=== PATIENT | female | born 1960 | race Caucasian/White ===

== ENCOUNTER 2020-01-15 00:27 | Day surgery (SDC) | payer OTHER, SELFPAY ==
[2020-01-13 16:15] VITALS: BMI 21.2
[2020-01-15 09:57] VITALS: BP 93/55; PULSE 82; RESP 16; TEMP 36.7; O2SAT 98
[2020-01-15] MEDS: LACTATED RINGERS 1,000 ML 150 ML IV CONT (10:14)
--- NOTE | 2020-01-15 10:28 | PM.HPGS ---
History of Present Illness History of Present Illness Consent: Risks, benefits, and alternatives have been discussed and questions answered. Patient agrees to proceed with procedure. Chief complaint: neoplasm screening Narrative: Jagdeep Barr is a 59 year old female for colon cancer screening [facility] Past Medical History Medical History (Updated 01/15/20 @ 10:30 by Alfa Zuñiga MD) CAD (coronary artery disease) GERD (gastroesophageal reflux disease) Hyperlipidemia Hypertension Non-Hodgkin lymphoma in remission Surgical History Surgical History (Updated 01/15/20 @ 10:28 by Parish Tafoya MD) S/P CABG x 3 Meds Home Medications and Allergies Home Medications Medication Instructions Recorded Confirmed Type B.subtil-B.bqftqw-Gsngzl-iesyv 1 cap PO DAILY 01/13/20 01/13/20 History [Provad] aspirin [Aspir-81] 81 mg PO DAILY 01/13/20 01/13/20 History evolocumab [Repatha SureClick] See Rx Instructions .ROUTE .COMPLEX 01/13/20 01/13/20 History isosorbide mononitrate 30 mg PO DAILY 01/13/20 01/13/20 History metoprolol succinate 50 mg PO DAILY 01/13/20 01/13/20 History [id number] 1 tablet PO BID 01/13/20 01/15/20 History [Xyzbac] omeprazole magnesium [Prilosec OTC] 20 mg PO DAILY 01/13/20 01/13/20 History oxycodone 5 mg PO Q4H PRN 01/13/20 01/13/20 History vitamin D3-folic acid [Ortho DF] 1 cap PO DAILY 01/13/20 01/13/20 History Allergies Allergy/AdvReac Type Severity Reaction Status Date / Time No Known Allergies Allergy Verified 01/15/20 09:54 Vital Signs Vital Signs - 24 hr 01/15/20 09:57 Temperature 36.7 C Pulse Rate 82 Respiratory Rate 16 Blood Pressure 93/55 L Pulse Oximetry 98 Exam Resp: Auscultation: clear to auscultation bilaterally Cardio: Rate: regular rate Rhythm: regular rhythm GI: GI Palp: Yes Soft to palpation and No Tenderness to palpation present (GI) Assessment and Plan Assessment and plan (1) Colon cancer screening: Code(s): Z12.11 - Encounter for screening for malignant neoplasm of colon Status: Acute
--- NOTE | 2020-01-15 10:29 | WPDANESEPPF ---
Anes - Initial Pre Proc Eval Procedure: Operation Date: 01/15/20 10:30 Proposed Procedures p Screening Colonoscopy - Alfa Zuñiga MD Date/Time: 01/15/20 10:29 Surgeon: Alfa Zuñiga MD Pre Op Diagnosis: neoplasm screening Patient Data Age: 59 Gender: F Height: 5 ft 3 in Weight: 54.6 kg Last Vital Signs Temp 98.1 F 01/15/20 09:57 Pulse 82 01/15/20 09:57 Resp 16 01/15/20 09:57 BP 93/55 L 01/15/20 09:57 Pulse Ox 98 01/15/20 09:57 Allergies Allergy/AdvReac Type Severity Reaction Status Date / Time No Known Allergies Allergy Verified 01/15/20 09:54 Home Medications Medication Instructions Recorded Confirmed Type B.subtil-B.nbnyqs-Oviejd-knmlt 1 cap PO DAILY 01/13/20 01/13/20 History [Provad] aspirin [Aspir-81] 81 mg PO DAILY 01/13/20 01/13/20 History evolocumab [Repatha SureClick] See Rx Instructions .ROUTE .COMPLEX 01/13/20 01/13/20 History isosorbide mononitrate 30 mg PO DAILY 01/13/20 01/13/20 History metoprolol succinate 50 mg PO DAILY 01/13/20 01/13/20 History [id number] [id number] 1 tablet PO BID 01/13/20 01/15/20 History [Xyzbac] omeprazole magnesium [Prilosec OTC] 20 mg PO DAILY 01/13/20 01/13/20 History oxycodone 5 mg PO Q4H PRN 01/13/20 01/13/20 History vitamin D3-folic acid [Ortho DF] 1 cap PO DAILY 01/13/20 01/13/20 History Patient hx anesthesia problems: none Family hx anesthesia problems: none PMFSH Past Medical History Medical History (Updated 01/15/20 @ 10:28 by Parish Tafoya MD) CAD (coronary artery disease) GERD (gastroesophageal reflux disease) Hyperlipidemia Hypertension Non-Hodgkin lymphoma in remission Surgical History Surgical History (Updated 01/15/20 @ 10:28 by Parish Tafoya MD) S/P CABG x 3 Anes - Eval Final PreProcedure Day of Procedure 01/15/20 10:29 Patient weight: normal Heart: regular rate and rhythm Lungs: clear to auscultation Airway: Mallampati scale class II Neurological: alert and oriented Last oral intake: >/= 8 hours ASA classification: III Emergent: no Anesthetic plan: proceed Anesthesia type and monitoring: general GIVS and standard monitoring Informed Consent: The patient's anesthetic plan and its attendant risks and benefits were discussed with the patient/family/POA. Questions were solicited and answers provided to the satisfaction of the patient/family/POA.
[2020-01-15 11:00] VITALS: BP 92/49; PULSE 64; RESP 16; O2SAT 98
[2020-01-15 11:10] VITALS: BP 85/54; PULSE 63; RESP 16; O2SAT 98
[2020-01-15 11:20] VITALS: BP 89/54; PULSE 53; RESP 22; O2SAT 99
== END 2020-01-15 11:39 | disposition home or self-care (01) ==
PROVIDERS: PCP Family Medicine; Referring Provider Obstetrics & Gynecology Gynecology; Visit Provider Internal Medicine Gastroenterology
PROC: 0DJD8ZZ Inspection of Lower Intestinal Tract, Via Natural or Artificial Opening Endoscopic (ICD-10-PCS; CPT 45378; principal; 2020-01-15 10:30)
DX: Z12.11 Encounter for screening for malignant neoplasm of colon (principal); Z80.0 Family history of malignant neoplasm of digestive organs; I10 Essential (primary) hypertension; I25.10 Atherosclerotic heart disease of native coronary artery without angina pectoris; E78.5 Hyperlipidemia, unspecified; K21.9 Gastro-esophageal reflux disease without esophagitis; Z85.72 Personal history of non-Hodgkin lymphomas; Z95.1 Presence of aortocoronary bypass graft; Z79.82 Long term (current) use of aspirin
CPT/HCPCS: 45378; J2001; J2704; J7120

== ENCOUNTER → 2020-09-16 09:18 | Outpatient (CLI) | payer OTHER, SELFPAY ==
--- NOTE | ~2020-09-16 | DEXA_ITS ---
Bone Density Report Name: Jagdeep Barr Age: 60 Sex: Female Ethnicity: White Date of : 1960 Indication: osteopenia; hysterectomy; postmenopausal Referring Provider: ROWDY, LAURIE Study: Bone densitometry was performed. Exam Date: September 16, 2020 Accession number: [id number] Bone Density: Region BMD T-score Z-score Classification AP Spine (L1-L4) 0.944 -0.9 0.6 Normal Femoral Neck (Left) 0.701 -1.3 0.0 Osteopenia Total Hip (Left) 0.866 -0.6 0.4 Normal Femoral Neck (Right) 0.605 -2.2 -0.8 Osteopenia Total Hip (Right) 0.866 -0.6 0.4 Normal Total Hip Mean 0.866 -0.6 0.4 Normal World Health Organization criteria for BMD impression classify patients as: Normal (T-score at or above -1.0), Osteopenia (T-score between -1.0 and -2.5), or Osteoporosis (T-score at or below -2.5). 10-year Fracture Risk(1): Major Osteoporotic Fracture 10% Hip Fracture 1.6% Reported Risk Factors: [place] (), Neck BMD=0.605, BMI=24.1 (1) FRAX(R) Version 3.08. Fracture probability calculated for an untreated patient. Fracture probability may be lower if the patient has received treatment. Previous Exams: Region Exam Age BMD T-score BMD Change BMD Change Date g/cm2 vs Baseline vs Previous AP Spine(L1-L4) 09/16/2020 60 0.944 -0.9 0.087* 0.037* 09/12/2018 58 0.907 -1.3 0.051* 0.044* 11/18/2015 55 0.864 -1.7 0.007 0.007 10/16/2013 53 0.857 -1.7 Total Hip(Left) 09/16/2020 60 0.866 -0.6 -0.020 -0.007 09/12/2018 58 0.873 -0.6 -0.012 -0.020 11/18/2015 55 0.893 -0.4 0.007 0.007 10/16/2013 53 0.885 -0.5 Total Hip(Right) 09/16/2020 60 0.866 -0.6 0.003 -0.035* 09/12/2018 58 0.901 -0.3 0.037* 0.003 11/18/2015 55 0.898 -0.4 0.034* 0.034* 10/16/2013 53 0.864 -0.6 *Denotes significance at 95% confidence level, LSC for AP Spine = 0.022 g/cm2, LSC for Total Hip = 0.027 g/cm2 Clinical Information Provided by Patient: Has the following medical conditions: Hysterectomy Patient maximum height was 62 Menopause Age: 38 Does not regularly consume dairy products Drinks caffeinated beverages Onset of menses at age 11 Number of children 2 Impression: The patient has low bone mass, based on the Right Femoral Neck T-score. The patient has a
== END ==
PROVIDERS: Visit Provider Nurse Practitioner
DX: M85.88 Other specified disorders of bone density and structure, other site (principal); M85.852 Other specified disorders of bone density and structure, left thigh; M85.851 Other specified disorders of bone density and structure, right thigh
CPT/HCPCS: 77080

== ENCOUNTER → 2020-11-25 07:16 | Outpatient (CLI) | payer OTHER, SELFPAY ==
--- NOTE | ~2020-11-25 | MM_ITS ---
EXAMINATION: MM screening ly BI w rox HISTORY: Screening mammogram TECHNIQUE: Craniocaudal and mediolateral oblique 3-D tomosynthesis images were obtained and synthetic 2-D images were generated. CAD analysis was submitted and interpreted. COMPARISON: 11/21/2019, 09/12/2018, 09/01/2017 bilateral digital screening mammogram examinations BREAST PARENCHYMAL COMPOSITION: There are scattered areas of fibroglandular density. FINDINGS: There are scattered bilateral benign calcifications. Stable mild fibroglandular asymmetry. There is no evidence of suspicious mass, calcification, or architectural distortion to suggest malign ned in either breast. There has been no suspicious interval change. IMPRESSION: 1. No mammographic evidence of malignancy. 2. Recommend routine screening mammography in one year. BI-RADS Category 2: Benign finding(s). Reviewed, dictated and finalized at location A. ID INTERN
== END ==
PROVIDERS: Visit Provider Nurse Practitioner
DX: Z12.31 Encounter for screening mammogram for malignant neoplasm of breast (principal)
CPT/HCPCS: 77063; 77067

== ENCOUNTER → 2020-12-16 10:46 | Outpatient (CLI) | payer OTHER, SELFPAY ==
--- NOTE | ~2020-12-16 | US_ITS ---
EXAMINATION: US transvaginal DATE: 12/16/2020 11:19 INDICATION: Left pelvic mass Comparison: Comparison to multiple prior studies sequentially, with oldest reviewed study dated 10/06. TECHNIQUE: Multiple transabdominal and endovaginal sonographic images of the pelvis performed. FINDINGS: The uterus is surgically absent. The ovaries are not visualized. No adnexal masses or fluid collections. There is no free fluid in the pelvis. There are no abnormal masses seen on either side . IMPRESSION: 1. Unremarkable pelvic ultrasound post hysterectomy. Reviewed, dictated and finalized at location B. OPERATOR
== END ==
PROVIDERS: Visit Provider Nurse Practitioner
DX: R10.2 Pelvic and perineal pain (principal); Z90.49 Acquired absence of other specified parts of digestive tract
CPT/HCPCS: 76830

== ENCOUNTER 2021-05-07 09:24 | Outpatient (CLI) | payer OTHER, SELFPAY ==
--- NOTE | ~2021-05-07 | MR_ITS ---
EXAMINATION: MR lumbar spine wo con DATE: 05/07/2021 10:11 INDICATION: Other spondylosis with myelopathy. TECHNIQUE: Magnetic resonance imaging (MRI) of the lumbar spine was performed without intravenous con trast. Sequences included sagittal T2-weighted FSE, sagittal T2-weighted FS FSE, sagittal T1-weighted FSE, and axial T2-weighted FSE. COMPARISON: Lumbar spine MRI 12/03/2014 FINDINGS: There is 11 degrees levoscoliosis of lumbar spine. There is 4 mm retrolisthesis of L1 on L2 and 3 mm retrolisthesis of L2 on L3 and L3 on L4. Vertebral body heights are normal. There is severe ly decreased disc height at L1-L2, moderately decreased disc height from L2-L3 through L4-L5, and sev erely decreased disc height at L5-S1 with endplate remodeling. The distal spinal cord signal intensit y is normal. The conus medullaris is at L1. The following disc levels are specifically discussed: L1-L2: The disc is bulging. There is no facet joint osteoarthritis. There is mild right and moderate left neural foraminal stenosis. There is mild central canal stenosis. L2-L3: The disc is bulging. There is moderate right and mild left facet joint osteoarthritis. There i s mild bilateral neural foraminal stenosis. There is mild central canal stenosis. L3-L4: The disc is bulging and has an annular fissure. There is mild bilateral facet joint osteoarthr itis. There is moderate right and mild left neural foraminal stenosis. There is mild central canal st enosis. L4-L5: The disc is bulging and has an annular fissure. There is severe bilateral facet joint osteoart hritis. There is moderate right and mild left neural foraminal stenosis. There is mild central canal stenosis. L5-S1: The disc is bulging. There is severe bilateral facet joint osteoarthritis. There is moderate b ilateral neural foraminal stenosis. There is mild central canal stenosis. IMPRESSION: 1. Severe lumbar spondylosis, worsened from 12/03/2014. 2. Lumbar levoscoliosis. Reviewed, dictated and finalized at location A.
== END 2021-05-07 09:25 | disposition home or self-care (01) ==
PROVIDERS: PCP Family Medicine; Visit Provider Nurse Practitioner
DX: M47.16 Other spondylosis with myelopathy, lumbar region (principal); M48.061 Spinal stenosis, lumbar region without neurogenic claudication; M47.817 Spondylosis without myelopathy or radiculopathy, lumbosacral region; M48.07 Spinal stenosis, lumbosacral region
CPT/HCPCS: 72148

== ENCOUNTER → 2021-12-01 10:13 | Outpatient (CLI) | payer OTHER, SELFPAY ==
--- NOTE | ~2021-12-01 | MM_ITS ---
EXAMINATION: MM screening [facility] BI w rox HISTORY: Screening mammogram TECHNIQUE: Craniocaudal and mediolateral oblique 3-D tomosynthesis images were obtained and synthetic 2-D images were generated. CAD analysis was submitted and interpreted. COMPARISON: 11/25/2020, 11/20/2019, 09/12/2018 BREAST PARENCHYMAL COMPOSITION: There are scattered areas of fibroglandular density. FINDINGS: Stable masses in the upper outer quadrants of the breasts likely represent intramammary lym ph nodes and are considered benign given the lack of interval change. There is no evidence of suspici ous mass, calcification, or architectural distortion to suggest malignancy in either breast. There currie s been no suspicious interval change. IMPRESSION: 1. No mammographic evidence of malignancy. 2. Recommend routine screening mammography in one year. BI-RADS Category 2: Benign finding(s). Reviewed, dictated and finalized at location A. R TAILER
== END ==
PROVIDERS: PCP Family Medicine; Visit Provider Nurse Practitioner
DX: Z12.31 Encounter for screening mammogram for malignant neoplasm of breast (principal)
CPT/HCPCS: 77063; 77067

== ENCOUNTER 2022-09-30 07:14 | Observation (INO) | payer OTHER, SELFPAY ==
[2022-09-30] VITALS (14 sets, daily range): BP systolic 134–176; BP diastolic 59–87; PULSE 67–88; RESP 15–20; TEMP 36.6–37; O2SAT 98–100; BMI 21.0
--- NOTE | ~2022-09-30 | CT_ITS ---
EXAMINATION: CT abdomen pelvis w con DATE: 09/30/2022 08:59 INDICATION: Bloody stool, vomiting, abdominal cramping TECHNIQUE: Computed tomography (CT) of the abdomen and pelvis was performed with 100 CC Omnipaque 350 intravenous contrast. Automated exposure control and iterative reconstruction technique were employe d. Exam dose: 193.50 mGy-cm total exam DLP. COMPARISON: None. FINDINGS: Status post sternotomy. Normal heart size. No pericardial or pleural effusion. The lung bas es are clear of infiltrate or consolidation. Minimal discoid atelectasis or scarring at the base of t he lingula. Hepatic steatosis. Possible small hemangioma of the posterior lateral aspect of the hepatic dome. The gallbladder appears unremarkable. No bile duct or pancreatic duct dilatation. No pancreatic mass les ion or calcification is detected. Normal splenic size. Normal morphology of the adrenal glands. 2 cm left renal cyst. The kidneys are otherwise unremarkable. Normal caliber of the abdominal aorta. No intraperitoneal or retroperitoneal or pelvic mass lesion or adenopathy or ascites. The urinary bladder is unremarkable. The uterus is absent. There is thickening of the wall of the colon in the sigmoid and descending colon particularly, with p ericolic soft tissue thickening, particularly prominent along the descending colon. Findings are cons istent with colitis. Consider infectious, inflammatory or ischemic colitis. No significant stenosis o f the celiac or superior mesenteric arteries is noted. There is prominent calcification at the origin of the inferior mesenteric artery. No bowel obstruction or intraperitoneal free air. Small fat-containing left inguinal hernia. There is degenerative disc disease throughout the lumbar spine, particular severe at L1-2, L4-5 and L 5-S1. There is associated minimal retrolisthesis at L1-2, L2-3 and L5-S1. IMPRESSION: Thickening of the wall of the colon, particularly sigmoid and descending colon, with per icolic stranding. Findings are consistent with colitis. Consider infectious, inflammatory or ischemic colitis. Hepatic steatosis Possible small hepatic hemangioma 2 cm left renal cyst Reviewed, dictated and finalized at [facility]. Reviewed, dictated and finalized at location A. GHT CLERK IMPRESSION: Thickening of the wall of the colon, particularly sigmoid and desc ending colon, with pericolic stranding. Findings are consistent with colitis. C onsider infectious, inflammatory or ischemic colitis. Hepatic steatosis Possible small hepatic hemangioma 2 cm left renal cyst
[2022-09-30 08:07] LABS: Basophils Percent Auto 0.2 % (0.2-1.2); Eosinophils Percent Auto 0.3 % (0-4.4); Hematocrit 37.4 % (37.0-47.0); Hemoglobin 12.6 g/dL (12.0-15.0); Immature Granulocyte Absolute 0.05 K/mm3 (0.00-0.031); Immature Granulocyte Percent A 0.4 % (0-0.5); Lymphocytes Absolute Auto 1.07 K/mm3 (0.9-3.2); Lymphocytes Percent Auto 7.7 % (18.3-44.2); Mean Corpuscular HGB Conc 33.7 g/dl (32-36); Mean Corpuscular Hemoglobin 32.1 pg (26-34); Mean Corpuscular Volume 95.4 fl (80-100); Mean Platelet Volume 9.3 fl (7.4-10.4); Monocytes Absolute Auto 1.8 K/mm3 (0.1-0.6); Monocytes Percent Auto 13.3 % (2.6-8.5); Neutrophils Absolute Auto 10.8 K/mm3 (1.3-6.7); Neutrophils Percent Auto 78.1 % (45.5-73.1); Platelet Count Result 304 k/mm3 (150-375); Red Blood Count 3.92 M/mm3 (4.2-5.4); Red Cell Distribution Width 12.8 % (11.5-14.5); White Blood Count 13.8 K/mm3 (4.5-10.0)
[2022-09-30 08:20] LABS: Alanine Aminotransferase 25 U/L (6-35); Albumin Level 4.9 g/dL (3.5-5.1); Alkaline Phosphatase 85 U/L (38-126); Anion Gap 11 mmol/L (8-16); Aspartate Amino Transferase 34 U/L (14-36); Bilirubin,Total 0.5 mg/dL (0.2-1.3); Blood Urea Nitrogen 23 mg/dL (7-17); Calcium 9.8 mg/dL (8.4-10.2); Carbon Dioxide 25 mmol/L (22-30); Chloride 104 mmol/L (98-107); Estimated CRCL calculation 58 ml/min; Estimated Glomerular Filt Rate > 60; Glucose 119 mg/dL (65-110); Lipase 128 U/L (23-300); Potassium 4.1 mmol/L (3.4-5.0); Sodium 140 mmol/L (137-145)
[2022-09-30 08:27] LABS: Partial Thromboplastin Time 27.1 SECONDS (22.3-36.8); Prothrombin Time 13.1 Seconds (11.1-14.7)
--- NOTE | 2022-09-30 09:39 | ED.GENADULT ---
HPI - General Adult General Chief complaint: GI Bleed Stated complaint: BLOOD IN STOOL Time Seen by Provider: 09/30/22 08:27 Source: patient and RN notes reviewed Mode of arrival: ambulatory Limitations: no limitations History of Present Illness HPI narrative: This is a 62 year old female who presents for evaluation of rectal bleeding. She states last night she developed lower abdominal cramping and this morning she developed diarrhea. She initially had nonbloody watery diarrhea, and this morning she developed bright red per rectum. Her last episode started 2 hours ago. She still continues to have mild lower abdominal cramping. She denies nausea, vomiting, fever, or chills. She denies recent antibiotics use. She denies history of similar episodes. Related Data Home Medications Medication Instructions Recorded Confirmed aspirin 81 mg tablet,delayed 81 mg PO DAILY 01/13/20 09/30/22 release (Aspir-) evolocumab 140 mg/mL subcutaneous See Rx Instructions .Route .COMPLEX 01/13/20 09/30/22 pen injector ([employer]) isosorbide mononitrate 30 mg 30 mg PO DAILY 01/13/20 09/30/22 tablet,extended release 24 hr metoprolol succinate 50 mg 50 mg PO DAILY 01/13/20 09/30/22 tablet,extended release 24 hr vitamin D3 94.38 mcg (3,775 1 cap PO DAILY 01/13/20 09/30/22 unit)-folic acid 1 mg capsule (Ortho DF) ascorbic acid (vitamin C) 500 mg PO DAILY 09/30/22 09/30/22 co M00-dzlb oil-omega 3-E 2,400 mg PO DAILY 09/30/22 09/30/22 cyanocobalamin (vitamin B-12) 1,000 mg PO DAILY 09/30/22 09/30/22 lisinopril 10 mg tablet 10 mg PO DAILY 09/30/22 09/30/22 multivitamin with minerals-folic 1 tablet PO DAILY 09/30/22 09/30/22 acid 0.4 mg tablet Allergies Allergy/AdvReac Type Severity Reaction Status Date / Time No Known Allergies Allergy Verified 01/15/20 09:54 Review of Systems Review of Systems: All systems reviewed & are unremarkable except as noted in HPI and below Constitutional: Constitutional: Denies chills, Denies fatigue and Denies fever(s) Respiratory: Respiratory: Denies chest congestion, Denies cough and Denies dyspnea Gastrointestinal: Gastrointestinal: Reports abdominal pain, Reports diarrhea, Denies nausea and Denies vomiting Genitourinary: Genitourinary: Denies abnormal vaginal bleeding Musculoskeletal: Musculoskeletal: Denies back pain [facility] Past Medical History Medical History (Updated 09/30/22 @ 18:18 by Romelia Gilbert MD) Abdominal pain Blood in stool CAD (coronary artery disease) GERD (gastroesophageal reflux disease) Hyperlipidemia Hypertension Leukocytosis Non-Hodgkin lymphoma in remission s/p chemotherapy tx in 2004 Surgical History Surgical History (Updated 09/30/22 @ 16:25 by Gregg Mckeon MD) S/P CABG x 3 2017 S/P HATTIE (total abdominal hysterectomy) Family History Family History (Updated 09/30/22 @ 16:26 by Gregg Mckeon MD) Father Heart disease Mother Heart disease Sibling ALS (amyotrophic lateral sclerosis) Social History Social History (Updated 09/30/22 @ 16:27 by Gregg Mckeon MD) Social History: lives at home with her . She quit tobacco in 1977 after smoking 1 pack per week 4 years. She drinks 2 alcoholic drinks per week. No drug use but used acid and marijuana when she was young. Full code. She nominates her to be the one who would make medical decisions for her if she is unable. Smoking packs per day: 1 Smoking cigarettes per day: 20.0 Years smoked: 4 Smoking pack-years: 4.00 Smoking status: Former smoker Tobacco type: cigarettes Alcohol intake: current Drinks per week: 2 Substance use: never Substance use type: does not use Lack of Transportation: No Lack of Food: Never True Current Housing: I Have Housing Concerned About Future Housing: No Difficulty Paying Gas/Electric Bills: No Difficulty Paying for Meds: No Currently Unemployed: No Education: High School Diploma/GED D
[2022-09-30] MEDS: SODIUM CHLORIDE 0.9% IV 1,000 ML 999 ML IV CONT (09:46)
--- NOTE | 2022-09-30 09:49 | PC.NURSE ---
RN to bedside to start fluids, pt had episode stool incontinence. Pt stood up and approx 8 in diameter puddle of bright red blood dripped onto floor from rectum, no clots present, on bedding was smears. RN replaced bed linens, pt cleaned herself up and given clean gown. MD Gilbert made aware. IV fluids infusing, call light in reach.
[2022-09-30 11:32] LABS: Hematocrit 34.2 % (37.0-47.0); Hemoglobin 11.5 g/dL (12.0-15.0)
[2022-09-30 11:57] LABS: Influenza A QL RT-PCR Negative (Negative); Influenza B QL RT-PCR Negative (Negative); SARS-CoV-2 RNA PCR Negative
[2022-09-30] MEDS: SODIUM CHLORIDE 0.9% IV 1,000 ML 125 ML IV CONT (14:01)
[2022-09-30 16:03] LABS: Hematocrit 34.8 % (37.0-47.0); Hemoglobin 11.6 g/dL (12.0-15.0)
--- NOTE | 2022-09-30 16:12 | PM.IMHP ---
H&P: HPI History of Present Illness Date/Time: 09/30/22 16:12 Chief Complaint: Rectal bleeding Narrative: 62yo female with HTN, CAD and GERD presents to the ED with complaints of nausea, vomiting, diarrhea with rectal bleeding. Pateint was feeling well until after dinner when she developed crampy abdominal pain then nausea, comiting and diarrhea. She had about 3 episodes of emesis without bleeding. No fever but with chills. She had about 4 diarrheal stools with some improvement initially but then with recurrent crampy abd pain with bright red blood per rectum. Crampy pain would resolve after the BM. She was up frequently overnight with these symptoms. The nausea and vomiting resolved. She had about 8 bloody BMs prior to admission. No history of IBS or IBD. Her last colonoscopy was in January 2020 which was normal. She has never had this before. No sick contacts. No recent antibiotics. She has city water. No recent travel. She denies any headaches, chest pain, palpitations, shortness of breath, cough, dysuria or hematuria. No new medications. This morning her symptoms worsened and she presented to the hospital for evaluation. In the ED, blood pressure was elevated at 150 8/78 otherwise was hemodynamically stable. WBC 13.8K and Hgb 12.6. CT A/P showing colonic wall thickening in the sigmoid and descending colon with pericolic stranding. She was started on IV fluids and Zosyn. Serial HH ordered. She was admitted for further care. Review of Systems Review of Systems: All systems reviewed & are unremarkable except as noted in HPI and below PMFSH Past Medical History Medical History (Updated 09/30/22 @ 18:18 by Romelia Gilbert MD) Abdominal pain Blood in stool CAD (coronary artery disease) GERD (gastroesophageal reflux disease) Hyperlipidemia Hypertension Leukocytosis Non-Hodgkin lymphoma in remission s/p chemotherapy tx in 2004 Surgical History Surgical History (Updated 09/30/22 @ 16:25 by Gregg Mckeon MD) S/P CABG x 3 2017 S/P HATTIE (total abdominal hysterectomy) Family History Family History (Updated 09/30/22 @ 16:26 by Gregg Mckeon MD) Father Heart disease Mother Heart disease Sibling ALS (amyotrophic lateral sclerosis) Social History Social History (Updated 09/30/22 @ 16:27 by Gregg Mckeon MD) Social History: lives at home with her . She quit tobacco in 1977 after smoking 1 pack per week 4 years. She drinks 2 alcoholic drinks per week. No drug use but used acid and marijuana when she was young. Full code. She nominates her to be the one who would make medical decisions for her if she is unable. Smoking packs per day: 1 Smoking cigarettes per day: 20.0 Years smoked: 4 Smoking pack-years: 4.00 Smoking status: Former smoker Tobacco type: cigarettes Alcohol intake: current Drinks per week: 2 Substance use: never Substance use type: does not use Lack of Transportation: No Lack of Food: Never True Current Housing: I Have Housing Concerned About Future Housing: No Difficulty Paying Gas/Electric Bills: No Difficulty Paying for Meds: No Currently Unemployed: No Education: High School Diploma/GED Difficulty w/ Childcare or Family Care: No Spiritual care concerns: No Meds Home Medications and Allergies Home Medications Medication Instructions Recorded Confirmed Type aspirin 81 mg tablet,delayed 81 mg PO DAILY 01/13/20 09/30/22 History release (Aspir-) evolocumab 140 mg/mL subcutaneous See Rx Instructions .Route .COMPLEX 01/13/20 09/30/22 History pen injector (Yoanna Villatoro) isosorbide mononitrate 30 mg 30 mg PO DAILY 01/13/20 09/30/22 History tablet,extended release 24 hr metoprolol succinate 50 mg 50 mg PO DAILY 01/13/20 09/30/22 History tablet,extended release 24 hr vitamin D3 94.38 mcg (3,775 1 cap PO DAILY 01/13/20 09/30/22 History unit)-folic acid 1 mg capsule (Ortho DF) ascorbic
--- NOTE | 2022-09-30 17:52 | WPDGICN ---
Assessment and Plan Assessment and plan (1) Colitis: Code(s): K52.9 - Noninfective gastroenteritis and colitis, unspecified Status: Acute Assessment and Plan: differential could be infectious vs ischemic but already doing better, no more pain supportive care with iv fluids and antibiotics exam benign today stool sample pending liquid diet and then advance as tolerated (2) Blood in stool: Code(s): K92.1 - Melena Status: Acute Assessment and Plan: h/h stable from colitis may need colonoscopy in 4-6 weeks after fully recovered (3) Leukocytosis: Code(s): D72.829 - Elevated white blood cell count, unspecified Status: Acute Assessment and Plan: trending no fever (4) Abdominal pain: Code(s): R10.9 - Unspecified abdominal pain Status: Acute Assessment and Plan: almost gone (5) Hypertension: Code(s): I10 - Essential (primary) hypertension Status: Acute GI Consult Note Consult date/time: 09/30/22 17:52 Reason for consult: colitis, bloody stools HPI: Jagdeep Barr is a 62 year old female with history of?HTN, CAD and GERD how came to the ED with new onset of nausea, vomiting, diarrhea with rectal bleeding that started yesterday. She developed crampy abdominal pain then nausea, vomiting and diarrhea, no fever but had chills, then noted loose stools with bright red blood per rectum. Her last colonoscopy was in January 2020 which was normal. Denies sick contacts, no recent antibiotics, no recent travel.? Labs showed WBC 13.8K and Hgb 12.6. CT A/P reviewed and showed colonic wall thickening in the sigmoid and descending colon with pericolic stranding. She was started on IV fluids and Zosyn. Today already feeling better and denies pain. Review of Systems Review of Systems: All systems reviewed & are unremarkable except as noted in HPI and below Constitutional: Constitutional: Reports chills, Denies fatigue and Denies fever(s) Eyes: Eyes: Denies blurry vision ENT: Reports Normal hearing present Cardiovascular: Cardiovascular: Denies chest pain Respiratory: Respiratory: Denies chest congestion, Denies cough and Denies dyspnea Gastrointestinal: Gastrointestinal: Reports abdominal pain, Reports diarrhea, Denies nausea and Denies vomiting Genitourinary: Genitourinary: Denies abnormal vaginal bleeding Musculoskeletal: Musculoskeletal: Denies back pain Integumentary/Breasts: Skin/Breast: Denies rash Neurologic: Denies Abnormal speech present Psychiatric: Psychiatric: Denies anxiety [facility] Past Medical History Medical History (Updated 09/30/22 @ 17:56 by Shantanu Kuhn MD) Abdominal pain Blood in stool CAD (coronary artery disease) GERD (gastroesophageal reflux disease) Hyperlipidemia Hypertension Leukocytosis Non-Hodgkin lymphoma in remission s/p chemotherapy tx in 2004 Surgical History Surgical History (Updated 09/30/22 @ 16:25 by Gregg Mckeon MD) S/P CABG x 3 2017 S/P HATTIE (total abdominal hysterectomy) Family History Family History (Updated 09/30/22 @ 16:26 by Gregg Mckeon MD) Father Heart disease Mother Heart disease Sibling ALS (amyotrophic lateral sclerosis) Social History Social History (Updated 09/30/22 @ 16:27 by Gregg Mckeon MD) Social History: lives at home with her . She quit tobacco in 1977 after smoking 1 pack per week 4 years. She drinks 2 alcoholic drinks per week. No drug use but used acid and marijuana when she was young. Full code. She nominates her to be the one who would make medical decisions for her if she is unable. Smoking packs per day: 1 Smoking cigarettes per day: 20.0 Years smoked: 4 Smoking pack-years: 4.00 Smoking status: Former smoker Tobacco type: cigarettes Alcohol intake: current Drinks per week: 2 Substance use: never Substance use type: does not use Lack of Transportation: No Lack of Food: Never
[2022-09-30 19:13] LABS: Toxigenic C. Diff NEGATIVE (NEGATIVE)
--- NOTE | 2022-09-30 19:17 | ADMGEN ---
This patient, Jagdeep Barr, was admitted to 2 Medical Room 251-01. Patient/family oriented to hospital policies and general routines including ID bracelet, bed and alarms, visiting hours, pain management, procedures, bathroom and other care routines, personal items, smoking policy, room service/diet, and visiting hours. Information on how to activate the Rapid Response Team has been discussed. Patient/Family are encouraged to report perceived risks to care and to ask questions if they do not understand what they are told or what they should do.
[2022-09-30 22:14] LABS: Hematocrit 33.4 % (37.0-47.0); Hemoglobin 11.2 g/dL (12.0-15.0)
[2022-10-01] MEDS: SODIUM CHLORIDE 0.9% IV 1,000 ML 125 ML IV CONT (02:35)
[2022-10-01 05:47] LABS: Basophils Percent Auto 0.3 % (0.2-1.2); Eosinophils Absolute Auto 0.1 K/mm3 (0-0.3); Eosinophils Percent Auto 1.4 % (0-4.4); Hematocrit 33.9 % (37.0-47.0); Hemoglobin 11.2 g/dL (12.0-15.0); Immature Granulocyte Absolute 0.03 K/mm3 (0.00-0.031); Immature Granulocyte Percent A 0.3 % (0-0.5); Lymphocytes Absolute Auto 1.15 K/mm3 (0.9-3.2); Lymphocytes Percent Auto 13.2 % (18.3-44.2); Mean Corpuscular Hemoglobin 31.9 pg (26-34); Mean Corpuscular Volume 96.6 fl (80-100); Mean Platelet Volume 9.3 fl (7.4-10.4); Monocytes Absolute Auto 1.2 K/mm3 (0.1-0.6); Neutrophils Absolute Auto 6.2 K/mm3 (1.3-6.7); Neutrophils Percent Auto 70.8 % (45.5-73.1); Platelet Count Result 238 k/mm3 (150-375); Red Blood Count 3.51 M/mm3 (4.2-5.4); Red Cell Distribution Width 12.9 % (11.5-14.5); White Blood Count 8.7 K/mm3 (4.5-10.0)
[2022-10-01 05:59] LABS: Alanine Aminotransferase 17 U/L (6-35); Albumin Level 3.5 g/dL (3.5-5.1); Alkaline Phosphatase 51 U/L (38-126); Anion Gap 3 mmol/L (8-16); Aspartate Amino Transferase 32 U/L (14-36); Bilirubin,Total 0.7 mg/dL (0.2-1.3); Blood Urea Nitrogen 8 mg/dL (7-17); Calcium 8.2 mg/dL (8.4-10.2); Carbon Dioxide 22 mmol/L (22-30); Chloride 111 mmol/L (98-107); Estimated CRCL calculation 78 ml/min; Estimated Glomerular Filt Rate > 60; Glucose 105 mg/dL (65-110); Sodium 136 mmol/L (137-145)
[2022-10-01 06:00] VITALS: BP 114/54; PULSE 63; RESP 20; TEMP 36.3; O2SAT 98
[2022-10-01] MEDS: CYANOCOBALAMIN 1,000 MCG TABLET 1000 MCG PO (09:12)
[2022-10-01 09:13] VITALS: PULSE 80
[2022-10-01] MEDS: lisinopriL 10 MG TABLET PO (09:13)
[2022-10-01] MEDS: METOPROLOL SUCCINATE EXT REL 50 MG TABCR PO (09:13)
[2022-10-01] MEDS: ISOSORBIDE MONONITRATE 30 MG TAB.ER.24H PO (09:15)
--- NOTE | 2022-10-01 09:40 | WPDGIPROGNO ---
Progress Note: A&P Assessment and Plan (1) Colitis: Code(s): K52.9 - Noninfective gastroenteritis and colitis, unspecified Status: Acute Assessment and Plan: CT scan shows: There is thickening of the wall of the colon in the sigmoid and descending colon particularly, with pericolic soft tissue thickening, particularly prominent along the descending colon. Findings are consistent with colitis. Consider infectious, inflammatory or ischemic colitis. No significant stenosis of the celiac or superior mesenteric arteries is noted. There is prominent calcification at the origin of the inferior mesenteric artery. No bowel obstruction or intraperitoneal free air. I think this is most consistent with ischemic colitis. Stools for enteric pathogens have been sent. (2) Bright red rectal bleeding: Code(s): K62.5 - Hemorrhage of anus and rectum Status: Acute Assessment and Plan: It appears that this has stopped for now. History of coronary artery disease and coronary bypass, triple. (3) CAD (coronary artery disease): Code(s): I25.10 - Atherosclerotic heart disease of [place] coronary artery without angina pectoris Status: Acute (4) Leukocytosis: Code(s): D72.829 - Elevated white blood cell count, unspecified Status: Acute Assessment and Plan: White blood count was elevated at 13,800 but now is down to 8,700. currently on Zosyn. (5) Nausea and vomiting: Code(s): R11.2 - Nausea with vomiting, unspecified Status: Acute Assessment and Plan: No further emesis, but she is not very interested in her clear liquid diet tray. She does not like lemon popsicles. She has tried some broth and kept it down. Will advance diet when she is ready. Subjective Date/time seen: 10/01/22 09:40 Jagdeep states that she felt well until she had some broccoli at Thanksgiving dinner. She then became warm and sweaty and developed nausea. She had cramping. She went to the bathroom and had a bowel movement. Because she was so warm and diaphoretic she tried to take a shower and was incontinent in the shower. A short time later she began to have bloody stools multiple times. She also was nauseated and vomited at least once. She is feeling somewhat better. She has had no emesis during the night and is tolerating some clear liquids but not particularly hungry yet Exam Const: General: alert Orientation/consciousness: patient oriented x3 Resp: Auscultation: clear to auscultation bilaterally Cardio: Rhythm: regular rhythm GI: GI Palp: Yes Soft to palpation, Yes Tenderness to palpation present (GI) ( diffusely and mildly tender left lower quadrant and left mid abdomen) and Yes No hepatosplenomegaly present Auscultation: normal bowel sounds Neuro: General: patient oriented x3 Objective Data Vital Signs Vital Signs: Vital Signs - 24 hr 09/30/22 12:23 09/30/22 10:06 09/30/22 10:16 Temperature Pulse Rate 74 Respiratory Rate 16 Blood Pressure 150/76 H Pulse Oximetry 99 100 99 Oxygen Delivery 09/30/22 12:44 09/30/22 15:01 09/30/22 20:51 Temperature 37.0 C 36.8 C Pulse Rate 77 71 Respiratory Rate 18 20 Blood Pressure 142/67 H 134/59 L Pulse Oximetry 100 98 Oxygen Delivery Room Air 10/01/22 06:00 10/01/22 09:13 Temperature 36.3 C L Pulse Rate 63 80 Respiratory Rate 20 Blood Pressure 114/54 L Pulse Oximetry 98 Oxygen Delivery Intake/Output Intake/Output: Intake & Output 09/28/22 09/29/22 09/30/22 10/01/22 23:59 23:59 23:59 23:59 Intake Total 2200 700 Balance 2200 700 Meds/Results Medications: Active Medications Generic Name Dose Route Start Last Admin Trade Name Freq PRN Reason Stop Dose Admin Ascorbic Acid 500 mg 10/01/22 09:00 Ascorbic Acid 500 Mg Tablet PO DAILY SANDRA Cyanocobalamin 1,000 mcg 10/01/22 09:00 10/01/22 09:12 Cyanocobalamin 1,000 Mcg Tablet PO 1,000 mcg DAILY SANDRA A
[2022-10-01] MEDS: ASCORBIC ACID 500 MG TABLET PO (10:51)
[2022-10-01] MEDS: SODIUM CHLORIDE 0.9% IV 1,000 ML 70 ML IV CONT ×2 (10:53→23:13)
--- NOTE | 2022-10-01 12:33 | PM.IMPN ---
Progress Note: A&P Assessment and Plan (1) Colitis: Code(s): K52.9 - Noninfective gastroenteritis and colitis, unspecified Status: Acute Assessment and Plan: Patient develops abdominal cramping and bright red blood per rectum prior to admission. CT of the abdomen and pelvis showed thickening of the colon particularly sigmoid and descending colon with pericolonic stranding. Findings are consistent with colitis. Infectious versus ischemic colitis. She was started on Zosyn on admission. White count was elevated on admission but now normal. CDiff negative. Stool cultures pending. She is having clinical improvement with resolving symptoms. Advance diet per GI. Appreciate GI input. (2) Bright red rectal bleeding: Code(s): K62.5 - Hemorrhage of anus and rectum Status: Acute Assessment and Plan: As above. Hemoglobin has dropped to 11.2 but overall stable. Continue to follow. (3) CAD (coronary artery disease): Code(s): I25.10 - Atherosclerotic heart disease of [place] coronary artery without angina pectoris Status: Acute Assessment and Plan: No complaints of chest pain or shortness of breath. Continue mTOR, lisinopril and Toprol. Aspirin is on hold. (4) Hypertension: Code(s): I10 - Essential (primary) hypertension Status: Acute Assessment and Plan: Patient's blood pressure was reviewed on 10/01 Blood pressure was mildly elevated yesterday but has improved since resuming oral medications. Will continue current medications. (5) Hyperlipidemia: Code(s): E78.5 - Hyperlipidemia, unspecified Status: Acute Assessment and Plan: Stable. LFTs normal. Repatha remains on hold. Subjective Date/time seen: 10/01/22 12:33 Interval history: 62yo female with HTN and CAD here for BRBPR and found to have colitis. No problems overnight. Tolerated the liquid diet this morning. No CP or SOB, No cough. No n/v. Still with crampy abd pain with resulting BM. Had 12 BMs yesterday and 2 so far since midnight. Still having bloody stools but seems to be fading. Exam Narrative: AF 97.4 114/54 80 20 98% ra Gen - NARD Chest - CTA bilaterally, nml RR CV - RRR S1/s2 Abd - soft, minimal left sided abd pain. No guarding or rebound. Ext - no pedal edema. Neuro - nonfocal Psych - normal mood and affect. Skin - warm and dry. Objective Data Vital Signs Vital Signs: Vital Signs - 24 hr 09/30/22 12:44 09/30/22 15:01 09/30/22 20:51 Temperature 98.6 F 98.3 F Pulse Rate 77 71 Respiratory Rate 18 20 Blood Pressure 142/67 H 134/59 L Pulse Oximetry 100 98 Oxygen Delivery Room Air 10/01/22 06:00 10/01/22 09:13 Temperature 97.4 F L Pulse Rate 63 80 Respiratory Rate 20 Blood Pressure 114/54 L Pulse Oximetry 98 Oxygen Delivery Intake/Output Intake/Output: Intake & Output 09/28/22 09/29/22 09/30/22 10/01/22 23:59 23:59 23:59 23:59 Intake Total 2200 2200 Balance 2200 2200 Meds/Results Medications: Active Medications Generic Name Dose Route Start Last Admin Trade Name Freq PRN Reason Stop Dose Admin Ascorbic Acid 500 mg 10/01/22 09:00 10/01/22 10:51 Ascorbic Acid 500 Mg Tablet PO 500 mg DAILY SANDRA Administration Cyanocobalamin 1,000 mcg 10/01/22 09:00 10/01/22 09:12 Cyanocobalamin 1,000 Mcg Tablet PO 1,000 mcg DAILY SANDRA Administration Piperacillin/Tazobactam/Dextrose 3.375 gm in 50 mls @ 100 mls/hr 09/30/22 18:00 10/01/22 07:44 Zosyn 3.375 Gm/D5w 50ml Pm IVPB Infused Q6HR SANDRA Infusion Sodium Chloride 1,000 mls @ 70 mls/hr 09/30/22 10:25 10/01/22 10:53 Normal Saline Iv IV CONT 70 mls/hr .[id number] SANDRA Administration Isosorbide Mononitrate 30 mg 10/01/22 09:00 10/01/22 09:15 Isosorbide Mononitrate 30 Mg Tab.Er.24h PO 30 mg DAILY SANDRA Administration Lisinopril 10 mg 10/01/22 09:00 10/01/22 09:13 Lisinopril 10 Mg Tablet PO 10
[2022-10-01 14:00] VITALS: BP 95/53; PULSE 67; RESP 18; TEMP 37.1; O2SAT 98
[2022-10-01 19:35] VITALS: BP 122/60; PULSE 67; RESP 18; TEMP 36.3; O2SAT 100
--- NOTE | 2022-10-02 03:16 | PC.NURSE ---
Patient IV site infiltrated. Pt difficult stick. Several attempts to restart- unable. Notified Dr Graham of such , as well pt with lower left abdominal pain. D?C IVF and IV abx Meds started as ordered... Diet advance regular after day tolerated cl liq... no N/V decreased bloody stool- since 1899 - 1 stool pink and then 4 brown. Continue to monitor closely.
[2022-10-02] MEDS: ACETAMINOPHEN 500 MG TABLET 1000 MG PO (03:49)
[2022-10-02 04:15] VITALS: BP 124/68; PULSE 67; RESP 18; TEMP 36.6; O2SAT 100
[2022-10-02 06:07] LABS: Hematocrit 31.4 % (37.0-47.0); Hemoglobin 10.6 g/dL (12.0-15.0); Mean Corpuscular HGB Conc 33.8 g/dl (32-36); Mean Corpuscular Volume 97.8 fl (80-100); Mean Platelet Volume 9.4 fl (7.4-10.4); Platelet Count Result 262 k/mm3 (150-375); Red Blood Count 3.21 M/mm3 (4.2-5.4); Red Cell Distribution Width 12.5 % (11.5-14.5)
[2022-10-02 06:24] LABS: Anion Gap 10 mmol/L (8-16); Blood Urea Nitrogen 5 mg/dL (7-17); Calcium 8.7 mg/dL (8.4-10.2); Carbon Dioxide 22 mmol/L (22-30); Chloride 110 mmol/L (98-107); Estimated CRCL calculation 78 ml/min; Estimated Glomerular Filt Rate > 60; Glucose 96 mg/dL (65-110); Potassium 3.4 mmol/L (3.4-5.0); Sodium 142 mmol/L (137-145)
[2022-10-02] MEDS: metroNIDAZOLE 250 MG TABLET 500 MG PO ×2 (06:32→13:28)
[2022-10-02 08:30] VITALS: PULSE 61; RESP 18; O2SAT 99
[2022-10-02] MEDS: ISOSORBIDE MONONITRATE 30 MG TAB.ER.24H PO (08:32)
[2022-10-02 08:33] VITALS: PULSE 61
[2022-10-02] MEDS: ASCORBIC ACID 500 MG TABLET PO (08:33)
[2022-10-02] MEDS: predniSONE 20 MG TABLET 40 MG PO (08:33)
[2022-10-02] MEDS: levoFLOXacin 750 MG TABLET PO (08:33)
[2022-10-02] MEDS: METOPROLOL SUCCINATE EXT REL 50 MG TABCR PO (08:33)
[2022-10-02] MEDS: CYANOCOBALAMIN 1,000 MCG TABLET 1000 MCG PO (08:34)
[2022-10-02] MEDS: lisinopriL 10 MG TABLET PO (08:34)
[2022-10-02 08:37] VITALS: BP 118/62; PULSE 61; O2SAT 99
--- NOTE | 2022-10-02 09:59 | WPDGIPROGNO ---
Progress Note: A&P Assessment and Plan (1) Colitis: Code(s): K52.9 - Noninfective gastroenteritis and colitis, unspecified Status: Acute Assessment and Plan: CT scan shows: There is thickening of the wall of the colon in the sigmoid and descending colon particularly, with pericolic soft tissue thickening, particularly prominent along the descending colon. Findings are consistent with colitis. Consider infectious, inflammatory or ischemic colitis. No significant stenosis of the celiac or superior mesenteric arteries is noted. There is prominent calcification at the origin of the inferior mesenteric artery. No bowel obstruction or intraperitoneal free air. I think this is most consistent with ischemic colitis. Stools for enteric pathogens have been sent. (2) Bright red rectal bleeding: Code(s): K62.5 - Hemorrhage of anus and rectum Status: Acute Assessment and Plan: It appears that this has stopped for now. History of coronary artery disease and coronary bypass, For which she is on aspirin. (3) CAD (coronary artery disease): Code(s): I25.10 - Atherosclerotic heart disease of [place] coronary artery without angina pectoris Status: Acute (4) Leukocytosis: Code(s): D72.829 - Elevated white blood cell count, unspecified Status: Acute Assessment and Plan: White blood count was elevated at 13,800 but now is down to 8,700. currently on Zosyn. (5) Nausea and vomiting: Code(s): R11.2 - Nausea with vomiting, unspecified Status: Acute Assessment and Plan: No further emesis, but she is not very interested in her clear liquid diet tray. She does not like lemon popsicles. She has tried some broth and kept it down. Will advance diet when she is ready. 10/02/22 she feels much better and is tolerating a regular diet. Plan If she continues to feel good today, I think she can be discharged on oral antibiotics for 5 more days. I would have her call me to schedule an outpatient colonoscopy in a month or so Subjective Date/time seen: 10/02/22 09:59 She is feeling much better today. She had pancakes for breakfast and it did not cause any increase in pain. Her problems with her IV infiltrating. She therefore has been switched to oral antibiotics. She has not had any bowel movement since yesterday and only passed a scant bit of blood at that time. Exam Const: General: comfortable, no acute distress and alert Orientation/consciousness: patient oriented x3 HENMT: Face/Nose/Sinus: Normal nares present Eyes: General: appearance normal, both eyes and all related structures Neck: Neck: no JVD Resp: Auscultation: clear to auscultation bilaterally Cardio: Rate: regular rate Rhythm: regular rhythm GI: Inspection: non-distended GI Palp: Yes abdominal tenderness ( Left lower quadrant, but much better) and Yes No hepatosplenomegaly present Percussion: Yes normal to percussion Auscultation: normal bowel sounds Skin: General skin exam: normal color Neuro: General: patient oriented x3 Cranial nerves: Yes Normal hearing present Speech: normal speech and No Abnormal speech present Motor exam (neuro): 5/5 motor strength present throughout Extrem: General: normal to inspection Psych: Mental Status: mental status grossly normal Objective Data Vital Signs Vital Signs: Vital Signs - 24 hr 10/01/22 14:00 10/01/22 19:35 10/02/22 04:15 Temperature 37.1 C 36.3 C L 36.6 C Pulse Rate 67 67 67 Respiratory Rate 18 18 18 Blood Pressure 95/53 L 122/60 124/68 Pulse Oximetry 98 100 100 10/02/22 08:33 10/02/22 08:37 Temperature Pulse Rate 61 61 Respiratory Rate Blood Pressure 118/62 Pulse Oximetry 99 Intake/Output Intake/Output: Intake & Output 09/29/22 09/30/22 10/01/22 10/02/22 23:59 23:59 23:59 23:59 Intake Total 2200 4600 560 Balance 2200 4600 560 Meds/Results Medications: Active Medications Generic Name D
[2022-10-02 14:00] VITALS: BP 130/67; PULSE 74; RESP 20; TEMP 36.4; O2SAT 100
--- NOTE | 2022-10-02 14:24 | PM.DS ---
DS: Admitting Diagnosis Discharge Date 10/02/22 Admitting Diagnosis Rectal bleeding DS: Discharge Diagnosis Discharge Diagnosis (1) Colitis: Code(s): K52.9 - Noninfective gastroenteritis and colitis, unspecified Status: Acute (2) Bright red rectal bleeding: Code(s): K62.5 - Hemorrhage of anus and rectum Status: Acute (3) CAD (coronary artery disease): Code(s): I25.10 - Atherosclerotic heart disease of [place] coronary artery without angina pectoris Status: Acute (4) Hypertension: Code(s): I10 - Essential (primary) hypertension Status: Acute (5) Hyperlipidemia: Code(s): E78.5 - Hyperlipidemia, unspecified Status: Acute DS: Summary Hospital Course Reason for hospitalization: 62yo female with HTN and CAD here for BRBPR and found to have colitis. Please see H&P for details Hospital Course: Patient developed abdominal cramping and bright red blood per rectum prior to admission.? CT of the abdomen and pelvis showed thickening of the colon particularly sigmoid and descending colon with pericolonic stranding.? Findings are consistent with colitis.? Infectious versus ischemic colitis.? GI consulted. She was started on Zosyn on admission.? White count was elevated on admission but then normalized.? CDiff negative. Stool cultures pending. She had clinical improvement. Rectal bleeding stopped but still having diarrhea. As diet was advanced, her diarrhea slowed. She overall did well and was able to be discharged home on 10/02/22 Status at Discharge Cognitive/behavioral status at discharge: Stable Time Spent with Patient Time attestation: Total time spent providing and/or coordinating discharge services: 34 minutes Time spent: Greater than 30 minutes Exam Narrative: AF 97.6 130/67 74 20 100% ra Gen - NARD Chest - CTA bilaterally, nml RR CV - RRR S1/s2 Abd - soft, minimal left sided abd pain. No guarding or rebound. Ext - no pedal edema. Psych - normal mood and affect. Skin - warm and dry. DS: Data Data Completed and Pending Labs on day of discharge: Labs from last 24 hours 10/02/22 10/02/22 05:32 05:32 WBC 7.0 RBC 3.21 L Hgb 10.6 L Hct 31.4 L MCV 97.8 MCH 33.0 MCHC 33.8 RDW 12.5 Plt Count 262 MPV 9.4 Sodium 142 Potassium 3.4 Chloride 110 H Carbon Dioxide 22 Anion Gap 10 BUN 5 L Creatinine 0.50 L Estim Creat Clear Calc 78 Estimated GFR > 60 Glucose 96 Calcium 8.7 Discharge Plan Discharge Attending physician on discharge: Gregg Mckeon Consulting providers: Shantanu Kuhn Discharging Clinician: Gregg Mckeon Anticipated Discharge Date/Time: 10/02/22 14:29 Patient Disposition: Home, Self-Care Activity: as tolerated Diet: low fiber Discharge Instructions: Please complete your antibiotic course even if you are starting to feel well. Take precautions to avoid falls. Rise slowly from a lying or sitting position. Pause before standing or walking. Contact your doctor or call 911 and come to the Emergency Room if you have recurrent symptoms, fevers or other worrisome symptoms. Avoid NSAIDs (ibuprofen, naproxen, Aleve). Tylenol is safe to take. Follow-up with your primary care provider in 1-2 weeks. Please call for appointment. Follow-up with GI doctor in 3-4 weeks to schedule a colonoscopy. Please call to arrange. Thank you for using [facility] for your health care needs. Patient Instructions: Antibiotic Form Stand Alone Forms: General Discharge Information Follow-up/Referrals: Alfa Zuñiga MD [Physician] - Call for Appointment Drwe Cannon MD [Primary Care Provider] - Call for Appointment Discharge Medications: New metronidazole 250 mg Tablet 500 mg PO Q8HR Qty: 16 0RF levofloxacin 750 mg tablet 750 mg PO DAILY Qty: 5 0RF Continued metoprolol succinate 50 mg Tablet Extended Relea
[2022-10-02 15:04] VITALS: O2SAT 94
--- NOTE | 2022-10-05 09:21 | PC.NURSE ---
Stool cx is negative. Dr. Mckeon is aware.
== END 2022-10-02 15:07 | disposition home or self-care (01) ==
LOC: ANHED 08:27 → ANH2MED 11:53
PROVIDERS: Admitting Provider Internal Medicine; Emergency Provider General Practice; PCP Family Medicine; Visit Provider Internal Medicine
DX: K52.9 Noninfective gastroenteritis and colitis, unspecified (principal); D72.829 Elevated white blood cell count, unspecified; K62.5 Hemorrhage of anus and rectum; R11.2 Nausea with vomiting, unspecified; I25.10 Atherosclerotic heart disease of native coronary artery without angina pectoris; I10 Essential (primary) hypertension; E78.5 Hyperlipidemia, unspecified; K21.9 Gastro-esophageal reflux disease without esophagitis; Z85.72 Personal history of non-Hodgkin lymphomas; Z92.21 Personal history of antineoplastic chemotherapy; Z95.1 Presence of aortocoronary bypass graft; Z87.891 Personal history of nicotine dependence; Z79.82 Long term (current) use of aspirin
CPT/HCPCS: 36415; 74177; 80048; 80053; 83605; 83690; 85014; 85018; 85025; 85027; 85610; 85730; 86850; 86900; 86901; 87045; 87269; 87272; 87427; 87493; 87636; 96361; 96365; 96366; 96375; 96376; 99285; A9270; G0378; J0131; J2543; J7030; J7512; Q9967

== ENCOUNTER → 2022-12-07 12:19 | Outpatient (CLI) | payer OTHER, SELFPAY ==
--- NOTE | ~2022-12-07 | MM_ITS ---
EXAMINATION: MM screening ly BI w rox HISTORY: Screening TECHNIQUE: Craniocaudal and mediolateral oblique 3-D tomosynthesis images were obtained and synthetic 2-D images were generated. CAD analysis was submitted and interpreted. COMPARISON: Comparison to multiple prior studies sequentially, with oldest reviewed study dated 08/03. BREAST PARENCHYMAL COMPOSITION: Breast composed of scattered areas of fibroglandular density FINDINGS: There is no evidence of suspicious mass, calcification, or architectural distortion to sugg est malignancy in either breast. There has been no suspicious interval change. IMPRESSION: 1. No mammographic evidence of malignancy. 2. Recommend routine screening mammography in one year. BI-RADS Category 1: Negative Reviewed, dictated and finalized at location A. EX THREAD WINDER
--- NOTE | ~2022-12-07 | DEXA_ITS ---
Bone Density Report Name: Jagdeep Barr Age: 62 Sex: Female Ethnicity: White Date of : 1960 Indication: postmenopausal; screening for osteoporosis; height loss; hysterectomy; Referring Provider: ROWDY, LAURIE Study: Bone densitometry was performed. Exam Date: December 07, 2022 Accession number: [id number] Bone Density: Region BMD T-score Z-score Classification AP Spine (L1-L4) 0.987 -0.5 1.2 Normal Femoral Neck (Left) 0.682 -1.5 0.0 Osteopenia Total Hip (Left) 0.864 -0.6 0.5 Normal Femoral Neck (Right) 0.588 -2.3 -0.9 Osteopenia Total Hip (Right) 0.831 -0.9 0.3 Normal Total Hip Mean 0.848 -0.8 0.4 Normal World Health Organization criteria for BMD impression classify patients as: Normal (T-score at or above -1.0), Osteopenia (T-score between -1.0 and -2.5), or Osteoporosis (T-score at or below -2.5). 10-year Fracture Risk(1): Major Osteoporotic Fracture 11% Hip Fracture 2.0% Reported Risk Factors: [place] (), Neck BMD=0.588, BMI=23.6 (1) FRAX(R) Version 3.08. Fracture probability calculated for an untreated patient. Fracture probability may be lower if the patient has received treatment. Previous Exams: Region Exam Age BMD T-score BMD Change BMD Change Date g/cm2 vs Baseline vs Previous AP Spine(L1-L4) 12/07/2022 62 0.987 -0.5 0.130* 0.042* 09/16/2020 60 0.944 -0.9 0.087* 0.037* 09/12/2018 58 0.907 -1.3 0.051* 0.044* 11/18/2015 55 0.864 -1.7 0.007 0.007 10/16/2013 53 0.857 -1.7 Total Hip(Left) 12/07/2022 62 0.864 -0.6 -0.021 -0.001 09/16/2020 60 0.866 -0.6 -0.020 -0.007 09/12/2018 58 0.873 -0.6 -0.012 -0.020 11/18/2015 55 0.893 -0.4 0.007 0.007 10/16/2013 53 0.885 -0.5 Total Hip(Right) 12/07/2022 62 0.831 -0.9 -0.033* -0.035* 09/16/2020 60 0.866 -0.6 0.003 -0.035* 09/12/2018 58 0.901 -0.3 0.037* 0.003 11/18/2015 55 0.898 -0.4 0.034* 0.034* 10/16/2013 53 0.864 -0.6 *Denotes significance at 95% confidence level, LSC for AP Spine = 0.022 g/cm2, LSC for Total Hip = 0.027 g/cm2 Clinical Information Provided by Patient: Has used the following medications: Vitamin D, MTV Has the following medical conditions: Hysterectomy, HX OF LYMPHOMA IN 2004 WITH 6 MONTHS OF CHEMO Patient maximum he
== END ==
PROVIDERS: PCP Nurse Practitioner; Visit Provider Nurse Practitioner
DX: Z12.31 Encounter for screening mammogram for malignant neoplasm of breast (principal); Z78.0 Asymptomatic menopausal state; M85.852 Other specified disorders of bone density and structure, left thigh; M85.851 Other specified disorders of bone density and structure, right thigh
CPT/HCPCS: 77063; 77067; 77080

== ENCOUNTER → 2022-12-21 12:52 | Outpatient (CLI) | payer OTHER, SELFPAY ==
--- NOTE | ~2022-12-21 | US_ITS ---
EXAMINATION: US transvaginal DATE: 12/21/2022 13:14 INDICATION: Left lower quadrant pain Comparison:12/16/2020 TECHNIQUE: Multiple transabdominal and endovaginal sonographic images of the pelvis performed. FINDINGS: The uterus is surgically absent. The ovaries are not identified. There is no free fluid in the pelvis. There are no abnormal masses seen on either side. IMPRESSION: 1. Unremarkable pelvic ultrasound post hysterectomy. Reviewed, dictated and finalized at location A. GLOVE CLEANER
== END ==
PROVIDERS: PCP Family Medicine; Visit Provider Nurse Practitioner
DX: R10.2 Pelvic and perineal pain (principal); R19.09 Other intra-abdominal and pelvic swelling, mass and lump
CPT/HCPCS: 76830

== ENCOUNTER → 2023-12-11 10:48 | Outpatient (CLI) | payer OTHER, SELFPAY ==
--- NOTE | ~2023-12-11 | MM_ITS ---
EXAMINATION: MM screening [facility] BI w rox HISTORY: Screening mammogram TECHNIQUE: Craniocaudal and mediolateral oblique 3-D tomosynthesis images were obtained and synthetic 2-D images were generated. CAD analysis was submitted and interpreted. COMPARISON: 12/07/2022, 12/01/2021, 11/25/2020 BREAST PARENCHYMAL COMPOSITION: The breasts are heterogeneously dense, which may obscure small masses . FINDINGS: No suspicious mass, calcification, or architectural distortion are identified in either letty ast to suggest malignancy. There has been no suspicious interval change. IMPRESSION: 1. No mammographic evidence of malignancy. 2. Recommend routine screening mammography in one year. BI-RADS Category 1: Negative Reviewed, dictated and finalized at location A. RUMENT REPAIR TECHNICIAN
== END ==
PROVIDERS: PCP Nurse Practitioner; Visit Provider Nurse Practitioner
DX: Z12.31 Encounter for screening mammogram for malignant neoplasm of breast (principal)
CPT/HCPCS: 77063; 77067

== ENCOUNTER 2024-10-20 11:48 | Emergency (ER) | payer OTHER, SELFPAY ==
--- NOTE | ~2024-10-20 | CT_ITS ---
EXAMINATION: CT sinus wo con DATE: 10/20/2024 14:28 INDICATION: Congestion, pain, chronic sinusitis. TECHNIQUE: Computed tomography (CT) of the paranasal sinuses was performed without intravenous contra st. The dose-length product (DLP) was 319.20 mGy-cm. Iterative reconstruction was used. COMPARISON: None FINDINGS: There is normal development and pneumatization of the paranasal sinuses. The frontal, sphen oid, ethmoid, and maxillary sinuses are clear. The bilateral ostiomeatal complexes are patent. Visual ized soft tissues are unremarkable. IMPRESSION: Normal CT sinus findings. Reviewed, dictated and finalized at location [facility] IMPRESSION: Normal CT sinus findings.
--- NOTE | ~2024-10-20 | XR_ITS ---
Clinical Indication: Shortness of breath PA and lateral views of the chest: Comparison: 02/01/2018 Findings: The lungs are clear, without evidence of focal consolidation or pleural effusion. Cardiome diastinal silhouette is stable, status post interval median sternotomy. Bones and soft tissues are un remarkable. Impression: Clear lungs. Reviewed, dictated and finalized at location . [employer] Impression: Clear lungs.
[2024-10-20 11:54] VITALS: BP 126/66; PULSE 72; RESP 18; O2SAT 100
--- NOTE | 2024-10-20 11:54 | ECG_ITS ---
Test Date: 2024-10-20 11:56:42 Measurements Intervals [place] Rate: 71 P: 56 VT: 142 QRS: 61 QRSD: 88 T: 48 QT: 374 QTc: 409 Interpretive Statements SINUS RHYTHM MINIMAL ST DEPRESSION [0.025+ mV ST DEPRESSION] No previous ECG available for comparison Electronically Signed On 10-20-2024 21:53:59 MARKETING COMMUNICATION MANAGER by Dennis Christopher M.D.
[2024-10-20 12:27] VITALS: PULSE 71; O2SAT 98
[2024-10-20 12:46] LABS: Basophils Percent Auto 0.8 % (0.2-1.2); Eosinophils Absolute Auto 0.1 K/mm3 (0-0.3); Eosinophils Percent Auto 1.3 % (0-4.4); Hematocrit 39.6 % (37.0-47.0); Hemoglobin 13.5 g/dL (12.0-15.0); Immature Granulocyte Absolute 0.01 K/mm3 (0.00-0.031); Immature Granulocyte Percent A 0.2 % (0-0.5); Lymphocytes Absolute Auto 1.24 K/mm3 (0.9-3.2); Lymphocytes Percent Auto 23.6 % (18.3-44.2); Mean Corpuscular HGB Conc 34.1 g/dl (32-36); Mean Corpuscular Hemoglobin 32.9 pg (26-34); Mean Corpuscular Volume 96.6 fl (80-100); Mean Platelet Volume 9.6 fl (7.4-10.4); Monocytes Absolute Auto 0.7 K/mm3 (0.1-0.6); Monocytes Percent Auto 14.1 % (2.6-8.5); Neutrophils Absolute Auto 3.2 K/mm3 (1.3-6.7); Platelet Count Result 280 k/mm3 (150-375); Red Cell Distribution Width 12.5 % (11.5-14.5); White Blood Count 5.3 K/mm3 (4.5-10.0)
[2024-10-20 12:51] LABS: Alanine Aminotransferase 21 U/L (6-35); Albumin Level 4.4 g/dL (3.5-5.1); Alkaline Phosphatase 62 U/L (38-126); Anion Gap 3 mmol/L (4-12); Aspartate Amino Transferase 34 U/L (14-36); Bilirubin,Total 0.4 mg/dL (0.2-1.3); Blood Urea Nitrogen 22 mg/dL (7-17); Calcium 9.7 mg/dL (8.4-10.2); Carbon Dioxide 26 mmol/L (22-30); Chloride 111 mmol/L (98-107); Estimated CRCL calculation 56 ml/min; Estimated Glomerular Filt Rate > 60; Glucose 103 mg/dL (65-110); Potassium 4.4 mmol/L (3.4-5.0); Sodium 140 mmol/L (137-145)
--- NOTE | 2024-10-20 13:59 | ED_ITS ---
HPI - SOB/Dyspnea General Chief Complaint: Shortness of Breath/Dyspnea Stated Complaint: dyspnea with exertion Time Seen by Provider: 10/20/24 12:49 History of Present Illness HPI Narrative: 64-year-old female with a history of CAD, hypertension, hyperlipidemia presenting with nasal congestion. Patient states that she has been dealing with a dry cough for the last several months but this has finally resolved after her doctor changed 1 of her medications. States that now she is dealing with a lot of nasal congestion. States that she works out a lot and she feels short of breath at the beginning of her workouts due to the thick nasal congestion. States that the congestion thins out after she has been working out for a while and then she can breathe better. Denies chest pain, lightheadedness, leg swelling. No further complaints. Related Data Home Medications ?Medication ?Instructions ?Recorded ?Confirmed ?Last Taken ?Type aspirin 81 mg tablet,delayed 81 mg PO DAILY 01/13/20 09/30/22 01/14/20 History release (Aspir-) evolocumab 140 mg/mL subcutaneous See Rx Instructions .Route .COMPLEX 01/13/20 09/30/22 01/14/20 History pen injector (Yoanna Villatoro) isosorbide mononitrate 30 mg 30 mg PO DAILY 01/13/20 09/30/22 01/15/20 06:00 History tablet,extended release 24 hr metoprolol succinate 50 mg 50 mg PO DAILY 01/13/20 09/30/22 01/15/20 06:00 History tablet,extended release 24 hr vitamin D3 94.38 mcg (3,775 1 cap PO DAILY 01/13/20 09/30/22 01/14/20 History unit)-folic acid 1 mg capsule (Ortho DF) ascorbic acid (vitamin C) 500 mg PO DAILY 09/30/22 09/30/22 Unknown History co [id number] oil-omega 3-E 2,400 mg PO DAILY 09/30/22 09/30/22 Unknown History cyanocobalamin (vitamin B-12) 1,000 mg PO DAILY 09/30/22 09/30/22 Unknown History lisinopril 10 mg tablet 10 mg PO DAILY 09/30/22 09/30/22 Unknown History multivitamin with minerals-folic 1 tablet PO DAILY 11/25/22 11/25/22 Unknown History acid 0.4 mg tablet Allergies Allergy/AdvReac Type Severity Reaction Status Date / Time No Known Allergies Allergy Verified 01/15/20 09:54 Review of Systems 2 Review of Systems: All systems reviewed & are unremarkable except as noted in HPI and below [facility] Past Medical History Medical History Abdominal pain Leukocytosis Blood in stool Non-Hodgkin lymphoma in remission s/p chemotherapy tx in 2004 GERD (gastroesophageal reflux disease) Hyperlipidemia Hypertension CAD (coronary artery disease) Surgical History Surgical History S/P HATTIE (total abdominal hysterectomy) S/P CABG x 3 2017 Family History Family History Father Heart disease Mother Heart disease Sibling ALS (amyotrophic lateral sclerosis) Social History Social History Social History: lives at home with her . She quit tobacco in 1977 after smoking 1 pack per week 4 years. She drinks 2 alcoholic drinks per week. No drug use but used acid and marijuana when she was young. Full code. She nominates her to be the one who would make medical decisions for her if she is unable. Smoking packs per day: 1 Smoking cigarettes per day: 20.0 Years smoked: 4 Smoking pack-years: 4.00 Smoking status: Former smoker Tobacco type: cigarettes Alcohol intake: current Drinks per week: 2 Substance use: never Substance use type: does not use Lack of Transportation: No Lack of Food: Never True Current Housing: I Have Housing Concerned About Future Housing: No Difficulty Paying Gas/Electric Bills: No Difficulty Paying for Meds: No Currently Unemployed: No Education: High School Diploma/GED Difficulty w/ Childcare or Family Care: No Spiritual care concerns: No Exam 2 Narrative: GENERAL: Nontoxic, no acute distress, pleasant and cooperative HEAD: Normocephalic, atraumatic. EYES: PERRLA and EOMI. ENT: +nasal congestion NECK: Supple. CHEST: Clear to auscultation. No respiratory distress. HEART: Regular rate and rhythm ABDOMEN: Soft, nontender, nondistended EXTREMITIES: Normal range of motion SKIN: Warm, dry, no rash. NEURO: Alert and oriented x3. PSYCH: Normal mood and affect. Course Vital Signs Vital signs: Vital Signs Pulse Rate 72 10/20/24 11:54 Respiratory Rate 18 10/20/24 11:54 Blood Pressure 126/66 10/20/24 11:54 Pulse Oximetry 100 10/20/24 11:54 Oxygen Delivery Room Air 10/20/24 11:54 Pulse Rate 71 10/20/24 12:27 Respiratory Rate 18 10/20/24 11:54 Blood Pressure 126/66 10/20/24 11:54 Pulse Oximetry 98 10/20/24 12:27 Oxygen Delivery Room Air 10/20/24 12:27 MDM - SOB/Dyspnea MDM Narrative Medical decision making narrative: 64-year-old female presenting with several months of thick nasal congestion. Vitals within normal limits. Exam remarkable for the above. EKG per my interpretation shows normal sinus rhythm, no ST elevations or depressions. Blood work without acute abnormalities. Chest x-ray without acute abnormalities. Patient is negative for influenza, COVID, RSV. CT sinus shows no significant abnormalities. Will treat with Flonase. Recommend close PCP follow-up. Appropriate return precautions given. Discharged in stable condition. Differential Diagnosis Differential diagnosis: Likely acute exacerbation of chronic obstructive airways disease, community acquired pneumonia and other (Allergic rhinitis, nasal congestion) Medical Records Attestation: I reviewed the patient's medical records. Lab Data Attestation: I reviewed the patient's lab results. 10/20/24 12:35 10/20/24 12:35 Labs: Lab Results 10/20/24 10/20/24 Range/Units 12:35 14:16 WBC 5.3 (4.5-10.0) K/mm3 RBC 4.10 L (4.2-5.4) M/mm3 Hgb 13.5 (12.0-15.0) g/dL Hct 39.6 (37.0-47.0) % MCV 96.6 (80-100) fl MCH 32.9 (26-34) pg MCHC 34.1 (32-36) g/dl RDW 12.5 (11.5-14.5) % Plt Count 280 (150-375) k/mm3 MPV 9.6 (7.4-10.4) fl Immature Gran % (Auto) 0.2 (0-0.5) % Neut % (Auto) 60.0 (45.5-73.1) % Lymph % (Auto) 23.6 (18.3-44.2) % Garrard % (Auto) 14.1 H (2.6-8.5) % Eos % (Auto) 1.3 (0-4.4) % Baso % (Auto) 0.8 (0.2-1.2) % Lymph # (Auto) 1.24 (0.9-3.2) K/mm3 Garrard # (Auto) 0.7 H (0.1-0.6) K/mm3 Eos # (Auto) 0.1 (0-0.3) K/mm3 Baso # (Auto) 0.0 (0.0-0.1) K/mm3 Abs Immat Gran (auto) 0.01 (0.00-0.031) K/mm3 Absolute Neuts (auto) 3.2 (1.3-6.7) K/mm3 Absolute Nucleated RBC 0.000 (0.0-0.012) K/mm3 Nucleated RBC % 0.0 (0.0-0.2) % Sodium 140 (137-145) mmol/L Potassium 4.4 (3.4-5.0) mmol/L Chloride 111 H (98-107) mmol/L Carbon Dioxide 26 (22-30) mmol/L Anion Gap 3 L (4-12) mmol/L BUN 22 H D (7-17) mg/dL Creatinine 0.70 (0.7-1.0) mg/dL Estim Creat Clear Calc 56 ml/min Estimated GFR > 60 (59 - ) Glucose 103 (65-110) mg/dL Calcium 9.7 (8.4-10.2) mg/dL Total Bilirubin 0.4 (0.2-1.3) mg/dL AST 34 (14-36) U/L ALT 21 (6-35) U/L Alkaline Phosphatase 62 (38-126) U/L Total Protein 7.0 (6.3-8.2) g/dL Albumin 4.4 (3.5-5.1) g/dL Influenza A (RT-PCR) Negative (Negative) Influenza B (RT-PCR) Negative (Negative) RSV (RT-PCR) Negative (Negative) SARS-CoV-2 RNA (RT-PCR) Negative (Negative) Imaging Data Radiologist's impression: ITS Impressions Chest X-Ray 10/20/24 12:22 Impression: Clear lungs. Sinuses CT 10/20/24 14:59 IMPRESSION: Normal CT sinus findings. Critical Care Time Critical Care Time Critical Care Time: No Discharge Plan Discharge Clinical Impression: Dyspnea, Chronic nasal congestion Patient Disposition: Home, Self-Care Condition: Stable Instructions: Antibiotic Form, Rhinosinusitis (DC) Additional Instructions: We are treating you with a nasal spray for chronic nasal congestion. Please follow-up closely with your PCP. If your symptoms worsen or other concerning symptoms arise, please return to the ER. Patient Language: Ivorian Prescriptions: New Flonase Sensimist 27.5 mcg/actuation spray,suspension 2 spray intranasal DAILY Qty: 9.1 0RF Rx Instructions: into each nostril No Action metoprolol succinate 50 mg Tablet Extended Release 24 Hr 50 mg PO DAILY isosorbide mononitrate 30 mg Tablet Extended Release 24 Hr 30 mg PO DAILY aspirin [Aspir-81] 81 mg Tablet,Delayed Release (Dr/Ec) 81 mg PO DAILY Ortho DF 3,775 unit- 1 mg Capsule 1 cap PO DAILY Repatha SureClick 140 mg/mL pen injector See Rx Instructions .ROUTE .COMPLEX Rx Instructions: EVERY 2 WEEKS. Pt states she administered on 09/22/22. lisinopril 10 mg Tablet 10 mg PO DAILY multivit with min-folic acid 0.4 mg Tablet 1 tablet PO DAILY ascorbic acid (vitamin C) 500 mg PO DAILY co [id number] oil-omega 3-E 2,400 mg PO DAILY cyanocobalamin (vitamin B-12) 1,000 mg PO DAILY metronidazole 250 mg Tablet 500 mg PO Q8HR Qty: 16 0RF levofloxacin 750 mg tablet 750 mg PO DAILY Qty: 5 0RF Follow-up/Referrals: Drew Cannon MD [Primary Care Provider] -
[2024-10-20 14:57] LABS: Influenza A QL RT-PCR Negative (Negative); Influenza B QL RT-PCR Negative (Negative); RSV RNA, RT-PCR Negative (Negative); SARS-CoV-2 RNA PCR Negative (Negative)
[2024-10-20 16:00] VITALS: BP 110/78; PULSE 79; RESP 17; O2SAT 98
[2024-10-20 17:13] VITALS: BP 108/56; PULSE 73; RESP 20; TEMP 36.7; O2SAT 99
--- OUTSIDE RECORDS SUMMARY | 2024-10-25 03:07 | XMS_ITS | Data Portability ---
Author Organization [facility] OFFICE Address [address] [place] [address] Care Team Providers Care Cleaner Name Role Phone AMBER MAC Primary Care Provider [phone] Assessment Encounter Date Assessment Date Assessment LastModified by Organization Details LastModified Time 08/25/2021 08/25/2021 Discussed with patient findings, diagnosis, and prognosis. Discussed evaluation and treatment options including risks and benefits with patient, and patient expressed understanding. The following interventions were recommended: heart healthy low-fat, low-sodium diet, continue regular exercise, maintain appropriate weight, continue current medications, and medical follow-up as noted. [email or web address] Not available 08/12/2021 15:59:53 11/03/2021 11/03/2021 Discussed with patient findings, diagnosis, and prognosis. Discussed evaluation and treatment options including risks and benefits with patient, and patient expressed understanding. The following interventions were recommended: heart healthy low-fat, low-sodium diet, continue regular exercise, maintain appropriate weight, continue current medications, and medical follow-up as noted. [email or web address] Not available 11/03/2021 10:53:22 03/02/2022 03/02/2022 Discussed with patient findings, diagnosis, and prognosis. Discussed evaluation and treatment options including risks and benefits with patient, and patient expressed understanding. The following interventions were recommended: heart healthy low-fat, low-sodium diet, continue regular exercise, maintain appropriate weight, continue current medications, and medical follow-up as noted. [email or web address] Not available 03/02/2022 12:02:09 06/15/2022 06/15/2022 Discussed with patient findings, diagnosis, and prognosis. Discussed evaluation and treatment options including risks and benefits with patient, and patient expressed understanding. The following interventions were recommended: heart healthy low-fat, low-sodium diet, continue regular exercise, maintain appropriate weight, continue current medications, and medical follow-up as noted. [email or web address] Not available 06/15/2022 12:40:38 12/14/2022 12/14/2022 Discussed with patient findings, diagnosis, and prognosis. Discussed evaluation and treatment options including risks and benefits with patient, and patient expressed understanding. The following interventions were recommended: heart healthy low-fat, low-sodium diet, continue regular exercise, maintain appropriate weight, continue current medications, and medical follow-up as noted. [email or web address] Not available 12/14/2022 13:43:31 Plan of Treatment Reminders Order Date Submit Date Provider Last Modified By Organization Details Last Modified Time Details Appointments None recorded. Lab None recorded. Referral None recorded. Procedures None recorded. Surgeries None recorded. Imaging None recorded. Medication Orders Zetia 10 mg tablet 2020 021 [email or web address] [facility] [id number], [address], 12:19:54 icosapent ethyl 1 gram capsule 2021 022 [facility] [address], [address], 12:40:31 lisinopril 10 mg tablet 2021 022 CLIO [facility] [address], [address], 12:50:09 Patient TargetsNo targets recorded. Patient Instructions Encounter Date Encounter Id Patient Instructions Last Modified By Organization Details Last Modified Time 08/25/2021 [id number] elevated blood pressure: care instructions [email or web address] Not available 08/25/2021 12:53:24 high cholesterol : care instructions [email or web address] Not available 08/25/2021 12:53:24 low sodium diet (2,000 milligram): care instructions [email or web address] Not available 08/25/2021 12:53:24 11/03/2021 [id number] elevated blood pressure: care instructions [email or web address] Not available 11/03/2021 13:06:00 high cholesterol : care instructions [email or web address] Not available 11/03/2021 13:06:00 low sodium diet (2,000 milligram): care instructions [email or web address] Not available 11/03/2021 13:06:00 03/02/2022 [id number] elevated blood pressure: care instructions Not available 03/02/2022 12:27:40 high cholesterol : care instructions [email or web address] Not available 03/02/2022 12:27:40 low sodium diet (2,000 milligram): care instructions [email or web address] Not available 03/02/2022 12:27:40 06/15/2022 [id number] elevated blood pressure: care instructions [email or web address] Not available 06/15/2022 12:50:07 high cholesterol : care instructions [email or web address] Not available 06/15/2022 12:50:07 low sodium diet (2,000 milligram): care instructions [email or web address] Not available 06/15/2022 12:50:07 12/14/2022 [id number] elevated blood pressure: care instructions [email or web address] Not available 12/14/2022 13:47:20 high cholesterol : care instructions [email or web address] Not available 12/14/2022 13:47:20 low sodium diet (2,000 milligram): care instructions [email or web address] Not available 12/14/2022 13:47:20 Reason for Referral None Reported. Results Created Date Observation Date Name Description Value Unit Range Abnormal Flag Note LastModifiedBy Organization Detail LastModifiedTime 08/09/2008/09/2021 , echoc ardio gram No observ ation record ed. [facility] [address], [place], [address], 09/06/2021 16:40:07 08/26/2008/09/2021 , echoc ardio gram No observ ation record ed. [email or web address] Not Available 2020 18:32:47 09/01/2008/09/2021 , echoc ardio gram No observ ation record ed. Not Available 2020 12:55:36 11/04/20 21 11/03/2021 elect sarika diogr am No observ ation record ed. Not Available 2020 12:44:35 06/02/20 22 05/24/2022 exerc nathan thomas s test No observ ation record ed. Not Available 2021 10:00:34 02/22/20 23 01/10/2023 US, carot id arter y No observ ation record ed. Not Available 2022 10:07:33 Result Notes Documentation Provider Name and Address Organization Details Recorded Time Cmp, Serum Or Plasma : 05/25/22:Na 142,K 4.1,CL 106,CO2 22,GLU 104,BUN 19,Cr 0.62. 05/25/22:WBC 3.9,RBC 4.16,HB 13.2,HCT 39.0,PLT 306. Radha mooney [place] - [facility] 06/01/2022 17:38:15 Problems Name Problem SNOMED Code Status Onset Date Resolution Date Notes Provider Name and Address Organization Details Recorded Time Tricuspid valve regurgitat ion 054665158 Active 2020 Ayaan mooney [place] - [facility] 1 16:49:13 Dyspnea on exertion 76048922 Active 2021 Ayaan mooney [place] - [facility] 2 12:09:22 Coronary arterioscl erosis 48375762 Active 2017 s/p Had CABG x 3 done in ([place] to anterior desending coronary artery, left radial artery to obtuse marginal coronary artery, reverse saphenous vein graft to second diagonal coronary artery. Radha mooney [place] - [facility] 8 17:29:49 Hyperlipid emia 61138930 Active 2017 Keena mooney [place] - [facility] 8 03:34:50 Gastroesop hageal reflux disease 647326657 Active 2017 Keena mooney [place] - [facility] 8 03:34:57 Arthritis 9399154 Active 2017 DONALD [place] - [facility] 8 03:35:18 High troponin I level 644549990 Active 2017 Keena mo[place], [place] - [facility] 8 03:36:26 Migraine 66839280 Active 2017 Radha Singhdell [place], [place] - [facility] 8 17:15:42 Osteoarthr itis 220424100 Active 2017 Radha [place] - [facility] 8 17:16:08 Malignant neoplastic disease 283492545 Active 2017 Darianadorie Lebron [facility], [place] - [facility] 8 13:41:51 Cramp in lower limb 978411711 Active 2017 Dariana Lebron [facility], [place] - [facility] 8 13:42:01 Tight chest 81936152 Active 2017 Dariana Lebron [place], [place] - [facility] 8 13:42:11 Increased blood pressure 43836024 Active 2017 Ayaan [place] - [facility] 8 14:14:34 On examinatio n - carotid bruit Active 2017 Ayaan Wiggins [facility] 8 12:25:38 Peripheral arterial occlusive disease 130403253 [facility] 8 12:59:59 Acute non-ST segment elevation myocardial infarction 370735048 Active 2017 Garcia Samanthadell [facility] 8 13:00:32 Problem Notes None recorded. Procedures Surgical History Date Name Laterality Status Provider Name and Address Organization Details Recorded Time Cabg vein three completed Garcia Samanthadell [facility] 03/12/2018 17:28:10 Imaging Results Imaging Date Name Status LastModified by Organization Details LastModified Time 08/09/2021 US, echocardiogram completed [facility] [address], [place], [address], 09/06/2021 16:40:07 08/09/2021 US, echocardiogram completed [email or web address] Inform ation not available 08/26/2021 18:32:47 08/09/2021 US, echocardiogram completed Inform ation not available 09/01/2021 12:55:36 11/03/2021 electrocardiogram completed Informa tion not available 11/04/2021 12:44:35 05/24/2022 exercise stress test completed Info rmation not available 06/02/2022 10:00:34 01/10/2023 US, carotid artery completed Inform ation not available 02/21/2023 10:07:33 Procedure Notes None recorded. Medical Equipment None Reported. Allergies No known drug allergies Medications Name Sig Start Date Stop Date Status Note LastModified by Organization Details LastModified Time Prescripti on - Prior Authorizat ion Request 05/27 completed Not Available Not Available Not Available atorvastat in 40 mg tablet Take 1 tablet every day by oral route at bedtime. 04/18 completed Not Available Not Available Not Available metoprolol succinate ER 50 mg tablet,ext ended release 24 hr TAKE 1 TABLET BY MOUTH EVERY DAY active Not Available Not Available No t Available hydrocodon e 5 mg-acetami nophen 325 mg tablet Take 1 tablet every day by oral route as needed. 12/24 completed As needed 9 : [place] Not Available Not Available Not Available meloxicam 15 mg tablet Take 1 tablet every day by oral route. 06/15 completed Not Available Not Available Not Available metronidaz ole 0.75 % (37.5 mg/5 gram) vaginal gel VAGINAL INSERT 1 APPLICAT OR FULL PER VAGINA AT BEDTIME FOR 5 DAYS 11/18 completed pt not taking 11/18/20 Not Available Not Available Not Available ondansetro n HCl 4 mg tablet Take 1 tablet every 4 hours by oral route as needed. 05/16 completed NOT ON MED LIST Not Available Not Available Not Available famotidine 40 mg tablet TAKE 1 TABLET BY MOUTH EVERY DAY IN THE EVENING active Not Available Not Available No t Available isosorbide mononitrat e ER 30 mg tablet,ext ended release 24 hr TAKE 1 TABLET BY MOUTH DAILY 2022 active Not Available Not Available Not Avai lable terconazol e 0.8 % vaginal cream VAGINAL INSERT 1 APPLICAT OR FULL PER VAGINA AT BEDTIME FOR 3 DAYS 11/18 completed pt not taking 11/18/20 Not Available Not Available Not Available metronidaz ole 250 mg tablet TAKE 2 TABLETS BY MOUTH EVERY 8 HOURS active Not Available Not Available No t Available tramadol 50 mg tablet TAKE 1 TABLET BY MOUTH TWICE A DAY active Not Available Not Available No t Available pantoprazo le 40 mg tablet,del ayed release TAKE 1 TABLET BY MOUTH EVERY MORNING PRIOR TO BREAKFAS T. TAKE THE FAMOTIDI NE 40MG IN THE EVENING active Not Available Not Available No t Available clotrimazo le-betamet hasone 1 %-0.05 % topical cream APPLY TO AFFECTED AREA TWICE DAILY FOR 2 WEEKS active Not Available Not Available No t Available lisinopril 10 mg tablet TAKE 1 TABLET BY MOUTH EVERY DAY active Not Available Not Available No t Available isosorbide dinitrate 40 mg tablet Take 1 tablet every day by oral route as directed . 04/18 completed Not Available Not Available Not Available metoprolol tartrate 50 mg tablet Take 0.5 tablets twice a day by oral route. 04/18 completed Not Available Not Available Not Available nitroglyce rin 0.[address] 1 tablet as needed by sublingu al route. 12/24 completed NEEDED 9: MA Not Available Not Available Not Available aspirin 81 mg chewable tablet Chew 1 tablet every day by oral route. active Not Available Not Available No t Available raloxifene 60 mg tablet Take 1 tablet every day by oral route as directed . 03/06 completed No longer take it 9 : MA Not Available Not Available Not Available levofloxac in 750 mg tablet TAKE 1 TABLET BY MOUTH DAILY FOR 5 DAYS active Not Available Not Available No t Available Vitamin C 500 mg capsule,ex tended release Take 1 capsule every day by oral route as directed . 12/24 completed pt. no longer takes 11/27/19 20 FH Not Available Not Available Not Available voriconazo le 200 mg tablet TAKE 1 TABLET BY MOUTH TWICE A DAY active Not Available Not Available No t Available ezetimibe 10 mg tablet Take 1 tablet every day by oral route. 03/02 completed Not Available Not Available Not Available rosuvastat in 10 mg tablet Take 1 tablet every day by oral route at bedtime. active Not Available Not Available No t Available rosuvastat in 20 mg tablet Take 1 tablet every day by oral route at bedtime. 09/05 completed Not Available Not Available Not Available omeprazole 1 TAB QD 40 mg 12/24 completed No longer take it 9 : MA Not Available Not Available Not Available naproxen 1 tab bid 12/24 completed No longer take it 9 : MA Not Available Not Available Not Available Vitamin D 1qd active Not Available Not Rahel ilable Not Available Livalo 4 mg tablet Take 1 tablet every day by oral route at bedtime. 06/20 completed Not Available Not Available Not Available Livalo 2 mg tablet Take 1 tablet every day by oral route at bedtime. 05/16 completed Not Available Not Available Not Available icosapent ethyl 1 gram capsule Take 2 capsules twice a day by oral route. active Not Available Not Available No t Available Multi Vitamin 1 tab qd 12/24 completed No longer take it 9 : MA Not Available Not Available Not Available Nuvessa 1.3 % (65 mg/5 gram) vaginal gel INSERT 1 APPLICAT OR FULL IN VAGINA AT BEDTIME active Not Available Not Available No t Available Vitamin B12 1000mg 1 tab qd active Not Available Not Available No t Available Repatha SureClick 140 mg/mL subcutaneo us pen injector INJECT 1 ML (140 MG TOTAL) UNDER THE SKIN EVERY 14 DAYS. 2022 active Not Available Not Available Not Avai lable Xyzbac 1 mg-5 mg-50 mg tablet TAKE 1 TWO TIMES DAILY 05/27 completed Not Available Not Available Not Available Fish Oil 1,000 mg (120 mg-180 mg) capsule Take 2 capsules twice a day by oral route. active Not Available Not Available No t Available Ortho DF 94.38 mcg (3,775 unit)-1 mg capsule TAKE 1-2 TABLETS BY MOUTH ONCE DAILY. 05/27 completed Not Available Not Available Not Available Provad 30 billion cell capsule TAKE 1-2 CAPSULES 2 TIMES DAILY 12/24 completed pt. no longer takes 11/27/19 20 FH Not Available Not Available Not Available Provad 12/24 completed pt. no longer takes 11/27/19 20 FH Not Available Not Available Not Available Vitals Date Recorded Body height Body mass index (BMI) Body weight Heart rate Oxygen saturation Oxygen saturation in Arterial blood by Pulse oximetry Systolic blood pressure Diastolic blood pressure Provider Name and Address Organization Details Last Updated DateTime 1 160.02 cm 22.7 kg/m2 95338.8 2 g 67 /min 98 % 98 % 118 mm[Hg] 70 mm[Hg] Bety [facility] 1 12:02:33 Date Recorded Body height Body mass index (BMI) Body weight Heart rate Oxygen saturation Oxygen saturation in Arterial blood by Pulse oximetry Systolic blood pressure Diastolic blood pressure Provider Name and Address Organization Details Last Updated DateTime 1 160.02 cm 23.6 kg/m2 40180.7 9 g 78 /min 97 % 97 % 109 mm[Hg] 71 mm[Hg] Bety Barrientos [facility] 1 12:01:57 Date Recorded Body height Body mass index (BMI) Body weight Heart rate Oxygen saturation Oxygen saturation in Arterial blood by Pulse oximetry Systolic blood pressure Diastolic blood pressure Provider Name and Address Organization Details Last Updated DateTime 2 160.02 cm 22 kg/m2 75628.4 5 g 71 /min 98 % 98 % 110 mm[Hg] 72 mm[Hg] Julio César Butts [facility] 2 11:51:39 Date Recorded Body height Body mass index (BMI) Body weight Heart rate Respiratory rate Oxygen saturation Oxygen saturation in Arterial blood by Pulse oximetry Systolic blood pressure Diastolic blood pressure Provider Name and Address Organization Details Last Updated DateTime 2 160.02 cm 21.4 kg/m2 37546.6 8 g 78 /min 16 /min 93 % 93 % 116 mm[Hg] 68 mm[Hg] Julio César Butts [facility] 2 11:54:31 Date Recorded Body height Provider Name an d Address Organization Details Last Updated DateTime 12/14/2022 160.02 cm Julio César Butts [facility] 12/14/2022 12:47:59 Date Recorded Heart rate Oxygen saturation Oxygen saturation in Arterial blood by Pulse oximetry Body mass index (BMI) Body weight Systolic blood pressure Diastolic blood pressure Provider Name and Address Organization Details Last Updated DateTime 3 71 /min 94 % 94 % 22.1 kg/m2 07755.0 5 g 116 mm[Hg] 78 mm[Hg] Ayaan Wiggins [facility] 3 13:41:02 Social History Question Answer Notes LastModified by Ariisto Details LastModified Time Tobacco Smoking Status Former Smoker Not Available [facility] 09/08/2020 03:30:40 What Is Your Level Of Alcohol Consumption? Occasional [id number] Information not available 09/08/2020 What Is Your Level Of Caffeine Consumption? None [id number] Information not available 09/08/2020 How Much Tobacco Do You Chew? None [id number] Information not available 09/08/2020 What Type Of Diet Are You Following? REGULAR [id number] Information not available 09/08/2020 Which Illicit Or Recreational Drugs Have You Used? No [id number] Information not available 09/08/2020 Do You Or Have You Ever Used E-cigarettes Or Vape? Never Used Electronic Cigarettes [id number] Information not available 09/08/2020 Live Alone Or With Others? With Others [email or web address] Information not available 03/14/2018 Marital Status [email or web address] Informatio n not available 03/14/2018 What Was The Date Of Your Most Recent Tobacco Screening? 03/06/2019 [id number] Information not available 09/08/2020 How Many Children Do You Have? 2 [id number] Information not available 09/08/2020 Do You Or Have You Ever Used Smokeless Tobacco? Former Smokeless Tobacco User [id number] Information not available 09/08/2020 How Much Tobacco Do You Smoke? No [id number] Information not available 09/08/2020 General Stress Level Low [email or web address] Information not available 03/14/2018 How Many Years Have You Smoked Tobacco? 6 Quit 1977 [id number] Information not available 09/08/2020 Sex: Unknown Functional Status Question Answer Note LastModified by Ariisto Details LastModified Time What is your exercise level? Occasional [id number] Information not available 09/08/2020 Mental Status None recorded. Family History Relationship Description Onset Age of this Age Resolved Age Notes LastModified by Organization Details LastModified Time Sister Coronary artery bypass graft [email or web address] Not available 05/2018 17:15:10 Sister Coronary arterioscler osis deceas ed [place] Not available 03/12/2018 17:17:20 Sister Amyotrophic lateral sclerosis [email or web address] Not available 2017 17:16:34 Mother Myocardial infarction 59 deceas ed hm[place] Not available 03/12/2018 17:17:48 Mother Congestive heart failure deceas ed hmesto Not available 03/12/2018 17:18:28 Mother Diabetes mellitus deceas ed hm[place] Not available 03/12/2018 17:18:51 Mother Heart disease [email or web address] Not available 2017 13:37:34 Father Cerebrovascu lar accident deceas ed hmesto Not available 03/12/2018 17:18:01 Maternal Grandmother Heart disease [email or web address] Not available 2017 13:37:34 Maternal Aunt Hypertensive disorder [email or web address] Not available 2017 13:37:59 Medical History Condition Response Coronary Artery Disease Y Hyperlipidemia Y Cancer Y GERD/Reflux Y Gynecological HistoryNo gynecological history recorded. Obstetrics History GPAL:G 0 P 0 0 0 0 Past Encounters Encounter ID Performer Location Encounter Start Date Encounter Closed Date Diagnosis/Indication Diagnosis SNOMED-CT Code Diagnosis ICD10 Code [id number] Ayaan [facility] OFFICE [facility] [place] [address] 03/14/2018 12:39:12 03/14/2018 15:44:06 Coronary arteriosclerosis 63947345 I25.10 Hyperlipidemia 88734556 E78.5 Acute non- ST segment elevation myocardial infarction 758464308 I21.4 Increased blood pressure 03062162 R03.0 [id number] Marc Pabon MD [place] OFFICE [address] [place] [address] 04/03/2018 13:48:49 04/04/2018 11:06:13 Coronary arteriosclerosis 24415233 I25.10 Hyperlipidemia 82211303 E78.5 Acute non- ST segment elevation myocardial infarction 410676591 I21.4 Increased blood pressure 29661692 R03.0 Peripheral arterial occlusive disease 150287177 I73.9 [id number] Ayaan Duvallhman [place] OFFICE [address] [place] [address] 04/18/2018 11:05:26 04/19/2018 11:39:30 Edema 230505807 R60.9 Coronary arteriosclerosis 50971403 I25.10 Hyperlipidemia 08481886 E78.5 Acute non- ST segment elevation myocardial infarction 151979631 I21.4 Increased blood pressure 56907612 R03.0 Peripheral arterial occlusive disease 215223639 I73.9 Cramp in lower limb 4499 25378 R25.2 On examina tion - carotid bruit 368922658 R09.89 [id number] [facility] OFFICE [address] [place] [address] 05/16/2018 14:00:36 05/18/2018 10:46:30 Coronary arteriosclerosis 08824581 I25.10 Hyperlipidemia 46941080 E78.5 Increased blood pressure 05604991 R03.0 Cramp in lower limb 4499 64020 R25.2 Edema 723593065 R60.9 Acute non- ST segment elevation myocardial infarction 421700401 I21.4 Peripheral arterial occlusive disease 866883880 I73.9 On examina tion - carotid bruit 667609638 R09.89 [id number] [facility] OFFICE [address] [place] [address] 06/20/2018 12:18:32 11/09/2018 10:31:48 Coronary arteriosclerosis 84446678 I25.10 Hyperlipidemia 97758962 E78.5 Increased blood pressure 75094578 R03.0 Cramp in lower limb 4499 96179 R25.2 Edema 260796994 R60.9 Acute non- ST segment elevation myocardial infarction 519449804 I21.4 Peripheral arterial occlusive disease 270748155 I73.9 On examina tion - carotid bruit 309497480 R09.89 [id number] [facility] OFFICE [address] [place] [address] 08/01/2018 12:05:46 08/01/2018 13:59:36 Coronary arteriosclerosis 02207075 I25.10 Hyperlipidemia 37986901 E78.5 Increased blood pressure 07892344 R03.0 Cramp in lower limb 4499 16430 R25.2 Edema 262934367 R60.9 Acute non- ST segment elevation myocardial infarction 020125153 I21.4 Peripheral arterial occlusive disease 768516536 I73.9 On examina tion - carotid bruit 782280425 R09.89 [id number] [facility] OFFICE [address] [place] [address] 09/05/2018 11:58:44 09/05/2018 13:15:17 Coronary arteriosclerosis 71351399 I25.10 Hyperlipidemia 94768127 E78.5 Increased blood pressure 90082965 R03.0 Cramp in lower limb 4499 02841 R25.2 Edema 537757502 R60.9 Acute non- ST segment elevation myocardial infarction 495479306 I21.4 Peripheral arterial occlusive disease 157886899 I73.9 On examina tion - carotid bruit 333007530 R09.89 [id number] [facility] OFFICE [address] [place] [address] 10/24/2018 14:15:50 11/02/2018 13:02:39 Coronary arteriosclerosis 80855470 I25.10 Hyperlipidemia 29771094 E78.5 Increased blood pressure 06003284 R03.0 Cramp in lower limb 4499 40472 R25.2 Edema 840543084 R60.9 Acute non- ST segment elevation myocardial infarction 749645190 I21.4 Peripheral arterial occlusive disease 794601761 I73.9 On examina tion - carotid bruit 712844522 R09.89 [id number] [facility] [address] [place] [address] 01/21/2019 15:45:03 01/21/2019 17:49:00 Coronary arteriosclerosis 55040137 I25.10 Hyperlipidemia 99355364 E78.5 Increased blood pressure 75814841 R03.0 Cramp in lower limb 4499 37474 R25.2 Edema 340114706 R60.9 Acute non- ST segment elevation myocardial infarction 204990425 I21.4 Peripheral arterial occlusive disease 737981939 I73.9 On examina tion - carotid bruit 373291982 R09.89 [id number] [facility] OFFICE [address] [place] [address] 03/06/2019 10:44:08 03/06/2019 11:51:17 Coronary arteriosclerosis 94136677 I25.10 Hyperlipidemia 23415436 E78.5 Increased blood pressure 20227717 R03.0 Cramp in lower limb 4499 57281 R25.2 Edema 344971013 R60.9 Acute non- ST segment elevation myocardial infarction 673466234 I21.4 Peripheral arterial occlusive disease 072636045 I73.9 On examina tion - carotid bruit [id number] R09.89 [id number] [facility] OFFICE [address] [place] [address] 05/22/2019 11:35:56 05/22/2019 13:42:34 Coronary arteriosclerosis [id number] I25.10 Hyperlipidemia 15696322 E78.5 Increased blood pressure 87096713 R03.0 Cramp in lower limb 4499 97948 R25.2 Edema 540938262 R60.9 Acute non- ST segment elevation myocardial infarction 109398558 I21.4 Peripheral arterial occlusive disease 947658292 I73.9 On examina tion - carotid bruit 959120742 R09.89 09148 [facility] OFFICE [address] [place] [address] 11/27/2019 10:15:55 11/27/2019 11:28:22 Coronary arteriosclerosis 23457527 I25.10 Hyperlipidemia 50095149 E78.5 Increased blood pressure 70235932 R03.0 Cramp in lower limb 4499 79017 R25.2 Edema 501190755 R60.9 Acute non- ST segment elevation myocardial infarction 950020216 I21.4 Peripheral arterial occlusive disease 442180940 I73.9 On examina tion - carotid bruit 638011177 R09.89 [id number] [facility] OFFICE [address] [place] [address] 02/26/2020 12:12:45 02/26/2020 14:50:50 Coronary arteriosclerosis 04093500 I25.10 Hyperlipidemia 39098129 E78.5 Increased blood pressure 57216856 R03.0 Cramp in lower limb 4499 19276 R25.2 Edema 207343504 R60.9 Acute non- ST segment elevation myocardial infarction 673459692 I21.4 Peripheral arterial occlusive disease 848989366 I73.9 On examina tion - carotid bruit 955473523 R09.89 95639 [facility] OFFICE [address] [place] [address] 05/27/2020 11:34:54 05/27/2020 12:21:35 Coronary arteriosclerosis 87903417 I25.10 Hyperlipidemia 73858064 E78.5 Increased blood pressure 45571047 R03.0 Cramp in lower limb 4499 71180 R25.2 Edema 872314137 R60.9 Acute non- ST segment elevation myocardial infarction 266964457 I21.4 Peripheral arterial occlusive disease 112030462 I73.9 On examina tion - carotid bruit 635592373 R09.89 30375 [facility] OFFICE [address] [place] [address] 11/18/2020 11:19:45 11/18/2020 12:59:55 Coronary arteriosclerosis 28670075 I25.10 Hyperlipidemia 48685501 E78.5 Increased blood pressure 33556691 R03.0 Cramp in lower limb 4499 41907 R25.2 Edema 224920921 R60.9 Acute non- ST segment elevation myocardial infarction 142200725 I21.4 Peripheral arterial occlusive disease 203173829 I73.9 On examina tion - carotid bruit 332589831 R09.89 61622 [facility] OFFICE [address] [place] [address] 06/16/2021 15:24:25 06/16/2021 17:02:40 Coronary arteriosclerosis 59240274 I25.10 Hyperlipidemia 00868426 E78.5 Increased blood pressure 50356776 R03.0 Cramp in lower limb 4499 56738 R25.2 Edema 263739131 R60.9 Acute non- ST segment elevation myocardial infarction 673719188 I21.4 Peripheral arterial occlusive disease 201085786 I73.9 On examina tion - carotid bruit 902558043 R09.89 Tricuspid valve regurgitation 912155878 I07.1 59675 [facility] OFFICE [address] [place] [address] 08/25/2021 11:52:14 08/25/2021 12:55:54 Coronary arteriosclerosis 19287348 I25.10 Hyperlipidemia 62978648 E78.5 Increased blood pressure 58135450 R03.0 Cramp in lower limb 4499 71486 R25.2 Edema 995518631 R60.9 Acute non- ST segment elevation myocardial infarction 920854676 I21.4 Peripheral arterial occlusive disease 094382832 I73.9 On examina tion - carotid bruit 846175184 R09.89 Tricuspid valve regurgitation 710039662 I07.1 50065 [facility] OFFICE [address] [place] [address] 11/03/2021 11:35:50 11/03/2021 13:15:13 Coronary arteriosclerosis 84183284 I25.10 Hyperlipidemia 10441098 E78.5 Increased blood pressure 02073912 R03.0 Cramp in lower limb 4499 33386 R25.2 Edema 270961427 R60.9 Acute non- ST segment elevation myocardial infarction 885493597 I21.4 Peripheral arterial occlusive disease 231295740 I73.9 On examina tion - carotid bruit 582967934 R09.89 Tricuspid valve regurgitation 096771920 I07.1 44364 [facility] OFFICE [address] [place] [address] 03/02/2022 11:41:31 03/02/2022 12:32:31 Coronary arteriosclerosis 03321566 I25.10 Hyperlipidemia 56415811 E78.5 Increased blood pressure 79266062 R03.0 Cramp in lower limb 4499 98826 R25.2 Edema 067552187 R60.9 Acute non- ST segment elevation myocardial infarction 201008723 I21.4 Peripheral arterial occlusive disease 451019193 I73.9 On examina tion - carotid bruit 268797910 R09.89 Tricuspid valve regurgitation 205786199 I07.1 Dyspnea on exertion 6084 5006 R06.09 13842 [facility] OFFICE [address] [place] [address] 06/15/2022 11:49:53 06/15/2022 12:52:40 Coronary arteriosclerosis 34483892 I25.10 Hyperlipidemia 89517086 E78.5 Increased blood pressure 53950435 R03.0 Cramp in lower limb 4499 54378 R25.2 Edema 306400201 R60.9 Acute non- ST segment elevation myocardial infarction 140156144 I21.4 Peripheral arterial occlusive disease 330054336 I73.9 On examina tion - carotid bruit 546797713 R09.89 Tricuspid valve regurgitation 774701213 I07.1 Dyspnea on exertion 6084 5006 R06.09 31613 [facility] [address] [place] [address] 12/14/2022 11:53:49 12/14/2022 13:52:46 Coronary arteriosclerosis 35887161 I25.10 Hyperlipidemia 92356453 E78.5 Increased blood pressure 83173207 R03.0 Cramp in lower limb 4499 36838 R25.2 Edema 341689986 R60.9 Acute non- ST segment elevation myocardial infarction 406538843 I21.4 Peripheral arterial occlusive disease 751225339 I73.9 On examina tion - carotid bruit 177378045 R09.89 Tricuspid valve regurgitation 878721421 I07.1 Dyspnea on exertion 6084 5006 R06.09 Health Concerns Section Related Observation LastModified by Organization Detai ls LastModified Time None Recorded Concern Status LastModified by Organization Details LastModified Time None Recorded Advance Directives Directive None Recorded Payers Encounter Date Sequence Insurance Name Policy Number Policy Will Covered Member ID Will Member ID Guarantor Name 08/25/2021 1 [employer] [id number] Jadgeep Barr [id number] Jagdeep Barr 11/03/2021 1 [employer] [id number] Jagdeep Barr [id number] Jagdeep Barr 03/02/2022 1 [employer] [id number] Jagdeep Barr [id number] Jagdeep Barr 06/15/2022 1 [employer] [id number] Jagdeep Barr [id number] Jagdeep Barr 12/14/2022 1 [employer] [id number] Jagdeep Barr [id number] Jagdeep Barr Notes Date Note Type Note Provider Name and Address Organization Details Recorded Time 08/25/2021 text/html 08/25/21 CC: Chest pain 61 year-old woman with h/o coronary artery disease s/p CABG x3 (02/05/18), dyslipidemia, cancer (lymphoma, s/p chemo 2004), family history of premature GA, is here for follow up coronary artery disease, chest pain. She was last seen in 2020. She denies ER visits and hospitalizations since she was last seen. Reports no chest pain. No arm pain. No neck pain. No nausea and vomiting. No diaphoresis. No shortness of breath at rest. No dyspnea on exertion. No fatigue.No orthopnea. No PND. No leg swelling. Reports leg cramping has overall resolved. No palpitation. Reports dizziness. No syncope. No pre-syncope. No claudication. No major bleeding events. No side effects from medications. Complete ROS negative except as stated in the HPI and ROS. She reports that she exercises daily with body weight strength training and walking for exercise and indoor bike. She swims. Home BP has been in the 120-130/70s. She takes metoprolol 25 mg AM and PM. Previously,She had NSTEMI at [place] on 02/02/18 and was transferred to [facility] where she had CABG x 3 on 02/05/[address] Galan (ANDREW to anterior descending coronary artery, left radial artery to obtuse marginal coronary artery, reverse saphenous vein graft to second diagonal coronary artery) for severe left main and 2 vessel CAD. She is feeling well since her CABG surgery and has completed cardiac rehab. She is active and walks 4 miles every day and swims. She denies chest pain with walking 4 miles. Had CATH done in 02/03/18 revealed Left main severe coronary artery disease and severe disease LAD and LCx. Normal left ventricular systolic function exertional dyspnea which can be an anginal equivalent Had echo 08/09/21: normal LV size and thickness, LVEF 65-70%, grade 2 DD, trace TR. Had ECHO done in 02/02/18 showed EF 55% , Mild to moderate tricuspid regurgitation. Mild mitral valve regurgitation . Had ARTERIAL DOPPLER on 04/10/18 with normal ankle branchial index. No significant lower extremity peripheral arterial disease detected. Had EKG 07/31/18 :Possible right atrial enlargement Non-Specific ST depression inferolateral leads. Had US, carotid artery 02/08/21 CAROTID US: Antegrade flow noted in both vertebral arteries. Mild right internal carotid artery stenosis with less than 50% diameter stenosis. Very mild left internal carotid artery stenosis with less than 15% diameter stenosis. Obtained carotid U/S 05/16/19: Antegrade flow noted in both vertebral arteries. Very mild left internal carotid artery stenosis with less than 15% diameter stenosis. Mild right bilateral carotid artery stenosis with less than 50% diameter stenosis. Compared to last study in 04/23, there are no changes. Had Carotid US done in 05/03/18 showed Antegrade flow noted in both vertebral arteries. Very mild left internal carotid artery stenosis with less than 15% diameter stenosis. Mild right internal carotid artery stenosis with less than 50% diameter stenosis. Had treadmill nuclear stress test (PROC) 02/05/20 Stress test: Negative stress test for ischemia. Normal LV function. Abnormal stress test. No previous study to compare. Artifact noted. Average exercise tolerance. Results from this visit, or from the past: 08/18/21: NA 142, K 5.3, CL 106, CO2 23, BUN 18, CR 0.67, GLU 104, AST 26, ALT 20 08/18/21: LIPID PANEL/TSH/MG: TC 167, TR 225, HDL 52, LDL 78, TSH 0.707. MG 2.1 lipid panel, blood :Na 143,K 4.5,Cl 106,CO2 22,GLU 87,BUN 18,Cr 0.74,AST 29,ALT 22,TC 162,TG 91,LDL 72,HDL 73.lipid panel, blood 05-20-2020 LIPID 05/20/2020 CH 141 TR 118 HDL 54 LDL 63 CMP, serum or plasma 02-19-2020 02/19/20: Na 140 ,K 4.5 , CL 102 ,CO2 25, GLU 95. ,BUN 18 , CR 0.69 ,AST 30,ALT 27 05/15/19: TC 113, TG 73, HDL 66, LDL [id number] Glucose 117,BUN 23,Creati 0.64,Na 141,K 4.4,Cl 103,CO2 23,Ca 9.5,Mag 1.: Na 143 ,K 5.4, CL 104 ,CO2 24, GLU 94 , BUN 18 , CR 0.68, AST 25 ,ALT : TC 242 ,TG 229 ,HDL 51 ,LDL 145 ,CK : TC 179 ,TG 112 , HDL 63, LDL 94,CK 5446208/29/18: NA 145 ,K 4.9 ,CL 103, CO2 22 , GLU 91 , BUN 14 , CR 0.53 ,AST 34 ,ALT 21, Mg 2. TC: 171, TR: 141, HDL: 54, LDL: 89 07/25/18: M.2 07/25/18: NA: 142, K: 4.8, CL: 106, CO2: 19, GL: 94, BUN: 19, AST: 28, ALT: 20, CR: 0.60 06/13/18: M.2 06/13/18: NA: 142, K: 5.1, CL: 106, CO2: 22, GLU: 95, BUN: 18, AST: 26, ALT: 18, CR: 0.61 06/13/18: TR: 162, TC: 188, HDL: 54, LDL: 102 06/13/18: CK: 139 05/11/18: TC 213, TG 266, HDL 52, LDL 108 04/03/18 : CK 65 02/09/18 CBC: WBC 9.3, RBC 3.01, HGB 9.4, HCT 28.5, PLT 343 02/09/18 BMP: SOD 137, K 4.6, CL 98, CO2 26, GL 107, BUN 20, CR 0.5 02/09/18 Lipid: TR 150, TC 112, LDL 48, HDL 34 02/04/18 FACTOR Xa HEPARIN : 0.67 02/02/2018: TC 141, LDL 64, TR 285, HDL 30 02/02/2018: SOD 141, K 4.1, CL 105, CO2 29, GL 99, BUN 18, CR 0.60,calcium 8.6 02/01/2018: WBC 13, HGB 10.2, HCT 31.5, PLT 808 02/01/2018: PT 12, INR 1.0, PTT 29 US, carotid artery 02-08-2021 EKG 06/16/2021: Sinus Rhythm BSLNA,NSST changes11/27/2019 EKG: Normal sinus rhythm within normal limitsEK01/21/19 Normal sinus rhythm. Within normal limits.EK10/24/18 Normal sinus rhythm.EKG 07/31/18 :Possible right atrial enlargement Non-Specific ST depression inferolateral leads02/06/18 EKG: Normal sinus rhythm. NSST changes. No previous ECGs available CXR 02/01/2018: No acute cardiopulmonary disease02/07/18 Chest XR: Interval pleural tube removal no acute findings Obtained carotid U/S 05/16/19: Antegrade flow noted in both vertebral arteries. Very mild left internal carotid artery stenosis with less than 15% diameter stenosis. Mild right bilateral carotid artery stenosis with less than 50% diameter stenosis. Compared to last study in 04/23, there are no changes. US, Carotid Artery 05/03/18 : Antegrade flow noted in both vertebral arteries. Very mild left internal carotid artery stenosis with less than 15% diameter stenosis. Mild right internal carotid artery stenosis with less than 50% diameter stenosis. Recommended follow-up study in 12 months. 04/10/18 ARTERIAL DOPPLER STUDY: Normal ankle branchial index. No significant lower extremity peripheral arterial disease detected. ECHO 02/02/2018: Normal left ventricular size. Ejection fraction is visually estimated at 55%; Estimated peak RVSP is 34 mmHg. Mild to moderate tricuspid regurgitation; Mild mitral valve regurgitation Had treadmill nuclear stress test (PROC)02/05/20 Stress test: Negative stress test for ischemia. Normal LV function. Abnormal stress test. No previous study to compare. Artifact noted. Average exercise tolerance. Ayaan mooney [place] [facility] 08/25/2021 12:53:46 11/03/2021 text/html 11/03/21 CC: Chest pain 61 year-old woman with h/o coronary artery disease s/p CABG x3 (02/05/18), dyslipidemia, cancer (lymphoma, s/p chemo 2004), family history of premature GA, is here for follow up coronary artery disease, chest pain. She was last seen in 2020. She denies ER visits and hospitalizations since she was last seen. Reports no chest pain. No arm pain. No neck pain. No nausea and vomiting. No diaphoresis. No shortness of breath at rest. No dyspnea on exertion. No fatigue.No orthopnea. No PND. No leg swelling. Reports increased bilateral resting leg cramping. No palpitation. Reports dizziness. No syncope. No pre-syncope. No claudication. No major bleeding events. No side effects from medications. Complete ROS negative except as stated in the HPI and ROS. She reports that she exercises daily with body weight strength training and walking for exercise and indoor bike. She swims. Home BP has been in the 120-130/70s. She takes metoprolol 25 mg AM and PM. Previously,She had NSTEMI at [place] on 02/02/18 and was transferred to [facility] where she had CABG x 3 on 02/05/[address] Galan (ANDREW to anterior descending coronary artery, left radial artery to obtuse marginal coronary artery, reverse saphenous vein graft to second diagonal coronary artery) for severe left main and 2 vessel CAD. She is feeling well since her CABG surgery and has completed cardiac rehab. She is active and walks 4 miles every day and swims. She denies chest pain with walking 4 miles. Had CATH done in 02/03/18 revealed Left main severe coronary artery disease and severe disease LAD and LCx. Normal left ventricular systolic function exertional dyspnea which can be an anginal equivalent Had echo 08/09/21: normal LV size and thickness, LVEF 65-70%, grade 2 DD, trace TR. Had ECHO done in 02/02/18 showed EF 55% , Mild to moderate tricuspid regurgitation. Mild mitral valve regurgitation . Had ARTERIAL DOPPLER on 04/10/18 with normal ankle branchial index. No significant lower extremity peripheral arterial disease detected. Had EKG 07/31/18 :Possible right atrial enlargement Non-Specific ST depression inferolateral leads. Had US, carotid artery 02/08/21 CAROTID US: Antegrade flow noted in both vertebral arteries. Mild right internal carotid artery stenosis with less than 50% diameter stenosis. Very mild left internal carotid artery stenosis with less than 15% diameter stenosis. Obtained carotid U/S 05/16/19: Antegrade flow noted in both vertebral arteries. Very mild left internal carotid artery stenosis with less than 15% diameter stenosis. Mild right bilateral carotid artery stenosis with less than 50% diameter stenosis. Compared to last study in 04/23, there are no changes. Had Carotid US done in 05/03/18 showed Antegrade flow noted in both vertebral arteries. Very mild left internal carotid artery stenosis with less than 15% diameter stenosis. Mild right internal carotid artery stenosis with less than 50% diameter stenosis. Had treadmill nuclear stress test (PROC) 02/05/20 Stress test: Negative stress test for ischemia. Normal LV function. Abnormal stress test. No previous study to compare. Artifact noted. Average exercise tolerance. Results from this visit, or from the past: 08/18/21 WBC-4.1. hemoglobin-13.5. Hematocrit-40.5. platelete-329.08/18/21 : NA 142, K 5.3, CL 106, CO2 23, BUN 18, CR 0.67, GLU 104, AST 26, ALT 20 08/18/21: LIPID PANEL/TSH/MG: TC 167, TR 225, HDL 52, LDL 78, TSH 0.707. MG 2.1 lipid panel, blood 83-29-508114/06/21:Na 143,K 4.5,Cl 106,CO2 22,GLU 87,BUN 18,Cr 0.74,AST 29,ALT 22,TC 162,TG 91,LDL 72,HDL 73.lipid panel, blood 05-20-2020 LIPID 05/20/2020 CH 141 TR 118 HDL 54 LDL 63 CMP, serum or plasma 02-19-2020 02/19/20: Na 140 ,K 4.5 , CL 102 ,CO2 25, GLU 95. ,BUN 18 , CR 0.69 ,AST 30,ALT 27 05/15/19: TC 113, TG 73, HDL 66, LDL [id number] Glucose 117,BUN 23,Creati 0.64,Na 141,K 4.4,Cl 103,CO2 23,Ca 9.5,Mag 1.9001/09/19: Na 143 ,K 5.4, CL 104 ,CO2 24, GLU 94 , BUN 18 , CR 0.68, AST 25 ,ALT : TC 242 ,TG 229 ,HDL 51 ,LDL 145 ,CK : TC 179 ,TG 112 , HDL 63, LDL 94,CK 0168008/29/18: NA 145 ,K 4.9 ,CL 103, CO2 22 , GLU 91 , BUN 14 , CR 0.53 ,AST 34 ,ALT 21, Mg 2. TC: 171, TR: 141, HDL: 54, LDL: 89 07/25/18: M.2 07/25/18: NA: 142, K: 4.8, CL: 106, CO2: 19, GL: 94, BUN: 19, AST: 28, ALT: 20, CR: 0.60 06/13/18: M.2 06/13/18: NA: 142, K: 5.1, CL: 106, CO2: 22, GLU: 95, BUN: 18, AST: 26, ALT: 18, CR: 0.61 06/13/18: TR: 162, TC: 188, HDL: 54, LDL: 102 06/13/18: CK: 139 05/11/18: TC 213, TG 266, HDL 52, LDL 108 04/03/18 : CK 65 02/09/18 CBC: WBC 9.3, RBC 3.01, HGB 9.4, HCT 28.5, PLT 343 02/09/18 BMP: SOD 137, K 4.6, CL 98, CO2 26, GL 107, BUN 20, CR 0.5 02/09/18 Lipid: TR 150, TC 112, LDL 48, HDL 34 02/04/18 FACTOR Xa HEPARIN : 0.67 02/02/2018: TC 141, LDL 64, TR 285, HDL 30 02/02/2018: SOD 141, K 4.1, CL 105, CO2 29, GL 99, BUN 18, CR 0.60,calcium 8.6 02/01/2018: WBC 13, HGB 10.2, HCT 31.5, PLT 808 02/01/2018: PT 12, INR 1.0, PTT 29 US, carotid artery 02-08-2021 EKG 06/16/2021: Sinus Rhythm BSLNA,NSST changes11/27/2019 EKG: Normal sinus rhythm within normal limitsEK01/21/19 Normal sinus rhythm. Within normal limits.EK10/24/18 Normal sinus rhythm.EKG 07/31/18 :Possible right atrial enlargement Non-Specific ST depression inferolateral leads02/06/18 EKG: Normal sinus rhythm. NSST changes. No previous ECGs available CXR 02/01/2018: No acute cardiopulmonary disease02/07/18 Chest XR: Interval pleural tube removal no acute findings Obtained carotid U/S 05/16/19: Antegrade flow noted in both vertebral arteries. Very mild left internal carotid artery stenosis with less than 15% diameter stenosis. Mild right bilateral carotid artery stenosis with less than 50% diameter stenosis. Compared to last study in 04/23, there are no changes. US, Carotid Artery 05/03/18 : Antegrade flow noted in both vertebral arteries. Very mild left internal carotid artery stenosis with less than 15% diameter stenosis. Mild right internal carotid artery stenosis with less than 50% diameter stenosis. Recommended follow-up study in 12 months. 04/10/18 ARTERIAL DOPPLER STUDY: Normal ankle branchial index. No significant lower extremity peripheral arterial disease detected. 08/09/21 ECHO: Study quality: Technically difficult. Technical limitations- poor acoustic window. LV chamber size is normal. LV wall thickness is normal. The estimated left ventricle ejection fraction is 65-70% (normal). There is increased left atrial pressure and Grade 11 diastolic dysfunction. The aortic valve is mildly calcified. There is mild thickening of the mitral valve anterior leaflet. There is trace triscupid regurgitation. ECHO 02/02/2018: Normal left ventricular size. Ejection fraction is visually estimated at 55%; Estimated peak RVSP is 34 mmHg. Mild to moderate tricuspid regurgitation; Mild mitral valve regurgitation Had treadmill nuclear stress test (PROC)02/05/20 Stress test: Negative stress test for ischemia. Normal LV function. Abnormal stress test. No previous study to compare. Artifact noted. Average exercise tolerance. [facility] [place] [facility] 11/03/2021 13:10:38 03/02/2022 text/html 03/02/22 CC: chest pain 61 year-old woman with h/o coronary artery disease s/p CABG x3 (02/05/18), dyslipidemia, cancer (lymphoma, s/p chemo 2004), family history of premature GA, is here for follow up coronary artery disease, chest pain. She was last seen in 2020. She denies ER visits and hospitalizations since she was last seen. Reports no chest pain. No arm pain. No neck pain. No nausea and vomiting. No diaphoresis. No shortness of breath at rest. Reports increased dyspnea on exertion climbing stairs since early 02/2022. No fatigue. No orthopnea. No PND. No leg swelling. Reports increased bilateral resting leg cramping. No palpitation. Reports no dizziness. No syncope. No pre-syncope. No claudication. No major bleeding events. No side effects from medications. Complete ROS negative except as stated in the HPI and ROS. She reports that she exercises daily with body weight strength training and walking for exercise and indoor bike. She swims. Home BP has been in the 120-130/70s. She takes metoprolol 25 mg AM and PM. Previously,She had NSTEMI at [place] on 02/02/18 and was transferred to [facility] where she had CABG x 3 on 02/05/[address] Galan (ANDREW to anterior descending coronary artery, left radial artery to obtuse marginal coronary artery, reverse saphenous vein graft to second diagonal coronary artery) for severe left main and 2 vessel CAD. She is feeling well since her CABG surgery and has completed cardiac rehab. She is active and walks 4 miles every day and swims. She denies chest pain with walking 4 miles. Had CATH done in 02/03/18 revealed Left main severe coronary artery disease and severe disease LAD and LCx. Normal left ventricular systolic function exertional dyspnea which can be an anginal equivalent Had echo 08/09/21: normal LV size and thickness, LVEF 65-70%, grade 2 DD, trace TR. Had ECHO done in 02/02/18 showed EF 55% , Mild to moderate tricuspid regurgitation. Mild mitral valve regurgitation . Had ARTERIAL DOPPLER on 04/10/18 with normal ankle branchial index. No significant lower extremity peripheral arterial disease detected. Had EKG 07/31/18 :Possible right atrial enlargement Non-Specific ST depression inferolateral leads. Had US, carotid artery 02/08/21 CAROTID US: Antegrade flow noted in both vertebral arteries. Mild right internal carotid artery stenosis with less than 50% diameter stenosis. Very mild left internal carotid artery stenosis with less than 15% diameter stenosis. Obtained carotid U/S 05/16/19: Antegrade flow noted in both vertebral arteries. Very mild left internal carotid artery stenosis with less than 15% diameter stenosis. Mild right bilateral carotid artery stenosis with less than 50% diameter stenosis. Compared to last study in 04/23, there are no changes. Had Carotid US done in 05/03/18 showed Antegrade flow noted in both vertebral arteries. Very mild left internal carotid artery stenosis with less than 15% diameter stenosis. Mild right internal carotid artery stenosis with less than 50% diameter stenosis. Had treadmill nuclear stress test (PROC) 02/05/20 Stress test: Negative stress test for ischemia. Normal LV function. Abnormal stress test. No previous study to compare. Artifact noted. Average exercise tolerance. Results from this visit, or from the past: 10/28/21: CMP: GL 85 BUN 20 CR 0.65 NA 141 POT 5.0 CL 104 CA 10.6 MAG 2.3LIPID: CHOL 241 TRIG 107 HDL 69 LDL 153 08/18/21 WBC-4.1. hemoglobin-13.5. Hematocrit-40.5. platelete-329.08/18/21 : NA 142, K 5.3, CL 106, CO2 23, BUN 18, CR 0.67, GLU 104, AST 26, ALT : LIPID PANEL/TSH/MG: TC 167, TR 225, HDL 52, LDL 78, TSH 0.707. MG 2.1 lipid panel, blood 65-56-216706/06/21:Na 143,K 4.5,Cl 106,CO2 22,GLU 87,BUN 18,Cr 0.74,AST 29,ALT 22,TC 162,TG 91,LDL 72,HDL 73.lipid panel, blood 05-20-2020 LIPID 05/20/2020 CH 141 TR 118 HDL 54 LDL 63 CMP, serum or plasma 02-19-2020 02/19/20: Na 140 ,K 4.5 , CL 102 ,CO2 25, GLU 95. ,BUN 18 , CR 0.69 ,AST 30,ALT 27 05/15/19: TC 113, TG 73, HDL 66, LDL [id number] Glucose 117,BUN 23,Creati 0.64,Na 141,K 4.4,Cl 103,CO2 23,Ca 9.5,Mag 1.9001/09/19: Na 143 ,K 5.4, CL 104 ,CO2 24, GLU 94 , BUN 18 , CR 0.68, AST 25 ,ALT : TC 242 ,TG 229 ,HDL 51 ,LDL 145 ,CK : TC 179 ,TG 112 , HDL 63, LDL 94,CK 2059308/29/18: NA 145 ,K 4.9 ,CL 103, CO2 22 , GLU 91 , BUN 14 , CR 0.53 ,AST 34 ,ALT 21, Mg 2. TC: 171, TR: 141, HDL: 54, LDL: : M.: NA: 142, K: 4.8, CL: 106, CO2: 19, GL: 94, BUN: 19, AST: 28, ALT: 20, CR: 0.: M.208: NA: 142, K: 5.1, CL: 106, CO2: 22, GLU: 95, BUN: 18, AST: 26, ALT: 18, CR: 0.: TR: 162, TC: 188, HDL: 54, LDL: 37959: CK: 90624: TC 213, TG 266, HDL 52, LDL 73139 : CK 654 CBC: WBC 9.3, RBC 3.01, HGB 9.4, HCT 28.5, PLT 3434 BMP: SOD 137, K 4.6, CL 98, CO2 26, GL 107, BUN 20, CR 0.54 Lipid: TR 150, TC 112, LDL 48, HDL FACTOR Xa HEPARIN : 0.6703: TC 141, LDL 64, TR 285, HDL 3003: SOD 141, K 4.1, CL 105, CO2 29, GL 99, BUN 18, CR 0.60,calcium 8.603: WBC 13, HGB 10.2, HCT 31.5, PLT 31922: PT 12, INR 1.0, PTT 29 US, carotid artery 02-08-2021 11-03-2021 Electrode misplacement, warning; V2- V3 electrodes possibly reversed, sinus rhythm,P; normal, QRS, normal, ST-T; normal, conclusion: normal ECG.EKG 06/16/2021: Sinus Rhythm BSLNA,NSST changes11/27/2019 EKG: Normal sinus rhythm within normal limitsEK01/21/19 Normal sinus rhythm. Within normal limits.EK10/24/18 Normal sinus rhythm.EKG 07/31/18 :Possible right atrial enlargement Non-Specific ST depression inferolateral leads02/06/18 EKG: Normal sinus rhythm. NSST changes. No previous ECGs available CXR 02/01/2018: No acute cardiopulmonary disease02/07/18 Chest XR: Interval pleural tube removal no acute findings Obtained carotid U/S 05/16/19: Antegrade flow noted in both vertebral arteries. Very mild left internal carotid artery stenosis with less than 15% diameter stenosis. Mild right bilateral carotid artery stenosis with less than 50% diameter stenosis. Compared to last study in 04/23, there are no changes. US, Carotid Artery 05/03/18 : Antegrade flow noted in both vertebral arteries. Very mild left internal carotid artery stenosis with less than 15% diameter stenosis. Mild right internal carotid artery stenosis with less than 50% diameter stenosis. Recommended follow-up study in 12 months. 04/10/18 ARTERIAL DOPPLER STUDY: Normal ankle branchial index. No significant lower extremity peripheral arterial disease detected. 08/09/21 ECHO: Study quality: Technically difficult. Technical limitations- poor acoustic window. LV chamber size is normal. LV wall thickness is normal. The estimated left ventricle ejection fraction is 65-70% (normal). There is increased left atrial pressure and Grade 11 diastolic dysfunction. The aortic valve is mildly calcified. There is mild thickening of the mitral valve anterior leaflet. There is trace triscupid regurgitation. ECHO 02/02/2018: Normal left ventricular size. Ejection fraction is visually estimated at 55%; Estimated peak RVSP is 34 mmHg. Mild to moderate tricuspid regurgitation; Mild mitral valve regurgitation Had treadmill nuclear stress test (PROC)02/05/20 Stress test: Negative stress test for ischemia. Normal LV function. Abnormal stress test. No previous study to compare. Artifact noted. Average exercise tolerance. [place] - [facility] 03/02/2022 12:28:00 06/15/2022 text/html 06/15/22 CC: chest pain 61 year-old woman with h/o coronary artery disease s/p CABG x3 (02/05/18), dyslipidemia, cancer (lymphoma, s/p chemo 2004), family history of premature GA, is here for follow up coronary artery disease, chest pain. She was last seen in 02/2022. She denies ER visits and hospitalizations since she was last seen. Reports no chest pain. No arm pain. No neck pain. No nausea and vomiting. No diaphoresis. No shortness of breath at rest. Reports increased dyspnea on exertion climbing stairs since early 02/2022, improving. No fatigue. No orthopnea. No PND. No leg swelling. Reports increased bilateral resting leg cramping. No palpitation. Reports no dizziness. No syncope. No pre-syncope. No claudication. No major bleeding events. No side effects from medications. Complete ROS negative except as stated in the HPI and ROS. She reports that she exercises daily with body weight strength training and walking for exercise and indoor bike. She swims. Home BP has been in the 120-130/70s. She takes metoprolol 25 mg AM and PM. Previously,She had NSTEMI at [place] on 02/02/18 and was transferred to [facility] where she had CABG x 3 on 02/05/[address] Galan (ANDREW to anterior descending coronary artery, left radial artery to obtuse marginal coronary artery, reverse saphenous vein graft to second diagonal coronary artery) for severe left main and 2 vessel CAD. She is feeling well since her CABG surgery and has completed cardiac rehab. She is active and walks 4 miles every day and swims. She denies chest pain with walking 4 miles. Had CATH done in 02/03/18 revealed Left main severe coronary artery disease and severe disease LAD and LCx. Normal left ventricular systolic function exertional dyspnea which can be an anginal equivalent Had echo 08/09/21: normal LV size and thickness, LVEF 65-70%, grade 2 DD, trace TR. Had ECHO done in 02/02/18 showed EF 55% , Mild to moderate tricuspid regurgitation. Mild mitral valve regurgitation . Had ARTERIAL DOPPLER on 04/10/18 with normal ankle branchial index. No significant lower extremity peripheral arterial disease detected. Had EKG 07/31/18 :Possible right atrial enlargement Non-Specific ST depression inferolateral leads. Had US, carotid artery 02/08/21 CAROTID US: Antegrade flow noted in both vertebral arteries. Mild right internal carotid artery stenosis with less than 50% diameter stenosis. Very mild left internal carotid artery stenosis with less than 15% diameter stenosis. Obtained carotid U/S 05/16/19: Antegrade flow noted in both vertebral arteries. Very mild left internal carotid artery stenosis with less than 15% diameter stenosis. Mild right bilateral carotid artery stenosis with less than 50% diameter stenosis. Compared to last study in 04/23, there are no changes. Had Carotid US done in 05/03/18 showed Antegrade flow noted in both vertebral arteries. Very mild left internal carotid artery stenosis with less than 15% diameter stenosis. Mild right internal carotid artery stenosis with less than 50% diameter stenosis. Had exercise nuclear stress test 05/24/22: Negative stress test for ischemia . Normal LV systolic function. Compared to the last study in 02/05/20, there are no changes. Exercise tolerance: Average. Had treadmill nuclear stress test (PROC) 02/05/20 Stress test: Negative stress test for ischemia. Normal LV function. Abnormal stress test. No previous study to compare. Artifact noted. Average exercise tolerance. Results from this visit, or from the past: 05/25/22:Na 142,K 4.1,CL 106,CO2 22,GLU 104,BUN 19,Cr 0.62, Mg 2.:WBC 3.9,RBC 4.16,HB 13.2,HCT 39.0,PLT 306. 10/28/21: CMP: GL 85 BUN 20 CR 0.65 NA 141 POT 5.0 CL 104 CA 10.6 MAG 2.3LIPID: CHOL 241 TRIG 107 HDL 69 LDL 153 08/18/21 WBC-4.1. hemoglobin-13.5. Hematocrit-40.5. platelete-329.08/18/21 : NA 142, K 5.3, CL 106, CO2 23, BUN 18, CR 0.67, GLU 104, AST 26, ALT : LIPID PANEL/TSH/MG: TC 167, TR 225, HDL 52, LDL 78, TSH 0.707. MG 2.1 lipid panel, blood 86-51-846913/06/21:Na 143,K 4.5,Cl 106,CO2 22,GLU 87,BUN 18,Cr 0.74,AST 29,ALT 22,TC 162,TG 91,LDL 72,HDL 73.lipid panel, blood 05-20-2020 LIPID 05/20/2020 CH 141 TR 118 HDL 54 LDL 63 CMP, serum or plasma 02-19-2020 02/19/20: Na 140 ,K 4.5 , CL 102 ,CO2 25, GLU 95. ,BUN 18 , CR 0.69 ,AST 30,ALT 27 05/15/19: TC 113, TG 73, HDL 66, LDL [id number] Glucose 117,BUN 23,Creati 0.64,Na 141,K 4.4,Cl 103,CO2 23,Ca 9.5,Mag 1.903: Na 143 ,K 5.4, CL 104 ,CO2 24, GLU 94 , BUN 18 , CR 0.68, AST 25 ,ALT : TC 242 ,TG 229 ,HDL 51 ,LDL 145 ,CK : TC 179 ,TG 112 , HDL 63, LDL 94,CK 6874408/29/18: NA 145 ,K 4.9 ,CL 103, CO2 22 , GLU 91 , BUN 14 , CR 0.53 ,AST 34 ,ALT 21, Mg 2. TC: 171, TR: 141, HDL: 54, LDL: : M.: NA: 142, K: 4.8, CL: 106, CO2: 19, GL: 94, BUN: 19, AST: 28, ALT: 20, CR: 0.: M.: NA: 142, K: 5.1, CL: 106, CO2: 22, GLU: 95, BUN: 18, AST: 26, ALT: 18, CR: 0.: TR: 162, TC: 188, HDL: 54, LDL: 70035: CK: 0454105/11/18: TC 213, TG 266, HDL 52, LDL 41627 : CK 654 CBC: WBC 9.3, RBC 3.01, HGB 9.4, HCT 28.5, PLT 3434 BMP: SOD 137, K 4.6, CL 98, CO2 26, GL 107, BUN 20, CR 0.54 Lipid: TR 150, TC 112, LDL 48, HDL FACTOR Xa HEPARIN : 0.6703: TC 141, LDL 64, TR 285, HDL 3003: SOD 141, K 4.1, CL 105, CO2 29, GL 99, BUN 18, CR 0.60,calcium 8.603: WBC 13, HGB 10.2, HCT 31.5, PLT 20456: PT 12, INR 1.0, PTT 29 US, carotid artery 02-08-2021 11-03-2021 Electrode misplacement, warning; V2- V3 electrodes possibly reversed, sinus rhythm,P; normal, QRS, normal, ST-T; normal, conclusion: normal ECG.EKG 06/16/2021: Sinus Rhythm BSLNA,NSST changes11/27/2019 EKG: Normal sinus rhythm within normal limitsEK01/21/19 Normal sinus rhythm. Within normal limits.EK10/24/18 Normal sinus rhythm.EKG 07/31/18 :Possible right atrial enlargement Non-Specific ST depression inferolateral leads02/06/18 EKG: Normal sinus rhythm. NSST changes. No previous ECGs available CXR 02/01/2018: No acute cardiopulmonary disease02/07/18 Chest XR: Interval pleural tube removal no acute findings Obtained carotid U/S 05/16/19: Antegrade flow noted in both vertebral arteries. Very mild left internal carotid artery stenosis with less than 15% diameter stenosis. Mild right bilateral carotid artery stenosis with less than 50% diameter stenosis. Compared to last study in 04/23, there are no changes. US, Carotid Artery 05/03/18 : Antegrade flow noted in both vertebral arteries. Very mild left internal carotid artery stenosis with less than 15% diameter stenosis. Mild right internal carotid artery stenosis with less than 50% diameter stenosis. Recommended follow-up study in 12 months. 04/10/18 ARTERIAL DOPPLER STUDY: Normal ankle branchial index. No significant lower extremity peripheral arterial disease detected. 08/09/21 ECHO: Study quality: Technically difficult. Technical limitations- poor acoustic window. LV chamber size is normal. LV wall thickness is normal. The estimated left ventricle ejection fraction is 65-70% (normal). There is increased left atrial pressure and Grade 11 diastolic dysfunction. The aortic valve is mildly calcified. There is mild thickening of the mitral valve anterior leaflet. There is trace triscupid regurgitation. ECHO 02/02/2018: Normal left ventricular size. Ejection fraction is visually estimated at 55%; Estimated peak RVSP is 34 mmHg. Mild to moderate tricuspid regurgitation; Mild mitral valve regurgitation Had treadmill nuclear stress test (PROC)02/05/20 Stress test: Negative stress test for ischemia. Normal LV function. Abnormal stress test. No previous study to compare. Artifact noted. Average exercise tolerance. DONALD Velázquez - [facility] 06/15/2022 12:50:25 12/14/2022 text/html 12/14/22 CC: chest pain 62 year-old woman with h/o coronary artery disease s/p CABG x3 (02/05/18), dyslipidemia, cancer (lymphoma, s/p chemo 2004), family history of premature GA, is here for follow up coronary artery disease, chest pain. She was last seen in 06/2022. She denies ER visits and hospitalizations since she was last seen except for colitis 09/2022. Reports no chest pain. No arm pain. No neck pain. No nausea and vomiting. No diaphoresis. No shortness of breath at rest. Reports increased dyspnea on exertion climbing stairs since early 02/2022, improving. No fatigue. No orthopnea. No PND. No leg swelling. Reports increased bilateral resting leg cramping. No palpitation. Reports no dizziness. No syncope. No pre-syncope. No claudication. No major bleeding events. No side effects from medications. Complete ROS negative except as stated in the HPI and ROS. She reports that she exercises daily with body weight strength training and walking for exercise and indoor bike. She swims. Home BP has been in the 120-130/70s. She takes metoprolol 25 mg AM and PM. Previously,She had NSTEMI at [place] on 02/02/18 and was transferred to [facility] where she had CABG x 3 on 02/05/[address] Galan (ANDREW to anterior descending coronary artery, left radial artery to obtuse marginal coronary artery, reverse saphenous vein graft to second diagonal coronary artery) for severe left main and 2 vessel CAD. She is feeling well since her CABG surgery and has completed cardiac rehab. She is active and walks 4 miles every day and swims. She denies chest pain with walking 4 miles. Had CATH done in 02/03/18 revealed Left main severe coronary artery disease and severe disease LAD and LCx. Normal left ventricular systolic function exertional dyspnea which can be an anginal equivalent Had echo 08/09/21: normal LV size and thickness, LVEF 65-70%, grade 2 DD, trace TR. Had ECHO done in 02/02/18 showed EF 55% , Mild to moderate tricuspid regurgitation. Mild mitral valve regurgitation . Had ARTERIAL DOPPLER on 04/10/18 with normal ankle branchial index. No significant lower extremity peripheral arterial disease detected. Had EKG 07/31/18 :Possible right atrial enlargement Non-Specific ST depression inferolateral leads. Had US, carotid artery 02/08/21 CAROTID US: Antegrade flow noted in both vertebral arteries. Mild right internal carotid artery stenosis with less than 50% diameter stenosis. Very mild left internal carotid artery stenosis with less than 15% diameter stenosis. Obtained carotid U/S 05/16/19: Antegrade flow noted in both vertebral arteries. Very mild left internal carotid artery stenosis with less than 15% diameter stenosis. Mild right bilateral carotid artery stenosis with less than 50% diameter stenosis. Compared to last study in 04/23, there are no changes. Had Carotid US done in 05/03/18 showed Antegrade flow noted in both vertebral arteries. Very mild left internal carotid artery stenosis with less than 15% diameter stenosis. Mild right internal carotid artery stenosis with less than 50% diameter stenosis. Had exercise nuclear stress test 05/24/22: Negative stress test for ischemia . Normal LV systolic function. Compared to the last study in 02/05/20, there are no changes. Exercise tolerance: Average. Had treadmill nuclear stress test (PROC) 02/05/20 Stress test: Negative stress test for ischemia. Normal LV function. Abnormal stress test. No previous study to compare. Artifact noted. Average exercise tolerance. Results from this visit, or from the past: 2CMP-GL 94 BUN 23 CR 0.65 NA 143 K 4.3 CA 9.7LIPID-CHOL 147 TRIG 110 HDL 65 LDL 62MAG-2.1 05/25/22:Na 142,K 4.1,CL 106,CO2 22,GLU 104,BUN 19,Cr 0.62, Mg 2.:WBC 3.9,RBC 4.16,HB 13.2,HCT 39.0,PLT 306. 10/28/21: CMP: GL 85 BUN 20 CR 0.65 NA 141 POT 5.0 CL 104 CA 10.6 MAG 2.3LIPID: CHOL 241 TRIG 107 HDL 69 LDL 153 08/18/21 WBC-4.1. hemoglobin-13.5. Hematocrit-40.5. platelete-329.08/18/21 : NA 142, K 5.3, CL 106, CO2 23, BUN 18, CR 0.67, GLU 104, AST 26, ALT : LIPID PANEL/TSH/MG: TC 167, TR 225, HDL 52, LDL 78, TSH 0.707. MG 2.1 lipid panel, blood 80-78-173066/06/21:Na 143,K 4.5,Cl 106,CO2 22,GLU 87,BUN 18,Cr 0.74,AST 29,ALT 22,TC 162,TG 91,LDL 72,HDL 73.lipid panel, blood 05-20-2020 LIPID 05/20/2020 CH 141 TR 118 HDL 54 LDL 63 CMP, serum or plasma 02-19-2020 02/19/20: Na 140 ,K 4.5 , CL 102 ,CO2 25, GLU 95. ,BUN 18 , CR 0.69 ,AST 30,ALT 27 05/15/19: TC 113, TG 73, HDL 66, LDL 1129-51-5266 Glucose 117,BUN 23,Creati 0.64,Na 141,K 4.4,Cl 103,CO2 23,Ca 9.5,Mag 1.9001/09/19: Na 143 ,K 5.4, CL 104 ,CO2 24, GLU 94 , BUN 18 , CR 0.68, AST 25 ,ALT : TC 242 ,TG 229 ,HDL 51 ,LDL 145 ,CK : TC 179 ,TG 112 , HDL 63, LDL 94,CK 0550508/29/18: NA 145 ,K 4.9 ,CL 103, CO2 22 , GLU 91 , BUN 14 , CR 0.53 ,AST 34 ,ALT 21, Mg 2. TC: 171, TR: 141, HDL: 54, LDL: : M.: NA: 142, K: 4.8, CL: 106, CO2: 19, GL: 94, BUN: 19, AST: 28, ALT: 20, CR: 0.: M.208: NA: 142, K: 5.1, CL: 106, CO2: 22, GLU: 95, BUN: 18, AST: 26, ALT: 18, CR: 0.: TR: 162, TC: 188, HDL: 54, LDL: 38688: CK: 24451: TC 213, TG 266, HDL 52, LDL 79134 : CK 654 CBC: WBC 9.3, RBC 3.01, HGB 9.4, HCT 28.5, PLT 3434/04/23 BMP: SOD 137, K 4.6, CL 98, CO2 26, GL 107, BUN 20, CR 0.54 Lipid: TR 150, TC 112, LDL 48, HDL FACTOR Xa HEPARIN : 0.67002/02/2018: TC 141, LDL 64, TR 285, HDL 3003: SOD 141, K 4.1, CL 105, CO2 29, GL 99, BUN 18, CR 0.60,calcium 8.603: WBC 13, HGB 10.2, HCT 31.5, PLT 55812: PT 12, INR 1.0, PTT 29 US, carotid artery 02-08-2021 11-03-2021 Electrode misplacement, warning; V2- V3 electrodes possibly reversed, sinus rhythm,P; normal, QRS, normal, ST-T; normal, conclusion: normal ECG.EKG 06/16/2021: Sinus Rhythm BSLNA,NSST changes11/27/2019 EKG: Normal sinus rhythm within normal limitsEK01/21/19 Normal sinus rhythm. Within normal limits.EK10/24/18 Normal sinus rhythm.EKG 07/31/18 :Possible right atrial enlargement Non-Specific ST depression inferolateral leads02/06/18 EKG: Normal sinus rhythm. NSST changes. No previous ECGs available CXR 02/01/2018: No acute cardiopulmonary disease02/07/18 Chest XR: Interval pleural tube removal no acute findings Obtained carotid U/S 05/16/19: Antegrade flow noted in both vertebral arteries. Very mild left internal carotid artery stenosis with less than 15% diameter stenosis. Mild right bilateral carotid artery stenosis with less than 50% diameter stenosis. Compared to last study in 04/23, there are no changes. US, Carotid Artery 05/03/18 : Antegrade flow noted in both vertebral arteries. Very mild left internal carotid artery stenosis with less than 15% diameter stenosis. Mild right internal carotid artery stenosis with less than 50% diameter stenosis. Recommended follow-up study in 12 months. 04/10/18 ARTERIAL DOPPLER STUDY: Normal ankle branchial index. No significant lower extremity peripheral arterial disease detected. 10/04/21 ECHO: Study quality: Technically difficult. Technical limitations- poor acoustic window. LV chamber size is normal. LV wall thickness is normal. The estimated left ventricle ejection fraction is 65-70% (normal). There is increased left atrial pressure and Grade 11 diastolic dysfunction. The aortic valve is mildly calcified. There is mild thickening of the mitral valve anterior leaflet. There is trace triscupid regurgitation. ECHO 02/02/2018: Normal left ventricular size. Ejection fraction is visually estimated at 55%; Estimated peak RVSP is 34 mmHg. Mild to moderate tricuspid regurgitation; Mild mitral valve regurgitation Had treadmill nuclear stress test (PROC)02/05/20 Stress test: Negative stress test for ischemia. Normal LV function. Abnormal stress test. No previous study to compare. Artifact noted. Average exercise tolerance. DONALD Velázquez - [facility] 12/14/2022 13:47:34 OBGyn Episode No OBEpisode recorded.
--- OUTSIDE RECORDS SUMMARY | 2024-10-25 03:07 | XMS_ITS | Encounter Summary ---
Author Organization [facility] Address [address] [place] [address]. 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
--- OUTSIDE RECORDS SUMMARY | 2024-10-25 03:07 | XMS_ITS | Clinical Summary ---
Author Organization [facility] Address [address] [place] [address]. 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 Gender Identity Not on file Sexual Orientation Not on file Plan of Treatment Health Maintenance Due Date Last Done Comments Colorectal Cancer Screening Colonoscopy (10 Years) 1958 Hepatitis C 1976 DTaP, Tdap and Td Vaccines ( 1 - Tdap) 1977 Mammogram Screening 1998 Zoster Vaccines (1 of 2) 2008 RSV Immunization or 60+ Years (1 - 1-dose 60+ series) 2018 Dexa Scan (General) 2023 Pneumococcal Vaccine: 65+ Ye ars (1 of 1 - PCV) 2023 COVID-19 Vaccine ( - 2023-2 5 season) 2024 Influenza Adult (#1) 2024 Meningococcal Vaccine Aged Out No vaishali any eligible based on patient's age to complete this topic Pneumococcal Vaccine: Pediat rics (0 to 5 Years) and At-Risk Patients (6 to 64 Years) Aged Out No longer eligible b ased on patient's age to complete this topic RSV Immunizations Under 20 Months Aged Out No longer eligible based on patient's age to complete this topic
--- OUTSIDE RECORDS SUMMARY | 2024-10-25 03:08 | XMS_ITS | Clinical Summary ---
Author Organization [facility] Address [address] [place] [address] Phone Care Team Providers Care Certified Phlebotomy Technician Name Role Phone Liberty Hernandez MD Primary Care Provider [phone] Allergies No known active allergies Medications Medication Sig Dispensed Refills Start Date End Date Status evolocumab (REPATHA SURECLICK) 140 mg/mL Pen Injector Inject 140 mg by subcutaneous injection. Active raloxifene (EVISTA) 60 mg tablet Take 50 mg by mouth daily. Active ascorbic acid, vitamin C, (VITAMIN C) 100 mg Tablet Take 100 mg by mouth daily. Active cyanocobalamin (VITAMIN B-12) 100 mcg tablet Take 100 mcg by mouth daily. Active metoprolol succinate (TOPROL XL) 25 mg Extended Release 24 hour tablet Take 50 mg by mouth daily. 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 Active HYDROcodone-homatrop ine (HYCODAN) 5-1.5 mg Tablet Take 1 Tablet by mouth every 4 hours as needed for Cough. Active HYDROcodone-acetamin ophen (XODOL) 10-300 mg Tablet Take 0.5 Tablets by mouth every 4 hours as needed for Pain, Moderate. Active aspirin (NEREIDA CHEWABLE) 81 mg Tablet, Chewable Take 81 mg by mouth daily. Active Immunizations Name Administration Dates Next Due (ADACEL/BOOSTRIX)(10 YR UP) TDAP VACCINE, 0.5ML, IM 07/04/2019 Social History Tobacco Use Types Packs/Day Years Used Date Smoking Tobacco: Never Smokeless Tobacco: Never Alcohol Use Standard Drinks/Week Comments Yes 0 (1 standard drink = 0.6 oz pur e alcohol) drinks on weekends Sex and Gender Information Value Date Recorded Sex Assigned at Not on file Gender Identity Not on file Sexual Orientation Not on file Last Filed Vital Signs Vital Sign Reading Time Taken Comments Blood Pressure 126/71 07/04/2019 3:00 AM CDT Pulse 61 07/04/2019 3:00 AM CDT Temperature 36.7 ??C (98.1 ??F) 07/04/2019 2:13 AM CD T Respiratory Rate 18 07/04/2019 2:13 AM CDT Oxygen Saturation 98% 07/04/2019 3:00 AM CDT Inhaled Oxygen Concentration - - Weight 54.4 kg (120 lb) 07/04/2019 2:13 AM CDT Height 160 cm (5' 3 ) 07/04/2019 2:13 AM CDT Body Mass Index 21.26 07/04/2019 2:13 AM CDT Plan of Treatment Health Maintenance Due Date Last Done Comments BREAST CANCER SCREENING 1998 COLORECTAL SCREENING 2003 Colorectal Cancer Screening 2003 FIT-DNA Q 3 years 2003 FIT/FOBT Q 1 year 2003 Flex Sig/CT Colonography Q 5 years 2003 ZOSTER VACCINE (1 of 2) 2008 OSTEOPOROSIS SCREENING 2023 PNEUMOCOCCAL VACCINE 65+ YEARS (1 of 1 - PCV) 08/14/20 23 INFLUENZA VACCINE (#1) 2024 DTAP/TDAP/TD VACCINES (2 - Td or Tdap) 07/04/2029 RSV VACCINE (60+ or ) (1 - 1-dose 75+ series) 2033 Care Teams Certified Phlebotomy Technician Relationship Specialty [place] [address] [place] [address] PCP - General 07/14/04
--- OUTSIDE RECORDS SUMMARY | 2024-10-25 03:08 | XMS_ITS | Encounter Summary ---
Author Organization [employer] [facility] Address [address] [place] [address] Care Team Providers Care Topographic Computator Name Role Phone Liberty Hernandez MD Primary Care Provider [phone] Encounter Details Date Type Department Care Team (Latest Contact Info) Description 09/13/2005 Outpatient Historical [facility] Wallace Anthony MD NO ADDRESS ON FILE LYMPHOMA UNSP SITE XTRNOD/SOLID ORG (Primary Dx) Social History Tobacco Use Types Packs/Day Years Used Date Smoking Tobacco: Never Assessed Sex and Gender Information Value Date Recorded Sex Assigned at Not on file Gender Identity Not on file Sexual Orientation Not on file documented as of this encounter Plan of Treatment Not on file documented as of this encounter Procedures Procedure Name Priority Date/Time Associated Diagnosis Comments CBC WITH DIFFERENTIAL Routine 10/05/2005 8:28 AM OBSERVATION ASSISTANT CBC WITH DIFFERENTIAL Routine 10/05/2005 8:28 AM OBSERVATION ASSISTANT COMPREHENSIVE METABOLIC PANEL Routine 10/05/2005 8:28 AM OBSERVATION ASSISTANT CBC WITH DIFFERENTIAL Routine 09/28/2005 2:20 PM OBSERVATION ASSISTANT CBC WITH DIFFERENTIAL Routine 09/28/2005 2:20 PM OBSERVATION ASSISTANT CBC WITH DIFFERENTIAL Routine 09/14/2005 11:06 AM OBSERVATION ASSISTANT CBC WITH DIFFERENTIAL Routine 09/14/2005 11:06 AM OBSERVATION ASSISTANT documented in this encounter Results * (ABNORMAL) CBC WITH DIFFERENTIAL (10/05/2005 8:28 AM OBSERVATION ASSISTANT) NEUTROPHILS 46 45 - 70 % INTERFAC E SYSTEM LYMPHOCYTES 29 16 - 45 % INTERFAC E SYSTEM MONOCYTES 22(H) 3 - 13 % INTERFACE SYSTEM EOSINOPHILS 3 0 - 7 % INTERFAC E SYSTEM BASOPHILS 1 0 - 2 % INTERFACE SYSTEM NEUTROPHIL ABSOLUTE 1.51(L) 1.90 - 7.00 K/uL INTERFACE SYSTEM LYMPHOCYTE ABSOLUTE 0.96 0.70 - 4.50 K/uL INTERFACE SYSTEM MONOCYTE ABSOLUTE 0.71 0.10 - 1.30 K/uL INTERFACE SYSTEM EOSINOPHIL ABSOLUTE 0.10 0.00 - 0.70 K/uL INTERFACE SYSTEM BASOPHILS ABSOLUTE 0.02 0.00 - 0.20 K/uL INTERFACE SYSTEM 10/05/2005 8:28 AM OBSERVATION ASSISTANT Wallace Anthony MD HEMATOLOGY ORDERABLE S Performing Organization Address [facility] Phone Number INTERFACE SYSTEM Refer to clinic/hospital department * (ABNORMAL) CBC WITH DIFFERENTIAL (10/05/2005 8:28 AM OBSERVATION ASSISTANT) Pathologist [facility] WBC 3.3(L) 4.0 - 9.8 K/uL INTERFACE SYSTEM RBC 3.78(L) 3.90 - 4.90 M/uL INTERFACE SYSTEM HEMOGLOBIN 12.4 11.8 - 14.8 g/dL INTERFACE SYSTEM HEMATOCRIT 34.4(L) 35.5 - 44.0 % INTERFACE SYSTEM MCV 91.0 82.0 - 99.0 fL INTERFACE SYSTEM MCH 32.8(H) 27.2 - 32.6 pg INTERFACE SYSTEM MCHC 36.0(H) 31.5 - 35.5 % INTERFACE SYSTEM RDW 12.1 11.5 - 14.5 % INTERFACE SYSTEM RDW-STDEV 38.9 37.1 - 48.7 fL INTERFACE SYSTEM PLATELETS 345 140 - 350 K/uL INTERFACE SYSTEM MPV 8.6(L) 9.3 - 12.4 fL INTERFACE SYSTEM 10/05/2005 8:28 AM OBSERVATION ASSISTANT Wallace Anthony MD HEMATOLOGY ORDERABLE S Performing Organization Address [facility] [place] Phone Number INTERFACE SYSTEM Refer to clinic/hospital department * (ABNORMAL) COMPREHENSIVE METABOLIC PANEL (10/05/2005 8:28 AM OBSERVATION ASSISTANT) GLUCOSE 94 65 - 109 mg/dL INTERFACE SYSTEM CREATININE 0.7 0.4 - 1.2 mg/dL INTERFACE SYSTEM CALCIUM 9.1 8.6 - 10.2 mg/dL INTERFACE SYSTEM AST 26 12 - 32 U/L INTERFACE SYSTEM ALKALINE PHOSPHATASE 60 35 - 104 U/L INTERFACE SYSTEM BILIRUBIN TOTAL 0.2 0.2 - 1.0 mg/dL INTERFACE SYSTEM ALBUMIN 4.2 3.4 - 4.8 g/dL INTERFACE SYSTEM TOTAL PROTEIN 6.9 6.3 - 8.6 g/dL INTERFACE SYSTEM ALT 21 0 - 31 U/L INTERFACE SYSTEM BUN 23(H) 6 - 20 mg/dL INTERFACE SYSTEM SODIUM 142 135 - 145 mmol/L INTERFACE SYSTEM POTASSIUM 4.0 3.5 - 4.9 mmol/L INTERFACE SYSTEM CHLORIDE 107 96 - 108 mmol/L INTERFACE SYSTEM CO2 24 22 - 30 mmol/L INTERFACE SYSTEM 10/05/2005 8:28 AM OBSERVATION ASSISTANT Wallace Anthony MD CHEMISTRY ORDERABLES Performing Organization Address [facility] Phone Number INTERFACE SYSTEM Refer to clinic/hospital department * (ABNORMAL) CBC WITH DIFFERENTIAL (09/28/2005 2:20 PM OBSERVATION ASSISTANT) Pathologist [facility] NEUTROPHIL ABSOLUTE 1.56(L) 1.90 - 7.00 K/uL INTERFACE SYSTEM LYMPHOCYTE ABSOLUTE 1.12 0.70 - 4.50 K/uL INTERFACE SYSTEM MONOCYTE ABSOLUTE 0.65 0.10 - 1.30 K/uL INTERFACE SYSTEM EOSINOPHIL ABSOLUTE 0.03 0.00 - 0.70 K/uL INTERFACE SYSTEM BASOPHILS ABSOLUTE 0.00 0.00 - 0.20 K/uL INTERFACE SYSTEM NEUTROPHILS, SEG 45 45 - 70 % INT ERFACE SYSTEM BANDS 1 0 - 5 % INTERFACE SYSTEM LYMPHOCYTES 32 16 - 45 % INTERFAC E SYSTEM MONOCYTES 19(H) 3 - 13 % INTERFACE SYSTEM EOSINOPHILS 1 0 - 7 % INTERFAC E SYSTEM BASOPHILS 0 0 - 2 % INTERFACE SYSTEM MYELOCYTES 1(H) <=0 % INTERFACE SYSTEM ATYPICAL LYMPHOCYTE 1 0 - 5 % INTERFACE SYSTEM PLATELET EST. Normal Normal INTERF QUINN SYSTEM ANISOCYTOSIS Slight INTERFA CE SYSTEM 09/28/2005 2:20 PM OBSERVATION ASSISTANT Wallace Anthony MD HEMATOLOGY ORDERABLE S Performing Organization Address City/[facility] de Phone Number INTERFACE SYSTEM Refer to clinic/hospital department * (ABNORMAL) CBC WITH DIFFERENTIAL (09/28/2005 2:20 PM OBSERVATION ASSISTANT) WBC 3.4(L) 4.0 - 9.8 K/uL INTERFACE SYSTEM RBC 3.78(L) 3.90 - 4.90 M/uL INTERFACE SYSTEM HEMOGLOBIN 12.3 11.8 - 14.8 g/dL INTERFACE SYSTEM HEMATOCRIT 34.1(L) 35.5 - 44.0 % INTERFACE SYSTEM MCV 90.2 82.0 - 99.0 fL INTERFACE SYSTEM MCH 32.5 27.2 - 32.6 pg INTERFACE SYSTEM MCHC 36.1(H) 31.5 - 35.5 % INTERFACE SYSTEM RDW 12.1 11.5 - 14.5 % INTERFACE SYSTEM RDW-STDEV 38.6 37.1 - 48.7 fL INTERFACE SYSTEM PLATELETS 341 140 - 350 K/uL INTERFACE SYSTEM MPV 8.0(L) 9.3 - 12.4 fL INTERFACE SYSTEM 09/28/2005 2:20 PM OBSERVATION ASSISTANT Wallace Anthony MD HEMATOLOGY ORDERABLE S Performing Organization Address [facility] de Phone Number INTERFACE SYSTEM Refer to clinic/hospital department * (ABNORMAL) CBC WITH DIFFERENTIAL (09/14/2005 11:06 AM OBSERVATION ASSISTANT) NEUTROPHIL ABSOLUTE 3.06 1.90 - 7.00 K/uL INTERFACE SYSTEM LYMPHOCYTE ABSOLUTE 1.27 0.70 - 4.50 K/uL INTERFACE SYSTEM MONOCYTE ABSOLUTE 0.71 0.10 - 1.30 K/uL INTERFACE SYSTEM EOSINOPHIL ABSOLUTE 0.00 0.00 - 0.70 K/uL INTERFACE SYSTEM BASOPHILS ABSOLUTE 0.05 0.00 - 0.20 K/uL INTERFACE SYSTEM NEUTROPHILS, SEG 60 45 - 70 % INTERFACE SYSTEM LYMPHOCYTES 22 16 - 45 % INTERFAC E SYSTEM MONOCYTES 14(H) 3 - 13 % INTERFACE SYSTEM EOSINOPHILS 0 0 - 7 % INTERFAC E SYSTEM BASOPHILS 1 0 - 2 % INTERFACE SYSTEM ATYPICAL LYMPHOCYTE 3 0 - 5 % INTERFACE SYSTEM PLATELET EST. Slt. Increased( A) Normal INTERFACE SYSTEM RBC MORPHOLOGY Normal Normal INTER FACE SYSTEM TOXIC GRANULATION Slight INTERFACE SYSTEM 09/14/2005 11:0 6 AM OBSERVATION ASSISTANT Wallace Anthony MD HEMATOLOGY ORDERABLE S INTERFACE SYSTEM Refer to clinic/hospital department * (ABNORMAL) CBC WITH DIFFERENTIAL (09/14/2005 11:06 AM OBSERVATION ASSISTANT) WBC 5.1 4.0 - 9.8 K/uL INTERFACE SYSTEM RBC 3.97 3.90 - 4.90 M/uL INTERFACE SYSTEM HEMOGLOBIN 12.9 11.8 - 14.8 g/dL INTERFACE SYSTEM HEMATOCRIT 36.5 35.5 - 44.0 % INTERFACE SYSTEM MCV 91.9 82.0 - 99.0 fL INTERFACE SYSTEM MCH 32.5 27.2 - 32.6 pg INTERFACE SYSTEM MCHC 35.3 31.5 - 35.5 % INTERFACE SYSTEM RDW 12.9 11.5 - 14.5 % INTERFACE SYSTEM RDW-STDEV 42.1 37.1 - 48.7 fL INTERFACE SYSTEM PLATELETS 429(H) 140 - 350 K/uL INTERFACE SYSTEM MPV 8.7(L) 9.3 - 12.4 fL INTERFACE SYSTEM 09/14/2005 11:0 6 AM OBSERVATION ASSISTANT Wallace Anthony MD HEMATOLOGY ORDERABLE S Performing Organization Address [facility] de Phone Number INTERFACE SYSTEM Refer to clinic/hospital department documented in this encounter Visit Diagnoses Diagnosis Other malignant lymphomas, unspecified site, extranodal and solid organ sites- Primary documented in this encounter Care Teams Topographic Computator Relationship Specialty [place] [address] [place] [address] PCP - General 07/14/04 documented as of this encounter
--- OUTSIDE RECORDS SUMMARY | 2024-10-25 03:08 | XMS_ITS | Encounter Summary ---
Author Organization [facility] Address [address] [place] [address] Care Team Providers Care Supervisor Concrete Pipe Plant Name Role Phone Liberty Hernandez MD Primary Care Provider [phone] Reason for Visit * Reason Comments Finger laceration Patient arrives to E 23 d/t cutting her finger with a pocketknife. Patient takes daily ASA. Encounter Details Date Type Department Care Team (Late st Contact Info) Description 07/04/2019 2:08 AM CDT - 07/04/2019 4:14 AM CDT Emergency [facility] Emergency Department [address] [place] [address] Aretha Chaparro MD NO ADDRESS ON FILE Laceration of left index finger without foreign body without damage to nail, initial encounter (Primary Dx) Discharge Disposition: Home or Self Care Social History Tobacco Use Types Packs/Day Years Used Date Smoking Tobacco: Never Smokeless Tobacco: Never Alcohol Use Standard Drinks/Week Comments Yes 0 (1 standard drink = 0.6 oz pur e alcohol) drinks on weekends Sex and Gender Information Value Date Recorded Sex Assigned at Not on file Gender Identity Not on file Sexual Orientation Not on file documented as of this encounter Last Filed Vital Signs Vital Sign Reading [...] Mass Index 21.26 07/04/2019 2:13 AM CDT documented in this encounter Discharge Instructions * Discharge Instructions* Aretha Chaparro MD - 07/04/2019 3:26 AM CDT Leave the first dressing in place for 24-36 hours. Keep it clean and dry. Change the dressing if itgets dirty or wet. Then clean the laceration daily and apply a new dressing until healed. * Attachments The following attachments cannot be sent through Care Everywhere. * Hand Laceration: Stitches (Salvadorean) documented in this encounter Medications at Time of Discharge Medication Sig Dispensed Refills Start Date End Date evolocumab (REPATHA SURECLICK) 140 mg/mL Pen Injector Inject 140 mg by subcutaneous injection. raloxifene (EVISTA) 60 mg tablet Take 50 mg by mouth daily. ascorbic acid, vitamin C, (VITAMIN C) 100 mg Tablet Take 100 mg by mouth daily. cyanocobalamin (VITAMIN B-12) 100 mcg tablet Take 100 mcg by mouth daily. metoprolol succinate (TOPROL XL) 25 mg Extended Release 24 hour tablet Take 50 mg by mouth daily. 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 HYDROcodone-homatropine (HYCODAN) 5-1.5 mg Tablet Take 1 Tablet by mouth every 4 hours as needed for Cough. HYDROcodone-acetaminoph en (XODOL) 10-300 mg Tablet Take 0.5 Tablets by mouth every 4 hours as needed for Pain, Moderate. aspirin (NEREIDA CHEWABLE) 81 mg Tablet, Chewable Take 81 mg by mouth daily. documented as of this encounter ED Notes * Jane Patel RN - 07/04/2019 3:58 AM CDT Guardian at bedside * Jane Patel RN - 07/04/2019 3:02 AM CDT Patient medicated per JAN. Patient/family has been informed about benefits and any potential clinically significant side effects or other concerns regarding the administration of the drug they have just been given. MD Chaparro finished with suturing. Patient educated on holding pressure to stop bleeding. * Jane Patel RN - 07/04/2019 2:45 AM CDT Guardian contacted on behalf of patient * Jane Patel RN - 07/04/2019 2:41 AM CDT Pocketknife checked by security. * Jane Patel RN - 07/04/2019 2:21 AM CDT Patient arrives to ER 23 d/t cutting her finger with a pocketknife. Patient takes daily ASA. Picture of fingers uploaded to [employer]. Patient is Aox4, respirations even and unlabored, equal rise and fall of the chest. Patient's finger cleaned with sterile water. Suture tray set up for MD. * Aretha Chaparro MD - 07/04/2019 2:08 AM CDT Images from the original note were not included. Emergency Department Attending Physician Note History of Present Illness Primary Care Doctor: Liberty Hernandez MD Documented Triage Chief Complaint: Finger laceration Provider was at the bedside at 2:25 AM Jagdeep Barr is a 58 y.o. 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 Patient states she was at work and accidentally cut her finger with a pocket knife. She is right handed. Tetanus updated ~5 years ago, but patient is not certain. Onset: Sudden Severity: Mild Duration: Minutes Frequency/Progression: Unchanged Quality: None Radiation: N/A Modifiers: None Associated symptoms: None Patient information was obtained primarily from the patient. History/Exam limitations: None I reviewed prior records and noted a pertinent history of HTN. Relevant Medical History Past Medical History: Past Medical History: Diagnosis Date ??? Cancer lymphomia ??? HTN (hypertension) ??? S/P triple vessel bypass Past Surgical History: Past Surgical History: Procedure Laterality Date ??? HX HYSTERECTOMY Home Medications: Discharge Medication List as of 07/04/2019 3:26 AM CONTINUE these medications which have NOT CHANGED Details evolocumab (REPATHA SURECLICK) 140 mg/mL Pen Injector Inject 140 mg by subcutaneous injection. raloxifene (EVISTA) 60 mg tablet Take 50 mg by mouth daily. ascorbic acid, vitamin C, (VITAMIN C) 100 mg Tablet Take 100 mg by mouth daily. cyanocobalamin (VITAMIN B-12) 100 mcg tablet Take 100 mcg by mouth daily. metoprolol succinate (TOPROL XL) 25 mg Extended Release 24 hour tablet Take 50 mg by mouth daily. 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 HYDROcodone-homatropine (HYCODAN) 5-1.5 mg Tablet Take 1 Tablet by mouth every 4 hours as needed for Cough. HYDROcodone-acetaminophen (XODOL) 10-300 mg Tablet Take 0.5 Tablets by mouth every 4 hours as needed for Pain, Moderate. aspirin (NEREIDA CHEWABLE) 81 mg Tablet, Chewable Take 81 mg by mouth daily. Allergies: Patient has no known allergies. Social History: reports that she has never smoked. She has never used smokeless tobacco. She reports that she drinks alcohol. She reports that she does not use drugs. Family History: family history is not on file. Review of Systems ?? A comprehensive review of systems was completed. All other systems negative except as marked. ?? See HPI for additional ROS Constitutional: No fever, no chills ENT: No rhinorrhea, no sore throat Eyes: No vision change, no photophobia Respiratory: No cough, no shortness of breath Cardiac: No chest pain, no palpitations, no edema GI: No abdominal pain, no nausea, no vomiting, no diarrhea : No dysuria, no hematuria Musculoskeletal: No joint pain, no muscle aches Skin: No rash, + left index finger laceration Heme: No spontaneous bleeding, no bruising Neuro: No headache, no weakness, no numbness/tingling Psych: No hallucinations, no acute change in mood Physical Exam BP: 126/71 (07/04/19 0300), Pulse: 61 (07/04/19 0300), Resp: 18 (07/04/19212), Temp: 98.1 ??F (36.7 ??C) (07/04/19212), Temp src: Oral (07/04/19212) Constitutional: Alert, middle-aged female in mild discomfort HEENT: Normocephalic, atraumatic, PERRLA, EOMI, no throat erythema, mucous membranes moist Extremities: No edema, no calf tenderness, distal pulses intact V-shaped flat type 2 cm laceration to her left index finger along the dorsal radial side along the proximal phalanx. The extensor tendon is intact. Sensation intact to the tip of her finger. Motor 5/5 for flexion and extension at the MCP, PIP, and DIP joints. Pulses: 2+ radial = bilat Skin: No rash, no erythema Neuro: No facial droop, motor 5/5 for all extremities, sensation grossly intact to touch Psychiatric: Normal affect and mood Studies and Interpretation Pulse Oximetry Interpretation: Saturation: 99% Oxygen Delivery: Room Air Interpretation: No hypoxia at this time Imaging (all imaging was independently reviewed by me): No orders to display Lab: (Reviewed by me), Significant for: Medical Decision Making and ED Course Summary: 58 y.o. female who presented with a complaint of accidentally cutting her finger with a knife whileworking. Differential diagnosis: After reviewing triage note, vital signs, and my initial encounter/exam of the patient, I had considered at least at one time in the differential: finger laceration, tendon laceration, digital arteryinjury Plan: Will give tetanus vaccination and repair finger laceration --Laceration repaired. Patient is stable for discharge. Should follow up with occupational med in 1day for recheck and follow up for suture removal in 8-10 days. Updates Laceration repaired. Discussed wound care and f/u recommendations. ED provider and ED nurse verbally discussed patient plan of care. Medications Given Medications Administered During the ED Stay from 07/04/2019 0208 to 07/04/2019 0542 Date/Time Order Dose Route Action 07/04/2019 0245 lidocaine 2 % (XYLOCAINE) injection 5 mL 5 mL Infiltration Admin by Another Clinician (Comment) 07/04/2019 0300 tetanus and diphtheria toxoids and acellular pertussis vaccine PF (adult) (Tdap) (ADACEL) injection syringe 0.5 mL 0.5 mL IM Given Amount and/or Complexity of Data Reviewed --I reviewed the labs and/or radiology studies, vital signs, and nursing notes. I agree with the nursing notes except as noted in the body of this record. --Clinical lab tests: ordered and reviewed --Independent visualization of images, tracings, or specimens (including EKGs): yes --Previous electrocardiograms reviewed: no --Reviewed and summarized past medical records: yes --Discussed the patient with other providers: no Critical Care / Procedures Laceration Repair Procedure Note: Location: finger Length: 2 cm Shape: v-shaped Depth: clean appearing, through dermis Laceration repair: The wound area was anesthetized with Lidocaine 2% without epinephrine. The wound area was cleansed with povidone iodine, irrigated with sterile saline and draped in a sterile fashion. The wound was explored with the following results: No foreign bodies found. Wound edges revised/debrided: no The wound was repaired with 5-0 Nylon; 6 sutures were used. Suture technique used was interrupted and simple. The wound was repaired in one layer. Tetanus status: more than 5 years ago Laceration Care Plan: Suture removal in 8-10 days. No critical care time was provided for the patient. Disposition 2:58 AM: I updated the patient on findings, diagnosis, and plan for discharge. Any prescriptions given are listed below and they were instructed to follow up with the given provider. Pt agrees with the plan and is comfortable going home. The patient is clinically well; my impression is that, at this time, they are safe for discharge. I have spent time counseling the patient on their diagnosis, findings, results, and plan including strict return to the Emergency Dept instructions for this diagnosis and follow up as directed on the discharge instructions. Vitals at Discharge: BP 126/71 Pulse 61 Temp 98.1 ??F (36.7 ??C) (Oral) Resp 18 Ht 5' 3 (1.6 m) Wt 54.4 kg (120 lb) SpO2 98% BMI 21.26 kg/m?? New Prescriptions: Discharge Medication List as of 07/04/2019 3:26 AM CONTINUE these medications which have NOT CHANGED Details evolocumab (REPATHA SURECLICK) 140 mg/mL Pen Injector Inject 140 mg by subcutaneous injection. raloxifene (EVISTA) 60 mg tablet Take 50 mg by mouth daily. ascorbic acid, vitamin C, (VITAMIN C) 100 mg Tablet Take 100 mg by mouth daily. cyanocobalamin (VITAMIN B-12) 100 mcg tablet Take 100 mcg by mouth daily. metoprolol succinate (TOPROL XL) 25 mg Extended Release 24 hour tablet Take 50 mg by mouth daily. 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 HYDROcodone-homatropine (HYCODAN) 5-1.5 mg Tablet Take 1 Tablet by mouth every 4 hours as needed for Cough. HYDROcodone-acetaminophen (XODOL) 10-300 mg Tablet Take 0.5 Tablets by mouth every 4 hours as needed for Pain, Moderate. aspirin (NEREIDA CHEWABLE) 81 mg Tablet, Chewable Take 81 mg by mouth daily. Follow Up: [facility] Occupational Medicine [facility] [address] [place] [id number] Schedule an appointment as soon as possible for a visit with Occupational Medicine in 1 day (check with your boss at work for the correct doctor to see) and then follow up for suture removal in 8-10 days. Diagnosis: Encounter Diagnoses Code Name Primary? S61.211A Laceration of left index finger without foreign body without damage to nail, initial encounter Yes Disposition: Discharged Note: This H+P was created with the aid of dictation software, thus there may be some word substitutions or errors. This note has been prepared by Emely Alvarez acting as a scribe for Dr. Aretha Chaparro on 07/04/2019 at 3:30 AM. The scribe's documentation has been prepared under my direction and personally reviewed by me, Sury Chaparro MD, in its entirety on 07/04/19 at 5:42 AM. I confirm that the note above accurately reflects all work, treatment, procedures, and medical decision making performed by me. documented in this encounter Plan of Treatment Not on file documented as of this encounter Visit Diagnoses Diagnosis Laceration of left index finger without foreign body without damage to nail, initial encounter- Primary documented in this encounter Administered Medications Inactive Administered Medications - up to 3 most recent administrations Medication Order MAR Action Action Date Dose Rate Site lidocaine 2 % (XYLOCAINE) injection 5 mL 5 mL, Infiltration, ONE TIME ONLY, 1 dose, On Faye 07/04/19 at 0245, Routine Admin by Another Clinician (Comment) 07/04/2019 2:45 AM CDT 5 mL LIDOCAINE 20 MG/ML (2 %) INJECTION SOLUTION (CABINET OVERRIDE) 1 dose, Starting on Faye 07/04/19 at 0230, Until Faye 07/04/19 at 0245, Maksim CHERISELL: cabinet override documented in this encounter Active and Recently Administered Medications Times are shown in CDT. Scheduled Medication Order 07/02/2019 07/03/2019 07/04/2019 lidocaine 2 % (XYLOCAINE) injection 5 mL (COMPLETED) 5 mL, Infiltration, ONE TIME ONLY, 1 dose, On Faye 07/04/19 at 0245, Routine 0245 (Admin by [facility] Clinician (Comment) - Provider: Jane Patel RN) documented in this encounter Care Teams Supervisor [employer] Relationship Specialty [place] [address] [place] [address] PCP - General 07/14/04 documented as of this encounter
--- OUTSIDE RECORDS SUMMARY | 2024-10-25 03:08 | XMS_ITS | Encounter Summary ---
Author Organization [employer] Address [address] [place] [address] Care Team Providers Care Social Media Community Manager Name Role Phone Liberty Hernandez MD Primary Care Provider [phone] Encounter Details Date Type Department Care Team (Latest Contact Info) Description 06/08/2005 Outpatient Historical [facility] Wallace Anthony MD NO ADDRESS [...] as of this encounter Visit Diagnoses Diagnosis Other malignant lymphomas, unspecified site, extranodal and solid organ sites- Primary documented in this encounter Care Teams Social Media Community Manager Relationship Specialty [place] [address] [place] [address] PCP - General 07/14/04 documented as of this encounter
--- OUTSIDE RECORDS SUMMARY | 2024-10-25 03:08 | XMS_ITS | Encounter Summary ---
Author Organization [facility] Address [address] [place] [address] Care Team Providers Care Senior Net Developer Name Role Phone Liberty Hernandez MD Primary Care Provider [phone] Encounter Details Date Type Department Care Team (Late st Contact Info) Description 06/07/2006 Outpatient Historical [facility] Wallace Anthony MD NO ADDRESS ON FILE Social History Tobacco Use Types Packs/Day Years Used Date Smoking Tobacco: Never Assessed Sex and Gender Information Value Date Recorded Sex Assigned at Not on file Gender Identity Not on file Sexual Orientation Not on file documented as of this encounter Plan of Treatment Not on file documented as of this encounter Visit Diagnoses Not on filedocumented in this encounter Care Teams Senior Net Developer Relationship Specialty [place] [address] [place] [address] PCP - General 07/14/04 documented as of this encounter
--- OUTSIDE RECORDS SUMMARY | 2024-10-25 03:08 | XMS_ITS | Encounter Summary ---
Author Organization [facility] Address [address] [place] [address] Care Team Providers Care Director Airport Operations Name Role Phone Liberty Hernandez MD Primary Care Provider [phone] Encounter Details Date Type Department Care Team (Latest Contact Info) Description 12/27/2011 1:25 PM POLITICAL SCIENCE FACULTY MEMBER - 12/27/2011 11:59 PM POLITICAL SCIENCE FACULTY MEMBER Hospital Encounter [facility] Laboratory Services [facility] [address] [facility] [address] [place] [address] Wallace Anthony MD NO ADDRESS ON FILE Discharge Disposition: Home or Self Care Social [...] Date/Time Associated Diagnosis Comments CBC WITH DIFFERENTIAL Stat 12/27/2011 1:29 PM POLITICAL SCIENCE FACULTY MEMBER Lymphomas NEC extranodal/NOS COMPREHENSIVE METABOLIC PANEL Stat 12/27/2011 1:29 PM POLITICAL SCIENCE FACULTY MEMBER Lymphomas NEC extranodal/NOS documented in this encounter Results * COMPREHENSIVE METABOLIC PANEL (12/27/2011 1:29 PM POLITICAL SCIENCE FACULTY MEMBER) SODIUM 138 135 - 145 mmol/L [facility] POTASSIUM 4.1 3.5 - 4.9 mmol/L [facility] CHLORIDE 102 96 - 108 mmol/L [facility] CO2 27 22 - 30 mmol/L [facility] CALCIUM 9.7 8.6 - 10.2 mg/dL [facility] BUN 14 6 - 20 mg/dL [facility] CREATININE 0.66 0.51 - 0.95 mg/dL [facility] GLUCOSE 92 65 - 99 mg/dL [facility] TOTAL PROTEIN 7.5 6.3 - 8.6 g/dL [facility] ALBUMIN 4.8 3.4 - 4.8 g/dL [facility] BILIRUBIN TOTAL 0.4 0.2 - 1.0 mg/dL [facility] ALKALINE PHOSPHATASE 77 35 - 104 U/L [facility] AST 31 12 - 32 U/L [facility] ALT 23 0 - 31 U/L [facility] GFR, >60 >=60 mL/min/1. 7 sq meter [facility] GFR >60 >=60 mL/min/1. 7 sq meter [facility] Comment: GFR is calculated using the IDMS-Traceable Modification of Diet in Renal Disease (MDRD) Study formula and is only valid for patients 18 years or older. Further interpretative information is available in the Laboratory Services Policy Manual on the [facility] Intranet at: [email or web address]/ Blood specimen (specimen) 12/27/2011 1:29 PM POLITICAL SCIENCE FACULTY MEMBER 12/27/2011 1:46 PM POLITICAL SCIENCE FACULTY MEMBER Wallace Anthony MD CHEMISTRY ORDERABLES [facility] CLIA# [id number] [address] [place] [address] * (ABNORMAL) CBC WITH DIFFERENTIAL (12/27/2011 1:29 PM POLITICAL SCIENCE FACULTY MEMBER) WBC 6.1 4.0 - 9.8 K/uL [facility] RBC 3.95 3.90 - 4.90 M/uL [facility] HEMOGLOBIN 12.6 11.8 - 14.8 g/dL [facility] HEMATOCRIT 36.5 35.5 - 44.0 % [facility] MCV 92.4 82.0 - 99.0 fL [facility] MCH 31.9 27.2 - 32.6 pg [facility] MCHC 34.5 31.5 - 35.5 % [facility] PLATELETS 322 140 - 350 K/uL [facility] MPV 9.1(L) 9.3 - 12.4 fL [facility] RDW 12.3 11.5 - 14.5 % [facility] RDW-STDEV 42.1 37.1 - 48.7 fL [facility] NEUTROPHILS 46 45 - 70 % [facility] LYMPHOCYTES 42 16 - 45 % [facility] MONOCYTES 11 3 - 13 % [facility] EOSINOPHILS 1 0 - 7 % [facility] BASOPHILS 0 0 - 2 % [facility] NEUTROPHIL ABSOLUTE 2.81 1.90 - 7.00 K/uL [facility] LYMPHOCYTE ABSOLUTE 2.57 0.70 - 4.50 K/uL [facility] MONOCYTE ABSOLUTE 0.65 0.10 - 1.30 K/uL [facility] EOSINOPHIL ABSOLUTE 0.05 0.00 - 0.70 K/uL [facility] BASOPHILS ABSOLUTE 0.02 0.00 - 0.20 K/uL [facility] Blood specimen (specimen) 12/27/2011 1:29 PM POLITICAL SCIENCE FACULTY MEMBER 12/27/2011 1:37 PM POLITICAL SCIENCE FACULTY MEMBER Wallace Anthony MD HEMATOLOGY ORDERABLE S [facility] CLIA# [id number] [address] [place], [place] [address] documented in this encounter Visit Diagnoses Diagnosis Other malignant lymphomas, unspecified site, extranodal and solid organ sites documented in this encounter Care Teams Director Airport Operations Relationship Specialty [place] [address] [place] [address] PCP - General 07/14/04 documented as of this encounter
--- OUTSIDE RECORDS SUMMARY | 2024-10-25 03:08 | XMS_ITS | Encounter Summary ---
Author Organization [facility] Address [address] [place] [address] Care Team Providers Care Pastry Sous Chef Name Role Phone Liberty Hernandez MD Primary Care Provider [phone] Encounter Details Date Type Department Care Team (Late st Contact Info) Description 01/14/2007 Outpatient Historical [facility] Wallace Anthony MD [...] on filedocumented in this encounter Care Teams Pastry Sous Chef Relationship Specialty [place] [address] [place] [address] PCP - General 07/14/04 documented as of this encounter
--- OUTSIDE RECORDS SUMMARY | 2024-10-25 03:08 | XMS_ITS | Encounter Summary ---
Author Organization [facility] Address 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 Social History Tobacco Use Types Packs/Day Years [...] Associated Diagnosis Comments CBC WITH DIFFERENTIAL Stat 04/16/2008 1:55 PM CDT COMPREHENSIVE METABOLIC PANEL Stat 04/16/2008 1:55 PM CDT documented in this encounter Results * COMPREHENSIVE METABOLIC PANEL (04/16/2008 1:55 PM CDT) GLUCOSE 95 65 - 99 mg/dL [facility] AST 26 12 - 32 U/L [facility] BUN 18 6 - 20 mg/dL [facility] CO2 26 22 - 30 mmol/L [facility] CALCIUM 9.0 8.4 - 10.2 mg/dL [facility] ALBUMIN 4.6 3.4 - 4.8 g/dL [facility] CHLORIDE 103 96 - 108 mmol/L [facility] CREATININE 0.75 0.51 - 0.95 mg/dL [facility] ALT 17 0 - 31 U/L [facility] SODIUM 139 135 - 145 mmol/L [facility] ALKALINE PHOSPHATASE 70 35 - 104 U/L [facility] BILIRUBIN TOTAL 0.2 0.2 - 1.0 mg/dL [facility] POTASSIUM 3.6 3.5 - 4.9 mmol/L [facility] TOTAL PROTEIN 7.0 6.3 - 8.6 g/dL [facility] GFR, >60 >=60 mL/min/1.7 sq meter [facility] GFR >60 >=60 mL/min/1.7 sq meter [facility] Comment: Modification of Diet in Renal Disease (MDRD) study formula. Estimated GFR rate interpretative information for both Americans and non- Americans is available on the [facility] Intranet at: [email or web address] Select: Lab Policies and Procedures Select: Reference Ranges - GFR Blood specimen (specimen) 04/16/2008 1:55 PM CDT 04/16/2008 2:11 PM CDT Wallace Anthony MD CHEMISTRY ORDERABLES [facility] CLIA# [id number] [address] [place] [address] * (ABNORMAL) CBC WITH DIFFERENTIAL (04/16/2008 1:55 PM CDT) HEMOGLOBIN 12.9 11.8 - 14.8 g/dL [facility] RDW 12.2 11.5 - 14.5 % [facility] WBC 6.9 4.0 - 9.8 K/uL [facility] MCH 32.8(H) 27.2 - 32.6 pg [facility] MPV 9.2(L) 9.3 - 12.4 fL [facility] HEMATOCRIT 36.5 35.5 - 44.0 % [facility] RDW-STDEV 40.2 37.1 - 48.7 fL [facility] RBC 3.93 3.90 - 4.90 M/uL [facility] MCHC 35.3 31.5 - 35.5 % [facility] MCV 92.9 82.0 - 99.0 fL [facility] PLATELETS 326 140 - 350 K/uL [facility] BASOPHILS 0 0 - 2 % [facility] LYMPHOCYTES 27 16 - 45 % [facility] BASOPHILS ABSOLUTE 0.02 0.00 - 0.20 K/uL [facility] MONOCYTE ABSOLUTE 0.81 0.10 - 1.30 K/uL [facility] NEUTROPHIL ABSOLUTE 4.14 1.90 - 7.00 K/uL [facility] MONOCYTES 12 3 - 13 % [facility] EOSINOPHILS 1 0 - 7 % [facility] EOSINOPHIL ABSOLUTE 0.05 0.00 - 0.70 K/uL [facility] NEUTROPHILS 60 45 - 70 % [facility] LYMPHOCYTE ABSOLUTE 1.89 0.70 - 4.50 K/uL [facility] Blood specimen (specimen) 04/16/2008 1:55 PM CDT 04/16/2008 2:15 PM CDT Wallace Antohny MD HEMATOLOGY ORDERABLE S INTERFACE SYSTEM Refer to clinic/hospital department [facility] CLIA# [id number] [address] [place] [address] documented in this encounter Visit Diagnoses Diagnosis 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
--- OUTSIDE RECORDS SUMMARY | 2024-10-25 03:08 | XMS_ITS | Encounter Summary ---
Author Organization [email or web address] [facility] Address [address] [place] [address] Care Team Providers Care Teacher Asst Name Role Phone Liberty Hernandez MD Primary Care Provider [phone] Encounter Details Date Type Department Care Team (Latest Contact Info) Description 07/01/2009 Outpatient Historical [facility] Wallace Anthony [...] Associated Diagnosis Comments CBC WITH DIFFERENTIAL Stat 07/01/2009 9:26 AM CDT COMPREHENSIVE METABOLIC PANEL Stat 07/01/2009 9:26 AM CDT documented in this encounter Results * COMPREHENSIVE METABOLIC PANEL (07/01/2009 9:26 AM CDT) POTASSIUM 3.9 3.5 - 4.9 mmol/L [facility] TOTAL PROTEIN 6.7 6.3 - 8.6 g/dL [facility] GLUCOSE 65 65 - 99 mg/dL [facility] AST 26 12 - 32 U/L [facility] BUN 17 6 - 20 mg/dL [facility] CALCIUM 9.6 8.6 - 10.2 mg/dL [facility] ALBUMIN 4.2 3.4 - 4.8 g/dL [facility] CHLORIDE 104 96 - 108 mmol/L [facility] CREATININE 0.70 0.51 - 0.95 mg/dL [facility] ALT 18 0 - 31 U/L [facility] SODIUM 138 135 - 145 mmol/L [facility] ALKALINE PHOSPHATASE 55 35 - 104 U/L [facility] CO2 25 22 - 30 mmol/L [facility] BILIRUBIN TOTAL 0.2 0.2 - 1.0 mg/dL [facility] GFR, >60 >=60 mL/min/1.7 sq meter [facility] GFR >60 >=60 mL/min/1.7 sq meter [facility] Comment: Modification of Diet in Renal Disease (MDRD) study formula. Estimated GFR rate interpretative information for both Americans and non- Americans is available on the [facility] Intranet at: [email or web address] for womenPunch [email or web address] Social/[email or web address] Select: Lab Policies and Procedures Select: Reference Ranges - GFR Blood specimen (specimen) 07/01/2009 9:26 AM CDT 07/01/2009 9:26 AM CDT Wallace Anthony MD CHEMISTRY ORDERABLES [facility] CLIA# [id number] [address] [place] [address] * (ABNORMAL) CBC WITH DIFFERENTIAL (07/01/2009 9:26 AM CDT) HEMATOCRIT 35.7 35.5 - 44.0 % [facility] RDW-STDEV 41.7 37.1 - 48.7 fL [facility] RBC 3.83(L) 3.90 - 4.90 M/uL [facility] MCHC 34.2 31.5 - 35.5 % [facility] MCV 93.2 82.0 - 99.0 fL [facility] PLATELETS 274 140 - 350 K/uL [facility] HEMOGLOBIN 12.2 11.8 - 14.8 g/dL [facility] RDW 12.3 11.5 - 14.5 % [facility] WBC 4.8 4.0 - 9.8 K/uL [facility] MCH 31.9 27.2 - 32.6 pg [facility] MPV 9.1(L) 9.3 - 12.4 fL [facility] LYMPHOCYTES 34 16 - 45 % [facility] LYMPHOCYTE ABSOLUTE 1.62 0.70 - 4.50 K/uL [facility] BASOPHILS 0 0 - 2 % [facility] BASOPHILS ABSOLUTE 0.02 0.00 - 0.20 K/uL [facility] MONOCYTES 11 3 - 13 % [facility] MONOCYTE ABSOLUTE 0.54 0.10 - 1.30 K/uL [facility] NEUTROPHILS 54 45 - 70 % [facility] NEUTROPHIL ABSOLUTE 2.60 1.90 - 7.00 K/uL [facility] EOSINOPHILS 1 0 - 7 % [facility] EOSINOPHIL ABSOLUTE 0.05 0.00 - 0.70 K/uL [facility] Blood specimen (specimen) 07/01/2009 9:26 AM CDT 07/01/2009 9:26 AM CDT Wallace Anthony MD HEMATOLOGY ORDERABLE S [facility] CLIA# [id number] [address] [place] [address] documented in this encounter Visit Diagnoses Diagnosis 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
--- OUTSIDE RECORDS SUMMARY | 2024-10-25 03:08 | XMS_ITS | Encounter Summary ---
Author Organization [employer] [facility] Address [address] [place] [address] Care Team Providers Care Psychiatry Adult Physician Name Role Phone Liberty Hernandez MD Primary Care Provider [phone] Encounter Details Date Type Department Care Team (Latest Contact Info) Description 12/13/2006 Outpatient Historical [facility] Wallace Anthony MD NO ADDRESS ON FILE Lymphomas NEC Extranodal/NOS (Primary Dx) Social History Tobacco Use Types [...] Associated Diagnosis Comments CBC WITH DIFFERENTIAL Routine 12/20/2006 8:44 AM THREADING MACHINE SETTER CBC WITH DIFFERENTIAL Routine 12/20/2006 8:44 AM THREADING MACHINE SETTER COMPREHENSIVE METABOLIC PANEL Routine 12/20/2006 8:44 AM THREADING MACHINE SETTER documented in this encounter Results * (ABNORMAL) CBC WITH DIFFERENTIAL (12/20/2006 8:44 AM THREADING MACHINE SETTER) NEUTROPHILS 57 45 - 70 % INTERFAC E SYSTEM LYMPHOCYTES 24 16 - 45 % INTERFAC E SYSTEM MONOCYTES 17(H) 3 - 13 % INTERFACE SYSTEM EOSINOPHILS 2 0 - 7 % INTERFAC E SYSTEM BASOPHILS 0 0 - 2 % INTERFACE SYSTEM NEUTROPHIL ABSOLUTE 2.13 1.90 - 7.00 K/uL INTERFACE SYSTEM LYMPHOCYTE ABSOLUTE 0.90 0.70 - 4.50 K/uL INTERFACE SYSTEM MONOCYTE ABSOLUTE 0.63 0.10 - 1.30 K/uL INTERFACE SYSTEM EOSINOPHIL ABSOLUTE 0.07 0.00 - 0.70 K/uL INTERFACE SYSTEM BASOPHILS ABSOLUTE 0.01 0.00 - 0.20 K/uL INTERFACE SYSTEM 12/20/2006 8:44 AM THREADING MACHINE SETTER Wallace Anthony MD HEMATOLOGY ORDERABLE S Performing Organization Address [facility] Phone Number INTERFACE SYSTEM Refer to clinic/hospital department * (ABNORMAL) CBC WITH DIFFERENTIAL (12/20/2006 8:44 AM THREADING MACHINE SETTER) WBC 3.7(L) 4.0 - 9.8 K/uL INTERFACE SYSTEM RBC 4.11 3.90 - 4.90 M/uL INTERFACE SYSTEM HEMOGLOBIN 13.0 11.8 - 14.8 g/dL INTERFACE SYSTEM HEMATOCRIT 37.2 35.5 - 44.0 % INTERFACE SYSTEM MCV 90.5 82.0 - 99.0 fL INTERFACE SYSTEM MCH 31.6 27.2 - 32.6 pg INTERFACE SYSTEM MCHC 34.9 31.5 - 35.5 % INTERFACE SYSTEM RDW 12.3 11.5 - 14.5 % INTERFACE SYSTEM RDW-STDEV 39.9 37.1 - 48.7 fL INTERFACE SYSTEM PLATELETS 327 140 - 350 K/uL INTERFACE SYSTEM MPV 8.9(L) 9.3 - 12.4 fL INTERFACE SYSTEM 12/20/2006 8:44 AM THREADING MACHINE SETTER Wallace Anthony MD HEMATOLOGY ORDERABLE S Performing Organization Address [facility] Phone Number INTERFACE SYSTEM Refer to clinic/hospital department * COMPREHENSIVE METABOLIC PANEL (12/20/2006 8:44 AM THREADING MACHINE SETTER) GLUCOSE 80 65 - 99 mg/dL INTERFACE SYSTEM CREATININE 0.62 0.51 - 0.95 mg/dL INTERFACE SYSTEM CALCIUM 9.1 8.4 - 10.2 mg/dL INTERFACE SYSTEM ALKALINE PHOSPHATASE 81 35 - 104 U/L INTERFACE SYSTEM AST 23 12 - 32 U/L INTERFACE SYSTEM ALT 18 0 - 31 U/L INTERFACE SYSTEM TOTAL PROTEIN 7.0 6.3 - 8.6 g/dL INTERFACE SYSTEM ALBUMIN 4.3 3.4 - 4.8 g/dL INTERFACE SYSTEM BILIRUBIN TOTAL 0.3 0.2 - 1.0 mg/dL INTERFACE SYSTEM BUN 16 6 - 20 mg/dL INTERFACE SYSTEM SODIUM 143 135 - 145 mmol/L INTERFACE SYSTEM POTASSIUM 3.9 3.5 - 4.9 mmol/L INTERFACE SYSTEM CHLORIDE 107 96 - 108 mmol/L INTERFACE SYSTEM CO2 27 22 - 30 mmol/L INTERFACE SYSTEM GFR, >60 >=60 mL/min/1.7 sq meter INTERFACE SYSTEM GFR >60 >=60 mL/min/1.7 sq meter INTERFACE SYSTEM Comment: Estimated GFR rate interpretative information for both Americans and non- Americans is available on the [facility] Intranet at: [email or web address] Select: Lab Policies and Procedures Select: Reference Ranges - GFR 12/20/2006 8:44 AM THREADING MACHINE SETTER Wallace Anthony MD CHEMISTRY ORDERABLES INTERFACE SYSTEM Refer to clinic/hospital department documented in this encounter Visit Diagnoses Diagnosis Other malignant lymphomas, unspecified site, extranodal and solid organ sites- Primary documented in this encounter Care Teams Psychiatry Adult Physician Relationship Specialty [place] [address] [place] [address] PCP - General 07/14/04 documented as of this encounter
--- OUTSIDE RECORDS SUMMARY | 2024-10-25 03:08 | XMS_ITS | Encounter Summary ---
Author Organization [email or web address] Address [address] [place] [address] Care Team Providers Care Line Maintainer Section Name Role Phone Liberty Hernandez MD Primary Care Provider [phone] Encounter Details Date Type Department Care Team (Late st Contact Info) Description 07/14/2004 Outpatient Historical [facility] Ant Bowling MD [address] [address] ENLARGEMENT LYMPH NODES (Primary Dx) Social History Tobacco Use Types Packs/Day Years Used Date Smoking Tobacco: Never Assessed Sex and Gender Information Value Date Recorded Sex Assigned at Not on file Gender Identity Not on file Sexual Orientation Not on file documented as of this encounter Plan of Treatment Not on file documented as of this encounter Visit Diagnoses Diagnosis Enlargement of lymph nodes- Primary documented in this encounter Care Teams Line Maintainer Section Relationship Specialty [place] [address] [place] [address] PCP - General 07/14/04 documented as of this encounter
--- OUTSIDE RECORDS SUMMARY | 2024-10-25 03:08 | XMS_ITS | Encounter Summary ---
Author Organization [facility] Address [address] [place] [address] Care Team Providers Care Supervisor Wet End Name Role Phone Liberty Hernandez MD Primary Care Provider [phone] Encounter Details Date Type Department Care Team (Latest Contact Info) Description 12/22/2008 Outpatient Historical [facility] Wallace Anthony [...] Associated Diagnosis Comments CBC WITH DIFFERENTIAL Stat 12/22/2008 3:01 PM UTILITY PERSON COMPREHENSIVE METABOLIC PANEL Stat 12/22/2008 3:01 PM UTILITY PERSON documented in this encounter Results * COMPREHENSIVE METABOLIC PANEL (12/22/2008 3:01 PM UTILITY PERSON) GLUCOSE 96 65 - 99 mg/dL [facility] AST 32 12 - 32 U/L [facility] BUN 14 6 - 20 mg/dL [facility] CALCIUM 9.5 8.6 - 10.2 mg/dL [facility] ALBUMIN 4.4 3.4 - 4.8 g/dL [facility] CHLORIDE 100 96 - 108 mmol/L [facility] CREATININE 0.71 0.51 - 0.95 mg/dL [facility] ALT 24 0 - 31 U/L [facility] SODIUM 136 135 - 145 mmol/L [facility] ALKALINE PHOSPHATASE 70 35 - 104 U/L [facility] CO2 30 22 - 30 mmol/L [facility] BILIRUBIN TOTAL 0.2 0.2 - 1.0 mg/dL [facility] POTASSIUM 3.5 3.5 - 4.9 mmol/L [facility] TOTAL PROTEIN 7.1 6.3 - 8.6 g/dL [facility] GFR, >60 >=60 mL/min/1.7 sq meter [facility] GFR >60 >=60 mL/min/1.7 sq meter [facility] Comment: Modification of Diet in Renal Disease (MDRD) study formula. Estimated GFR rate interpretative information for both Americans and non- Americans is available on the [facility] [place], [place] Intranet at: [email or web address] Select: Lab Policies and Procedures Select: Reference Ranges - GFR Blood specimen (specimen) 12/22/2008 3:01 PM UTILITY PERSON 12/22/2008 3:02 PM UTILITY PERSON Wallace Anthony MD CHEMISTRY ORDERABLES INTERFACE SYSTEM Refer to clinic/hospital department [facility] CLIA# [id number] [address] [place], [place] [address] * (ABNORMAL) CBC WITH DIFFERENTIAL (12/22/2008 3:01 PM UTILITY PERSON) HEMATOCRIT 34.4(L) 35.5 - 44.0 % [facility] RDW-STDEV 40.0 37.1 - 48.7 fL [facility] RBC 3.82(L) 3.90 - 4.90 M/uL [facility] MCHC 35.5 31.5 - 35.5 % [facility] MCV 90.1 82.0 - 99.0 fL [facility] PLATELETS 285 140 - 350 K/uL [facility] HEMOGLOBIN 12.2 11.8 - 14.8 g/dL [facility] RDW 12.3 11.5 - 14.5 % [facility] WBC 6.6 4.0 - 9.8 K/uL [facility] MCH 31.9 27.2 - 32.6 pg [facility] MPV 8.8(L) 9.3 - 12.4 fL [facility] BASOPHILS ABSOLUTE 0.03 0.00 - 0.20 K/uL [facility] MONOCYTES 13 3 - 13 % [facility] MONOCYTE ABSOLUTE 0.87 0.10 - 1.30 K/uL [facility] NEUTROPHILS 47 45 - 70 % [facility] NEUTROPHIL ABSOLUTE 3.13 1.90 - 7.00 K/uL [facility] EOSINOPHILS 1 0 - 7 % [facility] EOSINOPHIL ABSOLUTE 0.08 0.00 - 0.70 K/uL [facility] LYMPHOCYTES 38 16 - 45 % [facility] LYMPHOCYTE ABSOLUTE 2.51 0.70 - 4.50 K/uL [facility] BASOPHILS 1 0 - 2 % [facility] Blood specimen (specimen) 12/22/2008 3:01 PM UTILITY PERSON 12/22/2008 3:02 PM UTILITY PERSON Wallace Anthony MD HEMATOLOGY ORDERABLE S INTERFACE SYSTEM Refer to clinic/hospital department [facility] CLIA# [id number] [address] [place] [address] documented in this encounter Visit Diagnoses Diagnosis 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
--- OUTSIDE RECORDS SUMMARY | 2024-10-25 03:08 | XMS_ITS | Encounter Summary ---
Author Organization [facility] Address [address] [place] [address] Care Team Providers Care Mechanic Sound Technician Name Role Phone Liberty Hernandez MD Primary Care Provider [phone] Encounter Details Date Type Department Care Team (Late st Contact Info) Description 11/16/2005 Outpatient Historical [facility] Wallace Anthony MD NO ADDRESS [...] on filedocumented in this encounter Care Teams Mechanic Sound Technician Relationship Specialty [place] [address] [place] [address] PCP - General 07/14/04 documented as of this encounter
--- OUTSIDE RECORDS SUMMARY | 2024-10-25 03:08 | XMS_ITS | Encounter Summary ---
Author Organization [employer] [facility] Address [address] [place] [address] Care Team Providers Care Irrigation Equipment Installer Name Role Phone Liberty Hernandez MD Primary Care Provider [phone] Encounter Details Date Type Department Care Team (Latest Contact Info) Description 06/07/2006 Outpatient Historical [facility] Wallace Anthony [...] Associated Diagnosis Comments CBC WITH DIFFERENTIAL Routine 06/14/2006 10:26 AM CDT CBC WITH DIFFERENTIAL Routine 06/14/2006 10:26 AM CDT COMPREHENSIVE METABOLIC PANEL Routine 06/14/2006 10:26 AM CDT documented in this encounter Results * (ABNORMAL) CBC WITH DIFFERENTIAL (06/14/2006 10:26 AM CDT) NEUTROPHILS 76(H) 45 - 70 % INTERFAC E SYSTEM LYMPHOCYTES 10(L) 16 - 45 % INTERFAC E SYSTEM MONOCYTES 13 3 - 13 % INTERFACE SYSTEM EOSINOPHILS 1 0 - 7 % INTERFAC E SYSTEM BASOPHILS 1 0 - 2 % INTERFACE SYSTEM NEUTROPHIL ABSOLUTE 4.80 1.90 - 7.00 K/uL INTERFACE SYSTEM LYMPHOCYTE ABSOLUTE 0.64(L) 0.70 - 4.50 K/uL INTERFACE SYSTEM MONOCYTE ABSOLUTE 0.84 0.10 - 1.30 K/uL INTERFACE SYSTEM EOSINOPHIL ABSOLUTE 0.04 0.00 - 0.70 K/uL INTERFACE SYSTEM BASOPHILS ABSOLUTE 0.03 0.00 - 0.20 K/uL INTERFACE SYSTEM 06/14/2006 10:2 6 AM CDT Wallace Anthony MD HEMATOLOGY ORDERABLE S Performing Organization Address [facility] de Phone Number INTERFACE SYSTEM Refer to clinic/hospital department * (ABNORMAL) CBC WITH DIFFERENTIAL (06/14/2006 10:26 AM CDT) WBC 6.4 4.0 - 9.8 K/uL INTERFACE SYSTEM RBC 4.27 3.90 - 4.90 M/uL INTERFACE SYSTEM HEMOGLOBIN 14.0 11.8 - 14.8 g/dL INTERFACE SYSTEM HEMATOCRIT 38.1 35.5 - 44.0 % INTERFACE SYSTEM MCV 89.2 82.0 - 99.0 fL INTERFACE SYSTEM MCH 32.8(H) 27.2 - 32.6 pg INTERFACE SYSTEM MCHC 36.7(H) 31.5 - 35.5 % INTERFACE SYSTEM RDW 12.1 11.5 - 14.5 % INTERFACE SYSTEM RDW-STDEV 39.3 37.1 - 48.7 fL INTERFACE SYSTEM PLATELETS 316 140 - 350 K/uL INTERFACE SYSTEM MPV 9.2(L) 9.3 - 12.4 fL INTERFACE SYSTEM 06/14/2006 10:2 6 AM CDT Wallace Anthony MD HEMATOLOGY ORDERABLE S Performing Organization Address [facility] de Phone Number INTERFACE SYSTEM Refer to clinic/hospital department * (ABNORMAL) COMPREHENSIVE METABOLIC PANEL (06/14/2006 10:26 AM CDT) GLUCOSE 75 65 - 99 mg/dL INTERFACE SYSTEM CREATININE 0.8 0.4 - 1.2 mg/dL INTERFACE SYSTEM CALCIUM 9.8 8.6 - 10.2 mg/dL INTERFACE SYSTEM ALKALINE PHOSPHATASE 97 35 - 104 U/L INTERFACE SYSTEM AST 29 12 - 32 U/L INTERFACE SYSTEM ALT 19 0 - 31 U/L INTERFACE SYSTEM TOTAL PROTEIN 7.8 6.3 - 8.6 g/dL INTERFACE SYSTEM ALBUMIN 4.9(H) 3.4 - 4.8 g/dL INTERFACE SYSTEM BILIRUBIN TOTAL 0.4 0.2 - 1.0 mg/dL INTERFACE SYSTEM BUN 11 6 - 20 mg/dL INTERFACE SYSTEM SODIUM 140 135 - 145 mmol/L INTERFACE SYSTEM POTASSIUM 4.0 3.5 - 4.9 mmol/L INTERFACE SYSTEM CHLORIDE 103 96 - 108 mmol/L INTERFACE SYSTEM CO2 27 22 - 30 mmol/L INTERFACE SYSTEM 06/14/2006 10:2 6 AM CDT Wallace Anthony MD CHEMISTRY ORDERABLES INTERFACE SYSTEM Refer to clinic/hospital department documented in this encounter Visit Diagnoses Diagnosis Other malignant lymphomas, unspecified site, extranodal and solid organ sites- Primary documented in this encounter Care Teams Irrigation Equipment Installer Relationship Specialty [place] [address] [place] [address] PCP - General 07/14/04 documented as of this encounter
--- OUTSIDE RECORDS SUMMARY | 2024-10-25 03:08 | XMS_ITS | Encounter Summary ---
Author Organization [employer] [facility] Address [address] [place] [address] Care Team Providers Care Educational Administrator Name Role Phone Liberty Hernandez MD Primary Care Provider [phone] Encounter Details Date Type Department Care Team (Latest Contact Info) Description 08/12/2005 Outpatient Historical [facility] Wallace Anthony [...] Associated Diagnosis Comments CBC WITH DIFFERENTIAL Routine 09/07/2005 9:17 AM INSTRUCTOR WEAVING CBC WITH DIFFERENTIAL Routine 09/07/2005 9:17 AM INSTRUCTOR WEAVING COMPREHENSIVE METABOLIC PANEL Routine 09/07/2005 9:17 AM INSTRUCTOR WEAVING CBC WITH DIFFERENTIAL Routine 08/24/2005 8:02 AM CDT CBC WITH DIFFERENTIAL Routine 08/24/2005 8:02 AM CDT CBC WITH DIFFERENTIAL Routine 08/17/2005 8:22 AM CDT CBC WITH DIFFERENTIAL Routine 08/17/2005 8:22 AM CDT documented in this encounter Results * (ABNORMAL) CBC WITH DIFFERENTIAL (09/07/2005 9:17 AM INSTRUCTOR WEAVING) NEUTROPHILS 56 45 - 70 % INTERFAC E SYSTEM LYMPHOCYTES 19 16 - 45 % INTERFAC E SYSTEM MONOCYTES 22(H) 3 - 13 % INTERFACE SYSTEM EOSINOPHILS 2 0 - 7 % INTERFAC E SYSTEM BASOPHILS 1 0 - 2 % INTERFACE SYSTEM NEUTROPHIL ABSOLUTE 2.49 1.90 - 7.00 K/uL INTERFACE SYSTEM LYMPHOCYTE ABSOLUTE 0.85 0.70 - 4.50 K/uL INTERFACE SYSTEM MONOCYTE ABSOLUTE 0.98 0.10 - 1.30 K/uL INTERFACE SYSTEM EOSINOPHIL ABSOLUTE 0.08 0.00 - 0.70 K/uL INTERFACE SYSTEM BASOPHILS ABSOLUTE 0.03 0.00 - 0.20 K/uL INTERFACE SYSTEM 09/07/2005 9:17 AM INSTRUCTOR WEAVING Wallace Anthony MD HEMATOLOGY ORDERABLE S Performing Organization Address [facility] Phone Number INTERFACE SYSTEM Refer to clinic/hospital department * (ABNORMAL) CBC WITH DIFFERENTIAL (09/07/2005 9:17 AM INSTRUCTOR WEAVING) WBC 4.4 4.0 - 9.8 K/uL INTERFACE SYSTEM RBC 3.93 3.90 - 4.90 M/uL INTERFACE SYSTEM HEMOGLOBIN 12.8 11.8 - 14.8 g/dL INTERFACE SYSTEM HEMATOCRIT 36.4 35.5 - 44.0 % INTERFACE SYSTEM MCV 92.6 82.0 - 99.0 fL INTERFACE SYSTEM MCH 32.6 27.2 - 32.6 pg INTERFACE SYSTEM MCHC 35.2 31.5 - 35.5 % INTERFACE SYSTEM RDW 13.1 11.5 - 14.5 % INTERFACE SYSTEM RDW-STDEV 43.0 37.1 - 48.7 fL INTERFACE SYSTEM PLATELETS 385(H) 140 - 350 K/uL INTERFACE SYSTEM MPV 8.3(L) 9.3 - 12.4 fL INTERFACE SYSTEM 09/07/2005 9:17 AM INSTRUCTOR WEAVING Wallace Anthony MD HEMATOLOGY ORDERABLE S Performing Organization Address [facility] de Phone Number INTERFACE SYSTEM Refer to clinic/hospital department * (ABNORMAL) COMPREHENSIVE METABOLIC PANEL (09/07/2005 9:17 AM INSTRUCTOR WEAVING) GLUCOSE 64(L) 65 - 109 mg/dL INTERFACE SYSTEM CREATININE 0.6 0.4 - 1.2 mg/dL INTERFACE SYSTEM CALCIUM 9.8 8.6 - 10.2 mg/dL INTERFACE SYSTEM AST 59(H) 12 - 32 U/L INTERFACE SYSTEM ALKALINE PHOSPHATASE 65 35 - 104 U/L INTERFACE SYSTEM BUN 11 6 - 20 mg/dL INTERFACE SYSTEM BILIRUBIN TOTAL 0.4 0.2 - 1.0 mg/dL INTERFACE SYSTEM ALBUMIN 4.4 3.4 - 4.8 g/dL INTERFACE SYSTEM TOTAL PROTEIN 7.2 6.3 - 8.6 g/dL INTERFACE SYSTEM ALT 51(H) 0 - 31 U/L INTERFACE SYSTEM SODIUM 142 135 - 145 mmol/L INTERFACE SYSTEM POTASSIUM 3.9 3.5 - 4.9 mmol/L INTERFACE SYSTEM CHLORIDE 104 96 - 108 mmol/L INTERFACE SYSTEM CO2 31(H) 22 - 30 mmol/L INTERFACE SYSTEM 09/07/2005 9:17 AM INSTRUCTOR WEAVING Wallace Anthony MD CHEMISTRY ORDERABLES Performing Organization Address [facility] Phone Number INTERFACE SYSTEM Refer to clinic/hospital department * (ABNORMAL) CBC WITH DIFFERENTIAL (08/24/2005 8:02 AM CDT) NEUTROPHILS 63 45 - 70 % INTERFAC E SYSTEM LYMPHOCYTES 16 16 - 45 % INTERFAC E SYSTEM MONOCYTES 20(H) 3 - 13 % INTERFACE SYSTEM EOSINOPHILS 1 0 - 7 % INTERFAC E SYSTEM BASOPHILS 0 0 - 2 % INTERFACE SYSTEM NEUTROPHIL ABSOLUTE 3.10 1.90 - 7.00 K/uL INTERFACE SYSTEM LYMPHOCYTE ABSOLUTE 0.77 0.70 - 4.50 K/uL INTERFACE SYSTEM MONOCYTE ABSOLUTE 1.00 0.10 - 1.30 K/uL INTERFACE SYSTEM EOSINOPHIL ABSOLUTE 0.07 0.00 - 0.70 K/uL INTERFACE SYSTEM BASOPHILS ABSOLUTE 0.02 0.00 - 0.20 K/uL INTERFACE SYSTEM 08/24/2005 8:02 AM CDT Wallace Anthony MD HEMATOLOGY ORDERABLE S Performing Organization Address [facility] Phone Number INTERFACE SYSTEM Refer to clinic/hospital department * (ABNORMAL) CBC WITH DIFFERENTIAL (08/24/2005 8:02 AM CDT) WBC 5.0 4.0 - 9.8 K/uL INTERFACE SYSTEM RBC 3.95 3.90 - 4.90 M/uL INTERFACE SYSTEM HEMOGLOBIN 13.1 11.8 - 14.8 g/dL INTERFACE SYSTEM HEMATOCRIT 36.4 35.5 - 44.0 % INTERFACE SYSTEM MCV 92.2 82.0 - 99.0 fL INTERFACE SYSTEM MCH 33.2(H) 27.2 - 32.6 pg INTERFACE SYSTEM MCHC 36.0(H) 31.5 - 35.5 % INTERFACE SYSTEM RDW 12.9 11.5 - 14.5 % INTERFACE SYSTEM RDW-STDEV 42.8 37.1 - 48.7 fL INTERFACE SYSTEM PLATELETS 369(H) 140 - 350 K/uL INTERFACE SYSTEM MPV 8.5(L) 9.3 - 12.4 fL INTERFACE SYSTEM 08/24/2005 8:02 AM CDT Wallace Anthony MD HEMATOLOGY ORDERABLE S Performing Organization Address [facility] Phone Number INTERFACE SYSTEM Refer to clinic/hospital department * (ABNORMAL) CBC WITH DIFFERENTIAL (08/17/2005 8:22 AM CDT) Pathologist [facility] NEUTROPHILS 45 45 - 70 % INTERFAC E SYSTEM LYMPHOCYTES 28 16 - 45 % INTERFAC E SYSTEM MONOCYTES 24(H) 3 - 13 % INTERFACE SYSTEM EOSINOPHILS 2 0 - 7 % INTERFAC E SYSTEM BASOPHILS 1 0 - 2 % INTERFACE SYSTEM NEUTROPHIL ABSOLUTE 1.50(L) 1.90 - 7.00 K/uL INTERFACE SYSTEM LYMPHOCYTE ABSOLUTE 0.95 0.70 - 4.50 K/uL INTERFACE SYSTEM MONOCYTE ABSOLUTE 0.80 0.10 - 1.30 K/uL INTERFACE SYSTEM EOSINOPHIL ABSOLUTE 0.08 0.00 - 0.70 K/uL INTERFACE SYSTEM BASOPHILS ABSOLUTE 0.02 0.00 - 0.20 K/uL INTERFACE SYSTEM 08/17/2005 8:22 AM CDT Wallace Anthony MD HEMATOLOGY ORDERABLE S Performing Organization Address [facility] Phone Number INTERFACE SYSTEM Refer to clinic/hospital department * (ABNORMAL) CBC WITH DIFFERENTIAL (08/17/2005 8:22 AM CDT) WBC 3.4(L) 4.0 - 9.8 K/uL INTERFACE SYSTEM RBC 3.89(L) 3.90 - 4.90 M/uL INTERFACE SYSTEM HEMOGLOBIN 12.7 11.8 - 14.8 g/dL INTERFACE SYSTEM HEMATOCRIT 35.4(L) 35.5 - 44.0 % INTERFACE SYSTEM MCV 91.0 82.0 - 99.0 fL INTERFACE SYSTEM MCH 32.6 27.2 - 32.6 pg INTERFACE SYSTEM MCHC 35.9(H) 31.5 - 35.5 % INTERFACE SYSTEM RDW 12.9 11.5 - 14.5 % INTERFACE SYSTEM RDW-STDEV 41.5 37.1 - 48.7 fL INTERFACE SYSTEM PLATELETS 398(H) 140 - 350 K/uL INTERFACE SYSTEM MPV 8.1(L) 9.3 - 12.4 fL INTERFACE SYSTEM 08/17/2005 8:22 AM CDT Wallace Anthony MD HEMATOLOGY ORDERABLE S INTERFACE SYSTEM Refer to clinic/hospital department documented in this encounter Visit Diagnoses Diagnosis Other malignant lymphomas, unspecified site, extranodal and solid organ sites- Primary documented in this encounter Care Teams Educational Administrator Relationship Specialty [place] [address] [place] [address] PCP - General 07/14/04 documented as of this encounter
--- OUTSIDE RECORDS SUMMARY | 2024-10-25 03:08 | XMS_ITS | Encounter Summary ---
Author Organization [employer] Address [address] [place] [address] Care Team Providers Care Film Spooler Name Role Phone Liberty Hernandez MD Primary Care Provider [phone] Encounter Details Date Type Department Care Team (Latest Contact Info) Description 10/15/2005 Outpatient Historical [facility] Wallace Anthony [...] Associated Diagnosis Comments CBC WITH DIFFERENTIAL Routine 11/10/2005 2:21 PM INCOME TAX EXPERT CBC WITH DIFFERENTIAL Routine 11/10/2005 2:21 PM INCOME TAX EXPERT COMPREHENSIVE METABOLIC PANEL Routine 11/10/2005 2:21 PM INCOME TAX EXPERT documented in this encounter Results * (ABNORMAL) CBC WITH DIFFERENTIAL (11/10/2005 2:21 PM INCOME TAX EXPERT) NEUTROPHILS 50 45 - 70 % INTERFAC E SYSTEM LYMPHOCYTES 25 16 - 45 % INTERFAC E SYSTEM MONOCYTES 22(H) 3 - 13 % INTERFACE SYSTEM EOSINOPHILS 3 0 - 7 % INTERFAC E SYSTEM BASOPHILS 0 0 - 2 % INTERFACE SYSTEM NEUTROPHIL ABSOLUTE 2.52 1.90 - 7.00 K/uL INTERFACE SYSTEM LYMPHOCYTE ABSOLUTE 1.24 0.70 - 4.50 K/uL INTERFACE SYSTEM MONOCYTE ABSOLUTE 1.10 0.10 - 1.30 K/uL INTERFACE SYSTEM EOSINOPHIL ABSOLUTE 0.14 0.00 - 0.70 K/uL INTERFACE SYSTEM BASOPHILS ABSOLUTE 0.02 0.00 - 0.20 K/uL INTERFACE SYSTEM 11/10/2005 2:21 PM INCOME TAX EXPERT Wallace Anthony MD HEMATOLOGY ORDERABLE S Performing Organization Address [facility] de Phone Number INTERFACE SYSTEM Refer to clinic/hospital department * (ABNORMAL) CBC WITH DIFFERENTIAL (11/10/2005 2:21 PM INCOME TAX EXPERT) WBC 5.0 4.0 - 9.8 K/uL INTERFACE SYSTEM RBC 3.94 3.90 - 4.90 M/uL INTERFACE SYSTEM HEMOGLOBIN 12.7 11.8 - 14.8 g/dL INTERFACE SYSTEM HEMATOCRIT 35.7 35.5 - 44.0 % INTERFACE SYSTEM MCV 90.6 82.0 - 99.0 fL INTERFACE SYSTEM MCH 32.2 27.2 - 32.6 pg INTERFACE SYSTEM MCHC 35.6(H) 31.5 - 35.5 % INTERFACE SYSTEM RDW 12.2 11.5 - 14.5 % INTERFACE SYSTEM RDW-STDEV 39.8 37.1 - 48.7 fL INTERFACE SYSTEM PLATELETS 391(H) 140 - 350 K/uL INTERFACE SYSTEM MPV 8.4(L) 9.3 - 12.4 fL INTERFACE SYSTEM 11/10/2005 2:21 PM INCOME TAX EXPERT Wallace Anthony MD HEMATOLOGY ORDERABLE S Performing Organization Address [facility] de Phone Number INTERFACE SYSTEM Refer to clinic/hospital department * (ABNORMAL) COMPREHENSIVE METABOLIC PANEL (11/10/2005 2:21 PM INCOME TAX EXPERT) GLUCOSE 107 65 - 109 mg/dL INTERFACE SYSTEM CREATININE 0.7 0.4 - 1.2 mg/dL INTERFACE SYSTEM CALCIUM 9.3 8.6 - 10.2 mg/dL INTERFACE SYSTEM AST 25 12 - 32 U/L INTERFACE SYSTEM ALKALINE PHOSPHATASE 56 35 - 104 U/L INTERFACE SYSTEM BILIRUBIN TOTAL 0.3 0.2 - 1.0 mg/dL INTERFACE SYSTEM ALBUMIN 4.3 3.4 - 4.8 g/dL INTERFACE SYSTEM TOTAL PROTEIN 6.8 6.3 - 8.6 g/dL INTERFACE SYSTEM ALT 24 0 - 31 U/L INTERFACE SYSTEM BUN 22(H) 6 - 20 mg/dL INTERFACE SYSTEM SODIUM 141 135 - 145 mmol/L INTERFACE SYSTEM POTASSIUM 4.0 3.5 - 4.9 mmol/L INTERFACE SYSTEM CHLORIDE 105 96 - 108 mmol/L INTERFACE SYSTEM CO2 28 22 - 30 mmol/L INTERFACE SYSTEM 11/10/2005 2:21 PM INCOME TAX EXPERT Wallace Anthony MD CHEMISTRY ORDERABLES INTERFACE SYSTEM Refer to clinic/hospital department documented in this encounter Visit Diagnoses Diagnosis Other malignant lymphomas, unspecified site, extranodal and solid organ sites- Primary documented in this encounter Care Teams Film Spooler Relationship Specialty [place] [address] [place] [address] PCP - General 07/14/04 documented as of this encounter
--- OUTSIDE RECORDS SUMMARY | 2024-10-25 03:08 | XMS_ITS | Encounter Summary ---
Author Organization [email or web address] Address [address] [place] [address] Care Team Providers Care Auto Design Detailer Name Role Phone Liberty Hernandez MD Primary Care Provider [phone] Encounter Details Date Type Department Care Team (Late st Contact Info) Description 05/04/2005 Outpatient Historical [facility] ([facility]) [address] [place] [id number] Yuri Leyva Social History Tobacco Use Types Packs/Day Years Used Date Smoking Tobacco: Never Assessed Sex and Gender Information Value Date Recorded Sex Assigned at Not on file Gender Identity Not on file Sexual Orientation Not on file documented as of this encounter Plan of Treatment Not on file documented as of this encounter Visit Diagnoses Not on filedocumented in this encounter Care Teams Auto Design Detailer Relationship Specialty [place] [address] [place] [address] PCP - General 07/14/04 documented as of this encounter
--- OUTSIDE RECORDS SUMMARY | 2024-10-25 03:08 | XMS_ITS | Encounter Summary ---
Author Organization [facility] Address [address] [place] [address] Care Team Providers Care Tomato Pulper Operator Name Role Phone Liberty Hernandez MD Primary Care Provider [phone] Encounter Details Date Type Department Care Team (Latest Contact Info) Description 08/13/2008 Outpatient Historical [facility] Wallace Anthony [...] Associated Diagnosis Comments CBC WITH DIFFERENTIAL Stat 08/13/2008 1:13 PM CDT COMPREHENSIVE METABOLIC PANEL Stat 08/13/2008 1:13 PM CDT documented in this encounter Results * (ABNORMAL) COMPREHENSIVE METABOLIC PANEL (08/13/2008 1:13 PM CDT) SODIUM 140 135 - 145 mmol/L [facility] ALT 19 0 - 31 U/L [facility] ALKALINE PHOSPHATASE 70 35 - 104 U/L [facility] BILIRUBIN TOTAL 0.3 0.2 - 1.0 mg/dL [facility] CO2 25 22 - 30 mmol/L [facility] TOTAL PROTEIN 7.3 6.3 - 8.6 g/dL [facility] POTASSIUM 3.5 3.5 - 4.9 mmol/L [facility] GLUCOSE 105(H) 65 - 99 mg/dL [facility] AST 28 12 - 32 U/L [facility] BUN 17 6 - 20 mg/dL [facility] CALCIUM 9.5 8.6 - 10.2 mg/dL [facility] CHLORIDE 103 96 - 108 mmol/L [facility] ALBUMIN 4.7 3.4 - 4.8 g/dL [facility] CREATININE 0.66 0.51 - 0.95 mg/dL [facility] GFR, >60 >=60 mL/min/1. 7 sq meter [facility] GFR >60 >=60 mL/min/1. 7 sq meter [facility] Comment: Modification of Diet in Renal Disease (MDRD) study formula. Estimated GFR rate interpretative information for both Americans and non- Americans is available on the [facility] Intranet at: [email or web address] Select: Lab Policies and Procedures Select: Reference Ranges - GFR Blood specimen (specimen) 08/13/2008 1:13 PM CDT 08/13/2008 1:13 PM CDT Wallace Anthony MD CHEMISTRY ORDERABLES INTERFACE SYSTEM Refer to clinic/hospital department [facility] CLIA# [id number] [address] [place], [place] [address] * (ABNORMAL) CBC WITH DIFFERENTIAL (08/13/2008 1:13 PM CDT) RBC 4.21 3.90 - 4.90 M/uL [facility] MCHC 35.7(H) 31.5 - 35.5 % [facility] MCV 89.1 82.0 - 99.0 [facility] PLATELETS 309 140 - 350 K/uL [facility] HEMOGLOBIN 13.4 11.8 - 14.8 g/dL [facility] RDW 12.3 11.5 - 14.5 % [facility] WBC 8.1 4.0 - 9.8 K/uL [facility] MCH 31.8 27.2 - 32.6 pg [facility] MPV 8.9(L) 9.3 - 12.4 fL [facility] HEMATOCRIT 37.5 35.5 - 44.0 % [facility] RDW-STDEV 39.9 37.1 - 48.7 fL [facility] EOSINOPHILS 1 0 - 7 % [facility] EOSINOPHIL ABSOLUTE 0.10 0.00 - 0.70 K/uL [facility] LYMPHOCYTES 32 16 - 45 % [facility] LYMPHOCYTE ABSOLUTE 2.59 0.70 - 4.50 K/uL [facility] BASOPHILS 0 0 - 2 % [facility] BASOPHILS ABSOLUTE 0.03 0.00 - 0.20 K/uL [facility] MONOCYTES 12 3 - 13 % [facility] MONOCYTE ABSOLUTE 0.99 0.10 - 1.30 K/uL [facility] NEUTROPHILS 54 45 - 70 % [facility] NEUTROPHIL ABSOLUTE 4.34 1.90 - 7.00 K/uL [facility] Blood specimen (specimen) 08/13/2008 1:13 PM CDT 08/13/2008 1:13 PM CDT Wallace Anthony MD HEMATOLOGY ORDERABLE S INTERFACE SYSTEM Refer to clinic/hospital department [facility] CLIA# [id number] [address] [place] [address] documented in this encounter Visit Diagnoses Diagnosis 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
--- OUTSIDE RECORDS SUMMARY | 2024-10-25 03:08 | XMS_ITS | Encounter Summary ---
Author Organization [facility] Address [address] [place] [address] Care Team Providers Care Hospitalist Program Director Name Role Phone Liberty Hernandez MD Primary Care Provider [phone] Encounter Details Date Type Department Care Team (Late st Contact Info) Description 12/30/2009 Orders Only [facility] Laboratory Services [facility] [address], [facility] [address] [place] [address] Wallace Anthony MD NO ADDRESS ON FILE 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 (Primary Dx) Social History Tobacco Use Types Packs/Day Years Used Date Smoking Tobacco: Never Assessed Sex and Gender Information Value Date Recorded Sex Assigned at Not on file Gender Identity Not on file Sexual Orientation Not on file documented as of this encounter Plan of Treatment Not on file documented as of this encounter Results * (ABNORMAL) CBC WITH DIFFERENTIAL (12/30/2009 9:30 AM LEARNING AND DEVELOPMENT ADMINISTRATOR) WBC 6.7 4.0 - 9.8 K/uL [facility] RBC 4.15 3.90 - 4.90 M/uL [facility] HEMOGLOBIN 13.2 11.8 - 14.8 g/dL [facility] HEMATOCRIT 38.8 35.5 - 44.0 % [facility] MCV 93.5 82.0 - 99.0 fL [facility] MCH 31.8 27.2 - 32.6 pg [facility] MCHC 34.0 31.5 - 35.5 % [facility] PLATELETS 297 140 - 350 K/uL [facility] MPV 9.1(L) 9.3 - 12.4 fL [facility] RDW 12.5 11.5 - 14.5 % [facility] RDW-STDEV 43.1 37.1 - 48.7 fL [facility] NEUTROPHILS 60 45 - 70 % [facility] LYMPHOCYTES 29 16 - 45 % [facility] MONOCYTES 10 3 - 13 % [facility] EOSINOPHILS 1 0 - 7 % [facility] BASOPHILS 0 0 - 2 % [facility] NEUTROPHIL ABSOLUTE 4.01 1.90 - 7.00 K/uL [facility] LYMPHOCYTE ABSOLUTE 1.92 0.70 - 4.50 K/uL [facility] MONOCYTE ABSOLUTE 0.70 0.10 - 1.30 K/uL [facility] EOSINOPHIL ABSOLUTE 0.04 0.00 - 0.70 K/uL [facility] BASOPHILS ABSOLUTE 0.03 0.00 - 0.20 K/uL [facility] Blood specimen (specimen) 12/30/2009 9:30 AM LEARNING AND DEVELOPMENT ADMINISTRATOR 12/30/2009 9:37 AM LEARNING AND DEVELOPMENT ADMINISTRATOR Wallace Anthony MD HEMATOLOGY ORDERABLE S [facility] CLIA# [id number] [address] [place], [place] [address] * (ABNORMAL) COMPREHENSIVE METABOLIC PANEL (12/30/2009 9:30 AM LEARNING AND DEVELOPMENT ADMINISTRATOR) SODIUM 142 135 - 145 mmol/L [facility] POTASSIUM 3.8 3.5 - 4.9 mmol/L [facility] CHLORIDE 105 96 - 108 mmol/L [facility] CO2 28 22 - 30 mmol/L [facility] CALCIUM 9.5 8.6 - 10.2 mg/dL [facility] BUN 17 6 - 20 mg/dL [facility] CREATININE 0.68 0.51 - 0.95 mg/dL [facility] GLUCOSE 64(L) 65 - 99 mg/dL [facility] TOTAL PROTEIN 7.1 6.3 - 8.6 g/dL [facility] ALBUMIN 4.7 3.4 - 4.8 g/dL [facility] BILIRUBIN TOTAL 0.3 0.2 - 1.0 mg/dL [facility] ALKALINE PHOSPHATASE 66 35 - 104 U/L [facility] AST 29 12 - 32 U/L [facility] ALT 22 0 - 31 U/L [facility] GFR, >60 >=60 mL/min/1.7 sq meter [facility] GFR >60 >=60 mL/min/1.7 sq meter [facility] Comment: Modification of Diet in Renal Disease (MDRD) study formula. Estimated GFR rate interpretative information for both Americans and non- Americans is available on the [facility] Intranet at: [email or web address] Select: Lab Policies and Procedures Select: Reference Ranges - GFR Blood specimen (specimen) 12/30/2009 9:30 AM LEARNING AND DEVELOPMENT ADMINISTRATOR 12/30/2009 9:37 AM LEARNING AND DEVELOPMENT ADMINISTRATOR Wallace Anthony MD CHEMISTRY ORDERABLES [facility] CLIA# [id number] [address] [facility] [address] [place] [address] documented in this encounter Visit Diagnoses Diagnosis 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
--- OUTSIDE RECORDS SUMMARY | 2024-10-25 03:08 | XMS_ITS | Encounter Summary ---
Author Organization [employer] [facility] Address [address] [place] [address] Care Team Providers Care Woods Laborer Name Role Phone Liberty Hernandez MD Primary Care Provider [phone] Encounter Details Date Type Department Care Team (Latest Contact Info) Description 12/28/2004 Outpatient Historical [facility] ANIKA Meyer, Donell Roche MD NO ADDRESS ON FILE ENLARGEMENT LYMPH NODES (Primary Dx) Social History [...] Procedure Name Priority Date/Time Associated Diagnosis Comments TULAREMIA ANTIBODY Routine 12/28/2004 4: 17 PM SLOOP CAPTAIN CMV IGM Routine 12/28/2004 4:17 PM SLOOP CAPTAIN CMV IGG Routine 12/28/2004 4:17 PM SLOOP CAPTAIN CORTISOL LEVEL Routine 12/28/2004 4:17 PM SLOOP CAPTAIN documented in this encounter Results * CORTISOL LEVEL (12/28/2004 4:17 PM SLOOP CAPTAIN) CORTISOL LEVEL 3.1 ug/dL INTER FACE SYSTEM Comment: Cortisol Reference Range: 7 - 10 AM: ?? 6.2 - 19.4 ug/dL 4 - ??8 PM: ?? 2.3 - 12.3 ug/dL 12/28/2004 4:17 PM SLOOP CAPTAIN Donell Meyer MD CHEMISTRY ORDERABL ES Performing Organization Address [facility] de Phone Number INTERFACE SYSTEM Refer to clinic/hospital department * TULAREMIA ANTIBODY (12/28/2004 4:17 PM SLOOP CAPTAIN) FRANCISELLA AB <20 INTER FACE SYSTEM Comment: Reference Range: ?<20 ??NEGATIVE A single titer of greater than 80 or a four-fold rise in titer is considered significant. ??Cross-reactions may occur between Francisella and Brucella antigens and antisera. Parallel testing is recommended for positive agglutinations. ? Lab test performed by: [employer] [id number] [place] [address] Pj BUTLER MD 12/28/2004 4:17 PM SLOOP CAPTAIN Donell Meyer MD CHEMISTRY ORDERABL ES Performing Organization Address [facility] de Phone Number INTERFACE SYSTEM Refer to clinic/hospital department * CMV IGM (12/28/2004 4:17 PM SLOOP CAPTAIN) CMV IGM 0.24 EIA Value INTERFACE SYSTEM Comment: INDEX VALUE ?? EXPLANATION OF TEST RESULTS ? < 0.90 ?NEGATIVE - NO CMV IGM ANTIBODY DETECTED 0.90 - 1.10 ?EQUIVOCAL > OR = 1.11 ?POSITIVE - CMV IGM ANTIBODY DETECTED RESULTS FROM ANY ONE IGM ASSAY SHOULD NOT BE USED A SOLE DETERMINANT OF A CURRENT OR RECENT INFECTION. ?? BECAUSE IGM TESTS CAN YIELD FALSE POSITIVE RESULTS AND LOW LEVELS OF IGM ANTIBODY MAY PERSIST FOR MORE THAN 12 MONTHS POST INFECTION, RELIANCE ON A SINGLE TEST RESULT COULD BE MISLEADING. ??IF AN ACUTE INFECTION IS SUSPECTED, CONSIDER OBTAINING A NEW SPECIMEN AND SUBMIT FOR BOTH IGG AND IGM TESTING IN TWO OR MORE WEEKS. ? Lab test performed by: [facility] [address] [place] [address] MARQUISE LAWSON MD 12/28/2004 4:17 PM SLOOP CAPTAIN Donell Meyer MD CHEMISTRY ORDERABL ES Performing Organization Address [facility] de Phone Number INTERFACE SYSTEM Refer to clinic/hospital department * (ABNORMAL) CMV IGG (12/28/2004 4:17 PM SLOOP CAPTAIN) CMV IGG >5.00(H) EIA Value INTERFACE SYSTEM Comment: EIA VALUE ? EXPLANATION OF TEST RESULTS --------- ? < OR = 0.90 ?NEGATIVE - NO CMV IGG ANTIBODY DETECTED 0.91 - 1.09 ?EQUIVOCAL > OR = 1.10 ?POSITIVE - CMV IGG ANTIBODY DETECTED THE PRESENCE OF CYTOMEGALOVIRUS (CMV) IGG ANTIBODY SUGGESTS A CURRENT OR PAST INFECTION WITH CMV. ??SERA COLLECTED EARLY IN THE COURSE OF INFECTION MAY NOT HAVE DETECTABLE LEVELS OF IGG ANTIBODY. IF A CURRENT OR RECENT INFECTION IS SUSPECTED, PERFORMING A CMV IGM TEST ON A SINGLE SERUM MAY YIELD CLINICALLY USEFUL INFORMATION. ? Lab test performed by: [employer] [address] MARQUISE LAWSON MD 12/28/2004 4:17 PM SLOOP CAPTAIN Donell Meyer MD CHEMISTRY ORDERABL ES Performing Organization Address [facility] Phone Number INTERFACE SYSTEM Refer to clinic/hospital department documented in this encounter Visit Diagnoses Diagnosis Enlargement of lymph nodes- Primary documented in this encounter Care Teams Woods Laborer Relationship Specialty [place] [address] [place] [address] PCP - General 07/14/04 documented as of this encounter
--- OUTSIDE RECORDS SUMMARY | 2024-10-25 03:08 | XMS_ITS | Encounter Summary ---
Author Organization [facility] Address [address] [place] [address] Care Team Providers Care Stage Rigger Name Role Phone Liberty Hernandez MD Primary Care Provider [phone] Encounter Details Date Type Department Care Team (Late st Contact Info) Description 12/06/2004 Outpatient Historical HIS [facility] Ant Huang MD [address] [phone] ENLARGEMENT LYMPH NODES (Primary Dx) Social History [...] Procedure Name Priority Date/Time Associated Diagnosis Comments TOXOPLASMOSIS IGM Routine 12/06/2004 2:5 2 PM BUSINESS SYSTEMS ARCHITECT PARVOVIRUS B19 AB IGG/IGM Routine 12/06/2004 2:52 PM BUSINESS SYSTEMS ARCHITECT EBV IGM, VCA Routine 12/06/2004 2:52 PM BUSINESS SYSTEMS ARCHITECT EBV IGG, VCA Routine 12/06/2004 2:52 PM BUSINESS SYSTEMS ARCHITECT CBC WITH DIFFERENTIAL Routine 12/06/2004 2:52 PM BUSINESS SYSTEMS ARCHITECT CBC WITH DIFFERENTIAL Routine 12/06/2004 2:52 PM BUSINESS SYSTEMS ARCHITECT CMV IGG Routine 12/06/2004 2:52 PM BUSINESS SYSTEMS ARCHITECT AMELIA SCREEN W/REFLEX Routine 12/06/2004 2 :52 PM BUSINESS SYSTEMS ARCHITECT documented in this encounter Results * (ABNORMAL) CBC WITH DIFFERENTIAL (12/06/2004 2:52 PM BUSINESS SYSTEMS ARCHITECT) NEUTROPHILS 59 45 - 70 % INTERFAC E SYSTEM LYMPHOCYTES 24 16 - 45 % INTERFAC E SYSTEM MONOCYTES 15(H) 3 - 13 % INTERFACE SYSTEM EOSINOPHILS 2 0 - 7 % INTERFAC E SYSTEM BASOPHILS 0 0 - 2 % INTERFACE SYSTEM NEUTROPHIL ABSOLUTE 3.56 1.90 - 7.00 K/uL INTERFACE SYSTEM LYMPHOCYTE ABSOLUTE 1.41 0.70 - 4.50 K/uL INTERFACE SYSTEM MONOCYTE ABSOLUTE 0.91 0.10 - 1.30 K/uL INTERFACE SYSTEM EOSINOPHIL ABSOLUTE 0.11 0.00 - 0.70 K/uL INTERFACE SYSTEM BASOPHILS ABSOLUTE 0.02 0.00 - 0.20 K/uL INTERFACE SYSTEM 12/06/2004 2:52 PM BUSINESS SYSTEMS ARCHITECT Ant Bowling MD HEMATOLOGY ORDERABLE S INTERFACE SYSTEM Refer to clinic/hospital department * (ABNORMAL) CBC WITH DIFFERENTIAL (12/06/2004 2:52 PM BUSINESS SYSTEMS ARCHITECT) Pathologist [facility] WBC 6.0 4.0 - 9.8 K/uL INTERFACE SYSTEM RBC 3.92 3.90 - 4.90 M/uL INTERFACE SYSTEM HEMOGLOBIN 12.8 11.8 - 14.8 g/dL INTERFACE SYSTEM HEMATOCRIT 37.0 35.5 - 44.0 % INTERFACE SYSTEM MCV 94.4 82.0 - 99.0 fL INTERFACE SYSTEM MCH 32.7(H) 27.2 - 32.6 pg INTERFACE SYSTEM MCHC 34.6 31.5 - 35.5 % INTERFACE SYSTEM RDW 12.5 11.5 - 14.5 % INTERFACE SYSTEM RDW-STDEV 42.9 37.1 - 48.7 fL INTERFACE SYSTEM PLATELETS 350 140 - 350 K/uL INTERFACE SYSTEM MPV 9.2(L) 9.3 - 12.4 fL INTERFACE SYSTEM 12/06/2004 2:52 PM BUSINESS SYSTEMS ARCHITECT Ant Bwoling MD HEMATOLOGY ORDERABLE S INTERFACE SYSTEM Refer to clinic/hospital department * (ABNORMAL) PARVOVIRUS B19 AB IGG/IGM (12/06/2004 2:52 PM BUSINESS SYSTEMS ARCHITECT) PARVOVIRUS B19 IGG ABS 4.2(H) <0.9 Index INTERFACE SYSTEM PARVOVIRUS B19 IGM ABS 0.1 <0.9 Index INTERFACE SYSTEM Comment: Reference range: ??IgG and IgM Index ?<0.9 ?? Negative 0.9-1.1 ?? Equivocal ?>1.1 ?? Positive Interpretation: NEGATIVE: ??No antibody detected. ??This ? individual may be susceptible to ? parvovirus B-19 infection. POSITIVE: ??Indicative of exposure to ? parvovirus B-19. EQUIVOCAL results are those results too close to the cut-off values to interpret. ??A second sample should be drawn in two weeks, if clinically indicated. ? Specific IgG persists for years, and provides lifetime immunity. ??A majority of adults show evidence of past infection. ??If definitive diagnosis of acute parvovirus infection is desired, a parvovirus B-19 IgM should be obtained. Due to the poor humoral immune response in the immunocompromised, the chronically anemic, and the fetus, both antibody and DNA PCR tests are recommended for definitive diagnosis of parvovirus B-19 infection in these patients. ? Lab test performed by: [employer] [facility] [address] [place], [place] MISSY VALLADARES MD 12/06/2004 2:52 PM BUSINESS SYSTEMS ARCHITECT Ant Bowling MD CHEMISTRY ORDERABLES Performing Organization Address [facility] de Phone Number INTERFACE SYSTEM Refer to clinic/hospital department * TOXOPLASMOSIS IGM (12/06/2004 2:52 PM BUSINESS SYSTEMS ARCHITECT) TOXOPLASMOSIS IGG 0.20 EIA Value IN TERFACE SYSTEM Comment: EIA VALUE ? EXPLANATION OF TEST RESULTS --------- ? < OR = 0.90 ?NEGATIVE - NO TOXOPLASMA IGG ANTIBODY ?DETECTED 0.91 - 1.09 ?EQUIVOCAL > OR = 1.10 ?POSITIVE - TOXOPLASMA IGG ANTIBODY DETECTED THE PRESENCE OF TOXOPLASMA IGG ANTIBODY SUGGESTS A CURRENT OR PAST INFECTION WITH TOXOPLASMA GONDII. ??SERA COLLECTED EARLY IN THE COURSE OF INFECTION MAY NOT HAVE DETECTABLE LEVELS OF IGG ANTIBODY. DETERMINATION OF CURRENT INFECTION MAY REQUIRE ADDITIONAL TESTING FOR TOXOPLASMA IGM. ? Lab test performed by: [facility] [address] MARQUISE LAWSON MD TOXOPLASMOSIS IGM IN TERFACE SYSTEM Comment:NEGATIVE: NO IGM ANT IBODY TOXOPLASMOSIS IGM INTERP INTERFACE SYSTEM Comment: NO SEROLOGIC EVIDENCE OF INFECTION WITH TOXOPLASMA GONDII. ??CONSIDER RETESTING IN 3 WEEKS IF ACUTE INFECTION IS SUSPECTED.See Result Comment TOXOPLASMOSIS IGM COMMENT INTERFACE SYSTEM Comment: THIS INTERPRETATION CANNOT BE APPLIED TO INFANTS 15 MONTHS OF AGE OR LESS. ? Lab test performed by: [facility] [address] MARQUISE LAWSON MD See Result Comment 12/06/2004 2:52 PM BUSINESS SYSTEMS ARCHITECT Ant Bowling MD CHEMISTRY ORDERABLES INTERFACE SYSTEM Refer to clinic/hospital department * EBV IGM, VCA (12/06/2004 2:52 PM BUSINESS SYSTEMS ARCHITECT) Pathologist [facility] EBV IGM, VCA 0.00 EIA Value INTERFA CE SYSTEM EBV REFERENCE RANGE INTERFACE SYSTEM Comment: EIA VALUE ? INTERPRETATION < OR = 0.90 ? NEGATIVE - NO ANTIBODY DETECTED 0.91 - 1.09 ? EQUIVOCAL > OR = 1.10 ? POSITIVE - ANTIBODY DETECTED ? Lab test performed by: [facility] [facility] [address] MARQUISE LAWSON MD See Result Comment 12/06/2004 2:52 PM BUSINESS SYSTEMS ARCHITECT Ant Bowling MD CHEMISTRY ORDERABLES COM Performing Organization Address [facility] Phone Number INTERFACE SYSTEM Refer to clinic/hospital department * (ABNORMAL) EBV IGG, VCA (12/06/2004 2:52 PM BUSINESS SYSTEMS ARCHITECT) EBV IGG, VCA 3.76(H) EIA Value INTERFA CE SYSTEM EBV REFERENCE RANGE INTERFACE SYSTEM Comment: EIA VALUE ? INTERPRETATION < OR = 0.90 ? NEGATIVE - NO ANTIBODY DETECTED 0.91 - 1.09 ? EQUIVOCAL > OR = 1.10 ? POSITIVE - ANTIBODY DETECTED ? Lab test performed by: [facility] [facility] [address] MARQUISE LAWSON MD See Result Comment 12/06/2004 2:52 PM BUSINESS SYSTEMS ARCHITECT Ant Bowling MD CHEMISTRY ORDERABLES Performing Organization Address [facility] Phone Number INTERFACE SYSTEM Refer to clinic/hospital department * (ABNORMAL) CMV IGG (12/06/2004 2:52 PM BUSINESS SYSTEMS ARCHITECT) CMV IGG >5.00(H) EIA Value INTERFACE SYSTEM [...] USEFUL INFORMATION. ? [facility] [address] [place] [address] MARQUISE LAWSON MD 12/06/2004 2:52 PM BUSINESS SYSTEMS ARCHITECT Ant Bowling MD CHEMISTRY ORDERABLES Performing Organization Address [facility] Phone Number INTERFACE SYSTEM Refer to clinic/hospital department * (ABNORMAL) AMELIA (12/06/2004 2:52 PM BUSINESS SYSTEMS ARCHITECT) AMELIA SCREEN POSITIVE( A) NEGATIVE INTERFACE SYSTEM AMELIA TITER <1:40 Titer INTERFACE SYSTEM Comment: A POSITIVE AMELIA-EIA SCREEN ASSOCIATED WITH A NEGATIVE AMELIA-IFA RESULT MAY SUGGEST THE POSSIBILITY OF CLINICALLY SIGNIFICANT ANTIBODIES OR NON-SPECIFIC ANTIBODIES. ??IF CLINICALLY INDICATED, ASSESSMENT FOR OTHER SYSTEMIC AUTOIMMUNITY SHOULD BE CONSIDERED. ? REFERENCE RANGE: ? <1:40 ?NEGATIVE ? 1:40 - 1:80 ?LOW ANTIBODY LEVEL ? >1:80 ?ELEVATED ANTIBODY LEVEL ? Lab test performed by: [facility] [id number] [place] [address] MARQUISE LAWSON MD 12/06/2004 2:52 PM BUSINESS SYSTEMS ARCHITECT Ant Bowling MD CHEMISTRY ORDERABLES Performing Organization Address [facility] Phone Number INTERFACE SYSTEM Refer to clinic/hospital department documented in this encounter Visit Diagnoses Diagnosis Enlargement of lymph nodes- Primary documented in this encounter Care Teams Stage Rigger Relationship Specialty [place] [address] [place] [address] PCP - General 07/14/04 documented as of this encounter
--- OUTSIDE RECORDS SUMMARY | 2024-10-25 03:08 | XMS_ITS | Encounter Summary ---
Author Organization [employer] Address [address] [place] [address] Care Team Providers Care Packer Inspector Name Role Phone Liberty Hernandez MD Primary Care Provider [phone] Encounter Details Date Type Department Care Team (Latest Contact Info) Description 06/08/[address] [facility] Wallace Anthony MD NO [...] Primary documented in this encounter Care Teams Packer Inspector Relationship Specialty [place] [address] [place] [address] PCP - General 07/14/04 documented as of this encounter
--- OUTSIDE RECORDS SUMMARY | 2024-10-25 03:08 | XMS_ITS | Encounter Summary ---
Author Organization [facility] Address [address] [place] [address] Care Team Providers Care Graphic Art Designer Name Role Phone Liberty Hernandez MD Primary Care Provider [phone] Encounter Details Date Type Department Care Team (Latest Contact Info) Description 06/09/2005 Outpatient Historical [facility] Wallace Anthony [...] Associated Diagnosis Comments CBC WITH DIFFERENTIAL Routine 07/05/2005 4:01 PM CDT CBC WITH DIFFERENTIAL Routine 07/05/2005 4:01 PM CDT URINALYSIS W/REFLEX MICROSCOPIC Routine 06/09/2005 2:48 PM CDT BONE MARROW COLLECTION Routine 5 2:21 PM CDT TSH REFLEXIVE Routine 06/09/2005 1:23 PM CDT CBC WITH DIFFERENTIAL Routine 06/09/2005 1:23 PM CDT CBC WITH DIFFERENTIAL Routine 06/09/2005 1:23 PM CDT URIC ACID Routine 06/09/2005 1:23 PM CDT LACTATE DEHYDROGENASE Routine 06/09/2005 1:23 PM CDT BETA 2 MICROGLOBULIN, SERUM Routine 06/09/2005 1:23 PM CDT COMPREHENSIVE METABOLIC PANEL Routine 06/09/2005 1:23 PM CDT documented in this encounter Results * CBC WITH DIFFERENTIAL (07/05/2005 4:01 PM CDT) Pathologist [facility] NEUTROPHIL ABSOLUTE 4.42 1.90 - 7.00 K/uL INTERFACE SYSTEM LYMPHOCYTE ABSOLUTE 1.63 0.70 - 4.50 K/uL INTERFACE SYSTEM MONOCYTE ABSOLUTE 0.39 0.10 - 1.30 K/uL INTERFACE SYSTEM EOSINOPHIL ABSOLUTE 0.07 0.00 - 0.70 K/uL INTERFACE SYSTEM BASOPHILS ABSOLUTE 0.00 0.00 - 0.20 K/uL INTERFACE SYSTEM NEUTROPHILS, SEG 68 45 - 70 % INT ERFACE SYSTEM LYMPHOCYTES 25 16 - 45 % INTERFAC E SYSTEM MONOCYTES 6 3 - 13 % INTERFACE SYSTEM EOSINOPHILS 1 0 - 7 % INTERFAC E SYSTEM BASOPHILS 0 0 - 2 % INTERFACE SYSTEM PLATELET EST. Normal Normal INTERF QUINN SYSTEM POIKILOCYTES Slight INTERFA CE SYSTEM OVALOCYTES Slight INTERFACE SYSTEM 07/05/2005 4:01 PM CDT Wallace Anthony MD HEMATOLOGY ORDERABLE S INTERFACE SYSTEM Refer to clinic/hospital department * (ABNORMAL) CBC WITH DIFFERENTIAL (07/05/2005 4:01 PM CDT) Pathologist [facility] WBC 6.5 4.0 - 9.8 K/uL INTERFACE SYSTEM RBC 3.86(L) 3.90 - 4.90 M/uL INTERFACE SYSTEM HEMOGLOBIN 12.5 11.8 - 14.8 g/dL INTERFACE SYSTEM HEMATOCRIT 35.0(L) 35.5 - 44.0 % INTERFACE SYSTEM MCV 90.7 82.0 - 99.0 fL INTERFACE SYSTEM MCH 32.4 27.2 - 32.6 pg INTERFACE SYSTEM MCHC 35.7(H) 31.5 - 35.5 % INTERFACE SYSTEM RDW 12.5 11.5 - 14.5 % INTERFACE SYSTEM RDW-STDEV 41.1 37.1 - 48.7 fL INTERFACE SYSTEM PLATELETS 337 140 - 350 K/uL INTERFACE SYSTEM MPV 8.9(L) 9.3 - 12.4 fL INTERFACE SYSTEM 07/05/2005 4:01 PM CDT Wallace Anthony MD HEMATOLOGY ORDERABLE S Performing Organization Address City/[facility] Co de Phone Number INTERFACE SYSTEM Refer to clinic/hospital department * (ABNORMAL) URINALYSIS (06/09/2005 2:48 PM CDT) COLOR UA Yellow INTERFACE SYSTEM CLARITY UA Clear Clear INTERFACE SYSTEM SPECIFIC GRAVITY UA 1.020 1.001 - 1.035 INTERFACE SYSTEM PH UA 6.0 5.0 - 8.0 INTERFACE SYSTEM LEUKOCYTE ESTERASE UA Negative Negative INTERFACE SYSTEM NITRITE UA Negative Negative INTERFACE SYSTEM PROTEIN UA Trace(A) Negative INTERFACE SYSTEM GLUCOSE UA Negative Negative INTERFACE SYSTEM KETONES UA Negative Negative INTERFACE SYSTEM UROBILINOGEN UA <1 <1 mg/dL INTE RFACE SYSTEM Comment: Effective 04/20/05, Urobilinogen will be reported in mg/dL resulting in a n increased sensitivity at lower urobilinogen levels. ??Previously, results were reported in Angela unit(EU)/dL. ??1+ results previously reported as 1 EU/dL (normal) will become 2 mg/dL (abnormal). BILIRUBIN UA Negative Negative INTERFA CE SYSTEM BLOOD UA Negative Negative INTERFACE SYSTEM WBC UA 2 0 - 5 /HPF INTERFACE SYSTEM RBC UA 1 0 - 4 /HPF INTERFACE SYSTEM BACTERIA UA 1+(A) None Seen /HPF INTERFACE SYSTEM EPITHELIAL CELLS, URINE 5-10 /HPF INTERFACE SYSTEM 06/09/2005 2:48 PM CDT Wallace Anthony MD URINE ORDERABLES Performing Organization Address City/[facility]/ZIP Co de Phone Number INTERFACE SYSTEM Refer to clinic/hospital department * BONE MARROW COLLECTION (06/09/2005 2:21 PM CDT) BONE MARROW See Pathology Report INTERFACE SYSTEM 06/09/2005 2:21 PM CDT Wallace Anthony MD PATHOLOGY/CYTOLOGY O RDERABLES Performing Organization Address [facility] Phone Number INTERFACE SYSTEM Refer to clinic/hospital department * TSH REFLEXIVE (06/09/2005 1:23 PM CDT) TSH 0.85 0.27 - 4.20 uU/mL INTERFACE SYSTEM 06/09/2005 1:23 PM CDT Wallace Anthony MD CHEMISTRY ORDERABLES Performing Organization Address [facility] Phone Number INTERFACE SYSTEM Refer to clinic/hospital department * (ABNORMAL) CBC WITH DIFFERENTIAL (06/09/2005 1:23 PM CDT) NEUTROPHILS 69 45 - 70 % INTERFAC E SYSTEM LYMPHOCYTES 16 16 - 45 % INTERFAC E SYSTEM MONOCYTES 14(H) 3 - 13 % INTERFACE SYSTEM EOSINOPHILS 1 0 - 7 % INTERFAC E SYSTEM BASOPHILS 0 0 - 2 % INTERFACE SYSTEM NEUTROPHIL ABSOLUTE 4.52 1.90 - 7.00 K/uL INTERFACE SYSTEM LYMPHOCYTE ABSOLUTE 1.05 0.70 - 4.50 K/uL INTERFACE SYSTEM MONOCYTE ABSOLUTE 0.92 0.10 - 1.30 K/uL INTERFACE SYSTEM EOSINOPHIL ABSOLUTE 0.05 0.00 - 0.70 K/uL INTERFACE SYSTEM BASOPHILS ABSOLUTE 0.02 0.00 - 0.20 K/uL INTERFACE SYSTEM 06/09/2005 1:23 PM CDT Wallace Anthony MD HEMATOLOGY ORDERABLE S Performing Organization Address [facility] Phone Number INTERFACE SYSTEM Refer to clinic/hospital department * (ABNORMAL) CBC WITH DIFFERENTIAL (06/09/2005 1:23 PM CDT) WBC 6.6 4.0 - 9.8 K/uL INTERFACE SYSTEM RBC 3.97 3.90 - 4.90 M/uL INTERFACE SYSTEM HEMOGLOBIN 12.8 11.8 - 14.8 g/dL INTERFACE SYSTEM HEMATOCRIT 36.2 35.5 - 44.0 % INTERFACE SYSTEM MCV 91.2 82.0 - 99.0 fL INTERFACE SYSTEM MCH 32.2 27.2 - 32.6 pg INTERFACE SYSTEM MCHC 35.4 31.5 - 35.5 % INTERFACE SYSTEM RDW 12.1 11.5 - 14.5 % INTERFACE SYSTEM RDW-STDEV 39.4 37.1 - 48.7 fL INTERFACE SYSTEM PLATELETS 347 140 - 350 K/uL INTERFACE SYSTEM MPV 8.8(L) 9.3 - 12.4 fL INTERFACE SYSTEM 06/09/2005 1:23 PM CDT Wallace Anthony MD HEMATOLOGY ORDERABLE S Performing Organization Address [facility] Phone Number INTERFACE SYSTEM Refer to clinic/hospital department * URIC ACID (06/09/2005 1:23 PM CDT) URIC ACID 2.9 2.3 - 6.6 mg/dL INTERFACE SYSTEM 06/09/2005 1:23 PM CDT Wallace Anthony MD CHEMISTRY ORDERABLES Performing Organization Address [facility] Phone Number INTERFACE SYSTEM Refer to clinic/hospital department * (ABNORMAL) LACTATE DEHYDROGENASE (06/09/2005 1:23 PM CDT) LD (LACTATE DEHYDROGENASE) 219(H) 135 - 214 U/L INTERFACE SYSTEM 06/09/2005 1:23 PM CDT Wallace Anthony MD CHEMISTRY ORDERABLES Performing Organization Address [facility] Phone Number INTERFACE SYSTEM Refer to clinic/hospital department * COMPREHENSIVE METABOLIC PANEL (06/09/2005 1:23 PM CDT) GLUCOSE 87 65 - 109 mg/dL INTERFACE SYSTEM CREATININE 0.7 0.4 - 1.2 mg/dL INTERFACE SYSTEM CALCIUM 9.5 8.6 - 10.2 mg/dL INTERFACE SYSTEM AST 31 12 - 32 U/L INTERFACE SYSTEM ALKALINE PHOSPHATASE 60 35 - 104 U/L INTERFACE SYSTEM BUN 17 6 - 20 mg/dL INTERFACE SYSTEM BILIRUBIN TOTAL 0.2 0.2 - 1.0 mg/dL INTERFACE SYSTEM ALBUMIN 4.7 3.4 - 4.8 g/dL INTERFACE SYSTEM TOTAL PROTEIN 7.7 6.3 - 8.6 g/dL INTERFACE SYSTEM ALT 21 0 - 31 U/L INTERFACE SYSTEM SODIUM 142 135 - 145 mmol/L INTERFACE SYSTEM POTASSIUM 3.9 3.5 - 4.9 mmol/L INTERFACE SYSTEM CHLORIDE 106 96 - 108 mmol/L INTERFACE SYSTEM CO2 29 22 - 30 mmol/L INTERFACE SYSTEM 06/09/2005 1:23 PM CDT Wallace Anthony MD CHEMISTRY ORDERABLES INTERFACE SYSTEM Refer to clinic/hospital department * BETA 2 MICROGLOBULIN, SERUM (06/09/2005 1:23 PM CDT) BETA 2 MICROGLOBULIN, SERUM 1.71 < OR = 1.85 mg/L INTERFACE SYSTEM Comment: Lab test performed by: [facility] [address] MARQUISE LAWSON MD 06/09/2005 1:23 PM CDT Wallace Anthony MD CHEMISTRY ORDERABLES Performing Organization Address City/[facility] Co de Phone Number INTERFACE SYSTEM Refer to clinic/hospital department documented in this encounter Visit Diagnoses Diagnosis Other malignant lymphomas, unspecified site, extranodal and solid organ sites- Primary documented in this encounter Care Teams Graphic Art Designer Relationship Specialty [place] [address] [place] [address] PCP - General 07/14/04 documented as of this encounter
--- OUTSIDE RECORDS SUMMARY | 2024-10-25 03:08 | XMS_ITS | Encounter Summary ---
Author Organization [facility] Address [address] [place] [address] Care Team Providers Care Hand Roller Engraver Name Role Phone Liberty Hernandez MD Primary Care Provider [phone] Encounter Details Date Type Department Care Team (Latest Contact Info) Description 06/30/2010 9:11 AM CDT - 06/30/2010 11:59 PM CDT Hospital Encounter 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 documented in this encounter Results * COMPREHENSIVE METABOLIC PANEL (06/30/2010 9:17 AM CDT) SODIUM 138 135 - 145 mmol/L [facility] POTASSIUM 4.2 3.5 - 4.9 mmol/L [facility] CHLORIDE 105 96 - 108 mmol/L [facility] CO2 24 22 - 30 mmol/L [facility] CALCIUM 9.7 8.6 - 10.2 mg/dL [facility] BUN 20 6 - 20 mg/dL [facility] CREATININE 0.71 0.51 - 0.95 mg/dL [facility] GLUCOSE 68 65 - 99 mg/dL [facility] TOTAL PROTEIN 7.0 6.3 - 8.6 g/dL [facility] ALBUMIN 4.5 3.4 - 4.8 g/dL [facility] BILIRUBIN TOTAL 0.2 0.2 - 1.0 mg/dL [facility] ALKALINE PHOSPHATASE 65 35 - 104 U/L [facility] AST 27 12 - 32 U/L [facility] ALT 19 0 - 31 U/L [facility] GFR, >60 >=60 mL/min/1.7 sq meter [facility] GFR >60 >=60 mL/min/1.7 sq meter [facility] Comment: Modification of Diet in Renal Disease (MDRD) study formula. Estimated GFR rate interpretative information for both Americans and non- Americans is available on the [facility] Intranet at: [email or web address] Select: Lab Policies and Procedures Select: Reference Ranges - GFR Blood specimen (specimen) 06/30/2010 9:17 AM CDT 06/30/2010 9:22 AM CDT Wallace Anthony MD CHEMISTRY ORDERABLES [facility] CLIA# [id number] [address] [facility] [address] [place] [address] * (ABNORMAL) CBC WITH DIFFERENTIAL (06/30/2010 9:17 AM CDT) WBC 7.0 4.0 - 9.8 K/uL [facility] RBC 3.96 3.90 - 4.90 M/uL [facility] HEMOGLOBIN 12.7 11.8 - 14.8 g/dL [facility] HEMATOCRIT 36.8 35.5 - 44.0 % [facility] MCV 92.9 82.0 - 99.0 fL [facility] MCH 32.1 27.2 - 32.6 pg [facility] MCHC 34.5 31.5 - 35.5 % [facility] PLATELETS 270 140 - 350 K/uL [facility] MPV 9.1(L) 9.3 - 12.4 fL [facility] RDW 12.3 11.5 - 14.5 % [facility] RDW-STDEV 41.6 37.1 - 48.7 fL [facility] NEUTROPHILS 56 45 - 70 % [facility] LYMPHOCYTES 31 16 - 45 % [facility] MONOCYTES 11 3 - 13 % [facility] EOSINOPHILS 1 0 - 7 % [facility] BASOPHILS 0 0 - 2 % [facility] NEUTROPHIL ABSOLUTE 3.92 1.90 - 7.00 K/uL [facility] LYMPHOCYTE ABSOLUTE 2.18 0.70 - 4.50 K/uL [facility] MONOCYTE ABSOLUTE 0.78 0.10 - 1.30 K/uL [facility] EOSINOPHIL ABSOLUTE 0.08 0.00 - 0.70 K/uL [facility] BASOPHILS ABSOLUTE 0.02 0.00 - 0.20 K/uL [facility] Blood specimen (specimen) 06/30/2010 9:17 AM CDT 06/30/2010 9:22 AM CDT Wallace Anthony MD HEMATOLOGY ORDERABLE S [facility] CLIA# [id number] [address] [place] [address] documented in this encounter Visit Diagnoses Diagnosis 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
--- OUTSIDE RECORDS SUMMARY | 2024-10-25 03:08 | XMS_ITS | Encounter Summary ---
Author Organization [facility] Address [address] [place] [address] Care Team Providers Care Spring Former Hand Name Role Phone Liberty Hernandez MD Primary Care Provider [phone] Encounter Details Date Type Department Care Team (Late st Contact Info) Description 03/05/2006 Outpatient Historical [facility] Wallace Anthony MD NO ADDRESS [...] on filedocumented in this encounter Care Teams Spring Former Hand Relationship Specialty [place] [address] [place] [address] PCP - General 07/14/04 documented as of this encounter
--- OUTSIDE RECORDS SUMMARY | 2024-10-25 03:08 | XMS_ITS | Encounter Summary ---
Author Organization [facility] Address [address] [place] [address] Care Team Providers Care Emergency Department Physician Name Role Phone Liberty Hernandez MD Primary Care Provider [phone] Encounter Details Date Type Department Care Team (Latest Contact Info) Description 12/14/2010 2:09 PM BAR GAUGER AND LUBRICATOR TENDER - 12/14/2010 11:59 PM BAR GAUGER AND LUBRICATOR TENDER Hospital Encounter [facility] Laboratory Services [facility] [address] [facility] [address] [place] [address] Wallace Anthony MD NO ADDRESS [...] Associated Diagnosis Comments CBC WITH DIFFERENTIAL Stat 12/14/2010 2:17 PM BAR GAUGER AND LUBRICATOR TENDER Lymphomas NEC extranodal/NOS COMPREHENSIVE METABOLIC PANEL Stat 12/14/2010 2:17 PM BAR GAUGER AND LUBRICATOR TENDER Lymphomas NEC extranodal/NOS documented in this encounter Results * COMPREHENSIVE METABOLIC PANEL (12/14/2010 2:17 PM BAR GAUGER AND LUBRICATOR TENDER) SODIUM 136 135 - 145 mmol/L [facility] POTASSIUM 4.0 3.5 - 4.9 mmol/L [facility] CHLORIDE 102 96 - 108 mmol/L [facility] CO2 27 22 - 30 mmol/L [facility] CALCIUM 9.8 8.6 - 10.2 mg/dL [facility] BUN 20 6 - 20 mg/dL [facility] CREATININE 0.65 0.51 - 0.95 mg/dL [facility] GLUCOSE 89 65 - 99 mg/dL [facility] TOTAL PROTEIN 7.4 6.3 - 8.6 g/dL [facility] ALBUMIN 4.8 3.4 - 4.8 g/dL [facility] BILIRUBIN TOTAL 0.2 0.2 - 1.0 mg/dL [facility] ALKALINE PHOSPHATASE 67 35 - 104 U/L [facility] AST 31 12 - 32 U/L [facility] ALT 27 0 - 31 U/L [facility] GFR, >60 >=60 mL/min/1.7 sq meter [facility] GFR >60 >=60 mL/min/1.7 sq meter [facility] Comment: Modification of Diet in Renal Disease (MDRD) study formula. Estimated GFR rate interpretative information for both Americans and non- Americans is available on the [facility] Intranet at: [email or web address] Select: Lab Policies and Procedures Select: Reference Ranges - GFR Blood specimen (specimen) 12/14/2010 2:17 PM BAR GAUGER AND LUBRICATOR TENDER 12/14/2010 2:28 PM BAR GAUGER AND LUBRICATOR TENDER Wallace Anthony MD CHEMISTRY ORDERABLES [facility] CLIA# [id number] [address] [place] [address] * (ABNORMAL) CBC WITH DIFFERENTIAL (12/14/2010 2:17 PM BAR GAUGER AND LUBRICATOR TENDER) WBC 6.6 4.0 - 9.8 K/uL [facility] RBC 4.06 3.90 - 4.90 M/uL [facility] HEMOGLOBIN 12.9 11.8 - 14.8 g/dL [facility] HEMATOCRIT 37.7 35.5 - 44.0 % [facility] MCV 92.9 82.0 - 99.0 fL [facility] MCH 31.8 27.2 - 32.6 pg [facility] MCHC 34.2 31.5 - 35.5 % [facility] PLATELETS 317 140 - 350 K/uL [facility] MPV 9.1(L) 9.3 - 12.4 fL [facility] RDW 12.6 11.5 - 14.5 % [facility] RDW-STDEV 42.9 37.1 - 48.7 fL [facility] NEUTROPHILS 47 45 - 70 % [facility] LYMPHOCYTES 40 16 - 45 % [facility] MONOCYTES 12 3 - 13 % [facility] EOSINOPHILS 1 0 - 7 % [facility] BASOPHILS 1 0 - 2 % [facility] NEUTROPHIL ABSOLUTE 3.13 1.90 - 7.00 K/uL [facility] LYMPHOCYTE ABSOLUTE 2.62 0.70 - 4.50 K/uL [facility] MONOCYTE ABSOLUTE 0.77 0.10 - 1.30 K/uL [facility] EOSINOPHIL ABSOLUTE 0.05 0.00 - 0.70 K/uL [facility] BASOPHILS ABSOLUTE 0.03 0.00 - 0.20 K/uL [facility] Blood specimen (specimen) 12/14/2010 2:17 PM BAR GAUGER AND LUBRICATOR TENDER 12/14/2010 2:28 PM BAR GAUGER AND LUBRICATOR TENDER Wallace Anthony MD HEMATOLOGY ORDERABLE S [facility] CLIA# [id number] [address] [place] [address] documented in this encounter Visit Diagnoses Diagnosis Other malignant lymphomas, unspecified site, extranodal and solid organ sites documented in this encounter Care Teams Emergency Department Physician Relationship Specialty [place] [address] [place] [address] PCP - General 07/14/04 documented as of this encounter
--- OUTSIDE RECORDS SUMMARY | 2024-10-25 03:08 | XMS_ITS | Encounter Summary ---
Author Organization [facility] Address [address] [place] [address] Care Team Providers Care Edge Grinder Name Role Phone Liberty Hernandez MD Primary Care Provider [phone] Encounter Details Date Type Department Care Team (Late st Contact Info) Description 07/09/2006 Outpatient Historical [facility] Wallace Anthony MD [...] on filedocumented in this encounter Care Teams Edge Grinder Relationship Specialty [place] [address] [place] [address] PCP - General 07/14/04 documented as of this encounter
--- OUTSIDE RECORDS SUMMARY | 2024-10-25 03:08 | XMS_ITS | Encounter Summary ---
Author Organization [employer] Address [address] [place] [address] Care Team Providers Care Composing Room Machinist Name Role Phone Liberty Hernandez MD Primary Care Provider [phone] Encounter Details Date Type Department Care Team (Latest Contact Info) Description 06/28/2011 1:57 PM CDT - 06/28/2011 11:59 PM CDT Hospital Encounter [facility] Laboratory Services [facility] [address] [facility] [facility], [facility] [address] [place] [address] Wallace Anthony MD NO ADDRESS [...] Associated Diagnosis Comments CBC WITH DIFFERENTIAL Stat 06/28/2011 2:03 PM CDT Lymphomas NEC extranodal/NOS COMPREHENSIVE METABOLIC PANEL Stat 06/28/2011 2:03 PM CDT Lymphomas NEC extranodal/NOS documented in this encounter Results * COMPREHENSIVE METABOLIC PANEL (06/28/2011 2:03 PM CDT) SODIUM 142 135 - 145 mmol/L [facility] POTASSIUM 3.8 3.5 - 4.9 mmol/L [facility] CHLORIDE 104 96 - 108 mmol/L [facility] CO2 28 22 - 30 mmol/L [facility] CALCIUM 9.8 8.6 - 10.2 mg/dL [facility] BUN 14 6 - 20 mg/dL [facility] CREATININE 0.65 0.51 - 0.95 mg/dL [facility] GLUCOSE 89 65 - 99 mg/dL [facility] TOTAL PROTEIN 7.3 6.3 - 8.6 g/dL [facility] ALBUMIN 4.7 3.4 - 4.8 g/dL [facility] BILIRUBIN TOTAL 0.3 0.2 - 1.0 mg/dL [facility] ALKALINE PHOSPHATASE 74 35 - 104 U/L [facility] AST 31 12 - 32 U/L [facility] ALT 21 0 - 31 U/L [facility] GFR, >60 >=60 mL/min/1. 7 sq meter [facility] GFR >60 >=60 mL/min/1. 7 sq meter [facility] Comment: GFR is calculated using the IDMS-Traceable Modification of Diet in Renal Disease (MDRD) Study formula and is only valid for patients 18 years or older. Further interpretative information is available in the Laboratory Services Policy Manual on the [facility] Intranet at: [email or web address]/ Blood specimen (specimen) 06/28/2011 2:03 PM CDT 06/28/2011 2:16 PM CDT Wallace Anthony MD CHEMISTRY ORDERABLES [facility] CLIA# [id number] [address] [facility] [place] [address] * (ABNORMAL) CBC WITH DIFFERENTIAL (06/28/2011 2:03 PM CDT) WBC 6.5 4.0 - 9.8 K/uL [facility] RBC 3.91 3.90 - 4.90 M/uL [facility] HEMOGLOBIN 12.6 11.8 - 14.8 g/dL [facility] HEMATOCRIT 35.0(L) 35.5 - 44.0 % [facility] MCV 89.5 82.0 - 99.0 fL [facility] MCH 32.2 27.2 - 32.6 pg [facility] MCHC 36.0(H) 31.5 - 35.5 % [facility] PLATELETS 299 140 - 350 K/uL [facility] MPV 8.8(L) 9.3 - 12.4 fL [facility] RDW 12.4 11.5 - 14.5 % [facility] RDW-STDEV 40.2 37.1 - 48.7 fL [facility] NEUTROPHILS 52 45 - 70 % [facility] LYMPHOCYTES 36 16 - 45 % [facility] MONOCYTES 10 3 - 13 % [facility] EOSINOPHILS 2 0 - 7 % [facility] BASOPHILS 0 0 - 2 % [facility] NEUTROPHIL ABSOLUTE 3.41 1.90 - 7.00 K/uL [facility] LYMPHOCYTE ABSOLUTE 2.33 0.70 - 4.50 K/uL [facility] MONOCYTE ABSOLUTE 0.67 0.10 - 1.30 K/uL [facility] EOSINOPHIL ABSOLUTE 0.11 0.00 - 0.70 K/uL [facility] BASOPHILS ABSOLUTE 0.02 0.00 - 0.20 K/uL [facility] Blood specimen (specimen) 06/28/2011 2:03 PM CDT 06/28/2011 2:03 PM CDT Wallace Anthony MD HEMATOLOGY ORDERABLE S [facility] CLIA# [id number] [address] [place], [place] [address] documented in this encounter Visit Diagnoses Diagnosis Other malignant lymphomas, unspecified site, extranodal and solid organ sites documented in this encounter Care Teams Composing Room Machinist Relationship Specialty [place] [address] [place] [address] PCP - General 07/14/04 documented as of this encounter
--- OUTSIDE RECORDS SUMMARY | 2024-10-25 03:08 | XMS_ITS | Encounter Summary ---
Author Organization [facility] Address [address] [place] [address] Care Team Providers Care Potline Monitor Name Role Phone Liberty Hernandez MD Primary Care Provider [phone] Encounter Details Date Type Department Care Team (Latest Contact Info) Description 08/15/2007 Outpatient Historical [facility] Wallace Anthony [...] Associated Diagnosis Comments CBC WITH DIFFERENTIAL Routine 08/15/2007 9:42 AM CDT CBC WITH DIFFERENTIAL Routine 08/15/2007 9:42 AM CDT COMPREHENSIVE METABOLIC PANEL Routine 08/15/2007 9:42 AM CDT documented in this encounter Results * (ABNORMAL) CBC WITH DIFFERENTIAL (08/15/2007 9:42 AM CDT) NEUTROPHILS 59 45 - 70 % INTERFAC E SYSTEM LYMPHOCYTES 23 16 - 45 % [facility] MONOCYTES 16(H) 3 - 13 % INTERFACE SYSTEM EOSINOPHILS 1 0 - 7 % INTERFAC E SYSTEM BASOPHILS 1 0 - 2 % INTERFACE SYSTEM NEUTROPHIL ABSOLUTE 3.12 1.90 - 7.00 K/uL INTER[facility] SYSTEM LYMPHOCYTE ABSOLUTE 1.24 0.70 - 4.50 K/uL [facility] SYSTEM MONOCYTE ABSOLUTE 0.86 0.10 - 1.30 K/uL INTER[facility] SYSTEM EOSINOPHIL ABSOLUTE 0.07 0.00 - 0.70 K/uL INTERFACE SYSTEM BASOPHILS ABSOLUTE 0.03 0.00 - 0.20 K/uL INTERFACE SYSTEM 08/15/2007 9:42 AM CDT Wallace Anthony MD HEMATOLOGY ORDERABLE S Performing Organization Address [facility] Phone Number INTERFACE SYSTEM Refer to clinic/hospital department * (ABNORMAL) CBC WITH DIFFERENTIAL (08/15/2007 9:42 AM CDT) WBC 5.3 4.0 - 9.8 K/uL [facility] RBC 4.30 3.90 - 4.90 M/uL [facility] HEMOGLOBIN 13.9 11.8 - 14.8 g/dL [facility] HEMATOCRIT 39.5 35.5 - 44.0 % INTER[facility] SYSTEM MCV 91.9 82.0 - 99.0 fL [facility] MCH 32.3 27.2 - 32.6 pg INTERFACE SYSTEM MCHC 35.2 31.5 - 35.5 % INTERFACE SYSTEM RDW 12.3 11.5 - 14.5 % INTERFACE SYSTEM RDW-STDEV 40.5 37.1 - 48.7 fL INTER[facility] SYSTEM PLATELETS 323 140 - 350 K/uL INTER[facility] MPV 8.9(L) 9.3 - 12.4 fL INTERFACE SYSTEM 08/15/2007 9:42 AM CDT Wallace Anthony MD HEMATOLOGY ORDERABLE S Performing Organization Address [facility] Phone Number INTERFACE SYSTEM Refer to clinic/hospital department * (ABNORMAL) COMPREHENSIVE METABOLIC PANEL (08/15/2007 9:42 AM CDT) GLUCOSE 62(L) 65 - 99 mg/dL [facility] CREATININE 0.67 0.51 - 0.95 mg/dL [facility] CALCIUM 9.2 8.4 - 10.2 mg/dL [facility] ALKALINE PHOSPHATASE 74 35 - 104 U/L [facility] AST 29 12 - 32 U/L [facility] ALT 22 0 - 31 U/L [facility] TOTAL PROTEIN 7.3 6.3 - 8.6 g/dL [facility] ALBUMIN 4.6 3.4 - 4.8 g/dL [facility] BILIRUBIN TOTAL 0.3 0.2 - 1.0 mg/dL [facility] BUN 19 6 - 20 mg/dL INTER[facility] SYSTEM SODIUM 143 135 - 145 mmol/L INTER[facility] POTASSIUM 4.4 3.5 - 4.9 mmol/L [facility] CHLORIDE 107 96 - 108 mmol/L [facility] CO2 29 22 - 30 mmol/L INTER[facility] SYSTEM GFR, >60 >=60 mL/min/1.7 sq meter INTERFACE SYSTEM GFR >60 >=60 mL/min/1.7 sq meter INTERFACE SYSTEM Comment: Estimated GFR rate interpretative information for both Americans and non- Americans is available on the [facility] Intranet at: [email or web address] Select: Lab Policies and Procedures Select: Reference Ranges - GFR 08/15/2007 9:42 AM CDT Wallace Anthony MD CHEMISTRY ORDERABLES INTERFACE SYSTEM Refer to clinic/hospital department documented in this encounter Visit Diagnoses Diagnosis Other malignant lymphomas, unspecified site, extranodal and solid organ sites- Primary documented in this encounter Care Teams Potline Monitor Relationship Specialty [place] [address] [place] [address] PCP - General 07/14/04 documented as of this encounter
--- OUTSIDE RECORDS SUMMARY | 2024-10-25 03:08 | XMS_ITS | Encounter Summary ---
Author Organization [facility] Address [address] [place] [address] Care Team Providers Care Non Destructive Evaluation Manager Name Role Phone Liberty Hernandez MD Primary Care Provider [phone] Encounter Details Date Type Department Care Team (Latest Contact Info) Description 12/19/2007 Outpatient Historical [facility] Wallace Anthony MD NO ADDRESS ON FILE Lymphomas NEC Extranodal/NOS Social History Tobacco Use Types Packs/Day Years [...] Associated Diagnosis Comments CBC WITH DIFFERENTIAL Stat 12/19/2007 2:09 PM RELATIONSHIP ADVISOR COMPREHENSIVE METABOLIC PANEL Stat 12/19/2007 2:09 PM RELATIONSHIP ADVISOR documented in this encounter Results * COMPREHENSIVE METABOLIC PANEL (12/19/2007 2:09 PM RELATIONSHIP ADVISOR) BUN 14 6 - 20 mg/dL [facility] CALCIUM 8.8 8.4 - 10.2 mg/dL [facility] CHLORIDE 104 96 - 108 mmol/L [facility] ALBUMIN 4.4 3.4 - 4.8 g/dL [facility] CREATININE 0.66 0.51 - 0.95 mg/dL [facility] SODIUM 140 135 - 145 mmol/L [facility] ALT 22 0 - 31 U/L [facility] ALKALINE PHOSPHATASE 65 35 - 104 U/L [facility] BILIRUBIN TOTAL 0.3 0.2 - 1.0 mg/dL [facility] CO2 27 22 - 30 mmol/L [facility] TOTAL PROTEIN 6.7 6.3 - 8.6 g/dL [facility] POTASSIUM 3.6 3.5 - 4.9 mmol/L [facility] GLUCOSE 93 65 - 99 mg/dL [facility] AST 26 12 - 32 U/L [facility] GFR, >60 >=60 mL/min/1.7 sq meter [facility] GFR >60 >=60 mL/min/1.7 sq meter [facility] Comment: Estimated GFR rate interpretative information for both Americans and non- Americans is available on the [facility] Intranet at: [email or web address] Select: Lab Policies and Procedures Select: Reference Ranges - GFR Blood specimen (specimen) 12/19/2007 2:09 PM RELATIONSHIP ADVISOR 12/19/2007 2:11 PM RELATIONSHIP ADVISOR Wallace Anthony MD CHEMISTRY ORDERABLES [facility] [address] [place] [address] * (ABNORMAL) CBC WITH DIFFERENTIAL (12/19/2007 2:09 PM RELATIONSHIP ADVISOR) MCHC 34.9 31.5 - 35.5 % [facility] MCV 93.2 82.0 - 99.0 fL [facility] PLATELETS 286 140 - 350 K/uL [facility] HEMOGLOBIN 12.5 11.8 - 14.8 g/dL [facility] RDW 12.4 11.5 - 14.5 % [facility] WBC 5.6 4.0 - 9.8 K/uL [facility] MCH 32.6 27.2 - 32.6 pg [facility] MPV 8.8(L) 9.3 - 12.4 fL [facility] HEMATOCRIT 35.8 35.5 - 44.0 % [facility] RDW-STDEV 40.9 37.1 - 48.7 fL [facility] RBC 3.84(L) 3.90 - 4.90 M/uL [facility] NEUTROPHILS 47 45 - 70 % [facility] NEUTROPHIL ABSOLUTE 2.61 1.90 - 7.00 K/uL [facility] EOSINOPHILS 1 0 - 7 % [facility] EOSINOPHIL ABSOLUTE 0.08 0.00 - 0.70 K/uL [facility] LYMPHOCYTES 39 16 - 45 % [facility] LYMPHOCYTE ABSOLUTE 2.14 0.70 - 4.50 K/uL [facility] BASOPHILS 1 0 - 2 % [facility] BASOPHILS ABSOLUTE 0.03 0.00 - 0.20 K/uL [facility] MONOCYTES 13 3 - 13 % [facility] MONOCYTE ABSOLUTE 0.70 0.10 - 1.30 K/uL [facility] Blood specimen (specimen) 12/19/2007 2:09 PM RELATIONSHIP ADVISOR 12/19/2007 2:11 PM RELATIONSHIP ADVISOR Wallace Anthony MD HEMATOLOGY ORDERABLE S INTERFACE SYSTEM Refer to clinic/hospital department [facility] [address] [place] [address] documented in this encounter Visit Diagnoses Diagnosis Other malignant lymphomas, unspecified site, extranodal and solid organ sites documented in this encounter Care Teams Non Destructive Evaluation Manager Relationship Specialty [place] [address] [place] [address] PCP - General 07/14/04 documented as of this encounter
--- OUTSIDE RECORDS SUMMARY | 2024-10-25 03:08 | XMS_ITS | Encounter Summary ---
Author Organization [facility] Address [address] [place] [address] Care Team Providers Care Barrel Assembly Inspector Name Role Phone Liberty Hernandez MD Primary Care Provider [phone] Encounter Details Date Type Department Care Team (Late st Contact Info) Description 05/18/2005 Outpatient Historical [facility] Ant Bowling MD [address] [address] LYMPHOMAS NEC HEAD (Primary Dx) Social History Tobacco Use Types Packs/Day Years Used Date Smoking Tobacco: Never Assessed Sex and Gender Information Value Date Recorded Sex Assigned at Not on file Gender Identity Not on file Sexual Orientation Not on file documented as of this encounter Plan of Treatment Not on file documented as of this encounter Procedures Procedure Name Priority Date/Time Associated Diagnosis Comments HEMOGLOBIN AND HEMATOCRIT Routine 05/04/2005 9:33 AM CDT documented in this encounter Results * HEMOGLOBIN AND HEMATOCRIT (05/04/2005 9:33 AM CDT) HEMOGLOBIN 12.7 11.8 - 14.8 g/dL INTERFACE SYSTEM HEMATOCRIT 36.5 35.5 - 44.0 % INTERFACE SYSTEM 05/04/2005 9:33 AM CDT Ant Bowling MD HEMATOLOGY ORDERABLE S INTERFACE SYSTEM Refer to clinic/hospital department documented in this encounter Visit Diagnoses Diagnosis 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
--- OUTSIDE RECORDS SUMMARY | 2024-10-25 03:08 | XMS_ITS | Encounter Summary ---
Author Organization [facility] Address [address] [place] [address] Care Team Providers Care Cost And Sales Record Supervisor Name Role Phone Liberty Hernandez MD Primary Care Provider [phone] Encounter Details Date Type Department Care Team (Latest Contact Info) Description 04/18/2007 Outpatient Historical [facility] Wallace Anthony [...] Associated Diagnosis Comments CBC WITH DIFFERENTIAL Routine 04/18/2007 9:30 AM CDT CBC WITH DIFFERENTIAL Routine 04/18/2007 9:30 AM CDT COMPREHENSIVE METABOLIC PANEL Routine 04/18/2007 9:30 AM CDT documented in this encounter Results * (ABNORMAL) CBC WITH DIFFERENTIAL (04/18/2007 9:30 AM CDT) NEUTROPHILS 57 45 - 70 % INTERFAC E SYSTEM LYMPHOCYTES 26 16 - 45 % INTERFAC E SYSTEM MONOCYTES 14(H) 3 - 13 % INTERFACE SYSTEM EOSINOPHILS 2 0 - 7 % INTERFAC E SYSTEM BASOPHILS 1 0 - 2 % INTERFACE SYSTEM NEUTROPHIL ABSOLUTE 2.49 1.90 - 7.00 K/uL INTERFACE SYSTEM LYMPHOCYTE ABSOLUTE 1.14 0.70 - 4.50 K/uL INTERFACE SYSTEM MONOCYTE ABSOLUTE 0.61 0.10 - 1.30 K/uL INTERFACE SYSTEM EOSINOPHIL ABSOLUTE 0.08 0.00 - 0.70 K/uL INTERFACE SYSTEM BASOPHILS ABSOLUTE 0.02 0.00 - 0.20 K/uL INTERFACE SYSTEM 04/18/2007 9:30 AM CDT Wallace Anthony MD HEMATOLOGY ORDERABLE S Performing Organization Address [facility] Phone Number INTERFACE SYSTEM Refer to clinic/hospital department * (ABNORMAL) CBC WITH DIFFERENTIAL (04/18/2007 9:30 AM CDT) WBC 4.3 4.0 - 9.8 K/uL INTERFACE SYSTEM RBC 3.87(L) 3.90 - 4.90 M/uL INTERFACE SYSTEM HEMOGLOBIN 12.5 11.8 - 14.8 g/dL INTERFACE SYSTEM HEMATOCRIT 35.5 35.5 - 44.0 % INTERFACE SYSTEM MCV 91.7 82.0 - 99.0 fL INTERFACE SYSTEM MCH 32.3 27.2 - 32.6 pg INTERFACE SYSTEM MCHC 35.2 31.5 - 35.5 % INTERFACE SYSTEM RDW 12.3 11.5 - 14.5 % INTERFACE SYSTEM RDW-STDEV 40.7 37.1 - 48.7 fL INTERFACE SYSTEM PLATELETS 285 140 - 350 K/uL INTERFACE SYSTEM MPV 8.9(L) 9.3 - 12.4 fL INTERFACE SYSTEM 04/18/2007 9:30 AM CDT Wallace Anthony MD HEMATOLOGY ORDERABLE S Performing Organization Address [facility] Phone Number INTERFACE SYSTEM Refer to clinic/hospital department * (ABNORMAL) COMPREHENSIVE METABOLIC PANEL (04/18/2007 9:30 AM CDT) GLUCOSE 83 65 - 99 mg/dL INTERFACE SYSTEM CREATININE 0.62 0.51 - 0.95 mg/dL INTERFACE SYSTEM CALCIUM 9.1 8.4 - 10.2 mg/dL INTERFACE SYSTEM ALKALINE PHOSPHATASE 73 35 - 104 U/L INTERFACE SYSTEM AST 23 12 - 32 U/L INTERFACE SYSTEM ALT 23 0 - 31 U/L INTERFACE SYSTEM TOTAL PROTEIN 6.6 6.3 - 8.6 g/dL INTERFACE SYSTEM ALBUMIN 4.0 3.4 - 4.8 g/dL INTERFACE SYSTEM BILIRUBIN TOTAL 0.1(L) 0.2 - 1.0 mg/dL INTERFACE SYSTEM BUN 14 6 - 20 mg/dL INTERFACE SYSTEM SODIUM 140 135 - 145 mmol/L INTERFACE SYSTEM POTASSIUM 4.3 3.5 - 4.9 mmol/L INTERFACE SYSTEM CHLORIDE 105 96 - 108 mmol/L INTERFACE SYSTEM CO2 27 22 - 30 mmol/L INTERFACE SYSTEM GFR, >60 >=60 mL/min/1. 7 sq meter INTERFACE SYSTEM GFR >60 >=60 mL/min/1. 7 sq meter INTERFACE SYSTEM Comment: Estimated GFR rate interpretative information for both Americans and non- Americans is available on the [facility] Intranet at: [email or web address] Select: Lab Policies and Procedures Select: Reference Ranges - GFR 04/18/2007 9:30 AM CDT Wallace Anthony MD CHEMISTRY ORDERABLES INTERFACE SYSTEM Refer to clinic/hospital department documented in this encounter Visit Diagnoses Diagnosis Other malignant lymphomas, unspecified site, extranodal and solid organ sites- Primary documented in this encounter Care Teams Cost And Sales Record Supervisor Relationship Specialty [place] [address] [place] [address] PCP - General 07/14/04 documented as of this encounter
--- OUTSIDE RECORDS SUMMARY | 2024-10-25 03:08 | XMS_ITS | Encounter Summary ---
Author Organization [employer] [facility] Address [address] [place] [address] Care Team Providers Care Atm Technician Name Role Phone Liberty Hernandez MD Primary Care Provider [phone] Encounter Details Date Type Department Care Team (Latest Contact Info) Description 07/11/2005 Outpatient Historical [facility] Wallace Anthony [...] Associated Diagnosis Comments CBC WITH DIFFERENTIAL Routine 08/03/2005 8:31 AM CDT CBC WITH DIFFERENTIAL Routine 08/03/2005 8:31 AM CDT COMPREHENSIVE METABOLIC PANEL Routine 08/03/2005 8:31 AM CDT CBC WITH DIFFERENTIAL Routine 07/26/2005 2:42 PM CDT CBC WITH DIFFERENTIAL Routine 07/26/2005 2:42 PM CDT CBC WITH DIFFERENTIAL Routine 07/14/2005 12:05 PM CDT CBC WITH DIFFERENTIAL Routine 07/14/2005 12:05 PM CDT COMPREHENSIVE METABOLIC PANEL Routine 07/14/2005 12:05 PM CDT documented in this encounter Results * (ABNORMAL) CBC WITH DIFFERENTIAL (08/03/2005 8:31 AM CDT) NEUTROPHILS 48 45 - 70 % INTERFAC E SYSTEM LYMPHOCYTES 26 16 - 45 % INTERFAC E SYSTEM MONOCYTES 23(H) 3 - 13 % INTERFACE SYSTEM EOSINOPHILS 2 0 - 7 % INTERFAC E SYSTEM BASOPHILS 1 0 - 2 % INTERFACE SYSTEM NEUTROPHIL ABSOLUTE 1.81(L) 1.90 - 7.00 K/uL INTERFACE SYSTEM LYMPHOCYTE ABSOLUTE 0.96 0.70 - 4.50 K/uL INTERFACE SYSTEM MONOCYTE ABSOLUTE 0.86 0.10 - 1.30 K/uL INTERFACE SYSTEM EOSINOPHIL ABSOLUTE 0.08 0.00 - 0.70 K/uL INTERFACE SYSTEM BASOPHILS ABSOLUTE 0.04 0.00 - 0.20 K/uL INTERFACE SYSTEM 08/03/2005 8:31 AM CDT Wallace Anthony MD HEMATOLOGY ORDERABLE S Performing Organization Address [facility] Phone Number INTERFACE SYSTEM Refer to clinic/hospital department * (ABNORMAL) CBC WITH DIFFERENTIAL (08/03/2005 8:31 AM CDT) WBC 3.8(L) 4.0 - 9.8 K/uL INTERFACE SYSTEM RBC 4.21 3.90 - 4.90 M/uL INTERFACE SYSTEM HEMOGLOBIN 13.7 11.8 - 14.8 g/dL INTERFACE SYSTEM HEMATOCRIT 38.5 35.5 - 44.0 % INTERFACE SYSTEM MCV 91.4 82.0 - 99.0 fL INTERFACE SYSTEM MCH 32.5 27.2 - 32.6 pg INTERFACE SYSTEM MCHC 35.6(H) 31.5 - 35.5 % INTERFACE SYSTEM RDW 12.9 11.5 - 14.5 % INTERFACE SYSTEM RDW-STDEV 41.9 37.1 - 48.7 fL INTERFACE SYSTEM PLATELETS 439(H) 140 - 350 K/uL INTERFACE SYSTEM MPV 8.4(L) 9.3 - 12.4 fL INTERFACE SYSTEM 08/03/2005 8:31 AM CDT Wallace Anthony MD HEMATOLOGY ORDERABLE S Performing Organization Address [facility] de Phone Number INTERFACE SYSTEM Refer to clinic/hospital department * COMPREHENSIVE METABOLIC PANEL (08/03/2005 8:31 AM CDT) Pathologist [facility] GLUCOSE 72 65 - 109 mg/dL INTERFACE SYSTEM CREATININE 0.7 0.4 - 1.2 mg/dL INTERFACE SYSTEM CALCIUM 9.5 8.6 - 10.2 mg/dL INTERFACE SYSTEM AST 25 12 - 32 U/L INTERFACE SYSTEM ALKALINE PHOSPHATASE 61 35 - 104 U/L INTERFACE SYSTEM BUN 15 6 - 20 mg/dL INTERFACE SYSTEM BILIRUBIN TOTAL 0.5 0.2 - 1.0 mg/dL INTERFACE SYSTEM ALBUMIN 4.4 3.4 - 4.8 g/dL INTERFACE SYSTEM TOTAL PROTEIN 7.3 6.3 - 8.6 g/dL INTERFACE SYSTEM ALT 21 0 - 31 U/L INTERFACE SYSTEM SODIUM 141 135 - 145 mmol/L INTERFACE SYSTEM POTASSIUM 4.2 3.5 - 4.9 mmol/L INTERFACE SYSTEM CHLORIDE 107 96 - 108 mmol/L INTERFACE SYSTEM CO2 30 22 - 30 mmol/L INTERFACE SYSTEM 08/03/2005 8:31 AM CDT Wallace Anthony MD CHEMISTRY ORDERABLES Performing Organization Address [facility] Phone Number INTERFACE SYSTEM Refer to clinic/hospital department * (ABNORMAL) CBC WITH DIFFERENTIAL (07/26/2005 2:42 PM CDT) Pathologist [facility] NEUTROPHILS 50 45 - 70 % INTERFAC E SYSTEM LYMPHOCYTES 24 16 - 45 % INTERFAC E SYSTEM MONOCYTES 24(H) 3 - 13 % INTERFACE SYSTEM EOSINOPHILS 1 0 - 7 % INTERFAC E SYSTEM BASOPHILS 1 0 - 2 % INTERFACE SYSTEM NEUTROPHIL ABSOLUTE 2.16 1.90 - 7.00 K/uL INTERFACE SYSTEM LYMPHOCYTE ABSOLUTE 1.05 0.70 - 4.50 K/uL INTERFACE SYSTEM MONOCYTE ABSOLUTE 1.02 0.10 - 1.30 K/uL INTERFACE SYSTEM EOSINOPHIL ABSOLUTE 0.05 0.00 - 0.70 K/uL INTERFACE SYSTEM BASOPHILS ABSOLUTE 0.03 0.00 - 0.20 K/uL INTERFACE SYSTEM 07/26/2005 2:42 PM CDT Wallace Anthony MD HEMATOLOGY ORDERABLE S Performing Organization Address [facility] Phone Number INTERFACE SYSTEM Refer to clinic/hospital department * (ABNORMAL) CBC WITH DIFFERENTIAL (07/26/2005 2:42 PM CDT) [facility] WBC 4.3 4.0 - 9.8 K/uL INTERFACE SYSTEM RBC 3.49(L) 3.90 - 4.90 M/uL INTERFACE SYSTEM HEMOGLOBIN 11.2(L) 11.8 - 14.8 g/dL INTERFACE SYSTEM HEMATOCRIT 31.9(L) 35.5 - 44.0 % INTERFACE SYSTEM MCV 91.4 82.0 - 99.0 fL INTERFACE SYSTEM MCH 32.1 27.2 - 32.6 pg INTERFACE SYSTEM MCHC 35.1 31.5 - 35.5 % INTERFACE SYSTEM RDW 12.7 11.5 - 14.5 % INTERFACE SYSTEM RDW-STDEV 40.5 37.1 - 48.7 fL INTERFACE SYSTEM PLATELETS 422(H) 140 - 350 K/uL INTERFACE SYSTEM MPV 8.4(L) 9.3 - 12.4 fL INTERFACE SYSTEM 07/26/2005 2:42 PM CDT Wallace Anthony MD HEMATOLOGY ORDERABLE S Performing Organization Address [facility] Phone Number INTERFACE SYSTEM Refer to clinic/hospital department * (ABNORMAL) CBC WITH DIFFERENTIAL (07/14/2005 12:05 PM CDT) [facility] NEUTROPHILS 60 45 - 70 % INTERFAC E SYSTEM LYMPHOCYTES 20 16 - 45 % INTERFAC E SYSTEM MONOCYTES 18(H) 3 - 13 % INTERFACE SYSTEM EOSINOPHILS 1 0 - 7 % INTERFAC E SYSTEM BASOPHILS 1 0 - 2 % INTERFACE SYSTEM NEUTROPHIL ABSOLUTE 3.61 1.90 - 7.00 K/uL INTERFACE SYSTEM LYMPHOCYTE ABSOLUTE 1.19 0.70 - 4.50 K/uL INTERFACE SYSTEM MONOCYTE ABSOLUTE 1.09 0.10 - 1.30 K/uL INTERFACE SYSTEM EOSINOPHIL ABSOLUTE 0.04 0.00 - 0.70 K/uL INTERFACE SYSTEM BASOPHILS ABSOLUTE 0.04 0.00 - 0.20 K/uL INTERFACE SYSTEM 07/14/2005 12:0 5 PM CDT Wallace Anthony MD HEMATOLOGY ORDERABLE S Performing Organization Address [facility] Phone Number INTERFACE SYSTEM Refer to clinic/hospital department * (ABNORMAL) CBC WITH DIFFERENTIAL (07/14/2005 12:05 PM CDT) WBC 6.0 4.0 - 9.8 K/uL INTERFACE SYSTEM RBC 4.09 3.90 - 4.90 M/uL INTERFACE SYSTEM HEMOGLOBIN 13.2 11.8 - 14.8 g/dL INTERFACE SYSTEM HEMATOCRIT 37.0 35.5 - 44.0 % INTERFACE SYSTEM MCV 90.5 82.0 - 99.0 fL INTERFACE SYSTEM MCH 32.3 27.2 - 32.6 pg INTERFACE SYSTEM MCHC 35.7(H) 31.5 - 35.5 % INTERFACE SYSTEM RDW 12.5 11.5 - 14.5 % INTERFACE SYSTEM RDW-STDEV 40.4 37.1 - 48.7 fL INTERFACE SYSTEM PLATELETS 377(H) 140 - 350 K/uL INTERFACE SYSTEM MPV 8.6(L) 9.3 - 12.4 fL INTERFACE SYSTEM 07/14/2005 12:0 5 PM CDT Wallace Anthony MD HEMATOLOGY ORDERABLE S INTERFACE SYSTEM Refer to clinic/hospital department * COMPREHENSIVE METABOLIC PANEL (07/14/2005 12:05 PM CDT) GLUCOSE 86 65 - 109 mg/dL INTERFACE SYSTEM CREATININE 0.8 0.4 - 1.2 mg/dL INTERFACE SYSTEM CALCIUM 9.5 8.6 - 10.2 mg/dL INTERFACE SYSTEM AST 25 12 - 32 U/L INTERFACE SYSTEM ALKALINE PHOSPHATASE 58 35 - 104 U/L INTERFACE SYSTEM BUN 17 6 - 20 mg/dL INTERFACE SYSTEM BILIRUBIN TOTAL 0.4 0.2 - 1.0 mg/dL INTERFACE SYSTEM ALBUMIN 4.6 3.4 - 4.8 g/dL INTERFACE SYSTEM TOTAL PROTEIN 7.5 6.3 - 8.6 g/dL INTERFACE SYSTEM ALT 19 0 - 31 U/L INTERFACE SYSTEM SODIUM 138 135 - 145 mmol/L INTERFACE SYSTEM POTASSIUM 4.2 3.5 - 4.9 mmol/L INTERFACE SYSTEM CHLORIDE 105 96 - 108 mmol/L INTERFACE SYSTEM CO2 26 22 - 30 mmol/L INTERFACE SYSTEM 07/14/2005 12:0 5 PM CDT Wallace Anthony MD CHEMISTRY ORDERABLES INTERFACE SYSTEM Refer to clinic/hospital department documented in this encounter Visit Diagnoses Diagnosis Other malignant lymphomas, unspecified site, extranodal and solid organ sites- Primary documented in this encounter Care Teams Atm Technician Relationship Specialty [place] [address] [place] [address] PCP - General 07/14/04 documented as of this encounter
--- OUTSIDE RECORDS SUMMARY | 2024-10-25 03:08 | XMS_ITS | Encounter Summary ---
Author Organization [facility] Address [address] [place] [address] Care Team Providers Care Client Care Consultant Name Role Phone Liberty Hernandez MD Primary Care Provider [phone] Encounter Details Date Type Department Care Team (Latest Contact Info) Description 02/01/2006 Outpatient Historical [facility] Wallace Anthony MD NO ADDRESS ON FILE Hemangioma of Other Sites (Primary Dx) Social History Tobacco Use [...] Associated Diagnosis Comments CBC WITH DIFFERENTIAL Routine 02/08/2006 11:05 AM CDT CBC WITH DIFFERENTIAL Routine 02/08/2006 11:05 AM CDT LACTATE DEHYDROGENASE Routine 02/08/2006 11:05 AM CDT COMPREHENSIVE METABOLIC PANEL Routine 02/08/2006 11:05 AM CDT documented in this encounter Results * (ABNORMAL) CBC WITH DIFFERENTIAL (02/08/2006 11:05 AM CDT) NEUTROPHILS 66 45 - 70 % INTERFAC E SYSTEM LYMPHOCYTES 16 16 - 45 % INTERFAC E SYSTEM MONOCYTES 17(H) 3 - 13 % INTERFACE SYSTEM EOSINOPHILS 1 0 - 7 % INTERFAC E SYSTEM BASOPHILS 0 0 - 2 % INTERFACE SYSTEM NEUTROPHIL ABSOLUTE 3.53 1.90 - 7.00 K/uL INTERFACE SYSTEM LYMPHOCYTE ABSOLUTE 0.83 0.70 - 4.50 K/uL INTERFACE SYSTEM MONOCYTE ABSOLUTE 0.88 0.10 - 1.30 K/uL INTERFACE SYSTEM EOSINOPHIL ABSOLUTE 0.07 0.00 - 0.70 K/uL INTERFACE SYSTEM BASOPHILS ABSOLUTE 0.02 0.00 - 0.20 K/uL INTERFACE SYSTEM 02/08/2006 11:0 5 AM CDT Wallace Anthony MD HEMATOLOGY ORDERABLE S Performing Organization Address [facility] Phone Number INTERFACE SYSTEM Refer to clinic/hospital department * (ABNORMAL) CBC WITH DIFFERENTIAL (02/08/2006 11:05 AM CDT) WBC 5.3 4.0 - 9.8 K/uL INTERFACE SYSTEM RBC 3.93 3.90 - 4.90 M/uL INTERFACE SYSTEM HEMOGLOBIN 12.8 11.8 - 14.8 g/dL INTERFACE SYSTEM HEMATOCRIT 35.9 35.5 - 44.0 % INTERFACE SYSTEM MCV 91.3 82.0 - 99.0 fL INTERFACE SYSTEM MCH 32.6 27.2 - 32.6 pg INTERFACE SYSTEM MCHC 35.7(H) 31.5 - 35.5 % INTERFACE SYSTEM RDW 12.2 11.5 - 14.5 % INTERFACE SYSTEM RDW-STDEV 40.5 37.1 - 48.7 fL INTERFACE SYSTEM PLATELETS 312 140 - 350 K/uL INTERFACE SYSTEM MPV 9.1(L) 9.3 - 12.4 fL INTERFACE SYSTEM 02/08/2006 11:0 5 AM CDT Wallace Anthony MD HEMATOLOGY ORDERABLE S Performing Organization Address [facility] Phone Number INTERFACE SYSTEM Refer to clinic/hospital department * (ABNORMAL) LACTATE DEHYDROGENASE (02/08/2006 11:05 AM CDT) LD (LACTATE DEHYDROGENASE) 217(H) 135 - 214 U/L INTERFACE SYSTEM 02/08/2006 11:0 5 AM CDT Wallace Anthony MD CHEMISTRY ORDERABLES Performing Organization Address [facility] Phone Number INTERFACE SYSTEM Refer to clinic/hospital department * (ABNORMAL) COMPREHENSIVE METABOLIC PANEL (02/08/2006 11:05 AM CDT) GLUCOSE 65 65 - 109 mg/dL INTERFACE SYSTEM CREATININE 0.7 0.4 - 1.2 mg/dL INTERFACE SYSTEM CALCIUM 9.6 8.6 - 10.2 mg/dL INTERFACE SYSTEM AST 58(H) 12 - 32 U/L INTERFACE SYSTEM ALKALINE PHOSPHATASE 70 35 - 104 U/L INTERFACE SYSTEM ALT 59(H) 0 - 31 U/L INTERFACE SYSTEM BILIRUBIN TOTAL 0.2 0.2 - 1.0 mg/dL INTERFACE SYSTEM ALBUMIN 4.4 3.4 - 4.8 g/dL INTERFACE SYSTEM TOTAL PROTEIN 6.9 6.3 - 8.6 g/dL INTERFACE SYSTEM BUN 18 6 - 20 mg/dL INTERFACE SYSTEM SODIUM 144 135 - 145 mmol/L INTERFACE SYSTEM POTASSIUM 4.2 3.5 - 4.9 mmol/L INTERFACE SYSTEM CHLORIDE 106 96 - 108 mmol/L INTERFACE SYSTEM CO2 28 22 - 30 mmol/L INTERFACE SYSTEM 02/08/2006 11:0 5 AM CDT Wallace Anthony MD CHEMISTRY ORDERABLES INTERFACE SYSTEM Refer to clinic/hospital department documented in this encounter Visit Diagnoses Diagnosis Hemangioma of other sites- Primary documented in this encounter Care Teams Client Care Consultant Relationship Specialty [place] [address] [place] [address] PCP - General 07/14/04 documented as of this encounter
--- OUTSIDE RECORDS SUMMARY | 2024-10-25 03:08 | XMS_ITS | Encounter Summary ---
Author Organization [facility] Address [address] [place] [address] Care Team Providers Care Inspector Welded Parts Name Role Phone Liberty Hernandez MD Primary Care Provider [phone] Encounter Details Date Type Department Care Team (Latest Contact Info) Description 12/30/2009 9:25 AM [facility] - 12/30/2009 11:59 PM [facility] Hospital Encounter [facility] [address] [facility], [facility] [address] [place] [address] Wallace Anthony MD NO ADDRESS [...] Associated Diagnosis Comments CBC WITH DIFFERENTIAL Stat 12/30/2009 9:30 AM [facility] 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 COMPREHENSIVE METABOLIC PANEL Stat 12/30/2009 9:30 AM [facility] 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 documented in this encounter Results * (ABNORMAL) COMPREHENSIVE METABOLIC PANEL (12/30/2009 9:30 AM [facility]) SODIUM 142 135 - 145 mmol/L [facility] POTASSIUM 3.8 3.5 - 4.9 mmol/L [facility] CHLORIDE 105 96 - 108 mmol/L [facility] CO2 28 22 - 30 mmol/L [facility] CALCIUM 9.5 8.6 - 10.2 mg/dL [facility] BUN 17 6 - 20 mg/dL [facility] CREATININE 0.68 0.51 - 0.95 mg/dL [facility] GLUCOSE 64(L) 65 - 99 mg/dL [facility] TOTAL PROTEIN 7.1 6.3 - 8.6 g/dL [facility] ALBUMIN 4.7 3.4 - 4.8 g/dL [facility] BILIRUBIN TOTAL 0.3 0.2 - 1.0 mg/dL [facility] ALKALINE PHOSPHATASE 66 35 - 104 U/L [facility] AST 29 12 - 32 U/L [facility] ALT 22 0 - 31 U/L [facility] GFR, >60 >=60 mL/min/1.7 sq meter [facility] GFR >60 >=60 mL/min/1.7 sq meter [facility] Comment: Modification of Diet in Renal Disease (MDRD) study formula. Estimated GFR rate interpretative information for both Americans and non- Americans is available on the [facility] Intranet at: [email or web address] Select: Lab Policies and Procedures Select: Reference Ranges - GFR Blood specimen (specimen) 12/30/2009 9:30 AM [facility] 12/30/2009 9:37 AM [facility] Wallace Anthony MD CHEMISTRY ORDERABLES [facility] CLIA# [id number] [address] [place] [address] * (ABNORMAL) CBC WITH DIFFERENTIAL (12/30/2009 9:30 AM [facility]) WBC 6.7 4.0 - 9.8 K/uL [facility] RBC 4.15 3.90 - 4.90 M/uL [facility] HEMOGLOBIN 13.2 11.8 - 14.8 g/dL [facility] HEMATOCRIT 38.8 35.5 - 44.0 % [facility] MCV 93.5 82.0 - 99.0 fL [facility] MCH 31.8 27.2 - 32.6 pg [facility] MCHC 34.0 31.5 - 35.5 % [facility] PLATELETS 297 140 - 350 K/uL [facility] MPV 9.1(L) 9.3 - 12.4 fL [facility] RDW 12.5 11.5 - 14.5 % [facility] RDW-STDEV 43.1 37.1 - 48.7 fL [facility] NEUTROPHILS 60 45 - 70 % [facility] LYMPHOCYTES 29 16 - 45 % [facility] MONOCYTES 10 3 - 13 % [facility] EOSINOPHILS 1 0 - 7 % [facility] BASOPHILS 0 0 - 2 % [facility] NEUTROPHIL ABSOLUTE 4.01 1.90 - 7.00 K/uL [facility] LYMPHOCYTE ABSOLUTE 1.92 0.70 - 4.50 K/uL [facility] MONOCYTE ABSOLUTE 0.70 0.10 - 1.30 K/uL [facility] EOSINOPHIL ABSOLUTE 0.04 0.00 - 0.70 K/uL [facility] BASOPHILS ABSOLUTE 0.03 0.00 - 0.20 K/uL [facility] Blood specimen (specimen) 12/30/2009 9:30 AM [facility] 12/30/2009 9:37 AM [facility] Wallace Anthony MD HEMATOLOGY ORDERABLE S [facility] CLIA# [id number] [address] [place] [address] documented in this encounter Visit Diagnoses Diagnosis 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
--- OUTSIDE RECORDS SUMMARY | 2024-10-25 03:08 | XMS_ITS | Encounter Summary ---
Author Organization [facility] Address [address] [place] [address] Care Team Providers Care Pallet Stone Positioner Name Role Phone Liberty Hernandez MD Primary Care Provider [phone] Encounter Details Date Type Department Care Team (Latest Contact Info) Description 12/11/2004 Outpatient Historical [facility] ANIKA Meyer, Donell Roche MD NO [...] Procedure Name Priority Date/Time Associated Diagnosis Comments AMELIA PANEL Routine 12/11/2004 11:57 AM RUBBER CUTTER HEPATITIS B SURFACE ANTIGEN Routine 12/11/2004 11:57 AM RUBBER CUTTER BARTONELLA AB IGG/IGM W REFLEX TITER Routine 12/11/2004 11:57 AM RUBBER CUTTER RPR Routine 12/11/2004 11:57 AM RUBBER CUTTER RHEUMATOID FACTOR Routine 12/11/2004 11: 57 AM RUBBER CUTTER COMPLEMENT C3 Routine 12/11/2004 11:57 AM RUBBER CUTTER COMPLEMENT C4 Routine 12/11/2004 11:57 AM RUBBER CUTTER TSH Routine 12/11/2004 11:57 AM RUBBER CUTTER LACTATE DEHYDROGENASE Routine 12/11/2004 11:57 AM RUBBER CUTTER documented in this encounter Results * TSH (12/11/2004 11:57 AM RUBBER CUTTER) TSH 0.89 0.27 - 4.20 uU/mL INTERFACE SYSTEM 12/11/2004 11:5 7 AM RUBBER CUTTER Donell Meyer MD CHEMISTRY ORDERABL ES Performing Organization Address [facility] Phone Number INTERFACE SYSTEM Refer to clinic/hospital department * LACTATE DEHYDROGENASE (12/11/2004 11:57 AM RUBBER CUTTER) LD (LACTATE DEHYDROGENASE) 189 135 - 214 U/L INTERFACE SYSTEM 12/11/2004 11:5 7 AM RUBBER CUTTER Donell Meyer MD CHEMISTRY ORDERABL ES Performing Organization Address [facility] Phone Number INTERFACE SYSTEM Refer to clinic/hospital department * COMPLEMENT C4 (12/11/2004 11:57 AM RUBBER CUTTER) COMPLEMENT C4 23 16 - 47 mg/dL INTERFACE SYSTEM Comment: Lab test performed by: [employer] [address] MARQUISE LAWSON MD 12/11/2004 11:5 7 AM RUBBER CUTTER Donell Meyer MD CHEMISTRY ORDERABL ES Performing Organization Address [facility] Phone Number INTERFACE SYSTEM Refer to clinic/hospital department * COMPLEMENT C3 (12/11/2004 11:57 AM RUBBER CUTTER) COMPLEMENT C3 118 90 - 180 mg/dL INTERFACE SYSTEM Comment: Lab test performed by: [facility] [id number] [place] [address] MARQUISE LAWSON MD 12/11/2004 11:5 7 AM RUBBER CUTTER Donell Meyer MD CHEMISTRY ORDERABL ES Performing Organization Address [facility] Co de Phone Number INTERFACE SYSTEM Refer to clinic/hospital department * AMELIA PANEL (12/11/2004 11:57 AM RUBBER CUTTER) DNA AUTOABS DOUBLE STRANDED <30 IU/mL INTERFACE SYSTEM Comment: IU/ML ?INTERPRETATION ? < 30 ? NEGATIVE ? 30-60 ?LOW POSITIVE ? 61-200 ?? POSITIVE ? > 200 ?STRONG POSITIVE ? Lab test performed by: [employer] [address] MARQUISE LAWSON MD SCLERODERMA AB SCL 70 <1.00 Index INTERFACE SYSTEM Comment: REFERENCE RANGE ?? INDEX VALUES < OR = 1.00 ?= NEGATIVE ?? INDEX VALUES > 1.00 ? = POSITIVE ? Lab test performed by: [employer] [address] MARQUISE LAWSON MD NILES ABS, SM AB <1.00 Index INTER FACE SYSTEM Comment: REFERENCE RANGE ?? INDEX VALUES < OR = 1.00 ?= NEGATIVE ?? INDEX VALUES > 1.00 ? = POSITIVE ?THE PRESENCE OF SM ANTIBODIES IS HIGHLY SPECIFIC FOR SLE. ?SM ANTIBODIES ARE PRESENT IN 30% OF SLE PATIENTS. NILES ABS, SM/BUSINESS SALES CONSULTANT AB <1.00 Index I NTERFACE SYSTEM Comment: REFERENCE RANGE ?? INDEX VALUES < OR = 1.00 ?= NEGATIVE ?? INDEX VALUES > 1.00 ? = POSITIVE ? BUSINESS SALES CONSULTANT ANTIBODIES ARE FOUND IN MIXED CONNECTIVE TISSUE ? DISEASE (MCTD), SLE, RA, SJOGREN'S SYNDROME, ? PROGRESSIVE SYSTEMIC SCLEROSIS, AND DRUG INDUCED LE. ? THE PRESENCE OF BUSINESS SALES CONSULTANT ANTIBODIES AND THE ABSENCE OF SM ? AND DS DNA ANTIBODIES STRONGLY SUGGESTS MCTD, WHILE ? THE ABSENCE OF BUSINESS SALES CONSULTANT USUALLY RULES OUT MCTD. ? Lab test performed by: [employer] [address] MARQUISE LAWSON MD SJOGRENS ABS (SSA) <1.00 Index I NTERFACE SYSTEM Comment: REFERENCE RANGE ?? INDEX VALUES < OR = 1.00 ?= NEGATIVE ?? INDEX VALUES > 1.00 ? = POSITIVE SJOGRENS ABS (SSB) <1.00 Index I NTERFACE SYSTEM Comment: REFERENCE RANGE ?? INDEX VALUES < OR = 1.00 ?= NEGATIVE ?? INDEX VALUES > 1.00 ? = POSITIVE ANTIBODIES TO SSA (RO) AND SSB (LA) ARE OBSERVED WITH THE HIGHEST FREQUENCY IN SJOGREN'S SYNDROME, ALTHOUGH THESE ANTIBODIES ARE ALSO FOUND IN A SIGNIFICANT PERCENTAGE OF PATIENTS WITH SLE. ? Lab test performed by: [place] [address] MARQUISE LAWSON MD AMELIA SCREEN NEGATIVE NEGATIVE INTERFACE SYSTEM Comment: Lab test performed by: [place] [address] MARQUISE LAWSON MD 12/11/2004 11:5 7 AM RUBBER CUTTER Donell Meyer MD CHEMISTRY ORDERABL ES INTERFACE SYSTEM Refer to clinic/hospital department * BARTONELLA AB IGG/IGM W REFLEX TITER (12/11/2004 11:57 AM RUBBER CUTTER) B. HENSELAE IGG SCREEN NEGATIVE INTERFACE SYSTEM Comment: Reference Range: ?NEGATIVE ? Lab test performed by: [employer]/[facility] [address] [place] [address] Pj BUTLER MD BARTONELLA HENSELAE IGG TITER Not Performed Titer INTERFACE SYSTEM Comment: Reference Range: ?<1:64 TNP-Screening test negative. Titer not performed. ? Lab test performed by: [employer]/[facility] [address] [place] [address] Pj BUTLER MD B. LEUNG IGG SCREEN NEGATIVE INTERFACE SYSTEM Comment: Reference Range: ?NEGATIVE ? Lab test performed by: [employer]/[facility] [address] [place] [address] Pj BUTELR MD BARTONELLA LEUNG IGG TITER Not Performed Titer INTERFACE SYSTEM Comment: Reference Range: ?<1:64 TNP-Screening test negative. Titer not performed. ?Reference Range: ?<1:64 TNP-Screening test negative. Titer not performed. ? Lab test performed by: [employer]/[facility] [address] [place] [address] Pj BUTLER MD B. HENSELAE IGM SCREEN NEGATIVE INTERFACE SYSTEM Comment: Reference Range: ?NEGATIVE ? Lab test performed by: [employer]/[facility] [address] [place] [address] Pj BUTLER MD BARTONELLA HENSELAE IGM TITER Not Performed Titer INTERFACE SYSTEM Comment: Reference Range: ?<1:64 TNP-Screening test negative. Titer not performed. ?Reference Range: ?<1:64 TNP-Screening test negative. Titer not performed. ?Reference Range: ?<1:16 TNP-Screening test negative. Titer not performed. ? Lab test performed by: [facility] [employer] [address] [facility] [place] [address] Pj BUTLER MD B. LEUNG IGM SCREEN NEGATIVE INTERFACE SYSTEM Comment: Reference Range: ?NEGATIVE ? Lab test performed by: [employer]/[facility] [address] [place] [address] Pj BUTLER MD BARTONELLA LEUNG IGM TITER Not Performed Titer INTERFACE SYSTEM Comment: Reference Range: ?<1:64 TNP-Screening test negative. Titer not performed. ?Reference Range: ?<1:64 TNP-Screening test negative. Titer not performed. ?Reference Range: ?<1:16 TNP-Screening test negative. Titer not performed. ?Reference Range: ?<1:16 TNP-Screening test negative. Titer not performed. Demonstration of a significant IgM titer and/or a four fold rise in IgG between acute and convalescent sera is necessary to establish evidence of a recent or acute infection. IgM titers of 1:16 or higher are very specific for a recent Bartonella infection. An IgG titer of >=1:256 is usually, but not always, associated with a recent infection. Unchanging titers of >=1:64 - <1:256 suggests a past infection. Titers <1:64 suggest that the patient does not have a current infection. However, if the patient is symptomatic and/or the clinical suspicion is high, it is recommended that a second specimen be submitted in 2-4 weeks to see if an increasing IgG or the presence of IgM can be detected. Since occasionally healthy control patients have demonstrated a positive IgG titer of >=1:256, clinical correlations are necessary for diagnosis. IgG crossreactivity at any titer occurs between Bartonella henselae and Bartonella leung. IgM crossreactivity between these two species is limited and is typically not seen. This test was developed and its performance characteristics determined by [facility]. It has not been cleared or approved by the U.S. Food and Drug Administration. The FDA has determined that such clearance or approval is not necessary. Performance characteristics refer to the analytical performance of the test. ? Lab test performed by: [employer]/[facility] [address] [place] [address] Pj BUTLER MD 12/11/2004 11:5 7 AM RUBBER CUTTER Donell Meyer MD CHEMISTRY ORDERABL ES Performing Organization Address [facility] Co de Phone Number INTERFACE SYSTEM Refer to clinic/hospital department * RPR (12/11/2004 11:57 AM RUBBER CUTTER) RPR NON-REACT SHONDA NON-REACT SHONDA INTERFACE SYSTEM Comment: Lab test performed by: [employer] [address] MARQUISE LAWSON MD 12/11/2004 11:5 7 AM RUBBER CUTTER Donell Meyer MD CHEMISTRY ORDERABL ES Performing Organization Address [facility] Phone Number INTERFACE SYSTEM Refer to clinic/hospital department * RHEUMATOID FACTOR (12/11/2004 11:57 AM RUBBER CUTTER) RHEUMATOID FACTOR 6 <14 IU/mL IN TERFACE SYSTEM Comment: Lab test performed by: [employer] [address] MARQUISE LAWSON MD 12/11/2004 11:5 7 AM RUBBER CUTTER Donell Meyer MD CHEMISTRY ORDERABL ES Performing Organization Address [facility] Phone Number INTERFACE SYSTEM Refer to clinic/hospital department * HEPATITIS B SURFACE ANTIGEN (12/11/2004 11:57 AM RUBBER CUTTER) HEPATITIS B SURFACE AG NON-REACT SHONDA NON-REACT SHONDA INTERFACE SYSTEM Comment: Lab test performed by: [employer] [address] MARQUISE LAWSON MD 12/11/2004 11:5 7 AM RUBBER CUTTER Donell Meyer MD CHEMISTRY ORDERABL ES Performing Organization Address [facility] Co de Phone Number INTERFACE SYSTEM Refer to clinic/hospital department documented in this encounter Visit Diagnoses Diagnosis Enlargement of lymph nodes- Primary documented in this encounter Care Teams Pallet Stone Positioner Relationship Specialty [place] [address] [place] [address] PCP - General 07/14/04 documented as of this encounter
--- OUTSIDE RECORDS SUMMARY | 2024-10-25 03:08 | XMS_ITS | Encounter Summary ---
Author Organization [facility] Address [address] [place] [address] Care Team Providers Care Senior Research Manager Name Role Phone Liberty Hernandez MD Primary Care Provider [phone] Encounter Details Date Type Department Care Team (Late st Contact Info) Description 12/14/2010 Orders Only [facility] Laboratory Services [facility] [address], [facility] [address] [place] [address] Wallace Anthony MD NO ADDRESS ON FILE Lymphomas NEC extranodal/NOS (Primary Dx) Social History Tobacco Use Types Packs/Day Years Used Date Smoking Tobacco: Never Assessed Sex and Gender Information Value Date Recorded Sex Assigned at Not on file Gender Identity Not on file Sexual Orientation Not on file documented as of this encounter Plan of Treatment Not on file documented as of this encounter Results * (ABNORMAL) CBC WITH DIFFERENTIAL (12/14/2010 2:17 PM FINANCIAL RISK MANAGER) WBC 6.6 4.0 - 9.8 K/uL [facility] RBC 4.06 3.90 - 4.90 M/uL [facility] HEMOGLOBIN 12.9 11.8 - 14.8 g/dL [facility] HEMATOCRIT 37.7 35.5 - 44.0 % [facility] MCV 92.9 82.0 - 99.0 fL [facility] MCH 31.8 27.2 - 32.6 pg [facility] MCHC 34.2 31.5 - 35.5 % [facility] PLATELETS 317 140 - 350 K/uL [facility] MPV 9.1(L) 9.3 - 12.4 fL [facility] RDW 12.6 11.5 - 14.5 % [facility] RDW-STDEV 42.9 37.1 - 48.7 fL [facility] NEUTROPHILS 47 45 - 70 % [facility] LYMPHOCYTES 40 16 - 45 % [facility] MONOCYTES 12 3 - 13 % [facility] EOSINOPHILS 1 0 - 7 % [facility] BASOPHILS 1 0 - 2 % [facility] NEUTROPHIL ABSOLUTE 3.13 1.90 - 7.00 K/uL [facility] LYMPHOCYTE ABSOLUTE 2.62 0.70 - 4.50 K/uL [facility] MONOCYTE ABSOLUTE 0.77 0.10 - 1.30 K/uL [facility] EOSINOPHIL ABSOLUTE 0.05 0.00 - 0.70 K/uL [facility] BASOPHILS ABSOLUTE 0.03 0.00 - 0.20 K/uL [facility] Blood specimen (specimen) 12/14/2010 2:17 PM FINANCIAL RISK MANAGER 12/14/2010 2:28 PM FINANCIAL RISK MANAGER Wallace Anthony MD HEMATOLOGY ORDERABLE S [facility] CLIA# [id number] [address] [place], [place] [address] * COMPREHENSIVE METABOLIC PANEL (12/14/2010 2:17 PM FINANCIAL RISK MANAGER) SODIUM 136 135 - 145 mmol/L [facility] POTASSIUM 4.0 3.5 - 4.9 mmol/L [facility] CHLORIDE 102 96 - 108 mmol/L [facility] CO2 27 22 - 30 mmol/L [facility] CALCIUM 9.8 8.6 - 10.2 mg/dL [facility] BUN 20 6 - 20 mg/dL [facility] CREATININE 0.65 0.51 - 0.95 mg/dL [facility] GLUCOSE 89 65 - 99 mg/dL [facility] TOTAL PROTEIN 7.4 6.3 - 8.6 g/dL [facility] ALBUMIN 4.8 3.4 - 4.8 g/dL [facility] BILIRUBIN TOTAL 0.2 0.2 - 1.0 mg/dL [facility] ALKALINE PHOSPHATASE 67 35 - 104 U/L [facility] AST 31 12 - 32 U/L [facility] ALT 27 0 - 31 U/L [facility] GFR, >60 >=60 mL/min/1.7 sq meter [facility] GFR >60 >=60 mL/min/1.7 sq meter [facility] Comment: Modification of Diet in Renal Disease (MDRD) study formula. Estimated GFR rate interpretative information for both Americans and non- Americans is available on the [facility] Intranet at: [email or web address] Select: Lab Policies and Procedures Select: Reference Ranges - GFR Blood specimen (specimen) 12/14/2010 2:17 PM FINANCIAL RISK MANAGER 12/14/2010 2:28 PM FINANCIAL RISK MANAGER Wallace Anthony MD CHEMISTRY ORDERABLES [facility] CLIA# [id number] [address]IGU[address] MATTHEWSLE[place] [address] documented in this encounter Visit Diagnoses Diagnosis Other malignant lymphomas, unspecified site, extranodal and solid organ sites Other malignant lymphomas, unspecified site, extranodal and solid organ sites- Primary documented in this encounter Care Teams Senior Research Manager Relationship Specialty [place] [address] [place] [address] PCP - General 07/14/04 documented as of this encounter
--- OUTSIDE RECORDS SUMMARY | 2024-10-25 03:08 | XMS_ITS | Encounter Summary ---
Author Organization [facility] Address [address] [place] [address] Care Team Providers Care Jacker Feeder Name Role Phone Liberty Hernandez MD Primary Care Provider [phone] Encounter Details Date Type Department Care Team (Late st Contact Info) Description 06/30/2010 Orders Only [facility] Laboratory Services [facility] [address], [facility] [address] [place] [address] Wallace Anthony MD NO ADDRESS [...] encounter Results * (ABNORMAL) CBC WITH DIFFERENTIAL (06/30/2010 9:17 AM CDT) WBC 7.0 4.0 - 9.8 K/uL [facility] RBC 3.96 3.90 - 4.90 M/uL [facility] HEMOGLOBIN 12.7 11.8 - 14.8 g/dL [facility] HEMATOCRIT 36.8 35.5 - 44.0 % [facility] MCV 92.9 82.0 - 99.0 fL [facility] MCH 32.1 27.2 - 32.6 pg [facility] MCHC 34.5 31.5 - 35.5 % [facility] PLATELETS 270 140 - 350 K/uL [facility] MPV 9.1(L) 9.3 - 12.4 fL [facility] RDW 12.3 11.5 - 14.5 % [facility] RDW-STDEV 41.6 37.1 - 48.7 fL [facility] NEUTROPHILS 56 45 - 70 % [facility] LYMPHOCYTES 31 16 - 45 % [facility] MONOCYTES 11 3 - 13 % [facility] EOSINOPHILS 1 0 - 7 % [facility] BASOPHILS 0 0 - 2 % [facility] NEUTROPHIL ABSOLUTE 3.92 1.90 - 7.00 K/uL [facility] LYMPHOCYTE ABSOLUTE 2.18 0.70 - 4.50 K/uL [facility] MONOCYTE ABSOLUTE 0.78 0.10 - 1.30 K/uL [facility] EOSINOPHIL ABSOLUTE 0.08 0.00 - 0.70 K/uL [facility] BASOPHILS ABSOLUTE 0.02 0.00 - 0.20 K/uL [facility] Blood specimen (specimen) 06/30/2010 9:17 AM CDT 06/30/2010 9:22 AM CDT Wallace Anthony MD HEMATOLOGY ORDERABLE S [facility] CLIA# [id number] [address] [place], [place] [address] * COMPREHENSIVE METABOLIC PANEL (06/30/2010 9:17 AM CDT) SODIUM 138 135 - 145 mmol/L [facility] POTASSIUM 4.2 3.5 - 4.9 mmol/L [facility] CHLORIDE 105 96 - 108 mmol/L [facility] CO2 24 22 - 30 mmol/L [facility] CALCIUM 9.7 8.6 - 10.2 mg/dL [facility] BUN 20 6 - 20 mg/dL [facility] CREATININE 0.71 0.51 - 0.95 mg/dL [facility] GLUCOSE 68 65 - 99 mg/dL [facility] TOTAL PROTEIN 7.0 6.3 - 8.6 g/dL [facility] ALBUMIN 4.5 3.4 - 4.8 g/dL [facility] BILIRUBIN TOTAL 0.2 0.2 - 1.0 mg/dL [facility] ALKALINE PHOSPHATASE 65 35 - 104 U/L [facility] AST 27 12 - 32 U/L [facility] ALT 19 0 - 31 U/L [facility] GFR, >60 >=60 mL/min/1.7 sq meter [facility] GFR >60 >=60 mL/min/1.7 sq meter [facility] Comment: Modification of Diet in Renal Disease (MDRD) study formula. Estimated GFR rate interpretative information for both Americans and non- Americans is available on the [facility] Intranet at: [email or web address] Select: Lab Policies and Procedures Select: Reference Ranges - GFR Blood specimen (specimen) 06/30/2010 9:17 AM CDT 06/30/2010 9:22 AM CDT Wallace Anthony MD CHEMISTRY ORDERABLES [facility] CLIA# [id number] [facility] [address] MIGUEL A MATTHEWSLEAH [place] [address] documented in this encounter Visit Diagnoses Diagnosis 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
--- OUTSIDE RECORDS SUMMARY | 2024-10-25 05:56 | XMS_ITS | Encounter Summary ---
Author Organization [facility] Address [address] [place] [address] Care Team Providers Care Cash Register Mechanic Name Role Phone Liberty Hernandez MD Primary Care Provider [phone] Reason for Visit * Reason Comments Finger laceration Patient arrives to [address] d/t cutting her finger with a pocketknife. Patient takes daily ASA. Encounter Details Date Type Department Care Team (Late st Contact Info) Description 07/04/2019 2:08 AM CDT - 07/04/2019 4:14 AM CDT Emergency [facility] Emergency Department [address] [place] [address] Aretha Chaparro MD NO ADDRESS ON FILE [...] through Care Everywhere. * Hand Laceration: Stitches ([place] Islander) documented in this encounter Medications at Time [...] tablet Take 30 mg by mouth daily home health outreach coordinator. HYDROcodone-homatropine (HYCODAN) 5-1.5 mg Tablet Take 1 [...] daily ASA. Picture of fingers uploaded to [employer]. Patient is Aox4, respirations even and unlabored, [...] to left index finger that occurred just WEB OFFSET PRESS FEEDER. Patient states she was at work and [...] tablet Take 30 mg by mouth daily home health outreach coordinator. HYDROcodone-homatropine (HYCODAN) 5-1.5 mg Tablet Take 1 [...] tablet Take 30 mg by mouth daily home health outreach coordinator. HYDROcodone-homatropine (HYCODAN) 5-1.5 mg Tablet Take 1 Tablet by mouth every 4 hours as needed for Cough. HYDROcodone-acetaminophen (XODOL) 10-300 mg Tablet Take 0.5 Tablets by mouth every 4 hours as needed for Pain, Moderate. aspirin (NEREIDA CHEWABLE) 81 mg Tablet, Chewable Take 81 mg by mouth daily. Follow Up: [facility] Occupational Medicine [facility] [address] [place] [address] Schedule an appointment as soon as [...] 07/04/19 at 0245, Routine 0245 (Admin by [facility] Clinician (Comment) - Provider: Jane Patel RN) documented in this encounter Care Teams Cash Register Mechanic Relationship Specialty [place] [address] [place] [address] PCP - General 07/14/04 documented as of this encounter
--- OUTSIDE RECORDS SUMMARY | 2024-10-25 05:56 | XMS_ITS | Encounter Summary ---
Author Organization [employer] [facility] Address [address] [place] [address] Care Team Providers Care Exhibition Carver Name Role Phone Liberty Hernandez MD Primary Care Provider [phone] Encounter Details Date Type Department Care Team [...] CBC WITH DIFFERENTIAL Routine 12/20/2006 8:44 AM TECHNICAL SALES MANAGER CBC WITH DIFFERENTIAL Routine 12/20/2006 8:44 AM TECHNICAL SALES MANAGER COMPREHENSIVE METABOLIC PANEL Routine 12/20/2006 8:44 AM TECHNICAL SALES MANAGER documented in this encounter Results * (ABNORMAL) CBC WITH DIFFERENTIAL (12/20/2006 8:44 AM TECHNICAL SALES MANAGER) NEUTROPHILS 57 45 - 70 % INTERFAC [...] 0.20 K/uL INTERFACE SYSTEM 12/20/2006 8:44 AM TECHNICAL SALES MANAGER Wallace Anthony MD HEMATOLOGY ORDERABLE S Performing Organization Address [facility] [address] [facility] Phone Number INTERFACE SYSTEM Refer to clinic/hospital department * (ABNORMAL) CBC WITH DIFFERENTIAL (12/20/2006 8:44 AM TECHNICAL SALES MANAGER) WBC 3.7(L) 4.0 - 9.8 K/uL INTERFACE [...] 12.4 fL INTERFACE SYSTEM 12/20/2006 8:44 AM TECHNICAL SALES MANAGER Wallace Anthony MD HEMATOLOGY ORDERABLE S Performing Organization Address [facility] [address]/[facility] Phone Number INTERFACE SYSTEM Refer to clinic/hospital department * COMPREHENSIVE METABOLIC PANEL (12/20/2006 8:44 AM TECHNICAL SALES MANAGER) GLUCOSE 80 65 - 99 mg/dL INTERFACE [...] and non- Americans is available on the [facility] Intranet at: [email or web address] Select: Lab Policies and Procedures Select: Reference Ranges - GFR 12/20/2006 8:44 AM TECHNICAL SALES MANAGER Wallace Anthony MD CHEMISTRY ORDERABLES INTERFACE SYSTEM Refer to clinic/hospital department documented in this encounter Visit Diagnoses Diagnosis Other malignant lymphomas, unspecified site, extranodal and solid organ sites- Primary documented in this encounter Care Teams Exhibition Carver Relationship Specialty [place] [address] [place] [address] PCP - General 07/14/04 documented as of this encounter
--- OUTSIDE RECORDS SUMMARY | 2024-10-25 05:56 | XMS_ITS | Encounter Summary ---
Author Organization [facility] Address [address] [place] [address] Care Team Providers Care Real Estate Photographer Name Role Phone Liberty Hernandez MD Primary Care Provider [phone] Encounter Details Date Type Department Care Team (Latest Contact Info) Description 12/14/2010 2:09 PM SIGNAL MANAGER - 12/14/2010 11:59 PM SIGNAL MANAGER Hospital Encounter [facility] [address] [facility] [address] [place] [address] Wallace Anthony MD NO ADDRESS [...] CBC WITH DIFFERENTIAL Stat 12/14/2010 2:17 PM SIGNAL MANAGER Lymphomas NEC extranodal/NOS COMPREHENSIVE METABOLIC PANEL Stat 12/14/2010 2:17 PM SIGNAL MANAGER Lymphomas NEC extranodal/NOS documented in this encounter Results * COMPREHENSIVE METABOLIC PANEL (12/14/2010 2:17 PM SIGNAL MANAGER) SODIUM 136 135 - 145 mmol/L [facility] POTASSIUM 4.0 3.5 - 4.9 mmol/L [facility] CHLORIDE 102 96 - 108 mmol/L [facility] CO2 27 22 - 30 mmol/L [facility] CALCIUM 9.8 8.6 - 10.2 mg/dL [facility] BUN 20 6 - 20 mg/dL [facility] CREATININE 0.65 0.51 - 0.95 mg/dL [facility] GLUCOSE 89 65 - 99 mg/dL [facility] TOTAL PROTEIN 7.4 6.3 - 8.6 g/dL [facility] ALBUMIN 4.8 3.4 - 4.8 g/dL [facility] BILIRUBIN TOTAL 0.2 0.2 - 1.0 mg/dL [facility] ALKALINE PHOSPHATASE 67 35 - 104 U/L [facility] AST 31 12 - 32 U/L [facility] ALT 27 0 - 31 U/L [facility] GFR, >60 >=60 mL/min/1.7 sq meter [facility] GFR >60 >=60 mL/min/1.7 sq meter [facility] Comment: Modification of Diet in Renal Disease (MDRD) study formula. Estimated GFR rate interpretative information for both Americans and non- Americans is available on the [facility] Intranet at: [email or web address] Select: Lab Policies and Procedures Select: Reference Ranges - GFR Blood specimen (specimen) 12/14/2010 2:17 PM SIGNAL MANAGER 12/14/2010 2:28 PM SIGNAL MANAGER Wallace Anthony MD CHEMISTRY ORDERABLES [facility] CLIA# [id number] [address] [place] [address] * (ABNORMAL) CBC WITH DIFFERENTIAL (12/14/2010 2:17 PM SIGNAL MANAGER) WBC 6.6 4.0 - 9.8 K/uL [facility] RBC 4.06 3.90 - 4.90 M/uL [facility] HEMOGLOBIN 12.9 11.8 - 14.8 g/dL [facility] HEMATOCRIT 37.7 35.5 - 44.0 % [facility] MCV 92.9 82.0 - 99.0 fL [facility] MCH 31.8 27.2 - 32.6 pg [facility] MCHC 34.2 31.5 - 35.5 % [facility] PLATELETS 317 140 - 350 K/uL [facility] MPV 9.1(L) 9.3 - 12.4 fL [facility] RDW 12.6 11.5 - 14.5 % [facility] RDW-STDEV 42.9 37.1 - 48.7 fL [facility] NEUTROPHILS 47 45 - 70 % [facility] LYMPHOCYTES 40 16 - 45 % [facility] MONOCYTES 12 3 - 13 % [facility] EOSINOPHILS 1 0 - 7 % [facility] BASOPHILS 1 0 - 2 % [facility] NEUTROPHIL ABSOLUTE 3.13 1.90 - 7.00 K/uL [facility] LYMPHOCYTE ABSOLUTE 2.62 0.70 - 4.50 K/uL [facility] MONOCYTE ABSOLUTE 0.77 0.10 - 1.30 K/uL [facility] EOSINOPHIL ABSOLUTE 0.05 0.00 - 0.70 K/uL [facility] BASOPHILS ABSOLUTE 0.03 0.00 - 0.20 K/uL [facility] Blood specimen (specimen) 12/14/2010 2:17 PM SIGNAL MANAGER 12/14/2010 2:28 PM SIGNAL MANAGER Wallace Anthony MD HEMATOLOGY ORDERABLE S [facility] CLIA# [id number] [address] [place] [address] documented in this encounter Visit Diagnoses Diagnosis Other malignant lymphomas, unspecified site, extranodal and solid organ sites documented in this encounter Care Teams Real Estate Photographer Relationship Specialty [place] [address] [place] [address] PCP - General 07/14/04 documented as of this encounter
--- OUTSIDE RECORDS SUMMARY | 2024-10-25 05:56 | XMS_ITS | Encounter Summary ---
Author Organization [employer] [facility] Address [address] [place] [address] Care Team Providers Care Emergency Room Specialist Name Role Phone Liberty Hernandez MD Primary Care Provider [phone] Encounter Details Date Type Department Care Team [...] HEMATOLOGY ORDERABLE S Performing Organization Address [facility] de Phone Number INTERFACE SYSTEM Refer to [...] MD HEMATOLOGY ORDERABLE S Performing Organization Address [facility] de Phone Number INTERFACE SYSTEM Refer to [...] Primary documented in this encounter Care Teams Emergency Room Specialist Relationship Specialty [place] [address] [place] [address] PCP - General 07/14/04 documented as of this encounter
--- OUTSIDE RECORDS SUMMARY | 2024-10-25 05:56 | XMS_ITS | Encounter Summary ---
Author Organization [facility] Address [address] [place] [address] Care Team Providers Care Apprentice Painter Hand Name Role Phone Liberty Hernandez MD Primary Care Provider [phone] Encounter Details Date Type Department Care Team [...] CBC WITH DIFFERENTIAL Stat 12/19/2007 2:09 PM RIM FIRE PRIMING OPERATOR COMPREHENSIVE METABOLIC PANEL Stat 12/19/2007 2:09 PM RIM FIRE PRIMING OPERATOR documented in this encounter Results * COMPREHENSIVE METABOLIC PANEL (12/19/2007 2:09 PM RIM FIRE PRIMING OPERATOR) BUN 14 6 - 20 mg/dL [facility] CALCIUM 8.8 8.4 - 10.2 mg/dL [facility] CHLORIDE 104 96 - 108 mmol/L [facility] ALBUMIN 4.4 3.4 - 4.8 g/dL [facility] CREATININE 0.66 0.51 - 0.95 mg/dL [facility] SODIUM 140 135 - 145 mmol/L [facility] ALT 22 0 - 31 U/L [facility] ALKALINE PHOSPHATASE 65 35 - 104 U/L [facility] BILIRUBIN TOTAL 0.3 0.2 - 1.0 mg/dL [facility] CO2 27 22 - 30 mmol/L [facility] TOTAL PROTEIN 6.7 6.3 - 8.6 g/dL [facility] POTASSIUM 3.6 3.5 - 4.9 mmol/L [facility] GLUCOSE 93 65 - 99 mg/dL [facility] AST 26 12 - 32 U/L [facility] GFR, >60 >=60 mL/min/1.7 sq meter [facility] GFR >60 >=60 mL/min/1.7 sq meter [facility] Comment: Estimated GFR rate interpretative information for both Americans and non- Americans is available on the [facility] Intranet at: [email or web address] Select: Lab Policies and Procedures Select: Reference Ranges - GFR Blood specimen (specimen) 12/19/2007 2:09 PM RIM FIRE PRIMING OPERATOR 12/19/2007 2:11 PM RIM FIRE PRIMING OPERATOR Wallace Anthony MD CHEMISTRY ORDERABLES [facility] [address] [address] * (ABNORMAL) CBC WITH DIFFERENTIAL (12/19/2007 2:09 PM RIM FIRE PRIMING OPERATOR) MCHC 34.9 31.5 - 35.5 % [facility] MCV 93.2 82.0 - 99.0 fL [facility] PLATELETS 286 140 - 350 K/uL [facility] HEMOGLOBIN 12.5 11.8 - 14.8 g/dL [facility] RDW 12.4 11.5 - 14.5 % [facility] WBC 5.6 4.0 - 9.8 K/uL [facility] MCH 32.6 27.2 - 32.6 pg [facility] MPV 8.8(L) 9.3 - 12.4 fL [facility] HEMATOCRIT 35.8 35.5 - 44.0 % [facility] RDW-STDEV 40.9 37.1 - 48.7 fL [facility] RBC 3.84(L) 3.90 - 4.90 M/uL [facility] NEUTROPHILS 47 45 - 70 % [facility] NEUTROPHIL ABSOLUTE 2.61 1.90 - 7.00 K/uL [facility] EOSINOPHILS 1 0 - 7 % [facility] EOSINOPHIL ABSOLUTE 0.08 0.00 - 0.70 K/uL [facility] LYMPHOCYTES 39 16 - 45 % [facility] LYMPHOCYTE ABSOLUTE 2.14 0.70 - 4.50 K/uL [facility] BASOPHILS 1 0 - 2 % [facility] BASOPHILS ABSOLUTE 0.03 0.00 - 0.20 K/uL [facility] MONOCYTES 13 3 - 13 % [facility] MONOCYTE ABSOLUTE 0.70 0.10 - 1.30 K/uL [facility] Blood specimen (specimen) 12/19/2007 2:09 PM RIM FIRE PRIMING OPERATOR 12/19/2007 2:11 PM RIM FIRE PRIMING OPERATOR Wallace Anthony MD HEMATOLOGY ORDERABLE S INTERFACE SYSTEM Refer to clinic/hospital department [facility] [address] [place] [address] documented in this encounter Visit Diagnoses Diagnosis Other malignant lymphomas, unspecified site, extranodal and solid organ sites documented in this encounter Care Teams Apprentice Painter Hand Relationship Specialty [place] [address] [place] [address] PCP - General 07/14/04 documented as of this encounter
--- OUTSIDE RECORDS SUMMARY | 2024-10-25 05:56 | XMS_ITS | Encounter Summary ---
Author Organization [facility] Address [address] [place] [address] Care Team Providers Care Fireproof Door Maker Name Role Phone Liberty Hernandez MD Primary Care Provider [phone] Encounter Details Date Type Department Care Team [...] MD HEMATOLOGY ORDERABLE S Performing Organization Address [facility] [place] [facility] Phone Number INTERFACE SYSTEM Refer to [...] MD HEMATOLOGY ORDERABLE S Performing Organization Address [facility] [place] [facility] Phone Number INTERFACE SYSTEM Refer to [...] [facility] Intranet at: [email or web address] Select: Lab Policies and Procedures Select: Reference Ranges - GFR 04/18/2007 9:30 AM CDT Wallace Anthony MD CHEMISTRY ORDERABLES INTERFACE SYSTEM Refer to clinic/hospital department documented in this encounter Visit Diagnoses Diagnosis Other malignant lymphomas, unspecified site, extranodal and solid organ sites- Primary documented in this encounter Care Teams Fireproof Door Maker Relationship Specialty [place] [address] [place] [address] PCP - General 07/14/04 documented as of this encounter
--- OUTSIDE RECORDS SUMMARY | 2024-10-25 05:56 | XMS_ITS | Clinical Summary ---
Author Organization [facility] Address [address] [place] [address]. [place], [place] [address] [place] [address] Care Team Providers Care Rod Greaser Name Role Phone Unavailable Primary Care Provider Unavailabl e Social History Tobacco Use Types Packs/Day Years Used Date Smoking Tobacco: Never Assessed Comments Unknown Sex and Gender Information Value Date Recorded Sex Assigned at Not on file Legal Sex Female 5:52 PM MIDDLE CARD TENDER Gender Identity Not on file Sexual Orientation [...]
--- OUTSIDE RECORDS SUMMARY | 2024-10-25 05:56 | XMS_ITS | Encounter Summary ---
Author Organization [facility] Address [address] [place] [address] Care Team Providers Care Round Boner Name Role Phone Liberty Hernandez MD Primary Care Provider [phone] Encounter Details Date Type Department Care Team [...] CDT) GLUCOSE 95 65 - 99 mg/dL [facility] AST 26 12 - 32 U/L [facility] BUN 18 6 - 20 mg/dL [facility] CO2 26 22 - 30 mmol/L [facility] CALCIUM 9.0 8.4 - 10.2 mg/dL [facility] ALBUMIN 4.6 3.4 - 4.8 g/dL [facility] CHLORIDE 103 96 - 108 mmol/L [facility] CREATININE 0.75 0.51 - 0.95 mg/dL [facility] ALT 17 0 - 31 U/L [facility] SODIUM 139 135 - 145 mmol/L [facility] ALKALINE PHOSPHATASE 70 35 - 104 U/L [facility] BILIRUBIN TOTAL 0.2 0.2 - 1.0 mg/dL [facility] POTASSIUM 3.6 3.5 - 4.9 mmol/L [facility] TOTAL PROTEIN 7.0 6.3 - 8.6 g/dL [facility] GFR, >60 >=60 mL/min/1.7 sq meter [facility] GFR >60 >=60 mL/min/1.7 sq meter [facility] Comment: Modification of Diet in Renal Disease (MDRD) study formula. Estimated GFR rate interpretative information for both Americans and non- Americans is available on the [facility] Intranet at: [email or web address] Select: Lab Policies and Procedures Select: Reference Ranges - GFR Blood specimen (specimen) 04/16/2008 1:55 PM CDT 04/16/2008 2:11 PM CDT Wallace Anthony MD CHEMISTRY ORDERABLES [facility] CLIA# [id number] [facility] [address] [address] [address] [address] [place] [address] * (ABNORMAL) CBC WITH DIFFERENTIAL (04/16/2008 1:55 PM CDT) HEMOGLOBIN 12.9 11.8 - 14.8 g/dL [facility] RDW 12.2 11.5 - 14.5 % [facility] WBC 6.9 4.0 - 9.8 K/uL [facility] MCH 32.8(H) 27.2 - 32.6 pg [facility] MPV 9.2(L) 9.3 - 12.4 fL [facility] HEMATOCRIT 36.5 35.5 - 44.0 % [facility] RDW-STDEV 40.2 37.1 - 48.7 fL [facility] RBC 3.93 3.90 - 4.90 M/uL [facility] MCHC 35.3 31.5 - 35.5 % [facility] MCV 92.9 82.0 - 99.0 fL [facility] PLATELETS 326 140 - 350 K/uL [facility] BASOPHILS 0 0 - 2 % [facility] LYMPHOCYTES 27 16 - 45 % [facility] BASOPHILS ABSOLUTE 0.02 0.00 - 0.20 K/uL [facility] MONOCYTE ABSOLUTE 0.81 0.10 - 1.30 K/uL [facility] NEUTROPHIL ABSOLUTE 4.14 1.90 - 7.00 K/uL [facility] MONOCYTES 12 3 - 13 % [facility] EOSINOPHILS 1 0 - 7 % [facility] EOSINOPHIL ABSOLUTE 0.05 0.00 - 0.70 K/uL [facility] NEUTROPHILS 60 45 - 70 % [facility] LYMPHOCYTE ABSOLUTE 1.89 0.70 - 4.50 K/uL [facility] Blood specimen (specimen) 04/16/2008 1:55 PM CDT 04/16/2008 2:15 PM CDT Wallace Anthony MD HEMATOLOGY ORDERABLE S INTERFACE SYSTEM Refer to clinic/hospital department [facility] CLIA# [id number] [address] [place] [address] documented in this encounter Visit Diagnoses Diagnosis 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
--- OUTSIDE RECORDS SUMMARY | 2024-10-25 05:56 | XMS_ITS | Encounter Summary ---
Author Organization [facility] Address [address] [place] [address] Care Team Providers Care Airplane Cabin Attendant Name Role Phone Liberty Hernandez MD Primary Care Provider [phone] Encounter Details Date Type Department Care Team (Late st Contact Info) Description 11/16/2005 Outpatient Historical [facility] Wallace Anthony MD NO ADDRESS [...] on filedocumented in this encounter Care Teams Airplane Cabin Attendant Relationship Specialty [place] [address] [place] [address] PCP - General 07/14/04 documented as of this encounter
--- OUTSIDE RECORDS SUMMARY | 2024-10-25 05:56 | XMS_ITS | Encounter Summary ---
Author Organization [facility] Address [address] [place] [address] Care Team Providers Care Procurement Manager Name Role Phone Liberty Hernandez MD Primary Care Provider [phone] Encounter Details Date Type Department Care Team (Late st Contact Info) Description 12/30/2009 Orders Only [facility] Laboratory Services [facility] [address], [facility] [address] [place] [address] Wallace Anthony MD NO ADDRESS [...] (ABNORMAL) CBC WITH DIFFERENTIAL (12/30/2009 9:30 AM DRYWALL FINISHER) WBC 6.7 4.0 - 9.8 K/uL [facility] RBC 4.15 3.90 - 4.90 M/uL [facility] HEMOGLOBIN 13.2 11.8 - 14.8 g/dL [facility] HEMATOCRIT 38.8 35.5 - 44.0 % [facility] MCV 93.5 82.0 - 99.0 fL [facility] MCH 31.8 27.2 - 32.6 pg [facility] MCHC 34.0 31.5 - 35.5 % [facility] PLATELETS 297 140 - 350 K/uL [facility] MPV 9.1(L) 9.3 - 12.4 fL [facility] RDW 12.5 11.5 - 14.5 % [facility] RDW-STDEV 43.1 37.1 - 48.7 fL [facility] NEUTROPHILS 60 45 - 70 % [facility] LYMPHOCYTES 29 16 - 45 % [facility] MONOCYTES 10 3 - 13 % [facility] EOSINOPHILS 1 0 - 7 % [facility] BASOPHILS 0 0 - 2 % [facility] NEUTROPHIL ABSOLUTE 4.01 1.90 - 7.00 K/uL [facility] LYMPHOCYTE ABSOLUTE 1.92 0.70 - 4.50 K/uL [facility] MONOCYTE ABSOLUTE 0.70 0.10 - 1.30 K/uL [facility] EOSINOPHIL ABSOLUTE 0.04 0.00 - 0.70 K/uL [facility] BASOPHILS ABSOLUTE 0.03 0.00 - 0.20 K/uL [facility] Blood specimen (specimen) 12/30/2009 9:30 AM DRYWALL FINISHER 12/30/2009 9:37 AM DRYWALL FINISHER Wallace Anthony MD HEMATOLOGY ORDERABLE S [facility] CLIA# [id number] [address] [place], [place] [address] * (ABNORMAL) COMPREHENSIVE METABOLIC PANEL (12/30/2009 9:30 AM DRYWALL FINISHER) SODIUM 142 135 - 145 mmol/L [facility] POTASSIUM 3.8 3.5 - 4.9 mmol/L [facility] CHLORIDE 105 96 - 108 mmol/L [facility] CO2 28 22 - 30 mmol/L [facility] CALCIUM 9.5 8.6 - 10.2 mg/dL [facility] BUN 17 6 - 20 mg/dL [facility] CREATININE 0.68 0.51 - 0.95 mg/dL [facility] GLUCOSE 64(L) 65 - 99 mg/dL [facility] TOTAL PROTEIN 7.1 6.3 - 8.6 g/dL [facility] ALBUMIN 4.7 3.4 - 4.8 g/dL [facility] BILIRUBIN TOTAL 0.3 0.2 - 1.0 mg/dL [facility] ALKALINE PHOSPHATASE 66 35 - 104 U/L [facility] AST 29 12 - 32 U/L [facility] ALT 22 0 - 31 U/L [facility] GFR, >60 >=60 mL/min/1.7 sq meter [facility] GFR >60 >=60 mL/min/1.7 sq meter [facility] Comment: Modification of Diet in Renal Disease (MDRD) study formula. Estimated GFR rate interpretative information for both Americans and non- Americans is available on the [facility] Intranet at: [email or web address] Select: Lab Policies and Procedures Select: Reference Ranges - GFR Blood specimen (specimen) 12/30/2009 9:30 AM DRYWALL FINISHER 12/30/2009 9:37 AM DRYWALL FINISHER Wallace Anthony MD CHEMISTRY ORDERABLES [facility] CLIA# [id number] [address] [facility] [address] [place] [place] [address] documented in this encounter Visit Diagnoses Diagnosis 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
--- OUTSIDE RECORDS SUMMARY | 2024-10-25 05:56 | XMS_ITS | Encounter Summary ---
Author Organization [facility] Address [address] [place] [address] Care Team Providers Care Marina Dry Dock Manager Name Role Phone Liberty Hernandez MD Primary Care Provider [phone] Encounter Details Date Type Department Care Team (Late st Contact Info) Description 07/09/2006 Outpatient Historical [facility] Wallace Anthony MD NO ADDRESS [...] on filedocumented in this encounter Care Teams Marina Dry Dock Manager Relationship Specialty [place] [address] [place] [address] PCP - General 07/14/04 documented as of this encounter
--- OUTSIDE RECORDS SUMMARY | 2024-10-25 05:56 | XMS_ITS | Encounter Summary ---
Author Organization [facility] Address [address] [place] [address] Care Team Providers Care Dietary Assistant Name Role Phone Liberty Hernandez MD Primary Care Provider [phone] Encounter Details Date Type Department Care Team (Latest Contact Info) Description 02/01/2006 Outpatient Historical [facility] Wallace Anthony MD NO [...] MD HEMATOLOGY ORDERABLE S Performing Organization Address [facility] Phone Number INTERFACE SYSTEM Refer to [...] MD HEMATOLOGY ORDERABLE S Performing Organization Address [facility] Phone Number INTERFACE SYSTEM Refer to clinic/hospital department * (ABNORMAL) LACTATE DEHYDROGENASE (02/08/2006 11:05 AM CDT) LD (LACTATE DEHYDROGENASE) 217(H) 135 - 214 U/L INTERFACE SYSTEM 02/08/2006 11:0 5 AM CDT Wallace Anthony MD CHEMISTRY ORDERABLES Performing Organization Address [facility] Phone Number INTERFACE SYSTEM Refer to [...] Primary documented in this encounter Care Teams Dietary Assistant Relationship Specialty [place] [address] [place] [address] PCP - General 07/14/04 documented as of this encounter
--- OUTSIDE RECORDS SUMMARY | 2024-10-25 05:56 | XMS_ITS | Clinical Summary ---
Author Organization [facility] Address [address] [place] [address] Phone Care Team Providers Care Automation And Controls Manager Name Role Phone Liberty Hernandez MD Primary Care Provider [phone] Allergies No known active allergies Medications Medication [...] tablet Take 30 mg by mouth daily transportation services representative. Active HYDROcodone-homatrop ine (HYCODAN) 5-1.5 mg Tablet [...] - 1-dose 75+ series) 2033 Care Teams Automation And Controls Manager Relationship Specialty [place] [address] [place] [address] PCP - General 07/14/04
--- OUTSIDE RECORDS SUMMARY | 2024-10-25 05:56 | XMS_ITS | Encounter Summary ---
Author Organization [facility] Address [address] [place] [address] Care Team Providers Care Lvn Name Role Phone Liberty Hernandez MD Primary Care Provider Encounter Details Date Type Department Care Team (Late st Contact Info) Description 01/14/2007 Outpatient Historical [facility] Wallace Anthony MD [...] on filedocumented in this encounter Care Teams Lvn Relationship Specialty [place] [address] [place] [address] PCP - General 07/14/04 documented as of this encounter
--- OUTSIDE RECORDS SUMMARY | 2024-10-25 05:56 | XMS_ITS | Encounter Summary ---
Author Organization [facility] Address [address] [place] [address] Care Team Providers Care Passenger Rate Clerk Name Role Phone Liberty Hernandez MD Primary Care Provider [phone] Encounter Details Date Type Department Care Team [...] MD HEMATOLOGY ORDERABLE S Performing Organization Address [facility] Phone Number INTERFACE SYSTEM [...] MD HEMATOLOGY ORDERABLE S Performing Organization Address [facility] Phone Number INTERFACE SYSTEM [...] and non- Americans is available on the [facility] Intranet at: [email or web address] Select: Lab Policies and Procedures Select: Reference Ranges - GFR 08/15/2007 9:42 AM CDT Wallace Anthony MD CHEMISTRY ORDERABLES INTERFACE SYSTEM Refer to clinic/hospital department documented in this encounter Visit Diagnoses Diagnosis Other malignant lymphomas, unspecified site, extranodal and solid organ sites- Primary documented in this encounter Care Teams Passenger Rate Clerk Relationship Specialty [place] [address] [place] [address] PCP - General 07/14/04 documented as of this encounter
--- OUTSIDE RECORDS SUMMARY | 2024-10-25 05:56 | XMS_ITS | Encounter Summary ---
Author Organization [facility] Address [address] [place] [address] Care Team Providers Care Wallpaper Remover Steam Name Role Phone Liberty Hernandez MD Primary Care Provider [phone] Encounter Details Date Type Department Care Team [...] CBC WITH DIFFERENTIAL Stat 12/22/2008 3:01 PM BLOCK SAWYER COMPREHENSIVE METABOLIC PANEL Stat 12/22/2008 3:01 PM BLOCK SAWYER documented in this encounter Results * COMPREHENSIVE METABOLIC PANEL (12/22/2008 3:01 PM BLOCK SAWYER) GLUCOSE 96 65 - 99 mg/dL [facility] AST 32 12 - 32 U/L [facility] BUN 14 6 - 20 mg/dL [facility] CALCIUM 9.5 8.6 - 10.2 mg/dL [facility] ALBUMIN 4.4 3.4 - 4.8 g/dL [facility] CHLORIDE 100 96 - 108 mmol/L [facility] CREATININE 0.71 0.51 - 0.95 mg/dL [facility] ALT 24 0 - 31 U/L [facility] SODIUM 136 135 - 145 mmol/L [facility] ALKALINE PHOSPHATASE 70 35 - 104 U/L [facility] CO2 30 22 - 30 mmol/L [facility] BILIRUBIN TOTAL 0.2 0.2 - 1.0 mg/dL [facility] POTASSIUM 3.5 3.5 - 4.9 mmol/L [facility] TOTAL PROTEIN 7.1 6.3 - 8.6 g/dL [facility] GFR, >60 >=60 mL/min/1.7 sq meter [facility] GFR >60 >=60 mL/min/1.7 sq meter [facility] Comment: Modification of Diet in Renal Disease (MDRD) study formula. Estimated GFR rate interpretative information for both Americans and non- Americans is available on the [facility] Intranet at: [email or web address] Select: Lab Policies and Procedures Select: Reference Ranges - GFR Blood specimen (specimen) 12/22/2008 3:01 PM BLOCK SAWYER 12/22/2008 3:02 PM BLOCK SAWYER Wallace Anthony MD CHEMISTRY ORDERABLES INTERFACE SYSTEM Refer to clinic/hospital department [facility] CLIA# [id number] [address] [place], [place] [address] * (ABNORMAL) CBC WITH DIFFERENTIAL (12/22/2008 3:01 PM BLOCK SAWYER) HEMATOCRIT 34.4(L) 35.5 - 44.0 % [facility] RDW-STDEV 40.0 37.1 - 48.7 fL [facility] RBC 3.82(L) 3.90 - 4.90 M/uL [facility] MCHC 35.5 31.5 - 35.5 % [facility] MCV 90.1 82.0 - 99.0 fL [facility] PLATELETS 285 140 - 350 K/uL [facility] HEMOGLOBIN 12.2 11.8 - 14.8 g/dL [facility] RDW 12.3 11.5 - 14.5 % [facility] WBC 6.6 4.0 - 9.8 K/uL [facility] MCH 31.9 27.2 - 32.6 pg [facility] MPV 8.8(L) 9.3 - 12.4 fL [facility] BASOPHILS ABSOLUTE 0.03 0.00 - 0.20 K/uL [facility] MONOCYTES 13 3 - 13 % [facility] MONOCYTE ABSOLUTE 0.87 0.10 - 1.30 K/uL [facility] NEUTROPHILS 47 45 - 70 % [facility] NEUTROPHIL ABSOLUTE 3.13 1.90 - 7.00 K/uL [facility] EOSINOPHILS 1 0 - 7 % [facility] EOSINOPHIL ABSOLUTE 0.08 0.00 - 0.70 K/uL [facility] LYMPHOCYTES 38 16 - 45 % [facility] LYMPHOCYTE ABSOLUTE 2.51 0.70 - 4.50 K/uL [facility] BASOPHILS 1 0 - 2 % [facility] Blood specimen (specimen) 12/22/2008 3:01 PM BLOCK SAWYER 12/22/2008 3:02 PM BLOCK SAWYER Wallace Anthony MD HEMATOLOGY ORDERABLE S INTERFACE SYSTEM Refer to clinic/hospital department [facility] CLIA# [id number] [address] [place] [address] documented in this encounter Visit Diagnoses 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
--- OUTSIDE RECORDS SUMMARY | 2024-10-25 05:56 | XMS_ITS | Encounter Summary ---
Author Organization [facility] Address [address] [place] [address] Care Team Providers Care Trash Collector Truck Driver Name Role Phone Liberty Hernandez MD Primary Care Provider [phone] Encounter Details Date Type Department Care Team [...] CDT) SODIUM 140 135 - 145 mmol/L [facility] ALT 19 0 - 31 U/L [facility] ALKALINE PHOSPHATASE 70 35 - 104 U/L [facility] BILIRUBIN TOTAL 0.3 0.2 - 1.0 mg/dL [facility] CO2 25 22 - 30 mmol/L [facility] TOTAL PROTEIN 7.3 6.3 - 8.6 g/dL [facility] POTASSIUM 3.5 3.5 - 4.9 mmol/L [facility] GLUCOSE 105(H) 65 - 99 mg/dL [facility] AST 28 12 - 32 U/L [facility] BUN 17 6 - 20 mg/dL [facility] CALCIUM 9.5 8.6 - 10.2 mg/dL [facility] CHLORIDE 103 96 - 108 mmol/L [facility] ALBUMIN 4.7 3.4 - 4.8 g/dL [facility] CREATININE 0.66 0.51 - 0.95 mg/dL [facility] GFR, >60 >=60 mL/min/1. 7 sq meter [facility] GFR >60 >=60 mL/min/1. 7 sq meter [facility] Comment: Modification of Diet in Renal Disease (MDRD) study formula. Estimated GFR rate interpretative information for both Americans and non- Americans is available on the [facility] Intranet at: [email or web address] Select: Lab Policies and Procedures Select: Reference Ranges - GFR Blood specimen (specimen) 08/13/2008 1:13 PM CDT 08/13/2008 1:13 PM CDT Wallace Anthony MD CHEMISTRY ORDERABLES INTERFACE SYSTEM Refer to clinic/hospital department [facility] CLIA# [id number] [address] [place], [place] [address] * (ABNORMAL) CBC WITH DIFFERENTIAL (08/13/2008 1:13 PM CDT) RBC 4.21 3.90 - 4.90 M/uL [facility] MCHC 35.7(H) 31.5 - 35.5 % [facility] MCV 89.1 82.0 - 99.0 [facility] PLATELETS 309 140 - 350 K/uL [facility] HEMOGLOBIN 13.4 11.8 - 14.8 g/dL [facility] RDW 12.3 11.5 - 14.5 % [facility] WBC 8.1 4.0 - 9.8 K/uL [facility] MCH 31.8 27.2 - 32.6 pg [facility] MPV 8.9(L) 9.3 - 12.4 fL [facility] HEMATOCRIT 37.5 35.5 - 44.0 % [facility] RDW-STDEV 39.9 37.1 - 48.7 fL [facility] EOSINOPHILS 1 0 - 7 % [facility] EOSINOPHIL ABSOLUTE 0.10 0.00 - 0.70 K/uL [facility] LYMPHOCYTES 32 16 - 45 % [facility] LYMPHOCYTE ABSOLUTE 2.59 0.70 - 4.50 K/uL [facility] BASOPHILS 0 0 - 2 % [facility] BASOPHILS ABSOLUTE 0.03 0.00 - 0.20 K/uL [facility] MONOCYTES 12 3 - 13 % [facility] MONOCYTE ABSOLUTE 0.99 0.10 - 1.30 K/uL [facility] NEUTROPHILS 54 45 - 70 % [facility] NEUTROPHIL ABSOLUTE 4.34 1.90 - 7.00 K/uL [facility] Blood specimen (specimen) 08/13/2008 1:13 PM CDT 08/13/2008 1:13 PM CDT Wallace Anthony MD HEMATOLOGY ORDERABLE S INTERFACE SYSTEM Refer to clinic/hospital department [facility] CLIA# [id number] [address] [place] [address] documented in this encounter Visit Diagnoses Diagnosis 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
--- OUTSIDE RECORDS SUMMARY | 2024-10-25 05:56 | XMS_ITS | Encounter Summary ---
Author Organization [facility] Address [address] [place] [address]. [place] [address] [place] [address] Care Team Providers Care Concrete Tile Machine Operator Name Role Phone Unavailable Primary Care Provider Unavailabl e Encounter Details Date Type Department Care Team (Late st Contact Info) Description 03/17/2007 Abstract [facility] [address] [place], [place] [id number] Charlie Pineda MD [address] [place] [address] Social History Tobacco Use Types Packs/Day Years Used Date Smoking Tobacco: Never Assessed Comments Unknown Sex and Gender Information Value Date Recorded Sex Assigned at Not on file Legal Sex Female 5:52 PM PHARMACY TECHNICIAN Gender Identity Not on file Sexual Orientation Not on file documented as of this encounter Plan of Treatment Not on file documented as of this encounter Visit Diagnoses Not on filedocumented in this encounter
--- OUTSIDE RECORDS SUMMARY | 2024-10-25 05:56 | XMS_ITS | Encounter Summary ---
Author Organization [facility] Address [address] [place] [address] Care Team Providers Care Oil Well Logging Engineer Name Role Phone Liberty Hernandez MD Primary Care Provider [phone] Encounter Details Date Type Department Care Team (Late st Contact Info) Description 03/05/2006 Outpatient Historical [facility] Wallace Anthony MD NO [...] on filedocumented in this encounter Care Teams Oil Well Logging Engineer Relationship Specialty [place] [address] [place] [address] PCP - General 07/14/04 documented as of this encounter
--- OUTSIDE RECORDS SUMMARY | 2024-10-25 05:56 | XMS_ITS | Encounter Summary ---
Author Organization [employer] [facility] Address [address] [place] [address] Care Team Providers Care Calendering Machine Operator Name Role Phone Liberty Hernandez MD Primary Care Provider [phone] Encounter Details Date Type Department Care Team (Late st Contact Info) Description 12/27/2011 Orders Only [facility] Laboratory Services [facility] [address], [facility] [address] [place] [address] Wallace Anthony MD NO ADDRESS [...] encounter Results * (ABNORMAL) CBC WITH DIFFERENTIAL (12/27/2011 1:29 PM DELIVERY TECH) WBC 6.1 4.0 - 9.8 K/uL [facility] RBC 3.95 3.90 - 4.90 M/uL [facility] HEMOGLOBIN 12.6 11.8 - 14.8 g/dL [facility] HEMATOCRIT 36.5 35.5 - 44.0 % [facility] MCV 92.4 82.0 - 99.0 fL [facility] MCH 31.9 27.2 - 32.6 pg [facility] MCHC 34.5 31.5 - 35.5 % [facility] PLATELETS 322 140 - 350 K/uL [facility] MPV 9.1(L) 9.3 - 12.4 fL [facility] RDW 12.3 11.5 - 14.5 % [facility] RDW-STDEV 42.1 37.1 - 48.7 fL [facility] NEUTROPHILS 46 45 - 70 % [facility] LYMPHOCYTES 42 16 - 45 % [facility] MONOCYTES 11 3 - 13 % [facility] EOSINOPHILS 1 0 - 7 % [facility] BASOPHILS 0 0 - 2 % [facility] NEUTROPHIL ABSOLUTE 2.81 1.90 - 7.00 K/uL [facility] LYMPHOCYTE ABSOLUTE 2.57 0.70 - 4.50 K/uL [facility] MONOCYTE ABSOLUTE 0.65 0.10 - 1.30 K/uL [facility] EOSINOPHIL ABSOLUTE 0.05 0.00 - 0.70 K/uL [facility] BASOPHILS ABSOLUTE 0.02 0.00 - 0.20 K/uL [facility] Blood specimen (specimen) 12/27/2011 1:29 PM DELIVERY TECH 12/27/2011 1:37 PM DELIVERY TECH Wallace Anthony MD HEMATOLOGY ORDERABLE S [facility]# [id number] [address] [place] [address] * COMPREHENSIVE METABOLIC PANEL (12/27/2011 1:29 PM DELIVERY TECH) SODIUM 138 135 - 145 mmol/L [facility] POTASSIUM 4.1 3.5 - 4.9 mmol/L [facility] CHLORIDE 102 96 - 108 mmol/L [facility] CO2 27 22 - 30 mmol/L [facility] CALCIUM 9.7 8.6 - 10.2 mg/dL [facility] BUN 14 6 - 20 mg/dL [facility] CREATININE 0.66 0.51 - 0.95 mg/dL [facility] GLUCOSE 92 65 - 99 mg/dL [facility] TOTAL PROTEIN 7.5 6.3 - 8.6 g/dL [facility] ALBUMIN 4.8 3.4 - 4.8 g/dL [facility] BILIRUBIN TOTAL 0.4 0.2 - 1.0 mg/dL [facility] ALKALINE PHOSPHATASE 77 35 - 104 U/L [facility] AST 31 12 - 32 U/L [facility] ALT 23 0 - 31 U/L [facility] GFR, >60 >=60 mL/min/1. 7 sq meter [facility] GFR >60 >=60 mL/min/1. 7 sq meter [facility] Comment: GFR is calculated using the IDMS-Traceable Modification of Diet in Renal Disease (MDRD) Study formula and is only valid for patients 18 years or older. Further interpretative information is available in the Laboratory Services Policy Manual on the [facility] Intranet at: [email or web address]-[employer] Re[employer] Managementet.[facility] vin[facility] physicians medical centerGoIP Internationalgood samaritan hospital.[facility]/ Blood specimen (specimen) 12/27/2011 1:29 PM DELIVERY TECH 12/27/2011 1:46 PM DELIVERY TECH Wallace Anthony MD CHEMISTRY ORDERABLES [facility]# [id number] [address] [place] [address] documented in this encounter Visit Diagnoses Diagnosis Other malignant lymphomas, unspecified site, extranodal and solid organ sites Other malignant lymphomas, unspecified site, extranodal and solid organ sites- Primary documented in this encounter Care Teams Calendering Machine Operator Relationship Specialty [place] [address] [place] [address] PCP - General 07/14/04 documented as of this encounter
--- OUTSIDE RECORDS SUMMARY | 2024-10-25 05:56 | XMS_ITS | Encounter Summary ---
Author Organization [facility] Address [address] [place] [address] Care Team Providers Care Propagation Manager Name Role Phone Liberty Hernandez MD Primary Care Provider [phone] Encounter Details Date Type Department Care Team (Latest Contact Info) Description 06/30/2010 9:11 AM CDT - 06/30/2010 11:59 PM CDT Hospital Encounter [facility] Laboratory Services [facility] [address] [facility], [facility] [address] [place] [address] Wallace Anthony MD NO ADDRESS [...] - 145 mmol/L [facility] POTASSIUM 4.2 3.5 - 4.9 mmol/L [facility] CHLORIDE 105 96 - 108 mmol/L [facility] CO2 24 22 - 30 mmol/L [facility] CALCIUM 9.7 8.6 - 10.2 mg/dL [facility] BUN 20 6 - 20 mg/dL [facility] CREATININE 0.71 0.51 - 0.95 mg/dL [facility] GLUCOSE 68 65 - 99 mg/dL [facility] TOTAL PROTEIN 7.0 6.3 - 8.6 g/dL [facility] ALBUMIN 4.5 3.4 - 4.8 g/dL [facility] BILIRUBIN TOTAL 0.2 0.2 - 1.0 mg/dL [facility] ALKALINE PHOSPHATASE 65 35 - 104 U/L [facility] AST 27 12 - 32 U/L [facility] ALT 19 0 - 31 U/L [facility] GFR, >60 >=60 mL/min/1.7 sq meter [facility] GFR >60 >=60 mL/min/1.7 sq meter [facility] Comment: Modification of Diet in Renal Disease (MDRD) study formula. Estimated GFR rate interpretative information for both Americans and non- Americans is available on the [facility] Intranet at: [email or web address] Select: Lab Policies and Procedures Select: Reference Ranges - GFR Blood specimen (specimen) 06/30/2010 9:17 AM CDT 06/30/2010 9:22 AM CDT Wallace Anthony MD CHEMISTRY ORDERABLES [facility] CLIA# [id number] [address] [facility] [place] [address] * (ABNORMAL) CBC WITH DIFFERENTIAL (06/30/2010 9:17 AM CDT) WBC 7.0 4.0 - 9.8 K/uL [facility] RBC 3.96 3.90 - 4.90 M/uL [facility] HEMOGLOBIN 12.7 11.8 - 14.8 g/dL [facility] HEMATOCRIT 36.8 35.5 - 44.0 % [facility] MCV 92.9 82.0 - 99.0 fL [facility] MCH 32.1 27.2 - 32.6 pg [facility] MCHC 34.5 31.5 - 35.5 % [facility] PLATELETS 270 140 - 350 K/uL [facility] MPV 9.1(L) 9.3 - 12.4 fL [facility] RDW 12.3 11.5 - 14.5 % [facility] RDW-STDEV 41.6 37.1 - 48.7 fL [facility] NEUTROPHILS 56 45 - 70 % [facility] LYMPHOCYTES 31 16 - 45 % [facility] MONOCYTES 11 3 - 13 % [facility] EOSINOPHILS 1 0 - 7 % [facility] BASOPHILS 0 0 - 2 % [facility] NEUTROPHIL ABSOLUTE 3.92 1.90 - 7.00 K/uL [facility] LYMPHOCYTE ABSOLUTE 2.18 0.70 - 4.50 K/uL [facility] MONOCYTE ABSOLUTE 0.78 0.10 - 1.30 K/uL [facility] EOSINOPHIL ABSOLUTE 0.08 0.00 - 0.70 K/uL [facility] BASOPHILS ABSOLUTE 0.02 0.00 - 0.20 K/uL [facility] Blood specimen (specimen) 06/30/2010 9:17 AM CDT 06/30/2010 9:22 AM CDT Wallace Anthony MD HEMATOLOGY ORDERABLE S [facility] CLIA# [id number] [address] [place] [place] [address] documented in this encounter Visit Diagnoses Diagnosis 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
--- OUTSIDE RECORDS SUMMARY | 2024-10-25 05:56 | XMS_ITS | Encounter Summary ---
Author Organization [email or web address] Address [address] [place] [address] Care Team Providers Care Snaker Name Role Phone Liberty Hernandez MD Primary Care Provider [phone] Encounter Details Date Type Department Care Team [...] CDT) POTASSIUM 3.9 3.5 - 4.9 mmol/L [facility] TOTAL PROTEIN 6.7 6.3 - 8.6 g/dL [facility] GLUCOSE 65 65 - 99 mg/dL [facility] AST 26 12 - 32 U/L [facility] BUN 17 6 - 20 mg/dL [facility] CALCIUM 9.6 8.6 - 10.2 mg/dL [facility] ALBUMIN 4.2 3.4 - 4.8 g/dL [facility] CHLORIDE 104 96 - 108 mmol/L [facility] CREATININE 0.70 0.51 - 0.95 mg/dL [facility] ALT 18 0 - 31 U/L [facility] SODIUM 138 135 - 145 mmol/L [facility] ALKALINE PHOSPHATASE 55 35 - 104 U/L [facility] CO2 25 22 - 30 mmol/L [facility] BILIRUBIN TOTAL 0.2 0.2 - 1.0 mg/dL [facility] GFR, >60 >=60 mL/min/1.7 sq meter [facility] GFR >60 >=60 mL/min/1.7 sq meter [facility] Comment: Modification of Diet in Renal Disease (MDRD) study formula. Estimated GFR rate interpretative information for both Americans and non- Americans is available on the [facility] Intranet at: [email or web address] Select: Lab Policies and Procedures Select: Reference Ranges - GFR Blood specimen (specimen) 07/01/2009 9:26 AM CDT 07/01/2009 9:26 AM CDT Wallace Anthony MD CHEMISTRY ORDERABLES [facility] CLIA# [id number] [address] [place] [address] * (ABNORMAL) CBC WITH DIFFERENTIAL (07/01/2009 9:26 AM CDT) HEMATOCRIT 35.7 35.5 - 44.0 % [facility] RDW-STDEV 41.7 37.1 - 48.7 fL [facility] RBC 3.83(L) 3.90 - 4.90 M/uL [facility] MCHC 34.2 31.5 - 35.5 % [facility] MCV 93.2 82.0 - 99.0 fL [facility] PLATELETS 274 140 - 350 K/uL [facility] HEMOGLOBIN 12.2 11.8 - 14.8 g/dL [facility] RDW 12.3 11.5 - 14.5 % [facility] WBC 4.8 4.0 - 9.8 K/uL [facility] MCH 31.9 27.2 - 32.6 pg [facility] MPV 9.1(L) 9.3 - 12.4 fL [facility] LYMPHOCYTES 34 16 - 45 % [facility] LYMPHOCYTE ABSOLUTE 1.62 0.70 - 4.50 K/uL [facility] BASOPHILS 0 0 - 2 % [facility] BASOPHILS ABSOLUTE 0.02 0.00 - 0.20 K/uL [facility] MONOCYTES 11 3 - 13 % [facility] MONOCYTE ABSOLUTE 0.54 0.10 - 1.30 K/uL [facility] NEUTROPHILS 54 45 - 70 % [facility] NEUTROPHIL ABSOLUTE 2.60 1.90 - 7.00 K/uL [facility] EOSINOPHILS 1 0 - 7 % [facility] EOSINOPHIL ABSOLUTE 0.05 0.00 - 0.70 K/uL [facility] Blood specimen (specimen) 07/01/2009 9:26 AM CDT 07/01/2009 9:26 AM CDT Wallace Anthony MD HEMATOLOGY ORDERABLE S [facility] CLIA# [id number] [address] [place] [address] documented in this encounter Visit Diagnoses Diagnosis 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
--- OUTSIDE RECORDS SUMMARY | 2024-10-25 05:56 | XMS_ITS | Encounter Summary ---
Author Organization [facility] Address [address] [place] [address] Care Team Providers Care Fabrication Inspector Name Role Phone Liberty Hernandez MD Primary Care Provider [phone] Encounter Details Date Type Department Care Team (Late st Contact Info) Description 06/30/2010 Orders Only [facility] Laboratory Services [facility] [address] [facility] [facility], [facility] [address] [place] [address] Wallace Anthony MD NO ADDRESS [...] CDT) WBC 7.0 4.0 - 9.8 K/uL [facility] RBC 3.96 3.90 - 4.90 M/uL [facility] HEMOGLOBIN 12.7 11.8 - 14.8 g/dL [facility] HEMATOCRIT 36.8 35.5 - 44.0 % [facility] MCV 92.9 82.0 - 99.0 fL [facility] MCH 32.1 27.2 - 32.6 pg [facility] MCHC 34.5 31.5 - 35.5 % [facility] PLATELETS 270 140 - 350 K/uL [facility] MPV 9.1(L) 9.3 - 12.4 fL [facility] RDW 12.3 11.5 - 14.5 % [facility] RDW-STDEV 41.6 37.1 - 48.7 fL [facility] NEUTROPHILS 56 45 - 70 % [facility] LYMPHOCYTES 31 16 - 45 % [facility] MONOCYTES 11 3 - 13 % [facility] EOSINOPHILS 1 0 - 7 % [facility] BASOPHILS 0 0 - 2 % [facility] NEUTROPHIL ABSOLUTE 3.92 1.90 - 7.00 K/uL [facility] LYMPHOCYTE ABSOLUTE 2.18 0.70 - 4.50 K/uL [facility] MONOCYTE ABSOLUTE 0.78 0.10 - 1.30 K/uL [facility] EOSINOPHIL ABSOLUTE 0.08 0.00 - 0.70 K/uL [facility] BASOPHILS ABSOLUTE 0.02 0.00 - 0.20 K/uL [facility] Blood specimen (specimen) 06/30/2010 9:17 AM CDT 06/30/2010 9:22 AM CDT Wallace Anthony MD HEMATOLOGY ORDERABLE S [facility] CLIA# [id number] [address] [facility] [place], [place] [address] * COMPREHENSIVE METABOLIC PANEL (06/30/2010 9:17 AM CDT) SODIUM 138 135 - 145 mmol/L [facility] POTASSIUM 4.2 3.5 - 4.9 mmol/L [facility] CHLORIDE 105 96 - 108 mmol/L [facility] CO2 24 22 - 30 mmol/L [facility] CALCIUM 9.7 8.6 - 10.2 mg/dL [facility] BUN 20 6 - 20 mg/dL [facility] CREATININE 0.71 0.51 - 0.95 mg/dL [facility] GLUCOSE 68 65 - 99 mg/dL [facility] TOTAL PROTEIN 7.0 6.3 - 8.6 g/dL [facility] ALBUMIN 4.5 3.4 - 4.8 g/dL [facility] BILIRUBIN TOTAL 0.2 0.2 - 1.0 mg/dL [facility] ALKALINE PHOSPHATASE 65 35 - 104 U/L [facility] AST 27 12 - 32 U/L [facility] ALT 19 0 - 31 U/L [facility] GFR, >60 >=60 mL/min/1.7 sq meter [facility] GFR >60 >=60 mL/min/1.7 sq meter [facility] Comment: Modification of Diet in Renal Disease (MDRD) study formula. Estimated GFR rate interpretative information for both Americans and non- Americans is available on the [facility] Intranet at: [email or web address] Select: Lab Policies and Procedures Select: Reference Ranges - GFR Blood specimen (specimen) 06/30/2010 9:17 AM CDT 06/30/2010 9:22 AM CDT Wallace Anthony MD CHEMISTRY ORDERABLES [facility] CLIA# [id number] [address] [facility] [address] [place] [address] documented in this encounter Visit Diagnoses 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
--- OUTSIDE RECORDS SUMMARY | 2024-10-25 05:56 | XMS_ITS | Encounter Summary ---
Author Organization [facility] Address [address] [place] [address] Care Team Providers Care Rust Proofer Name Role Phone Liberty Hernandez MD Primary Care Provider [phone] Encounter Details Date Type Department Care Team (Latest Contact Info) Description 12/27/2011 1:25 PM PNEUMATIC DEICER INSPECTOR - 12/27/2011 11:59 PM PNEUMATIC DEICER INSPECTOR Hospital Encounter [facility] Laboratory Services [facility] [address], [facility] [address] [place] [address] Wallace Anthony MD NO ADDRESS [...] CBC WITH DIFFERENTIAL Stat 12/27/2011 1:29 PM PNEUMATIC DEICER INSPECTOR Lymphomas NEC extranodal/NOS COMPREHENSIVE METABOLIC PANEL Stat 12/27/2011 1:29 PM PNEUMATIC DEICER INSPECTOR Lymphomas NEC extranodal/NOS documented in this encounter Results * COMPREHENSIVE METABOLIC PANEL (12/27/2011 1:29 PM PNEUMATIC DEICER INSPECTOR) SODIUM 138 135 - 145 mmol/L [facility] POTASSIUM 4.1 3.5 - 4.9 mmol/L [facility] CHLORIDE 102 96 - 108 mmol/L [facility] CO2 27 22 - 30 mmol/L [facility] CALCIUM 9.7 8.6 - 10.2 mg/dL [facility] LABORATORY [facility] BUN 14 6 - 20 mg/dL [facility] CREATININE 0.66 0.51 - 0.95 mg/dL [facility] GLUCOSE 92 65 - 99 mg/dL [facility] TOTAL PROTEIN 7.5 6.3 - 8.6 g/dL [facility] ALBUMIN 4.8 3.4 - 4.8 g/dL [facility] BILIRUBIN TOTAL 0.4 0.2 - 1.0 mg/dL [facility] LABORATORY [facility] ALKALINE PHOSPHATASE 77 35 - 104 U/L [facility] AST 31 12 - 32 U/L [facility] ALT 23 0 - 31 U/L [facility] GFR, >60 >=60 mL/min/1. 7 sq meter [facility] LABORATORY [facility] GFR >60 >=60 mL/min/1. 7 sq meter [facility] Comment: GFR is calculated using the IDMS-Traceable Modification of Diet in Renal Disease (MDRD) Study formula and is only valid for patients 18 years or older. Further interpretative information is available in the Laboratory Services Policy Manual on the [facility] Intranet at: http://[facility] hospital[facility]/ Blood specimen (specimen) 12/27/2011 1:29 PM PNEUMATIC DEICER INSPECTOR 12/27/2011 1:46 PM PNEUMATIC DEICER INSPECTOR Wallace Anthony MD CHEMISTRY ORDERABLES [facility] CLIA# [id number] [address] [place] [address] * (ABNORMAL) CBC WITH DIFFERENTIAL (12/27/2011 1:29 PM PNEUMATIC DEICER INSPECTOR) WBC 6.1 4.0 - 9.8 K/uL [facility] LABORATORY [facility] RBC 3.95 3.90 - 4.90 M/uL [facility] HEMOGLOBIN 12.6 11.8 - 14.8 g/dL [facility] HEMATOCRIT 36.5 35.5 - 44.0 % [facility] MCV 92.4 82.0 - 99.0 fL [facility] MCH 31.9 27.2 - 32.6 pg [facility] MCHC 34.5 31.5 - 35.5 % [facility] PLATELETS 322 140 - 350 K/uL [facility] MPV 9.1(L) 9.3 - 12.4 fL [facility] RDW 12.3 11.5 - 14.5 % [facility] RDW-STDEV 42.1 37.1 - 48.7 fL [facility] NEUTROPHILS 46 45 - 70 % [facility] LYMPHOCYTES 42 16 - 45 % [facility] MONOCYTES 11 3 - 13 % [facility] EOSINOPHILS 1 0 - 7 % [facility] BASOPHILS 0 0 - 2 % [facility] NEUTROPHIL ABSOLUTE 2.81 1.90 - 7.00 K/uL [facility] LYMPHOCYTE ABSOLUTE 2.57 0.70 - 4.50 K/uL [facility] MONOCYTE ABSOLUTE 0.65 0.10 - 1.30 K/uL [facility] EOSINOPHIL ABSOLUTE 0.05 0.00 - 0.70 K/uL [facility] BASOPHILS ABSOLUTE 0.02 0.00 - 0.20 K/uL [facility] Blood specimen (specimen) 12/27/2011 1:29 PM PNEUMATIC DEICER INSPECTOR 12/27/2011 1:37 PM PNEUMATIC DEICER INSPECTOR Wallace Anthony MD HEMATOLOGY ORDERABLE S [facility] LABORATORY SERVICES [facility] CLIA# [id number] [address] [place], [place] [address] documented in this encounter Visit Diagnoses Diagnosis Other malignant lymphomas, unspecified site, extranodal and solid organ sites documented in this encounter Care Teams Rust Proofer Relationship Specialty [place] [address] [place] [address] PCP - General 07/14/04 documented as of this encounter
--- OUTSIDE RECORDS SUMMARY | 2024-10-25 05:56 | XMS_ITS | Encounter Summary ---
Author Organization [facility] Address [address] [place] [address] Care Team Providers Care Powder Worker Tnt Name Role Phone Liberty Hernandez MD Primary Care Provider Encounter Details Date Type Department Care Team (Late st Contact Info) Description 12/14/2010 Orders Only [facility] Laboratory Services [facility] [address], [facility] [address] [place] [address] Wallace Anthony MD NO ADDRESS [...] (ABNORMAL) CBC WITH DIFFERENTIAL (12/14/2010 2:17 PM HOT STICK MAN) WBC 6.6 4.0 - 9.8 K/uL [facility] RBC 4.06 3.90 - 4.90 M/uL [facility] HEMOGLOBIN 12.9 11.8 - 14.8 g/dL [facility] HEMATOCRIT 37.7 35.5 - 44.0 % [facility] MCV 92.9 82.0 - 99.0 fL [facility] MCH 31.8 27.2 - 32.6 pg [facility] MCHC 34.2 31.5 - 35.5 % [facility] PLATELETS 317 140 - 350 K/uL [facility] MPV 9.1(L) 9.3 - 12.4 fL [facility] RDW 12.6 11.5 - 14.5 % [facility] RDW-STDEV 42.9 37.1 - 48.7 fL [facility] NEUTROPHILS 47 45 - 70 % [facility] LYMPHOCYTES 40 16 - 45 % [facility] MONOCYTES 12 3 - 13 % [facility] EOSINOPHILS 1 0 - 7 % [facility] BASOPHILS 1 0 - 2 % [facility] NEUTROPHIL ABSOLUTE 3.13 1.90 - 7.00 K/uL [facility] LYMPHOCYTE ABSOLUTE 2.62 0.70 - 4.50 K/uL [facility] MONOCYTE ABSOLUTE 0.77 0.10 - 1.30 K/uL [facility] EOSINOPHIL ABSOLUTE 0.05 0.00 - 0.70 K/uL [facility] BASOPHILS ABSOLUTE 0.03 0.00 - 0.20 K/uL [facility] Blood specimen (specimen) 12/14/2010 2:17 PM HOT STICK MAN 12/14/2010 2:28 PM HOT STICK MAN Wallace Anthony MD HEMATOLOGY ORDERABLE S [facility] CLIA# [id number] [address] [place], [place] [address] * COMPREHENSIVE METABOLIC PANEL (12/14/2010 2:17 PM HOT STICK MAN) SODIUM 136 135 - 145 mmol/L [facility] POTASSIUM 4.0 3.5 - 4.9 mmol/L [facility] CHLORIDE 102 96 - 108 mmol/L [facility] CO2 27 22 - 30 mmol/L [facility] CALCIUM 9.8 8.6 - 10.2 mg/dL [facility] BUN 20 6 - 20 mg/dL [facility] CREATININE 0.65 0.51 - 0.95 mg/dL [facility] GLUCOSE 89 65 - 99 mg/dL [facility] TOTAL PROTEIN 7.4 6.3 - 8.6 g/dL [facility] ALBUMIN 4.8 3.4 - 4.8 g/dL [facility] BILIRUBIN TOTAL 0.2 0.2 - 1.0 mg/dL [facility] ALKALINE PHOSPHATASE 67 35 - 104 U/L [facility] AST 31 12 - 32 U/L [facility] ALT 27 0 - 31 U/L [facility] GFR, >60 >=60 mL/min/1.7 sq meter [facility] GFR >60 >=60 mL/min/1.7 sq meter [facility] Comment: Modification of Diet in Renal Disease (MDRD) study formula. Estimated GFR rate interpretative information for both Americans and non- Americans is available on the [facility] Intranet at: [email or web address] Select: Lab Policies and Procedures Select: Reference Ranges - GFR Blood specimen (specimen) 12/14/2010 2:17 PM HOT STICK MAN 12/14/2010 2:28 PM HOT STICK MAN Wallace Anthony MD CHEMISTRY ORDERABLES [facility] CLIA# [id number] [address] [place] [place] [address] documented in this encounter Visit Diagnoses Diagnosis Other malignant lymphomas, unspecified site, extranodal and solid organ sites Other malignant lymphomas, unspecified site, extranodal and solid organ sites- Primary documented in this encounter Care Teams Powder Worker Tnt Relationship Specialty [place] [address] [place] [address] PCP - General 07/14/04 documented as of this encounter
--- OUTSIDE RECORDS SUMMARY | 2024-10-25 05:56 | XMS_ITS | Encounter Summary ---
Author Organization [employer] Address [address] [place] [address] Care Team Providers Care Tennis Racket Repairer Name Role Phone Liberty Hernandez MD Primary Care Provider [phone] Encounter Details Date Type Department Care Team (Late st Contact Info) Description 06/28/2011 Orders Only [facility] Laboratory Services [facility] [address], [facility] [address] [place] [address] Wallace Anthony MD NO ADDRESS [...] encounter Results * (ABNORMAL) CBC WITH DIFFERENTIAL (06/28/2011 2:03 PM CDT) WBC 6.5 4.0 - 9.8 K/uL [employer] LABORATORY SERVICES [facility] RBC 3.91 3.90 - 4.90 M/uL [employer] LABORATORY SERVICES [facility] HEMOGLOBIN 12.6 11.8 - 14.8 g/dL [employer] LABORATORY SERVICES [facility] HEMATOCRIT 35.0(L) 35.5 - 44.0 % [employer] LABORATORY SERVICES [facility] MCV 89.5 82.0 - 99.[address] [employer] [address] [facility] MCH 32.2 27.2 - 32.6 pg [employer] LABORATORY SERVICES [facility] MCHC 36.0(H) 31.5 - 35.5 % [employer] [facility] PLATELETS 299 140 - 350 K/uL [employer] [facility] MPV 8.8(L) 9.3 - 12.4 DE [facility] RDW 12.4 11.5 - 14.5 % [facility] RDW-STDEV 40.2 37.1 - 48.7 [facility] NEUTROPHILS 52 45 - 70 % [facility] LYMPHOCYTES 36 16 - 45 % [facility] MONOCYTES 10 3 - 13 % [facility] EOSINOPHILS 2 0 - 7 % [facility] BASOPHILS 0 0 - 2 % [facility] NEUTROPHIL ABSOLUTE 3.41 1.90 - 7.00 K/uL [facility] LYMPHOCYTE ABSOLUTE 2.33 0.70 - 4.50 K/uL [facility] MONOCYTE ABSOLUTE 0.67 0.10 - 1.30 K/uL [facility] EOSINOPHIL ABSOLUTE 0.11 0.00 - 0.70 K/uL [employer] [facility]ORATORY SERVICES [facility] BASOPHILS ABSOLUTE 0.02 0.00 - 0.20 K/uL [facility] Blood specimen (specimen) 06/28/2011 2:03 PM CDT 06/28/2011 2:03 PM CDT Wallace Anthony MD HEMATOLOGY ORDERABLE S [employer] LABORATORY SERVICES [facility]# [id number] [address] [place] [address] * COMPREHENSIVE METABOLIC PANEL (06/28/2011 2:03 PM CDT) SODIUM 142 135 - 145 mmol/L [employer] [facility]ORAT[facility] POTASSIUM 3.8 3.5 - 4.9 mmol/L [employer] [facility]ATORY [facility] CHLORIDE 104 96 - 108 mmol/L [facility] CO2 28 22 - 30 mmol/L [facility] CALCIUM 9.8 8.6 - 10.2 mg/dL [employer] [facility] BUN 14 6 - 20 mg/dL [employer] [facility] CREATININE 0.65 0.51 - 0.95 mg/dL [facility] LABORATORY [facility] GLUCOSE 89 65 - 99 mg/dL [facility] LABORATORY [facility] TOTAL PROTEIN 7.3 6.3 - 8.6 g/dL [facility] LABORATORY [facility] ALBUMIN 4.7 3.4 - 4.8 g/dL [facility] LABORATORY [facility] BILIRUBIN TOTAL 0.3 0.2 - 1.0 mg/dL [facility] LABORATORY [facility] ALKALINE PHOSPHATASE 74 35 - 104 U/L [facility]ORATORY [facility] AST 31 12 - 32 U/L [facility]ORATORY [facility] ALT 21 0 - 31 U/L [facility]ORATORY [facility] GFR, >60 >=60 mL/min/1. 7 sq meter [facility]ORATORY [facility] GFR >60 >=60 mL/min/1. 7 sq meter [facility] LABORATORY [facility] Comment: GFR is calculated using the IDMS-Traceable Modification of Diet in Renal Disease (MDRD) Study formula and is only valid for patients 18 years or older. Further interpretative information is available in the Laboratory Services Policy Manual on the [facility] Intranet at: http://[facility]iversity [facility] centeret.[facility]/ Blood specimen (specimen) 06/28/2011 2:03 PM CDT 06/28/2011 2:16 PM CDT Wallace Anthony MD CHEMISTRY ORDERABLES [facility] [id number] [address] [place] [address] documented in this encounter Visit Diagnoses Diagnosis Other malignant lymphomas, unspecified site, extranodal and solid organ sites Other malignant lymphomas, unspecified site, extranodal and solid organ sites- Primary documented in this encounter Care Teams Tennis Racket Repairer Relationship Specialty [place] [address] [place] [address] PCP - General 07/14/04 documented as of this encounter
--- OUTSIDE RECORDS SUMMARY | 2024-10-25 05:56 | XMS_ITS | Encounter Summary ---
Author Organization [employer] Address [address] [place] [address] Care Team Providers Care Pillow Filler Name Role Phone Liberty Hernandez MD Primary Care Provider [phone] Encounter Details Date Type Department Care Team (Latest Contact Info) Description 06/28/2011 1:57 PM CDT - 06/28/2011 11:59 PM CDT Hospital Encounter [facility] Laboratory Services [facility] [address], [facility] [address] [place] [address] Wallace Anthony MD NO ADDRESS [...] - 145 mmol/L [facility] POTASSIUM 3.8 3.5 - 4.9 mmol/L [facility] CHLORIDE 104 96 - 108 mmol/L [facility] CO2 28 22 - 30 mmol/L [facility] CALCIUM 9.8 8.6 - 10.2 mg/dL [facility] BUN 14 6 - 20 mg/dL [facility] CREATININE 0.65 0.51 - 0.95 mg/dL [facility] GLUCOSE 89 65 - 99 mg/dL [facility] TOTAL PROTEIN 7.3 6.3 - 8.6 g/dL [facility] ALBUMIN 4.7 3.4 - 4.8 g/dL [facility] BILIRUBIN TOTAL 0.3 0.2 - 1.0 mg/dL [facility] ALKALINE PHOSPHATASE 74 35 - 104 U/L [facility] AST 31 12 - 32 U/L [facility] [facility] ALT 21 0 - 31 U/L [facility] GFR, >60 >=60 mL/min/1. 7 sq meter [facility] GFR >60 >=60 mL/min/1. 7 sq meter [facility] Comment: GFR is calculated using the IDMS-Traceable Modification of Diet in Renal Disease (MDRD) Study formula and is only valid for patients 18 years or older. Further interpretative information is available in the Laboratory Services Policy Manual on the [facility] Intranet at: http://[facility]-intranet.[facility]/ Blood specimen (specimen) 06/28/2011 2:03 PM CDT 06/28/2011 2:16 PM CDT Wallace Anthony MD CHEMISTRY ORDERABLES [facility] CLIA# [id number] [address] [place] [address] * (ABNORMAL) CBC WITH DIFFERENTIAL (06/28/2011 2:03 PM CDT) WBC 6.5 4.0 - 9.8 K/uL [facility] RBC 3.91 3.90 - 4.90 M/uL [facility] [facility] HEMOGLOBIN 12.6 11.8 - 14.8 g/dL [facility] [facility] HEMATOCRIT 35.0(L) 35.5 - 44.0 % [facility] MCV 89.5 82.0 - 99.0 fL [facility] MCH 32.2 27.2 - 32.6 pg [facility] MCHC 36.0(H) 31.5 - 35.5 % [facility] PLATELETS 299 140 - 350 K/uL [facility] MPV 8.8(L) 9.3 - 12.4 fL [facility] RDW 12.4 11.5 - 14.5 % [facility] RDW-STDEV 40.2 37.1 - 48.7 fL [facility] NEUTROPHILS 52 45 - 70 % [facility] LYMPHOCYTES 36 16 - 45 % [facility] MONOCYTES 10 3 - 13 % [facility] EOSINOPHILS 2 0 - 7 % [facility] BASOPHILS 0 0 - 2 % [facility] NEUTROPHIL ABSOLUTE 3.41 1.90 - 7.00 K/uL [facility] LYMPHOCYTE ABSOLUTE 2.33 0.70 - 4.50 K/uL [facility] MONOCYTE ABSOLUTE 0.67 0.10 - 1.30 K/uL [facility] EOSINOPHIL ABSOLUTE 0.11 0.00 - 0.70 K/uL [facility] BASOPHILS ABSOLUTE 0.02 0.00 - 0.20 K/uL [employer] LABORATORY SERVICES [facility] Blood specimen (specimen) 06/28/2011 2:03 PM CDT 06/28/2011 2:03 PM CDT Wallace Anthony MD HEMATOLOGY ORDERABLE S [facility] [facility] CLIA# [id number] [address] [place], [place] [address] documented in this encounter Visit Diagnoses Diagnosis Other malignant lymphomas, unspecified site, extranodal and solid organ sites documented in this encounter Care Teams Pillow Filler Relationship Specialty [place] [address] [place] [address] PCP - General 07/14/04 documented as of this encounter
--- OUTSIDE RECORDS SUMMARY | 2024-10-25 05:56 | XMS_ITS | Encounter Summary ---
Author Organization [facility] Address [address] [place] [address] Care Team Providers Care Pharmacologist Name Role Phone Liberty Hernandez MD Primary Care Provider [phone] Encounter Details Date Type Department Care Team (Latest Contact Info) Description 12/30/2009 9:25 AM TRAINING REPRESENTATIVE - 12/30/2009 11:59 PM TRAINING REPRESENTATIVE Hospital Encounter [facility] [address] [place], [facility] [address] [place] [address] Wallace Anthony MD NO ADDRESS [...] CBC WITH DIFFERENTIAL Stat 12/30/2009 9:30 AM TRAINING REPRESENTATIVE 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 COMPREHENSIVE METABOLIC PANEL Stat 12/30/2009 9:30 AM TRAINING REPRESENTATIVE 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 documented in this encounter Results * (ABNORMAL) COMPREHENSIVE METABOLIC PANEL (12/30/2009 9:30 AM TRAINING REPRESENTATIVE) SODIUM 142 135 - 145 mmol/L [facility] POTASSIUM 3.8 3.5 - 4.9 mmol/L [facility] CHLORIDE 105 96 - 108 mmol/L [facility] CO2 28 22 - 30 mmol/L [facility] CALCIUM 9.5 8.6 - 10.2 mg/dL [facility] BUN 17 6 - 20 mg/dL [facility] CREATININE 0.68 0.51 - 0.95 mg/dL [facility] GLUCOSE 64(L) 65 - 99 mg/dL [facility] TOTAL PROTEIN 7.1 6.3 - 8.6 g/dL [facility] ALBUMIN 4.7 3.4 - 4.8 g/dL [facility] BILIRUBIN TOTAL 0.3 0.2 - 1.0 mg/dL [facility] ALKALINE PHOSPHATASE 66 35 - 104 U/L [facility] AST 29 12 - 32 U/L [facility] ALT 22 0 - 31 U/L [facility] GFR, >60 >=60 mL/min/1.7 sq meter [facility] GFR >60 >=60 mL/min/1.7 sq meter [facility] Comment: Modification of Diet in Renal Disease (MDRD) study formula. Estimated GFR rate interpretative information for both Americans and non- Americans is available on the [facility] Intranet at: [email or web address] Select: Lab Policies and Procedures Select: Reference Ranges - GFR Blood specimen (specimen) 12/30/2009 9:30 AM TRAINING REPRESENTATIVE 12/30/2009 9:37 AM TRAINING REPRESENTATIVE Wallace Anthony MD CHEMISTRY ORDERABLES [facility] CLIA# [id number] [address] [place] [address] * (ABNORMAL) CBC WITH DIFFERENTIAL (12/30/2009 9:30 AM TRAINING REPRESENTATIVE) WBC 6.7 4.0 - 9.8 K/uL [facility] RBC 4.15 3.90 - 4.90 M/uL [facility] HEMOGLOBIN 13.2 11.8 - 14.8 g/dL [facility] HEMATOCRIT 38.8 35.5 - 44.0 % [facility] MCV 93.5 82.0 - 99.0 fL [facility] MCH 31.8 27.2 - 32.6 pg [facility] MCHC 34.0 31.5 - 35.5 % [facility] PLATELETS 297 140 - 350 K/uL [facility] MPV 9.1(L) 9.3 - 12.4 fL [facility] RDW 12.5 11.5 - 14.5 % [facility] RDW-STDEV 43.1 37.1 - 48.7 fL [facility] NEUTROPHILS 60 45 - 70 % [facility] LYMPHOCYTES 29 16 - 45 % [facility] MONOCYTES 10 3 - 13 % [facility] EOSINOPHILS 1 0 - 7 % [facility] BASOPHILS 0 0 - 2 % [facility] NEUTROPHIL ABSOLUTE 4.01 1.90 - 7.00 K/uL [facility] LYMPHOCYTE ABSOLUTE 1.92 0.70 - 4.50 K/uL [facility] MONOCYTE ABSOLUTE 0.70 0.10 - 1.30 K/uL [facility] EOSINOPHIL ABSOLUTE 0.04 0.00 - 0.70 K/uL [facility] BASOPHILS ABSOLUTE 0.03 0.00 - 0.20 K/uL [facility] Blood specimen (specimen) 12/30/2009 9:30 AM TRAINING REPRESENTATIVE 12/30/2009 9:37 AM TRAINING REPRESENTATIVE Wallace Anthony MD HEMATOLOGY ORDERABLE S [facility] CLIA# [id number] [address] [place] [address] documented in this encounter Visit 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
--- OUTSIDE RECORDS SUMMARY | 2024-10-25 05:56 | XMS_ITS | Encounter Summary ---
Author Organization [facility] Address [address] [place] [address] Care Team Providers Care Physical Trainer Name Role Phone Liberty Hernandez MD Primary Care Provider [phone] Encounter Details Date Type Department Care Team (Late st Contact Info) Description 06/07/2006 Outpatient Historical [facility] Wallace Anthony MD NO [...] on filedocumented in this encounter Care Teams Physical Trainer Relationship Specialty [place] [address] [place] [address] PCP - General 07/14/04 documented as of this encounter
--- OUTSIDE RECORDS SUMMARY | 2024-10-25 05:57 | XMS_ITS | Encounter Summary ---
Author Organization [address] [facility] Address [address] [place] [address] Care Team Providers Care Banquet Server Name Role Phone Liberty Hernandez MD Primary Care Provider [phone] Encounter Details Date Type Department Care Team (Latest Contact Info) Description 06/09/2005 Outpatient Historical [facility] Wallace nAthony MD NO ADDRESS ON FILE [place] UNSP [...] WITH DIFFERENTIAL (07/05/2005 4:01 PM CDT) Pathologist [facility] NEUTROPHIL ABSOLUTE 4.42 1.90 - 7.00 K/uL [...] WITH DIFFERENTIAL (07/05/2005 4:01 PM CDT) Pathologist [facility] WBC 6.5 4.0 - 9.8 K/uL INTERFACE [...] MD HEMATOLOGY ORDERABLE S Performing Organization Address City/[facility] Co de Phone Number INTERFACE SYSTEM Refer [...] Anthony MD URINE ORDERABLES Performing Organization Address City/[facility]/ZIP Co de Phone Number INTERFACE SYSTEM Refer to clinic/hospital department * BONE MARROW COLLECTION (06/09/2005 2:21 PM CDT) BONE MARROW See Pathology Report INTERFACE SYSTEM 06/09/2005 2:21 PM CDT Wallace Anthony MD PATHOLOGY/CYTOLOGY O RDERABLES Performing Organization Address [facility] Phone Number INTERFACE SYSTEM Refer to clinic/hospital department * TSH REFLEXIVE (06/09/2005 1:23 PM CDT) TSH 0.85 0.27 - 4.20 uU/mL INTERFACE SYSTEM 06/09/2005 1:23 PM CDT Wallace Anthony MD CHEMISTRY ORDERABLES Performing Organization Address [facility] Phone Number INTERFACE SYSTEM Refer to [...] HEMATOLOGY ORDERABLE S Performing Organization Address [facility] Phone Number INTERFACE SYSTEM Refer to [...] HEMATOLOGY ORDERABLE S Performing Organization Address [facility] Phone Number INTERFACE SYSTEM Refer to clinic/hospital department * URIC ACID (06/09/2005 1:23 PM CDT) URIC ACID 2.9 2.3 - 6.6 mg/dL INTERFACE SYSTEM 06/09/2005 1:23 PM CDT Wallace Anthony MD CHEMISTRY ORDERABLES Performing Organization Address [facility] Phone Number INTERFACE SYSTEM Refer to clinic/hospital department * (ABNORMAL) LACTATE DEHYDROGENASE (06/09/2005 1:23 PM CDT) LD (LACTATE DEHYDROGENASE) 219(H) 135 - 214 U/L INTERFACE SYSTEM 06/09/2005 1:23 PM CDT Wallace Anthony MD CHEMISTRY ORDERABLES Performing Organization Address [facility] Phone Number INTERFACE SYSTEM Refer to [...] INTERFACE SYSTEM Comment: Lab test performed by: [employer] [address] MARQUISE LAWSON MD 06/09/2005 1:23 PM CDT Wallace Anthony MD CHEMISTRY ORDERABLES Performing Organization Address City/[facility] Co de Phone Number INTERFACE SYSTEM Refer to clinic/hospital department documented in this encounter Visit Diagnoses Diagnosis Other malignant lymphomas, unspecified site, extranodal and solid organ sites- Primary documented in this encounter Care Teams Banquet Server Relationship Specialty [place] [address] [place] [address] PCP - General 07/14/04 documented as of this encounter
--- OUTSIDE RECORDS SUMMARY | 2024-10-25 05:57 | XMS_ITS | Encounter Summary ---
Author Organization [facility] Address [address] [place] [address] Care Team Providers Care Tire Fabric Impregnating Range Tender Name Role Phone Liberty Hernandez MD Primary [...] MD HEMATOLOGY ORDERABLE S Performing Organization Address [facility] Phone Number INTERFACE SYSTEM Refer to [...] MD HEMATOLOGY ORDERABLE S Performing Organization Address [facility] de Phone Number INTERFACE SYSTEM Refer [...] Anthony MD CHEMISTRY ORDERABLES Performing Organization Address [facility] Phone Number INTERFACE SYSTEM Refer to [...] MD HEMATOLOGY ORDERABLE S Performing Organization Address [facility] Phone Number INTERFACE SYSTEM Refer to clinic/hospital department * (ABNORMAL) CBC WITH DIFFERENTIAL (07/26/2005 2:42 PM CDT) [facility] WBC 4.3 4.0 - 9.8 K/uL INTERFACE [...] MD HEMATOLOGY ORDERABLE S Performing Organization Address [facility] Phone Number INTERFACE SYSTEM Refer to clinic/hospital department * (ABNORMAL) CBC WITH DIFFERENTIAL (07/14/2005 12:05 PM CDT) [facility] NEUTROPHILS 60 45 - 70 % INTERFAC [...] MD HEMATOLOGY ORDERABLE S Performing Organization Address [facility] Phone Number INTERFACE SYSTEM Refer to [...] Primary documented in this encounter Care Teams Tire Fabric Impregnating Range Tender Relationship Specialty [place] [address] [place] [address] PCP - General 07/14/04 documented as of this encounter
--- OUTSIDE RECORDS SUMMARY | 2024-10-25 05:57 | XMS_ITS | Encounter Summary ---
Author Organization [email or web address] Address [address] [place] [address] Care Team Providers Care Field Ring Assembler Name Role Phone Liberty Hernandez MD Primary Care Provider [phone] Encounter Details Date Type Department Care Team (Latest Contact Info) Description 12/11/2004 Outpatient Historical [facility] ANIKA Meyer, Donell Roche MD NO ADDRESS [...] Comments AMELIA PANEL Routine 12/11/2004 11:57 AM TIER IN HEPATITIS B SURFACE ANTIGEN Routine 12/11/2004 11:57 AM TIER IN BARTONELLA AB IGG/IGM W REFLEX TITER Routine 12/11/2004 11:57 AM TIER IN RPR Routine 12/11/2004 11:57 AM TIER IN RHEUMATOID FACTOR Routine 12/11/2004 11: 57 AM TIER IN COMPLEMENT C3 Routine 12/11/2004 11:57 AM TIER IN COMPLEMENT C4 Routine 12/11/2004 11:57 AM TIER IN TSH Routine 12/11/2004 11:57 AM TIER IN LACTATE DEHYDROGENASE Routine 12/11/2004 11:57 AM TIER IN documented in this encounter Results * TSH (12/11/2004 11:57 AM TIER IN) TSH 0.89 0.27 - 4.20 uU/mL INTERFACE SYSTEM 12/11/2004 11:5 7 AM TIER IN Donell Meyer MD CHEMISTRY ORDERABL ES Performing Organization Address [facility] Phone Number INTERFACE SYSTEM Refer to clinic/hospital department * LACTATE DEHYDROGENASE (12/11/2004 11:57 AM TIER IN) LD (LACTATE DEHYDROGENASE) 189 135 - 214 U/L INTERFACE SYSTEM 12/11/2004 11:5 7 AM TIER IN Donell Meyer MD CHEMISTRY ORDERABL ES Performing Organization Address [facility] Phone Number INTERFACE SYSTEM Refer to clinic/hospital department * COMPLEMENT C4 (12/11/2004 11:57 AM TIER IN) COMPLEMENT C4 23 16 - 47 mg/dL INTERFACE SYSTEM Comment: Lab test performed by: [employer] [address] MRAQUISE LAWSON MD 12/11/2004 11:5 7 AM TIER IN Donell Meyer MD CHEMISTRY ORDERABL ES Performing Organization Address [facility] Phone Number INTERFACE SYSTEM Refer to clinic/hospital department * COMPLEMENT C3 (12/11/2004 11:57 AM TIER IN) COMPLEMENT C3 118 90 - 180 mg/dL INTERFACE SYSTEM Comment: [facility] performed by: [facility] [id number] [place] [address] MARQUISE LAWSON MD 12/11/2004 11:5 7 AM TIER IN Donell Meyer MD CHEMISTRY ORDERABL ES Performing Organization Address [facility] Co de Phone Number INTERFACE SYSTEM Refer to clinic/hospital department * AMELIA PANEL (12/11/2004 11:57 AM TIER IN) DNA AUTOABS DOUBLE STRANDED <30 IU/mL INTERFACE SYSTEM Comment: IU/ML ?INTERPRETATION ? < 30 ? NEGATIVE ? 30-60 ?LOW POSITIVE ? 61-200 ?? POSITIVE ? > 200 ?STRONG POSITIVE ? Lab test performed by: [employer] [address] MARQUISE LAWSON MD SCLERODERMA AB SCL 70 <1.00 Index INTERFACE SYSTEM Comment: REFERENCE RANGE ?? INDEX VALUES < OR = 1.00 ?= NEGATIVE ?? INDEX VALUES > 1.00 ? = POSITIVE ? Lab test performed by: [employer] [address] MARQUISE LAWSON MD NILES ABS, SM AB <1.00 Index INTER FACE SYSTEM Comment: REFERENCE RANGE ?? INDEX VALUES < OR = 1.00 ?= NEGATIVE ?? INDEX VALUES > 1.00 ? = POSITIVE ?THE PRESENCE OF SM ANTIBODIES IS HIGHLY SPECIFIC FOR SLE. ?SM ANTIBODIES ARE PRESENT IN 30% OF SLE PATIENTS. NILES ABS, SM/SCIENCE TEACHER AB <1.00 Index I NTERFACE SYSTEM Comment: REFERENCE RANGE ?? INDEX VALUES < OR = 1.00 ?= NEGATIVE ?? INDEX VALUES > 1.00 ? = POSITIVE ? SCIENCE TEACHER ANTIBODIES ARE FOUND IN MIXED CONNECTIVE TISSUE ? DISEASE (MCTD), SLE, RA, SJOGREN'S SYNDROME, ? PROGRESSIVE SYSTEMIC SCLEROSIS, AND DRUG INDUCED LE. ? THE PRESENCE OF SCIENCE TEACHER ANTIBODIES AND THE ABSENCE OF SM ? AND DS DNA ANTIBODIES STRONGLY SUGGESTS MCTD, WHILE ? THE ABSENCE OF SCIENCE TEACHER USUALLY RULES OUT MCTD. ? Lab test performed by: [employer] [address] MARQUISE LAWSON MD SJOGRENS ABS (SSA) <1.00 [...] WITH SLE. ? Lab test performed by: [place] [address] MARQUISE LAWSON MD AMELIA SCREEN NEGATIVE NEGATIVE INTERFACE SYSTEM Comment: Lab test performed by: [place] [address] MARQUISE LAWSON MD 12/11/2004 11:5 7 AM TIER IN Donell Meyer MD CHEMISTRY ORDERABL ES INTERFACE SYSTEM Refer to clinic/hospital department * BARTONELLA AB IGG/IGM W REFLEX TITER (12/11/2004 11:57 AM TIER IN) B. HENSELAE IGG SCREEN NEGATIVE INTERFACE SYSTEM Comment: Reference Range: ?NEGATIVE ? Lab test performed by: [employer] [address] [place] [address] Pj BUTLER MD BARTONELLA HENSELAE IGG TITER Not Performed Titer INTERFACE SYSTEM Comment: Reference Range: ?<1:64 TNP-Screening test negative. Titer not performed. ? Lab test performed by: [employer] [address] [place] [address] Pj BUTLER MD B. LEUNG IGG SCREEN NEGATIVE INTERFACE SYSTEM Comment: Reference Range: ?NEGATIVE ? Lab test performed by: [employer] [address] [place] [address] Pj BUTLER MD BARTONELLA LEUNG IGG TITER Not Performed Titer INTERFACE SYSTEM Comment: Reference Range: ?<1:64 TNP-Screening test negative. Titer not performed. ?Reference Range: ?<1:64 TNP-Screening test negative. Titer not performed. ? Lab test performed by: [employer] [address] [place] [address] Pj BUTLER MD B. HENSELAE IGM SCREEN NEGATIVE INTERFACE SYSTEM Comment: Reference Range: ?NEGATIVE ? Lab test performed by: [employer] [address] [place] [address] Pj BUTLER MD BARTONELLA HENSELAE IGM TITER Not Performed Titer INTERFACE SYSTEM Comment: Reference Range: ?<1:64 TNP-Screening test negative. Titer not performed. ?Reference Range: ?<1:64 TNP-Screening test negative. Titer not performed. ?Reference Range: ?<1:16 TNP-Screening test negative. Titer not performed. ? Lab test performed by: [employer] [id number] [facility] [address] Pj BUTLER MD B. LEUNG IGM SCREEN NEGATIVE INTERFACE SYSTEM Comment: Reference Range: ?NEGATIVE ? Lab test performed by: [employer] [address] [place] [address] Pj BUTLER MD BARTONELLA LEUNG IGM TITER [...] developed and its performance characteristics determined by [facility]. It has not been cleared or approved by the U.S. Food and Drug Administration. The FDA has determined that such clearance or approval is not necessary. Performance characteristics refer to the analytical performance of the test. ? Lab test performed by: [employer] [address] [place] [address] Pj BUTLER MD 12/11/2004 11:5 7 AM TIER IN Donell Meyer MD CHEMISTRY ORDERABL ES Performing Organization Address City/[facility] Co de Phone Number INTERFACE SYSTEM Refer to clinic/hospital department * RPR (12/11/2004 11:57 AM TIER IN) RPR NON-REACT SHONDA NON-REACT SHONDA INTERFACE SYSTEM Comment: Lab test performed by: [employer] [address] MARQUISE LAWSON MD 12/11/2004 11:5 7 AM TIER IN Donell Meyer MD CHEMISTRY ORDERABL ES Performing Organization Address [facility] Phone Number INTERFACE SYSTEM Refer to clinic/hospital department * RHEUMATOID FACTOR (12/11/2004 11:57 AM TIER IN) RHEUMATOID FACTOR 6 <14 IU/mL IN TERFACE SYSTEM Comment: Lab test performed by: [employer] [address] MARQUISE LAWSON MD 12/11/2004 11:5 7 AM TIER IN Donell Meyer MD CHEMISTRY ORDERABL ES Performing Organization Address [facility] Phone Number INTERFACE SYSTEM Refer to clinic/hospital department * HEPATITIS B SURFACE ANTIGEN (12/11/2004 11:57 AM TIER IN) HEPATITIS B SURFACE AG NON-REACT SHONDA NON-REACT SHONDA INTERFACE SYSTEM Comment: Lab test performed by: [facility] [address] MARQUISE LAWSON MD 12/11/2004 11:5 7 AM TIER IN Donell Meyer MD CHEMISTRY ORDERABL ES Performing Organization Address [facility] Co de Phone Number INTERFACE SYSTEM Refer to clinic/hospital department documented in this encounter Visit Diagnoses Diagnosis Enlargement of lymph nodes- Primary documented in this encounter Care Teams Field Ring Assembler Relationship Specialty [place] [address] [place] [address] PCP - General 07/14/04 documented as of this encounter
--- OUTSIDE RECORDS SUMMARY | 2024-10-25 05:57 | XMS_ITS | Encounter Summary ---
Author Organization [employer] Address [address] [place] [address] Care Team Providers Care Pump Rebuilder Name Role Phone Liberty Hernandez MD Primary Care Provider [phone] Encounter Details Date Type Department Care Team (Latest Contact Info) Description 06/08/2005 Outpatient Historical [facility] CANCER [...] Primary documented in this encounter Care Teams Pump Rebuilder Relationship Specialty [place] [address] [place] [address] PCP - General 07/14/04 documented as of this encounter
--- OUTSIDE RECORDS SUMMARY | 2024-10-25 05:57 | XMS_ITS | Encounter Summary ---
Author Organization [facility] Address [address] [place] [address] Care Team Providers Care Wind Tunnel Mechanic Name Role Phone Liberty Hernandez MD Primary Care Provider [phone] Encounter Details Date Type Department Care Team (Late st Contact Info) Description 12/06/2004 Outpatient Historical HIS [facility] Ant Huang MD [address] [id number] ENLARGEMENT LYMPH NODES (Primary Dx) Social History [...] TOXOPLASMOSIS IGM Routine 12/06/2004 2:5 2 PM WOOD LATHER PARVOVIRUS B19 AB IGG/IGM Routine 12/06/2004 2:52 PM WOOD LATHER EBV IGM, VCA Routine 12/06/2004 2:52 PM WOOD LATHER EBV IGG, VCA Routine 12/06/2004 2:52 PM WOOD LATHER CBC WITH DIFFERENTIAL Routine 12/06/2004 2:52 PM WOOD LATHER CBC WITH DIFFERENTIAL Routine 12/06/2004 2:52 PM WOOD LATHER CMV IGG Routine 12/06/2004 2:52 PM WOOD LATHER AMELIA SCREEN W/REFLEX Routine 12/06/2004 2 :52 PM WOOD LATHER documented in this encounter Results * (ABNORMAL) CBC WITH DIFFERENTIAL (12/06/2004 2:52 PM WOOD LATHER) NEUTROPHILS 59 45 - 70 % INTERFAC [...] 0.20 K/uL INTERFACE SYSTEM 12/06/2004 2:52 PM WOOD LATHER Ant Bowling MD HEMATOLOGY ORDERABLE S INTERFACE SYSTEM Refer to clinic/hospital department * (ABNORMAL) CBC WITH DIFFERENTIAL (12/06/2004 2:52 PM WOOD LATHER) Pathologist [facility] WBC 6.0 4.0 - 9.8 K/uL INTERFACE [...] 12.4 fL INTERFACE SYSTEM 12/06/2004 2:52 PM WOOD LATHER Ant Bowling MD HEMATOLOGY ORDERABLE S INTERFACE SYSTEM Refer to clinic/hospital department * (ABNORMAL) PARVOVIRUS B19 AB IGG/IGM (12/06/2004 2:52 PM WOOD LATHER) PARVOVIRUS B19 IGG ABS 4.2(H) <0.9 Index [...] these patients. ? Lab test performed by: [facility] [address] [place], [place] MISSY VALLADARES MD 12/06/2004 2:52 PM WOOD LATHER Ant Bowling MD CHEMISTRY ORDERABLES Performing Organization Address [facility] de Phone Number INTERFACE SYSTEM Refer to clinic/hospital department * TOXOPLASMOSIS IGM (12/06/2004 2:52 PM WOOD LATHER) TOXOPLASMOSIS IGG 0.20 EIA Value IN TERFACE [...] TOXOPLASMA IGM. ? Lab test performed by: [facility] [address] MARQUISE LAWSON MD TOXOPLASMOSIS IGM IN TERFACE SYSTEM Comment:NEGATIVE: NO IGM ANT IBODY TOXOPLASMOSIS IGM INTERP INTERFACE SYSTEM Comment: NO SEROLOGIC EVIDENCE OF INFECTION WITH TOXOPLASMA GONDII. ??CONSIDER RETESTING IN 3 WEEKS IF ACUTE INFECTION IS SUSPECTED.See Result Comment TOXOPLASMOSIS IGM COMMENT INTERFACE SYSTEM Comment: THIS INTERPRETATION CANNOT BE APPLIED TO INFANTS 15 MONTHS OF AGE OR LESS. ? Lab test performed by: [email or web address] [address] MARQUISE LAWSON MD See Result Comment 12/06/2004 2:52 PM WOOD LATHER Ant Bowling MD CHEMISTRY ORDERABLES INTERFACE SYSTEM Refer to clinic/hospital department * EBV IGM, VCA (12/06/2004 2:52 PM WOOD LATHER) Pathologist [facility] EBV IGM, VCA 0.00 EIA Value INTERFA CE SYSTEM EBV REFERENCE RANGE INTERFACE SYSTEM Comment: EIA VALUE ? INTERPRETATION < OR = 0.90 ? NEGATIVE - NO ANTIBODY DETECTED 0.91 - 1.09 ? EQUIVOCAL > OR = 1.10 ? POSITIVE - ANTIBODY DETECTED ? Lab test performed by: [id number] [address] MARQUISE LAWSON MD See Result Comment 12/06/2004 2:52 PM WOOD LATHER Ant Bowling MD CHEMISTRY ORDERABLES COM Performing Organization Address [facility] Phone Number INTERFACE SYSTEM Refer to clinic/hospital department * (ABNORMAL) EBV IGG, VCA (12/06/2004 2:52 PM WOOD LATHER) EBV IGG, VCA 3.76(H) EIA Value INTERFA CE SYSTEM EBV REFERENCE RANGE INTERFACE SYSTEM Comment: EIA VALUE ? INTERPRETATION < OR = 0.90 ? NEGATIVE - NO ANTIBODY DETECTED 0.91 - 1.09 ? EQUIVOCAL > OR = 1.10 ? POSITIVE - ANTIBODY DETECTED ? Lab test performed by: [facility] [address] MARQUISE LAWSON MD See Result Comment 12/06/2004 2:52 PM WOOD LATHER Ant Bowling MD CHEMISTRY ORDERABLES Performing Organization Address [facility] Phone Number INTERFACE SYSTEM Refer to clinic/hospital department * (ABNORMAL) CMV IGG (12/06/2004 2:52 PM WOOD LATHER) CMV IGG >5.00(H) EIA Value INTERFACE SYSTEM [...] USEFUL INFORMATION. ? [facility] [address] [place] [address] MARQUISE LAWSON MD 12/06/2004 2:52 PM WOOD LATHER Ant Bowling MD CHEMISTRY ORDERABLES Performing Organization Address [facility] Phone Number INTERFACE SYSTEM Refer to clinic/hospital department * (ABNORMAL) AMELIA (12/06/2004 2:52 PM WOOD LATHER) AMELIA SCREEN POSITIVE( A) NEGATIVE INTERFACE SYSTEM [...] ANTIBODY LEVEL ? [facility] [id number] [place] [address] MARQUISE LAWSON MD 12/06/2004 2:52 PM WOOD LATHER Ant Bowling MD CHEMISTRY ORDERABLES Performing Organization Address [facility] Phone Number INTERFACE SYSTEM Refer to clinic/hospital department documented in this encounter Visit Diagnoses Diagnosis Enlargement of lymph nodes- Primary documented in this encounter Care Teams Wind Tunnel Mechanic Relationship Specialty [place] [address] [place] [address] PCP - General 07/14/04 documented as of this encounter
--- OUTSIDE RECORDS SUMMARY | 2024-10-25 05:57 | XMS_ITS | Encounter Summary ---
Author Organization [facility] Address [address] [place] [address] Care Team Providers Care Nurse Quality Name Role Phone Liberty Hernandez MD Primary Care Provider [phone] Encounter Details Date Type Department Care Team (Latest Contact Info) Description 12/28/2004 Outpatient Historical HIS [facility] ANIKA Meyer, Donell Roche MD NO [...] TULAREMIA ANTIBODY Routine 12/28/2004 4: 17 PM DIRECTOR OF DANCE CMV IGM Routine 12/28/2004 4:17 PM DIRECTOR OF DANCE CMV IGG Routine 12/28/2004 4:17 PM DIRECTOR OF DANCE CORTISOL LEVEL Routine 12/28/2004 4:17 PM DIRECTOR OF DANCE documented in this encounter Results * CORTISOL LEVEL (12/28/2004 4:17 PM DIRECTOR OF DANCE) CORTISOL LEVEL 3.1 ug/dL INTER FACE SYSTEM Comment: Cortisol Reference Range: 7 - 10 AM: ?? 6.2 - 19.4 ug/dL 4 - ??8 PM: ?? 2.3 - 12.3 ug/dL 12/28/2004 4:17 PM DIRECTOR OF DANCE Donell Meyer MD CHEMISTRY ORDERABL ES Performing Organization Address [facility] de Phone Number INTERFACE SYSTEM Refer to clinic/hospital department * TULAREMIA ANTIBODY (12/28/2004 4:17 PM DIRECTOR OF DANCE) FRANCISELLA AB <20 INTER FACE SYSTEM Comment: Reference Range: ?<20 ??NEGATIVE A single titer of greater than 80 or a four-fold rise in titer is considered significant. ??Cross-reactions may occur between Francisella and Brucella antigens and antisera. Parallel testing is recommended for positive agglutinations. ? Lab test performed by: [facility] [address] [place] [address] Pj BUTLER MD 12/28/2004 4:17 PM DIRECTOR OF DANCE Donell Meyer MD CHEMISTRY ORDERABL ES Performing Organization Address [facility] de Phone Number INTERFACE SYSTEM Refer to clinic/hospital department * CMV IGM (12/28/2004 4:17 PM DIRECTOR OF DANCE) CMV IGM 0.24 EIA Value INTERFACE SYSTEM [...] MORE WEEKS. ? [facility] test [facility]: [facility] [address] [facility] [place] [address] MARQUISE LAWSON MD 12/28/2004 4:17 PM DIRECTOR OF DANCE Donell Meyer MD CHEMISTRY ORDERABL ES Performing Organization Address [facility] de Phone Number INTERFACE SYSTEM Refer to clinic/hospital department * (ABNORMAL) CMV IGG (12/28/2004 4:17 PM DIRECTOR OF DANCE) CMV IGG >5.00(H) EIA Value INTERFACE SYSTEM [...] USEFUL INFORMATION. ? Lab test performed by: [facility] [address] MARQUISE LAWSON MD 12/28/2004 4:17 PM DIRECTOR OF DANCE Donell Meyer MD CHEMISTRY ORDERABL ES Performing Organization Address [facility] Phone Number INTERFACE SYSTEM Refer to clinic/hospital department documented in this encounter Visit Diagnoses Diagnosis Enlargement of lymph nodes- Primary documented in this encounter Care Teams Nurse Quality Relationship Specialty [place] [address] [place] [address] PCP - General 07/14/04 documented as of this encounter
--- OUTSIDE RECORDS SUMMARY | 2024-10-25 05:57 | XMS_ITS | Encounter Summary ---
Author Organization [facility] Address [address] [place] [address] Care Team Providers Care Nuclear Plant Operator Name Role Phone Liberty Hernandez MD Primary Care Provider [phone] Encounter Details Date Type Department Care Team (Late st Contact Info) Description 05/18/2005 Outpatient Historical [facility] Ant Bowling MD [address] [address] LYMPHOMAS NEC HEAD (Primary Dx) Social History [...] Primary documented in this encounter Care Teams Nuclear Plant Operator Relationship Specialty [place] [address] [place] [address] PCP - General 07/14/04 documented as of this encounter
--- OUTSIDE RECORDS SUMMARY | 2024-10-25 05:57 | XMS_ITS | Encounter Summary ---
Author Organization [facility] Address [address] [place] [address] Care Team Providers Care Global Cto Name Role Phone Liberty Hernandez MD Primary Care Provider [phone] Encounter Details Date Type Department Care Team (Late st Contact Info) Description 06/09/2005 Outpatient Historical [facility] Social History Tobacco Use Types Packs/Day Years Used Date Smoking Tobacco: Never Assessed Sex and Gender Information Value Date Recorded Sex Assigned at Not on file Gender Identity Not on file Sexual Orientation Not on file documented as of this encounter Plan of Treatment Not on file documented as of this encounter Visit Diagnoses Not on filedocumented in this encounter Care Teams Global Cto Relationship Specialty [place] [address] [place] [address] PCP - General 07/14/04 documented as of this encounter
--- OUTSIDE RECORDS SUMMARY | 2024-10-25 05:57 | XMS_ITS | Encounter Summary ---
Author Organization [employer] Address [address] [place] [address] Care Team Providers Care Recycling Technician Name Role Phone Liberty Hernandez MD Primary Care Provider [phone] Encounter Details Date Type Department Care Team (Late st Contact Info) Description 05/04/2005 Outpatient Historical [facility] [address] [place] [id number] Yuri Leyav Social History Tobacco Use Types Packs/Day Years Used Date Smoking Tobacco: Never Assessed Sex and Gender Information Value Date Recorded Sex Assigned at Not on file Gender Identity Not on file Sexual Orientation Not on file documented as of this encounter Plan of Treatment Not on file documented as of this encounter Visit Diagnoses Not on filedocumented in this encounter Care Teams Recycling Technician Relationship Specialty [place] [address] [place] [address] PCP - General 07/14/04 documented as of this encounter
--- OUTSIDE RECORDS SUMMARY | 2024-10-25 05:57 | XMS_ITS | Encounter Summary ---
Author Organization [email or web address] Address [address] [place] [address] Care Team Providers Care Charger Operator Helper Name Role Phone Liberty Hernandez MD Primary Care Provider [phone] Encounter Details Date Type Department Care Team [...] CBC WITH DIFFERENTIAL Routine 11/10/2005 2:21 PM CASCADE OPERATOR CBC WITH DIFFERENTIAL Routine 11/10/2005 2:21 PM CASCADE OPERATOR COMPREHENSIVE METABOLIC PANEL Routine 11/10/2005 2:21 PM CASCADE OPERATOR documented in this encounter Results * (ABNORMAL) CBC WITH DIFFERENTIAL (11/10/2005 2:21 PM CASCADE OPERATOR) NEUTROPHILS 50 45 - 70 % INTERFAC [...] 0.20 K/uL INTERFACE SYSTEM 11/10/2005 2:21 PM CASCADE OPERATOR Wallace Anthony MD HEMATOLOGY ORDERABLE S Performing Organization Address [facility] de Phone Number INTERFACE SYSTEM Refer to clinic/hospital department * (ABNORMAL) CBC WITH DIFFERENTIAL (11/10/2005 2:21 PM CASCADE OPERATOR) WBC 5.0 4.0 - 9.8 K/uL INTERFACE [...] 12.4 fL INTERFACE SYSTEM 11/10/2005 2:21 PM CASCADE OPERATOR Wallace Anthony MD HEMATOLOGY ORDERABLE S Performing Organization Address [facility] de Phone Number INTERFACE SYSTEM Refer to clinic/hospital department * (ABNORMAL) COMPREHENSIVE METABOLIC PANEL (11/10/2005 2:21 PM CASCADE OPERATOR) GLUCOSE 107 65 - 109 mg/dL INTERFACE [...] 30 mmol/L INTERFACE SYSTEM 11/10/2005 2:21 PM CASCADE OPERATOR Wallace Anthony MD CHEMISTRY ORDERABLES INTERFACE SYSTEM Refer to clinic/hospital department documented in this encounter Visit Diagnoses Diagnosis Other malignant lymphomas, unspecified site, extranodal and solid organ sites- Primary documented in this encounter Care Teams Charger Operator Helper Relationship Specialty [place] [address] [place] [address] PCP - General 07/14/04 documented as of this encounter
--- OUTSIDE RECORDS SUMMARY | 2024-10-25 05:57 | XMS_ITS | Encounter Summary ---
Author Organization [employer] Address [address] [place] [address] Care Team Providers Care Roller Printing Supervisor Name Role Phone Liberty Hernandez MD Primary Care Provider [phone] Encounter Details Date Type Department Care Team (Latest Contact Info) Description 06/08/2005 Outpatient Historical [facility] Wallace Anthony MD NO [...] Primary documented in this encounter Care Teams Roller Printing Supervisor Relationship Specialty [place] [address] [place] [address] PCP - General 07/14/04 documented as of this encounter
--- OUTSIDE RECORDS SUMMARY | 2024-10-25 05:57 | XMS_ITS | Encounter Summary ---
Author Organization [email or web address] Address [address] [place] [address] Care Team Providers Care Cook Tortilla Name Role Phone Liberty Hernandez MD Primary Care Provider [phone] Encounter Details Date Type Department Care Team [...] CBC WITH DIFFERENTIAL Routine 10/05/2005 8:28 AM PHYSICAL ANTHROPOLOGIST CBC WITH DIFFERENTIAL Routine 10/05/2005 8:28 AM PHYSICAL ANTHROPOLOGIST COMPREHENSIVE METABOLIC PANEL Routine 10/05/2005 8:28 AM PHYSICAL ANTHROPOLOGIST CBC WITH DIFFERENTIAL Routine 09/28/2005 2:20 PM PHYSICAL ANTHROPOLOGIST CBC WITH DIFFERENTIAL Routine 09/28/2005 2:20 PM PHYSICAL ANTHROPOLOGIST CBC WITH DIFFERENTIAL Routine 09/14/2005 11:06 AM PHYSICAL ANTHROPOLOGIST CBC WITH DIFFERENTIAL Routine 09/14/2005 11:06 AM PHYSICAL ANTHROPOLOGIST documented in this encounter Results * (ABNORMAL) CBC WITH DIFFERENTIAL (10/05/2005 8:28 AM PHYSICAL ANTHROPOLOGIST) NEUTROPHILS 46 45 - 70 % INTERFAC [...] 0.20 K/uL INTERFACE SYSTEM 10/05/2005 8:28 AM PHYSICAL ANTHROPOLOGIST Wallace Anthony MD HEMATOLOGY ORDERABLE S Performing Organization Address [facility] Phone Number INTERFACE SYSTEM Refer to clinic/hospital department * (ABNORMAL) CBC WITH DIFFERENTIAL (10/05/2005 8:28 AM PHYSICAL ANTHROPOLOGIST) Pathologist [facility] WBC 3.3(L) 4.0 - 9.8 K/uL INTERFACE [...] 12.4 fL INTERFACE SYSTEM 10/05/2005 8:28 AM PHYSICAL ANTHROPOLOGIST Wallace Anthony MD HEMATOLOGY ORDERABLE S Performing Organization Address [facility] [place] Phone Number INTERFACE SYSTEM Refer to clinic/hospital department * (ABNORMAL) COMPREHENSIVE METABOLIC PANEL (10/05/2005 8:28 AM PHYSICAL ANTHROPOLOGIST) GLUCOSE 94 65 - 109 mg/dL INTERFACE [...] 30 mmol/L INTERFACE SYSTEM 10/05/2005 8:28 AM PHYSICAL ANTHROPOLOGIST Wallace Anthony MD CHEMISTRY ORDERABLES Performing Organization Address [facility] Phone Number INTERFACE SYSTEM Refer to clinic/hospital department * (ABNORMAL) CBC WITH DIFFERENTIAL (09/28/2005 2:20 PM PHYSICAL ANTHROPOLOGIST) Pathologist [facility] NEUTROPHIL ABSOLUTE 1.56(L) 1.90 - 7.00 K/uL [...] Slight INTERFA CE SYSTEM 09/28/2005 2:20 PM PHYSICAL ANTHROPOLOGIST Wallace Anthony MD HEMATOLOGY ORDERABLE S Performing Organization Address City/[facility] de Phone Number INTERFACE SYSTEM Refer to clinic/hospital department * (ABNORMAL) CBC WITH DIFFERENTIAL (09/28/2005 2:20 PM PHYSICAL ANTHROPOLOGIST) WBC 3.4(L) 4.0 - 9.8 K/uL INTERFACE [...] 12.4 fL INTERFACE SYSTEM 09/28/2005 2:20 PM PHYSICAL ANTHROPOLOGIST Wallace Anthony MD HEMATOLOGY ORDERABLE S Performing Organization Address [facility] de Phone Number INTERFACE SYSTEM Refer to clinic/hospital department * (ABNORMAL) CBC WITH DIFFERENTIAL (09/14/2005 11:06 AM PHYSICAL ANTHROPOLOGIST) NEUTROPHIL ABSOLUTE 3.06 1.90 - 7.00 K/uL [...] Slight INTERFACE SYSTEM 09/14/2005 11:0 6 AM PHYSICAL ANTHROPOLOGIST Wallace Anthony MD HEMATOLOGY ORDERABLE S INTERFACE SYSTEM Refer to clinic/hospital department * (ABNORMAL) CBC WITH DIFFERENTIAL (09/14/2005 11:06 AM PHYSICAL ANTHROPOLOGIST) WBC 5.1 4.0 - 9.8 K/uL INTERFACE [...] fL INTERFACE SYSTEM 09/14/2005 11:0 6 AM PHYSICAL ANTHROPOLOGIST Wallace Anthony MD HEMATOLOGY ORDERABLE S Performing Organization Address [facility] de Phone Number INTERFACE SYSTEM Refer to clinic/hospital department documented in this encounter Visit Diagnoses Diagnosis Other malignant lymphomas, unspecified site, extranodal and solid organ sites- Primary documented in this encounter Care Teams Cook Tortilla Relationship Specialty [place] [address] [place] [address] PCP - General 07/14/04 documented as of this encounter
--- OUTSIDE RECORDS SUMMARY | 2024-10-25 05:57 | XMS_ITS | Encounter Summary ---
Author Organization [facility] Address [address] [place] [address] Care Team Providers Care Knockout Worker Name Role Phone Liberty Hernandez MD Primary Care Provider [phone] Encounter Details Date Type Department Care Team (Late st Contact Info) Description 07/14/2004 Outpatient Historical [facility] Ant Bowling MD [address] [address] ENLARGEMENT LYMPH NODES (Primary Dx) Social History [...] Primary documented in this encounter Care Teams Knockout Worker Relationship Specialty [place] [address] [place] [address] PCP - General 07/14/04 documented as of this encounter
--- OUTSIDE RECORDS SUMMARY | 2024-10-25 05:57 | XMS_ITS | Encounter Summary ---
Author Organization [facility] Address [address] [place] [address] Care Team Providers Care Wet Suit Gluer Name Role Phone Liberty Hernandez MD Primary Care Provider [phone] Encounter Details Date Type Department Care Team [...] CBC WITH DIFFERENTIAL Routine 09/07/2005 9:17 AM DRY HOUSE WORKER CBC WITH DIFFERENTIAL Routine 09/07/2005 9:17 AM DRY HOUSE WORKER COMPREHENSIVE METABOLIC PANEL Routine 09/07/2005 9:17 AM DRY HOUSE WORKER CBC WITH DIFFERENTIAL Routine 08/24/2005 8:02 AM CDT CBC WITH DIFFERENTIAL Routine 08/24/2005 8:02 AM CDT CBC WITH DIFFERENTIAL Routine 08/17/2005 8:22 AM CDT CBC WITH DIFFERENTIAL Routine 08/17/2005 8:22 AM CDT documented in this encounter Results * (ABNORMAL) CBC WITH DIFFERENTIAL (09/07/2005 9:17 AM DRY HOUSE WORKER) NEUTROPHILS 56 45 - 70 % INTERFAC [...] 0.20 K/uL INTERFACE SYSTEM 09/07/2005 9:17 AM DRY HOUSE WORKER Wallace Anthony MD HEMATOLOGY ORDERABLE S Performing Organization Address [facility] Phone Number INTERFACE SYSTEM Refer to clinic/hospital department * (ABNORMAL) CBC WITH DIFFERENTIAL (09/07/2005 9:17 AM DRY HOUSE WORKER) WBC 4.4 4.0 - 9.8 K/uL INTERFACE [...] 12.4 fL INTERFACE SYSTEM 09/07/2005 9:17 AM DRY HOUSE WORKER Wallace Anthony MD HEMATOLOGY ORDERABLE S Performing Organization Address [facility] de Phone Number INTERFACE SYSTEM Refer to clinic/hospital department * (ABNORMAL) COMPREHENSIVE METABOLIC PANEL (09/07/2005 9:17 AM DRY HOUSE WORKER) GLUCOSE 64(L) 65 - 109 mg/dL INTERFACE [...] 30 mmol/L INTERFACE SYSTEM 09/07/2005 9:17 AM DRY HOUSE WORKER Wallace Anthony MD CHEMISTRY ORDERABLES Performing Organization Address [facility] Phone Number INTERFACE SYSTEM Refer to clinic/hospital [...] Organization Address [facility] Phone Number INTERFACE SYSTEM Refer to clinic/hospital [...] Organization Address [facility] Phone Number INTERFACE SYSTEM Refer to clinic/hospital department * (ABNORMAL) CBC WITH DIFFERENTIAL (08/17/2005 8:22 AM CDT) Pathologist [facility] NEUTROPHILS 45 45 - 70 % INTERFAC [...] Organization Address [facility] Phone Number INTERFACE SYSTEM Refer to clinic/hospital [...] Primary documented in this encounter Care Teams Wet Suit Gluer Relationship Specialty [place] [address] [place] [address] PCP - General 07/14/04 documented as of this encounter
== END 2024-10-20 17:16 | disposition home or self-care (01) ==
PROVIDERS: Emergency Provider Emergency Medicine; PCP Family Medicine
DX: R06.00 Dyspnea, unspecified (principal); R09.81 Nasal congestion; Z20.822 Contact with and (suspected) exposure to COVID-19; I25.10 Atherosclerotic heart disease of native coronary artery without angina pectoris; I10 Essential (primary) hypertension; E78.5 Hyperlipidemia, unspecified; K21.9 Gastro-esophageal reflux disease without esophagitis; Z95.1 Presence of aortocoronary bypass graft; Z85.72 Personal history of non-Hodgkin lymphomas; Z92.21 Personal history of antineoplastic chemotherapy; Z87.891 Personal history of nicotine dependence; Z90.710 Acquired absence of both cervix and uterus
CPT/HCPCS: 36415; 70486; 71046; 80053; 85025; 87637; 93005; 99284

== ENCOUNTER 2025-01-15 10:42 | Outpatient (CLI) | payer OTHER, SELFPAY ==
--- NOTE | ~2025-01-15 | DEXA_ITS ---
Bone Density Report Name: MARY BULL Age: 64 Sex: Female Ethnicity: White Date of : 1960 Indication: postmenopausal; screening for osteoporosis; height loss; cancer; hysterectomy; Referring Provider: ROWDY, LAURIE Study: Bone densitometry was performed. Exam Date: January 15, 2025 Accession number: [id number] Bone Density: Region BMD T-score Z-score Classification AP Spine(L1-L4) 0.989 -0.5 1.3 Normal Femoral Neck (Left) 0.663 -1.7 -0.1 Osteopenia Total Hip (Left) 0.773 -1.4 -0.1 Osteopenia Femoral Neck (Right) 0.555 -2.6 -1.1 Osteoporosis Total Hip (Right) 0.762 -1.5 -0.2 Osteopenia Total Hip Mean 0.767 -1.5 -0.2 Osteopenia World Health Organization criteria for BMD impression classify patients as: Normal (T-score at or above -1.0), Osteopenia (T-score between -1.0 and -2.5), or Osteoporosis (T-score at or below -2.5). 10-year Fracture Risk: FRAX not reported because: Some T-score for Spine Total or Hip Total or Femoral Neck at or below -2.5 Clinical Information Provided by Patient: Has used the following medications: Vitamin D Has the following medical conditions: Cancer, Hysterectomy, lymphoma Patient maximum height was 63 Menopause Age: 38 Does not regularly consume dairy products Drinks caffeinated beverages Onset of menses at age 11 Number of children 2 Impression: The patient has osteoporosis, based on the Right Femoral Neck T-score. Discussion: INCREASED RISK OF FRACTURE. BONE DENSITY IS UNDESIRABLY LOW AT ONE OR MORE SKELETAL SITES, CONSISTENT WITH POSTMENOPAUSAL OSTEOPOROSIS. This patient's lowest T-score meets the World Health Organization's (WHO) criteria for osteoporosis at one or more sites (T-score -2.5 or below). In untreated patients, the risk of osteoporotic fracture increases approximately two-fold for each 1.0 SD decrease in T-score. Low bone density is not the only risk factor for fracture; also consider factors such as patient's age, frailty or poor health, risk of falling, risk of injury, previous osteoporotic fracture, family history of osteoporosis, cigarette smoking, low body weight, etc. Not everyone with low bone mineral density has osteoporosis; osteomalacia and other metabolic bone disorders should also be considered. Patients who have osteoporosis should be evaluated for specific diseases and conditions (secondary causes) that may cause or contribute to bone loss. The [place] Association of Clinical Endocrinologists (AACE) and National Osteoporosis Foundation (NOF) recommend pharmacologic intervention for all postmenopausal women whose T-score is in this range. The patient should follow a healthful lifestyle (good nutrition with adequate calcium and vitamin D, and appropriate weight-bearing exercise). Follow-Up: Consider a repeat BMD and Vertebral Fracture Assessment (VFA) exam in 2 years or sooner if medically necessary, to reassess this patient's status. Reported by: LULA on 01/15/2025 11:20:00 AM. Reviewed, dictated and finalized at location A. GREG
--- OUTSIDE RECORDS SUMMARY | 2025-01-15 12:20 | XMS_ITS | Encounter Summary ---
Author Organization [facility] Address [address] [place] [address] Care Team Providers Care Pipe Line Maintenance Supervisor Name Role Phone Liberty Hernandez MD Primary Care Provider [phone] Encounter Details Date Type Department Care Team (Latest Contact Info) Description 06/08/2005 Outpatient Historical [facility] Wallace Anthony MD NO ADDRESS ON FILE LYMPHOMA UNSP SITE XTRNOD/SOLID ORG (CMS/HCC) (Primary Dx) Social History Tobacco Use Types Packs/Day Years Used Date Smoking Tobacco: Never Assessed Comments Unknown Sex and Gender Information Value Date Recorded Sex Assigned at Not on file Legal Sex Female 5:10 AM 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
--- OUTSIDE RECORDS SUMMARY | 2025-01-15 12:20 | XMS_ITS | Encounter Summary ---
Author Organization [facility] Address [address] [place] [address] Care Team Providers Care Larry Car Operator Name Role Phone Liberty Hernandez MD Primary Care Provider Encounter Details Date Type Department Care Team (Late st Contact Info) Description 06/07/2006 Outpatient Historical [facility] Wallace Anthony MD NO ADDRESS ON FILE Social History Tobacco Use Types Packs/Day Years Used Date Smoking Tobacco: Never Assessed Comments Unknown Sex and Gender Information Value Date Recorded Sex Assigned at Not on file Legal Sex Female 5:10 AM LAUNDRY FOLDER Gender Identity Not on file Sexual Orientation Not on file documented as of this encounter Plan of Treatment Not on file documented as of this encounter Visit Diagnoses Not on filedocumented in this encounter Care Teams Larry Car Operator Relationship Specialty [place] [address] [place] [address] PCP - General 07/14/04 documented as of this encounter
--- OUTSIDE RECORDS SUMMARY | 2025-01-15 12:20 | XMS_ITS | Encounter Summary ---
Author Organization [facility] Address [address] [place] [address] Care Team Providers Care Alarm Technician Name Role Phone Liberty Hernandez MD Primary Care Provider [phone] Encounter Details Date Type Department Care Team (Late st Contact Info) Description 06/09/2005 Outpatient Historical [facility] Social History Tobacco Use Types Packs/Day Years Used Date Smoking Tobacco: Never Assessed Comments Unknown Sex and Gender Information Value Date Recorded Sex Assigned at Not on file Legal Sex Female 5:10 AM BRANCH ASSOCIATE TELLER Gender Identity Not on file Sexual Orientation Not on file documented as of this encounter Plan of Treatment Not on file documented as of this encounter Visit Diagnoses Not on filedocumented in this encounter Care Teams Alarm Technician Relationship Specialty [place] [address] [place] [address] PCP - General 07/14/04 documented as of this encounter
--- OUTSIDE RECORDS SUMMARY | 2025-01-15 12:20 | XMS_ITS | Encounter Summary ---
Author Organization [facility] Address [address] [place] [address] Care Team Providers Care Licensed Occupational Therapy Assistant Name Role Phone Liberty Hernandez MD Primary Care Provider [phone] Encounter Details Date Type Department Care Team (Latest Contact Info) Description 02/01/2006 Outpatient Historical [facility] Wallace Anthony MD NO ADDRESS ON FILE Hemangioma of Other Sites (Primary Dx) Social History Tobacco Use Types Packs/Day Years Used Date Smoking Tobacco: Never Assessed Comments Unknown Sex and Gender Information Value Date Recorded Sex Assigned at Not on file Legal Sex Female 5:10 AM SPARK PLUG TESTER Gender Identity Not on file Sexual Orientation [...] 5 AM CDT Wallace Anthony MD HEMATOLOGY ORDERABLES Final Result Performing Organization Address [facility] Phone Number INTERFACE SYSTEM Refer [...] 5 AM CDT Wallace Anthony MD HEMATOLOGY ORDERABLES Final Result Performing Organization Address [facility] de Phone Number INTERFACE SYSTEM Refer to clinic/hospital department * (ABNORMAL) LACTATE DEHYDROGENASE (02/08/2006 11:05 AM CDT) LD (LACTATE DEHYDROGENASE) 217(H) 135 - 214 U/L INTERFACE SYSTEM 02/08/2006 11:0 5 AM CDT Wallace Anthony MD CHEMISTRY ORDERABLES Final R esult INTERFACE SYSTEM Refer to clinic/hospital department * [...] INTERFACE SYSTEM 02/08/2006 11:0 5 AM CDT us Wallace Anthony MD CHEMISTRY ORDERABLES Final R esult Performing Organization Address [facility] Co de Phone Number INTERFACE SYSTEM Refer to clinic/hospital department documented in this encounter Visit Diagnoses Diagnosis Hemangioma of other sites- Primary documented in this encounter Care Teams Licensed Occupational Therapy Assistant Relationship Specialty [place] [address] [place] [address] PCP - General 07/14/04 documented as of this encounter
--- OUTSIDE RECORDS SUMMARY | 2025-01-15 12:20 | XMS_ITS | Encounter Summary ---
Author Organization [facility] Address 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
--- OUTSIDE RECORDS SUMMARY | 2025-01-15 12:20 | XMS_ITS | Encounter Summary ---
Author Organization [employer] [facility] Address [address] [place] [address] Care Team Providers Care Switching Operator Name Role Phone Liberty Hernandez MD Primary Care Provider [phone] Encounter Details Date Type Department Care Team [...] on file Legal Sex Female 5:10 AM ELECTRIC MOTOR REPAIRMAN Gender Identity Not on file Sexual Orientation [...] K/uL INTERFACE SYSTEM 08/03/2005 8:31 AM CDT us Wallace Anthony MD HEMATOLOGY ORDERABLES Final Result INTERFACE SYSTEM Refer to clinic/hospital department * (ABNORMAL) CBC WITH DIFFERENTIAL (08/03/2005 8:31 AM CDT) Pathologist [facility] WBC 3.8(L) 4.0 - 9.8 K/uL INTERFACE [...] fL INTERFACE SYSTEM 08/03/2005 8:31 AM CDT us Wallace Anthony MD HEMATOLOGY ORDERABLES Final Result Performing Organization Address [facility] de Phone Number INTERFACE SYSTEM Refer to clinic/hospital department * COMPREHENSIVE METABOLIC PANEL (08/03/2005 8:31 AM CDT) GLUCOSE 72 65 - 109 mg/dL INTERFACE [...] ORDERABLES Final R esult Performing Organization Address [facility] de Phone Number INTERFACE SYSTEM Refer to clinic/hospital department * (ABNORMAL) CBC WITH DIFFERENTIAL (07/26/2005 2:42 PM CDT) NEUTROPHILS 50 45 - 70 % INTERFAC [...] 2:42 PM CDT Wallace Anthony MD HEMATOLOGY ORDERABLES Final Result Performing Organization Address [facility] de Phone Number INTERFACE SYSTEM Refer to clinic/hospital department * (ABNORMAL) CBC WITH DIFFERENTIAL (07/26/2005 2:42 PM CDT) WBC 4.3 4.0 - 9.8 K/uL [...] 2:42 PM CDT Wallace Anthony MD HEMATOLOGY ORDERABLES Final Result Performing Organization Address [facility] Phone Number INTERFACE SYSTEM Refer to clinic/hospital department * (ABNORMAL) CBC WITH DIFFERENTIAL (07/14/2005 12:05 PM CDT) NEUTROPHILS 60 45 - 70 % INTERFAC [...] INTERFACE SYSTEM 07/14/2005 12:0 5 PM CDT us Wallace Anthony MD HEMATOLOGY ORDERABLES Final Result Performing Organization Address [facility] Phone Number INTERFACE SYSTEM Refer [...] INTERFACE SYSTEM 07/14/2005 12:0 5 PM CDT us Wallace Anthony MD HEMATOLOGY ORDERABLES Final Result Performing Organization Address [facility] Phone Number INTERFACE SYSTEM Refer [...] INTERFACE SYSTEM 07/14/2005 12:0 5 PM CDT us Wallace Anthony MD CHEMISTRY ORDERABLES Final R esult INTERFACE SYSTEM Refer to clinic/hospital department documented in this encounter Visit Diagnoses Diagnosis Other malignant lymphomas, unspecified site, extranodal and solid organ sites (CMS/HCC)- Primary Other malignant lymphomas, unspecified site, extranodal and solid organ sites documented in this encounter Care Teams Switching Operator Relationship Specialty [place] [address] [place] [address] PCP - General 07/14/04 documented as of this encounter
--- OUTSIDE RECORDS SUMMARY | 2025-01-15 12:20 | XMS_ITS | Encounter Summary ---
Author Organization [employer] [facility] Address 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
--- OUTSIDE RECORDS SUMMARY | 2025-01-15 12:20 | XMS_ITS | Encounter Summary ---
Author Organization [facility] Address [address] [place] [address] Care Team Providers Care Sand Mixer Name Role Phone Liberty Hernandez MD Primary Care Provider [phone] Encounter Details Date Type Department Care Team [...] on file Legal Sex Female 5:10 AM ANTIQUE FURNITURE REPRODUCER Gender Identity Not on file Sexual Orientation Not on file documented as of this encounter Plan of Treatment Not on file documented as of this encounter Procedures Procedure Name Priority Date/Time Associated Diagnosis Comments CBC WITH DIFFERENTIAL Routine 09/07/2005 9:17 AM ANTIQUE FURNITURE REPRODUCER CBC WITH DIFFERENTIAL Routine 09/07/2005 9:17 AM ANTIQUE FURNITURE REPRODUCER COMPREHENSIVE METABOLIC PANEL Routine 09/07/2005 9:17 AM ANTIQUE FURNITURE REPRODUCER CBC WITH DIFFERENTIAL Routine 08/24/2005 8:02 AM CDT CBC WITH DIFFERENTIAL Routine 08/24/2005 8:02 AM CDT CBC WITH DIFFERENTIAL Routine 08/17/2005 8:22 AM CDT CBC WITH DIFFERENTIAL Routine 08/17/2005 8:22 AM CDT documented in this encounter Results * (ABNORMAL) CBC WITH DIFFERENTIAL (09/07/2005 9:17 AM ANTIQUE FURNITURE REPRODUCER) NEUTROPHILS 56 45 - 70 % INTERFAC [...] 0.20 K/uL INTERFACE SYSTEM 09/07/2005 9:17 AM ANTIQUE FURNITURE REPRODUCER us Wallace Anthony MD HEMATOLOGY ORDERABLES Final Result Performing Organization Address [facility] de Phone Number INTERFACE SYSTEM Refer to clinic/hospital department * (ABNORMAL) CBC WITH DIFFERENTIAL (09/07/2005 9:17 AM ANTIQUE FURNITURE REPRODUCER) Pathologist [facility] WBC 4.4 4.0 - 9.8 K/uL INTERFACE [...] 12.4 fL INTERFACE SYSTEM 09/07/2005 9:17 AM ANTIQUE FURNITURE REPRODUCER us Wallace Anthony MD HEMATOLOGY ORDERABLES Final Result Performing Organization Address [facility] de Phone Number INTERFACE SYSTEM Refer to clinic/hospital department * (ABNORMAL) COMPREHENSIVE METABOLIC PANEL (09/07/2005 9:17 AM ANTIQUE FURNITURE REPRODUCER) GLUCOSE 64(L) 65 - 109 mg/dL INTERFACE [...] 30 mmol/L INTERFACE SYSTEM 09/07/2005 9:17 AM ANTIQUE FURNITURE REPRODUCER Wallace Anthony MD CHEMISTRY ORDERABLES Final R esult Performing Organization Address [facility] de Phone Number INTERFACE SYSTEM Refer to clinic/hospital department * (ABNORMAL) CBC WITH DIFFERENTIAL (08/24/2005 8:02 AM CDT) Pathologist [facility] NEUTROPHILS 63 45 - 70 % INTERFAC [...] K/uL INTERFACE SYSTEM 08/24/2005 8:02 AM CDT us Wallace Anthony MD HEMATOLOGY ORDERABLES Final Result Performing Organization Address [facility]/ZIP Co de Phone Number INTERFACE SYSTEM Refer to clinic/hospital department * (ABNORMAL) CBC WITH DIFFERENTIAL (08/24/2005 8:02 AM CDT) Pathologist [facility] WBC 5.0 4.0 - 9.8 K/uL INTERFACE [...] fL INTERFACE SYSTEM 08/24/2005 8:02 AM CDT us Wallace Anthony MD HEMATOLOGY ORDERABLES Final Result Performing Organization Address [facility] Phone Number INTERFACE SYSTEM Refer to clinic/hospital department * (ABNORMAL) CBC WITH DIFFERENTIAL (08/17/2005 8:22 AM CDT) Pathologist [facility] NEUTROPHILS 45 45 - 70 % INTERFAC [...] K/uL INTERFACE SYSTEM 08/17/2005 8:22 AM CDT us Wallace Anthony MD HEMATOLOGY ORDERABLES Final Result Performing Organization Address [facility] de Phone Number INTERFACE SYSTEM Refer [...] 8:22 AM CDT Wallace Anthony MD HEMATOLOGY ORDERABLES Final Result Performing Organization Address [facility] Phone Number INTERFACE SYSTEM Refer to clinic/hospital department documented in this encounter Visit Diagnoses Diagnosis Other malignant lymphomas, unspecified site, extranodal and solid organ sites (CMS/HCC)- Primary Other malignant lymphomas, unspecified site, extranodal and solid organ sites documented in this encounter Care Teams Sand Mixer Relationship Specialty [place] [address] [place] [address] PCP - General 07/14/04 documented as of this encounter
--- OUTSIDE RECORDS SUMMARY | 2025-01-15 12:20 | XMS_ITS | Clinical Summary ---
Author Organization [facility] Address [address] [place] [address] Phone Care Team Providers Care Bridge Operator Slip Name Role Phone Liberty Hernandez MD Primary Care Provider [phone] Allergies No known active allergies Medications evolocumab (REPATHA SURECLICK) 140 mg/mL Pen Injector [...] tablet Take 30 mg by mouth daily manager relationship. Active HYDROcodone-ryan atropine (HYCODAN) 5-1.5 mg Tablet Take 1 Tablet by mouth every 4 hours as needed for Cough. Active HYDROcodone-meche taminophen (XODOL) 10-300 mg Tablet Take 0.5 Tablets by mouth every 4 hours as needed for Pain, Moderate. Active aspirin (NEREIDA CHEWABLE) 81 mg Tablet, Chewable Take 81 mg by mouth daily. 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 Gender Identity Not on file Sexual Orientation Not on file Last Filed Vital Signs Vital Sign Reading Time Taken Comments Blood Pressure 126/71 07/04/2019 3:00 AM CDT Pulse 61 07/04/2019 3:00 AM CDT Temperature 36.7 C (98.1 F) 07/04/2019 2:13 AM CDT Respiratory Rate 18 07/04/2019 2:13 AM CDT [...] Flex Sig/CT Colonography Q 5 years 2003 PNEUMOCOCCAL VACCINE 50+ YEARS (1 of 1 - PCV) 08/14/20 08 ZOSTER VACCINE (1 of 2) 2008 OSTEOPOROSIS SCREENING 2023 INFLUENZA VACCINE (#1) 2024 DTAP/TDAP/TD VACCINES (2 - Td or Tdap) 07/04/2029 RSV VACCINE (60+ or ) (1 - 1-dose 75+ series) 2033 Care Teams Bridge Operator Slip Relationship Specialty [place] [address] [place] [address] PCP - General 07/14/04
--- OUTSIDE RECORDS SUMMARY | 2025-01-15 12:20 | XMS_ITS | Encounter Summary ---
Author Organization [facility] Address [address] [place] [address] Care Team Providers Care Photograph Retoucher Name Role Phone Liberty Hernandez MD Primary Care Provider [phone] Encounter Details Date Type Department Care Team (Latest Contact Info) Description 06/07/2006 Outpatient Historical [facility] Wallace Anthony MD NO ADDRESS ON FILE Lymphomas NEC Extranodal/NOS (CMS/HCC) (Primary Dx) Social History Tobacco Use Types Packs/Day Years Used Date Smoking Tobacco: Never Assessed Comments Unknown Sex and Gender Information Value Date Recorded Sex Assigned at Not on file Legal Sex Female 5:10 AM POULTRY PINNER Gender Identity Not on file Sexual Orientation [...] 6 AM CDT Wallace Anthony MD HEMATOLOGY ORDERABLES Final Result Performing Organization Address [facility] Phone Number INTERFACE SYSTEM [...] 6 AM CDT Wallace Anthony MD HEMATOLOGY ORDERABLES Final Result Performing Organization Address [facility] Phone Number INTERFACE SYSTEM [...] INTERFACE SYSTEM 06/14/2006 10:2 6 AM CDT us Wallace Anthony MD CHEMISTRY ORDERABLES Final R esult INTERFACE SYSTEM Refer to clinic/hospital department documented in this encounter Visit Diagnoses Diagnosis Other malignant lymphomas, unspecified site, extranodal and solid organ sites (CMS/HCC)- Primary Other malignant lymphomas, unspecified site, extranodal and solid organ sites documented in this encounter Care Teams Photograph Retoucher Relationship Specialty [place] [address] [place] [address] PCP - General 07/14/04 documented as of this encounter
--- OUTSIDE RECORDS SUMMARY | 2025-01-15 12:20 | XMS_ITS | Encounter Summary ---
Author Organization [facility] Address 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 CUTTER Gender Identity Not on file Sexual Orientation Not on file documented as of this encounter Plan of Treatment Not on file documented as of this encounter Procedures Procedure Name Priority Date/Time Associated Diagnosis Comments CBC WITH DIFFERENTIAL Routine 10/05/2005 8:28 AM BOLT CUTTER CBC WITH DIFFERENTIAL Routine 10/05/2005 8:28 AM BOLT CUTTER COMPREHENSIVE METABOLIC PANEL Routine 10/05/2005 8:28 AM BOLT CUTTER CBC WITH DIFFERENTIAL Routine 09/28/2005 2:20 PM BOLT CUTTER CBC WITH DIFFERENTIAL Routine 09/28/2005 2:20 PM BOLT CUTTER CBC WITH DIFFERENTIAL Routine 09/14/2005 11:06 AM BOLT CUTTER CBC WITH DIFFERENTIAL Routine 09/14/2005 11:06 AM BOLT CUTTER documented in this encounter Results * (ABNORMAL) CBC WITH DIFFERENTIAL (10/05/2005 8:28 AM BOLT CUTTER) NEUTROPHILS 46 45 - 70 % INTERFAC [...] 0.20 K/uL INTERFACE SYSTEM 10/05/2005 8:28 AM BOLT CUTTER us Wallace Anthony MD HEMATOLOGY ORDERABLES Final Result Performing Organization Address [facility] de Phone Number INTERFACE SYSTEM Refer to clinic/hospital department * (ABNORMAL) CBC WITH DIFFERENTIAL (10/05/2005 8:28 AM BOLT CUTTER) Pathologist [facility] WBC 3.3(L) 4.0 - 9.8 K/uL INTERFACE [...] 12.4 fL INTERFACE SYSTEM 10/05/2005 8:28 AM BOLT CUTTER us Wallace Anthony MD HEMATOLOGY ORDERABLES Final Result Performing Organization Address [facility] de Phone Number INTERFACE SYSTEM Refer to clinic/hospital department * (ABNORMAL) COMPREHENSIVE METABOLIC PANEL (10/05/2005 8:28 AM BOLT CUTTER) Pathologist [facility] GLUCOSE 94 65 - 109 mg/dL INTERFACE [...] 30 mmol/L INTERFACE SYSTEM 10/05/2005 8:28 AM BOLT CUTTER us Wallace Anthony MD CHEMISTRY ORDERABLES Final R esult INTERFACE SYSTEM Refer to clinic/hospital department * (ABNORMAL) CBC WITH DIFFERENTIAL (09/28/2005 2:20 PM BOLT CUTTER) Pathologist [facility] NEUTROPHIL ABSOLUTE 1.56(L) 1.90 - 7.00 K/uL [...] Slight INTERFA CE SYSTEM 09/28/2005 2:20 PM BOLT CUTTER us Wallace Anthony MD HEMATOLOGY ORDERABLES Final Result Performing Organization Address [facility] de Phone Number INTERFACE SYSTEM Refer to clinic/hospital department * (ABNORMAL) CBC WITH DIFFERENTIAL (09/28/2005 2:20 PM BOLT CUTTER) WBC 3.4(L) 4.0 - 9.8 K/uL INTERFACE [...] 12.4 fL INTERFACE SYSTEM 09/28/2005 2:20 PM BOLT CUTTER us Wallace Anthony MD HEMATOLOGY ORDERABLES Final Result Performing Organization Address [facility] Phone Number INTERFACE SYSTEM Refer to clinic/hospital department * (ABNORMAL) CBC WITH DIFFERENTIAL (09/14/2005 11:06 AM BOLT CUTTER) NEUTROPHIL ABSOLUTE 3.06 1.90 - 7.00 K/uL [...] Slight INTERFACE SYSTEM 09/14/2005 11:0 6 AM BOLT CUTTER Wallace Anthony MD HEMATOLOGY ORDERABLES Final Result Performing Organization Address [facility] Co de Phone Number INTERFACE SYSTEM Refer to clinic/hospital department * (ABNORMAL) CBC WITH DIFFERENTIAL (09/14/2005 11:06 AM BOLT CUTTER) WBC 5.1 4.0 - 9.8 K/uL INTERFACE [...] fL INTERFACE SYSTEM 09/14/2005 11:0 6 AM BOLT CUTTER Wallace Anthony MD HEMATOLOGY ORDERABLES Final Result Performing Organization Address [facility] Co de Phone Number INTERFACE SYSTEM Refer to clinic/hospital department documented in this encounter Visit Diagnoses Diagnosis Other malignant lymphomas, unspecified site, 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
--- OUTSIDE RECORDS SUMMARY | 2025-01-15 12:20 | XMS_ITS | Encounter Summary ---
Author Organization [employer] Address [address] [place] [address] Care Team Providers Care Tube Blower Name Role Phone Liberty Hernandez MD Primary Care Provider [phone] Encounter Details Date Type Department Care Team [...] on file Legal Sex Female 5:10 AM QUALITY ASSURANCE INTERN Gender Identity Not on file Sexual Orientation Not on file documented as of this encounter Plan of Treatment Not on file documented as of this encounter Procedures Procedure Name Priority Date/Time Associated Diagnosis Comments CBC WITH DIFFERENTIAL Routine 11/10/2005 2:21 PM QUALITY ASSURANCE INTERN CBC WITH DIFFERENTIAL Routine 11/10/2005 2:21 PM QUALITY ASSURANCE INTERN COMPREHENSIVE METABOLIC PANEL Routine 11/10/2005 2:21 PM QUALITY ASSURANCE INTERN documented in this encounter Results * (ABNORMAL) CBC WITH DIFFERENTIAL (11/10/2005 2:21 PM QUALITY ASSURANCE INTERN) NEUTROPHILS 50 45 - 70 % INTERFAC [...] 0.20 K/uL INTERFACE SYSTEM 11/10/2005 2:21 PM QUALITY ASSURANCE INTERN Wallace Anthony MD HEMATOLOGY ORDERABLES Final Result Performing Organization Address City/[facility] de Phone Number INTERFACE SYSTEM Refer to clinic/hospital department * (ABNORMAL) CBC WITH DIFFERENTIAL (11/10/2005 2:21 PM QUALITY ASSURANCE INTERN) WBC 5.0 4.0 - 9.8 K/uL INTERFACE [...] 12.4 fL INTERFACE SYSTEM 11/10/2005 2:21 PM QUALITY ASSURANCE INTERN Wallace Anthony MD HEMATOLOGY ORDERABLES Final Result Performing Organization Address City/[facility] de Phone Number INTERFACE SYSTEM Refer to clinic/hospital department * (ABNORMAL) COMPREHENSIVE METABOLIC PANEL (11/10/2005 2:21 PM QUALITY ASSURANCE INTERN) GLUCOSE 107 65 - 109 mg/dL INTERFACE [...] 30 mmol/L INTERFACE SYSTEM 11/10/2005 2:21 PM QUALITY ASSURANCE INTERN us Wallace Anthony MD CHEMISTRY ORDERABLES Final R esult INTERFACE SYSTEM Refer to clinic/hospital department documented in this encounter Visit Diagnoses Diagnosis Other malignant lymphomas, unspecified site, extranodal and solid organ sites (CMS/HCC)- Primary Other malignant lymphomas, unspecified site, extranodal and solid organ sites documented in this encounter Care Teams Tube Blower Relationship Specialty [place] [address] [place] [address] PCP - General 07/14/04 documented as of this encounter
--- OUTSIDE RECORDS SUMMARY | 2025-01-15 12:20 | XMS_ITS | Encounter Summary ---
Author Organization [facility] Address 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) Social History Tobacco Use Types Packs/Day Years Used Date Smoking Tobacco: Never Assessed Comments Unknown Sex and Gender Information Value Date Recorded Sex Assigned at Not on file Legal Sex Female 5:10 AM CERTIFIED ORTHOTIST PRACTICE MANAGER Gender Identity Not on file Sexual Orientation Not on file documented as of this encounter Plan of Treatment Not on file documented as of this encounter Procedures Procedure Name Priority Date/Time Associated Diagnosis Comments CBC WITH DIFFERENTIAL Stat 12/22/2008 3:01 PM CERTIFIED ORTHOTIST PRACTICE MANAGER COMPREHENSIVE METABOLIC PANEL Stat 12/22/2008 3:01 PM CERTIFIED ORTHOTIST PRACTICE MANAGER documented in this encounter Results * COMPREHENSIVE METABOLIC PANEL (12/22/2008 3:01 PM CERTIFIED ORTHOTIST PRACTICE MANAGER) GLUCOSE 96 65 - 99 mg/dL [facility] AST 32 12 - 32 U/L [facility] BUN 14 6 - 20 mg/dL [facility] CALCIUM 9.5 8.6 - 10.2 mg/dL [facility] ALBUMIN 4.4 3.4 - 4.8 g/dL [facility] CHLORIDE 100 96 - 108 mmol/L [facility] CREATININE 0.71 0.51 - 0.95 mg/dL [facility] ALT 24 0 - 31 U/L [facility] SODIUM 136 135 - 145 mmol/L [facility] ALKALINE PHOSPHATASE 70 35 - 104 U/L [facility] CO2 30 22 - 30 mmol/L [facility] BILIRUBIN TOTAL 0.2 0.2 - 1.0 mg/dL [facility] POTASSIUM 3.5 3.5 - 4.9 mmol/L [facility] TOTAL PROTEIN 7.1 6.3 - 8.6 g/dL [facility] GFR, >60 >=60 mL/min/1.7 sq meter [facility] GFR >60 >=60 mL/min/1.7 sq meter [facility] Comment: Modification of Diet in Renal Disease (MDRD) study formula. Estimated GFR rate interpretative information for both Americans and non- Americans is available on the [facility] Intranet at: [email or web address] Select: Lab Policies and Procedures Select: Reference Ranges - GFR Blood specimen (specimen) 12/22/2008 3:01 PM CERTIFIED ORTHOTIST PRACTICE MANAGER 12/22/2008 3:02 PM CERTIFIED ORTHOTIST PRACTICE MANAGER us Wallace Anthony MD CHEMISTRY ORDERABLES Edited INTERFACE SYSTEM Refer to clinic/hospital department [facility] CLIA# [id number] [address] [place] [address] * (ABNORMAL) CBC WITH DIFFERENTIAL (12/22/2008 3:01 PM CERTIFIED ORTHOTIST PRACTICE MANAGER) HEMATOCRIT 34.4(L) 35.5 - 44.0 % [facility] RDW-STDEV 40.0 37.1 - 48.7 fL [facility] RBC 3.82(L) 3.90 - 4.90 M/uL [facility] MCHC 35.5 31.5 - 35.5 % [facility] MCV 90.1 82.0 - 99.0 fL [facility] PLATELETS 285 140 - 350 K/uL [facility] HEMOGLOBIN 12.2 11.8 - 14.8 g/dL [facility] RDW 12.3 11.5 - 14.5 % [facility] WBC 6.6 4.0 - 9.8 K/uL [facility] MCH 31.9 27.2 - 32.6 pg [facility] MPV 8.8(L) 9.3 - 12.4 fL [facility] BASOPHILS ABSOLUTE 0.03 0.00 - 0.20 K/uL [facility] MONOCYTES 13 3 - 13 % [facility] MONOCYTE ABSOLUTE 0.87 0.10 - 1.30 K/uL [facility] NEUTROPHILS 47 45 - 70 % [facility] NEUTROPHIL ABSOLUTE 3.13 1.90 - 7.00 K/uL [facility] EOSINOPHILS 1 0 - 7 % [facility] EOSINOPHIL ABSOLUTE 0.08 0.00 - 0.70 K/uL [facility] LYMPHOCYTES 38 16 - 45 % [facility] LYMPHOCYTE ABSOLUTE 2.51 0.70 - 4.50 K/uL [facility] BASOPHILS 1 0 - 2 % [facility] Blood specimen (specimen) 12/22/2008 3:01 PM CERTIFIED ORTHOTIST PRACTICE MANAGER 12/22/2008 3:02 PM CERTIFIED ORTHOTIST PRACTICE MANAGER us Wallace Anthony MD HEMATOLOGY ORDERABLES Edited INTERFACE SYSTEM Refer to clinic/hospital department [facility] CLIA# [id number] [address] [place] [address] documented in this encounter Visit Diagnoses Diagnosis 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
--- OUTSIDE RECORDS SUMMARY | 2025-01-15 12:20 | XMS_ITS | Encounter Summary ---
Author Organization [facility] Address 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 Gender Identity Not on file Sexual Orientation [...] CDT) POTASSIUM 3.9 3.5 - 4.9 mmol/L [facility] TOTAL PROTEIN 6.7 6.3 - 8.6 g/dL [facility] GLUCOSE 65 65 - 99 mg/dL [facility] AST 26 12 - 32 U/L [facility] BUN 17 6 - 20 mg/dL [facility] CALCIUM 9.6 8.6 - 10.2 mg/dL [facility] ALBUMIN 4.2 3.4 - 4.8 g/dL [facility] CHLORIDE 104 96 - 108 mmol/L [facility] CREATININE 0.70 0.51 - 0.95 mg/dL [facility] ALT 18 0 - 31 U/L [facility] SODIUM 138 135 - 145 mmol/L [facility] ALKALINE PHOSPHATASE 55 35 - 104 U/L [facility] CO2 25 22 - 30 mmol/L [facility] BILIRUBIN TOTAL 0.2 0.2 - 1.0 mg/dL [facility] GFR, >60 >=60 mL/min/1.7 sq meter [facility] GFR >60 >=60 mL/min/1.7 sq meter [facility] Comment: Modification of Diet in Renal Disease (MDRD) study formula. Estimated GFR rate interpretative information for both Americans and non- Americans is available on the [facility] Intranet at: [email or web address] Select: Lab Policies and Procedures Select: Reference Ranges - GFR Blood specimen (specimen) 07/01/2009 9:26 AM CDT 07/01/2009 9:26 AM CDT us Wallace Anthony MD CHEMISTRY ORDERABLES Edited [facility] CLIA# [id number] [address] [place] [address] * (ABNORMAL) CBC WITH DIFFERENTIAL (07/01/2009 9:26 AM CDT) HEMATOCRIT 35.7 35.5 - 44.0 % [facility] RDW-STDEV 41.7 37.1 - 48.7 fL [facility] RBC 3.83(L) 3.90 - 4.90 M/uL [facility] MCHC 34.2 31.5 - 35.5 % [facility] MCV 93.2 82.0 - 99.0 fL [facility] PLATELETS 274 140 - 350 K/uL [facility] HEMOGLOBIN 12.2 11.8 - 14.8 g/dL [facility] RDW 12.3 11.5 - 14.5 % [facility] WBC 4.8 4.0 - 9.8 K/uL [facility] MCH 31.9 27.2 - 32.6 pg [facility] MPV 9.1(L) 9.3 - 12.4 fL [facility] LYMPHOCYTES 34 16 - 45 % [facility] LYMPHOCYTE ABSOLUTE 1.62 0.70 - 4.50 K/uL [facility] BASOPHILS 0 0 - 2 % [facility] BASOPHILS ABSOLUTE 0.02 0.00 - 0.20 K/uL [facility] MONOCYTES 11 3 - 13 % [facility] MONOCYTE ABSOLUTE 0.54 0.10 - 1.30 K/uL [facility] NEUTROPHILS 54 45 - 70 % [facility] NEUTROPHIL ABSOLUTE 2.60 1.90 - 7.00 K/uL [facility] EOSINOPHILS 1 0 - 7 % [facility] EOSINOPHIL ABSOLUTE 0.05 0.00 - 0.70 K/uL [facility] Blood specimen (specimen) 07/01/2009 9:26 AM CDT 07/01/2009 9:26 AM CDT us Wallace Anthony MD HEMATOLOGY ORDERABLES Edited [facility] CLIA# [id number] [address] [place] [address] documented in this encounter Visit Diagnoses Diagnosis 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
--- OUTSIDE RECORDS SUMMARY | 2025-01-15 12:20 | XMS_ITS | Encounter Summary ---
Author Organization [facility] Address 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 Gender Identity Not on file Sexual Orientation [...] % INTERFACE SYSTEM 05/04/2005 9:33 AM CDT us Ant Bowling MD HEMATOLOGY ORDERABLES Final Re sult INTERFACE SYSTEM Refer to clinic/hospital department documented in this encounter Visit Diagnoses Diagnosis 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
--- OUTSIDE RECORDS SUMMARY | 2025-01-15 12:20 | XMS_ITS | Encounter Summary ---
Author Organization [employer] [facility] Address 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 Gender Identity Not on file Sexual Orientation [...] CBC WITH DIFFERENTIAL (07/05/2005 4:01 PM CDT) NEUTROPHIL ABSOLUTE 4.42 1.90 - 7.00 K/uL [...] Slight INTERFACE SYSTEM 07/05/2005 4:01 PM CDT us Wallace Anthony MD HEMATOLOGY ORDERABLES Final Result INTERFACE SYSTEM Refer to clinic/hospital department * (ABNORMAL) CBC WITH DIFFERENTIAL (07/05/2005 4:01 PM CDT) WBC 6.5 4.0 - 9.8 K/uL INTERFACE [...] 4:01 PM CDT Wallace Anthony MD HEMATOLOGY ORDERABLES Final Result Performing Organization Address [facility] de Phone Number [...] n increased sensitivity at lower urobilinogen levels. Previously, results were reported in Angela unit(EU)/dL. 1+ results previously reported as 1 EU/dL (normal) will become 2 mg/dL (abnormal). BILIRUBIN UA Negative Negative INTERFA CE SYSTEM BLOOD UA Negative Negative INTERFACE SYSTEM WBC UA 2 0 - 5 /HPF INTERFACE SYSTEM RBC UA 1 0 - 4 /HPF INTERFACE SYSTEM BACTERIA UA 1+(A) None Seen /HPF INTERFACE SYSTEM EPITHELIAL CELLS, URINE 5-10 /HPF INTERFACE SYSTEM 06/09/2005 2:48 PM CDT us Wallace Anthony MD URINE ORDERABLES Final Resul t Performing Organization Address [facility] de Phone Number INTERFACE SYSTEM Refer to clinic/hospital department * BONE MARROW COLLECTION (06/09/2005 2:21 PM CDT) BONE MARROW See Pathology Report INTERFACE SYSTEM 06/09/2005 2:21 PM CDT us Wallace Anthony MD PATHOLOGY/CYTOLOGY ORDERABLE S Final Result Performing Organization Address [facility] Phone Number INTERFACE SYSTEM Refer to clinic/hospital department * TSH REFLEXIVE (06/09/2005 1:23 PM CDT) TSH 0.85 0.27 - 4.20 uU/mL INTERFACE SYSTEM 06/09/2005 1:23 PM CDT us Wallace Anthony MD CHEMISTRY ORDERABLES Final R esult Performing Organization Address [facility] Phone Number INTERFACE SYSTEM Refer to [...] K/uL INTERFACE SYSTEM 06/09/2005 1:23 PM CDT us Wallace Anthony MD HEMATOLOGY ORDERABLES Final Result Performing Organization Address [facility] Phone Number INTERFACE SYSTEM Refer to [...] fL INTERFACE SYSTEM 06/09/2005 1:23 PM CDT us Wallace Anthony MD HEMATOLOGY ORDERABLES Final Result Performing Organization Address [facility] Phone Number INTERFACE SYSTEM Refer to clinic/hospital department * URIC ACID (06/09/2005 1:23 PM CDT) URIC ACID 2.9 2.3 - 6.6 mg/dL INTERFACE SYSTEM 06/09/2005 1:23 PM CDT Wallace Anthony MD CHEMISTRY ORDERABLES Final R esult Performing Organization Address [facility] Phone Number INTERFACE SYSTEM Refer to clinic/hospital department * (ABNORMAL) LACTATE DEHYDROGENASE (06/09/2005 1:23 PM CDT) LD (LACTATE DEHYDROGENASE) 219(H) 135 - 214 U/L INTERFACE SYSTEM 06/09/2005 1:23 PM CDT us Wallace Anthony MD CHEMISTRY ORDERABLES Final R esult Performing Organization Address [facility] de Phone Number [...] PM CDT Wallace Anthony MD CHEMISTRY ORDERABLES Final R esult Performing Organization Address City/[facility]/ZIP Co de Phone Number INTERFACE SYSTEM Refer to clinic/hospital department * BETA 2 MICROGLOBULIN, SERUM (06/09/2005 1:23 PM CDT) BETA 2 MICROGLOBULIN, SERUM 1.71 < OR = 1.85 mg/L INTERFACE SYSTEM Comment: Lab test performed by: [email or web address] [address] MARQUISE LAWSON MD 06/09/2005 1:2 3 PM CDT Wallace Anthony MD CHEMISTRY ORDERABLES Final R esult Performing Organization Address City/[facility] Co de Phone Number INTERFACE SYSTEM Refer to clinic/hospital department documented in this encounter Visit Diagnoses Diagnosis Other malignant lymphomas, unspecified site, extranodal and solid organ sites (CMS/HCC)- Primary Other malignant lymphomas, unspecified site, extranodal and solid organ sites documented in this encounter Care Teams Orthotic/Prosthetic Practitioner Relationship Specialty [place] [address] [place] [address] PCP - General 07/14/04 documented as of this encounter
--- OUTSIDE RECORDS SUMMARY | 2025-01-15 12:20 | XMS_ITS | Encounter Summary ---
Author Organization [facility] Address 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
--- OUTSIDE RECORDS SUMMARY | 2025-01-15 12:20 | XMS_ITS | Encounter Summary ---
Author Organization [facility] Address 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
--- OUTSIDE RECORDS SUMMARY | 2025-01-15 12:21 | XMS_ITS | Encounter Summary ---
Author Organization [facility] Address 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 Gender Identity Not on file Sexual Orientation [...] CDT) SODIUM 140 135 - 145 mmol/L [facility] ALT 19 0 - 31 U/L [facility] ALKALINE PHOSPHATASE 70 35 - 104 U/L [facility] BILIRUBIN TOTAL 0.3 0.2 - 1.0 mg/dL [facility] CO2 25 22 - 30 mmol/L [facility] TOTAL PROTEIN 7.3 6.3 - 8.6 g/dL [facility] POTASSIUM 3.5 3.5 - 4.9 mmol/L [facility] GLUCOSE 105(H) 65 - 99 mg/dL [facility] AST 28 12 - 32 U/L [facility] BUN 17 6 - 20 mg/dL [facility] CALCIUM 9.5 8.6 - 10.2 mg/dL [facility] CHLORIDE 103 96 - 108 mmol/L [facility] ALBUMIN 4.7 3.4 - 4.8 g/dL [facility] CREATININE 0.66 0.51 - 0.95 mg/dL [facility] GFR, >60 >=60 mL/min/1. 7 sq meter [facility] GFR >60 >=60 mL/min/1. 7 sq meter [facility] Comment: Modification of Diet in Renal Disease (MDRD) study formula. Estimated GFR rate interpretative information for both Americans and non- Americans is available on the [facility] Intranet at: [email or web address] Select: Lab Policies and Procedures Select: Reference Ranges - GFR Blood specimen (specimen) 08/13/2008 1:13 PM CDT 08/13/2008 1:13 PM CDT us Wallace Anthony MD CHEMISTRY ORDERABLES Edited INTERFACE SYSTEM Refer to clinic/hospital department [facility] CLIA# [id number] [address] [place] [address] * (ABNORMAL) CBC WITH DIFFERENTIAL (08/13/2008 1:13 PM CDT) RBC 4.21 3.90 - 4.90 M/uL [facility] MCHC 35.7(H) 31.5 - 35.5 % [facility] MCV 89.1 82.0 - 99.0 fL [facility] PLATELETS 309 140 - 350 K/uL [facility] HEMOGLOBIN 13.4 11.8 - 14.8 g/dL [facility] RDW 12.3 11.5 - 14.5 % [facility] WBC 8.1 4.0 - 9.8 K/uL [facility] MCH 31.8 27.2 - 32.6 pg [facility] MPV 8.9(L) 9.3 - 12.4 fL [facility] HEMATOCRIT 37.5 35.5 - 44.0 % [facility] RDW-STDEV 39.9 37.1 - 48.7 fL [facility] EOSINOPHILS 1 0 - 7 % [facility] EOSINOPHIL ABSOLUTE 0.10 0.00 - 0.70 K/uL [facility] LYMPHOCYTES 32 16 - 45 % [facility] LYMPHOCYTE ABSOLUTE 2.59 0.70 - 4.50 K/uL [facility] BASOPHILS 0 0 - 2 % [facility] BASOPHILS ABSOLUTE 0.03 0.00 - 0.20 K/uL [facility] MONOCYTES 12 3 - 13 % [facility] MONOCYTE ABSOLUTE 0.99 0.10 - 1.30 K/uL [facility] NEUTROPHILS 54 45 - 70 % [facility] NEUTROPHIL ABSOLUTE 4.34 1.90 - 7.00 K/uL [facility] Blood specimen (specimen) 08/13/2008 1:13 PM CDT 08/13/2008 1:13 PM CDT us Wallace Anthony MD HEMATOLOGY ORDERABLES Edited INTERFACE SYSTEM Refer to clinic/hospital department [facility] CLIA# [id number] [address] [place] [address] documented in this encounter Visit Diagnoses Diagnosis 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
--- OUTSIDE RECORDS SUMMARY | 2025-01-15 12:21 | XMS_ITS | Encounter Summary ---
Author Organization [facility] Address 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
--- OUTSIDE RECORDS SUMMARY | 2025-01-15 12:21 | XMS_ITS | Encounter Summary ---
Author Organization [facility] Address 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 Gender Identity Not on file Sexual Orientation [...] CDT) GLUCOSE 95 65 - 99 mg/dL [facility] AST 26 12 - 32 U/L [facility] BUN 18 6 - 20 mg/dL [facility] CO2 26 22 - 30 mmol/L [facility] CALCIUM 9.0 8.4 - 10.2 mg/dL [facility] ALBUMIN 4.6 3.4 - 4.8 g/dL [facility] CHLORIDE 103 96 - 108 mmol/L [facility] CREATININE 0.75 0.51 - 0.95 mg/dL [facility] ALT 17 0 - 31 U/L [facility] SODIUM 139 135 - 145 mmol/L [facility] ALKALINE PHOSPHATASE 70 35 - 104 U/L [facility] BILIRUBIN TOTAL 0.2 0.2 - 1.0 mg/dL [facility] POTASSIUM 3.6 3.5 - 4.9 mmol/L [facility] TOTAL PROTEIN 7.0 6.3 - 8.6 g/dL [facility] GFR, >60 >=60 mL/min/1.7 sq meter [facility] GFR >60 >=60 mL/min/1.7 sq meter [facility] Comment: Modification of Diet in Renal Disease (MDRD) study formula. Estimated GFR rate interpretative information for both Americans and non- Americans is available on the [facility] Intranet at: [email or web address] Select: Lab Policies and Procedures Select: Reference Ranges - GFR Blood specimen (specimen) 04/16/2008 1:55 PM CDT 04/16/2008 2:11 PM CDT us Wallace Anthony MD CHEMISTRY ORDERABLES Edited [facility] CLIA# [id number] [address] [place] [address] * (ABNORMAL) CBC WITH DIFFERENTIAL (04/16/2008 1:55 PM CDT) HEMOGLOBIN 12.9 11.8 - 14.8 g/dL [facility] RDW 12.2 11.5 - 14.5 % [facility] WBC 6.9 4.0 - 9.8 K/uL [facility] MCH 32.8(H) 27.2 - 32.6 pg [facility] MPV 9.2(L) 9.3 - 12.4 fL [facility] HEMATOCRIT 36.5 35.5 - 44.0 % [facility] RDW-STDEV 40.2 37.1 - 48.7 fL [facility] RBC 3.93 3.90 - 4.90 M/uL [facility] MCHC 35.3 31.5 - 35.5 % [facility] MCV 92.9 82.0 - 99.0 fL [facility] PLATELETS 326 140 - 350 K/uL [facility] BASOPHILS 0 0 - 2 % [facility] LYMPHOCYTES 27 16 - 45 % [facility] BASOPHILS ABSOLUTE 0.02 0.00 - 0.20 K/uL [facility] MONOCYTE ABSOLUTE 0.81 0.10 - 1.30 K/uL [facility] NEUTROPHIL ABSOLUTE 4.14 1.90 - 7.00 K/uL [facility] MONOCYTES 12 3 - 13 % [facility] EOSINOPHILS 1 0 - 7 % [facility] EOSINOPHIL ABSOLUTE 0.05 0.00 - 0.70 K/uL [facility] NEUTROPHILS 60 45 - 70 % [facility] LYMPHOCYTE ABSOLUTE 1.89 0.70 - 4.50 K/uL [facility] Blood specimen (specimen) 04/16/2008 1:55 PM CDT 04/16/2008 2:15 PM CDT us Wallace Anthony MD HEMATOLOGY ORDERABLES Edited INTERFACE SYSTEM Refer to clinic/hospital department [facility] CLIA# [id number] [address] [place] [address] documented in this encounter Visit Diagnoses Diagnosis 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
--- OUTSIDE RECORDS SUMMARY | 2025-01-15 12:21 | XMS_ITS | Encounter Summary ---
Author Organization [email or web address] Address [address] [place] [address] Care Team Providers Care Acoustical Tile Patternmaker Name Role Phone Liberty Hernandez MD Primary Care Provider [phone] Encounter Details Date Type Department Care Team (Late st Contact Info) Description 05/04/2005 Outpatient Historical [facility] 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
--- OUTSIDE RECORDS SUMMARY | 2025-01-15 12:21 | XMS_ITS | Encounter Summary ---
Author Organization [facility] Address 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
--- OUTSIDE RECORDS SUMMARY | 2025-01-15 12:21 | XMS_ITS | Data Portability ---
Author Organization [facility] OFFICE Address [address] [place] [address] Care Team Providers Care Historic Sites Registrar Name Role Phone AMBER MAC Primary Care Provider Assessment Encounter Date Assessment Date Assessment LastModified [...] current medications, and medical follow-up as noted. [email or web address] Not available 03/02/2022 12:02:09 06/15/2022 06/15/2022 Discussed with patient findings, diagnosis, and prognosis. Discussed evaluation and treatment options including risks and benefits with patient, and patient expressed understanding. The following interventions were recommended: heart healthy low-fat, low-sodium diet, continue regular exercise, maintain appropriate weight, continue current medications, and medical follow-up as noted. [email or web address] Not available 06/15/2022 12:40:38 12/14/2022 12/14/2022 Discussed with patient findings, diagnosis, and prognosis. Discussed evaluation and treatment options including risks and benefits with patient, and patient expressed understanding. The following interventions were recommended: heart healthy low-fat, low-sodium diet, continue regular exercise, maintain appropriate weight, continue current medications, and medical follow-up as noted. Not available 12/14/2022 13:43:31 Plan of Treatment Reminders Order Date Submit Date Provider Last Modified By Organization Details Last Modified Time Details Appointments None recorded. Lab None recorded. Referral None recorded. Procedures None recorded. Surgeries None recorded. Imaging None recorded. Medication Orders lisinopril 10 mg tablet 2021 022 [facility] [id number], [address], 12:50:09 icosapent ethyl 1 gram capsule 2021 022 [facility] [address], [address], 12:40:31 Zetia 10 mg tablet 2020 021 [email or web address] [facility] [address], [address], 12:19:54 Patient TargetsNo targets recorded. Patient Instructions Encounter Date Encounter Id Patient Instructions Last Modified By Organization Details Last Modified Time 08/25/2021 [id number] elevated blood pressure: care instructions [email or web address] Not available 08/25/2021 12:53:24 high cholesterol : care instructions [email or web address] Not available 08/25/2021 12:53:24 low sodium diet (2,000 milligram): care instructions Not available 08/25/2021 12:53:24 11/03/2021 [id number] elevated blood pressure: care instructions [email or web address] Not available 11/03/2021 13:06:00 high cholesterol : care instructions [email or web address] Not available 11/03/2021 13:06:00 low sodium diet (2,000 milligram): care instructions Not available 11/03/2021 13:06:00 03/02/2022 [id number] elevated blood pressure: care instructions [email or web address] Not available 03/02/2022 12:27:40 high cholesterol : care instructions [email or web address] Not available 03/02/2022 12:27:40 low sodium diet (2,000 milligram): care instructions [email or web address] Not available 03/02/2022 12:27:40 06/15/2022 [id number] elevated blood pressure: care instructions [email or web address] Not available 06/15/2022 12:50:07 high cholesterol : care instructions [email or web address] Not available 06/15/2022 12:50:07 low sodium diet (2,000 milligram): care instructions Not available 06/15/2022 12:50:07 12/14/2022 [id number] elevated blood pressure: care instructions [email or web address] Not available 12/14/2022 13:47:20 high cholesterol : care instructions [email or web address] Not available 12/14/2022 13:47:20 low sodium diet (2,000 milligram): care instructions [email or web address] Not available 12/14/2022 13:47:20 Reason for Referral None Reported. Results Created Date Observation Date Name Description Value Unit Range Abnormal Flag Note LastModifiedBy Organization Detail LastModifiedTime 08/09/2008/09/2021 , echoc ardio gram No observ ation record ed. [facility] [address] [place], [place], [address], 09/06/2021 16:40:07 08/26/2008/09/2021 , echoc ardio gram [...] Details Recorded Time Tricuspid valve regurgitat ion 948384618 Active 2020 Ayaan mooney [place] - [facility] 1 16:49:13 Dyspnea on exertion 01849874 Active 2021 Ayaan mooney [place] - [facility] 2 12:09:22 Coronary arterioscl erosis 11158052 Active 2017 s/p Had CABG x 3 done in ([place] to anterior desending coronary artery, left radial artery to obtuse marginal coronary artery, reverse saphenous vein graft to second diagonal coronary artery. Radha mooney [place] - [facility] 8 17:29:49 Hyperlipid emia 14631147 Active 2017 Keena mooney [place] - [facility] 8 03:34:50 Gastroesop hageal reflux disease 085182901 Active 2017 Keena mooney [place] - [facility] 8 03:34:57 Arthritis 1942040 Active 2017 DONALD [place] - [facility] 8 03:35:18 High troponin I level 501172175 Active 2017 Keena mooney, [place] - [facility] 8 03:36:26 Migraine 88942148 Active 2017 Radha Singhdell [place], [place] - [facility] 8 17:15:42 Osteoarthr itis 334491673 Active 2017 [place] [facility] 8 17:16:08 Malignant neoplastic disease 177468368 Active 2017 Darianadorie Lebron [facility], [place] - [facility] 8 13:41:51 Cramp in lower limb 521620537 Active 2017 Dariana Lebron [facility], [place] - [facility] 8 13:42:01 Tight chest 10970230 Active 2017 Dariana Lebron [place], [place] - [facility] 8 13:42:11 Increased blood pressure 95941943 Active 2017 [place] [facility] 8 14:14:34 On examinatio n - carotid bruit Active 2017 Ayaan Wiggins [facility] 8 12:25:38 Peripheral arterial occlusive disease 260350688 [facility] 8 12:59:59 Acute non-ST segment elevation myocardial infarction 509399045 Active 2017 Garcia Samanthadell [facility] 8 13:00:32 Problem Notes None recorded. Procedures Surgical History Date Name Laterality Status Provider Name and Address Organization Details Recorded Time Cabg vein three completed Garcia Samanthadell [facility] 03/12/2018 17:28:10 Imaging Results Imaging Date Name Status LastModified by Organization Details LastModified Time 08/09/2021 US, echocardiogram completed [facility] [address] [place], [place], [address], 09/06/2021 16:40:07 08/09/2021 US, echocardiogram completed [email or web address] [...] Updated DateTime 1 160.02 cm 22.7 kg/m2 98861.8 2 g 67 /min 98 % 98 % 118 mm[Hg] 70 mm[Hg] B[facility] 1 12:02:33 Date Recorded Body height Body mass index (BMI) Body weight Heart rate Oxygen saturation Oxygen saturation in Arterial blood by Pulse oximetry Systolic blood pressure Diastolic blood pressure Provider Name and Address Organization Details Last Updated DateTime 1 160.02 cm 23.6 kg/m2 42114.7 9 g 78 /min 97 % 97 % 109 mm[Hg] 71 mm[Hg] Bety Barrientos [facility] 1 12:01:57 Date Recorded Body height Body mass index (BMI) Body weight Heart rate Oxygen saturation Oxygen saturation in Arterial blood by Pulse oximetry Systolic blood pressure Diastolic blood pressure Provider Name and Address Organization Details Last Updated DateTime 2 160.02 cm 22 kg/m2 87189.4 5 g 71 /min 98 % 98 % 110 mm[Hg] 72 mm[Hg] Julio César Butts [facility] 2 11:51:39 Date Recorded Body height Body mass index (BMI) Body weight Heart rate Respiratory rate Oxygen saturation Oxygen saturation in Arterial blood by Pulse oximetry Systolic blood pressure Diastolic blood pressure Provider Name and Address Organization Details Last Updated DateTime 2 160.02 cm 21.4 kg/m2 39875.6 8 g 78 /min 16 /min 93 % 93 % 116 mm[Hg] 68 mm[Hg] Julio César Butts [facility] 2 11:54:31 Date Recorded Body height Provider Name an d Address Organization Details Last Updated DateTime 12/14/2022 160.02 cm Julio César Butts [facility] 12/14/2022 12:47:59 Date Recorded Heart rate Oxygen saturation Oxygen saturation in Arterial blood by Pulse oximetry Body mass index (BMI) Body weight Systolic blood pressure Diastolic blood pressure Provider Name and Address Organization Details Last Updated DateTime 3 71 /min 94 % 94 % 22.1 kg/m2 44603.0 5 g 116 mm[Hg] 78 mm[Hg] Ayaan Wiggins [facility] 3 13:41:02 Social History Question Answer Notes LastModified by [employer] Details LastModified Time Tobacco Smoking Status Former Smoker Not Available [facility] 09/08/2020 03:30:40 What Is Your Level Of Alcohol Consumption? Occasional [id number] Information not available 09/08/2020 What Is Your Level Of Caffeine Consumption? None [id number] Information not available 09/08/2020 How Much Tobacco Do You Chew? None [id number] Information not available 09/08/2020 What Type Of Diet Are You Following? REGULAR [id number] Information not available 09/08/2020 Which Illicit Or Recreational Drugs Have You Used? No [id number] Information not available 09/08/2020 Do You Or Have You Ever Used E-cigarettes Or Vape? Never Used Electronic Cigarettes [id number] Information not available 09/08/2020 Live Alone Or With Others? With Others [email or web address] Information not available 03/14/2018 Marital Status Informatio n not available 03/14/2018 What Was The Date Of Your Most Recent Tobacco Screening? 03/06/2019 [id number] Information not available 09/08/2020 How Many Children Do You Have? 2 [id number] Information not available 09/08/2020 Do You Or Have You Ever Used Smokeless Tobacco? Former Smokeless Tobacco User [id number] Information not available 09/08/2020 How Much Tobacco Do You Smoke? No [id number] Information not available 09/08/2020 General Stress Level Low [email or web address] Information not available 03/14/2018 How Many Years Have You Smoked Tobacco? 6 Quit 1977 [id number] Information not available 09/08/2020 Sex: Unknown Functional Status Question Answer Note LastModified by [employer] Details LastModified Time What is your exercise level? Occasional [id number] Information not available 09/08/2020 Mental Status None recorded. Family History Relationship Description Onset Age of this Age Resolved Age Notes LastModified by Organization Details LastModified Time Sister Coronary artery bypass graft [email or web address] Not available 05/2018 17:15:10 Sister Coronary arterioscler osis dece ed hmesto Not available 03/12/2018 17:17:20 Sister Amyotrophic lateral sclerosis [email or web address] Not available 2017 17:16:34 Mother Myocardial infarction 59 dece ed hmesto Not available 03/12/2018 17:17:48 Mother Congestive heart failure dece ed hmesto Not available 03/12/2018 17:18:28 Mother Diabetes mellitus dece ed hmesto Not available 03/12/2018 17:18:51 Mother Heart disease [email or web address] Not available 2017 13:37:34 Father Cerebrovascu lar accident dece ed hmesto Not available 03/12/2018 17:18:01 Maternal Grandmother Heart disease [email or web address] Not available 2017 13:37:34 Maternal Aunt Hypertensive disorder [email or web address] Not available 2017 13:37:59 Medical History Condition Response Coronary Artery Disease Y Cancer Y Hyperlipidemia Y GERD/Reflux Y Gynecological HistoryNo gynecological history recorded. Obstetrics History GPAL:G 0 P 0 0 0 0 Past Encounters Encounter ID Performer Location Encounter Start Date Encounter Closed Date Diagnosis/Indication Diagnosis SNOMED-CT Code Diagnosis ICD10 Code Diagnosis Note [id number] Ayaan Wiggins [place] OFFICE [address] [place] [address] 03/14/2018 12:39:12 03/14/2018 15:44:06 Coronary arteriosclerosis 01043962 I25.10 s/p CABG x 3v., 02/05/18 done in ([place] to anterior desending coronary artery, left radial artery to obtuse marginal coronary artery, reverse saphenous vein graft to second diagonal coronary artery. Continue ASA, statin. Was on metoprolol tartrate 50 mg bid but was decreased to 25 mg bid due to dizziness mid February 2018. Hyperlipidemia 39978577 E78.5 LDL 48 01/2018. Continue statin. Needs to keep LDL less than 70, and HDL more than 40. Acute non- ST segment elevation myocardial infarction 880375485 I21.4 On 02/02/18 prior to CABG. Continue ASA and statin. Increased blood pressure 94015446 R03.0 Blood pressure is elevated today, but this is only one reading, will keep close follow up, and consider medication change if blood pressure is still elevated next visit. BP diary. [id number] Marc Pabon MD [place] OFFICE [address] [place] [address] 04/03/2018 13:48:49 04/04/2018 11:06:13 Coronary arteriosclerosis 25032778 I25.10 s/p CABG x 3v., 02/05/18 done in ([place] to anterior decending coronary artery, left radial artery to obtuse marginal coronary artery, reverse saphenous vein graft to second diagonal coronary artery. Continue ASA, statin. Was on metoprolol tartrate 50 mg bid but was decreased to 25 mg bid due to dizziness mid February 2018. Hyperlipidemia 85121720 E78.5 LDL 48 01/2018. Continue statin. Needs to keep LDL less than 70, and HDL more than 40.Will check CPK Acute non- ST segment elevation myocardial infarction 739191449 I21.4 On 02/02/18 prior to CABG. Continue ASA and statin. Increased blood pressure 70098534 R03.0 Well controlled . Peripheral arterial occlusive disease 244058072 I73.9 with claudicati onsWill get arterial doppler, to evaluate severity of peripheral vascular disease [id number] Ayaan Wiggins [place] OFF[facility] [address] [place] [address] 04/18/2018 11:05:26 04/19/2018 11:39:30 Edema 645225539 R60.9 Reports intermitte nt swelling. Absent on exam. Coronary arteriosclerosis 88601077 I25.10 s/p CABG x 3v., 02/05/18 ([place] to anterior decending coronary artery, left radial artery to obtuse marginal coronary artery, reverse saphenous vein graft to second diagonal coronary artery). Continue ASA, statin. Was on metoprolol tartrate 50 mg bid but was decreased to 25 mg bid due to dizziness mid February 2018. Hyperlipidemia 75904986 E78.5 LDL 48 01/2018. Needs to keep LDL less than 70, and HDL more than 40. CPK 65 on 04/03/18. Having bilateral resting leg/calf cramping, will switch Atorvastat in 40 mg to Livalo 2 mg qd 04/18/18.CM P/FLP/CPK in 1 mo. Acute non- ST segment elevation myocardial infarction 197632917 I21.4 On 02/02/18 prior to CABG. Continue ASA and statin. Increased blood pressure 32723826 R03.0 Patient's blood pressure is {{well-con trolled so mewhat well-contr olled* not well-contr olled}} on present medical therapy. Patient is {{tolerati ng, without difficulty ,* having side effects with}} the current medication s. I have {{not made made the following* }} changes to the current regimen. {{ Patient is advised to maintain a blood pressure diary.*}} Patient was advised to eat a low-sodium diet (2 grams sodium or less daily). Stopped isosorbide dinitrate which she was taking once daily in PM and replaced with isosorbide mononitrat e 30 mg qd 04/18/18. Peripheral arterial occlusive disease 849750687 I73.9 With resolved claudicati on. Had ARTERIAL DOPPLER on 04/10/18 with normal ankle branchial index. No significan t lower extremity peripheral arterial disease detected. Cramp in lower limb 4499 22395 R25.2 cramping pains. Had ARTERIAL DOPPLER on 04/10/18 with normal ankle branchial index. No significan t lower extremity peripheral arterial disease detected. Will try switching statins, Atorvastat in to Livalo. On examina tion - carotid bruit 480303475 R09.89 [place]btain [place]. [id number] Ayaan Duvallhman [place] OFFICE [address] [place] [address] 05/16/2018 14:00:36 05/18/2018 10:46:30 Coronary arteriosclerosis 55606050 I25.10 s/p CABG x 3v., 02/05/18 ([place] to anterior decending coronary artery, left radial artery to obtuse marginal coronary artery, reverse saphenous vein graft to second diagonal coronary artery). Continue ASA, statin. Was on metoprolol tartrate 50 mg bid but was decreased to 25 mg bid due to dizziness mid February 2018. Hyperlipidemia 01067296 E78.5 LDL 48 01/2018. Needs to keep LDL less than 70, and HDL more than 40. CPK 65 on 04/03/18. Having bilateral resting leg/calf cramping, switched Atorvastat in 40 mg to Livalo 2 mg qd. Had LDL 108 05/11/18. Increased Livalo to 4 mg qd 05/16/18. Obtain FLP 4 wks. Increased blood pressure 40161015 R03.0 Patient's blood pressure is {{well-con trolled* s omewhat well-contr olled not well-contr olled}} on present medical therapy. Patient is {{tolerati ng, without difficulty ,* having side effects with}} the current medication s. I have {{not made* made the following} } changes to the current regimen. {{ Patient is advised to maintain a blood pressure diary.*}} Patient was advised to eat a low-sodium diet (2 grams sodium or less daily). Stopped isosorbide dinitrate which she was taking once daily in PM and replaced with isosorbide mononitrat e 30 mg qd 04/18/18. Cramp in lower limb 4499 58901 R25.2 Cramping pains, improving. Had ARTERIAL DOPPLER on 04/10/18 with normal ankle branchial index. No significan t lower extremity peripheral arterial disease detected. Will try switching statins, Atorvastat in to Livalo; with less cramping now. Edema 523535016 R60.9 Reports intermitte nt swelling. Absent on exam. Acute non- ST segment elevation myocardial infarction 083268991 I21.4 On 02/02/18 prior to CABG. Continue ASA and statin. Peripheral arterial occlusive disease 594331488 I73.9 With resolved claudicati on. Had ARTERIAL DOPPLER on 04/10/18 with normal ankle branchial index. No significan t lower extremity peripheral arterial disease detected. On examina tion - carotid bruit 168487359 R09.89 Right carotid bruit. Had carotid U/S 05/03/18: mild right ICA stenosis with <50% stenosis and very mild <15% diameter stenosis on left ICA. F/u 12 mo. [id number] Ayaan Wiggins [place] [facility] [address] [place] [address] 06/20/2018 12:18:32 11/09/2018 10:31:48 Coronary arteriosclerosis 99808299 I25.10 s/p CABG x 3v., 02/05/18 ([place] to anterior decending coronary artery, left radial artery to obtuse marginal coronary artery, reverse saphenous vein graft to second diagonal coronary artery). Continue ASA, statin. Was on metoprolol tartrate 50 mg bid but was decreased to 25 mg bid due to dizziness mid February 2018. Hyperlipidemia 14976559 E78.5 LDL 48 01/2018. Needs to keep LDL less than 70, and HDL more than 40. CPK 65 on 04/03/18. Having bilateral resting leg/calf cramping, switched Atorvastat in 40 mg to Livalo 2 mg qd. Had LDL 108 05/11/18. Increased Livalo to 4 mg qd 05/16/18. Reports leg cramps only after increasing dose to Livalo 2 mg qd 06/20/18, but LDL was not well-contr olled on Livalo 2 mg dose at 108 and on 4 mg dose LDL 102. Also intolerant of atorvastat in with leg cramping. CK normal. Began rosuvastat in 10 mg qHS 06/20/18. Obtain FLP 4 wks. Began Repatha 140 mg SC q 2wks 06/20/18. Needs to keep LDL less than 70, and HDL more than 40 given CAD s/p CABG, and has been intolerant of statins at required doses. For increased TG, began fish oil 2 gm bid 06/20/18. Increased blood pressure 06970455 R03.0 Patient's blood pressure is {{well-con trolled* s omewhat well-contr olled not well-contr olled}} on present medical therapy. Patient is {{tolerati ng, without difficulty ,* having side effects with}} the current medication s. I have {{not made* made the following} } changes to the current regimen. {{ Patient is advised to maintain a blood pressure diary.*}} Patient was advised to eat a low-sodium diet (2 grams sodium or less daily). Stopped isosorbide dinitrate which she was taking once daily in PM and replaced with isosorbide mononitrat e 30 mg qd 04/18/18. Cramp in lower limb 4499 25103 R25.2 Cramping pains, improving. Had ARTERIAL DOPPLER on 04/10/18 with normal ankle branchial index. No significan t lower extremity peripheral arterial disease detected. Will try switching statins, Atorvastat in to Livalo to rosuvastat in. Edema 447893550 R60.9 Reports intermitte nt swelling. Absent on exam. Acute non- ST segment elevation myocardial infarction 765643486 I21.4 On 02/02/18 prior to CABG. Continue ASA and statin. Peripheral arterial occlusive disease 492297830 I73.9 With resolved claudicati on. Had ARTERIAL DOPPLER on 04/10/18 with normal ankle branchial index. No significan t lower extremity peripheral arterial disease detected. On examina tion - carotid bruit 515213168 R09.89 Right carotid bruit. Had carotid U/S 05/03/18: mild right ICA stenosis with <50% stenosis and very mild <15% diameter stenosis on left ICA. F/u 12 mo. [id number] Ayaan [facility] OFFICE [address] [place] [address] 08/01/2018 12:05:46 08/01/2018 13:59:36 Coronary arteriosclerosis 09112892 I25.10 s/p CABG x 3v., 02/05/18 ([place] to anterior decending coronary artery, left radial artery to obtuse marginal coronary artery, reverse saphenous vein graft to second diagonal coronary artery). Continue ASA, statin. Was on metoprolol tartrate 50 mg bid but was decreased to 25 mg bid due to dizziness mid February 2018. Changed to metoprolol succinate 50 mg qd 08/01/18. Hyperlipidemia 20588724 E78.5 LDL 48 01/2018. Needs to keep LDL less than 70, and HDL more than 40. CPK 65 on 04/03/18. Having bilateral resting leg/calf cramping, switched Atorvastat in 40 mg to Livalo 2 mg qd. Had LDL 108 05/11/18. Increased Livalo to 4 mg qd 05/16/18. Reports leg cramps only after increasing dose to Livalo 2 mg qd 06/20/18, but LDL was not well-contr olled on Livalo 2 mg dose at 108 and on 4 mg dose LDL 102. Also intolerant of atorvastat in with leg cramping. CK normal. Began rosuvastat in 10 mg qHS 06/20/18. Obtain FLP 4 wks. 07/25/18 TC: LDL: 89, CPK 117 normal. Needs to keep LDL less than 70, and HDL more than 40. Began Repatha 140 mg SC q 2wks 06/20/18. Needs to keep LDL less than 70, and HDL more than 40 given CAD s/p CABG, and has been intolerant of statins at required doses. For increased TG, began fish oil 2 gm bid 06/20/18. Increased rosuvastat in to 20 mg qHS 08/01/18. Has mild occasional muscle aches on 10 mg with normal CPK.Obtain FLP 1 mo. Increased blood pressure 11511474 R03.0 Patient's blood pressure is {{well-con trolled* s omewhat well-contr olled not well-contr olled}} on present medical therapy. Patient is {{tolerati ng, without difficulty ,* having side effects with}} the current medication s. I have {{not made* made the following} } changes to the current regimen. {{ Patient is advised to maintain a blood pressure diary.*}} Patient was advised to eat a low-sodium diet (2 grams sodium or less daily). Stopped isosorbide dinitrate which she was taking once daily in PM and replaced with isosorbide mononitrat e 30 mg qd 04/18/18. Cramp in lower limb 4499 54272 R25.2 Cramping pains, improving. Had ARTERIAL DOPPLER on 04/10/18 with normal ankle branchial index. No significan t lower extremity peripheral arterial disease detected. Will try switching statins, Atorvastat in to Livalo to rosuvastat in. Edema 791587551 R60.9 Reports intermitte nt swelling. Absent on exam. Acute non- ST segment elevation myocardial infarction 722955260 I21.4 On 02/02/18 prior to CABG. Continue ASA and statin. Peripheral arterial occlusive disease 370399668 I73.9 With resolved claudicati on. Had ARTERIAL DOPPLER on 04/10/18 with normal ankle branchial index. No significan t lower extremity peripheral arterial disease detected. On examina tion - carotid bruit 943238593 R09.89 Right carotid bruit. Had carotid U/S 05/03/18: mild right ICA stenosis with <50% stenosis and very mild <15% diameter stenosis on left ICA. F/u 12 mo. [id number] Ayaan Wiggins [place] [facility] [address] [place] [address] 09/05/2018 11:58:44 09/05/2018 13:15:17 Coronary arteriosclerosis 46768180 I25.10 s/p CABG x 3v., 02/05/18 ([place] to anterior decending coronary artery, left radial artery to obtuse marginal coronary artery, reverse saphenous vein graft to second diagonal coronary artery). Continue ASA, statin. Was on metoprolol tartrate 50 mg bid but was decreased to 25 mg bid due to dizziness mid February 2018. Changed to metoprolol succinate 50 mg qd 08/01/18. Hyperlipidemia 11976439 E78.5 LDL 48 01/2018. Needs to keep LDL less than 70, and HDL more than 40. CPK 65 on 04/03/18. Having bilateral resting leg/calf cramping, switched Atorvastat in 40 mg to Livalo 2 mg qd. Had LDL 108 05/11/18. Increased Livalo to 4 mg qd 05/16/18. Reports leg cramps only after increasing dose to Livalo 2 mg qd 06/20/18, but LDL was not well-contr olled on Livalo 2 mg dose at 108 and on 4 mg dose LDL 102. Also intolerant of atorvastat in with leg cramping. CK normal. Began rosuvastat in 10 mg qHS 06/20/18. Obtain FLP 4 wks. 07/25/18 TC: LDL: 89, CPK 117 normal. Needs to keep LDL less than 70, and HDL more than 40. Began Repatha 140 mg SC q 2wks 06/20/18. Needs to keep LDL less than 70, and HDL more than 40 given CAD s/p CABG, and has been intolerant of statins at required doses. For increased TG, began fish oil 2 gm bid 06/20/18. Increased rosuvastat in to 20 mg qHS 08/01/18. Has mild occasional muscle aches on 10 mg with normal CPK, worse with increase to 20 mg dose. Had 08/29/18: TC 179 ,TG 112 , HDL 63, LDL 94, CK 132 normal. Normal K and Mg. Returned to Crestor 10 mg qHS 09/05/18 as that is maximal tolerable dose for patient. Patient has been unable to start Repatha due to insurance approval still pending. Increased blood pressure [id number] R03.0 Patient's blood pressure is {{well-con trolled* s omewhat well-contr olled not well-contr olled}} on present medical therapy. Patient is {{tolerati ng, without difficulty ,* having side effects with}} the current medication s. I have {{not made* made the following} } changes to the current regimen. {{ Patient is advised to maintain a blood pressure diary.*}} Patient was advised to eat a low-sodium diet (2 grams sodium or less daily). Stopped isosorbide dinitrate which she was taking once daily in PM and replaced with isosorbide mononitrat e 30 mg qd 04/18/18. Cramp in lower limb 4499 [id number] R25.2 Cramping pains, recurrent. Had ARTERIAL DOPPLER on 04/10/18 with normal ankle branchial index. No significan t lower extremity peripheral arterial disease detected. Will try switching statins, Atorvastat in to Livalo to rosuvastat in, then back to 10 mg Crestor 09/05/18. 08/29/18: TC 179 ,TG 112 , HDL 63, LDL 94, CK 132 normal. Normal K and Mg. Edema [id number] R60.9 Reports intermitte nt swelling. Absent on exam. Acute non- ST segment elevation myocardial infarction [id number] I21.4 On 02/02/18 prior to CABG. Continue ASA and statin. Peripheral arterial occlusive disease [id number] I73.9 With resolved claudicati on. Had ARTERIAL DOPPLER on 04/10/18 with normal ankle branchial index. No significan t lower extremity peripheral arterial disease detected. On examina tion - carotid bruit [id number] R09.89 Right carotid bruit. Had carotid U/S 05/03/18: mild right ICA stenosis with <50% stenosis and very mild <15% diameter stenosis on left ICA. F/u 12 mo. Needs to keep LDL less than 70, and HDL more than 40. [id number] Ayaan Wiggins [place] OFFICE [facility] [place] [address] 10/24/2018 14:15:50 11/02/2018 13:02:39 Coronary arteriosclerosis [id number] I25.10 s/p CABG x 3v., 02/05/18 (ANDREW to anterior decending coronary artery, left radial artery to obtuse marginal coronary artery, reverse saphenous vein graft to second diagonal coronary artery). Continue ASA, statin. Was on metoprolol tartrate 50 mg bid but was decreased to 25 mg bid due to dizziness mid February 2018. Changed to metoprolol succinate 50 mg qd 08/01/18. Hyperlipidemia [id number] E78.5 LDL 48 01/2018. Needs to keep LDL less than 70, and HDL more than 40. CPK 65 on 04/03/18. Having bilateral resting leg/calf cramping, switched Atorvastat in 40 mg to Livalo 2 mg qd. Had LDL 108 05/11/18. Increased Livalo to 4 mg qd 05/16/18. Reports leg cramps only after increasing dose to Livalo 2 mg qd 06/20/18, but LDL was not well-contr olled on Livalo 2 mg dose at 108 and on 4 mg dose LDL 102. Also intolerant of atorvastat in with leg cramping. CK normal. Began rosuvastat in 10 mg qHS 06/20/18. Obtain FLP 4 wks. 07/25/18 TC: LDL: 89, CPK 117 normal. Needs to keep LDL less than 70, and HDL more than 40. Began Repatha 140 mg SC q 2wks 06/20/18. Needs to keep LDL less than 70, and HDL more than 40 given CAD s/p CABG, and has been intolerant of statins at required doses. For increased TG, began fish oil 2 gm bid 06/20/18. Increased rosuvastat in to 20 mg qHS 08/01/18. Has mild occasional muscle aches on 10 mg with normal CPK, worse with increase to 20 mg dose. Had 08/29/18: TC 179 ,TG 112 , HDL 63, LDL 94, CK 132 normal, while on rosuvastat in 20 mg . Normal K and Mg. Returned to Crestor 10 mg qHS 09/05/18 as that is maximal tolerable dose for patient, but patient is not at goal for severe CAD and moderate carotid artery stenosis. Patient has been unable to start Repatha due to insurance approval still pending. Increased blood pressure [id number] R03.0 Patient's blood pressure is {{well-con trolled* s omewhat well-contr olled not well-contr olled}} on present medical therapy. Patient is {{tolerati ng, without difficulty ,* having side effects with}} the current medication s. I have {{not made* made the following} } changes to the current regimen. {{ Patient is advised to maintain a blood pressure diary.*}} Patient was advised to eat a low-sodium diet (2 grams sodium or less daily). Stopped isosorbide dinitrate which she was taking once daily in PM and replaced with isosorbide mononitrat e 30 mg qd 04/18/18. Cramp in lower limb 4499 [id number] R25.2 Cramping pains, recurrent, improving. Had ARTERIAL DOPPLER on 04/10/18 with normal ankle branchial index. No significan t lower extremity peripheral arterial disease detected. Tried switching statins, Atorvastat in to Livalo to rosuvastat in, then back to 10 mg Crestor 09/05/18. 08/29/18: TC 179 ,TG 112 , HDL 63, LDL 94, CK 132 normal. Normal K and Mg. Edema [id number] R60.9 Reports intermitte nt swelling. Minimal on exam. Acute non- ST segment elevation myocardial infarction [id number] I21.4 On 02/02/18 prior to CABG. Continue ASA and statin. Peripheral arterial occlusive disease 103822429 I73.9 With resolved claudicati on. Had ARTERIAL DOPPLER on 04/10/18 with normal ankle branchial index. No significan t lower extremity peripheral arterial disease detected. On examina tion - carotid bruit [id number] R09.89 Right carotid bruit. Had carotid U/S 05/03/18: mild right ICA stenosis with <50% stenosis and very mild <15% diameter stenosis on left ICA. F/u 12 mo 04/2019. Needs to keep LDL less than 70, and HDL more than 40. [id number] Ayaan Wiggins [place] OFFICE [address] [place] [address] 01/21/2019 15:45:03 01/21/2019 17:49:00 Coronary arteriosclerosis [id number] I25.10 s/p CABG x 3v., 02/05/18 (ANDREW to anterior decending coronary artery, left radial artery to obtuse marginal coronary artery, reverse saphenous vein graft to second diagonal coronary artery). Continue ASA, statin. Was on metoprolol tartrate 50 mg bid but was decreased to 25 mg bid due to dizziness mid February 2018. Changed to metoprolol succinate 50 mg qd 08/01/18. Hyperlipidemia [id number] E78.5 LDL 48 01/2018. Needs to keep LDL less than 70, and HDL more than 40. CPK 65 on 04/03/18. Having bilateral resting leg/calf cramping, switched Atorvastat in 40 mg to Livalo 2 mg qd. Had LDL 108 05/11/18. Increased Livalo to 4 mg qd 05/16/18. Reports leg cramps only after increasing dose to Livalo 2 mg qd 06/20/18, but LDL was not well-contr olled on Livalo 2 mg dose at 108 and on 4 mg dose LDL 102. Also intolerant of atorvastat in with leg cramping. CK normal. Began rosuvastat in 10 mg qHS 06/20/18. Obtain FLP 4 wks. 07/25/18 TC: LDL: 89, CPK 117 normal. Needs to keep LDL less than 70, and HDL more than 40. Began Repatha 140 mg SC q 2wks 06/20/18. Needs to keep LDL less than 70, and HDL more than 40 given CAD s/p CABG, and has been intolerant of statins at required doses. For increased TG, began fish oil 2 gm bid 06/20/18. Increased rosuvastat in to 20 mg qHS 08/01/18. Has mild occasional muscle aches on 10 mg with normal CPK, worse with increase to 20 mg dose. Had 08/29/18: TC 179 ,TG 112 , HDL 63, LDL 94, CK 132 normal, while on rosuvastat in 20 mg . Normal K and Mg. Returned to Crestor 10 mg qHS 09/05/18 as that is maximal tolerable dose for patient, but patient is not at goal for severe CAD and moderate carotid artery stenosis. Patient has been unable to start Repatha due to insurance approval still pending. Had 01/09/19: TC 242 ,TG 229 ,HDL 51 ,LDL 145, while on rosuvastat in 10 mg, her maximally tolerated dose. Needs Repatha to achieve LDL <70. Increased blood pressure [id number] R03.0 Patient's blood pressure is {{well-con trolled so mewhat well-contr olled* not well-contr olled}} on present medical therapy. Patient is {{tolerati ng, without difficulty ,* having side effects with}} the current medication s. I have {{not made* made the following} } changes to the current regimen. {{ Patient is advised to maintain a blood pressure diary.*}} Patient was advised to eat a low-sodium diet (2 grams sodium or less daily). Stopped isosorbide dinitrate which she was taking once daily in PM and replaced with isosorbide mononitrat e 30 mg qd 04/18/18. Cramp in lower limb 4499 83619 R25.2 Cramping pains, recurrent, improving. Had ARTERIAL DOPPLER on 04/10/18 with normal ankle branchial index. No significan t lower extremity peripheral arterial disease detected. Tried switching statins, Atorvastat in to Livalo to rosuvastat in, then back to 10 mg Crestor 09/05/18. 08/29/18: TC 179 ,TG 112 , HDL 63, LDL 94, CK 132 normal. Normal K and Mg. Had 01/09/19: K 5.4, CR 0.68. Reduce daily banana intake. BMP, Mg in 3 weeks. Edema [id number] R60.9 Reports intermitte nt swelling. Minimal on exam. Acute non- ST segment elevation myocardial infarction [id number] I21.4 On 02/02/18 prior to CABG. Continue ASA and statin. Peripheral arterial occlusive disease [id number] I73.9 With resolved claudicati on. Had ARTERIAL DOPPLER on 04/10/18 with normal ankle branchial index. No significan t lower extremity peripheral arterial disease detected. On examina tion - carotid bruit [id number] R09.89 Right carotid bruit. Had carotid U/S 05/03/18: mild right ICA stenosis with <50% stenosis and very mild <15% diameter stenosis on left ICA. F/u 12 mo 04/2019. Needs to keep LDL less than 70, and HDL more than 40. [id number] Ayaan Wiggins [place] OFFICE [address] [id number] 03/06/2019 10:44:08 03/06/2019 11:51:17 Coronary arteriosclerosis [id number] I25.10 s/p CABG x 3v., 02/05/18 (ANDREW to anterior decending coronary artery, left radial artery to obtuse marginal coronary artery, reverse saphenous vein graft to second diagonal coronary artery). Continue ASA, statin. Was on metoprolol tartrate 50 mg bid but was decreased to 25 mg bid due to dizziness mid February 2018. Changed to metoprolol succinate 50 mg qd 08/01/18. Hyperlipidemia 17202612 E78.5 LDL 48 01/2018. Needs to keep LDL less than 70, and HDL more than 40. CPK 65 on 04/03/18. Having bilateral resting leg/calf cramping, switched Atorvastat in 40 mg to Livalo 2 mg qd. Had LDL 108 05/11/18. Increased Livalo to 4 mg qd 05/16/18. Reports leg cramps only after increasing dose to Livalo 2 mg qd 06/20/18, but LDL was not well-contr olled on Livalo 2 mg dose at 108 and on 4 mg dose LDL 102. Also intolerant of atorvastat in with leg cramping. CK normal. Began rosuvastat in 10 mg qHS 06/20/18. Obtain FLP 4 wks. 07/25/18 TC: LDL: 89, CPK 117 normal. Needs to keep LDL less than 70, and HDL more than 40. Began Repatha 140 mg SC q 2wks 06/20/18. Needs to keep LDL less than 70, and HDL more than 40 given CAD s/p CABG, and has been intolerant of statins at required doses. For increased TG, began fish oil 2 gm bid 06/20/18. Increased rosuvastat in to 20 mg qHS 08/01/18. Has mild occasional muscle aches on 10 mg with normal CPK, worse with increase to 20 mg dose. Had 08/29/18: TC 179 ,TG 112 , HDL 63, LDL 94, CK 132 normal, while on rosuvastat in 20 mg . Normal K and Mg. Returned to Crestor 10 mg qHS 09/05/18 as that is maximal tolerable dose for patient, but patient is not at goal for severe CAD and moderate carotid artery stenosis. Patient has been unable to start Repatha due to insurance approval still pending. Had 01/09/19: TC 242 ,TG 229 ,HDL 51 ,LDL 145, while on rosuvastat in 10 mg, her maximally tolerated dose. Began Repatha to achieve LDL <70. On Repatha for 1 month as of 03/06/19 but patient was wrongly told by pharmacy to stop rosuvastat in since on Repatha. Resumed rosuvastat in 10 mg 03/06/19 and continue Repatha. Obtain FLP in 1 mo. Increased blood pressure 22760116 R03.0 Patient's blood pressure is {{well-con trolled so mewhat well-contr olled* not well-contr olled}} on present medical therapy. Patient is {{tolerati ng, without difficulty ,* having side effects with}} the current medication s. I have {{not made* made the following} } changes to the current regimen. {{ Patient is advised to maintain a blood pressure diary.*}} Patient was advised to eat a low-sodium diet (2 grams sodium or less daily). Stopped isosorbide dinitrate which she was taking once daily in PM and replaced with isosorbide mononitrat e 30 mg qd 04/18/18. Consider HCTZ if BP diary elevated. Cramp in lower limb 4499 68668 R25.2 Cramping pains, recurrent, improving. Had ARTERIAL DOPPLER on 04/10/18 with normal ankle branchial index. No significan t lower extremity peripheral arterial disease detected. Tried switching statins, Atorvastat in to Livalo to rosuvastat in, then back to 10 mg Crestor 09/05/18. 08/29/18: TC 179 ,TG 112 , HDL 63, LDL 94, CK 132 normal. Normal K and Mg. Had 01/09/19: K 5.4, CR 0.68. Reduced daily banana intake. Had 02-27-2019 : Creati 0.64, K 4.4, ,Mag 1.9 Edema [id number] R60.9 Improved. Reports intermitte nt swelling. Minimal on exam. Acute non- ST segment elevation myocardial infarction [id number] I21.4 On 02/02/18 prior to CABG. Continue ASA and statin. Peripheral arterial occlusive disease [id number] I73.9 With resolved claudicati on. Had ARTERIAL DOPPLER on 04/10/18 with normal ankle branchial index. No significan t lower extremity peripheral arterial disease detected. On examina tion - carotid bruit [id number] R09.89 Right carotid bruit. Had carotid U/S 05/03/18: mild right ICA stenosis with <50% stenosis and very mild <15% diameter stenosis on left ICA. F/u 12 mo 04/2019. Needs to keep LDL less than 70, and HDL more than 40. Obtain carotid U/S F/u 12 mo 04/2019. [id number] Ayaan Wiggins [place] OFFICE [address] [place] [address] 05/22/2019 11:35:56 05/22/2019 13:42:34 Coronary arteriosclerosis [id number] I25.10 s/p CABG x 3v., 02/05/18 (ANDREW to anterior decending coronary artery, left radial artery to obtuse marginal coronary artery, reverse saphenous vein graft to second diagonal coronary artery). Continue ASA, statin, Repatha. Was on metoprolol tartrate 50 mg bid but was decreased to 25 mg bid due to dizziness mid February 2018. Changed to metoprolol succinate 50 mg qd 08/01/18. Hyperlipidemia 56012124 E78.5 LDL 48 01/2018. Needs to keep LDL less than 70, and HDL more than 40. CPK 65 on 04/03/18. Having bilateral resting leg/calf cramping, switched Atorvastat in 40 mg to Livalo 2 mg qd. Had LDL 108 05/11/18. Increased Livalo to 4 mg qd 05/16/18. Reports leg cramps only after increasing dose to Livalo 2 mg qd 06/20/18, but LDL was not well-contr olled on Livalo 2 mg dose at 108 and on 4 mg dose LDL 102. Also intolerant of atorvastat in with leg cramping. CK normal. Began rosuvastat in 10 mg qHS 06/20/18. Obtain FLP 4 wks. 07/25/18 TC: LDL: 89, CPK 117 normal. Needs to keep LDL less than 70, and HDL more than 40. Began Repatha 140 mg SC q 2wks 06/20/18. Needs to keep LDL less than 70, and HDL more than 40 given CAD s/p CABG, and has been intolerant of statins at required doses. For increased TG, began fish oil 2 gm bid 06/20/18. Increased rosuvastat in to 20 mg qHS 08/01/18. Has mild occasional muscle aches on 10 mg with normal CPK, worse with increase to 20 mg dose. Had 08/29/18: TC 179 ,TG 112 , HDL 63, LDL 94, CK 132 normal, while on rosuvastat in 20 mg . Normal K and Mg. Returned to Crestor 10 mg qHS 09/05/18 as that is maximal tolerable dose for patient, but patient is not at goal for severe CAD and moderate carotid artery stenosis. Patient has been unable to start Repatha due to insurance approval still pending. Had 01/09/19: TC 242 ,TG 229 ,HDL 51 ,LDL 145, while on rosuvastat in 10 mg, her maximally tolerated dose. Began Repatha to achieve LDL <70. On Repatha for 1 month as of 03/06/19 but patient was wrongly told by pharmacy to stop rosuvastat in since on Repatha. Resumed rosuvastat in 10 mg 03/06/19 and continue Repatha. Had 05/15/19: TC 113, TG 73, HDL 66, LDL 32. Increased blood pressure [id number] R03.0 Patient's blood pressure is {{well-con trolled* s omewhat well-contr olled not well-contr olled}} on present medical therapy. Patient is {{tolerati ng, without difficulty ,* having side effects with}} the current medication s. I have {{not made* made the following} } changes to the current regimen. {{ Patient is advised to maintain a blood pressure diary.*}} Patient was advised to eat a low-sodium diet (2 grams sodium or less daily). Stopped isosorbide dinitrate which she was taking once daily in PM and replaced with isosorbide mononitrat e 30 mg qd 04/18/18. Consider HCTZ if BP diary elevated. Cramp in lower limb 4499 38165 R25.2 Cramping pains, recurrent, improving. Had ARTERIAL DOPPLER on 04/10/18 with normal ankle branchial index. No significan t lower extremity peripheral arterial disease detected. Tried switching statins, Atorvastat in to Livalo to rosuvastat in, then back to 10 mg Crestor 09/05/18. 08/29/18: TC 179 ,TG 112 , HDL 63, LDL 94, CK 132 normal. Normal K and Mg. Had 01/09/19: K 5.4, CR 0.68. Reduced daily banana intake. Had 02-27-2019 : Creati 0.64, K 4.4, ,Mag 1.9 Edema [id number] R60.9 Improved. Reports intermitte nt swelling. Minimal on exam. Acute non- ST segment elevation myocardial infarction [id number] I21.4 On 02/02/18 prior to CABG. Continue ASA and statin. Peripheral arterial occlusive disease [id number] I73.9 With resolved claudicati on. Had ARTERIAL DOPPLER on 04/10/18 with normal ankle branchial index. No significan t lower extremity peripheral arterial disease detected. On examina tion - carotid bruit [id number] R09.89 Right carotid bruit. Had carotid U/S 05/03/18: mild right ICA stenosis with <50% stenosis and very mild <15% diameter stenosis on left ICA. F/u 12 mo 04/2019. Needs to keep LDL less than 70, and HDL more than 40. Obtained carotid U/S F/u 12 mo 04/2019, result pending. [id number] Ayaan Wiggins [place] OFFICE [facility] [place] [address] 11/27/2019 10:15:55 11/27/2019 11:28:22 Coronary arteriosclerosis [id number] I25.10 s/p CABG x 3v., 02/05/18 (ANDREW to anterior decending coronary artery, left radial artery to obtuse marginal coronary artery, reverse saphenous vein graft to second diagonal coronary artery). Given her prior CABG 02/05/18, need to obtain exercise nuclear stress test to evaluate for ischemia in February 2020 (2 years post CABG) given her continued desire for high level exercise and known severe CAD. Continue ASA, statin, Repatha. Was on metoprolol tartrate 50 mg bid but was decreased to 25 mg bid due to dizziness mid February 2018. Changed to metoprolol succinate 50 mg qd 08/01/18. Hyperlipidemia [id number] E78.5 LDL 48 01/2018. Needs to keep LDL less than 70, and HDL more than 40. CPK 65 on 04/03/18. Having bilateral resting leg/calf cramping, switched Atorvastat in 40 mg to Livalo 2 mg qd. Had LDL 108 05/11/18. Increased Livalo to 4 mg qd 05/16/18. Reports leg cramps only after increasing dose to Livalo 2 mg qd 06/20/18, but LDL was not well-contr olled on Livalo 2 mg dose at 108 and on 4 mg dose LDL 102. Also intolerant of atorvastat in with leg cramping. CK normal. Began rosuvastat in 10 mg qHS 06/20/18. Obtain FLP 4 wks. 07/25/18 TC: LDL: 89, CPK 117 normal. Needs to keep LDL less than 70, and HDL more than 40. Began Repatha 140 mg SC q 2wks 06/20/18. Needs to keep LDL less than 70, and HDL more than 40 given CAD s/p CABG, and has been intolerant of statins at required doses. For increased TG, began fish oil 2 gm bid 06/20/18. Increased rosuvastat in to 20 mg qHS 08/01/18. Has mild occasional muscle aches on 10 mg with normal CPK, worse with increase to 20 mg dose. Had 08/29/18: TC 179 ,TG 112 , HDL 63, LDL 94, CK 132 normal, while on rosuvastat in 20 mg . Normal K and Mg. Returned to Crestor 10 mg qHS 09/05/18 as that is maximal tolerable dose for patient, but patient is not at goal for severe CAD and moderate carotid artery stenosis. Patient has been unable to start Repatha due to insurance approval still pending. Had 01/09/19: TC 242 ,TG 229 ,HDL 51 ,LDL 145, while on rosuvastat in 10 mg, her maximally tolerated dose. Began Repatha to achieve LDL <70. On Repatha for 1 month as of 03/06/19 but patient was wrongly told by pharmacy to stop rosuvastat in since on Repatha. Resumed rosuvastat in 10 mg 03/06/19 and continue Repatha. Had 05/15/19: TC 113, TG 73, HDL 66, LDL 32. Increased blood pressure [id number] R03.0 Patient's blood pressure is {{well-con trolled* s omewhat well-contr olled not well-contr olled}} on present medical therapy. Patient is {{tolerati ng, without difficulty ,* having side effects with}} the current medication s. I have {{not made* made the following} } changes to the current regimen. {{ Patient is advised to maintain a blood pressure diary.*}} Patient was advised to eat a low-sodium diet (2 grams sodium or less daily). Stopped isosorbide dinitrate which she was taking once daily in PM and replaced with isosorbide mononitrat e 30 mg qd 04/18/18. Cramp in lower limb 4499 64432 R25.2 Cramping pains, recurrent, improving. Had ARTERIAL DOPPLER on 04/10/18 with normal ankle branchial index. No significan t lower extremity peripheral arterial disease detected. Tried switching statins, Atorvastat in to Livalo to rosuvastat in, then back to 10 mg Crestor 09/05/18. 08/29/18: TC 179 ,TG 112 , HDL 63, LDL 94, CK 132 normal. Normal K and Mg. Had 01/09/19: K 5.4, CR 0.68. Reduced daily banana intake. Had 02-27-2019 : Creati 0.64, K 4.4, ,Mag 1.9. Obtain BMP, Mg. Edema [id number] R60.9 Resolved. Low Na diet. Acute non- ST segment elevation myocardial infarction [id number] I21.4 On 02/02/18 prior to CABG. Continue ASA and statin. Peripheral arterial occlusive disease 910226390 I73.9 With resolved claudicati on. Had ARTERIAL DOPPLER on 04/10/18 with normal ankle branchial index. No significan t lower extremity peripheral arterial disease detected. On examina tion - carotid bruit [id number] R09.89 Right carotid bruit. Had carotid U/S 05/03/18: mild right ICA stenosis with <50% stenosis and very mild <15% diameter stenosis on left ICA. F/u 12 mo 04/2019. Needs to keep LDL less than 70, and HDL more than 40. Obtained carotid U/S 05/16/19: Antegrade flow noted in both vertebral arteries. Very mild left internal carotid artery stenosis with less than 15% diameter stenosis. Mild right bilateral carotid artery stenosis with less than 50% diameter stenosis. Compared to last study in 04/23, there are no changes. Continue ASA. [id number] Ayaan Wiggins [facility] [address] [place] [address] 02/26/2020 12:12:45 02/26/2020 14:50:50 Coronary arteriosclerosis [id number] I25.10 s/p CABG x 3v., 02/05/18 (ANDREW to anterior decending coronary artery, left radial artery to obtuse marginal coronary artery, reverse saphenous vein graft to second diagonal coronary artery). Had treadmill nuclear stress test (PROC) 02/05/20 Stress test: Negative stress test for ischemia. Normal LV function. Abnormal stress test. No previous study to compare. Artifact noted. Average exercise tolerance. Continue ASA, statin, Repatha. Was on metoprolol tartrate 50 mg bid but was decreased to 25 mg bid due to dizziness mid February 2018. Changed to metoprolol succinate 50 mg qd 08/01/18. Hyperlipidemia 14549089 E78.5 LDL 48 01/2018. Needs to keep LDL less than 70, and HDL more than 40. CPK 65 on 04/03/18. Having bilateral resting leg/calf cramping, switched Atorvastat in 40 mg to Livalo 2 mg qd. Had LDL 108 05/11/18. Increased Livalo to 4 mg qd 05/16/18. Reports leg cramps only after increasing dose to Livalo 2 mg qd 06/20/18, but LDL was not well-contr olled on Livalo 2 mg dose at 108 and on 4 mg dose LDL 102. Also intolerant of atorvastat in with leg cramping. CK normal. Began rosuvastat in 10 mg qHS 06/20/18. Obtain FLP 4 wks. 07/25/18 TC: LDL: 89, CPK 117 normal. Needs to keep LDL less than 70, and HDL more than 40. Began Repatha 140 mg SC q 2wks 06/20/18. Needs to keep LDL less than 70, and HDL more than 40 given CAD s/p CABG, and has been intolerant of statins at required doses. For increased TG, began fish oil 2 gm bid 06/20/18. Increased rosuvastat in to 20 mg qHS 08/01/18. Has mild occasional muscle aches on 10 mg with normal CPK, worse with increase to 20 mg dose. Had 08/29/18: TC 179 ,TG 112 , HDL 63, LDL 94, CK 132 normal, while on rosuvastat in 20 mg . Normal K and Mg. Returned to Crestor 10 mg qHS 09/05/18 as that is maximal tolerable dose for patient, but patient is not at goal for severe CAD and moderate carotid artery stenosis. Patient has been unable to start Repatha due to insurance approval still pending. Had 01/09/19: TC 242 ,TG 229 ,HDL 51 ,LDL 145, while on rosuvastat in 10 mg, her maximally tolerated dose. Began Repatha to achieve LDL <70. On Repatha for 1 month as of 03/06/19 but patient was wrongly told by pharmacy to stop rosuvastat in since on Repatha. Resumed rosuvastat in 10 mg 03/06/19 and continue Repatha. Had 05/15/19: TC 113, TG 73, HDL 66, LDL 32. Need to renew Repatha since pharmacy denied filling Repatha. When she was off Repatha for 1 month, had 02/19/20:T C 230 ,TG 281 ,HDL 53,LDL 121. Needs to resume Repatha since not at goal of LDL <70 with CAD s/p CABG on maximally tolerated dose of rosuvastat in. For increased TG, resumed higher dose of fish oil 2 gm bid 02/26/20. Obtain FLP in 2.5 months back on Repatha and on higher dose of fish oil. Increased blood pressure [id number] R03.0 Patient's blood pressure is {{well-con trolled so mewhat well-contr olled not well-contr olled*}} on present medical therapy. Patient is {{tolerati ng, without difficulty ,* having side effects with}} the current medication s. I have {{not made* made the following} } changes to the current regimen. {{ Patient is advised to maintain a blood pressure diary.*}} Patient was advised to eat a low-sodium diet (2 grams sodium or less daily). Stopped isosorbide dinitrate which she was taking once daily in PM and replaced with isosorbide mononitrat e 30 mg qd 04/18/18. Cramp in lower limb 4499 [id number] R25.2 Cramping pains, recurrent, improving. Had ARTERIAL DOPPLER on 04/10/18 with normal ankle branchial index. No significan t lower extremity peripheral arterial disease detected. Tried switching statins, Atorvastat in to Livalo to rosuvastat in, then back to 10 mg Crestor 09/05/18. 08/29/18: TC 179 ,TG 112 , HDL 63, LDL 94, CK 132 normal. Normal K and Mg. Had 01/09/19: K 5.4, CR 0.68. Reduced daily banana intake. Had 02-27-2019 : Creati 0.64, K 4.4, ,Mag 1.9. Had 02/19/20: Na 140 ,K 4.5 , CL 102 ,CO2 25, GLU 95. ,BUN 18 , CR 0.69 ,AST 30,ALT 27 Edema [id number] R60.9 Resolved. Low Na diet. Acute non- ST segment elevation myocardial infarction [id number] I21.4 On 02/02/18 prior to CABG. Continue ASA and statin. Peripheral arterial occlusive disease [id number] I73.9 With resolved claudicati on. Had ARTERIAL DOPPLER on 04/10/18 with normal ankle branchial index. No significan t lower extremity peripheral arterial disease detected. On examina tion - carotid bruit [id number] R09.89 Right carotid bruit. Had carotid U/S 05/03/18: mild right ICA stenosis with <50% stenosis and very mild <15% diameter stenosis on left ICA. F/u 12 mo 04/2019. Needs to keep LDL less than 70, and HDL more than 40. Obtained carotid U/S 05/16/19: Antegrade flow noted in both vertebral arteries. Very mild left internal carotid artery stenosis with less than 15% diameter stenosis. Mild right bilateral carotid artery stenosis with less than 50% diameter stenosis. Compared to last study in 04/23, there are no changes. Continue ASA. [id number] [facility] [place] [address] [place] [address] 05/27/2020 11:34:54 05/27/2020 12:21:35 Coronary arteriosclerosis [id number] I25.10 s/p CABG x 3v., 02/05/18 (ANDREW to anterior decending coronary artery, left radial artery to obtuse marginal coronary artery, reverse saphenous vein graft to second diagonal coronary artery). Had treadmill nuclear stress test (PROC) 02/05/20 Stress test: Negative stress test for ischemia. Normal LV function. Abnormal stress test. No previous study to compare. Artifact noted. Average exercise tolerance. Continue ASA, statin, Repatha. Was on metoprolol tartrate 50 mg bid but was decreased to 25 mg bid due to dizziness mid February 2018. Changed to metoprolol succinate 50 mg qd 08/01/18. Hyperlipidemia [id number] E78.5 Needs to keep LDL less than 70, and HDL more than 40. CPK 65 on 04/03/18. Having bilateral resting leg/calf cramping, switched Atorvastat in 40 mg to Livalo 2 mg qd. Had LDL 108 05/11/18. Increased Livalo to 4 mg qd 05/16/18. Reports leg cramps only after increasing dose to Livalo 2 mg qd 06/20/18, but LDL was not well-contr olled on Livalo 2 mg dose at 108 and on 4 mg dose LDL 102. Also intolerant of atorvastat in with leg cramping. CK normal. Began rosuvastat in 10 mg qHS 06/20/18. Obtain FLP 4 wks. 07/25/18 TC: LDL: 89, CPK 117 normal. Needs to keep LDL less than 70, and HDL more than 40. Began Repatha 140 mg SC q 2wks 06/20/18. Needs to keep LDL less than 70, and HDL more than 40 given CAD s/p CABG, and has been intolerant of statins at required doses. For increased TG, began fish oil 2 gm bid 06/20/18. Increased rosuvastat in to 20 mg qHS 08/01/18. Has mild occasional muscle aches on 10 mg with normal CPK, worse with increase to 20 mg dose. Had 08/29/18: TC 179 ,TG 112 , HDL 63, LDL 94, CK 132 normal, while on rosuvastat in 20 mg . Normal K and Mg. Returned to Crestor 10 mg qHS 09/05/18 as that is maximal tolerable dose for patient, but patient is not at goal for severe CAD and moderate carotid artery stenosis. Patient has been unable to start Repatha due to insurance approval still pending. Had 01/09/19: TC 242 ,TG 229 ,HDL 51 ,LDL 145, while on rosuvastat in 10 mg, her maximally tolerated dose. Began Repatha to achieve LDL <70. On Repatha for 1 month as of 03/06/19 but patient was wrongly told by pharmacy to stop rosuvastat in since on Repatha. Resumed rosuvastat in 10 mg 03/06/19 and continue Repatha. Had 05/15/19: TC 113, TG 73, HDL 66, LDL 32. Need to renew Repatha since pharmacy denied filling Repatha. When she was off Repatha for 1 month, had 02/19/20:T C 230 ,TG 281 ,HDL 53,LDL 121. Needs to resume Repatha since not at goal of LDL <70 with CAD s/p CABG on maximally tolerated dose of rosuvastat in. For increased TG, resumed higher dose of fish oil 2 gm bid 02/26/20. Obtained FLP in 2 months back on Repatha and on higher dose of fish oil: Had LIPID 05/20/2020: CH 141 TR 118 HDL 54 LDL 63. Continue Repatha and rosuvastat in. In 6 months, FLP, CMP, Mg. Increased blood pressure [id number] R03.0 Patient's blood pressure is {{well-con trolled* s omewhat well-contr olled not well-contr olled}} on present medical therapy. Patient is {{tolerati ng, without difficulty ,* having side effects with}} the current medication s. I have {{not made* made the following} } changes to the current regimen. {{ Patient is advised to maintain a blood pressure diary.*}} Patient was advised to eat a low-sodium diet (2 grams sodium or less daily). Stopped isosorbide dinitrate which she was taking once daily in PM and replaced with isosorbide mononitrat e 30 mg qd 04/18/18. Cramp in lower limb 4499 [id number] R25.2 Cramping pains, improving, rare, worse with heat. Had ARTERIAL DOPPLER on 04/10/18 with normal ankle branchial index. No significan t lower extremity peripheral arterial disease detected. Tried switching statins, Atorvastat in to Livalo to rosuvastat in, then back to 10 mg Crestor 09/05/18. 08/29/18: TC 179 ,TG 112 , HDL 63, LDL 94, CK 132 normal. Normal K and Mg. Had 01/09/19: K 5.4, CR 0.68. Reduced daily banana intake. Had 02-27-2019 : Creati 0.64, K 4.4, ,Mag 1.9. Had 02/19/20: Na 140 ,K 4.5 , CL 102 ,CO2 25, GLU 95. ,BUN 18 , CR 0.69 ,AST 30,ALT 27 Edema [id number] R60.9 Resolved. Low Na diet. Acute non- ST segment elevation myocardial infarction [id number] I21.4 On 02/02/18 prior to CABG. Continue ASA and Repatha/st atin. Peripheral arterial occlusive disease 126107627 I73.9 With resolved claudicati on. Had ARTERIAL DOPPLER on 04/10/18 with normal ankle branchial index. No significan t lower extremity peripheral arterial disease detected. On examina tion - carotid bruit [id number] R09.89 Right carotid bruit. Had carotid U/S 05/03/18: mild right ICA stenosis with <50% stenosis and very mild <15% diameter stenosis on left ICA. F/u 12 mo 04/2019. Needs to keep LDL less than 70, and HDL more than 40. Obtained carotid U/S 05/16/19: Antegrade flow noted in both vertebral arteries. Very mild left internal carotid artery stenosis with less than 15% diameter stenosis. Mild right bilateral carotid artery stenosis with less than 50% diameter stenosis. Compared to last study in 04/23, there are no changes. Continue ASA. Obtain repeat carotid U/S 05/2021. [id number] [address] [place] [place] [address] 11/18/2020 11:19:45 11/18/2020 12:59:55 Coronary arteriosclerosis [id number] I25.10 s/p CABG x 3v., 02/05/18 (ANDREW to anterior decending coronary artery, left radial artery to obtuse marginal coronary artery, reverse saphenous vein graft to second diagonal coronary artery). Had treadmill nuclear stress test (PROC) 02/05/20 Stress test: Negative stress test for ischemia. Normal LV function. Abnormal stress test. No previous study to compare. Artifact noted. Average exercise tolerance. Continue ASA, statin, Repatha. Was on metoprolol tartrate 50 mg bid but was decreased to 25 mg bid due to dizziness mid February 2018. Changed to metoprolol succinate 50 mg qd 08/01/18. Hyperlipidemia [id number] E78.5 Needs to keep LDL less than 70, and HDL more than 40. CPK 65 on 04/03/18. Having bilateral resting leg/calf cramping, switched Atorvastat in 40 mg to Livalo 2 mg qd. Had LDL 108 05/11/18. Increased Livalo to 4 mg qd 05/16/18. Reports leg cramps only after increasing dose to Livalo 2 mg qd 06/20/18, but LDL was not well-contr olled on Livalo 2 mg dose at 108 and on 4 mg dose LDL 102. Also intolerant of atorvastat in with leg cramping. CK normal. Began rosuvastat in 10 mg qHS 06/20/18. Obtain FLP 4 wks. 07/25/18 TC: LDL: 89, CPK 117 normal. Needs to keep LDL less than 70, and HDL more than 40. Began Repatha 140 mg SC q 2wks 06/20/18. Needs to keep LDL less than 70, and HDL more than 40 given CAD s/p CABG, and has been intolerant of statins at required doses. For increased TG, began fish oil 2 gm bid 06/20/18. Increased rosuvastat in to 20 mg qHS 08/01/18. Has mild occasional muscle aches on 10 mg with normal CPK, worse with increase to 20 mg dose. Had 08/29/18: TC 179 ,TG 112 , HDL 63, LDL 94, CK 132 normal, while on rosuvastat in 20 mg . Normal K and Mg. Returned to Crestor 10 mg qHS 09/05/18 as that is maximal tolerable dose for patient, but patient is not at goal for severe CAD and moderate carotid artery stenosis. Patient has been unable to start Repatha due to insurance approval still pending. Had 01/09/19: TC 242 ,TG 229 ,HDL 51 ,LDL 145, while on rosuvastat in 10 mg, her maximally tolerated dose. Began Repatha to achieve LDL <70. On Repatha for 1 month as of 03/06/19 but patient was wrongly told by pharmacy to stop rosuvastat in since on Repatha. Resumed rosuvastat in 10 mg 03/06/19 and continue Repatha. Had 05/15/19: TC 113, TG 73, HDL 66, LDL 32. Need to renew Repatha since pharmacy denied filling Repatha. When she was off Repatha for 1 month, had 02/19/20:T C 230 ,TG 281 ,HDL 53,LDL 121. Needs to resume Repatha since not at goal of LDL <70 with CAD s/p CABG on maximally tolerated dose of rosuvastat in. For increased TG, resumed higher dose of fish oil 2 gm bid 02/26/20. Obtained FLP in 2 months back on Repatha and on higher dose of fish oil: Had LIPID 05/20/2020: CH 141 TR 118 HDL 54 LDL 63. Had LIPID 11/11/2020: TG 91,LDL 72,HDL 73.Continu e Repatha and rosuvastat in. In 6 months, FLP, CMP, Mg. Increased blood pressure [id number] R03.0 Patient's blood pressure is {{well-con trolled* s omewhat well-contr olled not well-contr olled}} on present medical therapy. Patient is {{tolerati ng, without difficulty ,* having side effects with}} the current medication s. I have {{not made* made the following} } changes to the current regimen. {{ Patient is advised to maintain a blood pressure diary.*}} Patient was advised to eat a low-sodium diet (2 grams sodium or less daily). Stopped isosorbide dinitrate which she was taking once daily in PM and replaced with isosorbide mononitrat e 30 mg qd 04/18/18. Cramp in lower limb 4499 13598 R25.2 Resolved Had ARTERIAL DOPPLER on 04/10/18 with normal ankle branchial index. No significan t lower extremity peripheral arterial disease detected. Tried switching statins, Atorvastat in to Livalo to rosuvastat in, then back to 10 mg Crestor 09/05/18. 08/29/18: TC 179 ,TG 112 , HDL 63, LDL 94, CK 132 normal. Normal K and Mg. Had 01/09/19: K 5.4, CR 0.68. Reduced daily banana intake. Had 02-27-2019 : Creati 0.64, K 4.4, ,Mag 1.9. Had 02/19/20: Na 140 ,K 4.5 , CL 102 ,CO2 25, GLU 95. ,BUN 18 , CR 0.69 ,AST 30,ALT 27Had 11/11/20: Na 143,K 4.5,Cl 106, CO2 22, GLU 87,BUN 18,Cr 0.74,AST 29,ALT 22, Edema [id number] R60.9 Resolved. Low Na diet. Acute non- ST segment elevation myocardial infarction [id number] I21.4 On 02/02/18 prior to CABG. Continue ASA and Repatha/st atin. Peripheral arterial occlusive disease [id number] I73.9 With resolved claudicati on. Had ARTERIAL DOPPLER on 04/10/18 with normal ankle branchial index. No significan t lower extremity peripheral arterial disease detected. On examina tion - carotid bruit [id number] R09.89 Right carotid bruit. Had carotid U/S 05/03/18: mild right ICA stenosis with <50% stenosis and very mild <15% diameter stenosis on left ICA. F/u 12 mo 04/2019. Needs to keep LDL less than 70, and HDL more than 40. Obtained carotid U/S 05/16/19: Antegrade flow noted in both vertebral arteries. Very mild left internal carotid artery stenosis with less than 15% diameter stenosis. Mild right bilateral carotid artery stenosis with less than 50% diameter stenosis. Compared to last study in 04/23, there are no changes. Continue ASA. Obtain repeat carotid U/S 05/2021. [id number] [address] [place] OFF[facility] [place] [address] 06/16/2021 15:24:25 06/16/2021 17:02:40 Coronary arteriosclerosis [id number] I25.10 s/p CABG x 3v., 02/05/18 (ANDREW to anterior decending coronary artery, left radial artery to obtuse marginal coronary artery, reverse saphenous vein graft to second diagonal coronary artery). Had treadmill nuclear stress test (PROC) 02/05/20 Stress test: Negative stress test for ischemia. Normal LV function. Abnormal stress test. No previous study to compare. Artifact noted. Average exercise tolerance. Continue ASA, statin, Repatha. Was on metoprolol tartrate 50 mg bid but was decreased to 25 mg bid due to dizziness mid February 2018. Changed to metoprolol succinate 50 mg qd 08/01/18. Hyperlipidemia 06129789 E78.5 Needs to keep LDL less than 70, and HDL more than 40. CPK 65 on 04/03/18. Having bilateral resting leg/calf cramping, switched Atorvastat in 40 mg to Livalo 2 mg qd. Had LDL 108 05/11/18. Increased Livalo to 4 mg qd 05/16/18. Reports leg cramps only after increasing dose to Livalo 2 mg qd 06/20/18, but LDL was not well-contr olled on Livalo 2 mg dose at 108 and on 4 mg dose LDL 102. Also intolerant of atorvastat in with leg cramping. CK normal. Began rosuvastat in 10 mg qHS 06/20/18. Obtain FLP 4 wks. 07/25/18 TC: LDL: 89, CPK 117 normal. Needs to keep LDL less than 70, and HDL more than 40. Began Repatha 140 mg SC q 2wks 06/20/18. Needs to keep LDL less than 70, and HDL more than 40 given CAD s/p CABG, and has been intolerant of statins at required doses. For increased TG, began fish oil 2 gm bid 06/20/18. Increased rosuvastat in to 20 mg qHS 08/01/18. Has mild occasional muscle aches on 10 mg with normal CPK, worse with increase to 20 mg dose. Had 08/29/18: TC 179 ,TG 112 , HDL 63, LDL 94, CK 132 normal, while on rosuvastat in 20 mg . Normal K and Mg. Returned to Crestor 10 mg qHS 09/05/18 as that is maximal tolerable dose for patient, but patient is not at goal for severe CAD and moderate carotid artery stenosis. Patient has been unable to start Repatha due to insurance approval still pending. Had 01/09/19: TC 242 ,TG 229 ,HDL 51 ,LDL 145, while on rosuvastat in 10 mg, her maximally tolerated dose. Began Repatha to achieve LDL <70. On Repatha for 1 month as of 03/06/19 but patient was wrongly told by pharmacy to stop rosuvastat in since on Repatha. Resumed rosuvastat in 10 mg 03/06/19 and continue Repatha. Had 05/15/19: TC 113, TG 73, HDL 66, LDL 32. Need to renew Repatha since pharmacy denied filling Repatha. When she was off Repatha for 1 month, had 02/19/20:T C 230 ,TG 281 ,HDL 53,LDL 121. Needs to resume Repatha since not at goal of LDL <70 with CAD s/p CABG on maximally tolerated dose of rosuvastat in. For increased TG, resumed higher dose of fish oil 2 gm bid 02/26/20. Obtained FLP in 2 months back on Repatha and on higher dose of fish oil: Had LIPID 05/20/2020: CH 141 TR 118 HDL 54 LDL 63. Had LIPID 11/11/2020: TG 91,LDL 72,HDL 73.Continu e Repatha and rosuvastat in. She ran out of Repatha late 03/2021, Had 05/05/21: TC 181, TG 135, HDL 63, LDL 95, off Repatha. Renew Repatha script. Once back on Repatha for 3-4 weeks, obtain FLP, CMP, Mg, CBC, TSH. Increased blood pressure [id number] R03.0 Patient's blood pressure is {{well-con trolled* s omewhat well-contr olled not well-contr olled}} on present medical therapy. Patient is {{tolerati ng, without difficulty ,* having side effects with}} the current medication s. I have {{not made* made the following} } changes to the current regimen. {{ Patient is advised to maintain a blood pressure diary.*}} Patient was advised to eat a low-sodium diet (2 grams sodium or less daily). Stopped isosorbide dinitrate which she was taking once daily in PM and replaced with isosorbide mononitrat e 30 mg qd 04/18/18. Cramp in lower limb 4499 [id number] R25.2 Resolved Had ARTERIAL DOPPLER on 04/10/18 with normal ankle branchial index. No significan t lower extremity peripheral arterial disease detected. Tried switching statins, Atorvastat in to Livalo to rosuvastat in, then back to 10 mg Crestor 09/05/18. 08/29/18: TC 179 ,TG 112 , HDL 63, LDL 94, CK 132 normal. Normal K and Mg. Had 01/09/19: K 5.4, CR 0.68. Reduced daily banana intake. Had 02-27-2019 : Creati 0.64, K 4.4, ,Mag 1.9. Had 02/19/20: Na 140 ,K 4.5 , CL 102 ,CO2 25, GLU 95. ,BUN 18 , CR 0.69 ,AST 30,ALT 27Had 11/11/20: Na 143,K 4.5,Cl 106, CO2 22, GLU 87,BUN 18,Cr 0.74,AST 29,ALT 22, Edema [id number] R60.9 Resolved. Low Na diet. Acute non- ST segment elevation myocardial infarction [id number] I21.4 On 02/02/18 prior to CABG. Continue ASA and Repatha/st atin. Peripheral arterial occlusive disease 434394477 I73.9 With resolved claudicati on. Had ARTERIAL DOPPLER on 04/10/18 with normal ankle branchial index. No significan t lower extremity peripheral arterial disease detected. On examina tion - carotid bruit [id number] R09.89 Right carotid bruit. Had US, carotid artery 02/08/21 CAROTID US: Antegrade flow noted in both vertebral arteries. Mild right internal carotid artery stenosis with less than 50% diameter stenosis. Very mild left internal carotid artery stenosis with less than 15% diameter stenosis. Had carotid U/S 05/03/18: mild right ICA stenosis with <50% stenosis and very mild <15% diameter stenosis on left ICA. F/u 12 mo 04/2019. Needs to keep LDL less than 70, and HDL more than 40. Obtained carotid U/S 05/16/19: Antegrade flow noted in both vertebral arteries. Very mild left internal carotid artery stenosis with less than 15% diameter stenosis. Mild right bilateral carotid artery stenosis with less than 50% diameter stenosis. Compared to last study in 04/23, there are no changes. Continue ASA. Obtain repeat carotid U/S 02/2023. Tricuspid valve regurgitation [id number] I07.1 Mild-moder ate. Had ECHO done in 02/02/18 showed EF 55% , Mild to moderate tricuspid regurgitat ion. Mild mitral valve regurgitat ion. Obtain echo to evaluate for structural /functiona l disease, [place]. [id number] [facility] [address] [place] [address] 08/25/2021 11:52:14 08/25/2021 12:55:54 Coronary arteriosclerosis 42352962 I25.10 s/p CABG x 3v., 02/05/18 (ANDREW to anterior decending coronary artery, left radial artery to obtuse marginal coronary artery, reverse saphenous vein graft to second diagonal coronary artery). Had treadmill nuclear stress test (PROC) 02/05/20 Stress test: Negative stress test for ischemia. Normal LV function. Abnormal stress test. No previous study to compare. Artifact noted. Average exercise tolerance. Continue ASA, statin, Repatha. Was on metoprolol tartrate 50 mg bid but was decreased to 25 mg bid due to dizziness mid February 2018. Changed to metoprolol succinate 50 mg qd 08/01/18. Anticipate stress test 02/2022. Hyperlipidemia 90786722 E78.5 Needs to keep LDL less than 70, and HDL more than 40. Having bilateral resting leg/calf cramping, switched Atorvastat in 40 mg to Livalo 2 mg qd. Reports leg cramps only after increasing dose to Livalo 2 mg qd 06/20/18, but LDL was not well-contr olled on Livalo 2 mg dose at 108 and on 4 mg dose LDL 102. Also intolerant of atorvastat in with leg cramping. CK normal. Began rosuvastat in 10 mg qHS 06/20/18. Obtain FLP 4 wks. 07/25/18 TC: LDL: 89, CPK 117 normal. Began Repatha 140 mg SC q 2wks 06/20/18. Needs to keep LDL less than 70, and HDL more than 40 given CAD s/p CABG, and has been intolerant of statins at required doses. Increased rosuvastat in to 20 mg qHS 08/01/18. Has mild occasional muscle aches on 10 mg with normal CPK, worse with increase to 20 mg dose. Had 08/29/18: TC 179 ,TG 112 , HDL 63, LDL 94, CK 132 normal, while on rosuvastat in 20 mg . Normal K and Mg. Returned to Crestor 10 mg qHS 09/05/18 as that is maximal tolerable dose for patient, but patient is not at goal for severe CAD and moderate carotid artery stenosis. Had 01/09/19: TC 242 ,TG 229 ,HDL 51 ,LDL 145, while on rosuvastat in 10 mg, her maximally tolerated dose. Began Repatha to achieve LDL <70. On Repatha for 1 month as of 03/06/19 but patient was wrongly told by pharmacy to stop rosuvastat in since on Repatha. Resumed rosuvastat in 10 mg 03/06/19 and continue Repatha. Had 05/15/19: TC 113, TG 73, HDL 66, LDL 32. When she was off Repatha for 1 month, had 02/19/20:T C 230 ,TG 281 ,HDL 53,LDL 121. Needs to resume Repatha since not at goal of LDL <70 with CAD s/p CABG on maximally tolerated dose of rosuvastat in. For increased TG, resumed higher dose of fish oil 2 gm bid 02/26/20. Obtained FLP in 2 months back on Repatha and on higher dose of fish oil: Had LIPID 05/20/2020: CH 141 TR 118 HDL 54 LDL 63. Had LIPID 11/11/2020: TG 91,LDL 72,HDL 73.Continu e Repatha and rosuvastat in. She ran out of Repatha late 03/2021, Had 05/05/21: TC 181, TG 135, HDL 63, LDL 95, off Repatha. Was on Repatha for 3-4 weeks, then had labs:08/18: TC 167, TR 225, HDL 52, LDL 78, on maximally tolerated dose of rosuvastat in 10 mg qHS and on Repatha, with LDL now improved on Repatha but not yet at goal. Increased to fish oil 2 gm bid 08/25/21. Needs to keep LDL less than 70, and HDL more than 40 given CAD s/p CABG. Needs renewal of Repatha script with insurance approval. Began Zetia 10 mg qHS 08/25/21. Obtain FLP. Increased blood pressure [id number] R03.0 Patient's blood pressure is {{well-con trolled* s omewhat well-contr olled not well-contr olled}} on present medical therapy. Patient is {{tolerati ng, without difficulty ,* having side effects with}} the current medication s. I have {{not made* made the following} } changes to the current regimen. {{ Patient is advised to maintain a blood pressure diary.*}} Patient was advised to eat a low-sodium diet (2 grams sodium or less daily). Stopped isosorbide dinitrate which she was taking once daily in PM and replaced with isosorbide mononitrat e 30 mg qd 04/18/18. Cramp in lower limb [id number] [id number] R25.2 Intermitte nt. Had ARTERIAL DOPPLER on 04/10/18 with normal ankle branchial index. No significan t lower extremity peripheral arterial disease detected. Tried switching statins, Atorvastat in to Livalo to rosuvastat in, then back to 10 mg Crestor 09/05/18. 08/29/18: TC 179 ,TG 112 , HDL 63, LDL 94, CK 132 normal. Normal K and Mg. Had 01/09/19: K 5.4, CR 0.68. Reduced daily banana intake. Had 02-27-2019 : Creati 0.64, K 4.4, ,Mag 1.9. Had 02/19/20: Na 140 ,K 4.5 , CL 102 ,CO2 25, GLU 95. ,BUN 18 , CR 0.69 ,AST 30,ALT 27 Had 11/11/20: Na 143,K 4.5 Had 08/18/21: NA 142, K 5.3, CL 106, CO2 23, BUN 18, CR 0.67, GLU 104, AST 26, ALT 20 Given mildly increased K 5.3, reviewed list of high K foods. Already avoiding bananas, and she will cut down on whitefish and especially sports drinks. Obtain BMP, Mg. Edema [id number] R60.9 Resolved. Low Na diet. Had echo 08/09/21: normal LV size and thickness, LVEF 65-70%, grade 2 DD. trace TR, RVSP 11. Acute non- ST segment elevation myocardial infarction [id number] I21.4 On 02/02/18 prior to CABG. Continue ASA and Repatha/st atin. Peripheral arterial occlusive disease [id number] I73.9 With resolved claudicati on. Had ARTERIAL DOPPLER on 04/10/18 with normal ankle branchial index. No significan t lower extremity peripheral arterial disease detected. On examina tion - carotid bruit [id number] R09.89 Right carotid bruit. Had US, carotid artery 02/08/21 CAROTID US: Antegrade flow noted in both vertebral arteries. Mild right internal carotid artery stenosis with less than 50% diameter stenosis. Very mild left internal carotid artery stenosis with less than 15% diameter stenosis. Had carotid U/S 05/03/18: mild right ICA stenosis with <50% stenosis and very mild <15% diameter stenosis on left ICA. F/u 12 mo 04/2019. Needs to keep LDL less than 70, and HDL more than 40. Obtained carotid U/S 05/16/19: Antegrade flow noted in both vertebral arteries. Very mild left internal carotid artery stenosis with less than 15% diameter stenosis. Mild right bilateral carotid artery stenosis with less than 50% diameter stenosis. Compared to last study in 04/23, there are no changes. Continue ASA. Obtain repeat carotid U/S 02/2023. Tricuspid valve regurgitation [id number] I07.1 Mild-moder ate previously , improved to trace. Had echo 08/09/21: normal LV size and thickness, LVEF 65-70%, grade 2 DD. trace TR, RVSP 11. Had ECHO done in 02/02/18 showed EF 55% , Mild to moderate tricuspid regurgitat ion. Mild mitral valve regurgitat ion. [id number] [address] [facility] [place] [facility] [address] [place] [address] 11/03/2021 11:35:50 11/03/2021 13:15:13 Coronary arteriosclerosis [id number] I25.10 s/p CABG x 3v., 02/05/18 (ANDREW to anterior decending coronary artery, left radial artery to obtuse marginal coronary artery, reverse saphenous vein graft to second diagonal coronary artery). Had treadmill nuclear stress test (PROC) 02/05/20 Stress test: Negative stress test for ischemia. Normal LV function. Abnormal stress test. No previous study to compare. Artifact noted. Average exercise tolerance. Continue ASA, statin, Repatha. Was on metoprolol tartrate 50 mg bid but was decreased to 25 mg bid due to dizziness mid February 2018. Changed to metoprolol succinate 50 mg qd 08/01/18. Anticipate stress test 02/2022. Minimize/e liminate meloxicam. Hyperlipidemia [id number] E78.5 Needs to keep LDL less than 70, and HDL more than 40. Having bilateral resting leg/calf cramping, switched Atorvastat in 40 mg to Livalo 2 mg qd. Reports leg cramps only after increasing dose to Livalo 2 mg qd 06/20/18, but LDL was not well-contr olled on Livalo 2 mg dose at 108 and on 4 mg dose LDL 102. Also intolerant of atorvastat in with leg cramping. CK normal. Began rosuvastat in 10 mg qHS 06/20/18. Obtain FLP 4 wks. 07/25/18 TC: LDL: 89, CPK 117 normal. Began Repatha 140 mg SC q 2wks 06/20/18. Needs to keep LDL less than 70, and HDL more than 40 given CAD s/p CABG, and has been intolerant of statins at required doses. Increased rosuvastat in to 20 mg qHS 08/01/18. Has mild occasional muscle aches on 10 mg with normal CPK, worse with increase to 20 mg dose. Had 08/29/18: TC 179 ,TG 112 , HDL 63, LDL 94, CK 132 normal, while on rosuvastat in 20 mg . Normal K and Mg. Returned to Crestor 10 mg qHS 09/05/18 as that is maximal tolerable dose for patient, but patient is not at goal for severe CAD and moderate carotid artery stenosis. Had 01/09/19: TC 242 ,TG 229 ,HDL 51 ,LDL 145, while on rosuvastat in 10 mg, her maximally tolerated dose. Began Repatha to achieve LDL <70. On Repatha for 1 month as of 03/06/19 but patient was wrongly told by pharmacy to stop rosuvastat in since on Repatha. Resumed rosuvastat in 10 mg 03/06/19 and continue Repatha. Had 05/15/19: TC 113, TG 73, HDL 66, LDL 32. When she was off Repatha for 1 month, had 02/19/20:T C 230 ,TG 281 ,HDL 53,LDL 121. Needs to resume Repatha since not at goal of LDL <70 with CAD s/p CABG on maximally tolerated dose of rosuvastat in. For increased TG, resumed higher dose of fish oil 2 gm bid 02/26/20. Obtained FLP in 2 months back on Repatha and on higher dose of fish oil: Had LIPID 05/20/2020: CH 141 TR 118 HDL 54 LDL 63. Had LIPID 11/11/2020: TG 91,LDL 72,HDL 73.Continu e Repatha and rosuvastat in. She ran out of Repatha late 03/2021, Had 05/05/21: TC 181, TG 135, HDL 63, LDL 95, off Repatha. Was on Repatha for 3-4 weeks, then had labs:08/18: TC 167, TR 225, HDL 52, LDL 78, on maximally tolerated dose of rosuvastat in 10 mg qHS and on Repatha, with LDL now improved on Repatha but not yet at goal. Increased to fish oil 2 gm bid 08/25/21. Needs to keep LDL less than 70, and HDL more than 40 given CAD s/p CABG. Needs renewal of Repatha script with insurance approval. Began Zetia 10 mg qHS 08/25/21, for which she had increased leg cramping after tolerating 1st 2 weeks. She may retry. Obtained FLP when not on Zetia, results pending. Increased blood pressure [id number] R03.0 Patient's blood pressure is {{well-con trolled* s omewhat well-contr olled not well-contr olled}} on present medical therapy. Patient is {{tolerati ng, without difficulty ,* having side effects with}} the current medication s. I have {{not made* made the following} } changes to the current regimen. {{ Patient is advised to maintain a blood pressure diary.*}} Patient was advised to eat a low-sodium diet (2 grams sodium or less daily). Stopped isosorbide dinitrate which she was taking once daily in PM and replaced with isosorbide mononitrat e 30 mg qd 04/18/18. Cramp in lower limb 4499 [id number] R25.2 Intermitte nt. At rest. Had ARTERIAL DOPPLER on 04/10/18 with normal ankle branchial index. No significan t lower extremity peripheral arterial disease detected. Tried switching statins, Atorvastat in to Livalo to rosuvastat in, then back to 10 mg Crestor 09/05/18. 08/29/18: TC 179 ,TG 112 , HDL 63, LDL 94, CK 132 normal. Normal K and Mg. Had 01/09/19: K 5.4, CR 0.68. Reduced daily banana intake. Had 02-27-2019 : Creati 0.64, K 4.4, ,Mag 1.9. Had 02/19/20: Na 140 ,K 4.5 , CL 102 ,CO2 25, GLU 95. ,BUN 18 , CR 0.69 ,AST 30,ALT 27 Had 11/11/20: Na 143,K 4.5 Had 08/18/21: NA 142, K 5.3, CL 106, CO2 23, BUN 18, CR 0.67, GLU 104, AST 26, ALT 20 Given mildly increased K 5.3, reviewed list of high K foods. Already avoiding bananas, and she will cut down on whitefish and especially sports drinks. Obtain BMP, Mg. Edema [id number] R60.9 Resolved. Low Na diet. Had echo 08/09/21: normal LV size and thickness, LVEF 65-70%, grade 2 DD. trace TR, RVSP 11. Acute non- ST segment elevation myocardial infarction [id number] I21.4 On 02/02/18 prior to CABG. Continue ASA and Repatha/st atin. Peripheral arterial occlusive disease [id number] I73.9 With resolved claudicati on. Had ARTERIAL DOPPLER on 04/10/18 with normal ankle branchial index. No significan t lower extremity peripheral arterial disease detected. On examina tion - carotid bruit [id number] R09.89 Right carotid bruit. Had US, carotid artery 02/08/21 CAROTID US: Antegrade flow noted in both vertebral arteries. Mild right internal carotid artery stenosis with less than 50% diameter stenosis. Very mild left internal carotid artery stenosis with less than 15% diameter stenosis. Had carotid U/S 05/03/18: mild right ICA stenosis with <50% stenosis and very mild <15% diameter stenosis on left ICA. F/u 12 mo 04/2019. Needs to keep LDL less than 70, and HDL more than 40. Obtained carotid U/S 05/16/19: Antegrade flow noted in both vertebral arteries. Very mild left internal carotid artery stenosis with less than 15% diameter stenosis. Mild right bilateral carotid artery stenosis with less than 50% diameter stenosis. Compared to last study in 04/23, there are no changes. Continue ASA. Obtain repeat carotid U/S 02/2023. Tricuspid valve regurgitation [id number] I07.1 Mild-moder ate previously , improved to trace. Had echo 08/09/21: normal LV size and thickness, LVEF 65-70%, grade 2 DD. trace TR, RVSP 11. Had ECHO done in 02/02/18 showed EF 55% , Mild to moderate tricuspid regurgitat ion. Mild mitral valve regurgitat ion. [id number] [address]ya[address] [facility] OFFICE [facility] [place] [address] 03/02/2022 11:41:31 03/02/2022 12:32:31 Coronary arteriosclerosis [id number] I25.10 s/p CABG x 3v., 02/05/18 (ANDREW to anterior decending coronary artery, left radial artery to obtuse marginal coronary artery, reverse saphenous vein graft to second diagonal coronary artery). Had treadmill nuclear stress test (PROC) 02/05/20 Stress test: Negative stress test for ischemia. Normal LV function. Abnormal stress test. No previous study to compare. Artifact noted. Average exercise tolerance. Continue ASA, statin, Repatha. Was on metoprolol tartrate 50 mg bid but was decreased to 25 mg bid due to dizziness mid February 2018. Changed to metoprolol succinate 50 mg qd 08/01/18. Minimize/e liminate meloxicam. Hyperlipidemia [id number] E78.5 Needs to keep LDL less than 70, and HDL more than 40. Having bilateral resting leg/calf cramping, switched Atorvastat in 40 mg to Livalo 2 mg qd. Reports leg cramps only after increasing dose to Livalo 2 mg qd 06/20/18, but LDL was not well-contr olled on Livalo 2 mg dose at 108 and on 4 mg dose LDL 102. Also intolerant of atorvastat in with leg cramping. CK normal. Began rosuvastat in 10 mg qHS 06/20/18. Obtain FLP 4 wks. 07/25/18 TC: LDL: 89, CPK 117 normal. Began Repatha 140 mg SC q 2wks 06/20/18. Needs to keep LDL less than 70, and HDL more than 40 given CAD s/p CABG, and has been intolerant of statins at required doses. Increased rosuvastat in to 20 mg qHS 08/01/18. Has mild occasional muscle aches on 10 mg with normal CPK, worse with increase to 20 mg dose. Had 08/29/18: TC 179 ,TG 112 , HDL 63, LDL 94, CK 132 normal, while on rosuvastat in 20 mg . Normal K and Mg. Returned to Crestor 10 mg qHS 09/05/18 as that is maximal tolerable dose for patient, but patient is not at goal for severe CAD and moderate carotid artery stenosis. Had 01/09/19: TC 242 ,TG 229 ,HDL 51 ,LDL 145, while on rosuvastat in 10 mg, her maximally tolerated dose. Began Repatha to achieve LDL <70. On Repatha for 1 month as of 03/06/19 but patient was wrongly told by pharmacy to stop rosuvastat in since on Repatha. Resumed rosuvastat in 10 mg 03/06/19 and continue Repatha. Had 05/15/19: TC 113, TG 73, HDL 66, LDL 32. When she was off Repatha for 1 month, had 02/19/20:T C 230 ,TG 281 ,HDL 53,LDL 121. Needs to resume Repatha since not at goal of LDL <70 with CAD s/p CABG on maximally tolerated dose of rosuvastat in. For increased TG, resumed higher dose of fish oil 2 gm bid 02/26/20. Obtained FLP in 2 months back on Repatha and on higher dose of fish oil: Had LIPID 05/20/2020: CH 141 TR 118 HDL 54 LDL 63. Had LIPID 11/11/2020: TG 91,LDL 72,HDL 73.Continu e Repatha and rosuvastat in. She ran out of Repatha late 03/2021, Had 05/05/21: TC 181, TG 135, HDL 63, LDL 95, off Repatha. Was on Repatha for 3-4 weeks, then had labs:08/18: TC 167, TR 225, HDL 52, LDL 78, on maximally tolerated dose of rosuvastat in 10 mg qHS and on Repatha, with LDL now improved on Repatha but not yet at goal. Increased to fish oil 2 gm bid 08/25/21. Needs to keep LDL less than 70, and HDL more than 40 given CAD s/p CABG. Needs renewal of Repatha script with insurance approval. Began Zetia 10 mg qHS 08/25/21, for which she had increased leg cramping prompting cessation. Obtained FLP when not on Repatha:Grigsby d 10/28/21: LIPID: CHOL 241 TRIG 107 HDL 69 LDL 153 Resume Repatha with sample and needs insurance approval again as discussed with front office specialist. Increased blood pressure [id number] R03.0 Patient's blood pressure is {{well-con trolled* s omewhat well-contr olled not well-contr olled}} on present medical therapy. Patient is {{tolerati ng, without difficulty ,* having side effects with}} the current medication s. I have {{not made* made the following} } changes to the current regimen. {{ Patient is advised to maintain a blood pressure diary.*}} Patient was advised to eat a low-sodium diet (2 grams sodium or less daily). Stopped isosorbide dinitrate which she was taking once daily in PM and replaced with isosorbide mononitrat e 30 mg qd 04/18/18. Cramp in lower limb 4499 [id number] R25.2 Improved. Had ARTERIAL DOPPLER on 04/10/18 with normal ankle branchial index. No significan t lower extremity peripheral arterial disease detected. Tried switching statins, Atorvastat in to Livalo to rosuvastat in, then back to 10 mg Crestor 09/05/18. 08/29/18: TC 179 ,TG 112 , HDL 63, LDL 94, CK 132 normal. Normal K and Mg. Had 01/09/19: K 5.4, CR 0.68. Reduced daily banana intake. Had 02-27-2019 : Creati 0.64, K 4.4, ,Mag 1.9. Had 02/19/20: Na 140 ,K 4.5 , CL 102 ,CO2 25, GLU 95. ,BUN 18 , CR 0.69 ,AST 30,ALT 27 Had 11/11/20: Na 143,K 4.5 Had 08/18/21: NA 142, K 5.3, CL 106, CO2 23, BUN 18, CR 0.67, GLU 104, AST 26, ALT 20 Given mildly increased K 5.3, reviewed list of high K foods. Already avoiding bananas, and she will cut down on whitefish and especially sports drinks. Obtained 10/28/21: CMP: GL 85 BUN 20 CR 0.65 NA 141 POT 5.0 CL 104 CA 10.6 MAG 2.3 Edema [id number] R60.9 Resolved. Low Na diet. Had echo 08/09/21: normal LV size and thickness, LVEF 65-70%, grade 2 DD. trace TR, RVSP 11. Acute non- ST segment elevation myocardial infarction [id number] I21.4 On 02/02/18 prior to CABG. Continue ASA and Repatha/st atin. Peripheral arterial occlusive disease [id number] I73.9 With resolved claudicati on. Had ARTERIAL DOPPLER on 04/10/18 with normal ankle branchial index. No significan t lower extremity peripheral arterial disease detected. On examina tion - carotid bruit [id number] R09.89 Right carotid bruit. Had US, carotid artery 02/08/21 CAROTID US: Antegrade flow noted in both vertebral arteries. Mild right internal carotid artery stenosis with less than 50% diameter stenosis. Very mild left internal carotid artery stenosis with less than 15% diameter stenosis. Had carotid U/S 05/03/18: mild right ICA stenosis with <50% stenosis and very mild <15% diameter stenosis on left ICA. F/u 12 mo 04/2019. Needs to keep LDL less than 70, and HDL more than 40. Obtained carotid U/S 07/11/19: Antegrade flow noted in both vertebral arteries. Very mild left internal carotid artery stenosis with less than 15% diameter stenosis. Mild right bilateral carotid artery stenosis with less than 50% diameter stenosis. Compared to last study in 04/23, there are no changes. Continue ASA. Obtain repeat carotid U/S 02/2023. Tricuspid valve regurgitation [id number] I07.1 Mild-moder ate previously , improved to trace. Had echo 08/09/21: normal LV size and thickness, LVEF 65-70%, grade 2 DD. trace TR, RVSP 11. Had ECHO done in 02/02/18 showed EF 55% , Mild to moderate tricuspid regurgitat ion. Mild mitral valve regurgitat ion. Dyspnea on exertion 6084 5006 R06.09 Patient presents with exertional dyspnea which can be an anginal equivalent , with history of prior CABG and last stress test more than 2 years ago. Given the history, exam findings and {{high int ermediate* low}} cardiac risk factors, I {{feel* do not feel}} additional investigat ion is warranted. I have made arrangemen ts in the near future for {{an exercise stress echocardio gram to evaluate for any ischemia, structural heart disease, or exercise induced arrythmia an exercise stress nuclear test an exercise stress nuclear test (stress echo not possible due to COPD or obesity)* an exercise stress nuclear test and an echocardio gram to evaluate for any ischemia or structural heart disease a pharmacolo gic stress nuclear test due to reduced functional capacity or conduction abnormalit y cardiac catheteriz ation an echocardio gram to evaluate left ventricula r function and any structural heart disease or valvular abnormalit y}}. The procedure was discussed with the patient, and risks, benefits, and alternativ e options were explained. {{ The patient was informed about heart catheteriz ation and interventi onal procedures and agrees to proceed.}} Appropriat e labwork {{has has not*}} been performed recently, therefore I {{have not have*} } made arrangemen ts for further testing: CBC, BMP, Mg. I have asked the patient to curtail exercise and activities until our investigat ion is complete. I have {{made no made the following* }} adjustment s to the present medical regimen. {{ Patient has been started on daily aspirin.}} {{ Patient has been given a prescripti on for sublingual nitroglyce rin.}} Had treadmill nuclear stress test (PROC) 02/05/20 Stress test: Negative stress test for ischemia. Normal LV function. Abnormal stress test. No previous study to compare. Artifact noted. Average exercise tolerance. Had 10/28/21: CMP: GL 85 BUN 20 CR 0.65 NA 141 POT 5.0 CL 104 CA 10.6 MAG 2.3LIPID: CHOL 241 TRIG 107 HDL 69 LDL 153 [id number] [facility] [address] [place] [address] 06/15/2022 11:49:53 06/15/2022 12:52:40 Coronary arteriosclerosis [id number] I25.10 s/p CABG x 3v., 02/05/18 (ANDREW to anterior decending coronary artery, left radial artery to obtuse marginal coronary artery, reverse saphenous vein graft to second diagonal coronary artery). Had exercise nuclear stress test 05/24/22: Negative stress test for ischemia . Normal LV systolic function. Compared to the last study in 02/05/20, there are no changes. Exercise tolerance: Average. Had treadmill nuclear stress test (PROC) 02/05/20 Stress test: Negative stress test for ischemia. Normal LV function. Abnormal stress test. No previous study to compare. Artifact noted. Average exercise tolerance. Continue ASA, statin, Repatha. Was on metoprolol tartrate 50 mg bid but was decreased to 25 mg bid due to dizziness mid February 2018. Changed to metoprolol succinate 50 mg qd 08/01/18. Minimize/e liminate meloxicam. Began lisinopril 10 mg qd 06/15/22. Obtain CMP, Mg. Hyperlipidemia [id number] E78.5 Needs to keep LDL less than 70, and HDL more than 40. Having bilateral resting leg/calf cramping, switched Atorvastat in 40 mg to Livalo 2 mg qd. Reports leg cramps only after increasing dose to Livalo 2 mg qd 06/20/18, but LDL was not well-contr olled on Livalo 2 mg dose at 108 and on 4 mg dose LDL 102. Also intolerant of atorvastat in with leg cramping. CK normal. Began rosuvastat in 10 mg qHS 06/20/18. Obtain FLP 4 wks. 07/25/18 TC: LDL: 89, CPK 117 normal. Began Repatha 140 mg SC q 2wks 06/20/18. Needs to keep LDL less than 70, and HDL more than 40 given CAD s/p CABG, and has been intolerant of statins at required doses. Increased rosuvastat in to 20 mg qHS 08/01/18. Has mild occasional muscle aches on 10 mg with normal CPK, worse with increase to 20 mg dose. Had 08/29/18: TC 179 ,TG 112 , HDL 63, LDL 94, CK 132 normal, while on rosuvastat in 20 mg . Normal K and Mg. Returned to Crestor 10 mg qHS 09/05/18 as that is maximal tolerable dose for patient, but patient is not at goal for severe CAD and moderate carotid artery stenosis. Had 01/09/19: TC 242 ,TG 229 ,HDL 51 ,LDL 145, while on rosuvastat in 10 mg, her maximally tolerated dose. Began Repatha to achieve LDL <70. On Repatha for 1 month as of 03/06/19 but patient was wrongly told by pharmacy to stop rosuvastat in since on Repatha. Resumed rosuvastat in 10 mg 03/06/19 and continue Repatha. Had 05/15/19: TC 113, TG 73, HDL 66, LDL 32. When she was off Repatha for 1 month, had 02/19/20:T C 230 ,TG 281 ,HDL 53,LDL 121. Needs to resume Repatha since not at goal of LDL <70 with CAD s/p CABG on maximally tolerated dose of rosuvastat in. For increased TG, resumed higher dose of fish oil 2 gm bid 02/26/20. Obtained FLP in 2 months back on Repatha and on higher dose of fish oil: Had LIPID 05/20/2020: CH 141 TR 118 HDL 54 LDL 63. Had LIPID 11/11/2020: TG 91,LDL 72,HDL 73.Continu e Repatha and rosuvastat in. She ran out of Repatha late 03/2021, Had 05/05/21: TC 181, TG 135, HDL 63, LDL 95, off Repatha. Was on Repatha for 3-4 weeks, then had labs:08/18: TC 167, TR 225, HDL 52, LDL 78, on maximally tolerated dose of rosuvastat in 10 mg qHS and on Repatha, with LDL now improved on Repatha but not yet at goal. Increased to fish oil 2 gm bid 08/25/21. Needs to keep LDL less than 70, and HDL more than 40 given CAD s/p CABG. Began Zetia 10 mg qHS 08/25/21, for which she had increased leg cramping prompting cessation. Insurance denied Vascepa and she continues on OTC fish oil. Obtained FLP when not on Repatha:Grigsby d 10/28/21: LIPID: CHOL 241 TRIG 107 HDL 69 LDL 153 She began Repatha early 05/2022. Obtain FLP, CMP, Mg. Increased blood pressure 89048520 R03.0 Patient's blood pressure is {{well-con trolled* s omewhat well-contr olled not well-contr olled}} on present medical therapy. Patient is {{tolerati ng, without difficulty ,* having side effects with}} the current medication s. I have {{not made* made the following} } changes to the current regimen. {{ Patient is advised to maintain a blood pressure diary.*}} Patient was advised to eat a low-sodium diet (2 grams sodium or less daily). Stopped isosorbide dinitrate which she was taking once daily in PM and replaced with isosorbide mononitrat e 30 mg qd 04/18/18. Cramp in lower limb 4499 39317 R25.2 Improved. Had ARTERIAL DOPPLER on 04/10/18 with normal ankle branchial index. No significan t lower extremity peripheral arterial disease detected. Tried switching statins, Atorvastat in to Livalo to rosuvastat in, then back to 10 mg Crestor 09/05/18. 08/29/18: TC 179 ,TG 112 , HDL 63, LDL 94, CK 132 normal. Normal K and Mg. Had 01/09/19: K 5.4, CR 0.68. Reduced daily banana intake. Had 02-27-2019 : Creati 0.64, K 4.4, ,Mag 1.9. Had 02/19/20: Na 140 ,K 4.5 , CL 102 ,CO2 25, GLU 95. ,BUN 18 , CR 0.69 ,AST 30,ALT 27 Had 11/11/20: Na 143,K 4.5 Had 08/18/21: NA 142, K 5.3, CL 106, CO2 23, BUN 18, CR 0.67, GLU 104, AST 26, ALT 20 Given mildly increased K 5.3, reviewed list of high K foods. Already avoiding bananas, and she will cut down on whitefish and especially sports drinks. Obtained 10/28/21: CMP: GL 85 BUN 20 CR 0.65 NA 141 POT 5.0 CL 104 CA 10.6 MAG 2.3 Edema [id number] R60.9 Resolved. Low Na diet. Had echo 08/09/21: normal LV size and thickness, LVEF 65-70%, grade 2 DD. trace TR, RVSP 11. Acute non- ST segment elevation myocardial infarction [id number] I21.4 On 02/02/18 prior to CABG. Continue ASA and Repatha/st atin. Peripheral arterial occlusive disease [id number] I73.9 With resolved claudicati on. Had ARTERIAL DOPPLER on 04/10/18 with normal ankle branchial index. No significan t lower extremity peripheral arterial disease detected. On examina tion - carotid bruit [id number] R09.89 Right carotid bruit. Had US, carotid artery 02/08/21 CAROTID US: Antegrade flow noted in both vertebral arteries. Mild right internal carotid artery stenosis with less than 50% diameter stenosis. Very mild left internal carotid artery stenosis with less than 15% diameter stenosis. Had carotid U/S 05/03/18: mild right ICA stenosis with <50% stenosis and very mild <15% diameter stenosis on left ICA. F/u 12 mo 04/2019. Needs to keep LDL less than 70, and HDL more than 40. Obtained carotid U/S 05/16/19: Antegrade flow noted in both vertebral arteries. Very mild left internal carotid artery stenosis with less than 15% diameter stenosis. Mild right bilateral carotid artery stenosis with less than 50% diameter stenosis. Compared to last study in 04/23, there are no changes. Continue ASA. Obtain repeat carotid U/S 02/2023. Tricuspid valve regurgitation [id number] I07.1 Mild-moder ate previously , improved to trace. Had echo 08/09/21: normal LV size and thickness, LVEF 65-70%, grade 2 DD. trace TR, RVSP 11. Had ECHO done in 02/02/18 showed EF 55% , Mild to moderate tricuspid regurgitat ion. Mild mitral valve regurgitat ion. Dyspnea on exertion 6084 5006 R06.09 Stable. Had exercise nuclear stress test 05/24/22: Negative stress test for ischemia . Normal LV systolic function. Compared to the last study in 02/05/20, there are no changes. Exercise tolerance: Average. Had treadmill nuclear stress test (PROC) 02/05/20 Stress test: Negative stress test for ischemia. Normal LV function. Abnormal stress test. No previous study to compare. Artifact noted. Average exercise tolerance. Had 10/28/21: CMP: GL 85 BUN 20 CR 0.65 NA 141 POT 5.0 CL 104 CA 10.6 MAG 2.3LIPID: CHOL 241 TRIG 107 HDL 69 LDL 153 [address] [facility] [address] [place] [address] 12/14/2022 11:53:49 12/14/2022 13:52:46 Coronary arteriosclerosis [id number] I25.10 s/p CABG x 3v., 02/05/18 (ANDREW to anterior decending coronary artery, left radial artery to obtuse marginal coronary artery, reverse saphenous vein graft to second diagonal coronary artery). Had exercise nuclear stress test 05/24/22: Negative stress test for ischemia . Normal LV systolic function. Compared to the last study in 02/05/20, there are no changes. Exercise tolerance: Average. Had treadmill nuclear stress test (PROC) 02/05/20 Stress test: Negative stress test for ischemia. Normal LV function. Abnormal stress test. No previous study to compare. Artifact noted. Average exercise tolerance. Continue ASA, statin, Repatha. Was on metoprolol tartrate 50 mg bid but was decreased to 25 mg bid due to dizziness mid February 2018. Changed to metoprolol succinate 50 mg qd 08/01/18. Minimize/e liminate meloxicam. Began lisinopril 10 mg qd 06/15/22. Had 11/01/2022 :CMP-GL 94 BUN 23 CR 0.65 NA 143 K 4.3 CA 9.7LIPID-C HOL 147 TRIG 110 HDL 65 LDL 62MAG-2.1 Hyperlipidemia [id number] E78.5 Needs to keep LDL less than 70, and HDL more than 40. Having bilateral resting leg/calf cramping, switched Atorvastat in 40 mg to Livalo 2 mg qd. Reports leg cramps only after increasing dose to Livalo 2 mg qd 06/20/18, but LDL was not well-contr olled on Livalo 2 mg dose at 108 and on 4 mg dose LDL 102. Also intolerant of atorvastat in with leg cramping. CK normal. Began rosuvastat in 10 mg qHS 06/20/18. Obtain FLP 4 wks. 07/25/18 TC: LDL: 89, CPK 117 normal. Began Repatha 140 mg SC q 2wks 06/20/18. Needs to keep LDL less than 70, and HDL more than 40 given CAD s/p CABG, and has been intolerant of statins at required doses. Increased rosuvastat in to 20 mg qHS 08/01/18. Has mild occasional muscle aches on 10 mg with normal CPK, worse with increase to 20 mg dose. Had 08/29/18: TC 179 ,TG 112 , HDL 63, LDL 94, CK 132 normal, while on rosuvastat in 20 mg . Normal K and Mg. Returned to Crestor 10 mg qHS 09/05/18 as that is maximal tolerable dose for patient, but patient is not at goal for severe CAD and moderate carotid artery stenosis. Had 01/09/19: TC 242 ,TG 229 ,HDL 51 ,LDL 145, while on rosuvastat in 10 mg, her maximally tolerated dose. Began Repatha to achieve LDL <70. On Repatha for 1 month as of 03/06/19 but patient was wrongly told by pharmacy to stop rosuvastat in since on Repatha. Resumed rosuvastat in 10 mg 03/06/19 and continue Repatha. Had 05/15/19: TC 113, TG 73, HDL 66, LDL 32. When she was off Repatha for 1 month, had 02/19/20:T C 230 ,TG 281 ,HDL 53,LDL 121. Needs to resume Repatha since not at goal of LDL <70 with CAD s/p CABG on maximally tolerated dose of rosuvastat in. For increased TG, resumed higher dose of fish oil 2 gm bid 02/26/20. Obtained FLP in 2 months back on Repatha and on higher dose of fish oil: Had LIPID 05/20/2020: CH 141 TR 118 HDL 54 LDL 63. Had LIPID 11/11/2020: TG 91,LDL 72,HDL 73.Continu e Repatha and rosuvastat in. She ran out of Repatha late 03/2021, Had 05/05/21: TC 181, TG 135, HDL 63, LDL 95, off Repatha. Was on Repatha for 3-4 weeks, then had labs:08/18: TC 167, TR 225, HDL 52, LDL 78, on maximally tolerated dose of rosuvastat in 10 mg qHS and on Repatha, with LDL now improved on Repatha but not yet at goal. Increased to fish oil 2 gm bid 08/25/21. Needs to keep LDL less than 70, and HDL more than 40 given CAD s/p CABG. Began Zetia 10 mg qHS 08/25/21, for which she had increased leg cramping prompting cessation. Insurance denied Vascepa and she continues on OTC fish oil. Obtained FLP when not on Repatha:Grigsby d 10/28/21: LIPID: CHOL 241 TRIG 107 HDL 69 LDL 153 She began Repatha early 05/2022. Had 11/01/2022 :CMP-GL 94 BUN 23 CR 0.65 NA 143 K 4.3 CA 9.7LIPID-C HOL 147 TRIG 110 HDL 65 LDL 62MAG-2.1 Increased blood pressure [id number] R03.0 Patient's blood pressure is {{well-con trolled* s omewhat well-contr olled not well-contr olled}} on present medical therapy. Patient is {{tolerati ng, without difficulty ,* having side effects with}} the current medication s. I have {{not made* made the following} } changes to the current regimen. {{ Patient is advised to maintain a blood pressure diary.*}} Patient was advised to eat a low-sodium diet (2 grams sodium or less daily). Stopped isosorbide dinitrate which she was taking once daily in PM and replaced with isosorbide mononitrat e 30 mg qd 04/18/18. Cramp in lower limb 4499 11595 R25.2 Improved. Had ARTERIAL DOPPLER on 04/10/18 with normal ankle branchial index. No significan t lower extremity peripheral arterial disease detected. Tried switching statins, Atorvastat in to Livalo to rosuvastat in, then back to 10 mg Crestor 09/05/18. 08/29/18: TC 179 ,TG 112 , HDL 63, LDL 94, CK 132 normal. Normal K and Mg. Had 01/09/19: K 5.4, CR 0.68. Reduced daily banana intake. Had 02-27-2019 : Creati 0.64, K 4.4, ,Mag 1.9. Had 02/19/20: Na 140 ,K 4.5 , CL 102 ,CO2 25, GLU 95. ,BUN 18 , CR 0.69 ,AST 30,ALT 27 Had 11/11/20: Na 143,K 4.5 Had 08/18/21: NA 142, K 5.3, CL 106, CO2 23, BUN 18, CR 0.67, GLU 104, AST 26, ALT 20 Given mildly increased K 5.3, reviewed list of high K foods. Already avoiding bananas, and she will cut down on whitefish and especially sports drinks. Obtained 10/28/21: CMP: GL 85 BUN 20 CR 0.65 NA 141 POT 5.0 CL 104 CA 10.6 MAG 2.3 Edema [id number] R60.9 Resolved. Low Na diet. Had echo 08/09/21: normal LV size and thickness, LVEF 65-70%, grade 2 DD. trace TR, RVSP 11. Acute non- ST segment elevation myocardial infarction [id number] I21.4 On 02/02/18 prior to CABG. Continue ASA and Repatha/st atin. Peripheral arterial occlusive disease [id number] I73.9 With resolved claudicati on. Had ARTERIAL DOPPLER on 04/10/18 with normal ankle branchial index. No significan t lower extremity peripheral arterial disease detected. On examina tion - carotid bruit [id number] R09.89 Right carotid bruit. Had US, carotid artery 02/08/21 CAROTID US: Antegrade flow noted in both vertebral arteries. Mild right internal carotid artery stenosis with less than 50% diameter stenosis. Very mild left internal carotid artery stenosis with less than 15% diameter stenosis. Had carotid U/S 05/03/18: mild right ICA stenosis with <50% stenosis and very mild <15% diameter stenosis on left ICA. F/u 12 mo 04/2019. Needs to keep LDL less than 70, and HDL more than 40. Obtained carotid U/S 05/16/19: Antegrade flow noted in both vertebral arteries. Very mild left internal carotid artery stenosis with less than 15% diameter stenosis. Mild right bilateral carotid artery stenosis with less than 50% diameter stenosis. Compared to last study in 04/23, there are no changes. Continue ASA. Obtain repeat carotid U/S. Tricuspid valve regurgitation [id number] I07.1 Mild-moder ate previously , improved to trace. Had echo 08/09/21: normal LV size and thickness, LVEF 65-70%, grade 2 DD. trace TR, RVSP 11. Had ECHO done in 02/02/18 showed EF 55% , Mild to moderate tricuspid regurgitat ion. Mild mitral valve regurgitat ion. Dyspnea on exertion 6084 5006 R06.09 Stable. Had exercise nuclear stress test 05/24/22: Negative stress test for ischemia . Normal LV systolic function. Compared to the last study in 02/05/20, there are no changes. Exercise tolerance: Average. Had treadmill nuclear stress test (PROC) 02/05/20 Stress test: Negative stress test for ischemia. Normal LV function. Abnormal stress test. No previous study to compare. Artifact noted. Average exercise tolerance. Had 10/28/21: CMP: GL 85 BUN 20 CR 0.65 NA 141 POT 5.0 CL 104 CA 10.6 MAG 2.3LIPID: CHOL 241 TRIG 107 HDL 69 LDL 153 Health Concerns Section Related Observation LastModified by Organization Detai ls LastModified Time None Recorded Concern Status LastModified by Organization Details LastModified Time None Recorded Advance Directives Directive None Recorded Payers Encounter Date Sequence Insurance Name Policy Number Policy Will Covered Member ID Will Member ID Guarantor Name 08/25/2021 1 [facility] [facility] [employer] [id number] Jagdeep Barr [id number] Jagdeep Barr 11/03/2021 1 [employer] [id number] Jagdeep Barr [id number] Jagdeep Barr 03/02/2022 1 [employer] [id number] Jagdeep Barr [id number] Jagdeep Barr 06/15/2022 1 [facility] Going [employer] [id number] Jagdeep Barr [id number] Jagdeep Barr 12/14/2022 1 [facility] Going [employer] [id number] Jagdeep Barr [id number] Jagdeep Barr Notes Date Note Type Note Provider Name and Address Organization Details Recorded Time 08/25/2021 text/html 08/25/21 CC: Chest pain 61 year-old woman with h/o coronary artery disease s/p CABG x3 (02/05/18), dyslipidemia, cancer (lymphoma, s/p chemo 2004), family history of premature NE, is here for follow up coronary artery [...] AM and PM. Previously,She had NSTEMI at [facility] on 02/02/18 and was transferred to [facility] where she had CABG x 3 on [...] TC 113, TG 73, HDL 66, LDL [id number] Glucose 117,BUN 23,Creati 0.64,Na 141,K 4.4,Cl 103,CO2 23,Ca 9.5,Mag 1.9001/09/19: Na 143 ,K 5.4, CL 104 ,CO2 24, GLU 94 , BUN 18 , CR 0.68, AST 25 ,ALT : TC 242 ,TG 229 ,HDL 51 ,LDL 145 ,CK : TC 179 ,TG 112 , HDL 63, LDL 94,CK 5061108/29/18: NA 145 ,K 4.9 ,CL 103, CO2 [...] tolerance. DONALD Velázquez - [facility] 08/25/2021 12:53:46 11/03/2021 text/html 11/03/21 CC: Chest pain 61 year-old woman with h/o coronary artery disease s/p CABG x3 (02/05/18), dyslipidemia, cancer (lymphoma, s/p chemo 2004), family history of premature NE, is here for follow up coronary artery [...] AM and PM. Previously,She had NSTEMI at [facility] on 02/02/18 and was transferred to [facility] where she had CABG x 3 on [...] TSH 0.707. MG 2.1 lipid panel, blood 99-79-122844/06/21:Na 143,K 4.5,Cl 106,CO2 22,GLU 87,BUN 18,Cr 0.74,AST 29,ALT 22,TC 162,TG 91,LDL 72,HDL 73.lipid panel, blood 05-20-2020 LIPID 05/20/2020 CH 141 TR 118 HDL 54 LDL 63 CMP, serum or plasma 02-19-2020 02/19/20: Na 140 ,K 4.5 , CL 102 ,CO2 25, GLU 95. ,BUN 18 , CR 0.69 ,AST 30,ALT 27 05/15/19: TC 113, TG 73, HDL 66, LDL 5064-88-5948 Glucose 117,BUN 23,Creati 0.64,Na 141,K 4.4,Cl 103,CO2 23,Ca 9.5,Mag 1.903: Na 143 ,K 5.4, CL 104 ,CO2 24, GLU 94 , BUN 18 , CR 0.68, AST 25 ,ALT : TC 242 ,TG 229 ,HDL 51 ,LDL 145 ,CK : TC 179 ,TG 112 , HDL 63, LDL 94,CK 2282808/29/18: NA 145 ,K 4.9 ,CL 103, CO2 [...] compare. Artifact noted. Average exercise tolerance. Ayaan Wiggins [place], [place] - [facility] 11/03/2021 13:10:38 03/02/2022 text/html 03/02/22 CC: chest pain 61 year-old woman with h/o coronary artery disease s/p CABG x3 (02/05/18), dyslipidemia, cancer (lymphoma, s/p chemo 2004), family history of premature NE, is here for follow up coronary artery [...] AM and PM. Previously,She had NSTEMI at [facility] on 02/02/18 and was transferred to [facility] where she had CABG x 3 on [...] TSH 0.707. MG 2.1 lipid panel, blood [id number]/06/21:Na 143,K 4.5,Cl 106,CO2 22,GLU 87,BUN 18,Cr 0.74,AST 29,ALT 22,TC 162,TG 91,LDL 72,HDL 73.lipid panel, blood 05-20-2020 LIPID 05/20/2020 CH 141 TR 118 HDL 54 LDL 63 CMP, serum or plasma 02-19-2020 02/19/20: Na 140 ,K 4.5 , CL 102 ,CO2 25, GLU 95. ,BUN 18 , CR 0.69 ,AST 30,ALT 27 05/15/19: TC 113, TG 73, HDL 66, LDL 8466-85-6937 Glucose 117,BUN 23,Creati 0.64,Na 141,K 4.4,Cl 103,CO2 23,Ca 9.5,Mag 1.903: Na 143 ,K 5.4, CL 104 ,CO2 24, GLU 94 , BUN 18 , CR 0.68, AST 25 ,ALT : TC 242 ,TG 229 ,HDL 51 ,LDL 145 ,CK : TC 179 ,TG 112 , HDL 63, LDL 94,CK 93369: NA 145 ,K 4.9 ,CL 103, CO2 22 , GLU 91 , BUN 14 , CR 0.53 ,AST 34 ,ALT 21, Mg 2.209 TC: 171, TR: 141, HDL: 54, LDL: : M.209: NA: 142, K: 4.8, CL: 106, CO2: 19, GL: 94, BUN: 19, AST: 28, ALT: 20, CR: 0.: M.208: NA: 142, K: 5.1, CL: 106, CO2: 22, GLU: 95, BUN: 18, AST: 26, ALT: 18, CR: 0.: TR: 162, TC: 188, HDL: 54, LDL: 16623: CK: 19926: TC 213, TG 266, HDL 52, LDL 72734 : CK 654 CBC: WBC 9.3, RBC [...] WBC 13, HGB 10.2, HCT 31.5, PLT 36415: PT 12, INR 1.0, PTT 29 US, [...] tolerance. DONALD Velázquez - [facility] 03/02/2022 12:28:00 06/15/2022 text/html 06/15/22 CC: chest pain 61 year-old woman with h/o coronary artery disease s/p CABG x3 (02/05/18), dyslipidemia, cancer (lymphoma, s/p chemo 2004), family history of premature NE, is here for follow up coronary artery [...] AM and PM. Previously,She had NSTEMI at [facility] on 02/02/18 and was transferred to [facility] where she had CABG x 3 on [...] TC 113, TG 73, HDL 66, LDL [phone] Glucose 117,BUN 23,Creati 0.64,Na 141,K 4.4,Cl 103,CO2 23,Ca 9.5,Mag 1.9001/09/19: Na 143 ,K 5.4, CL 104 ,CO2 24, GLU 94 , BUN 18 , CR 0.68, AST 25 ,ALT : TC 242 ,TG 229 ,HDL 51 ,LDL 145 ,CK : TC 179 ,TG 112 , HDL 63, LDL 94,CK 8095708/29/18: NA 145 ,K 4.9 ,CL 103, CO2 [...] TR: 162, TC: 188, HDL: 54, LDL: 67352: CK: 9602605/11/18: TC 213, TG 266, HDL 52, LDL 17371 : CK 654 CBC: WBC 9.3, RBC [...] 29, GL 99, BUN 18, CR 0.60,calcium 8.6002/01/2018: WBC 13, HGB 10.2, HCT 31.5, PLT 34405: PT 12, INR 1.0, PTT 29 US, [...] compare. Artifact noted. Average exercise tolerance. [place] [facility] 06/15/2022 12:50:25 12/14/2022 text/html 12/14/22 CC: chest pain 62 year-old woman with h/o coronary artery disease s/p CABG x3 (02/05/18), dyslipidemia, cancer (lymphoma, s/p chemo 2004), family history of premature NE, is here for follow up coronary artery [...] AM and PM. Previously,She had NSTEMI at [facility] on 02/02/18 and was transferred to [facility] where she had CABG x 3 on [...] TSH 0.707. MG 2.1 lipid panel, blood 88-77-017505/06/21:Na 143,K 4.5,Cl 106,CO2 22,GLU 87,BUN 18,Cr 0.74,AST 29,ALT 22,TC 162,TG 91,LDL 72,HDL 73.lipid panel, blood 05-20-2020 LIPID 05/20/2020 CH 141 TR 118 HDL 54 LDL 63 CMP, serum or plasma 02-19-2020 02/19/20: Na 140 ,K 4.5 , CL 102 ,CO2 25, GLU 95. ,BUN 18 , CR 0.69 ,AST 30,ALT 27 05/15/19: TC 113, TG 73, HDL 66, LDL 8610-09-1044 Glucose 117,BUN 23,Creati 0.64,Na 141,K 4.4,Cl 103,CO2 23,Ca 9.5,Mag 1.903: Na 143 ,K 5.4, CL 104 ,CO2 24, GLU 94 , BUN 18 , CR 0.68, AST 25 ,ALT : TC 242 ,TG 229 ,HDL 51 ,LDL 145 ,CK : TC 179 ,TG 112 , HDL 63, LDL 94,CK 7119308/29/18: NA 145 ,K 4.9 ,CL 103, CO2 [...] TR: 162, TC: 188, HDL: 54, LDL: 75038: CK: 68275: TC 213, TG 266, HDL 52, LDL 23506 : CK 654 CBC: WBC 9.3, RBC [...] WBC 13, HGB 10.2, HCT 31.5, PLT 62045: PT 12, INR 1.0, PTT 29 US, [...]
--- OUTSIDE RECORDS SUMMARY | 2025-01-15 12:21 | XMS_ITS | Encounter Summary ---
Author Organization [facility] Address 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 Gender Identity Not on file Sexual Orientation [...] 9:42 AM CDT Wallace Anthony MD HEMATOLOGY ORDERABLES Edited Performing Organization Address [facility] Phone Number INTERFACE SYSTEM Refer to clinic/hospital [...] 9:42 AM CDT Wallace Anthony MD HEMATOLOGY ORDERABLES Edited Performing Organization Address [facility] Phone Number INTERFACE SYSTEM Refer to clinic/hospital [...] is available on the [facility] Intranet at: [email or web address] Select: Lab Policies and Procedures Select: Reference Ranges - GFR 08/15/2007 9:42 AM CDT Wallace Anthony MD CHEMISTRY ORDERABLES Edited INTERFACE SYSTEM Refer to clinic/hospital department documented in this encounter Visit Diagnoses Diagnosis Other malignant lymphomas, unspecified site, extranodal and solid organ sites (CMS/HCC)- Primary Other malignant lymphomas, unspecified site, extranodal and solid organ sites documented in this encounter Care Teams Doormaker Relationship Specialty [place] [address] [place] [address] PCP - General 07/14/04 documented as of this encounter
--- OUTSIDE RECORDS SUMMARY | 2025-01-15 12:21 | XMS_ITS | Encounter Summary ---
Author Organization [facility] Address [address] [place] [address] Care Team Providers Care Combination Machine Tool Setter Name Role Phone Liberty Hernandez MD Primary Care Provider [phone] Encounter Details Date Type Department Care Team (Latest Contact Info) Description 12/11/2004 Outpatient Historical HIS [facility] ANIKA Meyer, Donell Roche MD NO ADDRESS ON FILE ENLARGEMENT LYMPH NODES (Primary Dx) Social History Tobacco Use Types Packs/Day Years Used Date Smoking Tobacco: Never Assessed Comments Unknown Sex and Gender Information Value Date Recorded Sex Assigned at Not on file Legal Sex Female 5:10 AM RUBBER TURNER Gender Identity Not on file Sexual Orientation Not on file documented as of this encounter Plan of Treatment Not on file documented as of this encounter Procedures Procedure Name Priority Date/Time Associated Diagnosis Comments AMELIA PANEL Routine 12/11/2004 11:57 AM RUBBER TURNER HEPATITIS B SURFACE ANTIGEN Routine 12/11/2004 11:57 AM RUBBER TURNER BARTONELLA AB IGG/IGM W REFLEX TITER Routine 12/11/2004 11:57 AM RUBBER TURNER RPR Routine 12/11/2004 11:57 AM RUBBER TURNER RHEUMATOID FACTOR Routine 12/11/2004 11: 57 AM RUBBER TURNER COMPLEMENT C3 Routine 12/11/2004 11:57 AM RUBBER TURNER COMPLEMENT C4 Routine 12/11/2004 11:57 AM RUBBER TURNER TSH Routine 12/11/2004 11:57 AM RUBBER TURNER LACTATE DEHYDROGENASE Routine 12/11/2004 11:57 AM RUBBER TURNER documented in this encounter Results * TSH (12/11/2004 11:57 AM RUBBER TURNER) TSH 0.89 0.27 - 4.20 uU/mL INTERFACE SYSTEM 12/11/2004 11:5 7 AM RUBBER TURNER Donell Meyer MD CHEMISTRY ORDERABLES Final Result Performing Organization Address [facility] Phone Number INTERFACE SYSTEM Refer to clinic/hospital department * LACTATE DEHYDROGENASE (12/11/2004 11:57 AM RUBBER TURNER) LD (LACTATE DEHYDROGENASE) 189 135 - 214 U/L INTERFACE SYSTEM 12/11/2004 11:5 7 AM RUBBER TURNER Donell Meyer MD CHEMISTRY ORDERABLES Final Result Performing Organization Address [facility] Phone Number INTERFACE SYSTEM Refer to clinic/hospital department * COMPLEMENT C4 (12/11/2004 11:57 AM RUBBER TURNER) COMPLEMENT C4 23 16 - 47 mg/dL INTERFACE SYSTEM Comment: Lab test performed by: [facility] [id number] [place] [address] MARQUISE LAWSON MD 12/11/2004 11:5 7 AM RUBBER TURNER Donlel Meyer MD CHEMISTRY ORDERABLES Final Result Performing Organization Address [facility] Phone Number INTERFACE SYSTEM Refer to clinic/hospital department * COMPLEMENT C3 (12/11/2004 11:57 AM RUBBER TURNER) Pathologist [facility] COMPLEMENT C3 118 90 - 180 mg/dL INTERFACE SYSTEM Comment: Lab test performed by: [facility] [id number] [place] [address] MARQUISE LAWSON MD 12/11/2004 11:5 7 AM RUBBER TURNER Donell Meyer MD CHEMISTRY ORDERABLES Final Result INTERFACE SYSTEM Refer to clinic/hospital department * AMELIA PANEL (12/11/2004 11:57 AM RUBBER TURNER) DNA AUTOABS DOUBLE STRANDED <30 IU/mL INTERFACE SYSTEM Comment: IU/ML INTERPRETATION < 30 NEGATIVE 30-60 LOW POSITIVE 61-200 POSITIVE > 200 STRONG POSITIVE Lab test performed by: [place] [address] MARQUISE LAWSON MD SCLERODERMA AB SCL 70 <1.00 Index INTERFACE SYSTEM Comment: REFERENCE RANGE INDEX VALUES < OR = 1.00 = NEGATIVE INDEX VALUES > 1.00 = POSITIVE Lab test performed by: [place] [address] MARQUISE LAWSON MD NILES ABS, SM AB <1.00 Index INTER FACE SYSTEM Comment: REFERENCE RANGE INDEX VALUES < OR = 1.00 = NEGATIVE INDEX VALUES > 1.00 = POSITIVE THE PRESENCE OF SM ANTIBODIES IS HIGHLY SPECIFIC FOR SLE. SM ANTIBODIES ARE PRESENT IN 30% OF SLE PATIENTS. NILES ABS, SM/ELEMENTARY CLASSROOM TEACHER AB <1.00 Index I NTERFACE SYSTEM Comment: REFERENCE RANGE INDEX VALUES < OR = 1.00 = NEGATIVE INDEX VALUES > 1.00 = POSITIVE ELEMENTARY CLASSROOM TEACHER ANTIBODIES ARE FOUND IN MIXED CONNECTIVE TISSUE DISEASE (MCTD), SLE, RA, SJOGREN'S SYNDROME, PROGRESSIVE SYSTEMIC SCLEROSIS, AND DRUG INDUCED LE. THE PRESENCE OF ELEMENTARY CLASSROOM TEACHER ANTIBODIES AND THE ABSENCE OF SM AND DS DNA ANTIBODIES STRONGLY SUGGESTS MCTD, WHILE THE ABSENCE OF ELEMENTARY CLASSROOM TEACHER USUALLY RULES OUT MCTD. Lab test performed by: [facility] [address] MARQUISE LAWSON MD SJOGRENS ABS (SSA) <1.00 Index I NTERFACE SYSTEM Comment: REFERENCE RANGE INDEX VALUES < OR = 1.00 = NEGATIVE INDEX VALUES > 1.00 = POSITIVE SJOGRENS ABS (SSB) <1.00 Index I NTERFACE SYSTEM Comment: REFERENCE RANGE INDEX VALUES < OR = 1.00 = NEGATIVE INDEX VALUES > 1.00 = POSITIVE ANTIBODIES TO SSA (RO) AND SSB (LA) ARE OBSERVED WITH THE HIGHEST FREQUENCY IN SJOGREN'S SYNDROME, ALTHOUGH THESE ANTIBODIES ARE ALSO FOUND IN A SIGNIFICANT PERCENTAGE OF PATIENTS WITH SLE. Lab test performed by: [facility] [address] MARQUISE LAWSON MD AMELIA SCREEN NEGATIVE NEGATIVE INTERFACE SYSTEM Comment: Lab test performed by: [facility] [address] [place] [address] MARQUISE LAWSON MD 12/11/2004 11:5 7 AM RUBBER TURNER Donell Meyer MD CHEMISTRY ORDERABLES Final Result INTERFACE SYSTEM Refer to clinic/hospital department * BARTONELLA AB IGG/IGM W REFLEX TITER (12/11/2004 11:57 AM RUBBER TURNER) [facility] B. HENSELAE IGG SCREEN NEGATIVE INTERFACE SYSTEM Comment: Reference Range: NEGATIVE Lab test performed by: [facility] [place] [address] Pj BUTLER MD BARTONELLA HENSELAE IGG TITER Not Performed Titer INTERFACE SYSTEM Comment: Reference Range: <1:64 TNP-Screening test negative. Titer not performed. Lab test performed by: [facility] [place] [place] [address]Salome BUTLER MD B. LEUNG IGG SCREEN NEGATIVE INTERFACE SYSTEM Comment: Reference Range: NEGATIVE Lab test performed by: [facility]/[facility] [place] [address] Pj BUTLER MD BARTONELLA LEUNG IGG TITER Not Performed Titer INTERFACE SYSTEM Comment: Reference Range: <1:64 TNP-Screening test negative. Titer not performed. Reference Range: <1:64 TNP-Screening test negative. Titer not performed. Lab test performed by: [facility] [place] [address]Salome BUTLER MD B. HENSELAE IGM SCREEN NEGATIVE INTERFACE SYSTEM Comment: Reference Range: NEGATIVE Lab test performed by: [facility]ITALColl[facility] [place] [place] [address]Salome BUTLER MD BARTONELLA HENSELAE IGM TITER Not Performed Titer INTERFACE SYSTEM Comment: Reference Range: <1:64 TNP-Screening test negative. Titer not performed. Reference Range: <1:64 TNP-Screening test negative. Titer not performed. Reference Range: <1:16 TNP-Screening test negative. Titer not performed. Lab test performed by: [employer] [address] [place] [address] Pj BUTLER MD B. LEUNG IGM SCREEN NEGATIVE INTERFACE SYSTEM Comment: Reference Range: NEGATIVE Lab test performed by: [employer] [address] [place] [address] Pj BUTLER MD BARTONELLA LEUNG IGM TITER Not Performed Titer INTERFACE SYSTEM Comment: Reference Range: <1:64 TNP-Screening test negative. Titer not performed. Reference Range: <1:64 TNP-Screening test negative. Titer not performed. Reference Range: <1:16 TNP-Screening test negative. Titer not performed. Reference Range: <1:16 TNP-Screening test negative. Titer not performed. Demonstration [...] developed and its performance characteristics determined by [employer]. It has not been cleared or approved by the U.S. Food and Drug Administration. The FDA has determined that such clearance or approval is not necessary. Performance characteristics refer to the analytical performance of the test. Lab test performed by: [employer] [address] [place] [address] Pj BUTLER MD 12/11/2004 11:5 7 AM RUBBER TURNER Donell Meyer MD CHEMISTRY ORDERABLES Final Result Performing Organization Address [facility] de Phone Number INTERFACE SYSTEM Refer to clinic/hospital department * RPR (12/11/2004 11:57 AM RUBBER TURNER) RPR NON-REACT SHONDA NON-REACT SHONDA INTERFACE SYSTEM Comment: Lab test performed by: [facility] [address]Audrey LAWSON MD 12/11/2004 11:5 7 AM RUBBER TURNER Donell Meyer MD CHEMISTRY ORDERABLES Final Result Performing Organization Address [facility] Phone Number INTERFACE SYSTEM Refer to clinic/hospital department * RHEUMATOID FACTOR (12/11/2004 11:57 AM RUBBER TURNER) RHEUMATOID FACTOR 6 <14 IU/mL IN TERFACE SYSTEM Comment: Lab test performed by: [facility] [address]Audrey LAWSON MD 12/11/2004 11:5 7 AM RUBBER TURNER Donell Meyer MD CHEMISTRY ORDERABLES Final Result Performing Organization Address [facility] Phone Number INTERFACE SYSTEM Refer to clinic/hospital department * HEPATITIS B SURFACE ANTIGEN (12/11/2004 11:57 AM RUBBER TURNER) HEPATITIS B SURFACE AG NON-REACT SHONDA NON-REACT SHONDA INTERFACE SYSTEM Comment: Lab test performed by: [facility] Bridgett LAWSON MD 12/11/2004 11:5 7 AM RUBBER TURNER Donell Meyer MD CHEMISTRY ORDERABLES Final Result Performing Organization Address [facility] de Phone Number INTERFACE SYSTEM Refer to clinic/hospital department documented in this encounter Visit Diagnoses Diagnosis Enlargement of lymph nodes- Primary documented in this encounter Care Teams Combination Machine Tool Setter Relationship Specialty [place] [address] [place] [address] PCP - General 07/14/04 documented as of this encounter
--- OUTSIDE RECORDS SUMMARY | 2025-01-15 12:21 | XMS_ITS | Encounter Summary ---
Author Organization [employer] [facility] Address [address] [place] [address] Care Team Providers Care Transition Teacher Name Role Phone Liberty Hernandez MD Primary Care Provider [phone] Encounter Details Date Type Department Care Team (Latest Contact Info) Description 04/18/2007 Outpatient Historical [facility] Wallace Anthony MD NO ADDRESS ON FILE Lymphomas NEC Extranodal/NOS (CMS/HCC) (Primary Dx) Social History Tobacco Use Types Packs/Day Years Used Date Smoking Tobacco: Never Assessed Comments Unknown Sex and Gender Information Value Date Recorded Sex Assigned at Not on file Legal Sex Female 5:10 AM BUNDLE PERSON Gender Identity Not on file Sexual Orientation [...] 9:30 AM CDT Wallace Anthony MD HEMATOLOGY ORDERABLES Edited Performing Organization Address City/[facility] de Phone Number INTERFACE [...] 9:30 AM CDT Wallace Anthony MD HEMATOLOGY ORDERABLES Edited Performing Organization Address [facility] de Phone Number INTERFACE [...] is available on the [facility] Intranet at: [email or web address] Select: Lab Policies and Procedures Select: Reference Ranges - GFR 04/18/2007 9:30 AM CDT Wallace Anthoyn MD CHEMISTRY ORDERABLES Edited INTERFACE SYSTEM Refer to clinic/hospital department documented in this encounter Visit Diagnoses Diagnosis Other malignant lymphomas, unspecified site, extranodal and solid organ sites (CMS/HCC)- Primary Other malignant lymphomas, unspecified site, extranodal and solid organ sites documented in this encounter Care Teams Transition Teacher Relationship Specialty [place] [address] [place] [address] PCP - General 07/14/04 documented as of this encounter
--- OUTSIDE RECORDS SUMMARY | 2025-01-15 12:21 | XMS_ITS | Encounter Summary ---
Author Organization [facility] Address [address] [place] [address] Care Team Providers Care Brick Veneer Maker Name Role Phone Liberty Hernandez MD Primary Care Provider [phone] Encounter Details Date Type Department Care Team (Late st Contact Info) Description 12/06/2004 Outpatient Historical HIS [facility] Ant Huang MD [address] [id number] ENLARGEMENT LYMPH NODES (Primary Dx) Social History Tobacco Use Types Packs/Day Years Used Date Smoking Tobacco: Never Assessed Comments Unknown Sex and Gender Information Value Date Recorded Sex Assigned at Not on file Legal Sex Female 5:10 AM SALVAGE WORKER Gender Identity Not on file Sexual Orientation Not on file documented as of this encounter Plan of Treatment Not on file documented as of this encounter Procedures Procedure Name Priority Date/Time Associated Diagnosis Comments TOXOPLASMOSIS IGM Routine 12/06/2004 2:5 2 PM SALVAGE WORKER PARVOVIRUS B19 AB IGG/IGM Routine 12/06/2004 2:52 PM SALVAGE WORKER EBV IGM, VCA Routine 12/06/2004 2:52 PM SALVAGE WORKER EBV IGG, VCA Routine 12/06/2004 2:52 PM SALVAGE WORKER CBC WITH DIFFERENTIAL Routine 12/06/2004 2:52 PM SALVAGE WORKER CBC WITH DIFFERENTIAL Routine 12/06/2004 2:52 PM SALVAGE WORKER CMV IGG Routine 12/06/2004 2:52 PM SALVAGE WORKER AMELIA SCREEN W/REFLEX Routine 12/06/2004 2 :52 PM SALVAGE WORKER documented in this encounter Results * (ABNORMAL) CBC WITH DIFFERENTIAL (12/06/2004 2:52 PM SALVAGE WORKER) NEUTROPHILS 59 45 - 70 % INTERFAC [...] 0.20 K/uL INTERFACE SYSTEM 12/06/2004 2:52 PM SALVAGE WORKER us Ant Bowling MD HEMATOLOGY ORDERABLES Final Re sult INTERFACE SYSTEM Refer to clinic/hospital department * (ABNORMAL) CBC WITH DIFFERENTIAL (12/06/2004 2:52 PM SALVAGE WORKER) Pathologist [facility] WBC 6.0 4.0 - 9.8 K/uL INTERFACE [...] 12.4 fL INTERFACE SYSTEM 12/06/2004 2:52 PM SALVAGE WORKER Ant Bowling MD HEMATOLOGY ORDERABLES Final Re sult Performing Organization Address [facility] Co de Phone Number INTERFACE SYSTEM Refer to clinic/hospital department * (ABNORMAL) PARVOVIRUS B19 AB IGG/IGM (12/06/2004 2:52 PM SALVAGE WORKER) PARVOVIRUS B19 IGG ABS 4.2(H) <0.9 Index INTERFACE SYSTEM PARVOVIRUS B19 IGM ABS 0.1 <0.9 Index INTERFACE SYSTEM Comment: Reference range: IgG and IgM Index <0.9 Negative 0.9-1.1 Equivocal >1.1 Positive Interpretation: NEGATIVE: No antibody detected. This individual may be susceptible to parvovirus B-19 infection. POSITIVE: Indicative of exposure to parvovirus B-19. EQUIVOCAL results are those results too close to the cut-off values to interpret. A second sample should be drawn in two weeks, if clinically indicated. Specific IgG persists for years, and provides lifetime immunity. A majority of adults show evidence of past infection. If definitive diagnosis of acute parvovirus infection is desired, a parvovirus B-19 IgM should be obtained. Due to the poor humoral immune response in the immunocompromised, the chronically anemic, and the fetus, both antibody and DNA PCR tests are recommended for definitive diagnosis of parvovirus B-19 infection in these patients. Lab test performed by: [employer] [facility] [address] [place], [place] MISSY VALLADARES MD 12/06/2004 2:52 PM SALVAGE WORKER Ant Bowling MD CHEMISTRY ORDERABLES Final Res ult Performing Organization Address [facility] de Phone Number INTERFACE SYSTEM Refer to clinic/hospital department * TOXOPLASMOSIS IGM (12/06/2004 2:52 PM SALVAGE WORKER) Pathologist [facility] TOXOPLASMOSIS IGG 0.20 EIA Value IN [employer] SYSTEM Comment: EIA VALUE EXPLANATION OF TEST RESULTS --------- < OR = 0.90 NEGATIVE - NO TOXOPLASMA IGG ANTIBODY DETECTED 0.91 - 1.09 EQUIVOCAL > OR = 1.10 POSITIVE - TOXOPLASMA IGG ANTIBODY DETECTED THE PRESENCE OF TOXOPLASMA IGG ANTIBODY SUGGESTS A CURRENT OR PAST INFECTION WITH TOXOPLASMA GONDII. SERA COLLECTED EARLY IN THE COURSE OF INFECTION MAY NOT HAVE DETECTABLE LEVELS OF IGG ANTIBODY. DETERMINATION OF CURRENT INFECTION MAY REQUIRE ADDITIONAL TESTING FOR TOXOPLASMA IGM. Lab test performed by: [employer] [address] MARQUISE LAWSON MD TOXOPLASMOSIS IGM IN TERFACE SYSTEM Comment:NEGATIVE: NO IGM ANT IBODY TOXOPLASMOSIS IGM INTERP INTERFACE SYSTEM Comment: NO SEROLOGIC EVIDENCE OF INFECTION WITH TOXOPLASMA GONDII. CONSIDER RETESTING IN 3 WEEKS IF ACUTE INFECTION IS SUSPECTED.See Result Comment TOXOPLASMOSIS IGM COMMENT INTERFACE SYSTEM Comment: THIS INTERPRETATION CANNOT BE APPLIED TO INFANTS 15 MONTHS OF AGE OR LESS. Lab test performed by: [employer] [address] MARQUISE LAWSON MD See Result Comment 12/06/2004 2:52 PM SALVAGE WORKER us Ant Bowling MD CHEMISTRY ORDERABLES Final Res ult Performing Organization Address [facility] Co de Phone Number INTERFACE SYSTEM Refer to clinic/hospital department * EBV IGM, VCA (12/06/2004 2:52 PM SALVAGE WORKER) EBV IGM, VCA 0.00 EIA Value INTERFA CE SYSTEM EBV REFERENCE RANGE INTERFACE SYSTEM Comment: EIA VALUE INTERPRETATION < OR = 0.90 NEGATIVE - NO ANTIBODY DETECTED 0.91 - 1.09 EQUIVOCAL > OR = 1.10 POSITIVE - ANTIBODY DETECTED Lab test performed by: [employer] [address] MARQUISE LAWSON MD See Result Comment 12/06/2004 2:52 PM SALVAGE WORKER us Ant Bowling MD CHEMISTRY ORDERABLES COM Final Result Performing Organization Address [facility] Co de Phone Number INTERFACE SYSTEM Refer to clinic/hospital department * (ABNORMAL) EBV IGG, VCA (12/06/2004 2:52 PM SALVAGE WORKER) EBV IGG, VCA 3.76(H) EIA Value INTERFA CE SYSTEM EBV REFERENCE RANGE INTERFACE SYSTEM Comment: EIA VALUE INTERPRETATION < OR = 0.90 NEGATIVE - NO ANTIBODY DETECTED 0.91 - 1.09 EQUIVOCAL > OR = 1.10 POSITIVE - ANTIBODY DETECTED Lab test performed by: [facility] [id number] [place] [address] MARQUISE LAWSON MD See Result Comment 12/06/2004 2:52 PM SALVAGE WORKER Ant Bowling MD CHEMISTRY ORDERABLES Final Res ult Performing Organization Address [facility] Phone Number INTERFACE SYSTEM Refer to clinic/hospital department * (ABNORMAL) CMV IGG (12/06/2004 2:52 PM SALVAGE WORKER) CMV IGG >5.00(H) EIA Value INTERFACE SYSTEM Comment: EIA VALUE EXPLANATION OF TEST RESULTS --------- < OR = 0.90 NEGATIVE - NO CMV IGG ANTIBODY DETECTED 0.91 - 1.09 EQUIVOCAL > OR = 1.10 POSITIVE - CMV IGG ANTIBODY DETECTED THE PRESENCE OF CYTOMEGALOVIRUS (CMV) IGG ANTIBODY SUGGESTS A CURRENT OR PAST INFECTION WITH CMV. SERA COLLECTED EARLY IN THE COURSE OF INFECTION MAY NOT HAVE DETECTABLE LEVELS OF IGG ANTIBODY. IF A CURRENT OR RECENT INFECTION IS SUSPECTED, PERFORMING A CMV IGM TEST ON A SINGLE SERUM MAY YIELD CLINICALLY USEFUL INFORMATION. Lab test performed by: [facility] [id number] [place] [address] MARQUISE LAWSON MD 12/06/2004 2:52 PM SALVAGE WORKER Ant Bowling MD CHEMISTRY ORDERABLES Final Res ult Performing Organization Address [facility] Phone Number INTERFACE SYSTEM Refer to clinic/hospital department * (ABNORMAL) AMELIA (12/06/2004 2:52 PM SALVAGE WORKER) AMELIA SCREEN POSITIVE( A) NEGATIVE INTERFACE SYSTEM AMELIA TITER <1:40 Titer INTERFACE SYSTEM Comment: A POSITIVE AMELIA-EIA SCREEN ASSOCIATED WITH A NEGATIVE AMELIA-IFA RESULT MAY SUGGEST THE POSSIBILITY OF CLINICALLY SIGNIFICANT ANTIBODIES OR NON-SPECIFIC ANTIBODIES. IF CLINICALLY INDICATED, ASSESSMENT FOR OTHER SYSTEMIC AUTOIMMUNITY SHOULD BE CONSIDERED. REFERENCE RANGE: <1:40 NEGATIVE 1:40 - 1:80 LOW ANTIBODY LEVEL >1:80 ELEVATED ANTIBODY LEVEL Lab test performed by: [facility] [address] [place] [address] MARQUISE LAWSON MD 12/06/2004 2:52 PM SALVAGE WORKER us Ant Bowling MD CHEMISTRY ORDERABLES Final Res ult INTERFACE SYSTEM Refer to clinic/hospital department documented in this encounter Visit Diagnoses Diagnosis Enlargement of lymph nodes- Primary documented in this encounter Care Teams Brick Veneer Maker Relationship Specialty [place] [address] [place] [address] PCP - General 07/14/04 documented as of this encounter
--- OUTSIDE RECORDS SUMMARY | 2025-01-15 12:21 | XMS_ITS | Encounter Summary ---
Author Organization [employer] [facility] Address [address] [place] [address] Care Team Providers Care Oil And Gas Field Technician Name Role Phone Liberty Hernandez MD Primary Care Provider [phone] Encounter Details Date Type Department Care Team (Latest Contact Info) Description 12/28/2004 Outpatient Historical [facility] ANIKA Meyer, Donell Roche MD NO ADDRESS ON FILE ENLARGEMENT LYMPH NODES (Primary Dx) Social History Tobacco Use Types Packs/Day Years Used Date Smoking Tobacco: Never Assessed Comments Unknown Sex and Gender Information Value Date Recorded Sex Assigned at Not on file Legal Sex Female 5:10 AM RESEARCH CLERK Gender Identity Not on file Sexual Orientation Not on file documented as of this encounter Plan of Treatment Not on file documented as of this encounter Procedures Procedure Name Priority Date/Time Associated Diagnosis Comments TULAREMIA ANTIBODY Routine 12/28/2004 4: 17 PM RESEARCH CLERK CMV IGM Routine 12/28/2004 4:17 PM RESEARCH CLERK CMV IGG Routine 12/28/2004 4:17 PM RESEARCH CLERK CORTISOL LEVEL Routine 12/28/2004 4:17 PM RESEARCH CLERK documented in this encounter Results * CORTISOL LEVEL (12/28/2004 4:17 PM RESEARCH CLERK) CORTISOL LEVEL 3.1 ug/dL INTER FACE SYSTEM Comment: Cortisol Reference Range: 7 - 10 AM: 6.2 - 19.4 ug/dL 4 - 8 PM: 2.3 - 12.3 ug/dL 12/28/2004 4:17 PM RESEARCH CLERK Donell Meyer MD CHEMISTRY ORDERABLES Final Result Performing Organization Address [facility] de Phone Number INTERFACE SYSTEM Refer to clinic/hospital department * TULAREMIA ANTIBODY (12/28/2004 4:17 PM RESEARCH CLERK) FRANCISELLA AB <20 INTER FACE SYSTEM Comment: Reference Range: <20 NEGATIVE A single titer of greater than 80 or a four-fold rise in titer is considered significant. Cross-reactions may occur between Francisella and Brucella antigens and antisera. Parallel testing is recommended for positive agglutinations. Lab test performed by: [facility] [address] [place] [address] Pj BUTLER MD 12/28/2004 4:17 PM RESEARCH CLERK Donell Meyer MD CHEMISTRY ORDERABLES Final Result Performing Organization Address [facility] Phone Number INTERFACE SYSTEM Refer to clinic/hospital department * CMV IGM (12/28/2004 4:17 PM RESEARCH CLERK) CMV IGM 0.24 EIA Value INTERFACE SYSTEM Comment: INDEX VALUE EXPLANATION OF TEST RESULTS < 0.90 NEGATIVE - NO CMV IGM ANTIBODY DETECTED 0.90 - 1.10 EQUIVOCAL > OR = 1.11 POSITIVE - CMV IGM ANTIBODY DETECTED RESULTS FROM ANY ONE IGM ASSAY SHOULD NOT BE USED A SOLE DETERMINANT OF A CURRENT OR RECENT INFECTION. BECAUSE IGM TESTS CAN YIELD FALSE POSITIVE RESULTS AND LOW LEVELS OF IGM ANTIBODY MAY PERSIST FOR MORE THAN 12 MONTHS POST INFECTION, RELIANCE ON A SINGLE TEST RESULT COULD BE MISLEADING. IF AN ACUTE INFECTION IS SUSPECTED, CONSIDER OBTAINING A NEW SPECIMEN AND SUBMIT FOR BOTH IGG AND IGM TESTING IN TWO OR MORE WEEKS. Lab test performed by: [facility] [address] [facility] [address] MARQUISE LAWSON MD 12/28/2004 4:17 PM RESEARCH CLERK Donell Meyer MD CHEMISTRY ORDERABLES Final Result Performing Organization Address [facility]/State/ZIP Co de Phone Number INTERFACE SYSTEM Refer to clinic/hospital department * (ABNORMAL) CMV IGG (12/28/2004 4:17 PM RESEARCH CLERK) CMV IGG >5.00(H) EIA Value INTERFACE SYSTEM [...] CLINICALLY USEFUL INFORMATION. Lab test performed by: [facility] [address] MARQUISE LAWSON MD 12/28/2004 4:17 PM RESEARCH CLERK Donell Meyer MD CHEMISTRY ORDERABLES Final Result INTERFACE SYSTEM Refer to clinic/hospital department documented in this encounter Visit Diagnoses Diagnosis Enlargement of lymph nodes- Primary documented in this encounter Care Teams Oil And Gas Field Technician Relationship Specialty [place] [address] [place] [address] PCP - General 07/14/04 documented as of this encounter
--- OUTSIDE RECORDS SUMMARY | 2025-01-15 12:21 | XMS_ITS | Encounter Summary ---
Author Organization [employer] [facility] Address [address] [place] [address] Care Team Providers Care Mangle Catcher Name Role Phone Liberty Hernandez MD Primary Care Provider [phone] Encounter Details Date Type Department Care Team (Latest Contact Info) Description 12/13/2006 Outpatient Historical [facility] Wallace Anthony MD NO ADDRESS ON FILE Lymphomas NEC Extranodal/NOS (CMS/HCC) (Primary Dx) Social History Tobacco Use Types Packs/Day Years Used Date Smoking Tobacco: Never Assessed Comments Unknown Sex and Gender Information Value Date Recorded Sex Assigned at Not on file Legal Sex Female 5:10 AM ENGINEERING GEOLOGIST Gender Identity Not on file Sexual Orientation Not on file documented as of this encounter Plan of Treatment Not on file documented as of this encounter Procedures Procedure Name Priority Date/Time Associated Diagnosis Comments CBC WITH DIFFERENTIAL Routine 12/20/2006 8:44 AM ENGINEERING GEOLOGIST CBC WITH DIFFERENTIAL Routine 12/20/2006 8:44 AM ENGINEERING GEOLOGIST COMPREHENSIVE METABOLIC PANEL Routine 12/20/2006 8:44 AM ENGINEERING GEOLOGIST documented in this encounter Results * (ABNORMAL) CBC WITH DIFFERENTIAL (12/20/2006 8:44 AM ENGINEERING GEOLOGIST) NEUTROPHILS 57 45 - 70 % INTERFAC [...] 0.20 K/uL INTERFACE SYSTEM 12/20/2006 8:44 AM ENGINEERING GEOLOGIST Wallace Anthony MD HEMATOLOGY ORDERABLES Edited Performing Organization Address [facility] de Phone Number INTERFACE SYSTEM Refer to clinic/hospital department * (ABNORMAL) CBC WITH DIFFERENTIAL (12/20/2006 8:44 AM ENGINEERING GEOLOGIST) WBC 3.7(L) 4.0 - 9.8 K/uL INTERFACE [...] 12.4 fL INTERFACE SYSTEM 12/20/2006 8:44 AM ENGINEERING GEOLOGIST Wallace Anthony MD HEMATOLOGY ORDERABLES Edited Performing Organization Address [facility] de Phone Number INTERFACE SYSTEM Refer to clinic/hospital department * COMPREHENSIVE METABOLIC PANEL (12/20/2006 8:44 AM ENGINEERING GEOLOGIST) GLUCOSE 80 65 - 99 mg/dL INTERFACE [...] is available on the [facility] Intranet at: [email or web address] Select: Lab Policies and Procedures Select: Reference Ranges - GFR 12/20/2006 8:44 AM ENGINEERING GEOLOGIST Wallace Anthony MD CHEMISTRY ORDERABLES Edited INTERFACE SYSTEM Refer to clinic/hospital department documented in this encounter Visit Diagnoses Diagnosis Other malignant lymphomas, unspecified site, extranodal and solid organ sites (CMS/HCC)- Primary Other malignant lymphomas, unspecified site, extranodal and solid organ sites documented in this encounter Care Teams Mangle Catcher Relationship Specialty [place] [address] [place] [address] PCP - General 07/14/04 documented as of this encounter
--- OUTSIDE RECORDS SUMMARY | 2025-01-15 12:21 | XMS_ITS | Encounter Summary ---
Author Organization [facility] Address [address] [place] [address] Care Team Providers Care Supervisor [employer] Name Role Phone Liberty Hernandez MD Primary Care Provider [phone] Encounter Details Date Type Department Care Team (Latest Contact Info) Description 12/19/2007 Outpatient Historical [facility] Wallace Anthony MD NO ADDRESS ON FILE Lymphomas NEC Extranodal/NOS (CMS/HCC) Social History Tobacco Use Types Packs/Day Years Used Date Smoking Tobacco: Never Assessed Comments Unknown Sex and Gender Information Value Date Recorded Sex Assigned at Not on file Legal Sex Female 5:10 AM GOLF BALL TRIMMER Gender Identity Not on file Sexual Orientation Not on file documented as of this encounter Plan of Treatment Not on file documented as of this encounter Procedures Procedure Name Priority Date/Time Associated Diagnosis Comments CBC WITH DIFFERENTIAL Stat 12/19/2007 2:09 PM GOLF BALL TRIMMER COMPREHENSIVE METABOLIC PANEL Stat 12/19/2007 2:09 PM GOLF BALL TRIMMER documented in this encounter Results * COMPREHENSIVE METABOLIC PANEL (12/19/2007 2:09 PM GOLF BALL TRIMMER) BUN 14 6 - 20 mg/dL [facility] CALCIUM 8.8 8.4 - 10.2 mg/dL [facility] CHLORIDE 104 96 - 108 mmol/L [facility] ALBUMIN 4.4 3.4 - 4.8 g/dL [facility] CREATININE 0.66 0.51 - 0.95 mg/dL [facility] SODIUM 140 135 - 145 mmol/L [facility] ALT 22 0 - 31 U/L [facility] ALKALINE PHOSPHATASE 65 35 - 104 U/L [facility] BILIRUBIN TOTAL 0.3 0.2 - 1.0 mg/dL [facility] CO2 27 22 - 30 mmol/L [facility] TOTAL PROTEIN 6.7 6.3 - 8.6 g/dL [facility] POTASSIUM 3.6 3.5 - 4.9 mmol/L [facility] GLUCOSE 93 65 - 99 mg/dL [facility] AST 26 12 - 32 U/L [facility] GFR, >60 >=60 mL/min/1.7 sq meter [facility] GFR >60 >=60 mL/min/1.7 sq meter [facility] Comment: Estimated GFR rate interpretative information for both Americans and non- Americans is available on the [facility] Intranet at: [email or web address] Select: Lab Policies and Procedures Select: Reference Ranges - GFR Blood specimen (specimen) 12/19/2007 2:09 PM GOLF BALL TRIMMER 12/19/2007 2:11 PM GOLF BALL TRIMMER us Wallace Anthony MD CHEMISTRY ORDERABLES Edited [facility] [address] [place] [address] * (ABNORMAL) CBC WITH DIFFERENTIAL (12/19/2007 2:09 PM GOLF BALL TRIMMER) [facility] 34.9 31.5 - 35.5 % [facility] MCV 93.2 82.0 - 99.0 fL [facility] PLATELETS 286 140 - 350 K/uL [facility] HEMOGLOBIN 12.5 11.8 - 14.8 g/dL [facility] RDW 12.4 11.5 - 14.5 % [facility] WBC 5.6 4.0 - 9.8 K/uL [facility] MCH 32.6 27.2 - 32.6 pg [facility] MPV 8.8(L) 9.3 - 12.4 fL [facility] HEMATOCRIT 35.8 35.5 - 44.0 % [facility] RDW-STDEV 40.9 37.1 - 48.7 fL [facility] RBC 3.84(L) 3.90 - 4.90 M/uL [facility] NEUTROPHILS 47 45 - 70 % [facility] NEUTROPHIL ABSOLUTE 2.61 1.90 - 7.00 K/uL [facility] EOSINOPHILS 1 0 - 7 % [facility] EOSINOPHIL ABSOLUTE 0.08 0.00 - 0.70 K/uL [facility] LYMPHOCYTES 39 16 - 45 % [facility] LYMPHOCYTE ABSOLUTE 2.14 0.70 - 4.50 K/uL [facility] BASOPHILS 1 0 - 2 % [facility] BASOPHILS ABSOLUTE 0.03 0.00 - 0.20 K/uL [facility] MONOCYTES 13 3 - 13 % [facility] MONOCYTE ABSOLUTE 0.70 0.10 - 1.30 K/uL [facility] Blood specimen (specimen) 12/19/2007 2:09 PM GOLF BALL TRIMMER 12/19/2007 2:11 PM GOLF BALL TRIMMER us Wallace Anthony MD HEMATOLOGY ORDERABLES Edited INTERFACE SYSTEM Refer to clinic/hospital department [facility] [address] [place], [place] [address] documented in this encounter Visit Diagnoses Diagnosis Other malignant lymphomas, unspecified site, extranodal and solid organ sites (CMS/HCC) Other malignant lymphomas, unspecified site, extranodal and solid organ sites documented in this encounter Care Teams Supervisor [employer] Relationship Specialty [place] [address] [place] [address] PCP - General 07/14/04 documented as of this encounter
== END 2025-01-15 10:43 | disposition home or self-care (01) ==
LOC: ANHIMG 10:48
PROVIDERS: Visit Provider Nurse Practitioner
DX: M81.0 Age-related osteoporosis without current pathological fracture (principal); M85.88 Other specified disorders of bone density and structure, other site; Z78.0 Asymptomatic menopausal state
CPT/HCPCS: 77080

== ENCOUNTER 2025-01-15 11:30 | Outpatient (CLI) | payer OTHER, SELFPAY ==
--- NOTE | ~2025-01-15 | MM_ITS ---
EXAMINATION: MM screening ly BI w rox HISTORY: Screening mammogram TECHNIQUE: Craniocaudal and mediolateral oblique 3-D tomosynthesis images were obtained and synthetic 2-D images were generated. CAD analysis was submitted and interpreted. COMPARISON: 12/11/2023, 12/07/2022, 12/01/2021 BREAST PARENCHYMAL COMPOSITION:Dense: The breasts are heterogeneously dense, which may obscure small masses. FINDINGS: No suspicious mass, calcification, or architectural distortion are identified in either letty ast to suggest malignancy. There has been no suspicious interval change. IMPRESSION: No mammographic evidence of malignancy. Recommend routine screening mammography in one year. BI-RADS Category 1: Negative Reviewed, dictated and finalized at location .
== END 2025-01-15 11:31 | disposition home or self-care (01) ==
LOC: MICIMG 11:32
PROVIDERS: PCP Nurse Practitioner; Visit Provider Nurse Practitioner
DX: Z12.31 Encounter for screening mammogram for malignant neoplasm of breast (principal)
CPT/HCPCS: 77063; 77067

== ENCOUNTER 2025-04-16 01:13 | Day surgery (SDC) | payer OTHER, SELFPAY ==
[2025-04-07 08:35] VITALS: BMI 20.3
--- OUTSIDE RECORDS SUMMARY | 2025-04-16 01:16 | XMS_ITS | Encounter Summary ---
Author Organization [facility] Address 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 Gender Identity Not on file Sexual Orientation [...] CDT) POTASSIUM 3.9 3.5 - 4.9 mmol/L [facility] TOTAL PROTEIN 6.7 6.3 - 8.6 g/dL [facility] GLUCOSE 65 65 - 99 mg/dL [facility] AST 26 12 - 32 U/L [facility] BUN 17 6 - 20 mg/dL [facility] CALCIUM 9.6 8.6 - 10.2 mg/dL [facility] ALBUMIN 4.2 3.4 - 4.8 g/dL [facility] CHLORIDE 104 96 - 108 mmol/L [facility] CREATININE 0.70 0.51 - 0.95 mg/dL [facility] ALT 18 0 - 31 U/L [facility] SODIUM 138 135 - 145 mmol/L [facility] ALKALINE PHOSPHATASE 55 35 - 104 U/L [facility] CO2 25 22 - 30 mmol/L [facility] BILIRUBIN TOTAL 0.2 0.2 - 1.0 mg/dL [facility] GFR, >60 >=60 mL/min/1.7 sq meter [facility] GFR >60 >=60 mL/min/1.7 sq meter [facility] Comment: Modification of Diet in Renal Disease (MDRD) study formula. Estimated GFR rate interpretative information for both Americans and non- Americans is available on the [facility] Intranet at: [email or web address] Select: Lab Policies and Procedures Select: Reference Ranges - GFR Blood specimen (specimen) 07/01/2009 9:26 AM CDT 07/01/2009 9:26 AM CDT us Wallace Anthony MD CHEMISTRY ORDERABLES Edited [facility] CLIA# [id number] [address] [place] [address] * (ABNORMAL) CBC WITH DIFFERENTIAL (07/01/2009 9:26 AM CDT) HEMATOCRIT 35.7 35.5 - 44.0 % [facility] RDW-STDEV 41.7 37.1 - 48.7 fL [facility] RBC 3.83(L) 3.90 - 4.90 M/uL [facility] MCHC 34.2 31.5 - 35.5 % [facility] MCV 93.2 82.0 - 99.0 fL [facility] PLATELETS 274 140 - 350 K/uL [facility] HEMOGLOBIN 12.2 11.8 - 14.8 g/dL [facility] RDW 12.3 11.5 - 14.5 % [facility] WBC 4.8 4.0 - 9.8 K/uL [facility] MCH 31.9 27.2 - 32.6 pg [facility] MPV 9.1(L) 9.3 - 12.4 fL [facility] LYMPHOCYTES 34 16 - 45 % [facility] LYMPHOCYTE ABSOLUTE 1.62 0.70 - 4.50 K/uL [facility] BASOPHILS 0 0 - 2 % [facility] BASOPHILS ABSOLUTE 0.02 0.00 - 0.20 K/uL [facility] MONOCYTES 11 3 - 13 % [facility] MONOCYTE ABSOLUTE 0.54 0.10 - 1.30 K/uL [facility] NEUTROPHILS 54 45 - 70 % [facility] NEUTROPHIL ABSOLUTE 2.60 1.90 - 7.00 K/uL [facility] EOSINOPHILS 1 0 - 7 % [facility] EOSINOPHIL ABSOLUTE 0.05 0.00 - 0.70 K/uL [facility] Blood specimen (specimen) 07/01/2009 9:26 AM CDT 07/01/2009 9:26 AM CDT us Wallace Anthony MD HEMATOLOGY ORDERABLES Edited [facility] CLIA# [id number] [address] [place] [address] documented in this encounter Visit Diagnoses Diagnosis 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
--- OUTSIDE RECORDS SUMMARY | 2025-04-16 01:16 | XMS_ITS | Encounter Summary ---
Author Organization [facility] Address 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 Gender Identity Not on file Sexual Orientation [...] Result Performing Organization Address [facility] de Phone Number INTERFACE SYSTEM Refer to [...] esult Performing Organization Address [facility] de Phone Number INTERFACE SYSTEM Refer to [...] HEMATOLOGY ORDERABLES Final Result Performing Organization Address [facility] de Phone Number INTERFACE SYSTEM Refer to [...] Result Performing Organization Address [facility] Phone Number INTERFACE SYSTEM [...] Result Performing Organization Address [facility] Phone Number INTERFACE SYSTEM [...] Result Performing Organization Address [facility] Phone Number INTERFACE SYSTEM [...] documented in this encounter Care Teams Senior Receptionist Relationship Specialty [place] [address] [place] [address] PCP - General 07/14/04 documented as of this encounter
--- OUTSIDE RECORDS SUMMARY | 2025-04-16 01:16 | XMS_ITS | Encounter Summary ---
Author Organization [employer] Address [address] [place] [address] Care Team Providers Care Director Clinical Data Name Role Phone Liberty Hernandez MD Primary Care Provider [phone] Encounter Details Date Type Department Care Team [...] on file Legal Sex Female 5:10 AM CLOCK SMITH Gender Identity Not on file Sexual Orientation Not on file documented as of this encounter Plan of Treatment Not on file documented as of this encounter Visit Diagnoses Diagnosis Other malignant lymphomas, unspecified site, extranodal and solid organ sites- Primary documented in this encounter Care Teams Director Clinical Data Relationship Specialty [place] [address] [place] [address] PCP - General 07/14/04 documented as of this encounter
--- OUTSIDE RECORDS SUMMARY | 2025-04-16 01:16 | XMS_ITS | Encounter Summary ---
Author Organization [facility] Address 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
--- OUTSIDE RECORDS SUMMARY | 2025-04-16 01:16 | XMS_ITS | Encounter Summary ---
Author Organization [facility] Address [address] [place] [address] Care Team Providers Care [address] Mechanical Engineer Name Role Phone Liberty Hernandez MD Primary Care Provider [phone] Encounter Details Date Type Department Care Team [...] on file Legal Sex Female 5:10 AM GAS METER MECHANIC Gender Identity Not on file Sexual Orientation Not on file documented as of this encounter Plan of Treatment Not on file documented as of this encounter Procedures Procedure Name Priority Date/Time Associated Diagnosis Comments CBC WITH DIFFERENTIAL Routine 09/07/2005 9:17 AM GAS METER MECHANIC CBC WITH DIFFERENTIAL Routine 09/07/2005 9:17 AM GAS METER MECHANIC COMPREHENSIVE METABOLIC PANEL Routine 09/07/2005 9:17 AM GAS METER MECHANIC CBC WITH DIFFERENTIAL Routine 08/24/2005 8:02 AM CDT CBC WITH DIFFERENTIAL Routine 08/24/2005 8:02 AM CDT CBC WITH DIFFERENTIAL Routine 08/17/2005 8:22 AM CDT CBC WITH DIFFERENTIAL Routine 08/17/2005 8:22 AM CDT documented in this encounter Results * (ABNORMAL) CBC WITH DIFFERENTIAL (09/07/2005 9:17 AM GAS METER MECHANIC) NEUTROPHILS 56 45 - 70 % INTERFAC [...] 0.20 K/uL INTERFACE SYSTEM 09/07/2005 9:17 AM GAS METER MECHANIC us Wallace Anthony MD HEMATOLOGY ORDERABLES Final Result Performing Organization Address [facility] de Phone Number INTERFACE SYSTEM Refer to clinic/hospital department * (ABNORMAL) CBC WITH DIFFERENTIAL (09/07/2005 9:17 AM GAS METER MECHANIC) Pathologist [facility] WBC 4.4 4.0 - 9.8 K/uL INTERFACE [...] 12.4 fL INTERFACE SYSTEM 09/07/2005 9:17 AM GAS METER MECHANIC us Wallace Anthony MD HEMATOLOGY ORDERABLES Final Result Performing Organization Address [facility] de Phone Number INTERFACE SYSTEM Refer to clinic/hospital department * (ABNORMAL) COMPREHENSIVE METABOLIC PANEL (09/07/2005 9:17 AM GAS METER MECHANIC) GLUCOSE 64(L) 65 - 109 mg/dL INTERFACE [...] 30 mmol/L INTERFACE SYSTEM 09/07/2005 9:17 AM GAS METER MECHANIC Wallace Anthony MD CHEMISTRY ORDERABLES Final R esult Performing Organization Address [facility] de Phone Number INTERFACE SYSTEM Refer to clinic/hospital department * (ABNORMAL) CBC WITH DIFFERENTIAL (08/24/2005 8:02 AM CDT) Pathologist [facility] NEUTROPHILS 63 45 - 70 % INTERFAC [...] Final Result Performing Organization Address [facility]/ZIP Co de Phone Number INTERFACE SYSTEM Refer to clinic/hospital department * (ABNORMAL) CBC WITH DIFFERENTIAL (08/24/2005 8:02 AM CDT) Pathologist [facility] WBC 5.0 4.0 - 9.8 K/uL INTERFACE [...] Final Result Performing Organization Address [facility] Phone Number INTERFACE SYSTEM Refer to clinic/hospital department * (ABNORMAL) CBC WITH DIFFERENTIAL (08/17/2005 8:22 AM CDT) Pathologist [facility] NEUTROPHILS 45 45 - 70 % INTERFAC [...] Final Result Performing Organization Address [facility] de Phone [...] fL INTERFACE SYSTEM 08/17/2005 8:22 AM CDT us Wallace Anthony MD HEMATOLOGY ORDERABLES Final Result Performing Organization Address [facility] Phone Number INTERFACE SYSTEM Refer to clinic/hospital department documented in this encounter Visit Diagnoses Diagnosis Other malignant lymphomas, unspecified site, extranodal and solid organ sites- Primary documented in this encounter Care Teams Rd Mechanical Engineer Relationship Specialty [place] [address] [place] [address] PCP - General 07/14/04 documented as of this encounter
--- OUTSIDE RECORDS SUMMARY | 2025-04-16 01:16 | XMS_ITS | Encounter Summary ---
Author Organization [facility] Address 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 Gender Identity Not on file Sexual Orientation [...] HEMATOLOGY ORDERABLES Final Result Performing Organization Address [facility] Phone Number INTERFACE SYSTEM Refer to [...] HEMATOLOGY ORDERABLES Final Result Performing Organization Address [facility] de Phone Number INTERFACE SYSTEM [...] ORDERABLES Final R esult Performing Organization Address City/[facility] Co de Phone Number INTERFACE SYSTEM Refer to clinic/hospital department documented in this encounter Visit Diagnoses Diagnosis Hemangioma of other sites- Primary documented in this encounter Care Teams Saw Runner Relationship Specialty [place] [address] [place] [address] PCP - General 07/14/04 documented as of this encounter
--- OUTSIDE RECORDS SUMMARY | 2025-04-16 01:16 | XMS_ITS | Encounter Summary ---
Author Organization [facility] Address [address] [place] [address] Care Team Providers Care Mold Burner Name Role Phone Liberty Hernandez MD Primary Care Provider [phone] Encounter Details Date Type Department Care Team (Latest Contact Info) Description 06/07/2006 Outpatient Historical [facility] Wallace Anthony MD NO ADDRESS ON FILE Lymphomas NEC Extranodal/NOS (CMS/HCC) (Primary Dx) Social History Tobacco Use Types Packs/Day Years Used Date Smoking Tobacco: Never Assessed Comments Unknown Sex and Gender Information Value Date Recorded Sex Assigned at Not on file Legal Sex Female 5:10 AM PIT OPERATOR Gender Identity Not on file Sexual [...] HEMATOLOGY ORDERABLES Final Result Performing Organization Address [facility] Phone Number INTERFACE SYSTEM [...] HEMATOLOGY ORDERABLES Final Result Performing Organization Address [facility] Phone Number INTERFACE SYSTEM [...] Primary documented in this encounter Care Teams Mold Burner Relationship Specialty [place] [address] [place] [address] PCP - General 07/14/04 documented as of this encounter
--- OUTSIDE RECORDS SUMMARY | 2025-04-16 01:16 | XMS_ITS | Encounter Summary ---
Author Organization [facility] Address [address] [place] [address] Care Team Providers Care Sulfur Chloride Operator Name Role Phone Liberty Hernandez MD Primary Care Provider [phone] Encounter Details Date Type Department Care Team [...] on file Legal Sex Female 5:10 AM MELT SUPERINTENDANT Gender Identity Not on file Sexual Orientation Not on file documented as of this encounter Plan of Treatment Not on file documented as of this encounter Procedures Procedure Name Priority Date/Time Associated Diagnosis Comments CBC WITH DIFFERENTIAL Stat 12/22/2008 3:01 PM MELT SUPERINTENDANT COMPREHENSIVE METABOLIC PANEL Stat 12/22/2008 3:01 PM MELT SUPERINTENDANT documented in this encounter Results * COMPREHENSIVE METABOLIC PANEL (12/22/2008 3:01 PM MELT SUPERINTENDANT) GLUCOSE 96 65 - 99 mg/dL [facility] AST 32 12 - 32 U/L [facility] BUN 14 6 - 20 mg/dL [facility] CALCIUM 9.5 8.6 - 10.2 mg/dL [facility] ALBUMIN 4.4 3.4 - 4.8 g/dL [facility] CHLORIDE 100 96 - 108 mmol/L [facility] CREATININE 0.71 0.51 - 0.95 mg/dL [facility] ALT 24 0 - 31 U/L [facility] SODIUM 136 135 - 145 mmol/L [facility] ALKALINE PHOSPHATASE 70 35 - 104 U/L [facility] CO2 30 22 - 30 mmol/L [facility] BILIRUBIN TOTAL 0.2 0.2 - 1.0 mg/dL [facility] POTASSIUM 3.5 3.5 - 4.9 mmol/L [facility] TOTAL PROTEIN 7.1 6.3 - 8.6 g/dL [facility] GFR, >60 >=60 mL/min/1.7 sq meter [facility] GFR >60 >=60 mL/min/1.7 sq meter [facility] Comment: Modification of Diet in Renal Disease (MDRD) study formula. Estimated GFR rate interpretative information for both Americans and non- Americans is available on the [facility] [place] [place] Intranet at: [email or web address] Select: Lab Policies and Procedures Select: Reference Ranges - GFR Blood specimen (specimen) 12/22/2008 3:01 PM MELT SUPERINTENDANT 12/22/2008 3:02 PM MELT SUPERINTENDANT us Wallace Anthony MD CHEMISTRY ORDERABLES Edited INTERFACE SYSTEM Refer to clinic/hospital department [facility] CLIA# [id number] [address] [place] [address] * (ABNORMAL) CBC WITH DIFFERENTIAL (12/22/2008 3:01 PM MELT SUPERINTENDANT) HEMATOCRIT 34.4(L) 35.5 - 44.0 % [facility] RDW-STDEV 40.0 37.1 - 48.7 fL [facility] RBC 3.82(L) 3.90 - 4.90 M/uL [facility] MCHC 35.5 31.5 - 35.5 % [facility] MCV 90.1 82.0 - 99.0 fL [facility] PLATELETS 285 140 - 350 K/uL [facility] HEMOGLOBIN 12.2 11.8 - 14.8 g/dL [facility] RDW 12.3 11.5 - 14.5 % [facility] WBC 6.6 4.0 - 9.8 K/uL [facility] MCH 31.9 27.2 - 32.6 pg [facility] MPV 8.8(L) 9.3 - 12.4 fL [facility] BASOPHILS ABSOLUTE 0.03 0.00 - 0.20 K/uL [facility] MONOCYTES 13 3 - 13 % [facility] MONOCYTE ABSOLUTE 0.87 0.10 - 1.30 K/uL [facility] NEUTROPHILS 47 45 - 70 % [facility] NEUTROPHIL ABSOLUTE 3.13 1.90 - 7.00 K/uL [facility] EOSINOPHILS 1 0 - 7 % [facility] EOSINOPHIL ABSOLUTE 0.08 0.00 - 0.70 K/uL [facility] LYMPHOCYTES 38 16 - 45 % [facility] LYMPHOCYTE ABSOLUTE 2.51 0.70 - 4.50 K/uL [facility] BASOPHILS 1 0 - 2 % [facility] Blood specimen (specimen) 12/22/2008 3:01 PM MELT SUPERINTENDANT 12/22/2008 3:02 PM MELT SUPERINTENDANT us Wallace Anthony MD HEMATOLOGY ORDERABLES Edited INTERFACE SYSTEM Refer to clinic/hospital department [facility] CLIA# [id number] [address] [address] documented in this encounter Visit Diagnoses Diagnosis 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
--- OUTSIDE RECORDS SUMMARY | 2025-04-16 01:16 | XMS_ITS | Encounter Summary ---
Author Organization [facility] Address [address] [place] [address] Care Team Providers Care Flexographic Press Helper Name Role Phone Liberty Hernandez MD Primary Care Provider [phone] Encounter Details Date Type Department Care Team (Late st Contact Info) Description 06/07/2006 Outpatient Historical [facility] Wallace Anthony MD NO ADDRESS ON FILE Social History Tobacco Use Types Packs/Day Years Used Date Smoking Tobacco: Never Assessed Comments Unknown Sex and Gender Information Value Date Recorded Sex Assigned at Not on file Legal Sex Female 5:10 AM GLOVE TURNER Gender Identity Not on file Sexual Orientation Not on file documented as of this encounter Plan of Treatment Not on file documented as of this encounter Visit Diagnoses Not on filedocumented in this encounter Care Teams Flexographic Press Helper Relationship Specialty [place] [address] [place] [address] PCP - General 07/14/04 documented as of this encounter
--- OUTSIDE RECORDS SUMMARY | 2025-04-16 01:16 | XMS_ITS | Encounter Summary ---
Author Organization [facility] Address [address] [place] [address] Care Team Providers Care Orthopedic Nurse Name Role Phone Liberty Hernandez MD Primary Care Provider [phone] Encounter Details Date Type Department Care Team (Late st Contact Info) Description 11/16/2005 Outpatient Historical [facility] Wallace Anthony MD NO ADDRESS ON FILE Social History Tobacco Use Types Packs/Day Years Used Date Smoking Tobacco: Never Assessed Comments Unknown Sex and Gender Information Value Date Recorded Sex Assigned at Not on file Legal Sex Female 5:10 AM SANFORIZER Gender Identity Not on file Sexual Orientation Not on file documented as of this encounter Plan of Treatment Not on file documented as of this encounter Visit Diagnoses Not on filedocumented in this encounter Care Teams Orthopedic Nurse Relationship Specialty [place] [address] [place] [address] PCP - General 07/14/04 documented as of this encounter
--- OUTSIDE RECORDS SUMMARY | 2025-04-16 01:16 | XMS_ITS | Encounter Summary ---
Author Organization [facility] Address [address] [place] [address] Care Team Providers Care Plant Tender Name Role Phone Liberty Hernandez MD Primary Care Provider [phone] Encounter Details Date Type Department Care Team (Late st Contact Info) Description 07/14/2004 Outpatient Historical [facility] [place] Bowling [place] [address] [address] ENLARGEMENT LYMPH NODES (Primary Dx) Social History Tobacco Use Types Packs/Day Years Used Date Smoking Tobacco: Never Assessed Comments Unknown Sex and Gender Information Value Date Recorded Sex Assigned at Not on file Legal Sex Female 5:10 AM MOCK UP BUILDER Gender Identity Not on file Sexual Orientation Not on file documented as of this encounter Plan of Treatment Not on file documented as of this encounter Visit Diagnoses Diagnosis Enlargement of lymph nodes- Primary documented in this encounter Care Teams Plant Tender Relationship Specialty [place] [address] [place] [address] PCP - General 07/14/04 documented as of this encounter
--- OUTSIDE RECORDS SUMMARY | 2025-04-16 01:16 | XMS_ITS | Clinical Summary ---
Author Organization [facility] Address [address] [place] [address] Phone Care Team Providers Care Zone Manager Name Role Phone Liberty Hernandez MD Primary Care Provider [phone] Allergies No known active allergies Medications evolocumab [...] tablet Take 30 mg by mouth daily early breastfeeding care specialist. Active HYDROcodone-ryan atropine (HYCODAN) 5-1.5 mg Tablet [...] on file Legal Sex Female 5:10 AM FILTERING MACHINE TENDER HELPER Gender Identity Not on file Sexual Orientation [...] 2:13 AM CDT Height 160 cm (5' 3) 07/04/2019 2:13 AM CDT Body Mass Index [...] - 1-dose 75+ series) 2033 Care Teams Zone Manager Relationship Specialty [place] [address] [place] [address] PCP - General 07/14/04
--- OUTSIDE RECORDS SUMMARY | 2025-04-16 01:16 | XMS_ITS | Encounter Summary ---
Author Organization [employer] [facility] Address [address] [place] [address] Care Team Providers Care Stage Builder Name Role Phone Liberty Hernandez MD Primary Care Provider [phone] Encounter Details Date Type Department Care Team [...] on file Legal Sex Female 5:10 AM COOLER TENDER Gender Identity Not on file Sexual Orientation Not on file documented as of this encounter Plan of Treatment Not on file documented as of this encounter Procedures Procedure Name Priority Date/Time Associated Diagnosis Comments CBC WITH DIFFERENTIAL Routine 10/05/2005 8:28 AM COOLER TENDER CBC WITH DIFFERENTIAL Routine 10/05/2005 8:28 AM COOLER TENDER COMPREHENSIVE METABOLIC PANEL Routine 10/05/2005 8:28 AM COOLER TENDER CBC WITH DIFFERENTIAL Routine 09/28/2005 2:20 PM COOLER TENDER CBC WITH DIFFERENTIAL Routine 09/28/2005 2:20 PM COOLER TENDER CBC WITH DIFFERENTIAL Routine 09/14/2005 11:06 AM COOLER TENDER CBC WITH DIFFERENTIAL Routine 09/14/2005 11:06 AM COOLER TENDER documented in this encounter Results * (ABNORMAL) CBC WITH DIFFERENTIAL (10/05/2005 8:28 AM COOLER TENDER) NEUTROPHILS 46 45 - 70 % INTERFAC [...] 0.20 K/uL INTERFACE SYSTEM 10/05/2005 8:28 AM COOLER TENDER us Wallace Anthony MD HEMATOLOGY ORDERABLES Final Result Performing Organization Address [facility] de Phone Number INTERFACE SYSTEM Refer to clinic/hospital department * (ABNORMAL) CBC WITH DIFFERENTIAL (10/05/2005 8:28 AM COOLER TENDER) Pathologist [facility] WBC 3.3(L) 4.0 - 9.8 K/uL INTERFACE [...] 12.4 fL INTERFACE SYSTEM 10/05/2005 8:28 AM COOLER TENDER us Wallace Anthony MD HEMATOLOGY ORDERABLES Final Result Performing Organization Address [facility] de Phone Number INTERFACE SYSTEM Refer to clinic/hospital department * (ABNORMAL) COMPREHENSIVE METABOLIC PANEL (10/05/2005 8:28 AM COOLER TENDER) Pathologist [facility] GLUCOSE 94 65 - 109 mg/dL INTERFACE [...] 30 mmol/L INTERFACE SYSTEM 10/05/2005 8:28 AM COOLER TENDER us Wallace Anthony MD CHEMISTRY ORDERABLES Final R esult INTERFACE SYSTEM Refer to clinic/hospital department * (ABNORMAL) CBC WITH DIFFERENTIAL (09/28/2005 2:20 PM COOLER TENDER) Pathologist [facility] NEUTROPHIL ABSOLUTE 1.56(L) 1.90 - 7.00 K/uL [...] Slight INTERFA CE SYSTEM 09/28/2005 2:20 PM COOLER TENDER us Wallace Anthony MD HEMATOLOGY ORDERABLES Final Result Performing Organization Address [facility] de Phone Number INTERFACE SYSTEM Refer to clinic/hospital department * (ABNORMAL) CBC WITH DIFFERENTIAL (09/28/2005 2:20 PM COOLER TENDER) WBC 3.4(L) 4.0 - 9.8 K/uL INTERFACE [...] 12.4 fL INTERFACE SYSTEM 09/28/2005 2:20 PM COOLER TENDER us Wallace Anthony MD HEMATOLOGY ORDERABLES Final Result Performing Organization Address [facility] Phone Number INTERFACE SYSTEM Refer to clinic/hospital department * (ABNORMAL) CBC WITH DIFFERENTIAL (09/14/2005 11:06 AM COOLER TENDER) NEUTROPHIL ABSOLUTE 3.06 1.90 - 7.00 K/uL [...] Slight INTERFACE SYSTEM 09/14/2005 11:0 6 AM COOLER TENDER Wallace Anthony MD HEMATOLOGY ORDERABLES Final Result Performing Organization Address [facility] Co de Phone Number INTERFACE SYSTEM Refer to clinic/hospital department * (ABNORMAL) CBC WITH DIFFERENTIAL (09/14/2005 11:06 AM COOLER TENDER) WBC 5.1 4.0 - 9.8 K/uL INTERFACE [...] fL INTERFACE SYSTEM 09/14/2005 11:0 6 AM COOLER TENDER Wallace Anthony MD HEMATOLOGY ORDERABLES Final Result Performing Organization Address [facility] Co de Phone Number INTERFACE SYSTEM Refer to clinic/hospital department documented in this encounter Visit Diagnoses Diagnosis Other malignant lymphomas, unspecified site, extranodal and solid organ sites- Primary documented in this encounter Care Teams Stage Builder Relationship Specialty [place] [address] [place] [address] PCP - General 07/14/04 documented as of this encounter
--- OUTSIDE RECORDS SUMMARY | 2025-04-16 01:16 | XMS_ITS | Encounter Summary ---
Author Organization [facility] Address [address] [place] [address] Care Team Providers Care Principal Statistical Scientist Name Role Phone Liberty Hernandez MD Primary Care Provider [phone] Encounter Details Date Type Department Care Team (Late st Contact Info) Description 06/09/2005 Outpatient Historical [facility] Social History Tobacco Use Types Packs/Day Years Used Date Smoking Tobacco: Never Assessed Comments Unknown Sex and Gender Information Value Date Recorded Sex Assigned at Not on file Legal Sex Female 5:10 AM SLIPPER MAKER Gender Identity Not on file Sexual Orientation Not on file documented as of this encounter Plan of Treatment Not on file documented as of this encounter Visit Diagnoses Not on filedocumented in this encounter Care Teams Principal Statistical Scientist Relationship Specialty [place] [address] [place] [address] PCP - General 07/14/04 documented as of this encounter
--- OUTSIDE RECORDS SUMMARY | 2025-04-16 01:16 | XMS_ITS | Patient Health Record ---
Author Organization [employer] Address [address] [facility] [address] [address] Care Team Providers Care Manager Strategic Partnerships Name Role Phone David JAFFE, Liberty Primary Care Provider Unavail able Reason For Referral No Information Plan Of Treatment No Information Insurance Providers Payer Name Payer Address Payer Phone Subscriber Number Group Number Insured Name Patient Relationship to Insured Coverage Start Date Coverage End Date [facility] [address] [place] [address] [id number] Jagdeep Fragoso Self - patient is the insured
--- OUTSIDE RECORDS SUMMARY | 2025-04-16 01:16 | XMS_ITS | Encounter Summary ---
Author Organization [employer] [facility] Address [address] [place] [address] Care Team Providers Care Investment Accounting Clerk Name Role Phone Liberty Hernandez MD Primary Care Provider [phone] Encounter Details Date Type Department Care Team (Latest Contact Info) Description 12/13/2006 Outpatient Historical [facility] Wallace Anthony MD NO ADDRESS ON FILE Lymphomas NEC Extranodal/NOS (CMS/HCC) (Primary Dx) Social History Tobacco Use Types Packs/Day Years Used Date Smoking Tobacco: Never Assessed Comments Unknown Sex and Gender Information Value Date Recorded Sex Assigned at Not on file Legal Sex Female 5:10 AM SURVEY COORDINATOR Gender Identity Not on file Sexual Orientation Not on file documented as of this encounter Plan of Treatment Not on file documented as of this encounter Procedures Procedure Name Priority Date/Time Associated Diagnosis Comments CBC WITH DIFFERENTIAL Routine 12/20/2006 8:44 AM SURVEY COORDINATOR CBC WITH DIFFERENTIAL Routine 12/20/2006 8:44 AM SURVEY COORDINATOR COMPREHENSIVE METABOLIC PANEL Routine 12/20/2006 8:44 AM SURVEY COORDINATOR documented in this encounter Results * (ABNORMAL) CBC WITH DIFFERENTIAL (12/20/2006 8:44 AM SURVEY COORDINATOR) NEUTROPHILS 57 45 - 70 % INTERFAC [...] 0.20 K/uL INTERFACE SYSTEM 12/20/2006 8:44 AM SURVEY COORDINATOR Wallace Anthony MD HEMATOLOGY ORDERABLES Edited Performing Organization Address [facility] de Phone Number INTERFACE SYSTEM Refer to clinic/hospital department * (ABNORMAL) CBC WITH DIFFERENTIAL (12/20/2006 8:44 AM SURVEY COORDINATOR) WBC 3.7(L) 4.0 - 9.8 K/uL INTERFACE [...] 12.4 fL INTERFACE SYSTEM 12/20/2006 8:44 AM SURVEY COORDINATOR Wallace Anthony MD HEMATOLOGY ORDERABLES Edited Performing Organization Address [facility] de Phone Number INTERFACE SYSTEM Refer to clinic/hospital department * COMPREHENSIVE METABOLIC PANEL (12/20/2006 8:44 AM SURVEY COORDINATOR) GLUCOSE 80 65 - 99 mg/dL INTERFACE [...] and non- Americans is available on the [facility] [employer] at: [email or web address] Select: Lab Policies and Procedures Select: Reference Ranges - GFR 12/20/2006 8:44 AM SURVEY COORDINATOR Wallace Anthony MD CHEMISTRY ORDERABLES Edited INTERFACE SYSTEM Refer to clinic/hospital department documented in this encounter Visit Diagnoses Diagnosis Other malignant lymphomas, unspecified site, extranodal and solid organ sites- Primary documented in this encounter Care Teams Investment Accounting Clerk Relationship Specialty [place] [address] [place] [address] PCP - General 07/14/04 documented as of this encounter
--- OUTSIDE RECORDS SUMMARY | 2025-04-16 01:16 | XMS_ITS | Encounter Summary ---
Author Organization [facility] Address [address] [place] [address] Care Team Providers Care Bioinformatics Developer Name Role Phone Liberty Hernandez MD Primary Care Provider [phone] Encounter Details Date Type Department Care Team (Late st Contact Info) Description 01/14/2007 Outpatient Historical [facility] Wallace Anthony MD NO ADDRESS ON FILE Social History Tobacco Use Types Packs/Day Years Used Date Smoking Tobacco: Never Assessed Comments Unknown Sex and Gender Information Value Date Recorded Sex Assigned at Not on file Legal Sex Female 5:10 AM SHIELD INSTALLER Gender Identity Not on file Sexual Orientation Not on file documented as of this encounter Plan of Treatment Not on file documented as of this encounter Visit Diagnoses Not on filedocumented in this encounter Care Teams Bioinformatics Developer Relationship Specialty [place] [address] [place] [address] PCP - General 07/14/04 documented as of this encounter
--- OUTSIDE RECORDS SUMMARY | 2025-04-16 01:16 | XMS_ITS | Encounter Summary ---
Author Organization [facility] Address 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
--- OUTSIDE RECORDS SUMMARY | 2025-04-16 01:16 | XMS_ITS | Encounter Summary ---
Author Organization [employer] Address [address] [place] [address] Care Team Providers Care Cable Tester Name Role Phone Liberty Hernandez MD Primary Care Provider [phone] Encounter Details Date Type Department Care Team [...] on file Legal Sex Female 5:10 AM SUPERVISOR CLOTH WINDING Gender Identity Not on file Sexual Orientation Not on file documented as of this encounter Plan of Treatment Not on file documented as of this encounter Procedures Procedure Name Priority Date/Time Associated Diagnosis Comments CBC WITH DIFFERENTIAL Routine 11/10/2005 2:21 PM SUPERVISOR CLOTH WINDING CBC WITH DIFFERENTIAL Routine 11/10/2005 2:21 PM SUPERVISOR CLOTH WINDING COMPREHENSIVE METABOLIC PANEL Routine 11/10/2005 2:21 PM SUPERVISOR CLOTH WINDING documented in this encounter Results * (ABNORMAL) CBC WITH DIFFERENTIAL (11/10/2005 2:21 PM SUPERVISOR CLOTH WINDING) NEUTROPHILS 50 45 - 70 % INTERFAC [...] 0.20 K/uL INTERFACE SYSTEM 11/10/2005 2:21 PM SUPERVISOR CLOTH WINDING Wallace Anthony MD HEMATOLOGY ORDERABLES Final Result Performing Organization Address [facility] de Phone Number INTERFACE SYSTEM Refer to clinic/hospital department * (ABNORMAL) CBC WITH DIFFERENTIAL (11/10/2005 2:21 PM SUPERVISOR CLOTH WINDING) WBC 5.0 4.0 - 9.8 K/uL INTERFACE [...] 12.4 fL INTERFACE SYSTEM 11/10/2005 2:21 PM SUPERVISOR CLOTH WINDING Wallace Anthony MD HEMATOLOGY ORDERABLES Final Result Performing Organization Address [facility] de Phone Number INTERFACE SYSTEM Refer to clinic/hospital department * (ABNORMAL) COMPREHENSIVE METABOLIC PANEL (11/10/2005 2:21 PM SUPERVISOR CLOTH WINDING) GLUCOSE 107 65 - 109 mg/dL INTERFACE [...] 30 mmol/L INTERFACE SYSTEM 11/10/2005 2:21 PM SUPERVISOR CLOTH WINDING us Wallace Anthony MD CHEMISTRY ORDERABLES Final R esult INTERFACE SYSTEM Refer to clinic/hospital department documented in this encounter Visit Diagnoses Diagnosis Other malignant lymphomas, unspecified site, extranodal and solid organ sites- Primary documented in this encounter Care Teams Cable Tester Relationship Specialty [place] [address] [place] [address] PCP - General 07/14/04 documented as of this encounter
--- OUTSIDE RECORDS SUMMARY | 2025-04-16 01:16 | XMS_ITS | Encounter Summary ---
Author Organization [facility] Address [address] [place] [address] Care Team Providers Care Signal And Communications Maintainer Name Role Phone Liberty Hernandez MD Primary Care Provider [phone] Encounter Details Date Type Department Care Team (Late st Contact Info) Description 03/05/2006 Outpatient Historical [facility] Wallace Anthony MD NO ADDRESS ON FILE Social History Tobacco Use Types Packs/Day Years Used Date Smoking Tobacco: Never Assessed Comments Unknown Sex and Gender Information Value Date Recorded Sex Assigned at Not on file Legal Sex Female 5:10 AM DECONTAMINATION TECHNICIAN Gender Identity Not on file Sexual Orientation Not on file documented as of this encounter Plan of Treatment Not on file documented as of this encounter Visit Diagnoses Not on filedocumented in this encounter Care Teams Signal And Communications Maintainer Relationship Specialty [place] [address] [place] [address] PCP - General 07/14/04 documented as of this encounter
--- OUTSIDE RECORDS SUMMARY | 2025-04-16 01:16 | XMS_ITS | Data Portability ---
Author Organization [place] - [facility] OFFICE Address [address] [place] [address] Care Team Providers Care District Claims Manager Name Role Phone AMBER MAC Primary Care [...] and medical follow-up as noted. Not available 03/02/2022 12:02:09 06/15/2022 06/15/2022 Discussed with patient findings, diagnosis, and prognosis. Discussed evaluation and treatment options including risks and benefits with patient, and patient expressed understanding. The following interventions were recommended: heart healthy low-fat, low-sodium diet, continue regular exercise, maintain appropriate weight, continue current medications, and medical follow-up as noted. [email or web address] Not available 06/15/2022 12:40:38 12/14/2022 12/14/2022 Discussed with patient findings, diagnosis, and prognosis. Discussed evaluation and treatment options including risks and benefits with patient, and patient expressed understanding. The following interventions were recommended: heart healthy low-fat, low-sodium diet, continue regular exercise, maintain appropriate weight, continue current medications, and medical follow-up as noted. [email or web address] Not available 12/14/2022 13:43:31 Plan of Treatment Reminders Order Date Submit Date Provider Last Modified By Organization Details Last Modified Time Details Appointments None recorded. Lab None recorded. Referral None recorded. Procedures None recorded. Surgeries None recorded. Imaging None recorded. Medication Orders lisinopril 10 mg tablet 2021 022 [place] [facility] [id number], [address], 12:50:09 icosapent ethyl 1 gram capsule 2021 022 [place] [facility] [address], [address], 12:40:31 Zetia 10 mg tablet 2020 021 [email or web address] [facility] [id number], [address], 12:19:54 Patient TargetsNo targets recorded. Patient Instructions Encounter Date Encounter Id Patient Instructions Last Modified By Organization Details Last Modified Time 08/25/2021 [id number] elevated blood pressure: care instructions [email or web address] Not available 08/25/2021 12:53:24 high cholesterol : care instructions [email or web address] Not available 08/25/2021 12:53:24 low sodium diet (2,000 milligram): care instructions [email or web address] Not available 08/25/2021 12:53:24 11/03/2021 [id number] elevated blood pressure: care instructions Not available 11/03/2021 13:06:00 high cholesterol : care instructions [email or web address] Not available 11/03/2021 13:06:00 low sodium diet (2,000 milligram): care instructions [email or web address] Not available 11/03/2021 13:06:00 03/02/2022 [id number] elevated blood pressure: care instructions [email or web address] Not available 03/02/2022 12:27:40 high cholesterol : care instructions [email or web address] Not available 03/02/2022 12:27:40 low sodium diet (2,000 milligram): care instructions Not available 03/02/2022 12:27:40 06/15/2022 [id number] elevated blood pressure: care instructions [email or web address] Not available 06/15/2022 12:50:07 high cholesterol : care instructions [email or web address] Not available 06/15/2022 12:50:07 low sodium diet (2,000 milligram): care instructions Not available 06/15/2022 12:50:07 12/14/2022 [id number] elevated blood pressure: care instructions Not available 12/14/2022 13:47:20 high cholesterol : care instructions [email or web address] Not available 12/14/2022 13:47:20 low sodium diet (2,000 milligram): care instructions [email or web address] Not available 12/14/2022 13:47:20 Reason for Referral None Reported. Results Created Date Observation Date Name Description Value Unit Range Abnormal Flag Note LastModifiedBy Organization Detail LastModifiedTime 08/09/2008/09/2021 , echoc ardio gram No observ ation record ed. [facility] [address], [place], [address], 09/06/2021 16:40:07 08/26/2008/09/2021 , echoc ardio gram [...] Details Recorded Time Tricuspid valve regurgitat ion 379900408 Active 2020 Ayaan mooney [place] - [facility] 1 16:49:13 Dyspnea on exertion 02523279 Active 2021 Ayaan mooney [place] - [facility] 2 12:09:22 Coronary arterioscl erosis 97311097 Active 2017 s/p Had CABG x 3 done in ([place] to anterior desending coronary artery, left radial artery to obtuse marginal coronary artery, reverse saphenous vein graft to second diagonal coronary artery. Radha mooney [place] - [facility] 8 17:29:49 Hyperlipid emia 87679426 Active 2017 Keena mooney [place] - [facility] 8 03:34:50 Gastroesop hageal reflux disease 178994719 Active 2017 Keena mooney [place] - [facility] 8 03:34:57 Arthritis 7135089 Active 2017 DONALD [place] - [facility] 8 03:35:18 High troponin I level 410971759 Active 2017 Keena Snider [facility] 8 03:36:26 Migraine 85472450 Active 2017 Radha Feldman [facility] 8 17:15:42 Osteoarthr itis 087878871 Active 2017 Radha Feldman [facility] 8 17:16:08 Malignant neoplastic disease 457218499 Active 2017 [facility] [place] [facility] 8 13:41:51 Cramp in lower limb 732383600 Active 2017 [facility] [place] [facility] 8 13:42:01 Tight chest 21046912 Active 2017 [facility] [place] [facility] 8 13:42:11 Increased blood pressure 10786048 Active 2017 Ayaan Wiggins [facility] 8 14:14:34 On examinatio n - carotid bruit Active 2017 Ayaan Oneilan [facility] 8 12:25:38 Peripheral arterial occlusive disease 486702350 Active 2017 Radha Feldman [facility] 8 12:59:59 Acute non-ST segment elevation myocardial infarction 980059556 Active 2017 Radha Feldman [facility] 8 13:00:32 Problem Notes None recorded. Procedures Surgical History Date Name Laterality Status Provider Name and Address Organization Details Recorded Time Cabg vein three completed Radha Feldman [facility] 03/12/2018 17:28:10 Imaging Results None recorded. Procedure Notes None recorded. Medical Equipment None [...] Not Available Vitals Date Recorded Body height Provider Name an d Address Organization Details Last Updated DateTime 12/14/2022 160.02 cm Julio César Butts [facility] 12/14/2022 12:47:59 Date Recorded Heart rate Oxygen saturation Oxygen saturation in Arterial blood by Pulse oximetry Body mass index (BMI) Body weight Systolic blood pressure Diastolic blood pressure Provider Name and Address Organization Details Last Updated DateTime 3 71 /min 94 % 94 % 22.1 kg/m2 86288.0 5 g 116 mm[Hg] 78 mm[Hg] Ayaan Wiggins [facility] 3 13:41:02 Date Recorded Body height Body mass index (BMI) Body weight Heart rate Oxygen saturation Oxygen saturation in Arterial blood by Pulse oximetry Systolic blood pressure Diastolic blood pressure Provider Name and Address Organization Details Last Updated DateTime 2 160.02 cm 22 kg/m2 49369.4 5 g 71 /min 98 % 98 % 110 mm[Hg] 72 mm[Hg] Julio César Benjamín [facility] 2 11:51:39 Date Recorded Body height Body mass index (BMI) Body weight Heart rate Respiratory rate Oxygen saturation Oxygen saturation in Arterial blood by Pulse oximetry Systolic blood pressure Diastolic blood pressure Provider Name and Address Organization Details Last Updated DateTime 2 160.02 cm 21.4 kg/m2 99861.6 8 g 78 /min 16 /min 93 % 93 % 116 mm[Hg] 68 mm[Hg] Julio César Benjamín [facility] 2 11:54:31 Date Recorded Body height Body mass index (BMI) Body weight Heart rate Oxygen saturation Oxygen saturation in Arterial blood by Pulse oximetry Systolic blood pressure Diastolic blood pressure Provider Name and Address Organization Details Last Updated DateTime 1 160.02 cm 22.7 kg/m2 78032.8 2 g 67 /min 98 % 98 % 118 mm[Hg] 70 mm[Hg] Bety [facility] 1 12:02:33 Date Recorded Body height Body mass index (BMI) Body weight Heart rate Oxygen saturation Oxygen saturation in Arterial blood by Pulse oximetry Systolic blood pressure Diastolic blood pressure Provider Name and Address Organization Details Last Updated DateTime 1 160.02 cm 23.6 kg/m2 28079.7 9 g 78 /min 97 % 97 % 109 mm[Hg] 71 mm[Hg] [facility] 12:[facility]:57 Social History Question Answer Notes LastModified by Organizat ion Details LastModified Time Tobacco Smoking Status Former Smoker Not Available [employer] 09/08/2020 03:30:40 What Is Your Level Of Caffeine Consumption? None [id number] Information not available 09/08/2020 How Much Tobacco Do You Chew? None [id number] Information not available 09/08/2020 What Type Of Diet Are You Following? REGULAR [id number] Information not available 09/08/2020 Which Illicit Or Recreational Drugs Have You Used? No [id number] Information not available 09/08/2020 Live Alone Or With Others? With Others [email or web address] Information not available 03/14/2018 Marital Status [email or web address] Informatio n not available 03/14/2018 What Was The Date Of Your Most Recent Tobacco Screening? 03/06/2019 [id number] Information not available 09/08/2020 How Many Children Do You Have? 2 [id number] Information not available 09/08/2020 How Much Tobacco Do You Smoke? No [id number] Information not available 09/08/2020 General Stress Level Low [email or web address] Information not available 03/14/2018 How Many Years Have You Smoked Tobacco? 6 Quit 1977 [id number] Information not available 09/08/2020 Sex: Unknown Functional Status Question Answer Note LastModified by Organizat ion Details LastModified Time What is your level of alcohol consumption? Occasional [id number] Information not available 09/08/2020 Do you or have you ever used smokeless tobacco? Former smokeless tobacco user [id number] Information not available 09/08/2020 Do you or have you ever used e-cigarettes or vape? Never used electronic cigarettes [id number] Information not available 09/08/2020 What is your exercise level? Occasional [id number] Information not available 09/08/2020 Mental Status None [...] Not available 03/12/2018 17:18:51 Mother Heart disease [email or web address] Not available 2017 13:37:34 Father Cerebrovascu lar accident deceas ed [email or web address] Not available 03/12/2018 17:18:01 Maternal Grandmother Heart disease [email or web address] Not available 2017 13:37:34 Maternal Aunt Hypertensive disorder [email or web address] Not available 2017 13:37:59 Medical History Condition Response Coronary Artery Disease Y Cancer Y Hyperlipidemia Y GERD/Reflux Y Gynecological HistoryNo gynecological history recorded. Obstetrics History GPAL:G 0 P 0 0 0 0 Past Encounters Encounter ID Performer Location Encounter Start Date Encounter Closed Date Diagnosis/Indication Diagnosis SNOMED-CT Code Diagnosis ICD10 Code Diagnosis Note [id number] Ayaan Wiggins MD [place] OFFICE [address] [place] [address] 03/14/2018 12:39:12 03/14/2018 15:44:06 Coronary arteriosclerosis 78586581 I25.10 s/p CABG x 3v., 02/05/18 done in ([place] to anterior desending coronary artery, left radial artery to obtuse marginal coronary artery, reverse saphenous vein graft to second diagonal coronary artery. Continue ASA, statin. Was on metoprolol tartrate 50 mg bid but was decreased to 25 mg bid due to dizziness mid February 2018. Hyperlipidemia 25132276 E78.5 LDL 48 01/2018. Continue statin. Needs to keep LDL less than 70, and HDL more than 40. Acute non- ST segment elevation myocardial infarction 396190806 I21.4 On 02/02/18 prior to CABG. Continue ASA and statin. Increased blood pressure 87324954 R03.0 Blood pressure is elevated today, but this is only one reading, will keep close follow up, and consider medication change if blood pressure is still elevated next visit. BP diary. [id number] Marc Pabon MD [place] OFF[facility] [address] [place] [address] 04/03/2018 13:48:49 04/04/2018 11:06:13 Coronary arteriosclerosis 46959344 I25.10 s/p CABG x 3v., 02/05/18 done in ([place] to anterior decending coronary artery, left radial artery to obtuse marginal coronary artery, reverse saphenous vein graft to second diagonal coronary artery. Continue ASA, statin. Was on metoprolol tartrate 50 mg bid but was decreased to 25 mg bid due to dizziness mid February 2018. Hyperlipidemia 17912701 E78.5 LDL 48 01/2018. Continue statin. Needs to keep LDL less than 70, and HDL more than 40.Will check CPK Acute non- ST segment elevation myocardial infarction 023633197 I21.4 On 02/02/18 prior to CABG. Continue ASA and statin. Increased blood pressure 72523168 R03.0 Well controlled . Peripheral arterial occlusive disease 218111098 I73.9 with claudicati onsWill get arterial doppler, to evaluate severity of peripheral vascular disease [id number] Ayaan Wiggins MD [place] OFF[facility] [address] [place] [address] 04/18/2018 11:05:26 04/19/2018 11:39:30 Edema 070104390 R60.9 Reports intermitte nt swelling. Absent on exam. Coronary arteriosclerosis 64187710 I25.10 s/p CABG x 3v., 02/05/18 ([place] to anterior decending coronary artery, left radial artery to obtuse marginal coronary artery, reverse saphenous vein graft to second diagonal coronary artery). Continue ASA, statin. Was on metoprolol tartrate 50 mg bid but was decreased to 25 mg bid due to dizziness mid February 2018. Hyperlipidemia 05006380 E78.5 LDL 48 01/2018. Needs to keep LDL less than 70, and HDL more than 40. CPK 65 on 04/03/18. Having bilateral resting leg/calf cramping, will switch Atorvastat in 40 mg to Livalo 2 mg qd 04/18/18.CM P/FLP/CPK in 1 mo. Acute non- ST segment elevation myocardial infarction 759201163 I21.4 On 02/02/18 prior to CABG. Continue ASA and statin. Increased blood pressure 35397639 R03.0 Patient's blood pressure is somewhat well-contr olled on present medical therapy. Patient is tolerating , without difficulty , the current medication s. I have made the following changes to the current regimen. Patient is advised to maintain a blood pressure diary. Patient was advised to eat a low-sodium diet (2 grams sodium or less daily). Stopped isosorbide dinitrate which she was taking once daily in PM and replaced with isosorbide mononitrat e 30 mg qd 04/18/18. Peripheral arterial occlusive disease 188998487 I73.9 With resolved claudicati on. Had ARTERIAL DOPPLER on 04/10/18 with normal ankle branchial index. No significan t lower extremity peripheral arterial disease detected. Cramp in lower limb 4499 15518 R25.2 cramping pains. Had ARTERIAL DOPPLER on 04/10/18 with normal ankle branchial index. No significan t lower extremity peripheral arterial disease detected. Will try switching statins, Atorvastat in to Livalo. On examina tion - carotid bruit 185622531 R09.89 [place]. [id number] Ayaan Wiggins MD [place] OFFICE [facility] [place] [address] 05/16/2018 14:00:36 05/18/2018 10:46:30 Coronary arteriosclerosis 03574062 I25.10 s/p CABG x 3v., 02/05/18 ([place] to anterior decending coronary artery, left radial artery to obtuse marginal coronary artery, reverse saphenous vein graft to second diagonal coronary artery). Continue ASA, statin. Was on metoprolol tartrate 50 mg bid but was decreased to 25 mg bid due to dizziness mid February 2018. Hyperlipidemia 44426837 E78.5 LDL 48 01/2018. Needs to keep LDL less than 70, and HDL more than 40. CPK 65 on 04/03/18. Having bilateral resting leg/calf cramping, switched Atorvastat in 40 mg to Livalo 2 mg qd. Had LDL 108 05/11/18. Increased Livalo to 4 mg qd 05/16/18. Obtain FLP 4 wks. Increased blood pressure 13599821 R03.0 Patient's blood pressure is well-contr olled on present medical therapy. Patient is tolerating , without difficulty , the current medication s. I have not made changes to the current regimen. Patient is advised to maintain a blood pressure diary. Patient was advised to eat a low-sodium diet (2 grams sodium or less daily). Stopped isosorbide dinitrate which she was taking once daily in PM and replaced with isosorbide mononitrat e 30 mg qd 04/18/18. Cramp in lower limb 4499 57626 R25.2 Cramping pains, improving. Had ARTERIAL DOPPLER on 04/10/18 with normal ankle branchial index. No significan t lower extremity peripheral arterial disease detected. Will try switching statins, Atorvastat in to Livalo; with less cramping now. Edema 788808167 R60.9 Reports intermitte nt swelling. Absent on exam. Acute non- ST segment elevation myocardial infarction 918124208 I21.4 On 02/02/18 prior to CABG. Continue ASA and statin. Peripheral arterial occlusive disease 815333179 I73.9 With resolved claudicati on. Had ARTERIAL DOPPLER on 04/10/18 with normal ankle branchial index. No significan t lower extremity peripheral arterial disease detected. On examina tion - carotid bruit 354579803 R09.89 Right carotid bruit. Had carotid U/S 05/03/18: mild right ICA stenosis with <50% stenosis and very mild <15% diameter stenosis on left ICA. F/u 12 mo. [id number] Ayaan Wiggins MD [place] [facility] [address] [place] [address] 06/20/2018 12:18:32 11/09/2018 10:31:48 Coronary arteriosclerosis 23960449 I25.10 s/p CABG x 3v., 02/05/18 ([place] to anterior decending coronary artery, left radial artery to obtuse marginal coronary artery, reverse saphenous vein graft to second diagonal coronary artery). Continue ASA, statin. Was on metoprolol tartrate 50 mg bid but was decreased to 25 mg bid due to dizziness mid February 2018. Hyperlipidemia 63503423 E78.5 LDL 48 01/2018. Needs to keep [...] 2 gm bid 06/20/18. Increased blood pressure 06324508 R03.0 Patient's blood pressure is well-contr olled on present medical therapy. Patient is tolerating , without difficulty , the current medication s. I have not made changes to the current regimen. Patient is advised to maintain a blood pressure diary. Patient was advised to eat a low-sodium diet (2 grams sodium or less daily). Stopped isosorbide dinitrate which she was taking once daily in PM and replaced with isosorbide mononitrat e 30 mg qd 04/18/18. Cramp in lower limb 4499 36044 R25.2 Cramping pains, improving. Had ARTERIAL DOPPLER on 04/10/18 with normal ankle branchial index. No significan t lower extremity peripheral arterial disease detected. Will try switching statins, Atorvastat in to Livalo to rosuvastat in. Edema 594169793 R60.9 Reports intermitte nt swelling. Absent on exam. Acute non- ST segment elevation myocardial infarction 718215166 I21.4 On 02/02/18 prior to CABG. Continue ASA and statin. Peripheral arterial occlusive disease 654092929 I73.9 With resolved claudicati on. Had ARTERIAL DOPPLER on 04/10/18 with normal ankle branchial index. No significan t lower extremity peripheral arterial disease detected. On examina tion - carotid bruit 808351616 R09.89 Right carotid bruit. Had carotid U/S 05/03/18: mild right ICA stenosis with <50% stenosis and very mild <15% diameter stenosis on left ICA. F/u 12 mo. [id number] Ayaan Wiggins MD [place] OFF[facility] [place] [address] 08/01/2018 12:05:46 08/01/2018 13:59:36 Coronary arteriosclerosis 45066197 I25.10 s/p CABG x 3v., 02/05/18 ([place] to anterior decending coronary artery, left radial artery to obtuse marginal coronary artery, reverse saphenous vein graft to second diagonal coronary artery). Continue ASA, statin. Was on metoprolol tartrate 50 mg bid but was decreased to 25 mg bid due to dizziness mid February 2018. Changed to metoprolol succinate 50 mg qd 08/01/18. Hyperlipidemia 20321999 E78.5 LDL 48 01/2018. Needs to keep [...] CPK.Obtain FLP 1 mo. Increased blood pressure 12112295 R03.0 Patient's blood pressure is well-contr olled on present medical therapy. Patient is tolerating , without difficulty , the current medication s. I have not made changes to the current regimen. Patient is advised to maintain a blood pressure diary. Patient was advised to eat a low-sodium diet (2 grams sodium or less daily). Stopped isosorbide dinitrate which she was taking once daily in PM and replaced with isosorbide mononitrat e 30 mg qd 04/18/18. Cramp in lower limb 4499 90820 R25.2 Cramping pains, improving. Had ARTERIAL DOPPLER on 04/10/18 with normal ankle branchial index. No significan t lower extremity peripheral arterial disease detected. Will try switching statins, Atorvastat in to Livalo to rosuvastat in. Edema 581745027 R60.9 Reports intermitte nt swelling. Absent on exam. Acute non- ST segment elevation myocardial infarction 071415671 I21.4 On 02/02/18 prior to CABG. Continue ASA and statin. Peripheral arterial occlusive disease 979536716 I73.9 With resolved claudicati on. Had ARTERIAL DOPPLER on 04/10/18 with normal ankle branchial index. No significan t lower extremity peripheral arterial disease detected. On examina tion - carotid bruit 029942438 R09.89 Right carotid bruit. Had carotid U/S 05/03/18: mild right ICA stenosis with <50% stenosis and very mild <15% diameter stenosis on left ICA. F/u 12 mo. [id number] Ayaan Wiggins MD [place] [facility] [address] [place] [address] 09/05/2018 11:58:44 09/05/2018 13:15:17 Coronary arteriosclerosis 27789894 I25.10 s/p CABG x 3v., 02/05/18 ([place] to anterior decending coronary artery, left radial artery to obtuse marginal coronary artery, reverse saphenous vein graft to second diagonal coronary artery). Continue ASA, statin. Was on metoprolol tartrate 50 mg bid but was decreased to 25 mg bid due to dizziness mid February 2018. Changed to metoprolol succinate 50 mg qd 08/01/18. Hyperlipidemia 28337841 E78.5 LDL 48 01/2018. Needs to keep [...] insurance approval still pending. Increased blood pressure 63858448 R03.0 Patient's blood pressure is well-contr olled on present medical therapy. Patient is tolerating , without difficulty , the current medication s. I have not made changes to the current regimen. Patient is advised to maintain a blood pressure diary. Patient was advised to eat a low-sodium diet (2 grams sodium or less daily). Stopped isosorbide dinitrate which she was taking once daily in PM and replaced with isosorbide mononitrat e 30 mg qd 04/18/18. Cramp in lower limb 4499 15885 R25.2 Cramping pains, recurrent. Had ARTERIAL DOPPLER on 04/10/18 with normal ankle branchial index. No significan t lower extremity peripheral arterial disease detected. Will try switching statins, Atorvastat in to Livalo to rosuvastat in, then back to 10 mg Crestor 09/05/18. 08/29/18: TC 179 ,TG 112 , HDL 63, LDL 94, CK 132 normal. Normal K and Mg. Edema 868171444 R60.9 Reports intermitte nt swelling. Absent on exam. Acute non- ST segment elevation myocardial infarction 693275677 I21.4 On 02/02/18 prior to CABG. Continue ASA and statin. Peripheral arterial occlusive disease 259779861 I73.9 With resolved claudicati on. Had ARTERIAL DOPPLER on 04/10/18 with normal ankle branchial index. No significan t lower extremity peripheral arterial disease detected. On examina tion - carotid bruit 602173354 R09.89 Right carotid bruit. Had carotid U/S 6/28/18: mild right ICA stenosis with <50% stenosis and very mild <15% diameter stenosis on left ICA. F/u 12 mo. Needs to keep LDL less than 70, and HDL more than 40. [id number] Ayaan Wiggins MD [place] [facility] [address] [place] [address] 10/24/2018 14:15:50 11/02/2018 13:02:39 Coronary arteriosclerosis 51758513 I25.10 s/p CABG x 3v., 02/05/18 ([place] to anterior decending coronary artery, left radial artery to obtuse marginal coronary artery, reverse saphenous vein graft to second diagonal coronary artery). Continue ASA, statin. Was on metoprolol tartrate 50 mg bid but was decreased to 25 mg bid due to dizziness mid February 2018. Changed to metoprolol succinate 50 mg qd 08/01/18. Hyperlipidemia 93779194 E78.5 LDL 48 01/2018. Needs to keep [...] insurance approval still pending. Increased blood pressure 14309756 R03.0 Patient's blood pressure is well-contr olled on present medical therapy. Patient is tolerating , without difficulty , the current medication s. I have not made changes to the current regimen. Patient is advised to maintain a blood pressure diary. Patient was advised to eat a low-sodium diet (2 grams sodium or less daily). Stopped isosorbide dinitrate which she was taking once daily in PM and replaced with isosorbide mononitrat e 30 mg qd 04/18/18. Cramp in lower limb 4499 79010 R25.2 Cramping pains, recurrent, improving. Had ARTERIAL DOPPLER on 04/10/18 with normal ankle branchial index. No significan t lower extremity peripheral arterial disease detected. Tried switching statins, Atorvastat in to Livalo to rosuvastat in, then back to 10 mg Crestor 09/05/18. 08/29/18: TC 179 ,TG 112 , HDL 63, LDL 94, CK 132 normal. Normal K and Mg. Edema [id number] R60.9 Reports intermitte nt swelling. Minimal on exam. Acute non- ST segment elevation myocardial infarction [id number] I21.4 On 02/02/18 prior to CABG. Continue ASA and statin. Peripheral arterial occlusive disease 039480138 I73.9 With resolved claudicati on. Had ARTERIAL DOPPLER on 04/10/18 with normal ankle branchial index. No significan t lower extremity peripheral arterial disease detected. On examina tion - carotid bruit [id number] R09.89 Right carotid bruit. Had carotid U/S 05/03/18: mild right ICA stenosis with <50% stenosis and very mild <15% diameter stenosis on left ICA. F/u 12 mo 04/2019. Needs to keep LDL less than 70, and HDL more than 40. [id number] Ayaan Wiggins MD [facility] [address] [place] [address] 01/21/2019 15:45:03 01/21/2019 17:49:00 Coronary arteriosclerosis [id number] I25.10 s/p CABG x 3v., 02/05/18 (ANDREW to anterior decending coronary artery, left radial artery to obtuse marginal coronary artery, reverse saphenous vein graft to second diagonal coronary artery). Continue ASA, statin. Was on metoprolol tartrate 50 mg bid but was decreased to 25 mg bid due to dizziness mid February 2018. Changed to metoprolol succinate 50 mg qd 08/01/18. Hyperlipidemia 00219056 E78.5 LDL 48 01/2018. Needs to keep [...] to achieve LDL <70. Increased blood pressure 73558410 R03.0 Patient's blood pressure is somewhat well-contr olled on present medical therapy. Patient is tolerating , without difficulty , the current medication s. I have not made changes to the current regimen. Patient is advised to maintain a blood pressure diary. Patient was advised to eat a low-sodium diet (2 grams sodium or less daily). Stopped isosorbide dinitrate which she was taking once daily in PM and replaced with isosorbide mononitrat e 30 mg qd 04/18/18. Cramp in lower limb 4499 61579 R25.2 Cramping pains, recurrent, improving. Had ARTERIAL [...] intake. BMP, Mg in 3 weeks. Edema 370577750 R60.9 Reports intermitte nt swelling. Minimal on exam. Acute non- ST segment elevation myocardial infarction 249576376 I21.4 On 02/02/18 prior to CABG. Continue ASA and statin. Peripheral arterial occlusive disease 491387359 I73.9 With resolved claudicati on. Had ARTERIAL DOPPLER on 04/10/18 with normal ankle branchial index. No significan t lower extremity peripheral arterial disease detected. On examina tion - carotid bruit 343677957 R09.89 Right carotid bruit. Had carotid U/S 05/03/18: mild right ICA stenosis with <50% stenosis and very mild <15% diameter stenosis on left ICA. F/u 12 mo 04/2019. Needs to keep LDL less than 70, and HDL more than 40. [id number] Ayaan Wiggins MD [facility] [address] [place] [address] 03/06/2019 10:44:08 03/06/2019 11:51:17 Coronary arteriosclerosis 18383364 I25.10 s/p CABG x 3v., 02/05/18 (ANDREW to anterior decending coronary artery, left radial artery to obtuse marginal coronary artery, reverse saphenous vein graft to second diagonal coronary artery). Continue ASA, statin. Was on metoprolol tartrate 50 mg bid but was decreased to 25 mg bid due to dizziness mid February 2018. Changed to metoprolol succinate 50 mg qd 08/01/18. Hyperlipidemia 16388643 E78.5 LDL 48 01/2018. Needs to keep [...] FLP in 1 mo. Increased blood pressure 64343886 R03.0 Patient's blood pressure is somewhat well-contr olled on present medical therapy. Patient is tolerating , without difficulty , the current medication s. I have not made changes to the current regimen. Patient is advised to maintain a blood pressure diary. Patient was advised to eat a low-sodium diet (2 grams sodium or less daily). Stopped isosorbide dinitrate which she was taking once daily in PM and replaced with isosorbide mononitrat e 30 mg qd 04/18/18. Consider HCTZ if BP diary elevated. Cramp in lower limb 4499 32245 R25.2 Cramping pains, recurrent, improving. Had ARTERIAL [...] Creati 0.64, K 4.4, ,Mag 1.9 Edema 201155638 R60.9 Improved. Reports intermitte nt swelling. Minimal on exam. Acute non- ST segment elevation myocardial infarction [id number] I21.4 On 02/02/18 prior to CABG. Continue ASA and statin. Peripheral arterial occlusive disease 579659001 I73.9 With resolved claudicati on. Had ARTERIAL DOPPLER on 04/10/18 with normal ankle branchial index. No significan t lower extremity peripheral arterial disease detected. On examina tion - carotid bruit 583796588 R09.89 Right carotid bruit. Had carotid U/S 05/03/18: mild right ICA stenosis with <50% stenosis and very mild <15% diameter stenosis on left ICA. F/u 12 mo 04/2019. Needs to keep LDL less than 70, and HDL more than 40. Obtain carotid U/S F/u 12 mo 04/2019. [id number] Ayaan Wiggins MD [facility] [address] [place] [address] 05/22/2019 11:35:56 05/22/2019 13:42:34 Coronary arteriosclerosis 00172681 I25.10 s/p CABG x 3v., 02/05/18 (ANDREW to anterior decending coronary artery, left radial artery to obtuse marginal coronary artery, reverse saphenous vein graft to second diagonal coronary artery). Continue ASA, statin, Repatha. Was on metoprolol tartrate 50 mg bid but was decreased to 25 mg bid due to dizziness mid February 2018. Changed to metoprolol succinate 50 mg qd 08/01/18. Hyperlipidemia 00421045 E78.5 LDL 48 01/2018. Needs to keep [...] HDL 66, LDL 32. Increased blood pressure 21559933 R03.0 Patient's blood pressure is well-contr olled on present medical therapy. Patient is tolerating , without difficulty , the current medication s. I have not made changes to the current regimen. Patient is advised to maintain a blood pressure diary. Patient was advised to eat a low-sodium diet (2 grams sodium or less daily). Stopped isosorbide dinitrate which she was taking once daily in PM and replaced with isosorbide mononitrat e 30 mg qd 04/18/18. Consider HCTZ if BP diary elevated. Cramp in lower limb 4499 17688 R25.2 Cramping pains, recurrent, improving. Had ARTERIAL [...] Creati 0.64, K 4.4, ,Mag 1.9 Edema 961652078 R60.9 Improved. Reports intermitte nt swelling. Minimal on exam. Acute non- ST segment elevation myocardial infarction 150475316 I21.4 On 02/02/18 prior to CABG. Continue ASA and statin. Peripheral arterial occlusive disease 869282649 I73.9 With resolved claudicati on. Had ARTERIAL DOPPLER on 04/10/18 with normal ankle branchial index. No significan t lower extremity peripheral arterial disease detected. On examina tion - carotid bruit 678229483 R09.89 Right carotid bruit. Had carotid U/S 05/03/18: mild right ICA stenosis with <50% stenosis and very mild <15% diameter stenosis on left ICA. F/u 12 mo 04/2019. Needs to keep LDL less than 70, and HDL more than 40. Obtained carotid U/S F/u 12 mo 04/2019, result pending. [id number] Ayaan Wiggins MD [facility] [address] [place] [address] 11/27/2019 10:15:55 11/27/2019 11:28:22 Coronary arteriosclerosis 51221801 I25.10 s/p CABG x 3v., 02/05/18 (ANDREW [...] metoprolol succinate 50 mg qd 08/01/18. Hyperlipidemia 63621209 E78.5 LDL 48 01/2018. Needs to keep [...] HDL 66, LDL 32. Increased blood pressure 66710010 R03.0 Patient's blood pressure is well-contr olled on present medical therapy. Patient is tolerating , without difficulty , the current medication s. I have not made changes to the current regimen. Patient is advised to maintain a blood pressure diary. Patient was advised to eat a low-sodium diet (2 grams sodium or less daily). Stopped isosorbide dinitrate which she was taking once daily in PM and replaced with isosorbide mononitrat e 30 mg qd 04/18/18. Cramp in lower limb 4499 50905 R25.2 Cramping pains, recurrent, improving. Had ARTERIAL [...] 4.4, ,Mag 1.9. Obtain BMP, Mg. Edema 011148281 R60.9 Resolved. Low Na diet. Acute non- ST segment elevation myocardial infarction 183312120 I21.4 On 02/02/18 prior to CABG. Continue ASA and statin. Peripheral arterial occlusive disease 156882618 I73.9 With resolved claudicati on. Had ARTERIAL DOPPLER on 04/10/18 with normal ankle branchial index. No significan t lower extremity peripheral arterial disease detected. On examina tion - carotid bruit 373642330 R09.89 Right carotid bruit. Had carotid U/S [...] 04/23, there are no changes. Continue ASA. [id number] Ayaan Wiggins MD [facility] [address] [place] [phone] 02/26/2020 12:12:45 02/26/2020 14:50:50 Coronary arteriosclerosis 25177647 I25.10 s/p CABG x 3v., 02/05/18 (ANDREW [...] metoprolol succinate 50 mg qd 08/01/18. Hyperlipidemia 81828398 E78.5 LDL 48 01/2018. Needs to keep [...] dose of fish oil. Increased blood pressure 99747743 R03.0 Patient's blood pressure is not well-contr olled on present medical therapy. Patient is tolerating , without difficulty , the current medication s. I have not made changes to the current regimen. Patient is advised to maintain a blood pressure diary. Patient was advised to eat a low-sodium diet (2 grams sodium or less daily). Stopped isosorbide dinitrate which she was taking once daily in PM and replaced with isosorbide mononitrat e 30 mg qd 04/18/18. Cramp in lower limb 4499 44360 R25.2 Cramping pains, recurrent, improving. Had ARTERIAL [...] , CR 0.69 ,AST 30,ALT 27 Edema 672940189 R60.9 Resolved. Low Na diet. Acute non- ST segment elevation myocardial infarction 759023472 I21.4 On 02/02/18 prior to CABG. Continue ASA and statin. Peripheral arterial occlusive disease 112899701 I73.9 With resolved claudicati on. Had ARTERIAL DOPPLER on 04/10/18 with normal ankle branchial index. No significan t lower extremity peripheral arterial disease detected. On examina tion - carotid bruit 096626882 R09.89 Right carotid bruit. Had carotid U/S [...] 04/23, there are no changes. Continue ASA. [id number] Ayaan Wiggins MD [facility] [place] [address] 05/27/2020 11:34:54 05/27/2020 12:21:35 Coronary arteriosclerosis 31846001 I25.10 s/p CABG x 3v., 02/05/18 (ANDREW [...] metoprolol succinate 50 mg qd 08/01/18. Hyperlipidemia 53925899 E78.5 Needs to keep LDL less than [...] months, FLP, CMP, Mg. Increased blood pressure 92069219 R03.0 Patient's blood pressure is well-contr olled on present medical therapy. Patient is tolerating , without difficulty , the current medication s. I have not made changes to the current regimen. Patient is advised to maintain a blood pressure diary. Patient was advised to eat a low-sodium diet (2 grams sodium or less daily). Stopped isosorbide dinitrate which she was taking once daily in PM and replaced with isosorbide mononitrat e 30 mg qd 04/18/18. Cramp in lower limb 4499 96167 R25.2 Cramping pains, improving, rare, worse with [...] , CR 0.69 ,AST 30,ALT 27 Edema 038751257 R60.9 Resolved. Low Na diet. Acute non- ST segment elevation myocardial infarction 199400404 I21.4 On 02/02/18 prior to CABG. Continue ASA and Repatha/st atin. Peripheral arterial occlusive disease 571715283 I73.9 With resolved claudicati on. Had ARTERIAL DOPPLER on 04/10/18 with normal ankle branchial index. No significan t lower extremity peripheral arterial disease detected. On examina tion - carotid bruit 867531416 R09.89 Right carotid bruit. Had carotid U/S [...] Continue ASA. Obtain repeat carotid U/S 05/2021. [id number] Ayaan Wiggins MD [facility] [address] [place] [address] 11/18/2020 11:19:45 11/18/2020 12:59:55 Coronary arteriosclerosis 03413909 I25.10 s/p CABG x 3v., 02/05/18 (ANDREW [...] metoprolol succinate 50 mg qd 08/01/18. Hyperlipidemia 53022688 E78.5 Needs to keep LDL less than [...] months, FLP, CMP, Mg. Increased blood pressure 88179496 R03.0 Patient's blood pressure is well-contr olled on present medical therapy. Patient is tolerating , without difficulty , the current medication s. I have not made changes to the current regimen. Patient is advised to maintain a blood pressure diary. Patient was advised to eat a low-sodium diet (2 grams sodium or less daily). Stopped isosorbide dinitrate which she was taking once daily in PM and replaced with isosorbide mononitrat e 30 mg qd 04/18/18. Cramp in lower limb 4499 36754 R25.2 Resolved Had ARTERIAL DOPPLER on 04/10/18 [...] GLU 87,BUN 18,Cr 0.74,AST 29,ALT 22, Edema 451737889 R60.9 Resolved. Low Na diet. Acute non- ST segment elevation myocardial infarction 633670911 I21.4 On 02/02/18 prior to CABG. Continue ASA and Repatha/st atin. Peripheral arterial occlusive disease 365098322 I73.9 With resolved claudicati on. Had ARTERIAL DOPPLER on 04/10/18 with normal ankle branchial index. No significan t lower extremity peripheral arterial disease detected. On examina tion - carotid bruit 088307886 R09.89 Right carotid bruit. Had carotid U/S [...] Continue ASA. Obtain repeat carotid U/S 05/2021. [id number] Ayaan Wiggins MD [facility] [address] [place] [address] 06/16/2021 15:24:25 06/16/2021 17:02:40 Coronary arteriosclerosis 51965771 I25.10 s/p CABG x 3v., 02/05/18 (ANDREW [...] metoprolol succinate 50 mg qd 08/01/18. Hyperlipidemia 05447719 E78.5 Needs to keep LDL less than [...] CMP, Mg, CBC, TSH. Increased blood pressure 27992341 R03.0 Patient's blood pressure is well-contr olled on present medical therapy. Patient is tolerating , without difficulty , the current medication s. I have not made changes to the current regimen. Patient is advised to maintain a blood pressure diary. Patient was advised to eat a low-sodium diet (2 grams sodium or less daily). Stopped isosorbide dinitrate which she was taking once daily in PM and replaced with isosorbide mononitrat e 30 mg qd 04/18/18. Cramp in lower limb 4499 84851 R25.2 Resolved Had ARTERIAL DOPPLER on 04/10/18 [...] GLU 87,BUN 18,Cr 0.74,AST 29,ALT 22, Edema 485700855 R60.9 Resolved. Low Na diet. Acute non- ST segment elevation myocardial infarction 646566462 I21.4 On 02/02/18 prior to CABG. Continue ASA and Repatha/st atin. Peripheral arterial occlusive disease 687163822 I73.9 With resolved claudicati on. Had ARTERIAL DOPPLER on 04/10/18 with normal ankle branchial index. No significan t lower extremity peripheral arterial disease detected. On examina tion - carotid bruit 009823565 R09.89 Right carotid bruit. Had US, carotid [...] repeat carotid U/S 02/2023. Tricuspid valve regurgitation 220345122 I07.1 Mild-moder ate. Had ECHO done in 02/02/18 showed EF 55% , Mild to moderate tricuspid regurgitat ion. Mild mitral valve regurgitat ion. Obtain echo to evaluate for structural /functiona l disease, reassess extent of TR. [id number] Ayaan Wiggins MD [facility] [address] [place] [address] 08/25/2021 11:52:14 08/25/2021 12:55:54 Coronary arteriosclerosis 66455413 I25.10 s/p CABG x 3v., 02/05/18 (ANDREW [...] qd 08/01/18. Anticipate stress test 02/2022. Hyperlipidemia 81687903 E78.5 Needs to keep LDL less than [...] qHS 08/25/21. Obtain FLP. Increased blood pressure 17907614 R03.0 Patient's blood pressure is well-contr olled on present medical therapy. Patient is tolerating , without difficulty , the current medication s. I have not made changes to the current regimen. Patient is advised to maintain a blood pressure diary. Patient was advised to eat a low-sodium diet (2 grams sodium or less daily). Stopped isosorbide dinitrate which she was taking once daily in PM and replaced with isosorbide mononitrat e 30 mg qd 04/18/18. Cramp in lower limb 7959 35291 R25.2 Intermitte nt. Had ARTERIAL DOPPLER on [...] especially sports drinks. Obtain BMP, Mg. Edema 413160522 R60.9 Resolved. Low Na diet. Had echo 08/09/21: normal LV size and thickness, LVEF 65-70%, grade 2 DD. trace TR, RVSP 11. Acute non- ST segment elevation myocardial infarction 482674287 I21.4 On 02/02/18 prior to CABG. Continue ASA and Repatha/st atin. Peripheral arterial occlusive disease 614960245 I73.9 With resolved claudicati on. Had ARTERIAL DOPPLER on 04/10/18 with normal ankle branchial index. No significan t lower extremity peripheral arterial disease detected. On examina tion - carotid bruit 748244403 R09.89 Right carotid bruit. Had US, carotid [...] repeat carotid U/S 02/2023. Tricuspid valve regurgitation 180600772 I07.1 Mild-moder ate previously , improved to trace. Had echo 08/09/21: normal LV size and thickness, LVEF 65-70%, grade 2 DD. trace TR, RVSP 11. Had ECHO done in 02/02/18 showed EF 55% , Mild to moderate tricuspid regurgitat ion. Mild mitral valve regurgitat ion. [id number] Ayaan Wiggins MD [facility] [address] [place] [address] 11/03/2021 11:35:50 11/03/2021 13:15:13 Coronary arteriosclerosis 69990746 I25.10 s/p CABG x 3v., 02/05/18 (ANDREW [...] stress test 02/2022. Minimize/e liminate meloxicam. Hyperlipidemia 31389472 E78.5 Needs to keep LDL less than [...] on Zetia, results pending. Increased blood pressure 95363127 R03.0 Patient's blood pressure is well-contr olled on present medical therapy. Patient is tolerating , without difficulty , the current medication s. I have not made changes to the current regimen. Patient is advised to maintain a blood pressure diary. Patient was advised to eat a low-sodium diet (2 grams sodium or less daily). Stopped isosorbide dinitrate which she was taking once daily in PM and replaced with isosorbide mononitrat e 30 mg qd 04/18/18. Cramp in lower limb 4499 53639 R25.2 Intermitte nt. At rest. Had ARTERIAL [...] especially sports drinks. Obtain BMP, Mg. Edema 643700657 R60.9 Resolved. Low Na diet. Had echo 08/09/21: normal LV size and thickness, LVEF 65-70%, grade 2 DD. trace TR, RVSP 11. Acute non- ST segment elevation myocardial infarction 373518521 I21.4 On 02/02/18 prior to CABG. Continue ASA and Repatha/st atin. Peripheral arterial occlusive disease 140382002 I73.9 With resolved claudicati on. Had ARTERIAL DOPPLER on 04/10/18 with normal ankle branchial index. No significan t lower extremity peripheral arterial disease detected. On examina tion - carotid bruit 283365831 R09.89 Right carotid bruit. Had US, carotid [...] repeat carotid U/S 02/2023. Tricuspid valve regurgitation 347494144 I07.1 Mild-moder ate previously , improved to trace. Had echo 08/09/21: normal LV size and thickness, LVEF 65-70%, grade 2 DD. trace TR, RVSP 11. Had ECHO done in 02/02/18 showed EF 55% , Mild to moderate tricuspid regurgitat ion. Mild mitral valve regurgitat ion. [id number] Ayaan Wiggins MD [facility] [address] [place] [address] 03/02/2022 11:41:31 03/02/2022 12:32:31 Coronary arteriosclerosis 09156088 I25.10 s/p CABG x 3v., 4/2/18 (ANDREW to anterior decending coronary artery, left [...] mg qd 08/01/18. Minimize/e liminate meloxicam. Hyperlipidemia 03967477 E78.5 Needs to keep LDL less than [...] needs insurance approval again as discussed with chemistry technical officer. Increased blood pressure 82868013 R03.0 Patient's blood pressure is well-contr olled on present medical therapy. Patient is tolerating , without difficulty , the current medication s. I have not made changes to the current regimen. Patient is advised to maintain a blood pressure diary. Patient was advised to eat a low-sodium diet (2 grams sodium or less daily). Stopped isosorbide dinitrate which she was taking once daily in PM and replaced with isosorbide mononitrat e 30 mg qd 04/18/18. Cramp in lower limb 4499 43348 R25.2 Improved. Had ARTERIAL DOPPLER on 04/10/18 [...] CL 104 CA 10.6 MAG 2.3 Edema 051881413 R60.9 Resolved. Low Na diet. Had echo 08/09/21: normal LV size and thickness, LVEF 65-70%, grade 2 DD. trace TR, RVSP 11. Acute non- ST segment elevation myocardial infarction 745014526 I21.4 On 02/02/18 prior to CABG. Continue ASA and Repatha/st atin. Peripheral arterial occlusive disease 961980155 I73.9 With resolved claudicati on. Had ARTERIAL DOPPLER on 04/10/18 with normal ankle branchial index. No significan t lower extremity peripheral arterial disease detected. On examina tion - carotid bruit 947862946 R09.89 Right carotid bruit. Had US, carotid [...] repeat carotid U/S 02/2023. Tricuspid valve regurgitation 908647189 I07.1 Mild-moder ate previously , improved to [...] ago. Given the history, exam findings and intermedia te cardiac risk factors, I feel additional investigat ion is warranted. I have made arrangemen ts in the near future for an exercise stress nuclear test (stress echo not possible due to COPD or obesity). The procedure was discussed with the patient, and risks, benefits, and alternativ e options were explained. Appropriat e labwork has not been performed recently, therefore I have made arrangemen ts for further testing: CBC, BMP, Mg. I have asked the patient to curtail exercise and activities until our investigat ion is complete. I have made the following adjustment s to the present medical regimen. Had treadmill nuclear stress test (PROC) 02/05/20 Stress test: Negative stress test for ischemia. Normal LV function. Abnormal stress test. No previous study to compare. Artifact noted. Average exercise tolerance. Had 12/23/21: CMP: GL 85 BUN 20 CR 0.65 NA 141 POT 5.0 CL 104 CA 10.6 MAG 2.3LIPID: CHOL 241 TRIG 107 HDL 69 LDL 153 [id number] Ayaan Wiggins MD [facility] [address] [place] [address] 06/15/2022 11:49:53 06/15/2022 12:52:40 Coronary arteriosclerosis 87594264 I25.10 s/p CABG x 3v., 02/05/18 (ANDREW [...] mg qd 06/15/22. Obtain CMP, Mg. Hyperlipidemia 05023898 E78.5 Needs to keep LDL less than [...] Obtain FLP, CMP, Mg. Increased blood pressure 52661001 R03.0 Patient's blood pressure is well-contr olled on present medical therapy. Patient is tolerating , without difficulty , the current medication s. I have not made changes to the current regimen. Patient is advised to maintain a blood pressure diary. Patient was advised to eat a low-sodium diet (2 grams sodium or less daily). Stopped isosorbide dinitrate which she was taking once daily in PM and replaced with isosorbide mononitrat e 30 mg qd 04/18/18. Cramp in lower limb 4499 12917 R25.2 Improved. Had ARTERIAL DOPPLER on 04/10/18 [...] CL 104 CA 10.6 MAG 2.3 Edema 839242781 R60.9 Resolved. Low Na diet. Had echo 08/09/21: normal LV size and thickness, LVEF 65-70%, grade 2 DD. trace TR, RVSP 11. Acute non- ST segment elevation myocardial infarction 223139484 I21.4 On 02/02/18 prior to CABG. Continue ASA and Repatha/st atin. Peripheral arterial occlusive disease 833132239 I73.9 With resolved claudicati on. Had ARTERIAL DOPPLER on 04/10/18 with normal ankle branchial index. No significan t lower extremity peripheral arterial disease detected. On examina tion - carotid bruit 198325157 R09.89 Right carotid bruit. Had US, carotid [...] repeat carotid U/S 02/2023. Tricuspid valve regurgitation 512668916 I07.1 Mild-moder ate previously , improved to [...] Average. Had treadmill nuclear stress test (PROC) 4/1/20 Stress test: Negative stress test for ischemia. Normal LV function. Abnormal stress test. No previous study to compare. Artifact noted. Average exercise tolerance. Had 10/28/21: CMP: GL 85 BUN 20 CR 0.65 NA 141 POT 5.0 CL 104 CA 10.6 MAG 2.3LIPID: CHOL 241 TRIG 107 HDL 69 LDL 153 [id number] Ayaan Wiggins MD [facility] [address] [place] [address] 12/14/2022 11:53:49 12/14/2022 13:52:46 Coronary arteriosclerosis 62292513 I25.10 s/p CABG x 3v., 02/05/18 (ANDREW [...] TRIG 110 HDL 65 LDL 62MAG-2.1 Hyperlipidemia 32811161 E78.5 Needs to keep LDL less than [...] HDL 65 LDL 62MAG-2.1 Increased blood pressure 47682478 R03.0 Patient's blood pressure is well-contr olled on present medical therapy. Patient is tolerating , without difficulty , the current medication s. I have not made changes to the current regimen. Patient is advised to maintain a blood pressure diary. Patient was advised to eat a low-sodium diet (2 grams sodium or less daily). Stopped isosorbide dinitrate which she was taking once daily in PM and replaced with isosorbide mononitrat e 30 mg qd 04/18/18. Cramp in lower limb 4499 52480 R25.2 Improved. Had ARTERIAL DOPPLER on 04/10/18 [...] CL 104 CA 10.6 MAG 2.3 Edema [id number] R60.9 Resolved. Low Na diet. Had echo 08/09/21: normal LV size and thickness, LVEF 65-70%, grade 2 DD. trace TR, RVSP 11. Acute non- ST segment elevation myocardial infarction [id number] I21.4 On 02/02/18 prior to CABG. Continue ASA and Repatha/st atin. Peripheral arterial occlusive disease [id number] I73.9 With resolved claudicati on. Had ARTERIAL DOPPLER on 04/10/18 with normal ankle branchial index. No significan t lower extremity peripheral arterial disease detected. On examina tion - carotid bruit [id number] R09.89 Right carotid bruit. Had US, carotid [...] Obtain repeat carotid U/S. Tricuspid valve regurgitation [id number] I07.1 Mild-moder ate previously , improved to [...] Recorded Advance Directives Directive None Recorded Payers Insurance Date Sequence Insurance Name Policy Number Policy Will Covered Member ID Will Member ID Guarantor Name 03/26/2023 1 [employer] [id number] Jagdeep Barr [id number] Jagdeep Barr 02/24/2022 1 [employer] [id number] Jagdeep Barr [id number] Jagdeep Barr Notes Date Note Type Note Provider Name and Address Organization Details Recorded Time 08/25/2021 text/html 08/25/21 CC: Chest pain 61 year-old woman with h/o coronary artery disease s/p CABG x3 (02/05/18), dyslipidemia, cancer (lymphoma, s/p chemo 2004), family history of premature [place], is here for follow up coronary artery [...] AM and PM. Previously,She had NSTEMI at [facility] on 02/02/18 and was transferred to [facility] where she had CABG x 3 [...] TC 113, TG 73, HDL 66, LDL [id number] Glucose 117,BUN 23,Creati 0.64,Na 141,K 4.4,Cl 103,CO2 23,Ca 9.5,Mag 1.9001/09/19: Na 143 ,K 5.4, CL 104 ,CO2 24, GLU 94 , BUN 18 , CR 0.68, AST 25 ,ALT : TC 242 ,TG 229 ,HDL 51 ,LDL 145 ,CK : TC 179 ,TG 112 , HDL 63, LDL 94,CK 3811608/29/18: NA 145 ,K 4.9 ,CL 103, CO2 [...] s/p chemo 2004), family history of premature [place], is here for follow up coronary artery [...] AM and PM. Previously,She had NSTEMI at [facility] on 02/02/18 and was transferred to [facility] where she had CABG x 3 [...] TC 113, TG 73, HDL 66, LDL [id number] Glucose 117,BUN 23,Creati 0.64,Na 141,K 4.4,Cl 103,CO2 23,Ca 9.5,Mag 1.9001/09/19: Na 143 ,K 5.4, CL 104 ,CO2 24, GLU 94 , BUN 18 , CR 0.68, AST 25 ,ALT : TC 242 ,TG 229 ,HDL 51 ,LDL 145 ,CK : TC 179 ,TG 112 , HDL 63, LDL 94,CK 6675608/29/18: NA 145 ,K 4.9 ,CL 103, CO2 [...] Artifact noted. Average exercise tolerance. Ayaan mooney [place] - [facility] 11/03/2021 13:10:38 03/02/2022 text/html 03/02/22 CC: chest pain 61 year-old woman with h/o coronary artery disease s/p CABG x3 (02/05/18), dyslipidemia, cancer (lymphoma, s/p chemo 2004), family history of premature [place], is here for follow up coronary artery [...] AM and PM. Previously,She had NSTEMI at [facility] on 02/02/18 and was transferred to [facility] where she had CABG x 3 [...] TSH 0.707. MG 2.1 lipid panel, blood 43-67-716534/06/21:Na 143,K 4.5,Cl 106,CO2 22,GLU 87,BUN 18,Cr 0.74,AST 29,ALT 22,TC 162,TG 91,LDL 72,HDL 73.lipid panel, blood 05-20-2020 LIPID 05/20/2020 CH 141 TR 118 HDL 54 LDL 63 CMP, serum or plasma 02-19-2020 02/19/20: Na 140 ,K 4.5 , CL 102 ,CO2 25, GLU 95. ,BUN 18 , CR 0.69 ,AST 30,ALT 27 05/15/19: TC 113, TG 73, HDL 66, LDL Glucose 117,BUN 23,Creati 0.64,Na 141,K 4.4,Cl 103,CO2 23,Ca 9.5,Mag 1.9001/09/19: Na 143 ,K 5.4, CL 104 ,CO2 24, GLU 94 , BUN 18 , CR 0.68, AST 25 ,ALT : TC 242 ,TG 229 ,HDL 51 ,LDL 145 ,CK : TC 179 ,TG 112 , HDL 63, LDL 94,CK 3454608/29/18: NA 145 ,K 4.9 ,CL 103, CO2 [...] TR: 162, TC: 188, HDL: 54, LDL: 92003: CK: 4275105/11/18: TC 213, TG 266, HDL 52, LDL 98581 : CK 654 CBC: WBC 9.3, RBC 3.01, HGB 9.4, HCT 28.5, PLT 3434/04/23 BMP: SOD 137, K 4.6, CL 98, CO2 26, GL 107, BUN 20, CR 0.54 Lipid: TR 150, TC 112, LDL 48, HDL FACTOR Xa HEPARIN : 0.67002/02/2018: TC 141, LDL 64, TR 285, HDL 30002/02/2018: SOD 141, K 4.1, CL 105, CO2 29, GL 99, BUN 18, CR 0.60,calcium 8.603: WBC 13, HGB 10.2, HCT 31.5, PLT 84086: PT 12, INR 1.0, PTT 29 US, [...] s/p chemo 2004), family history of premature [place], is here for follow up coronary artery [...] AM and PM. Previously,She had NSTEMI at [facility] on 02/02/18 and was transferred to [facility] where she had CABG x 3 [...] TSH 0.707. MG 2.1 lipid panel, blood [id number]/06/21:Na 143,K 4.5,Cl 106,CO2 22,GLU 87,BUN 18,Cr 0.74,AST 29,ALT 22,TC 162,TG 91,LDL 72,HDL 73.lipid panel, blood 05-20-2020 LIPID 05/20/2020 CH 141 TR 118 HDL 54 LDL 63 CMP, serum or plasma 02-19-2020 02/19/20: Na 140 ,K 4.5 , CL 102 ,CO2 25, GLU 95. ,BUN 18 , CR 0.69 ,AST 30,ALT 27 05/15/19: TC 113, TG 73, HDL 66, LDL [id number] Glucose 117,BUN 23,Creati 0.64,Na 141,K 4.4,Cl 103,CO2 23,Ca 9.5,Mag 1.9001/09/19: Na 143 ,K 5.4, CL 104 ,CO2 24, GLU 94 , BUN 18 , CR 0.68, AST 25 ,ALT : TC 242 ,TG 229 ,HDL 51 ,LDL 145 ,CK : TC 179 ,TG 112 , HDL 63, LDL 94,CK 1351408/29/18: NA 145 ,K 4.9 ,CL 103, CO2 [...] TR: 162, TC: 188, HDL: 54, LDL: 83621: CK: 20004: TC 213, TG 266, HDL 52, LDL 43236 : CK 654 CBC: WBC 9.3, RBC [...] WBC 13, HGB 10.2, HCT 31.5, PLT 94177: PT 12, INR 1.0, PTT 29 US, [...] removal no acute findings Obtained carotid U/S 07/11/19: Antegrade flow noted [...] Artifact noted. Average exercise tolerance. Ayaan Wiggins [place], [place] - [facility] 06/15/2022 12:50:25 12/14/2022 text/html 12/14/22 CC: chest pain 62 year-old woman with h/o coronary artery disease s/p CABG x3 (02/05/18), dyslipidemia, cancer (lymphoma, s/p chemo 2004), family history of premature [place], is here for follow up coronary artery [...] AM and PM. Previously,She had NSTEMI at [facility] on 02/02/18 and was transferred to [facility] where she had CABG x 3 [...] TSH 0.707. MG 2.1 lipid panel, blood 58-59-691255/06/21:Na 143,K 4.5,Cl 106,CO2 22,GLU 87,BUN 18,Cr 0.74,AST 29,ALT 22,TC 162,TG 91,LDL 72,HDL 73.lipid panel, blood 05-20-2020 LIPID 05/20/2020 CH 141 TR 118 HDL 54 LDL 63 CMP, serum or plasma 02-19-2020 02/19/20: Na 140 ,K 4.5 , CL 102 ,CO2 25, GLU 95. ,BUN 18 , CR 0.69 ,AST 30,ALT 27 05/15/19: TC 113, TG 73, HDL 66, LDL [id number] Glucose 117,BUN 23,Creati 0.64,Na 141,K 4.4,Cl 103,CO2 23,Ca 9.5,Mag 1.9001/09/19: Na 143 ,K 5.4, CL 104 ,CO2 24, GLU 94 , BUN 18 , CR 0.68, AST 25 ,ALT : TC 242 ,TG 229 ,HDL 51 ,LDL 145 ,CK : TC 179 ,TG 112 , HDL 63, LDL 94,CK 0382508/29/18: NA 145 ,K 4.9 ,CL 103, CO2 [...] TR: 162, TC: 188, HDL: 54, LDL: 75491: CK: 2181505/11/18: TC 213, TG 266, HDL 52, LDL 49363 : CK 654 CBC: WBC 9.3, RBC 3.01, HGB 9.4, HCT 28.5, PLT 3434 BMP: SOD 137, K 4.6, CL 98, CO2 26, GL 107, BUN 20, CR 0.54 Lipid: TR 150, TC 112, LDL 48, HDL FACTOR Xa HEPARIN : 0.67002/02/2018: TC 141, LDL 64, TR 285, HDL 30002/02/2018: SOD 141, K 4.1, CL 105, CO2 29, GL 99, BUN 18, CR 0.60,calcium 8.603: WBC 13, HGB 10.2, HCT 31.5, PLT 50672/: PT 12, INR 1.0, PTT 29 US, [...] Artifact noted. Average exercise tolerance. Ayaan Wiggins [place], [place] - [facility] 12/14/2022 13:47:34 OBGyn Episode No OBEpisode recorded.
--- OUTSIDE RECORDS SUMMARY | 2025-04-16 01:16 | XMS_ITS | Encounter Summary ---
Author Organization [facility] Address 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
--- OUTSIDE RECORDS SUMMARY | 2025-04-16 01:16 | XMS_ITS | Encounter Summary ---
Author Organization [employer] [facility] Address 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 Gender Identity Not on file Sexual Orientation [...] HEMATOLOGY ORDERABLES Final Result Performing Organization Address [facility] de Phone [...] ORDERABLES Final Resul t Performing Organization Address [facility] de Phone Number INTERFACE SYSTEM Refer to clinic/hospital department * BONE MARROW COLLECTION (06/09/2005 2:21 PM CDT) BONE MARROW See Pathology Report INTERFACE SYSTEM 06/09/2005 2:21 PM CDT us Wallace Anthony MD PATHOLOGY/CYTOLOGY ORDERABLE S Final Result Performing Organization Address [facility] Phone Number INTERFACE SYSTEM Refer to clinic/hospital department * TSH REFLEXIVE (06/09/2005 1:23 PM CDT) TSH 0.85 0.27 - 4.20 uU/mL INTERFACE SYSTEM 06/09/2005 1:23 PM CDT us Wallace Anthony MD CHEMISTRY ORDERABLES Final R esult Performing Organization Address [facility] Phone Number INTERFACE [...] HEMATOLOGY ORDERABLES Final Result Performing Organization Address [facility] Phone Number INTERFACE [...] HEMATOLOGY ORDERABLES Final Result Performing Organization Address [facility] Phone Number INTERFACE SYSTEM Refer to clinic/hospital department * URIC ACID (06/09/2005 1:23 PM CDT) URIC ACID 2.9 2.3 - 6.6 mg/dL INTERFACE SYSTEM 06/09/2005 1:23 PM CDT Wallace Anthony MD CHEMISTRY ORDERABLES Final R esult Performing Organization Address [facility] Phone Number INTERFACE SYSTEM Refer to clinic/hospital department * (ABNORMAL) LACTATE DEHYDROGENASE (06/09/2005 1:23 PM CDT) LD (LACTATE DEHYDROGENASE) 219(H) 135 - 214 U/L INTERFACE SYSTEM 06/09/2005 1:23 PM CDT us Wallace Anthony MD CHEMISTRY ORDERABLES Final R esult Performing Organization Address [facility] de Phone [...] INTERFACE SYSTEM Comment: Lab test performed by: [email or web address] [address] MARQUISE LAWSON MD 06/09/2005 1:23 PM CDT us Wallace Anthony MD CHEMISTRY ORDERABLES Final R esult Performing Organization Address City/[facility] Co de Phone Number INTERFACE SYSTEM Refer to clinic/hospital department documented in this encounter Visit Diagnoses Diagnosis Other malignant lymphomas, unspecified site, extranodal and solid organ sites- Primary documented in this encounter Care Teams Wood Patternmaker Relationship Specialty [place] [address] [place] [address] PCP - General 07/14/04 documented as of this encounter
--- OUTSIDE RECORDS SUMMARY | 2025-04-16 01:17 | XMS_ITS | Encounter Summary ---
Author Organization [facility] Address [address] [place] [address] Care Team Providers Care Plating Department Helper Name Role Phone Liberty Hernandez MD Primary Care Provider [phone] Encounter Details Date Type Department Care Team (Latest Contact Info) Description 12/28/2004 Outpatient Historical [facility] ANIKA Meyer, Donell Roche MD NO ADDRESS ON FILE ENLARGEMENT LYMPH NODES (Primary Dx) Social History Tobacco Use Types Packs/Day Years Used Date Smoking Tobacco: Never Assessed Comments Unknown Sex and Gender Information Value Date Recorded Sex Assigned at Not on file 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 Gender Identity Not on file Sexual Orientation Not on file documented as of this encounter Plan of Treatment Not on file documented as of this encounter Procedures Procedure Name Priority Date/Time Associated Diagnosis Comments TULAREMIA ANTIBODY Routine 12/28/2004 4: 17 PM RADIOTELEGRAPHIST CMV IGM Routine 12/28/2004 4:17 PM RADIOTELEGRAPHIST CMV IGG Routine 12/28/2004 4:17 PM RADIOTELEGRAPHIST CORTISOL LEVEL Routine 12/28/2004 4:17 PM RADIOTELEGRAPHIST documented in this encounter Results * CORTISOL LEVEL (12/28/2004 4:17 PM RADIOTELEGRAPHIST) CORTISOL LEVEL 3.1 ug/dL INTER FACE SYSTEM Comment: Cortisol Reference Range: 7 - 10 AM: 6.2 - 19.4 ug/dL 4 - 8 PM: 2.3 - 12.3 ug/dL 12/28/2004 4:17 PM RADIOTELEGRAPHIST Donell Meyer MD CHEMISTRY ORDERABLES Final Result Performing Organization Address [facility] de Phone Number INTERFACE SYSTEM Refer to clinic/hospital department * TULAREMIA ANTIBODY (12/28/2004 4:17 PM RADIOTELEGRAPHIST) FRANCISELLA AB <20 INTER FACE SYSTEM Comment: Reference Range: <20 NEGATIVE A single titer of greater than 80 or a four-fold rise in titer is considered significant. Cross-reactions may occur between Francisella and Brucella antigens and antisera. Parallel testing is recommended for positive agglutinations. Lab test performed by: [facility] [address] [place] [address] Pj BUTLER MD 12/28/2004 4:17 PM RADIOTELEGRAPHIST Donell Meyer MD CHEMISTRY ORDERABLES Final Result Performing Organization Address [facility] Phone Number INTERFACE SYSTEM Refer to clinic/hospital department * CMV IGM (12/28/2004 4:17 PM RADIOTELEGRAPHIST) CMV IGM 0.24 EIA Value INTERFACE SYSTEM [...] OR MORE WEEKS. Lab test performed by: [facility] [address] [facility] [place] [address] MARQUISE LAWSON MD 12/28/2004 4:17 PM RADIOTELEGRAPHIST Donell Meyer MD CHEMISTRY ORDERABLES Final Result Performing Organization Address [facility]/State/ZIP Co de Phone Number INTERFACE SYSTEM Refer to clinic/hospital department * (ABNORMAL) CMV IGG (12/28/2004 4:17 PM RADIOTELEGRAPHIST) CMV IGG >5.00(H) EIA Value INTERFACE SYSTEM [...] CLINICALLY USEFUL INFORMATION. Lab test performed by: [facility] [address] MARQUISE LAWSON MD 12/28/2004 4:17 PM RADIOTELEGRAPHIST Donell Meyer MD CHEMISTRY ORDERABLES Final Result INTERFACE SYSTEM Refer to clinic/hospital department documented in this encounter Visit Diagnoses Diagnosis Enlargement of lymph nodes- Primary documented in this encounter Care Teams Plating Department Helper Relationship Specialty [place] [address] [place] [address] PCP - General 07/14/04 documented as of this encounter
--- OUTSIDE RECORDS SUMMARY | 2025-04-16 01:17 | XMS_ITS | Encounter Summary ---
Author Organization [employer] Address [address] [place] [address] Care Team Providers Care Hospital Nursing Assistant Name Role Phone Liberty Hernandez MD Primary Care Provider [phone] Encounter Details Date Type Department Care Team (Late st Contact Info) Description 05/04/2005 Outpatient Historical [facility] Support [facility] ([facility]) [address] 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
--- OUTSIDE RECORDS SUMMARY | 2025-04-16 01:17 | XMS_ITS | Encounter Summary ---
Author Organization [employer] [facility] Address 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 de Phone Number INTERFACE SYSTEM [...] [facility] Intranet at: [email or web address] Select: Lab Policies and Procedures Select: Reference Ranges - GFR 04/18/2007 9:30 AM CDT us Wallace Anthony MD CHEMISTRY ORDERABLES Edited INTERFACE SYSTEM Refer to clinic/hospital department documented in this encounter Visit Diagnoses Diagnosis Other malignant lymphomas, unspecified site, extranodal and solid organ sites- Primary documented in this encounter Care Teams Rehabilitation Liaison Relationship Specialty [place] [address] [place] [address] PCP - General 07/14/04 documented as of this encounter
--- OUTSIDE RECORDS SUMMARY | 2025-04-16 01:17 | XMS_ITS | Encounter Summary ---
Author Organization [facility] Address 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 Gender Identity Not on file Sexual [...] CDT) SODIUM 140 135 - 145 mmol/L [facility] ALT 19 0 - 31 U/L [facility] ALKALINE PHOSPHATASE 70 35 - 104 U/L [facility] BILIRUBIN TOTAL 0.3 0.2 - 1.0 mg/dL [facility] CO2 25 22 - 30 mmol/L [facility] TOTAL PROTEIN 7.3 6.3 - 8.6 g/dL [facility] POTASSIUM 3.5 3.5 - 4.9 mmol/L [facility] GLUCOSE 105(H) 65 - 99 mg/dL [facility] AST 28 12 - 32 U/L [facility] BUN 17 6 - 20 mg/dL [facility] CALCIUM 9.5 8.6 - 10.2 mg/dL [facility] CHLORIDE 103 96 - 108 mmol/L [facility] ALBUMIN 4.7 3.4 - 4.8 g/dL [facility] CREATININE 0.66 0.51 - 0.95 mg/dL [facility] GFR, >60 >=60 mL/min/1. 7 sq meter [facility] GFR >60 >=60 mL/min/1. 7 sq meter [facility] Comment: Modification of Diet in Renal Disease (MDRD) study formula. Estimated GFR rate interpretative information for both Americans and non- Americans is available on the [facility] Intranet at: [email or web address] Select: Lab Policies and Procedures Select: Reference Ranges - GFR Blood specimen (specimen) 08/13/2008 1:13 PM CDT 08/13/2008 1:13 PM CDT us Wallace Anthony MD CHEMISTRY ORDERABLES Edited INTERFACE SYSTEM Refer to clinic/hospital department [facility] CLIA# [id number] [address] [place] [address] * (ABNORMAL) CBC WITH DIFFERENTIAL (08/13/2008 1:13 PM CDT) RBC 4.21 3.90 - 4.90 M/uL [facility] MCHC 35.7(H) 31.5 - 35.5 % [facility] MCV 89.1 82.0 - 99.0 fL [facility] PLATELETS 309 140 - 350 K/uL [facility] HEMOGLOBIN 13.4 11.8 - 14.8 g/dL [facility] RDW 12.3 11.5 - 14.5 % [facility] WBC 8.1 4.0 - 9.8 K/uL [facility] MCH 31.8 27.2 - 32.6 pg [facility] MPV 8.9(L) 9.3 - 12.4 fL [facility] HEMATOCRIT 37.5 35.5 - 44.0 % [facility] RDW-STDEV 39.9 37.1 - 48.7 fL [facility] EOSINOPHILS 1 0 - 7 % [facility] EOSINOPHIL ABSOLUTE 0.10 0.00 - 0.70 K/uL [facility] LYMPHOCYTES 32 16 - 45 % [facility] LYMPHOCYTE ABSOLUTE 2.59 0.70 - 4.50 K/uL [facility] BASOPHILS 0 0 - 2 % [facility] BASOPHILS ABSOLUTE 0.03 0.00 - 0.20 K/uL [facility] MONOCYTES 12 3 - 13 % [facility] MONOCYTE ABSOLUTE 0.99 0.10 - 1.30 K/uL [facility] NEUTROPHILS 54 45 - 70 % [facility] NEUTROPHIL ABSOLUTE 4.34 1.90 - 7.00 K/uL [facility] Blood specimen (specimen) 08/13/2008 1:13 PM CDT 08/13/2008 1:13 PM CDT us Wallace Anthony MD HEMATOLOGY ORDERABLES Edited INTERFACE SYSTEM Refer to clinic/hospital department [facility] CLIA# [id number] [address] [place] [address] documented in this encounter Visit Diagnoses Diagnosis 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
--- OUTSIDE RECORDS SUMMARY | 2025-04-16 01:17 | XMS_ITS | Encounter Summary ---
Author Organization [facility] Address [address] [place] [address] Care Team Providers Care Supervising Bailiff Name Role Phone Liberty Hernandez MD Primary Care Provider Encounter Details Date Type Department Care Team (Latest Contact Info) Description 12/11/2004 Outpatient Historical HIS [facility] ANIKA Meyer, Donell Roche MD NO ADDRESS ON FILE ENLARGEMENT LYMPH NODES (Primary Dx) Social History Tobacco Use Types Packs/Day Years Used Date Smoking Tobacco: Never Assessed Comments Unknown Sex and Gender Information Value Date Recorded Sex Assigned at Not on file Legal Sex Female 5:10 AM SEED CLEANER OPERATOR Gender Identity Not on file Sexual Orientation Not on file documented as of this encounter Plan of Treatment Not on file documented as of this encounter Procedures Procedure Name Priority Date/Time Associated Diagnosis Comments AMELIA PANEL Routine 12/11/2004 11:57 AM SEED CLEANER OPERATOR HEPATITIS B SURFACE ANTIGEN Routine 12/11/2004 11:57 AM SEED CLEANER OPERATOR BARTONELLA AB IGG/IGM W REFLEX TITER Routine 12/11/2004 11:57 AM SEED CLEANER OPERATOR RPR Routine 12/11/2004 11:57 AM SEED CLEANER OPERATOR RHEUMATOID FACTOR Routine 12/11/2004 11: 57 AM SEED CLEANER OPERATOR COMPLEMENT C3 Routine 12/11/2004 11:57 AM SEED CLEANER OPERATOR COMPLEMENT C4 Routine 12/11/2004 11:57 AM SEED CLEANER OPERATOR TSH Routine 12/11/2004 11:57 AM SEED CLEANER OPERATOR LACTATE DEHYDROGENASE Routine 12/11/2004 11:57 AM SEED CLEANER OPERATOR documented in this encounter Results * TSH (12/11/2004 11:57 AM SEED CLEANER OPERATOR) TSH 0.89 0.27 - 4.20 uU/mL INTERFACE SYSTEM 12/11/2004 11:5 7 AM SEED CLEANER OPERATOR Donell Meyer MD CHEMISTRY ORDERABLES Final Result Performing Organization Address [facility] Phone Number INTERFACE SYSTEM Refer to clinic/hospital department * LACTATE DEHYDROGENASE (12/11/2004 11:57 AM SEED CLEANER OPERATOR) LD (LACTATE DEHYDROGENASE) 189 135 - 214 U/L INTERFACE SYSTEM 12/11/2004 11:5 7 AM SEED CLEANER OPERATOR Donell Meyer MD CHEMISTRY ORDERABLES Final Result Performing Organization Address [facility] Phone Number INTERFACE SYSTEM Refer to clinic/hospital department * COMPLEMENT C4 (12/11/2004 11:57 AM SEED CLEANER OPERATOR) COMPLEMENT C4 23 16 - 47 mg/dL INTERFACE SYSTEM Comment: Lab test performed by: [facility] [id number] [place] [address] MARQUISE LAWSON MD 12/11/2004 11:5 7 AM SEED CLEANER OPERATOR Donell Meyer MD CHEMISTRY ORDERABLES Final Result Performing Organization Address [facility] Phone Number INTERFACE SYSTEM Refer to clinic/hospital department * COMPLEMENT C3 (12/11/2004 11:57 AM SEED CLEANER OPERATOR) Pathologist [facility] COMPLEMENT C3 118 90 - 180 mg/dL INTERFACE SYSTEM Comment: Lab test performed by: [facility] [id number] [place] [address] MARQUISE LAWSON MD 12/11/2004 11:5 7 AM SEED CLEANER OPERATOR Donell Meyer MD CHEMISTRY ORDERABLES Final Result INTERFACE SYSTEM Refer to clinic/hospital department * AMELIA PANEL (12/11/2004 11:57 AM SEED CLEANER OPERATOR) DNA AUTOABS DOUBLE STRANDED <30 IU/mL INTERFACE SYSTEM Comment: IU/ML INTERPRETATION < 30 NEGATIVE 30-60 LOW POSITIVE 61-200 POSITIVE > 200 STRONG POSITIVE Lab test performed by: [place] [address] MARQUISE LAWSON MD SCLERODERMA AB SCL 70 <1.00 Index INTERFACE SYSTEM Comment: REFERENCE RANGE INDEX VALUES < OR = 1.00 = NEGATIVE INDEX VALUES > 1.00 = POSITIVE Lab test performed by: [place] [address] MARQUISE LAWSON MD NILES ABS, SM AB <1.00 Index INTER FACE SYSTEM Comment: REFERENCE RANGE INDEX VALUES < OR = 1.00 = NEGATIVE INDEX VALUES > 1.00 = POSITIVE THE PRESENCE OF SM ANTIBODIES IS HIGHLY SPECIFIC FOR SLE. SM ANTIBODIES ARE PRESENT IN 30% OF SLE PATIENTS. NILES ABS, SM/CORE STRIPPER AB <1.00 Index I NTERFACE SYSTEM Comment: REFERENCE RANGE INDEX VALUES < OR = 1.00 = NEGATIVE INDEX VALUES > 1.00 = POSITIVE CORE STRIPPER ANTIBODIES ARE FOUND IN MIXED CONNECTIVE TISSUE DISEASE (MCTD), SLE, RA, SJOGREN'S SYNDROME, PROGRESSIVE SYSTEMIC SCLEROSIS, AND DRUG INDUCED LE. THE PRESENCE OF CORE STRIPPER ANTIBODIES AND THE ABSENCE OF SM AND DS DNA ANTIBODIES STRONGLY SUGGESTS MCTD, WHILE THE ABSENCE OF CORE STRIPPER USUALLY RULES OUT MCTD. Lab test performed by: [facility] [address] MARQUISE LAWSON MD SJOGRENS ABS (SSA) <1.00 [...] PATIENTS WITH SLE. Lab test performed by: [facility] [address] MARQUISE LAWSON MD AMELIA SCREEN NEGATIVE NEGATIVE INTERFACE SYSTEM Comment: Lab test performed by: [facility] [address] [place] [address] MARQUISE LAWSON MD 12/11/2004 11:5 7 AM SEED CLEANER OPERATOR Donell Meyer MD CHEMISTRY ORDERABLES Final Result INTERFACE SYSTEM Refer to clinic/hospital department * BARTONELLA AB IGG/IGM W REFLEX TITER (12/11/2004 11:57 AM SEED CLEANER OPERATOR) [facility] B. HENSELAE IGG SCREEN NEGATIVE INTERFACE SYSTEM Comment: Reference Range: NEGATIVE Lab test performed by: [facility] [place] [place] [address] Pj BUTLER MD BARTONELLA HENSELAE IGG TITER Not Performed Titer INTERFACE SYSTEM Comment: Reference Range: <1:64 TNP-Screening test negative. Titer not performed. Lab test performed by: [facility] [place] [address]Salome BUTLER MD B. LEUNG IGG SCREEN NEGATIVE INTERFACE SYSTEM Comment: Reference Range: NEGATIVE Lab test performed by: [facility] [place] [address] Pj BUTLER MD BARTONELLA LEUNG IGG TITER Not Performed Titer INTERFACE SYSTEM Comment: Reference Range: <1:64 TNP-Screening test negative. Titer not performed. Reference Range: <1:64 TNP-Screening test negative. Titer not performed. Lab test performed by: [facility] [place] [place] [address]Salome BUTLER MD B. HENSELAE IGM SCREEN NEGATIVE INTERFACE SYSTEM Comment: Reference Range: NEGATIVE Lab test performed by: [facility], [place] [address]Salome BUTLER MD BARTONELLA HENSELAE IGM TITER Not Performed Titer INTERFACE SYSTEM Comment: Reference Range: <1:64 TNP-Screening test negative. Titer not performed. Reference Range: <1:64 TNP-Screening test negative. Titer not performed. Reference Range: <1:16 TNP-Screening test negative. Titer not performed. Lab test performed by: [facility] [address] [place] [address] Pj BUTLER MD B. LEUNG IGM SCREEN NEGATIVE INTERFACE SYSTEM Comment: Reference Range: NEGATIVE Lab test performed by: [facility] [address] [place] [address] Pj BUTLER MD BARTONELLA LEUNG IGM TITER [...] developed and its performance characteristics determined by [facility]. It has not been cleared or approved by the U.S. Food and Drug Administration. The FDA has determined that such clearance or approval is not necessary. Performance characteristics refer to the analytical performance of the test. Lab test performed by: [facility] [address] [place] [address] Pj BUTLER MD 12/11/2004 11:5 7 AM SEED CLEANER OPERATOR Donell Meyer MD CHEMISTRY ORDERABLES Final Result Performing Organization Address [facility] de Phone Number INTERFACE SYSTEM Refer to clinic/hospital department * RPR (12/11/2004 11:57 AM SEED CLEANER OPERATOR) RPR NON-REACT SHONDA NON-REACT SHONDA INTERFACE SYSTEM Comment: Lab test performed by: [facility] [address]Audrey LAWSON MD 12/11/2004 11:5 7 AM SEED CLEANER OPERATOR Donell Meyer MD CHEMISTRY ORDERABLES Final Result Performing Organization Address [facility] Phone Number INTERFACE SYSTEM Refer to clinic/hospital department * RHEUMATOID FACTOR (12/11/2004 11:57 AM SEED CLEANER OPERATOR) RHEUMATOID FACTOR 6 <14 IU/mL IN TERFACE SYSTEM Comment: Lab test performed by: [facility] [address]Audrey LAWSON MD 12/11/2004 11:5 7 AM SEED CLEANER OPERATOR Donell Meyer MD CHEMISTRY ORDERABLES Final Result Performing Organization Address [facility] Phone Number INTERFACE SYSTEM Refer to clinic/hospital department * HEPATITIS B SURFACE ANTIGEN (12/11/2004 11:57 AM SEED CLEANER OPERATOR) HEPATITIS B SURFACE AG NON-REACT SHONDA NON-REACT SHONDA INTERFACE SYSTEM Comment: Lab test performed by: [facility] Bridgett LAWSON MD 12/11/2004 11:5 7 AM SEED CLEANER OPERATOR Donell Meyer MD CHEMISTRY ORDERABLES Final Result Performing Organization Address [facility] de Phone Number INTERFACE SYSTEM Refer to clinic/hospital department documented in this encounter Visit Diagnoses Diagnosis Enlargement of lymph nodes- Primary documented in this encounter Care Teams Supervising Bailiff Relationship Specialty [place] [address] [place] [address] PCP - General 07/14/04 documented as of this encounter
--- OUTSIDE RECORDS SUMMARY | 2025-04-16 01:17 | XMS_ITS | Encounter Summary ---
Author Organization [facility] Address [address] [place] [address] Care Team Providers Care Senior Maintenance Mechanic Name Role Phone Liberty Hernandez MD Primary Care Provider [phone] Encounter Details Date Type Department Care Team (Late st Contact Info) Description 12/06/2004 Outpatient Historical HIS [facility] Ant Huang MD [address] [phone] ENLARGEMENT LYMPH NODES (Primary Dx) Social History Tobacco Use Types Packs/Day Years Used Date Smoking Tobacco: Never Assessed Comments Unknown Sex and Gender Information Value Date Recorded Sex Assigned at Not on file Legal Sex Female 5:10 AM SENIOR CORPORATE ACCOUNTANT Gender Identity Not on file Sexual Orientation Not on file documented as of this encounter Plan of Treatment Not on file documented as of this encounter Procedures Procedure Name Priority Date/Time Associated Diagnosis Comments TOXOPLASMOSIS IGM Routine 12/06/2004 2:5 2 PM SENIOR CORPORATE ACCOUNTANT PARVOVIRUS B19 AB IGG/IGM Routine 12/06/2004 2:52 PM SENIOR CORPORATE ACCOUNTANT EBV IGM, VCA Routine 12/06/2004 2:52 PM SENIOR CORPORATE ACCOUNTANT EBV IGG, VCA Routine 12/06/2004 2:52 PM SENIOR CORPORATE ACCOUNTANT CBC WITH DIFFERENTIAL Routine 12/06/2004 2:52 PM SENIOR CORPORATE ACCOUNTANT CBC WITH DIFFERENTIAL Routine 12/06/2004 2:52 PM SENIOR CORPORATE ACCOUNTANT CMV IGG Routine 12/06/2004 2:52 PM SENIOR CORPORATE ACCOUNTANT AMELIA SCREEN W/REFLEX Routine 12/06/2004 2 :52 PM SENIOR CORPORATE ACCOUNTANT documented in this encounter Results * (ABNORMAL) CBC WITH DIFFERENTIAL (12/06/2004 2:52 PM SENIOR CORPORATE ACCOUNTANT) NEUTROPHILS 59 45 - 70 % INTERFAC [...] 0.20 K/uL INTERFACE SYSTEM 12/06/2004 2:52 PM SENIOR CORPORATE ACCOUNTANT us Ant Bowling MD HEMATOLOGY ORDERABLES Final Re sult INTERFACE SYSTEM Refer to clinic/hospital department * (ABNORMAL) CBC WITH DIFFERENTIAL (12/06/2004 2:52 PM SENIOR CORPORATE ACCOUNTANT) Pathologist [facility] WBC 6.0 4.0 - 9.8 K/uL INTERFACE [...] 12.4 fL INTERFACE SYSTEM 12/06/2004 2:52 PM SENIOR CORPORATE ACCOUNTANT Ant Bowling MD HEMATOLOGY ORDERABLES Final Re sult Performing Organization Address [facility] Co de Phone Number INTERFACE SYSTEM Refer to clinic/hospital department * (ABNORMAL) PARVOVIRUS B19 AB IGG/IGM (12/06/2004 2:52 PM SENIOR CORPORATE ACCOUNTANT) PARVOVIRUS B19 IGG ABS 4.2(H) <0.9 Index [...] in these patients. Lab test performed by: [employer] [facility] [address] [place], [place] MISSY VALLADARES MD 12/06/2004 2:52 PM SENIOR CORPORATE ACCOUNTANT Ant Bowling MD CHEMISTRY ORDERABLES Final Res ult Performing Organization Address [facility] de Phone Number INTERFACE SYSTEM Refer to clinic/hospital department * TOXOPLASMOSIS IGM (12/06/2004 2:52 PM SENIOR CORPORATE ACCOUNTANT) Pathologist [facility] TOXOPLASMOSIS IGG 0.20 EIA Value IN FINDING ROVER SYSTEM Comment: EIA VALUE EXPLANATION OF TEST [...] FOR TOXOPLASMA IGM. Lab test performed by: [employer] a division of [employer] [address] MARQUISE LAWSON MD TOXOPLASMOSIS IGM IN TERFACE SYSTEM Comment:NEGATIVE: NO IGM ANT IBODY TOXOPLASMOSIS IGM INTERP INTERFACE SYSTEM Comment: NO SEROLOGIC EVIDENCE OF INFECTION WITH TOXOPLASMA GONDII. CONSIDER RETESTING IN 3 WEEKS IF ACUTE INFECTION IS SUSPECTED.See Result Comment TOXOPLASMOSIS IGM COMMENT INTERFACE SYSTEM Comment: THIS INTERPRETATION CANNOT BE APPLIED TO INFANTS 15 MONTHS OF AGE OR LESS. Lab test performed by: [employer] a division of [employer] [address] MARQUISE LAWSON MD See Result Comment 12/06/2004 2:52 PM SENIOR CORPORATE ACCOUNTANT us Ant Bowling MD CHEMISTRY ORDERABLES Final Res ult Performing Organization Address [facility] Co de Phone Number INTERFACE SYSTEM Refer to clinic/hospital department * EBV IGM, VCA (12/06/2004 2:52 PM SENIOR CORPORATE ACCOUNTANT) EBV IGM, VCA 0.00 EIA Value INTERFA CE SYSTEM EBV REFERENCE RANGE INTERFACE SYSTEM Comment: EIA VALUE INTERPRETATION < OR = 0.90 NEGATIVE - NO ANTIBODY DETECTED 0.91 - 1.09 EQUIVOCAL > OR = 1.10 POSITIVE - ANTIBODY DETECTED Lab test performed by: [employer] division of [employer] [address] MARQUISE LAWSON MD See Result Comment 12/06/2004 2:52 PM SENIOR CORPORATE ACCOUNTANT us Ant Bowling MD CHEMISTRY ORDERABLES COM Final Result Performing Organization Address [facility] Co de Phone Number INTERFACE SYSTEM Refer to clinic/hospital department * (ABNORMAL) EBV IGG, VCA (12/06/2004 2:52 PM SENIOR CORPORATE ACCOUNTANT) EBV IGG, VCA 3.76(H) EIA Value INTERFA CE SYSTEM EBV REFERENCE RANGE INTERFACE SYSTEM Comment: EIA VALUE INTERPRETATION < OR = 0.90 NEGATIVE - NO ANTIBODY DETECTED 0.91 - 1.09 EQUIVOCAL > OR = 1.10 POSITIVE - ANTIBODY DETECTED Lab test performed by: [facility] [id number] [place] [address] MARQUISE LAWSON MD See Result Comment 12/06/2004 2:52 PM SENIOR CORPORATE ACCOUNTANT Ant Bowling MD CHEMISTRY ORDERABLES Final Res ult Performing Organization Address [facility] Phone Number INTERFACE SYSTEM Refer to clinic/hospital department * (ABNORMAL) CMV IGG (12/06/2004 2:52 PM SENIOR CORPORATE ACCOUNTANT) CMV IGG >5.00(H) EIA Value INTERFACE SYSTEM [...] CLINICALLY USEFUL INFORMATION. Lab test performed by: [facility] of [facility] [id number] [place] [address] MARQUISE LAWSON MD 12/06/2004 2:52 PM SENIOR CORPORATE ACCOUNTANT Ant Bowling MD CHEMISTRY ORDERABLES Final Res ult Performing Organization Address [facility] Phone Number INTERFACE SYSTEM Refer to clinic/hospital department * (ABNORMAL) AMELIA (12/06/2004 2:52 PM SENIOR CORPORATE ACCOUNTANT) AMELIA SCREEN POSITIVE( A) NEGATIVE INTERFACE SYSTEM [...] ELEVATED ANTIBODY LEVEL Lab test performed by: [facility] [address] [place] [address] MARQUISE LAWSON MD 12/06/2004 2:52 PM SENIOR CORPORATE ACCOUNTANT us Ant Bowling MD CHEMISTRY ORDERABLES Final Res ult INTERFACE SYSTEM Refer to clinic/hospital department documented in this encounter Visit Diagnoses Diagnosis Enlargement of lymph nodes- Primary documented in this encounter Care Teams Senior Maintenance Mechanic Relationship Specialty [place] [address] [place] [address] PCP - General 07/14/04 documented as of this encounter
--- OUTSIDE RECORDS SUMMARY | 2025-04-16 01:17 | XMS_ITS | Encounter Summary ---
Author Organization [employer] [facility] Address [address] [place] [address] Care Team Providers Care Legal Writing Professor Name Role Phone Liberty Hernandez MD Primary Care Provider [phone] Encounter Details Date Type Department Care Team (Latest Contact Info) Description 08/15/2007 Outpatient Historical [facility] Wallace Anthony MD NO ADDRESS ON FILE Lymphomas NEC Extranodal/NOS (CMS/HCC) (Primary Dx) Social History Tobacco Use Types Packs/Day Years Used Date Smoking Tobacco: Never Assessed Comments Unknown Sex and Gender Information Value Date Recorded Sex Assigned at Not on file Legal Sex Female 5:10 AM BRAKES INSPECTOR Gender Identity Not on file Sexual Orientation [...] MD HEMATOLOGY ORDERABLES Edited Performing Organization Address [facility] Phone Number INTERFACE SYSTEM [...] MD HEMATOLOGY ORDERABLES Edited Performing Organization Address [facility] Phone Number INTERFACE SYSTEM [...] [facility] [place] [facility] at: [email or web address] Select: Lab Policies and Procedures Select: Reference Ranges - GFR 08/15/2007 9:42 AM CDT us Wallace Anthony MD CHEMISTRY ORDERABLES Edited INTERFACE SYSTEM Refer to clinic/hospital department documented in this encounter Visit Diagnoses Diagnosis Other malignant lymphomas, unspecified site, extranodal and solid organ sites- Primary documented in this encounter Care Teams Legal Writing Professor Relationship Specialty [place] [address] [place] [address] PCP - General 07/14/04 documented as of this encounter
--- OUTSIDE RECORDS SUMMARY | 2025-04-16 01:17 | XMS_ITS | Encounter Summary ---
Author Organization [facility] Address [address] [place] [address] Care Team Providers Care Compliance Coordinator Name Role Phone Liberty Hernandez MD Primary Care Provider [phone] Encounter Details Date Type Department Care Team (Latest Contact Info) Description 12/19/2007 Outpatient Historical [facility] Wallace Anthony MD NO ADDRESS ON FILE Lymphomas NEC Extranodal/NOS (CMS/HCC) Social History Tobacco Use Types Packs/Day Years Used Date Smoking Tobacco: Never Assessed Comments Unknown Sex and Gender Information Value Date Recorded Sex Assigned at Not on file Legal Sex Female 5:10 AM CARDIAC/VASCULAR SONOGRAPHER Gender Identity Not on file Sexual Orientation Not on file documented as of this encounter Plan of Treatment Not on file documented as of this encounter Procedures Procedure Name Priority Date/Time Associated Diagnosis Comments CBC WITH DIFFERENTIAL Stat 12/19/2007 2:09 PM CARDIAC/VASCULAR SONOGRAPHER COMPREHENSIVE METABOLIC PANEL Stat 12/19/2007 2:09 PM CARDIAC/VASCULAR SONOGRAPHER documented in this encounter Results * COMPREHENSIVE METABOLIC PANEL (12/19/2007 2:09 PM CARDIAC/VASCULAR SONOGRAPHER) BUN 14 6 - 20 mg/dL [facility] CALCIUM 8.8 8.4 - 10.2 mg/dL [facility] CHLORIDE 104 96 - 108 mmol/L [facility] ALBUMIN 4.4 3.4 - 4.8 g/dL [facility] CREATININE 0.66 0.51 - 0.95 mg/dL [facility] SODIUM 140 135 - 145 mmol/L [facility] ALT 22 0 - 31 U/L [facility] ALKALINE PHOSPHATASE 65 35 - 104 U/L [facility] BILIRUBIN TOTAL 0.3 0.2 - 1.0 mg/dL [facility] CO2 27 22 - 30 mmol/L [facility] TOTAL PROTEIN 6.7 6.3 - 8.6 g/dL [facility] POTASSIUM 3.6 3.5 - 4.9 mmol/L [facility] GLUCOSE 93 65 - 99 mg/dL [facility] AST 26 12 - 32 U/L [facility] GFR, >60 >=60 mL/min/1.7 sq meter [facility] GFR >60 >=60 mL/min/1.7 sq meter [facility] Comment: Estimated GFR rate interpretative information for both Americans and non- Americans is available on the [facility] Intranet at: [email or web address] Select: Lab Policies and Procedures Select: Reference Ranges - GFR Blood specimen (specimen) 12/19/2007 2:09 PM CARDIAC/VASCULAR SONOGRAPHER 12/19/2007 2:11 PM CARDIAC/VASCULAR SONOGRAPHER us Wallace Anthony MD CHEMISTRY ORDERABLES Edited [facility] [address] [place] [address] * (ABNORMAL) CBC WITH DIFFERENTIAL (12/19/2007 2:09 PM CARDIAC/VASCULAR SONOGRAPHER) [facility] 34.9 31.5 - 35.5 % [facility] MCV 93.2 82.0 - 99.0 fL [facility] PLATELETS 286 140 - 350 K/uL [facility] HEMOGLOBIN 12.5 11.8 - 14.8 g/dL [facility] RDW 12.4 11.5 - 14.5 % [facility] WBC 5.6 4.0 - 9.8 K/uL [facility] MCH 32.6 27.2 - 32.6 pg [facility] MPV 8.8(L) 9.3 - 12.4 fL [facility] HEMATOCRIT 35.8 35.5 - 44.0 % [facility] RDW-STDEV 40.9 37.1 - 48.7 fL [facility] RBC 3.84(L) 3.90 - 4.90 M/uL [facility] NEUTROPHILS 47 45 - 70 % [facility] NEUTROPHIL ABSOLUTE 2.61 1.90 - 7.00 K/uL [facility] EOSINOPHILS 1 0 - 7 % [facility] EOSINOPHIL ABSOLUTE 0.08 0.00 - 0.70 K/uL [facility] LYMPHOCYTES 39 16 - 45 % [facility] LYMPHOCYTE ABSOLUTE 2.14 0.70 - 4.50 K/uL [facility] BASOPHILS 1 0 - 2 % [facility] BASOPHILS ABSOLUTE 0.03 0.00 - 0.20 K/uL [facility] MONOCYTES 13 3 - 13 % [facility] MONOCYTE ABSOLUTE 0.70 0.10 - 1.30 K/uL [facility] Blood specimen (specimen) 12/19/2007 2:09 PM CARDIAC/VASCULAR SONOGRAPHER 12/19/2007 2:11 PM CARDIAC/VASCULAR SONOGRAPHER us Wallace Anthony MD HEMATOLOGY ORDERABLES Edited INTERFACE SYSTEM Refer to clinic/hospital department [facility] [address] [place], [place] [address] documented in this encounter Visit Diagnoses Diagnosis Other malignant lymphomas, unspecified site, extranodal and solid organ sites documented in this encounter Care Teams Compliance Coordinator Relationship Specialty [place] [address] [place] [address] PCP - General 07/14/04 documented as of this encounter
--- OUTSIDE RECORDS SUMMARY | 2025-04-16 01:17 | XMS_ITS | Encounter Summary ---
Author Organization [facility] Address [address] [place] [address] Care Team Providers Care Religious Activities Director Name Role Phone Liberty Hernandze MD Primary Care Provider [phone] Encounter Details Date Type Department Care Team [...] on file Legal Sex Female 5:10 AM HARD TILE SETTER Gender Identity Not on file Sexual Orientation [...] CDT) GLUCOSE 95 65 - 99 mg/dL [facility] AST 26 12 - 32 U/L [facility] BUN 18 6 - 20 mg/dL [facility] CO2 26 22 - 30 mmol/L [facility] CALCIUM 9.0 8.4 - 10.2 mg/dL [facility] ALBUMIN 4.6 3.4 - 4.8 g/dL [facility] CHLORIDE 103 96 - 108 mmol/L [facility] CREATININE 0.75 0.51 - 0.95 mg/dL [facility] ALT 17 0 - 31 U/L [facility] SODIUM 139 135 - 145 mmol/L [facility] ALKALINE PHOSPHATASE 70 35 - 104 U/L [facility] BILIRUBIN TOTAL 0.2 0.2 - 1.0 mg/dL [facility] POTASSIUM 3.6 3.5 - 4.9 mmol/L [facility] Intranet at: [email or web address] Select: Lab Policies and Procedures Select: Reference Ranges - GFR Blood specimen (specimen) 04/16/2008 1:55 PM CDT 04/16/2008 2:11 PM CDT us Wallace Anthony MD CHEMISTRY ORDERABLES Edited [facility] CLIA# [id number] [address] [place] [id number] * (ABNORMAL) CBC WITH DIFFERENTIAL (04/16/2008 1:55 PM CDT) HEMOGLOBIN 12.9 11.8 - 14.8 g/dL [facility] RDW 12.2 11.5 - 14.5 % [facility] WBC 6.9 4.0 - 9.8 K/uL [facility] MCH 32.8(H) 27.2 - 32.6 pg [facility] MPV 9.2(L) 9.3 - 12.4 fL [facility] HEMATOCRIT 36.5 35.5 - 44.0 % [facility] RDW-STDEV 40.2 37.1 - 48.7 fL [facility] RBC 3.93 3.90 - 4.90 M/uL [facility] MCHC 35.3 31.5 - 35.5 % [facility] MCV 92.9 82.0 - 99.0 fL [facility] PLATELETS 326 140 - 350 K/uL [facility] BASOPHILS 0 0 - 2 % [facility] LYMPHOCYTES 27 16 - 45 % [facility] BASOPHILS ABSOLUTE 0.02 0.00 - 0.20 K/uL [facility] MONOCYTE ABSOLUTE 0.81 0.10 - 1.30 K/uL [facility] NEUTROPHIL ABSOLUTE 4.14 1.90 - 7.00 K/uL [facility] MONOCYTES 12 3 - 13 % [facility] EOSINOPHILS 1 0 - 7 % [facility] EOSINOPHIL ABSOLUTE 0.05 0.00 - 0.70 K/uL [facility] NEUTROPHILS 60 45 - 70 % 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
[2025-04-16 07:10] VITALS: BP 135/70; PULSE 63; RESP 16; TEMP 36.8; O2SAT 94; BMI 20.8
[2025-04-16] MEDS: LACTATED RINGERS 1,000 ML 150 ML IV CONT (07:31)
--- NOTE | 2025-04-16 08:11 | WPDANESEPPF ---
Anes - Initial Pre Proc Eval Procedure: Operation Date: 04/16/25 08:30 Proposed Procedures p Screening Colonoscopy - Shantanu Kuhn MD Date/Time: 04/16/25 08:11 Surgeon: Shantanu Kuhn MD Pre Op Diagnosis: Encounter for screening for malignant neoplasm of Patient Data Age: 64 Gender: F Height: 1.6 m Weight: 52.2 kg Allergies Allergy/AdvReac Type Severity Reaction Status Date / Time No Known Allergies Allergy Verified 04/16/25 07:17 Home Medications ?Medication ?Instructions ?Recorded ?Confirmed ?Type aspirin 81 mg tablet,delayed 81 mg PO DAILY 01/13/20 04/16/25 History release (Aspir-) evolocumab 140 mg/mL subcutaneous See Rx Instructions .Route .COMPLEX 01/13/20 04/07/25 History pen injector (Repatha SureClick) isosorbide mononitrate 30 mg 30 mg PO DAILY 01/13/20 04/16/25 History tablet,extended release 24 hr metoprolol succinate 50 mg 50 mg PO DAILY 01/13/20 04/16/25 History tablet,extended release 24 hr vitamin D3 94.38 mcg (3,775 1 cap PO DAILY 01/13/20 04/16/25 History unit)-folic acid 1 mg capsule (Ortho DF) ascorbic acid (vitamin C) 500 mg PO DAILY 09/30/22 04/16/25 History co G20-lyfd oil-omega 3-E 2,400 mg PO DAILY 09/30/22 04/16/25 History cyanocobalamin (vitamin B-12) 1,000 mg PO DAILY 09/30/22 04/16/25 History lisinopril 10 mg tablet 10 mg PO DAILY 09/30/22 04/16/25 History multivitamin with minerals-folic 1 tablet PO DAILY 09/30/22 04/16/25 History acid 0.4 mg tablet metronidazole 250 mg tablet 500 mg (2 x 250 mg) PO Q8HR #16 10/02/22 04/16/25 Rx tabs famotidine 40 mg tablet 40 mg PO DAILY 04/07/25 04/16/25 History ibandronate sodium 150 mg PO MONTHLY 04/07/25 04/07/25 History losartan 25 mg tablet 25 mg PO DAILY 04/07/25 04/16/25 History pantoprazole 40 mg tablet,delayed 40 mg PO Q12H 04/07/25 04/16/25 History release tramadol 50 mg tablet 50 mg PO DAILY PRN pain 04/07/25 04/16/25 History Patient hx anesthesia problems: none Family hx anesthesia problems: none Results Review: All pre-operative results and documents have been reviewed as part of the pre-operative evaluation. COUNT INCLUDES THE [facility] Past Medical History Medical History Abdominal pain Leukocytosis Blood in stool Non-Hodgkin lymphoma in remission s/p chemotherapy tx in 2004 GERD (gastroesophageal reflux disease) Hyperlipidemia Hypertension CAD (coronary artery disease) Surgical History Surgical History S/P HATTIE (total abdominal hysterectomy) S/P CABG x 3 2017 Family History Family History Father Heart disease Mother Heart disease Sibling ALS (amyotrophic lateral sclerosis) Social History Social History Social History: lives at home with her . She quit tobacco in 1977 after smoking 1 pack per week 4 years. She drinks 2 alcoholic drinks per week. No drug use but used acid and marijuana when she was young. Full code. She nominates her to be the one who would make medical decisions for her if she is unable. Smoking packs per day: 1 Smoking cigarettes per day: 20.0 Years smoked: 4 Smoking pack-years: 4.00 Smoking status: Former smoker Tobacco type: cigarettes Alcohol intake: current Drinks per week: 2 Alcohol use details: a few drinks a month Substance use: never Substance use type: does not use Lack of Transportation: No Lack of Food: Never True Current Housing: I Have Housing Concerned About Future Housing: No Difficulty Paying Gas/Electric Bills: No Difficulty Paying for Meds: No Currently Unemployed: No Education: High School Diploma/GED Difficulty w/ Childcare or Family Care: No Living arrangements: with family Spiritual care concerns: No Anes - Eval Final PreProcedure Day of Procedure 04/16/25 08:11 Patient weight: normal Heart: regular rate and rhythm Lungs: clear to auscultation Airway: Mallampati scale class II Neurological: alert and oriented Last oral intake: >/= 8 hours ASA classification: III Emergent: no Anesthetic plan: proceed Anesthesia type and monitoring: general GIVS and standard monitoring Results Review: All pre-operative results and documents have been reviewed as part of the pre-operative evaluation. Informed Consent: The patient's anesthetic plan and its attendant risks and benefits were discussed with the patient/family/POA. Questions were solicited and answers provided to the satisfaction of the patient/family/POA.
[2025-04-16 08:33] VITALS: BP 117/61; PULSE 60; RESP 16; O2SAT 100
[2025-04-16 08:43] VITALS: BP 118/70; PULSE 65; RESP 20; O2SAT 100
[2025-04-16 08:53] VITALS: BP 115/73; PULSE 60; RESP 18; O2SAT 100
== END 2025-04-16 09:03 | disposition home or self-care (01) ==
PROVIDERS: PCP Nurse Practitioner; Referring Provider Nurse Practitioner; Visit Provider Internal Medicine Gastroenterology
PROC: 0DJD8ZZ Inspection of Lower Intestinal Tract, Via Natural or Artificial Opening Endoscopic (ICD-10-PCS; CPT 45378; principal; 2025-04-16 08:30)
DX: Z12.11 Encounter for screening for malignant neoplasm of colon (principal); Z87.891 Personal history of nicotine dependence
CPT/HCPCS: 45378; J2003; J2704; J7120

== ENCOUNTER 2025-05-07 14:49 | Outpatient (CLI) | payer OTHER, SELFPAY ==
--- NOTE | ~2025-05-07 | US_ITS ---
Pelvic ultrasound. Clinical History: Pelvic pain Technique: Realtime transabdominal and transvaginal scanning of the pelvis was performed. Color flow Doppler and Doppler spectral analysis were performed. Findings: The uterus is absent, compatible prior hysterectomy. Neither ovary seen. No adnexal mass seen. There is no evidence of free fluid in the cul de sac. Impression: Neither ovary seen. No adnexal mass seen. Status post hysterectomy. Reviewed, dictated and finalized at location . Impression: Neither ovary seen. No adnexal mass seen. Status post hysterectomy.
== END 2025-05-07 14:50 | disposition home or self-care (01) ==
LOC: MICIMG 14:50
PROVIDERS: PCP Nurse Practitioner; Visit Provider Nurse Practitioner
DX: R19.09 Other intra-abdominal and pelvic swelling, mass and lump (principal); Z90.710 Acquired absence of both cervix and uterus
CPT/HCPCS: 76830; 76856

== ENCOUNTER 2025-08-26 13:27 | Outpatient (CLI) | payer OTHER, SELFPAY ==
--- NOTE | ~2025-08-26 | CT_ITS ---
EXAMINATION: CT LE RT wo con DATE: 08/26/2025 13:47 INDICATION: Traumatic ecchymosis of the right lower leg TECHNIQUE: High resolution computed tomography (CT) of the right lower limb from the hip through the ankle was performed without intravenous contrast. Additional sagittal and coronal reconstructions were performed. Automated exposure control and iterative reconstruction technique were employed. The dose-length product was 1544.78 mGy-cm. COMPARISON: None FINDINGS: Bone alignment is normal. No fracture or osteonecrosis. Mild osteoarthritis at right hip without joint effusion. Chondrocalcinosis at the right knee with tricompartmental osteoarthritis, moderate severity at the patellofemoral compartment with prominent subarticular cystlike changes suggesting overlying high-grade chondromalacia at the medial lateral patellar facets and at the caudal aspect of the medial and lateral trochlea. Only mild joint space narrowing at the medial lateral compartments although this could be underestimated on nonweightbearing imaging. No right knee joint effusion. Joint spaces at the right ankle and visualized hind foot appear unremarkable with no ankle joint effusion. The uterus is not identified and has likely been surgically resected. Pelvic floor relaxation with pessary at the vaginal vault. Visualized portions of bowels including the appendix is also a bladder are unre markable. No free fluid in the pelvis. No pathologically enlarged right pelvic or inguinal lymphadenopathy. IMPRESSION: 1. Mild right hip osteoarthritis and mild to moderate tricompartmental osteoarthritis with chondrocalcinosis at the right knee. No acute osseous abnormality. Reviewed, dictated and finalized at location A. IMPRESSION: 1. Mild right hip osteoarthritis and mild to moderate tricompartmental osteoart hritis with chondrocalcinosis at the right knee. No acute osseous abnormality.
== END 2025-08-26 13:28 | disposition home or self-care (01) ==
PROVIDERS: PCP Nurse Practitioner; Visit Provider Nurse Practitioner
DX: M16.11 Unilateral primary osteoarthritis, right hip (principal); M17.11 Unilateral primary osteoarthritis, right knee; M94.261 Chondromalacia, right knee; S80.11XA Contusion of right lower leg, initial encounter; X58.XXXA Exposure to other specified factors, initial encounter
CPT/HCPCS: 73700